=== PATIENT | male | born 1960 | race Caucasian/White ===

== ENCOUNTER 2018-05-19 07:15 | Inpatient (IN) | payer SELFPAY ==
[2018-05-19 07:57] LABS: HEMATOCRIT 43.5 % (41.0-60); MEAN CORPUSCULAR HEMOGLOBIN 30.4 pg (26.0-30.0); MEAN CORPUSCULAR HGB CONC 34.6 pg (28.0-36.0); MEAN PLATELET VOLUME 7.9 fl; PLATELET COUNT 171 Th/cmm (150-400); RED BLOOD COUNT 4.94 Mil/cmm (4.30-5.70); RED CELL DISTRIBUTION WIDTH 13.3 % (11.5-20.0)
[2018-05-19 08:03] LABS: WHITE BLOOD COUNT 3.5 Th/cmm (4.8-10.8)
[2018-05-19] MEDS ORDERED: cefTRIAXone 1 GM in Sodium Chloride 0.9% 50 ML IV ONE (08:08)
[2018-05-19 08:09] LABS: ALB/GLOB RATIO 1.3 (1.0-1.8); ALBUMIN 3.2 gm/dL (4.2-5.5); ALKALINE PHOSPHATASE 38 U/L (34-104); ANION GAP 14.4 (7.0-16.0); BILIRUBIN,TOTAL 1.4 mg/dL (0.3-1.0); BUN - UREA NITROGEN 27 mg/dL (7-25); CALCIUM SERUM 8.6 mg/dL (8.6-10.3); CARBON DIOXIDE 20.9 mEq/L (21.0-31.0); CHLORIDE 99 mEq/L (98-107); CREATININE - SERUM 1.4 mg/dL (0.7-1.3); GFR AFRICAN-AMERICAN > 60.0 ml/min (>90); GFR NON AFRICAN-AMERICAN 55.7 ml/min; GLUCOSE 121 mg/dL (70-105); MAGNESIUM 1.6 mg/dL (1.9-2.7); PHOSPHOROUS 2.5 mg/dL (2.5-5.0); POTASSIUM SERUM 4.3 mEq/L (3.5-5.1); SGOT 15 U/L (13-39); SGPT/ALT 14 U/L (7-52); SODIUM SERUM 130 mEq/L (136-145); TOTAL PROTEIN,SERUM 5.7 gm/dL (6.0-8.3)
--- NOTE | 2018-05-19 08:11 | ED Physician Chart ---
ED Chief Complaint/HPI - Patient Information Date Seen:: 05/19/18 Time Seen:: 07:25 Allergies:: Allergies Allergy/AdvReac Type Severity Reaction Status Date / Time No Known Allergies Allergy Verified 05/19/18 07:23 Vitals:: Vital Signs - 8 hr 05/19/18 07:27 Temp 98.2 F HR 113 RR 24 BP 118/71 O2 Sat % 93 ED Physical Exam - Physical Examination General/Constitutional: Awake, GCS 15, Non-toxic appearing Other Gen/Cons comments:: in moderate distress, clutching his right chest. Head: Atraumatic Eyes: Lids, conjuctiva normal, PERRL, EOMI Skin: Nl inspection, No rash, No skin lesions, No ecchymosis, Well hydrated, No lymphadenopathy ENMT: External ears, nose nl Other ENMT comments:: dry mucous membranes. Poor dentition. Neck: Nontender, Full ROM w/o pain, No JVD, No nuchal rigidity, No bruit, No mass, No stridor Other Respiratory comments:: Decreased breath sounds right upper lobe minimal respiratory distress. Cardio Vascular: No murmur, gallop, rubs, NL S1 S2 Other Cardio Vascular comments:: tachycardia. GI: No tenderness/rebounding/guarding, No organomegaly, No hernia, Normal BS's, Nondistended, No mass/bruits, No McBurney tenderness : No CVA tenderness Extremities: No tenderness or effusion, Full ROM, normal strength in all extremities, No edema, Normal digits & nails Neuro/Psych: Alert/oriented, Normal sensory exam, Normal motor strength, Judgement/insight normal, Mood normal, No focal deficits Misc: Normal back, No paraspinal tenderness ED Labs/Radiology/EKG Results - Lab Results Results: Laboratory Tests 05/19/18 07:30 WBC 3.5 L RBC 4.94 Hgb 15.0 Hct 43.5 MCV 88.0 MCH 30.4 H MCHC Differential 34.6 RDW 13.3 Plt Count 171 MPV 7.9 Add Manual Diff YES ED Assessment - Assessment General Assessment: 12 lead EKG: sinus tachycardia, Nonspecific ST T wave changes. Flipped t wave in V1. EKG from 7:22:50 a.mMarely Delarosa M.D. Spoke to the housefellow, James, who says that we have one last bed available in the ICU and that the patient can be given that bed. 8:48 a.m. Sergey Martinez called at 8:50 a.m. ED Septic Shock - . Is Septic Shock (SBP<90, OR Lactate>4 mmol\L) present?: No - <6hrs of presentation: Vital Signs: Vital Signs - 8 hr 05/19/18 07:27 Temp 98.2 F HR 113 RR 24 BP 118/71 O2 Sat % 93 ED Reassessment (Disposition) - Reassessment Reassessment Condition:: Improved - Diagnosis Diagnosis:: Sepsis Hypotension Hypoxia (92% or lower) Right upper lobe pneumonia Renal insufficiency Dehydration Elevated bilirubin Low magnesium - Patient Disposition Discharge/Transfer:: Acute Care w/in this hosp Accepting Physician:: Dr. Martinez Time Called:: 09:02 a.m. Time Responded:: 09:15 Admitted to:: ICU
[2018-05-19 08:30] LABS: BAND NEUTROPHILE 20 % (0-10); BASOPHIL 0 % (0-3); EOSINOPHIL 0 % (0-5); LYMPHOCYTE 17 % (20-50); MONOCYTE 3 % (2-10); NEUTROPHILS 60 % (40-80)
[2018-05-19] MEDS ORDERED: Lactated Ringer 1,000 ML IV SCH ×2 (08:35→09:00)
[2018-05-19] MEDS ORDERED: Azithromycin 500 MG in Sodium Chloride 0.9% 250 ML IV ONE (08:35)
[2018-05-19] MEDS ORDERED: Maalox 30 mL Cup PO ONE (08:55)
[2018-05-19] MEDS ORDERED: Lactated Ringer 1,000 ML IV ONE ×2 (08:57→11:04)
[2018-05-19] MEDS ORDERED: D5-0.9NS w/KCL 20mEq 1,000 ML IV ONE (09:17)
[2018-05-19 09:21] LABS: INR 1.21 (0.5-1.4); PROTHROMBIN TIME (TEST) 12.7 SECONDS (9.5-11.5)
[2018-05-19] MEDS ORDERED: Azithromycin 500 MG in Sodium Chloride 0.9% 250 ML IV SCH (09:30)
--- NOTE | 2018-05-19 09:33 | Diagnostic Imaging Report ---
Portable chest x-ray HISTORY: Pain The overall heart size appears normal. There is extensive abnormal parenchymal density with suggestion of possible pleural involvement noted in the right upper hemithorax. Findings may be associated with pneumonia. Underlying pathology including neoplasm cannot be excluded. Clinical correlation is needed. If necessary, a follow-up CT scan would be helpful. IMPRESSION: 1. Extensive abnormal density within the right upper hemithorax but appears to be both parenchymal and pleural. Changes may be related to pneumonia. However, a neoplastic etiology cannot be excluded. Clinical correlation and if necessary a follow-up CT scan would provide for further assessment.
[2018-05-19] MEDS: Albuterol/Ipratropium Neb 3 ML AERS HHN SCH ×4 (11:18→22:24)
[2018-05-19] MEDS: Enoxaparin 40 mg/0.4 mL 0.4mL Syr SUBQ SCH (14:08)
[2018-05-19] MEDS: Levofloxacin 750mg/150mL 750 MG/150 ML BAG IV SCH (14:09)
--- NOTE | 2018-05-19 14:26 | History & Physical ---
ADMIT DATE: 05/19/2018 CHIEF COMPLAINT: Cough, shortness of breath, right-sided chest pain for 2 days' duration. HISTORY OF PRESENT ILLNESS: The patient is a 57-year-old male with long history of chronic smoking, presented to the Emergency Room with cough, shortness of breath, right-sided chest pain for 2 days' duration, evaluated by the ER physician. Initial workup significant for right upper lobe pneumonia with bandemia, lactic acidosis, and hypotension. The patient received 2 liter fluid in the Emergency Room and admitted to ICU. The patient started on IV antibiotic, IV fluid. Blood culture ordered. Pulmonology and Infectious Disease consultation obtained. The patient denies any nausea, any vomiting. No dysuria or hematuria. The patient denies any hospitalization other than for hernia repair and appendectomy. He does not see any physician. He does not have a primary physician and he does not take any medication. PAST MEDICAL HISTORY: Negative. PAST SURGICAL HISTORY: Inguinal hernia repair, appendectomy. ALLERGIES: None. MEDICATIONS: None. SOCIAL HISTORY: Chronic smoker. No alcohol or drugs. 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 FAMILY HISTORY: Noncontributory. REVIEW OF SYSTEMS: RENAL SYSTEM: No history of chronic renal disorder. CARDIOVASCULAR SYSTEM: No coronary artery disease. ENDOCRINE SYSTEM: No diabetes or thyroid problem. GASTROINTESTINAL SYSTEM: No upper or lower gastrointestinal bleed. NEUROLOGICAL SYSTEM: No seizure disorder. MUSCULOSKELETAL SYSTEM: No muscular dystrophy. HEMATOLOGIC SYSTEM: No bleeding tendencies. RESPIRATORY SYSTEM: Chronic smoker. GENITOURINARY: No dysuria or hematuria. PHYSICAL EXAMINATION: GENERAL: He is awake, alert, oriented, not in pain or distress. VITAL SIGNS: Temperature 99.6, heart rate 98, blood pressure 95/55. HEENT: Normocephalic. Pupils reactive to light and accommodation. Sclerae clear. NECK: Supple. Negative for lymphadenopathy, JVD or bruit. CHEST: Diminished on the right side. HEART: S1, S2 normal. ABDOMEN: Soft, bowel sounds positive. EXTREMITIES: No edema. NEUROLOGIC: Awake, alert, oriented. No focal motor or sensory deficit. Cranial nerves 2-12 intact. LABORATORY DATA: White blood 3.5, hemoglobin 15, hematocrit 43.5, platelet 171. PT 12.7, INR 1.2. Sodium 130, potassium 4.3, BUN 27, creatinine 0.4. Lactic acid 2.44, magnesium ___.6, troponin less than 0.01. D-dimer is 1640. ASSESSMENT: 1. Right upper lobe pneumonia. 2. Dehydration. 3. Acute kidney injury. 4. Chronic smoker. 5. Lactic acidosis. PLAN: The patient admitted to the ICU under Dr. Martinez's service. Start him on D5 NS with 20 mEq KCl at 150 mL per hour, Rocephin 1 g IV daily, Zithromax 500 IV daily, DuoNeb nebulizer every 4 hours, Lovenox [address] of the chest ordered. Venous Doppler for lower extremity is ordered. The patient is a full code. CBC, CMP for tomorrow. JOB# [id number]
[2018-05-19] MEDS ORDERED: Mag Sulfate 2gm/50mL Premix 2 GM/50 ML BAG IV ONE (17:39)
[2018-05-19 18:39] LABS: URINE MICROSCOPIC INDICATED? YES; URINE SOURCE CLEAN C
[2018-05-19 18:41] LABS: URINE BILIRUBIN SMALL (NEGATIVE); URINE BLOOD NEGATIVE (NEGATIVE); URINE CLARITY CLEAR (CLEAR); URINE COLOR YELLOW; URINE GLUCOSE (UA) NEGATIVE (NEGATIVE); URINE KETONE NEGATIVE (NEGATIVE); URINE LEUKOCYTE ESTERASE NEGATIVE (NEGATIVE); URINE NITRATE NEGATIVE (NEGATIVE); URINE PROTEIN TRACE mg/dL (NEGATIVE)
[2018-05-19 18:45] LABS: URINE EPITHELIAL CELLS FEW /lpf (FEW); URINE WBC 0-2 /hpf (0-5)
[2018-05-19 18:46] LABS: URINE BACTERIA 1+ /hpf (NONE SEEN); URINE FINE GRANULAR CAST 0-2 /lpf (NONE SEEN)
[2018-05-19 18:50] LABS: AMPHETAMINE URINE POSITIVE (NEGATIVE); BARBITURATES URINE NEGATIVE (NEGATIVE); BENZODIAZEPINES QUAL URINE NEGATIVE (NEGATIVE); CANNABINOID THC NEGATIVE (NEGATIVE); COCAINE METABOLITE QUAL URINE NEGATIVE (NEGATIVE); METHADONE URINE NEGATIVE (NEGATIVE); METHAMPHETAMINES QUAL URINE POSITIVE (NEGATIVE); OPIATES (MORPHINE) QUAL. URINE NEGATIVE (NEGATIVE); PHENCYCLIDINE (PCP) URINE NEGATIVE (NEGATIVE); TRICYCLICS (TCA) QUAL. URINE NEGATIVE (NEGATIVE)
[2018-05-19] MEDS: methylPREDNISolone SS 40 mg Vial IVP SCH (21:36)
[2018-05-20] MEDS: Albuterol/Ipratropium Neb 3 ML AERS HHN SCH ×6 (02:58→22:35)
[2018-05-20 05:03] LABS: HEMOGLOBIN 14.3 gm/dL (12-16); MEAN CELL VOLUME 89.8 fl (80-99); MEAN CORPUSCULAR HEMOGLOBIN 29.9 pg (26.0-30.0); MEAN CORPUSCULAR HGB CONC 33.4 pg (28.0-36.0); MEAN PLATELET VOLUME 8.3 fl; PLATELET COUNT 157 Th/cmm (150-400); RED BLOOD COUNT 4.78 Mil/cmm (4.30-5.70); RED CELL DISTRIBUTION WIDTH 13.3 % (11.5-20.0); WHITE BLOOD COUNT 7.6 Th/cmm (4.8-10.8)
[2018-05-20] MEDS: methylPREDNISolone SS 40 mg Vial IVP SCH ×3 (05:06→21:06)
[2018-05-20 05:23] LABS: ALB/GLOB RATIO 1.2 (1.0-1.8); ALBUMIN 2.9 gm/dL (4.2-5.5); ALKALINE PHOSPHATASE 37 U/L (34-104); ANION GAP 12.3 (7.0-16.0); BILIRUBIN,TOTAL 0.6 mg/dL (0.3-1.0); BUN - UREA NITROGEN 36 mg/dL (7-25); CALCIUM SERUM 8.7 mg/dL (8.6-10.3); CHLORIDE 102 mEq/L (98-107); CREATININE - SERUM 1.5 mg/dL (0.7-1.3); GFR AFRICAN-AMERICAN > 60.0 ml/min (>90); GFR NON AFRICAN-AMERICAN 51.5 ml/min; GLUCOSE 192 mg/dL (70-105); MAGNESIUM 2.5 mg/dL (1.9-2.7); POTASSIUM SERUM 4.3 mEq/L (3.5-5.1); SGOT 9 U/L (13-39); SGPT/ALT 10 U/L (7-52); SODIUM SERUM 134 mEq/L (136-145); TOTAL PROTEIN,SERUM 5.4 gm/dL (6.0-8.3)
[2018-05-20 05:56] LABS: BAND NEUTROPHILE 10 % (0-10); LYMPHOCYTE 11 % (20-50); MONOCYTE 6 % (2-10); NEUTROPHILS 73 % (40-80)
--- NOTE | 2018-05-20 08:15 | Diagnostic Imaging Report ---
Exam: CT examination of chest. HISTORY: Pneumonia Total DLP equals 319 CTDI equals 7.3 Findings: Multiple contiguous thin section of the chest were obtained from thoracic outlet to the upper abdomen without the administration of contrast material. No prior studies available comparison. The study demonstrates extensive consolidation pneumonia right upper lung with atelectasis and collapse. There is evidence for air bronchogram. The visualized left lung parenchyma demonstrates mild peribronchial infiltrate in left base. Bilateral pleural effusions appreciated greater the right side. Mediastinal structures midline. Adenopathy is difficult to appreciated due to lack of contrast material Bony thorax demonstrate no evidence for lytic or blastic changes. IMPRESSION: Extensive opacification of the right upper lung with consolidation pneumonia area Mild left basilar infiltrate. Small bilateral pleural effusions. Follow-up dictation recommended.
--- NOTE | 2018-05-20 08:15 | Diagnostic Imaging Report ---
Exam: Doppler ultrasound examination deep venous circulation bilaterally. Diagnosis: Deep venous thrombosis. Real-time ultrasonography of lower extremities was performed utilizing color Doppler technique. The study demonstrates normal compressibility and augmentation of deep venous system bilaterally. IMPRESSION: Normal examination, no evidence of deep venous thrombosis bilaterally.
--- NOTE | 2018-05-20 08:16 | Diagnostic Imaging Report ---
Exam: Chest x-ray portable HISTORY: Placement of PICC line catheter. Findings: Portable summation of chest at 1720 hours reviewed and compared to prior study same date earlier. The study demonstrates interval placement of right-sided PICC line with tip in superior vena cava. IMPRESSION: Right-sided PICC line with the tip in superior vena cava.
[2018-05-20] MEDS: Enoxaparin 40 mg/0.4 mL 0.4mL Syr SUBQ SCH (09:05)
[2018-05-20] MEDS ORDERED: Azithromycin 500 mg in 0.9% NS 250 mL IV SCH (10:00)
[2018-05-20] MEDS: Levofloxacin 750mg/150mL 750 MG/150 ML BAG IV SCH (12:57)
[2018-05-20] MEDS ORDERED: Vancomycin HCl 1.75 GM in Sodium Chloride 0.9% 500 ML IV ONE (13:00)
--- NOTE | 2018-05-20 19:01 | Consultation ---
DATE OF CONSULTATION: 05/19/2018 HISTORY OF PRESENT ILLNESS: This is a 57-year-old male, smoker, started having right-sided pleuritic chest pain with cough and fever. The patient was found to have sepsis and septic shock, started on Levophed, admitted to ICU. Infectious consultation was called, the patient was seen right away. PAST SURGICAL HISTORY: Inguinal hernia repair, appendectomy. ALLERGIES: No allergies. FAMILY HISTORY: No family history. REVIEW OF SYSTEMS: A 14-point review of system negative except above. PHYSICAL EXAMINATION: GENERAL: He is alert, awake, sick-looking male, on Levophed 7 mcg with the following vital signs. VITAL SIGNS: Temperature 97.6, pulse 88, respiration 18, blood pressure 100/60. HEENT: Mild pallor, no icterus or plaque. NECK: Supple. LUNGS: Breath sounds bilaterally . Bronchial breathing on the right chest. ABDOMEN: Soft, bowel sounds present. NODES: No cervical lymph nodes. LABORATORY DATA: White count 3000, hemoglobin is 15 grams, platelets 171. Sputum culture is contaminated. Blood cultures sent. CT of chest shows right-sided consolidation involving the right upper lobe. DIAGNOSES: Pneumonia, sepsis, septic shock, rule out TB, isolation, AFB sputum. PLAN: Empirically started on Zosyn, vancomycin and Levaquin, supportive care. Pulmonary evaluation. Rest of the care as ordered in CPOE. Also, the patient is on steroid. Thank you Dr. Martinez for this consultation. JOB# [id number]
--- NOTE | 2018-05-20 22:09 | Internal Medicine Prog Note ---
Internal Medicine Subjective - Subjective Service Date: 05/20/18 Patient seen and examined:: with staff Patient is:: awake, verbal, in bed, talking Per staff patient has:: no adverse event Internal Medicine Objective - Results Result Diagrams: 05/20/18 04:30 05/20/18 04:30 Recent Labs: Laboratory Last Values WBC 7.6 Th/cmm (4.8-10.8) 05/20/18 04:30 RBC 4.78 Mil/cmm (4.30-5.70) 05/20/18 04:30 Hgb 14.3 gm/dL (12-16) 05/20/18 04:30 Hct 43.0 % (41.0-60) 05/20/18 04:30 MCV 89.8 fl (80-99) 05/20/18 04:30 MCH 29.9 pg (26.0-30.0) 05/20/18 04:30 MCHC Differential 33.4 pg (28.0-36.0) 05/20/18 04:30 RDW 13.3 % (11.5-20.0) 05/20/18 04:30 Plt Count 157 Th/cmm (150-400) 05/20/18 04:30 MPV 8.3 fl 05/20/18 04:30 Add Manual Diff YES 05/20/18 04:30 Band Neutrophils % 10 % (0-10) 05/20/18 04:30 Neutrophils (Manual) 73 % (40-80) 05/20/18 04:30 Lymphocytes 11 % (20-50) L 05/20/18 04:30 Monocytes 6 % (2-10) 05/20/18 04:30 Eosinophils 0 % (0-5) 05/19/18 07:30 Basophils 0 % (0-3) 05/19/18 07:30 PT 12.7 SECONDS (9.5-11.5) H 05/19/18 07:30 INR 1.21 (0.5-1.4) 05/19/18 07:30 PTT (Actin FS) 30.5 SECONDS (26.0-38.0) 05/19/18 07:30 D-Dimer 1640 ng/mL (100-400) H 05/19/18 07:30 Sodium 134 mEq/L (136-145) L 05/20/18 04:30 Potassium 4.3 mEq/L (3.5-5.1) 05/20/18 04:30 Chloride 102 mEq/L (98-107) 05/20/18 04:30 Carbon Dioxide 24.0 mEq/L (21.0-31.0) 05/20/18 04:30 Anion Gap 12.3 (7.0-16.0) 05/20/18 04:30 BUN 36 mg/dL (7-25) H 05/20/18 04:30 Creatinine 1.5 mg/dL (0.7-1.3) H 05/20/18 04:30 Est GFR ( Amer) > 60.0 ml/min (>90) 05/20/18 04:30 Est GFR (Non-Af Amer) 51.5 ml/min 05/20/18 04:30 BUN/Creatinine Ratio 24.0 05/20/18 04:30 Glucose 192 mg/dL (70-105) H 05/20/18 04:30 Whole Bld Lactic Acid 2.44 mmol/L (0.60-1.99) H* 05/19/18 11:00 Calcium 8.7 mg/dL (8.6-10.3) 05/20/18 04:30 Phosphorus 2.5 mg/dL (2.5-5.0) 05/19/18 07:30 Magnesium 2.5 mg/dL (1.9-2.7) 05/20/18 04:30 Total Bilirubin 0.6 mg/dL (0.3-1.0) 05/20/18 04:30 AST 9 U/L (13-39) L 05/20/18 04:30 ALT 10 U/L (7-52) 05/20/18 04:30 Alkaline Phosphatase 37 U/L (34-104) 05/20/18 04:30 Troponin I < 0.01 ng/mL (0.01-0.05) L 05/19/18 07:30 Total Protein 5.4 gm/dL (6.0-8.3) L 05/20/18 04:30 Albumin 2.9 gm/dL (4.2-5.5) L 05/20/18 04:30 Globulin 2.5 gm/dL 05/20/18 04:30 Albumin/Globulin Ratio 1.2 (1.0-1.8) 05/20/18 04:30 Urine Source CLEAN C 05/19/18 15:35 Urine Color YELLOW 05/19/18 15:35 Urine Clarity CLEAR (CLEAR) 05/19/18 15:35 Urine pH 5.0 (4.6 - 8.0) 05/19/18 15:35 Ur Specific [place] >= 1.030 (1.005-1.030) 05/19/18 15:35 Urine Protein TRACE mg/dL (NEGATIVE) 05/19/18 15:35 Urine Glucose (UA) NEGATIVE mg/dL (NEGATIVE) 05/19/18 15:35 Urine Ketones NEGATIVE mg/dL (NEGATIVE) 05/19/18 15:35 Urine Blood NEGATIVE (NEGATIVE) 05/19/18 15:35 Urine Nitrate NEGATIVE (NEGATIVE) 05/19/18 15:35 Urine Bilirubin SMALL (NEGATIVE) H 05/19/18 15:35 Urine Urobilinogen 2.0 E.U./dL (0.2 - 1.0) 05/19/18 15:35 Ur Leukocyte Esterase NEGATIVE (NEGATIVE) 05/19/18 15:35 Urine RBC 2-5 /hpf (0-5) H 05/19/18 15:35 Urine WBC 0-2 /hpf (0-5) 05/19/18 15:35 Ur Epithelial Cells FEW /lpf (FEW) 05/19/18 15:35 Urine Bacteria 1+ /hpf (NONE SEEN) H 05/19/18 15:35 Fine Granular Casts 0-2 /lpf (NONE SEEN) H 05/19/18 15:35 Urine Mucus FEW /lpf (FEW) 05/19/18 15:35 Urine Opiates Screen NEGATIVE (NEGATIVE) 05/19/18 15:35 Urine Methadone Screen NEGATIVE (NEGATIVE) 05/19/18 15:35 Ur Barbiturates Screen NEGATIVE (NEGATIVE) 05/19/18 15:35 Ur Tricyclics Screen NEGATIVE (NEGATIVE) 05/19/18 15:35 Ur Phencyclidine Scrn NEGATIVE (NEGATIVE) 05/19/18 15:35 Amphetamines Screen POSITIVE (NEGATIVE) H 05/19/18 15:35 U Methamphetamines Scrn POSITIVE (NEGATIVE) H 05/19/18 15:35 U Benzodiazepines Scrn NEGATIVE (NEGATIVE) 07/29/18 15:35 U Cocaine Metab Screen NEGATIVE (NEGATIVE) 05/19/18 15:35 U Cannabinoids Screen NEGATIVE (NEGATIVE) 05/19/18 15:35 - Physical Exam Vitals and I&O: Vital Signs Temp 97.9 F 05/20/18 16:00 Pulse 81 05/20/18 18:45 Resp 22 05/20/18 18:45 BP 108/62 05/20/18 18:00 Pulse Ox 96 05/20/18 20:00 Intake & Output 05/20/18 05/20/18 05/21/18 06:59 18:59 06:59 Intake Total 929.4 1728.6 Output Total 700 1200 Balance 229.4 528.6 Weight (lbs) 90.718 kg 90.718 kg Intake: Intake, IV Amount 429.4 928.6 Levofloxacin 750mg/150mL 150 750 mg In 150 ml @ 100 mls/hr IV Q24HR [facility] Rx#: [id number] Norepinephrine 4 mg In 279.4 228.6 Dextrose 5% 250 ml @ Per Protocol IV TITR PRN Rx#: [id number] Piperacillin Sodium/ 150 50 Tazobact 3.375 gm In Sodium Chloride 0.9% 50 ml @ 100 mls/hr IV Q6HR [facility] Rx#:[id number] Vancomycin HCl 1.75 gm In 500 Sodium Chloride 0.9% 500 ml @ 250 mls/hr IV ONCE ONE Rx#:[id number] Oral 500 800 Output: Urine 700 1200 Stool 0 Other: # Bowel Movements 0 Weight Source Bedscale Bedscale Active Medications: Current Medications Albuterol/Ipratropium (Duoneb Neb) 3 ml HHN Q4HRT [facility] Stop: 07/18/18 10:59 Last Admin: 05/20/18 18:44 Dose: 3 ml Enoxaparin Sodium (Lovenox) 40 mg SUBQ DAILY [facility] Stop: 07/18/18 13:14 Last Admin: 05/20/18 09:05 Dose: 40 mg Norepinephrine Bitartrate 4 mg (/ Dextrose) 254 mls @ 0 mls/hr IV TITR PRN; Protocol PRN Reason: BP MAINTENANCE (PER PROTOCOL) Stop: 07/18/18 13:08 Last Titration: 05/20/18 11:30 Dose: Infused Levofloxacin (Levaquin Pb) 750 mg in 150 mls @ 100 mls/hr IV Q24HR [facility] Stop: 07/18/18 13:29 Last Infusion: 05/20/18 14:27 Dose: Infused Piperacillin Sod/Tazobactam (Sod 3.375 gm/ Sodium Chloride) 50 mls @ 100 mls/ hr IV Q6HR [facility] Stop: 07/18/18 17:59 Last Admin: 05/20/18 17:25 Dose: 100 mls/hr Ketorolac Tromethamine (Toradol) 50 mg IVP Q4HR PRN PRN Reason: Pain Stop: 07/18/18 13:12 Last Admin: 05/20/18 21:06 Dose: 50 mg Methylprednisolone Sodium Succinate (Solu-Medrol) 40 mg IVP Q8HR [facility] Stop: 07/18/18 20:59 Last Admin: 05/20/18 21:06 Dose: 40 mg Miscellaneous (Vancomycin Iv Per Pharmacy) 1 ea MC PRN [facility] Stop: 07/18/18 18:14 General: alert HEENT: NC/AT, PERRLA, EOMI, anicteric sclerae, throat clear Neck: Supple, No JVD, No thyromegaly, +2 carotid pulse wo bruit, No LAD Lungs: congested, ronchi Cardiovascular: Normal S1, Normal S2 Abdomen: non-tender, non-distended Extremities: clear Neurological: no change Internal Medicine Assmt/Plan - Assessment Assessment: 1.RT SIDE PNEUMONIA. 2.SEPSIS - Plan Plan: CONTINUE ON CURRENT MEDICATION AND DIET. Nutritional Asmnt/Malnutr-PDOC - Dietary Evaluation Malnutrition Findings (Please click <Entered> for more info): Nutritional Asmnt/Malnutrition Start: 05/20/18 15: 26 Text: Status: Complete Freq: Protocol: Document 05/20/18 15:26 LCHENG (Rec: 05/20/18 15:50 LCHENG [email or web address]) Nutritional Asmnt/Malnutrition Patient General Information Diagnosis Sepsis, pneumonia Pertinent Medical Hx/Surgical Hx Inguinal hernia repair, appendectomy Subjective Information Pt seen in airbone isolation room d/t possible TB. RN reported pt ate very well. Per EMR, PO intake 100% of breakfast today. Pt was on levophed and weaned off in the afternoon. Current Diet Order/ Nutrition Support Cardiac Pertinent Medications levaquin, piperacillin, levophed Pertinent Labs 05/19: Na 130, BUN 27, Cr 1.4, Glucose 121 Lactic acid 2.46, 2.44 05/20: Na 134, BUN 36, Cr 1.5, Glucose 192 Nutritional Hx/Data Height 1.88 m Height (Calculated Centimeters) 188.0 Current Weight (lbs) 90.718 kg Weight (Calculated Kilograms) 90.7 Weight (Calculated Grams) 15657.5 [place] Body Weight 190 Body Mass Index (BMI) 25.7 GI Symptoms GI Symptoms None Last BM none Difficult in: None Skin Integrity/Comment: intact Current %PO Good (75-100%) Estimated Nutritional Goals BEE in Kcals: Using Current wt Calories/Kcals/Kg 25-30 Kcals Calculated 3691-0550 Protein: Using Current wt Protein g/k-1.2 monitor renal labs Protein Calculated 91-109 Fluid: ml 2275-2730ml (1ml/kcal) Nutritional Problem 2. Problem Problem increased nutrition needs ( calorie and protein) Etiology increased metabolic demand Signs/Symptoms: dx of sepsis and PNA 1. Problem Problem altered nutrition related labs Etiology electrolytes imbalance, possible renal dysfunction and endocrine dysfunction Signs/Symptoms: Na 130-134, BUN 27-36, Cr 1.4- 1.5, glucose 121-192 Malnutrition Alert Is there a minimum of two criteria No selected? Query Text:Check all the applicable criteria. A minimum of two criteria are recommended for diagnosis of either severe or non-severe malnutrition. Malnutrition Related to Morbid Obesity Malnutrition related to morbid obesity No Intervention/Recommendation Comments 1. Continue with current diet as ordered. Consider adding CCHO diet if glucose continue high. 2. Monitor PO intake, wt, labs and skin integrity 3. F/U as high risk in 2-3 days, 05/22-05/23 Expected Outcomes/Goals Expected Outcomes/Goals 1. PO intake to meet at least 75% of nutritional needs. 2. Wt stability, skin to remain intact, labs to approach WNL.
--- NOTE | 2018-05-20 23:33 | Consultation ---
DATE OF CONSULTATION: 05/20/2018 PATIENT OF: Dr. Martinez. Thank you very much, Dr. Martinez for this consultation. HISTORY OF PRESENT ILLNESS: This is a 57-year-old male who started having complaints of right-sided chest pain under his armpit a couple of days and started having shortness of breath and cough and congestion and is admitted through the Emergency Room, was found to have pneumonia, was hypotensive, placed on IV fluids and Levophed. Appears to be doing okay, still have some cough, mostly dry. Denies history for any medical problems in the past and does not take any medications. SOCIAL HISTORY: Significant for smoking. He said a half a pack a day for almost 30 years. REVIEW OF SYSTEMS: GENERAL: Some weakness and fatigue. CARDIOVASCULAR: No chest pain. RESPIRATORY: Shortness of breath, cough, congestion. GASTROINTESTINAL: No nausea or vomiting. PHYSICAL EXAMINATION: GENERAL: Awake, alert, not in acute distress. VITAL SIGNS: Temperature is 97.8, pulse 68, respirations 20, blood pressure 115/61, saturation 97%. HEENT: Atraumatic, normocephalic. Pupils equal and reactive to light and accommodation. Ears, nose and throat are normal. NECK: Supple. No JVD. CHEST: There is rhonchi, right side, clear on the left side. HEART: Regular rate and rhythm. ABDOMEN: Soft. EXTREMITIES: No edema. LABORATORY DATA: WBC 7.6, hemoglobin 14.3, hematocrit 43.0, platelets is 157. Sodium 143, potassium 4.3, BUN is 36, creatinine 1.5. Chest x-ray showed extensive consolidation of the right upper lobe area. IMPRESSION: A 57-year-old male, most likely community-acquired pneumonia, underlying airway problems, probably COPD, many years of smoking. PLAN: 1. Antibiotics. 2. Nebulized treatment. 3. Pulmonary toilet, supportive care and followup chest x-ray. Thank you very much for this consultation. We will follow the patient with you. JOB# [id number]
[2018-05-21] MEDS: Albuterol/Ipratropium Neb 3 ML AERS HHN SCH ×6 (03:14→23:50)
[2018-05-21 05:17] LABS: ANION GAP 11.9 (7.0-16.0); BUN - UREA NITROGEN 29 mg/dL (7-25); CALCIUM SERUM 8.5 mg/dL (8.6-10.3); CARBON DIOXIDE 25.2 mEq/L (21.0-31.0); CHLORIDE 102 mEq/L (98-107); CREATININE - SERUM 1.3 mg/dL (0.7-1.3); GFR AFRICAN-AMERICAN > 60.0 ml/min (>90); GFR NON AFRICAN-AMERICAN > 60.0 ml/min; GLUCOSE 267 mg/dL (70-105); POTASSIUM SERUM 4.1 mEq/L (3.5-5.1); SODIUM SERUM 135 mEq/L (136-145)
[2018-05-21] MEDS: methylPREDNISolone SS 40 mg Vial IVP SCH ×3 (05:21→20:35)
[2018-05-21] MEDS: Vancomycin HCl 1.5 GM in Sodium Chloride 0.9% 500 ML IV SCH ×2 (08:56→20:35)
[2018-05-21] MEDS: Enoxaparin 40 mg/0.4 mL 0.4mL Syr SUBQ SCH ×2 (08:56→08:59)
--- NOTE | 2018-05-21 11:50 | Internal Medicine Prog Note ---
Internal Medicine Subjective - Subjective Patient is:: awake, verbal, in bed, talking Per staff patient has:: no adverse event Internal Medicine Objective - Results Result Diagrams: 05/20/18 04:30 05/21/18 04:05 Recent Labs: Laboratory Last Values WBC 7.6 Th/cmm (4.8-10.8) 05/20/18 04:30 RBC 4.78 Mil/cmm (4.30-5.70) 05/20/18 04:30 Hgb 14.3 gm/dL (12-16) 05/20/18 04:30 Hct 43.0 % (41.0-60) 05/20/18 04:30 MCV 89.8 fl (80-99) 05/20/18 04:30 MCH 29.9 pg (26.0-30.0) 05/20/18 04:30 MCHC Differential 33.4 pg (28.0-36.0) 05/20/18 04:30 RDW 13.3 % (11.5-20.0) 05/20/18 04:30 Plt Count 157 Th/cmm (150-400) 05/20/18 04:30 MPV 8.3 fl 05/20/18 04:30 Add Manual Diff YES 05/20/18 04:30 Band Neutrophils % 10 % (0-10) 05/20/18 04:30 Neutrophils (Manual) 73 % (40-80) 05/20/18 04:30 Lymphocytes 11 % (20-50) L 05/20/18 04:30 Monocytes 6 % (2-10) 05/20/18 04:30 Eosinophils 0 % (0-5) 05/19/18 07:30 Basophils 0 % (0-3) 05/19/18 07:30 PT 12.7 SECONDS (9.5-11.5) H 05/19/18 07:30 INR 1.21 (0.5-1.4) 05/19/18 07:30 PTT (Actin FS) 30.5 SECONDS (26.0-38.0) 05/19/18 07:30 D-Dimer 1640 ng/mL (100-400) H 05/19/18 07:30 Sodium 135 mEq/L (136-145) L 05/21/18 04:05 Potassium 4.1 mEq/L (3.5-5.1) 05/21/18 04:05 Chloride 102 mEq/L (98-107) 05/21/18 04:05 Carbon Dioxide 25.2 mEq/L (21.0-31.0) 05/21/18 04:05 Anion Gap 11.9 (7.0-16.0) 05/21/18 04:05 BUN 29 mg/dL (7-25) H 05/21/18 04:05 Creatinine 1.3 mg/dL (0.7-1.3) 05/21/18 04:05 Est GFR ( Amer) > 60.0 ml/min (>90) 05/21/18 04:05 Est GFR (Non-Af Amer) > 60.0 ml/min 05/21/18 04:05 BUN/Creatinine Ratio 22.3 05/21/18 04:05 Glucose 267 mg/dL (70-105) H 05/21/18 04:05 Whole Bld Lactic Acid 2.44 mmol/L (0.60-1.99) H* 05/19/18 11:00 Calcium 8.5 mg/dL (8.6-10.3) L 05/21/18 04:05 Phosphorus 2.5 mg/dL (2.5-5.0) 05/19/18 07:30 Magnesium 2.5 mg/dL (1.9-2.7) 05/20/18 04:30 Total Bilirubin 0.6 mg/dL (0.3-1.0) 05/20/18 04:30 AST 9 U/L (13-39) L 05/20/18 04:30 ALT 10 U/L (7-52) 05/20/18 04:30 Alkaline Phosphatase 37 U/L (34-104) 05/20/18 04:30 Troponin I < 0.01 ng/mL (0.01-0.05) L 05/19/18 07:30 Total Protein 5.4 gm/dL (6.0-8.3) L 05/20/18 04:30 Albumin 2.9 gm/dL (4.2-5.5) L 05/20/18 04:30 Globulin 2.5 gm/dL 05/20/18 04:30 Albumin/Globulin Ratio 1.2 (1.0-1.8) 05/20/18 04:30 Urine Source CLEAN C 05/19/18 15:35 Urine Color YELLOW 05/19/18 15:35 Urine Clarity CLEAR (CLEAR) 05/19/18 15:35 Urine pH 5.0 (4.6 - 8.0) 05/19/18 15:35 Ur Specific [place] >= 1.030 (1.005-1.030) 05/19/18 15:35 Urine Protein TRACE mg/dL (NEGATIVE) 05/19/18 15:35 Urine Glucose (UA) NEGATIVE mg/dL (NEGATIVE) 05/19/18 15:35 Urine Ketones NEGATIVE mg/dL (NEGATIVE) 05/19/18 15:35 Urine Blood NEGATIVE (NEGATIVE) 05/19/18 15:35 Urine Nitrate NEGATIVE (NEGATIVE) 05/19/18 15:35 Urine Bilirubin SMALL (NEGATIVE) H 05/19/18 15:35 Urine Urobilinogen 2.0 E.U./dL (0.2 - 1.0) 05/19/18 15:35 Ur Leukocyte Esterase NEGATIVE (NEGATIVE) 05/19/18 15:35 Urine RBC 2-5 /hpf (0-5) H 05/19/18 15:35 Urine WBC 0-2 /hpf (0-5) 05/19/18 15:35 Ur Epithelial Cells FEW /lpf (FEW) 05/19/18 15:35 Urine Bacteria 1+ /hpf (NONE SEEN) H 05/19/18 15:35 Fine Granular Casts 0-2 /lpf (NONE SEEN) H 05/19/18 15:35 Urine Mucus FEW /lpf (FEW) 05/19/18 15:35 Urine Opiates Screen NEGATIVE (NEGATIVE) 05/19/18 15:35 Urine Methadone Screen NEGATIVE (NEGATIVE) 05/19/18 15:35 Ur Barbiturates Screen NEGATIVE (NEGATIVE) 05/19/18 15:35 Ur Tricyclics Screen NEGATIVE (NEGATIVE) 05/19/18 15:35 Ur Phencyclidine Scrn NEGATIVE (NEGATIVE) 05/19/18 15:35 Amphetamines Screen POSITIVE (NEGATIVE) H 05/19/18 15:35 U Methamphetamines Scrn POSITIVE (NEGATIVE) H 05/19/18 15:35 U Benzodiazepines Scrn NEGATIVE (NEGATIVE) 05/19/18 15:35 U Cocaine Metab Screen NEGATIVE (NEGATIVE) 05/19/18 15:35 U Cannabinoids Screen NEGATIVE (NEGATIVE) 05/19/18 15:35 - Physical Exam Vitals and I&O: Vital Signs Temp 99.2 F 05/21/18 08:00 Pulse 82 05/21/18 11:31 Resp 19 05/21/18 11:31 BP 129/79 05/21/18 10:00 Pulse Ox 96 05/21/18 11:31 Intake & Output 05/20/18 05/21/18 05/21/18 18:59 06:59 18:59 Intake Total 1778.6 700 Output Total 1200 450 Balance 578.6 250 Weight (lbs) 90.718 kg 90.718 kg Intake: Intake, IV Amount 978.6 100 Levofloxacin 750mg/150mL 150 750 mg In 150 ml @ 100 mls/hr IV Q24HR [facility] Rx#: [id number] Norepinephrine 4 mg In 228.6 Dextrose 5% 250 ml @ Per Protocol IV TITR PRN Rx#: [id number] Piperacillin Sodium/ 100 100 Tazobact 3.375 gm In Sodium Chloride 0.9% 50 ml @ 100 mls/hr IV Q6HR [facility] Rx#:[id number] Vancomycin HCl 1.75 gm In 500 Sodium Chloride 0.9% 500 ml @ 250 mls/hr IV ONCE ONE Rx#:[id number] Oral 800 600 Output: Urine 1200 450 Stool 0 Other: Weight Source Bedscale Bedscale Active Medications: Current Medications Albuterol/Ipratropium (Duoneb Neb) 3 ml HHN Q4HRT [facility] Stop: 07/18/18 10:59 Last Admin: 05/21/18 11:31 Dose: 3 ml Enoxaparin Sodium (Lovenox) 40 mg SUBQ DAILY [facility] Stop: 07/18/18 13:14 Last Admin: 05/21/18 08:59 Dose: Not Given Norepinephrine Bitartrate 4 mg (/ Dextrose) 254 mls @ 0 mls/hr IV TITR PRN; Protocol PRN Reason: BP MAINTENANCE (PER PROTOCOL) Stop: 07/18/18 13:08 Last Titration: 05/20/18 11:30 Dose: Infused Levofloxacin (Levaquin Pb) 750 mg in 150 mls @ 100 mls/hr IV Q24HR [facility] Stop: 07/18/18 13:29 Last Infusion: 05/20/18 14:27 Dose: Infused Piperacillin Sod/Tazobactam (Sod 3.375 gm/ Sodium Chloride) 50 mls @ 100 mls/ hr IV Q6HR [facility] Stop: 07/18/18 17:59 Last Infusion: 05/21/18 05:50 Dose: Infused Vancomycin HCl 1.5 gm/ Sodium (Chloride) 500 mls @ 250 mls/hr IV Q12H [facility] Stop: 07/20/18 08:59 Last Admin: 05/21/18 08:56 Dose: 250 mls/hr Ketorolac Tromethamine (Toradol) 50 mg IVP Q4HR PRN PRN Reason: Pain Stop: 07/18/18 13:12 Last Admin: 05/20/18 21:06 Dose: 50 mg Methylprednisolone Sodium Succinate (Solu-Medrol) 40 mg IVP Q8HR [facility] Stop: 07/18/18 20:59 Last Admin: 05/21/18 05:21 Dose: 40 mg Miscellaneous (Vancomycin Iv Per Pharmacy) 1 ea MC PRN [facility] Stop: 07/18/18 18:14 Ondansetron HCl (Zofran) 4 mg IV Q4H PRN PRN Reason: Nausea / Vomiting Stop: 07/20/18 02:03 Last Admin: 05/21/18 02:09 Dose: 4 mg General: alert HEENT: NC/AT, PERRLA, EOMI, anicteric sclerae, throat clear Neck: Supple, No JVD, No thyromegaly, +2 carotid pulse wo bruit, No LAD Lungs: congested, ronchi Cardiovascular: Normal S1, Normal S2 Abdomen: non-tender, non-distended Extremities: clear Neurological: no change Internal Medicine Assmt/Plan - Assessment Assessment: 1.RT SIDE PNEUMONIA. 2.SEPSIS - Plan Plan: CONTINUE ON CURRENT MEDICATION AND DIET. Nutritional Asmnt/Malnutr-PDOC - Dietary Evaluation Malnutrition Findings (Please click <Entered> for more info): Nutritional Asmnt/Malnutrition Start: 05/20/18 15: 26 Text: Status: Complete Freq: Protocol: Document 05/20/18 15:26 LCHENG (Rec: 05/20/18 15:50 LCHARJITG [email or web address]) Nutritional Asmnt/Malnutrition Patient General Information Diagnosis Sepsis, pneumonia Pertinent Medical Hx/Surgical Hx Inguinal hernia repair, appendectomy Subjective Information [facility] d/t possible TB. RN reported pt ate very well. Per EMR, PO intake 100% of breakfast today. Pt was on levophed and weaned off in the afternoon. Current Diet Order/ Nutrition Support Cardiac Pertinent Medications levaquin, piperacillin, levophed Pertinent Labs 05/19: Na 130, BUN 27, Cr 1.4, Glucose 121 Lactic acid 2.46, 2.44 05/20: Na 134, BUN 36, Cr 1.5, Glucose 192 Nutritional Hx/Data Height 1.88 m Height (Calculated Centimeters) 188.0 Current Weight (lbs) 90.718 kg Weight (Calculated Kilograms) 90.7 Weight (Calculated Grams) 52065.5 [place] Body Weight 190 Body Mass Index (BMI) 25.7 GI Symptoms GI Symptoms None Last BM none Difficult in: None Skin Integrity/Comment: intact Current %PO Good (75-100%) Estimated Nutritional Goals BEE in Kcals: Using Current wt Calories/Kcals/Kg 25-30 Kcals Calculated 1131-4699 Protein: Using Current wt Protein g/k-1.2 monitor renal labs Protein Calculated 91-109 Fluid: ml 2275-2730ml (1ml/kcal) Nutritional Problem 2. Problem Problem increased nutrition needs ( calorie and protein) Etiology increased metabolic demand Signs/Symptoms: dx of sepsis and PNA 1. Problem Problem altered nutrition related labs Etiology electrolytes imbalance, possible renal dysfunction and endocrine dysfunction Signs/Symptoms: Na 130-134, BUN 27-36, Cr 1.4- 1.5, glucose 121-192 Malnutrition Alert Is there a minimum of two criteria No selected? Query Text:Check all the applicable criteria. A minimum of two criteria are recommended for diagnosis of either severe or non-severe malnutrition. Malnutrition Related to Morbid Obesity Malnutrition related to morbid obesity No Intervention/Recommendation Comments 1. Continue with current diet as ordered. Consider adding CCHO diet if glucose continue high. 2. Monitor PO intake, wt, labs and skin integrity 3. F/U as high risk in 2-3 days, 05/22-05/23 Expected Outcomes/Goals Expected Outcomes/Goals 1. PO intake to meet at least 75% of nutritional needs. 2. Wt stability, skin to remain intact, labs to approach WNL.
--- NOTE | 2018-05-21 12:42 | Diagnostic Imaging Report ---
Portable chest x-ray HISTORY: Pneumonia Compared to prior exam of 05/19/2018, no change in extensive consolidation and pleural reaction within the right upper hemithorax. Findings correspond to changes noted on the prior CT scan of May 21, 2018. IMPRESSION: 1. No significant change from 05/19/2018 as noted above
[2018-05-21] MEDS: Levofloxacin 750mg/150mL 750 MG/150 ML BAG IV SCH (14:22)
[2018-05-21 18:21] LABS: A1C % 5.8 % (4.0-6.0)
[2018-05-22] MEDS: Albuterol/Ipratropium Neb 3 ML AERS HHN SCH ×6 (03:50→23:28)
[2018-05-22] MEDS: methylPREDNISolone SS 40 mg Vial IVP SCH ×3 (05:05→21:43)
[2018-05-22] MEDS: Enoxaparin 40 mg/0.4 mL 0.4mL Syr SUBQ SCH (09:00)
[2018-05-22] MEDS: Vancomycin HCl 1.5 GM in Sodium Chloride 0.9% 500 ML IV SCH ×2 (10:06→21:43)
[2018-05-22] MEDS: Levofloxacin 750mg/150mL 750 MG/150 ML BAG IV SCH (12:31)
--- NOTE | 2018-05-22 23:20 | Internal Medicine Prog Note ---
Internal Medicine Subjective - Subjective Service Date: 05/22/18 Patient seen and examined:: with staff (HE FEELS BETTER,LESS SOB.) Patient is:: awake, verbal, in bed, talking Per staff patient has:: no adverse event Internal Medicine Objective - Results Result Diagrams: 05/20/18 04:30 05/22/18 07:30 Recent Labs: Laboratory Last Values WBC 7.6 Th/cmm (4.8-10.8) 05/20/18 04:30 RBC 4.78 Mil/cmm (4.30-5.70) 05/20/18 04:30 Hgb 14.3 gm/dL (12-16) 05/20/18 04:30 Hct 43.0 % (41.0-60) 05/20/18 04:30 MCV 89.8 fl (80-99) 05/20/18 04:30 MCH 29.9 pg (26.0-30.0) 05/20/18 04:30 MCHC Differential 33.4 pg (28.0-36.0) 05/20/18 04:30 RDW 13.3 % (11.5-20.0) 05/20/18 04:30 Plt Count 157 Th/cmm (150-400) 05/20/18 04:30 MPV 8.3 fl 05/20/18 04:30 Add Manual Diff YES 05/20/18 04:30 Band Neutrophils % 10 % (0-10) 05/20/18 04:30 Neutrophils (Manual) 73 % (40-80) 05/20/18 04:30 Lymphocytes 11 % (20-50) L 05/20/18 04:30 Monocytes 6 % (2-10) 05/20/18 04:30 Eosinophils 0 % (0-5) 05/19/18 07:30 Basophils 0 % (0-3) 05/19/18 07:30 PT 12.7 SECONDS (9.5-11.5) H 05/19/18 07:30 INR 1.21 (0.5-1.4) 05/19/18 07:30 PTT (Actin FS) 30.5 SECONDS (26.0-38.0) 05/19/18 07:30 D-Dimer 1640 ng/mL (100-400) H 05/19/18 07:30 Sodium 135 mEq/L (136-145) L 05/21/18 04:05 Potassium 4.1 mEq/L (3.5-5.1) 05/21/18 04:05 Chloride 102 mEq/L (98-107) 05/21/18 04:05 Carbon Dioxide 25.2 mEq/L (21.0-31.0) 05/21/18 04:05 Anion Gap 11.9 (7.0-16.0) 05/21/18 04:05 BUN 24 mg/dL (7-25) 05/22/18 07:30 Creatinine 1.0 mg/dL (0.7-1.3) 05/22/18 07:30 Est GFR ( Amer) > 60.0 ml/min (>90) 05/21/18 04:05 Est GFR (Non-Af Amer) > 60.0 ml/min 05/21/18 04:05 BUN/Creatinine Ratio 22.3 05/21/18 04:05 Glucose 267 mg/dL (70-105) H 05/21/18 04:05 Hemoglobin A1c % 5.8 % (4.0-6.0) 05/20/18 04:30 Whole Bld Lactic Acid 2.44 mmol/L (0.60-1.99) H* 05/19/18 11:00 Calcium 8.5 mg/dL (8.6-10.3) L 05/21/18 04:05 Phosphorus 2.5 mg/dL (2.5-5.0) 05/19/18 07:30 Magnesium 2.5 mg/dL (1.9-2.7) 05/20/18 04:30 Total Bilirubin 0.6 mg/dL (0.3-1.0) 05/20/18 04:30 AST 9 U/L (13-39) L 05/20/18 04:30 ALT 10 U/L (7-52) 05/20/18 04:30 Alkaline Phosphatase 37 U/L (34-104) 05/20/18 04:30 Troponin I < 0.01 ng/mL (0.01-0.05) L 05/19/18 07:30 Total Protein 5.4 gm/dL (6.0-8.3) L 05/20/18 04:30 Albumin 2.9 gm/dL (4.2-5.5) L 05/20/18 04:30 Globulin 2.5 gm/dL 05/20/18 04:30 Albumin/Globulin Ratio 1.2 (1.0-1.8) 05/20/18 04:30 Urine Source CLEAN C 05/19/18 15:35 Urine Color YELLOW 05/19/18 15:35 Urine Clarity CLEAR (CLEAR) 05/19/18 15:35 Urine pH 5.0 (4.6 - 8.0) 05/19/18 15:35 Ur Specific [place] >= 1.030 (1.005-1.030) 05/19/18 15:35 Urine Protein TRACE mg/dL (NEGATIVE) 05/19/18 15:35 Urine Glucose (UA) NEGATIVE mg/dL (NEGATIVE) 05/19/18 15:35 Urine Ketones NEGATIVE mg/dL (NEGATIVE) 05/19/18 15:35 Urine Blood NEGATIVE (NEGATIVE) 05/19/18 15:35 Urine Nitrate NEGATIVE (NEGATIVE) 05/19/18 15:35 Urine Bilirubin SMALL (NEGATIVE) H 05/19/18 15:35 Urine Urobilinogen 2.0 E.U./dL (0.2 - 1.0) 05/19/18 15:35 Ur Leukocyte Esterase NEGATIVE (NEGATIVE) 05/19/18 15:35 Urine RBC 2-5 /hpf (0-5) H 05/19/18 15:35 Urine WBC 0-2 /hpf (0-5) 05/19/18 15:35 Ur Epithelial Cells FEW /lpf (FEW) 05/19/18 15:35 Urine Bacteria 1+ /hpf (NONE SEEN) H 05/19/18 15:35 Fine Granular Casts 0-2 /lpf (NONE SEEN) H 05/19/18 15:35 Urine Mucus FEW /lpf (FEW) 05/19/18 15:35 Vancomycin Trough 12.3 ug/mL (5-10) H 05/22/18 07:30 Urine Opiates Screen NEGATIVE (NEGATIVE) 05/19/18 15:35 Urine Methadone Screen NEGATIVE (NEGATIVE) 05/19/18 15:35 Ur Barbiturates Screen NEGATIVE (NEGATIVE) 05/19/18 15:35 Ur Tricyclics Screen NEGATIVE (NEGATIVE) 05/19/18 15:35 Ur Phencyclidine Scrn NEGATIVE (NEGATIVE) 05/19/18 15:35 Amphetamines Screen POSITIVE (NEGATIVE) H 05/19/18 15:35 U Methamphetamines Scrn POSITIVE (NEGATIVE) H 05/19/18 15:35 U Benzodiazepines Scrn NEGATIVE (NEGATIVE) 05/19/18 15:35 U Cocaine Metab Screen NEGATIVE (NEGATIVE) 05/19/18 15:35 U Cannabinoids Screen NEGATIVE (NEGATIVE) 05/19/18 15:35 TB (QFT) Gold In Tube Negative (Negative) 05/19/18 19:10 TB Test (QFT) Mitogen 6.66 IU/mL 05/19/18 19:10 TB Test (QFT) Antigen 0.02 IU/mL 05/19/18 19:10 TB Test Antigen - Nil <0.00 IU/mL 05/19/18 19:10 TB Test TB - Nil 0.03 IU/mL 05/19/18 19:10 TB Test (QFT) Interp 05/19/18 19:10 - Physical Exam Vitals and I&O: Vital Signs Temp 97.6 F 05/22/18 20:00 Pulse 86 05/22/18 20:00 Resp 18 05/22/18 20:00 BP 120/77 05/22/18 20:00 Pulse Ox 93 05/22/18 20:00 Intake & Output 05/22/18 05/22/18 05/23/18 06:59 18:59 06:59 Intake Total 600 2350 50 Output Total 400 520 Balance 200 1830 50 Weight (lbs) 90.718 kg 92.76 kg Intake: Intake, IV Amount 600 550 50 Piperacillin Sodium/ 100 50 50 Tazobact 3.375 gm In Sodium Chloride 0.9% 50 ml @ 100 mls/hr IV Q6HR [facility] Rx#:[id number] Vancomycin HCl 1.5 gm In 500 500 Sodium Chloride 0.9% 500 ml @ 250 mls/hr IV Q12H [facility] Rx#:[id number] Oral 1800 Output: Urine 400 520 Other: # Voids 1 # Bowel Movements 1 Weight Source Bedscale Bedscale Active Medications: Current Medications Albuterol/Ipratropium (Duoneb Neb) 3 ml HHN Q4HRT [facility] Stop: 07/18/18 10:59 Last Admin: 05/22/18 18:51 Dose: 3 ml Enoxaparin Sodium (Lovenox) 40 mg SUBQ DAILY [facility] Stop: 07/18/18 13:14 Last Admin: 05/22/18 09:00 Dose: Not Given Norepinephrine Bitartrate 4 mg (/ Dextrose) 254 mls @ 0 mls/hr IV TITR PRN; Protocol PRN Reason: BP MAINTENANCE (PER PROTOCOL) Stop: 07/18/18 13:08 Last Titration: 05/20/18 11:30 Dose: Infused Levofloxacin (Levaquin Pb) 750 mg in 150 mls @ 100 mls/hr IV Q24HR [facility] Stop: 07/18/18 13:29 Last Admin: 05/22/18 12:31 Dose: 100 mls/hr Piperacillin Sod/Tazobactam (Sod 3.375 gm/ Sodium Chloride) 50 mls @ 100 mls/ hr IV Q6HR [facility] Stop: 07/18/18 17:59 Last Infusion: 05/22/18 21:16 Dose: Infused Vancomycin HCl 1.5 gm/ Sodium (Chloride) 500 mls @ 250 mls/hr IV Q12H [facility] Stop: 07/20/18 08:59 Last Admin: 05/22/18 21:43 Dose: 250 mls/hr Ketorolac Tromethamine (Toradol) 50 mg IVP Q4HR PRN PRN Reason: Pain Stop: 07/18/18 13:12 Last Admin: 05/20/18 21:06 Dose: 50 mg Methylprednisolone Sodium Succinate (Solu-Medrol) 40 mg IVP Q8HR [facility] Stop: 07/18/18 20:59 Last Admin: 05/22/18 21:43 Dose: 40 mg Miscellaneous (Vancomycin Iv Per Pharmacy) 1 ea MC PRN [facility] Stop: 07/18/18 18:14 Ondansetron HCl (Zofran) 4 mg IV Q4H PRN PRN Reason: Nausea / Vomiting Stop: 07/20/18 02:03 Last Admin: 05/21/18 02:09 Dose: 4 mg General: alert HEENT: NC/AT, PERRLA, EOMI, anicteric sclerae, throat clear Neck: Supple, No JVD, No thyromegaly, +2 carotid pulse wo bruit, No LAD Lungs: congested, ronchi Cardiovascular: Normal S1, Normal S2 Abdomen: non-tender, non-distended Extremities: clear Neurological: no change Internal Medicine Assmt/Plan - Assessment Assessment: 1.RT SIDE PNEUMONIA. 2.SEPSIS - Plan Plan: CONTINUE ON CURRENT MEDICATION AND DIET. Nutritional Asmnt/Malnutr-PDOC - Dietary Evaluation Malnutrition Findings (Please click <Entered> for more info): Nutritional Asmnt/Malnutrition Start: 05/20/18 15: 26 Text: Status: Complete Freq: Protocol: Document 05/20/18 15:26 ELEONORA (Rec: 05/20/18 15:50 LANA PISANO-FN) Nutritional Asmnt/Malnutrition Patient General Information Diagnosis Sepsis, pneumonia Pertinent Medical Hx/Surgical Hx Inguinal hernia repair, appendectomy [facility]ive [facility]. RN reported pt ate very well. Per EMR, PO intake 100% of breakfast today. Pt was on levophed and weaned off in the afternoon. Current Diet Order/ Nutrition Support Cardiac Pertinent Medications levaquin, piperacillin, levophed Pertinent Labs 05/19: Na 130, BUN 27, Cr 1.4, Glucose 121 Lactic acid 2.46, 2.44 05/20: Na 134, BUN 36, Cr 1.5, Glucose 192 Nutritional Hx/Data Height 1.88 m Height (Calculated Centimeters) 188.0 Current Weight (lbs) 90.718 kg Weight (Calculated Kilograms) 90.7 Weight (Calculated Grams) 09470.5 [place] Body Weight 190 Body Mass Index (BMI) 25.7 GI Symptoms GI Symptoms None Last BM none Difficult in: None Skin Integrity/Comment: intact Current %PO Good (75-100%) Estimated Nutritional Goals BEE in Kcals: Using Current wt Calories/Kcals/Kg 25-30 Kcals Calculated 1107-2098 Protein: Using Current wt Protein g/k-1.2 monitor renal labs Protein Calculated 91-109 Fluid: ml 2275-2730ml (1ml/kcal) Nutritional Problem 2. Problem Problem increased nutrition needs ( calorie and protein) Etiology increased metabolic demand Signs/Symptoms: dx of sepsis and PNA 1. Problem Problem altered nutrition related labs Etiology electrolytes imbalance, possible renal dysfunction and endocrine dysfunction Signs/Symptoms: Na 130-134, BUN 27-36, Cr 1.4- 1.5, glucose 121-192 Malnutrition Alert Is there a minimum of two criteria No selected? Query Text:Check all the applicable criteria. A minimum of two criteria are recommended for diagnosis of either severe or non-severe malnutrition. Malnutrition Related to Morbid Obesity Malnutrition related to morbid obesity No Intervention/Recommendation Comments 1. Continue with current diet as ordered. Consider adding CCHO diet if glucose continue high. 2. Monitor PO intake, wt, labs and skin integrity 3. F/U as high risk in 2-3 days, 05/22-05/23 Expected Outcomes/Goals Expected Outcomes/Goals 1. PO intake to meet at least 75% of nutritional needs. 2. Wt stability, skin to remain intact, labs to approach WNL.
--- NOTE | 2018-05-23 | Progress Notes ---
DATE: 05/22/2018 PROBLEM LIST: 1. Chronic obstructive pulmonary disease. 2. Possibly infiltrate, possibly tuberculosis. SYMPTOMS: Nil, offers no specific new symptomatology. Breathing is okay. Coughing is much better than what it has been otherwise unremarkable. PHYSICAL EXAMINATION: VITAL SIGNS: The patient's recorded vital signs, temperature is 97.3, respirations 18, saturation is 97% on room air. NECK: Veins not visualized. Good bilateral carotid upstroke. CHEST: Shows occasional rhonchi with diminished air entry. The patient's chest x-ray yesterday shows no extensive changes in the right upper hemithorax. ASSESSMENT: The patient is clinically stable, unchanged improving. Awaiting for final AFB stain and continue other respiratory care underlying for chronic obstructive pulmonary disease, etc. and go from there. JOB# [id number]
[2018-05-23] MEDS: Albuterol/Ipratropium Neb 3 ML AERS HHN SCH ×6 (03:27→23:03)
[2018-05-23] MEDS: methylPREDNISolone SS 40 mg Vial IVP SCH ×3 (05:45→20:58)
[2018-05-23] MEDS: Vancomycin HCl 1.5 GM in Sodium Chloride 0.9% 500 ML IV SCH ×2 (09:39→20:57)
[2018-05-23] MEDS: Enoxaparin 40 mg/0.4 mL 0.4mL Syr SUBQ SCH (09:43)
[2018-05-23 14:21] LABS: ANTI-NUCLEAR AB SCREEN Negative
[2018-05-23] MEDS: Levofloxacin 750mg/150mL 750 MG/150 ML BAG IV SCH (14:43)
--- NOTE | 2018-05-23 21:39 | Internal Medicine Prog Note ---
Internal Medicine Subjective - Subjective Service Date: 05/23/18 Patient seen and examined:: with staff (HE FEELS BETTER) Patient is:: awake, verbal, in bed, talking Per staff patient has:: no adverse event Internal Medicine Objective - Results Result Diagrams: 05/20/18 04:30 05/22/18 07:30 Recent Labs: Laboratory Last Values WBC 7.6 Th/cmm (4.8-10.8) 05/20/18 04:30 RBC 4.78 Mil/cmm (4.30-5.70) 05/20/18 04:30 Hgb 14.3 gm/dL (12-16) 05/20/18 04:30 Hct 43.0 % (41.0-60) 05/20/18 04:30 MCV 89.8 fl (80-99) 05/20/18 04:30 MCH 29.9 pg (26.0-30.0) 05/20/18 04:30 MCHC Differential 33.4 pg (28.0-36.0) 05/20/18 04:30 RDW 13.3 % (11.5-20.0) 05/20/18 04:30 Plt Count 157 Th/cmm (150-400) 05/20/18 04:30 MPV 8.3 fl 05/20/18 04:30 Add Manual Diff YES 05/20/18 04:30 Band Neutrophils % 10 % (0-10) 05/20/18 04:30 Neutrophils (Manual) 73 % (40-80) 05/20/18 04:30 Lymphocytes 11 % (20-50) L 05/20/18 04:30 Monocytes 6 % (2-10) 05/20/18 04:30 Eosinophils 0 % (0-5) 05/19/18 07:30 Basophils 0 % (0-3) 05/19/18 07:30 PT 12.7 SECONDS (9.5-11.5) H 05/19/18 07:30 INR 1.21 (0.5-1.4) 05/19/18 07:30 PTT (Actin FS) 30.5 SECONDS (26.0-38.0) 05/19/18 07:30 D-Dimer 1640 ng/mL (100-400) H 05/19/18 07:30 Sodium 135 mEq/L (136-145) L 05/21/18 04:05 Potassium 4.1 mEq/L (3.5-5.1) 05/21/18 04:05 Chloride 102 mEq/L (98-107) 05/21/18 04:05 Carbon Dioxide 25.2 mEq/L (21.0-31.0) 05/21/18 04:05 Anion Gap 11.9 (7.0-16.0) 05/21/18 04:05 BUN 24 mg/dL (7-25) 05/22/18 07:30 Creatinine 1.0 mg/dL (0.7-1.3) 05/22/18 07:30 Est GFR ( Amer) > 60.0 ml/min (>90) 05/21/18 04:05 Est GFR (Non-Af Amer) > 60.0 ml/min 05/21/18 04:05 BUN/Creatinine Ratio 22.3 05/21/18 04:05 Glucose 267 mg/dL (70-105) H 05/21/18 04:05 Hemoglobin A1c % 5.8 % (4.0-6.0) 05/20/18 04:30 Whole Bld Lactic Acid 2.44 mmol/L (0.60-1.99) H* 05/19/18 11:00 Calcium 8.5 mg/dL (8.6-10.3) L 05/21/18 04:05 Phosphorus 2.5 mg/dL (2.5-5.0) 05/19/18 07:30 Magnesium 2.5 mg/dL (1.9-2.7) 05/20/18 04:30 Total Bilirubin 0.6 mg/dL (0.3-1.0) 05/20/18 04:30 AST 9 U/L (13-39) L 05/20/18 04:30 ALT 10 U/L (7-52) 05/20/18 04:30 Alkaline Phosphatase 37 U/L (34-104) 05/20/18 04:30 Troponin I < 0.01 ng/mL (0.01-0.05) L 05/19/18 07:30 Total Protein 5.4 gm/dL (6.0-8.3) L 05/20/18 04:30 Albumin 2.9 gm/dL (4.2-5.5) L 05/20/18 04:30 Globulin 2.5 gm/dL 05/20/18 04:30 Albumin/Globulin Ratio 1.2 (1.0-1.8) 05/20/18 04:30 Angiotensin Convert Enz 23 05/20/18 04:30 Urine Source CLEAN C 05/19/18 15:35 Urine Color YELLOW 05/19/18 15:35 Urine Clarity CLEAR (CLEAR) 05/19/18 15:35 Urine pH 5.0 (4.6 - 8.0) 05/19/18 15:35 Ur Specific [place] >= 1.030 (1.005-1.030) 05/19/18 15:35 Urine Protein TRACE mg/dL (NEGATIVE) 05/19/18 15:35 Urine Glucose (UA) NEGATIVE mg/dL (NEGATIVE) 05/19/18 15:35 Urine Ketones NEGATIVE mg/dL (NEGATIVE) 05/19/18 15:35 Urine Blood NEGATIVE (NEGATIVE) 05/19/18 15:35 Urine Nitrate NEGATIVE (NEGATIVE) 05/19/18 15:35 Urine Bilirubin SMALL (NEGATIVE) H 05/19/18 15:35 Urine Urobilinogen 2.0 E.U./dL (0.2 - 1.0) 05/19/18 15:35 Ur Leukocyte Esterase NEGATIVE (NEGATIVE) 05/19/18 15:35 Urine RBC 2-5 /hpf (0-5) H 05/19/18 15:35 Urine WBC 0-2 /hpf (0-5) 05/19/18 15:35 Ur Epithelial Cells FEW /lpf (FEW) 05/19/18 15:35 Urine Bacteria 1+ /hpf (NONE SEEN) H 05/19/18 15:35 Fine Granular Casts 0-2 /lpf (NONE SEEN) H 05/19/18 15:35 Urine Mucus FEW /lpf (FEW) 05/19/18 15:35 Vancomycin Trough 12.3 ug/mL (5-10) H 05/22/18 07:30 Urine Opiates Screen NEGATIVE (NEGATIVE) 05/19/18 15:35 Urine Methadone Screen NEGATIVE (NEGATIVE) 05/19/18 15:35 Ur Barbiturates Screen NEGATIVE (NEGATIVE) 05/19/18 15:35 Ur Tricyclics Screen NEGATIVE (NEGATIVE) 05/19/18 15:35 Ur Phencyclidine Scrn NEGATIVE (NEGATIVE) 05/19/18 15:35 Amphetamines Screen POSITIVE (NEGATIVE) H 05/19/18 15:35 U Methamphetamines Scrn POSITIVE (NEGATIVE) H 05/19/18 15:35 U Benzodiazepines Scrn NEGATIVE (NEGATIVE) 05/19/18 15:35 U Cocaine Metab Screen NEGATIVE (NEGATIVE) 05/19/18 15:35 U Cannabinoids Screen NEGATIVE (NEGATIVE) 05/19/18 15:35 [place] Screen Negative 05/20/18 04:30 Coccidioides Ab SEE REF. LAB REPORT 05/20/18 04:30 Histoplasma Ab Imm Diff SEE REF. LAB REPORT 05/20/18 04:30 L.pneumophila Antigen Negative (Negative) 05/20/18 04:30 Mycoplasma pneumon IgG 1457 U/mL (0-99) H 05/20/18 04:30 Mycoplasma pneumon IgM <770 U/mL (0-769) 05/20/18 04:30 TB (QFT) Gold In Tube Negative (Negative) 05/19/18 19:10 TB Test (QFT) Mitogen 6.66 IU/mL 05/19/18 19:10 TB Test (QFT) Antigen 0.02 IU/mL 05/19/18 19:10 TB Test Antigen - Nil <0.00 IU/mL 05/19/18 19:10 TB Test TB - Nil 0.03 IU/mL 05/19/18 19:10 TB Test (QFT) Interp 05/19/18 19:10 - Physical Exam Vitals and I&O: Vital Signs Temp 97.3 F 05/23/18 16:45 Pulse 62 05/23/18 19:55 Resp 18 05/23/18 19:55 BP 108/57 05/23/18 16:45 Pulse Ox 98 05/23/18 19:55 Intake & Output 05/23/18 05/23/18 05/24/18 06:59 18:59 06:59 Intake Total 890 750 Output Total 600 Balance 290 750 Weight (lbs) 93.44 kg Intake: Intake, IV Amount 650 750 Levofloxacin 750mg/150mL 150 750 mg In 150 ml @ 100 mls/hr IV Q24HR [facility] Rx#: [id number] Piperacillin Sodium/ 150 100 Tazobact 3.375 gm In Sodium Chloride 0.9% 50 ml @ 100 mls/hr IV Q6HR [facility] Rx#:[id number] Vancomycin HCl 1.5 gm In 500 500 Sodium Chloride 0.9% 500 ml @ 250 mls/hr IV Q12H [facility] Rx#:[id number] Oral 240 Output: Urine 600 Other: # Bowel Movements 1 Stool Characteristics Formed Weight Source Bedscale Active Medications: Current Medications Albuterol/Ipratropium (Duoneb Neb) 3 ml HHN Q4HRT [facility] Stop: 07/18/18 10:59 Last Admin: 05/23/18 19:55 Dose: 3 ml Enoxaparin Sodium (Lovenox) 40 mg SUBQ DAILY [facility] Stop: 07/18/18 13:14 Last Admin: 05/23/18 09:43 Dose: Not Given Norepinephrine Bitartrate 4 mg (/ Dextrose) 254 mls @ 0 mls/hr IV TITR PRN; Protocol PRN Reason: BP MAINTENANCE (PER PROTOCOL) Stop: 07/18/18 13:08 Last Titration: 05/20/18 11:30 Dose: Infused Levofloxacin (Levaquin Pb) 750 mg in 150 mls @ 100 mls/hr IV Q24HR [facility] Stop: 07/18/18 13:29 Last Infusion: 05/23/18 16:20 Dose: Infused Piperacillin Sod/Tazobactam (Sod 3.375 gm/ Sodium Chloride) 50 mls @ 100 mls/ hr IV Q6HR [facility] Stop: 07/18/18 17:59 Last Infusion: 05/23/18 18:28 Dose: Infused Vancomycin HCl 1.5 gm/ Sodium (Chloride) 500 mls @ 250 mls/hr IV Q12H [facility] Stop: 07/20/18 08:59 Last Admin: 05/23/18 20:57 Dose: 250 mls/hr Ketorolac Tromethamine (Toradol) 50 mg IVP Q4HR PRN PRN Reason: Pain Stop: 07/18/18 13:12 Last Admin: 05/23/18 13:20 Dose: 50 mg Methylprednisolone Sodium Succinate (Solu-Medrol) 40 mg IVP Q8HR [facility] Stop: 07/18/18 20:59 Last Admin: 05/23/18 20:58 Dose: 40 mg Miscellaneous (Vancomycin Iv Per Pharmacy) 1 ea MC PRN [facility] Stop: 07/18/18 18:14 Ondansetron HCl (Zofran) 4 mg IV Q4H PRN PRN Reason: Nausea / Vomiting Stop: 07/20/18 02:03 Last Admin: 05/21/18 02:09 Dose: 4 mg General: alert HEENT: NC/AT, PERRLA, EOMI, anicteric sclerae, throat clear Neck: Supple, No JVD, No thyromegaly, +2 carotid pulse wo bruit, No LAD Lungs: congested, ronchi Cardiovascular: Normal S1, Normal S2 Abdomen: non-tender, non-distended Extremities: clear Neurological: no change Internal Medicine Assmt/Plan - Assessment Assessment: 1.RT SIDE PNEUMONIA. 2.SEPSIS - Plan Plan: CONTINUE ON CURRENT MEDICATION AND DIET. Nutritional Asmnt/Malnutr-PDOC - Dietary Evaluation Malnutrition Findings (Please click <Entered> for more info): Nutritional Asmnt/Malnutrition Start: 05/20/18 15: 26 Text: Status: Complete Freq: Protocol: Document 05/20/18 15:26 LCHARJITG (Rec: 05/20/18 15:50 HARJIT [email or web address]) Nutritional Asmnt/Malnutrition Patient General Information Diagnosis Sepsis, pneumonia Pertinent Medical Hx/Surgical Hx Inguinal hernia repair, appendectomy Subjective Information [facility] d/t possible TB. RN reported pt ate very well. Per EMR, PO intake 100% of breakfast today. Pt was on levophed and weaned off in the afternoon. Current Diet Order/ Nutrition Support Cardiac Pertinent Medications levaquin, piperacillin, levophed Pertinent Labs 05/19: Na 130, BUN 27, Cr 1.4, Glucose 121 Lactic acid 2.46, 2.44 05/20: Na 134, BUN 36, Cr 1.5, Glucose 192 Nutritional Hx/Data Height 1.88 m Height (Calculated Centimeters) 188.0 Current Weight (lbs) 90.718 kg Weight (Calculated Kilograms) 90.7 Weight (Calculated Grams) 25144.5 [place] Body Weight 190 Body Mass Index (BMI) 25.7 GI Symptoms GI Symptoms None Last BM none Difficult in: None Skin Integrity/Comment: intact Current %PO Good (75-100%) Estimated Nutritional Goals BEE in Kcals: Using Current wt Calories/Kcals/Kg 25-30 Kcals Calculated 6539-1048 Protein: Using Current wt Protein g/k-1.2 monitor renal labs Protein Calculated 91-109 Fluid: ml 2275-2730ml (1ml/kcal) Nutritional Problem 2. Problem Problem increased nutrition needs ( calorie and protein) Etiology increased metabolic demand Signs/Symptoms: dx of sepsis and PNA 1. Problem Problem altered nutrition related labs Etiology electrolytes imbalance, possible renal dysfunction and endocrine dysfunction Signs/Symptoms: Na 130-134, BUN 27-36, Cr 1.4- 1.5, glucose 121-192 Malnutrition Alert Is there a minimum of two criteria No selected? Query Text:Check all the applicable criteria. A minimum of two criteria are recommended for diagnosis of either severe or non-severe malnutrition. Malnutrition Related to Morbid Obesity Malnutrition related to morbid obesity No Intervention/Recommendation Comments 1. Continue with current diet as ordered. Consider adding CCHO diet if glucose continue high. 2. Monitor PO intake, wt, labs and skin integrity 3. F/U as high risk in 2-3 days, 05/22-05/23 Expected Outcomes/Goals Expected Outcomes/Goals 1. PO intake to meet at least 75% of nutritional needs. 2. Wt stability, skin to remain intact, labs to approach WNL.
--- NOTE | 2018-05-23 22:38 | Progress Notes ---
DATE: 05/23/2018 PULMONARY PROGRESS NOTE PROBLEMS: 1. Right upper lobe abnormal chest x-ray. 2. Possibly tuberculosis, doubt it. 3. Underlying chronic obstructive pulmonary disease. SYMPTOMS: Nil. Says he coughed too much yesterday, has some muscle spasm on the right side, but otherwise no specific new symptoms. He claims to be given all of these samples as needed for checking out acid fast. PHYSICAL EXAMINATION: GENERAL: The patient is not in any distress. VITAL SIGNS: Temperature is 98.3, blood pressure 150/60, saturation 94-97 on room air. ENT: Shows no new changes. CHEST: Shows slightly diminished air entry at the bases, otherwise unremarkable. HEART: Regular. ABDOMEN: Soft, nontender. LABORATORY DATA: Acid fast stain is still finally pending. PLANS AND SUGGESTIONS: We will continue current treatment, monitoring. Await for final three results for acid fast stain and go from there. JOB# [id number]
[2018-05-24] MEDS: Albuterol/Ipratropium Neb 3 ML AERS HHN SCH ×6 (03:29→22:38)
[2018-05-24] MEDS: methylPREDNISolone SS 40 mg Vial IVP SCH ×3 (05:45→21:24)
[2018-05-24] MEDS: Vancomycin HCl 1.5 GM in Sodium Chloride 0.9% 500 ML IV SCH ×2 (09:09→21:26)
[2018-05-24] MEDS: Enoxaparin 40 mg/0.4 mL 0.4mL Syr SUBQ SCH (09:10)
[2018-05-24] MEDS: Levofloxacin 750mg/150mL 750 MG/150 ML BAG IV SCH (14:59)
--- NOTE | 2018-05-24 19:13 | Internal Medicine Prog Note ---
Internal Medicine Subjective - Subjective Service Date: 05/24/18 Patient seen and examined:: without staff (HE FEELS WELL) Patient is:: awake, verbal, in bed, talking Per staff patient has:: no adverse event Internal Medicine Objective - Results Result Diagrams: 05/20/18 04:30 05/22/18 07:30 Recent Labs: Laboratory Last Values WBC 7.6 Th/cmm (4.8-10.8) 05/20/18 04:30 RBC 4.78 Mil/cmm (4.30-5.70) 05/20/18 04:30 Hgb 14.3 gm/dL (12-16) 05/20/18 04:30 Hct 43.0 % (41.0-60) 05/20/18 04:30 MCV 89.8 fl (80-99) 05/20/18 04:30 MCH 29.9 pg (26.0-30.0) 05/20/18 04:30 MCHC Differential 33.4 pg (28.0-36.0) 05/20/18 04:30 RDW 13.3 % (11.5-20.0) 05/20/18 04:30 Plt Count 157 Th/cmm (150-400) 05/20/18 04:30 MPV 8.3 fl 05/20/18 04:30 Add Manual Diff YES 05/20/18 04:30 Band Neutrophils % 10 % (0-10) 05/20/18 04:30 Neutrophils (Manual) 73 % (40-80) 05/20/18 04:30 Lymphocytes 11 % (20-50) L 05/20/18 04:30 Monocytes 6 % (2-10) 05/20/18 04:30 Eosinophils 0 % (0-5) 05/19/18 07:30 Basophils 0 % (0-3) 05/19/18 07:30 PT 12.7 SECONDS (9.5-11.5) H 05/19/18 07:30 INR 1.21 (0.5-1.4) 05/19/18 07:30 PTT (Actin FS) 30.5 SECONDS (26.0-38.0) 05/19/18 07:30 D-Dimer 1640 ng/mL (100-400) H 05/19/18 07:30 Sodium 135 mEq/L (136-145) L 05/21/18 04:05 Potassium 4.1 mEq/L (3.5-5.1) 05/21/18 04:05 Chloride 102 mEq/L (98-107) 05/21/18 04:05 Carbon Dioxide 25.2 mEq/L (21.0-31.0) 05/21/18 04:05 Anion Gap 11.9 (7.0-16.0) 05/21/18 04:05 BUN 24 mg/dL (7-25) 05/22/18 07:30 Creatinine 1.0 mg/dL (0.7-1.3) 05/22/18 07:30 Est GFR ( Amer) > 60.0 ml/min (>90) 05/21/18 04:05 Est GFR (Non-Af Amer) > 60.0 ml/min 05/21/18 04:05 BUN/Creatinine Ratio 22.3 05/21/18 04:05 Glucose 267 mg/dL (70-105) H 05/21/18 04:05 Hemoglobin A1c % 5.8 % (4.0-6.0) 05/20/18 04:30 Whole Bld Lactic Acid 2.44 mmol/L (0.60-1.99) H* 05/19/18 11:00 Calcium 8.5 mg/dL (8.6-10.3) L 05/21/18 04:05 Phosphorus 2.5 mg/dL (2.5-5.0) 05/19/18 07:30 Magnesium 2.5 mg/dL (1.9-2.7) 05/20/18 04:30 Total Bilirubin 0.6 mg/dL (0.3-1.0) 05/20/18 04:30 AST 9 U/L (13-39) L 05/20/18 04:30 ALT 10 U/L (7-52) 05/20/18 04:30 Alkaline Phosphatase 37 U/L (34-104) 05/20/18 04:30 Troponin I < 0.01 ng/mL (0.01-0.05) L 05/19/18 07:30 Total Protein 5.4 gm/dL (6.0-8.3) L 05/20/18 04:30 Albumin 2.9 gm/dL (4.2-5.5) L 05/20/18 04:30 Globulin 2.5 gm/dL 05/20/18 04:30 Albumin/Globulin Ratio 1.2 (1.0-1.8) 05/20/18 04:30 Angiotensin Convert Enz 23 05/20/18 04:30 Urine Source CLEAN C 05/19/18 15:35 Urine Color YELLOW 05/19/18 15:35 Urine Clarity CLEAR (CLEAR) 05/19/18 15:35 Urine pH 5.0 (4.6 - 8.0) 05/19/18 15:35 Ur Specific [place] >= 1.030 (1.005-1.030) 05/19/18 15:35 Urine Protein TRACE mg/dL (NEGATIVE) 05/19/18 15:35 Urine Glucose (UA) NEGATIVE mg/dL (NEGATIVE) 05/19/18 15:35 Urine Ketones NEGATIVE mg/dL (NEGATIVE) 05/19/18 15:35 Urine Blood NEGATIVE (NEGATIVE) 05/19/18 15:35 Urine Nitrate NEGATIVE (NEGATIVE) 05/19/18 15:35 Urine Bilirubin SMALL (NEGATIVE) H 05/19/18 15:35 Urine Urobilinogen 2.0 E.U./dL (0.2 - 1.0) 05/19/18 15:35 Ur Leukocyte Esterase NEGATIVE (NEGATIVE) 05/19/18 15:35 Urine RBC 2-5 /hpf (0-5) H 05/19/18 15:35 Urine WBC 0-2 /hpf (0-5) 05/19/18 15:35 Ur Epithelial Cells FEW /lpf (FEW) 05/19/18 15:35 Urine Bacteria 1+ /hpf (NONE SEEN) H 05/19/18 15:35 Fine Granular Casts 0-2 /lpf (NONE SEEN) H 05/19/18 15:35 Urine Mucus FEW /lpf (FEW) 05/19/18 15:35 Vancomycin Trough 12.3 ug/mL (5-10) H 05/22/18 07:30 Urine Opiates Screen NEGATIVE (NEGATIVE) 05/19/18 15:35 Urine Methadone Screen NEGATIVE (NEGATIVE) 05/19/18 15:35 Ur Barbiturates Screen NEGATIVE (NEGATIVE) 05/19/18 15:35 Ur Tricyclics Screen NEGATIVE (NEGATIVE) 05/19/18 15:35 Ur Phencyclidine Scrn NEGATIVE (NEGATIVE) 05/19/18 15:35 Amphetamines Screen POSITIVE (NEGATIVE) H 05/19/18 15:35 U Methamphetamines Scrn POSITIVE (NEGATIVE) H 05/19/18 15:35 U Benzodiazepines Scrn NEGATIVE (NEGATIVE) 05/19/18 15:35 U Cocaine Metab Screen NEGATIVE (NEGATIVE) 05/19/18 15:35 U Cannabinoids Screen NEGATIVE (NEGATIVE) 05/19/18 15:35 [place] Screen Negative 05/20/18 04:30 Coccidioides Ab SEE REF. LAB REPORT 05/20/18 04:30 Histoplasma Ab Imm Diff SEE REF. LAB REPORT 05/20/18 04:30 L.pneumophila Antigen Negative (Negative) 05/20/18 04:30 Mycoplasma pneumon IgG 1457 U/mL (0-99) H 05/20/18 04:30 Mycoplasma pneumon IgM <770 U/mL (0-769) 05/20/18 04:30 TB (QFT) Gold In Tube Negative (Negative) 05/19/18 19:10 TB Test (QFT) Mitogen 6.66 IU/mL 05/19/18 19:10 TB Test (QFT) Antigen 0.02 IU/mL 05/19/18 19:10 TB Test Antigen - Nil <0.00 IU/mL 05/19/18 19:10 TB Test TB - Nil 0.03 IU/mL 05/19/18 19:10 TB Test (QFT) Interp 05/19/18 19:10 - Physical Exam Vitals and I&O: Vital Signs Temp 97.4 F 05/24/18 12:00 Pulse 83 05/24/18 19:05 Resp 18 05/24/18 19:05 BP 118/61 05/24/18 12:00 Pulse Ox 97 05/24/18 19:05 Intake & Output 05/24/18 05/24/18 05/25/18 06:59 18:59 06:59 Intake Total 600 50 Output Total 1200 Balance 600 -1150 Weight (lbs) 92.986 kg Intake: Intake, IV Amount 600 50 Piperacillin Sodium/ 100 50 Tazobact 3.375 gm In Sodium Chloride 0.9% 50 ml @ 100 mls/hr IV Q6HR [facility] Rx#:[id number] Vancomycin HCl 1.5 gm In 500 Sodium Chloride 0.9% 500 ml @ 250 mls/hr IV Q12H [facility] Rx#:[id number] Output: Urine 1200 Other: # Voids 3 Weight Source Patient stated Active Medications: Current Medications Albuterol/Ipratropium (Duoneb Neb) 3 ml HHN Q4HRT [facility] Stop: 07/18/18 10:59 Last Admin: 05/24/18 19:01 Dose: 3 ml Enoxaparin Sodium (Lovenox) 40 mg SUBQ DAILY [facility] Stop: 07/18/18 13:14 Last Admin: 05/24/18 09:10 Dose: 40 mg Norepinephrine Bitartrate 4 mg (/ Dextrose) 254 mls @ 0 mls/hr IV TITR PRN; Protocol PRN Reason: BP MAINTENANCE (PER PROTOCOL) Stop: 07/18/18 13:08 Last Titration: 05/20/18 11:30 Dose: Infused Levofloxacin (Levaquin Pb) 750 mg in 150 mls @ 100 mls/hr IV Q24HR [facility] Stop: 07/18/18 13:29 Last Admin: 05/24/18 14:59 Dose: 100 mls/hr Piperacillin Sod/Tazobactam (Sod 3.375 gm/ Sodium Chloride) 50 mls @ 100 mls/ hr IV Q6HR [facility] Stop: 07/18/18 17:59 Last Admin: 05/24/18 18:16 Dose: 100 mls/hr Vancomycin HCl 1.5 gm/ Sodium (Chloride) 500 mls @ 250 mls/hr IV Q12H [facility] Stop: 07/20/18 08:59 Last Admin: 05/24/18 09:09 Dose: 250 mls/hr Methylprednisolone Sodium Succinate (Solu-Medrol) 40 mg IVP Q8HR [facility] Stop: 07/18/18 20:59 Last Admin: 05/24/18 13:14 Dose: 40 mg Miscellaneous (Vancomycin Iv Per Pharmacy) 1 ea MC PRN [facility] Stop: 07/18/18 18:14 Ondansetron HCl (Zofran) 4 mg IV Q4H PRN PRN Reason: Nausea / Vomiting Stop: 07/20/18 02:03 Last Admin: 05/21/18 02:09 Dose: 4 mg General: alert HEENT: NC/AT, PERRLA, EOMI, anicteric sclerae, throat clear Neck: Supple, No JVD, No thyromegaly, +2 carotid pulse wo bruit, No LAD Lungs: congested, ronchi Cardiovascular: Normal S1, Normal S2 Abdomen: non-tender, non-distended Extremities: clear Neurological: no change Internal Medicine Assmt/Plan - Assessment Assessment: 1.RT SIDE PNEUMONIA. 2.SEPSIS - Plan Plan: CONTINUE ON CURRENT MEDICATION AND DIET. Nutritional Asmnt/Malnutr-PDOC - Dietary Evaluation Malnutrition Findings (Please click <Entered> for more info): Nutritional Asmnt/Malnutrition Start: 05/20/18 15: 26 Text: Status: Complete Freq: Protocol: Document 05/20/18 15:26 LCHENG (Rec: 05/20/18 15:50 LCHENG [email or web address]) Nutritional Asmnt/Malnutrition Patient General Information Diagnosis Sepsis, pneumonia Pertinent Medical Hx/Surgical Hx Inguinal hernia repair, appendectomy Subjective Information Pt seen in [facility] isolation room d/t possible TB. RN reported pt ate very well. Per EMR, PO intake 100% of breakfast today. Pt was on levophed and weaned off in the afternoon. Current Diet Order/ Nutrition Support Cardiac Pertinent Medications levaquin, piperacillin, levophed Pertinent Labs 05/19: Na 130, BUN 27, Cr 1.4, Glucose 121 Lactic acid 2.46, 2.44 05/20: Na 134, BUN 36, Cr 1.5, Glucose 192 Nutritional Hx/Data Height 1.88 m Height (Calculated Centimeters) 188.0 Current Weight (lbs) 90.718 kg Weight (Calculated Kilograms) 90.7 Weight (Calculated Grams) 08746.5 [place] Body Weight 190 Body Mass Index (BMI) 25.7 GI Symptoms GI Symptoms None Last BM none Difficult in: None Skin Integrity/Comment: intact Current %PO Good (75-100%) Estimated Nutritional Goals BEE in Kcals: Using Current wt Calories/Kcals/Kg 25-30 Kcals Calculated 5873-3713 Protein: Using Current wt Protein g/k-1.2 monitor renal labs Protein Calculated 91-109 Fluid: ml 2275-2730ml (1ml/kcal) Nutritional Problem 2. Problem Problem increased nutrition needs ( calorie and protein) Etiology increased metabolic demand Signs/Symptoms: dx of sepsis and PNA 1. Problem Problem altered nutrition related labs Etiology electrolytes imbalance, possible renal dysfunction and endocrine dysfunction Signs/Symptoms: Na 130-134, BUN 27-36, Cr 1.4- 1.5, glucose 121-192 Malnutrition Alert Is there a minimum of two criteria No selected? Query Text:Check all the applicable criteria. A minimum of two criteria are recommended for diagnosis of either severe or non-severe malnutrition. Malnutrition Related to Morbid Obesity Malnutrition related to morbid obesity No Intervention/Recommendation Comments 1. Continue with current diet as ordered. Consider adding CCHO diet if glucose continue high. 2. Monitor PO intake, wt, labs and skin integrity 3. F/U as high risk in 2-3 days, 05/22-05/23 Expected Outcomes/Goals Expected Outcomes/Goals 1. PO intake to meet at least 75% of nutritional needs. 2. Wt stability, skin to remain intact, labs to approach WNL.
--- NOTE | 2018-05-25 00:36 | Progress Notes ---
DATE: 05/24/2018 PULMONARY PROGRESS NOTE PROBLEM LIST: 1. Abnormal chest x-ray. 2. Chronic obstructive pulmonary disease. 3. Waiting to rule out acid-fast. Acid-fast results are pending. SYMPTOMS: The patient is periodically coughing. No shortness of breath. No other related symptomatology. OBJECTIVE: VITAL SIGNS: T-Max 98.2, blood pressure 116/64, saturation 95% on room air. ENT: Shows no new changes. CHEST: Shows clear with diminished air entry, mostly on the right side. HEART: Regular. MICROBIOLOGY: The patient's sputum culture aspirate shows Streptococcus pneumoniae. Other acid-fast is pending. ASSESSMENT: The patient is clinically stable, possibly streptococcal tracheobronchitis, question pneumonitis. PLANS AND SUGGESTIONS: We will continue current management, IV antibiotic per ID. We will wait for acid-fast testing, etc. JOB# [id number]
[2018-05-25] MEDS: Albuterol/Ipratropium Neb 3 ML AERS HHN SCH ×4 (03:05→14:50)
[2018-05-25] MEDS: methylPREDNISolone SS 40 mg Vial IVP SCH ×2 (05:51→14:36)
[2018-05-25] MEDS: Vancomycin HCl 1.5 GM in Sodium Chloride 0.9% 500 ML IV SCH (09:58)
[2018-05-25] MEDS: Enoxaparin 40 mg/0.4 mL 0.4mL Syr SUBQ SCH (09:58)
[2018-05-25 11:12] LABS: HEMATOCRIT 42.9 % (41.0-60); HEMOGLOBIN 14.5 gm/dL (12-16); MEAN CELL VOLUME 89.1 fl (80-99); MEAN CORPUSCULAR HEMOGLOBIN 30.1 pg (26.0-30.0); MEAN CORPUSCULAR HGB CONC 33.8 pg (28.0-36.0); MEAN PLATELET VOLUME 8.2 fl; PLATELET COUNT 226 Th/cmm (150-400); RED BLOOD COUNT 4.81 Mil/cmm (4.30-5.70); RED CELL DISTRIBUTION WIDTH 13.5 % (11.5-20.0); WHITE BLOOD COUNT 13.5 Th/cmm (4.8-10.8)
[2018-05-25 11:25] LABS: ALBUMIN 2.7 gm/dL (4.2-5.5); ALKALINE PHOSPHATASE 39 U/L (34-104); ANION GAP 11.6 (7.0-16.0); BILIRUBIN,TOTAL 0.4 mg/dL (0.3-1.0); BUN - UREA NITROGEN 15 mg/dL (7-25); CALCIUM SERUM 8.5 mg/dL (8.6-10.3); CARBON DIOXIDE 25.6 mEq/L (21.0-31.0); CHLORIDE 104 mEq/L (98-107); CREATININE - SERUM 0.9 mg/dL (0.7-1.3); GFR AFRICAN-AMERICAN > 60.0 ml/min (>90); GFR NON AFRICAN-AMERICAN > 60.0 ml/min; GLUCOSE 141 mg/dL (70-105); POTASSIUM SERUM 4.2 mEq/L (3.5-5.1); SGOT 13 U/L (13-39); SGPT/ALT 20 U/L (7-52); SODIUM SERUM 137 mEq/L (136-145); TOTAL PROTEIN,SERUM 5.4 gm/dL (6.0-8.3)
[2018-05-25 12:05] LABS: ATYPICAL LYMPH 14 %; BAND NEUTROPHILE 6 % (0-10); BASOPHIL 1 % (0-3); LYMPHOCYTE 20 % (20-50); MONOCYTE 5 % (2-10); NEUTROPHILS 54 % (40-80); PLATELET ESTIMATE ADEQUATE (NORMAL)
--- NOTE | 2018-05-25 13:12 | General Progress Note ---
Subjective - Review of Systems Service Date: 05/25/18 Subjective: resting comfortably in bed eager to go home Objective - Results Result Diagrams: 05/25/18 08:14 05/25/18 08:14 Recent Labs: Laboratory Last Values WBC 13.5 Th/cmm (4.8-10.8) H 05/25/18 08:14 RBC 4.81 Mil/cmm (4.30-5.70) 05/25/18 08:14 Hgb 14.5 gm/dL (12-16) 05/25/18 08:14 Hct 42.9 % (41.0-60) 05/25/18 08:14 MCV 89.1 fl (80-99) 05/25/18 08:14 MCH 30.1 pg (26.0-30.0) H 05/25/18 08:14 MCHC Differential 33.8 pg (28.0-36.0) 05/25/18 08:14 RDW 13.5 % (11.5-20.0) 05/25/18 08:14 Plt Count 226 Th/cmm (150-400) 05/25/18 08:14 MPV 8.2 fl 05/25/18 08:14 Add Manual Diff YES 05/25/18 08:14 Band Neutrophils % 6 % (0-10) 05/25/18 08:14 Neutrophils (Manual) 54 % (40-80) 05/25/18 08:14 Lymphocytes 20 % (20-50) 05/25/18 08:14 Monocytes 5 % (2-10) 05/25/18 08:14 Eosinophils 0 % (0-5) 05/19/18 07:30 Basophils 1 % (0-3) 05/25/18 08:14 Atypical Lymphocytes 14 % 05/25/18 08:14 Platelet Estimate ADEQUATE (NORMAL) 05/25/18 08:14 PT 12.7 SECONDS (9.5-11.5) H 05/19/18 07:30 INR 1.21 (0.5-1.4) 05/19/18 07:30 PTT (Actin FS) 30.5 SECONDS (26.0-38.0) 05/19/18 07:30 D-Dimer 1640 ng/mL (100-400) H 05/19/18 07:30 Sodium 137 mEq/L (136-145) 05/25/18 08:14 Potassium 4.2 mEq/L (3.5-5.1) 05/25/18 08:14 Chloride 104 mEq/L (98-107) 05/25/18 08:14 Carbon Dioxide 25.6 mEq/L (21.0-31.0) 05/25/18 08:14 Anion Gap 11.6 (7.0-16.0) 05/25/18 08:14 BUN 15 mg/dL (7-25) 05/25/18 08:14 Creatinine 0.9 mg/dL (0.7-1.3) 05/25/18 08:14 Est GFR ( Amer) > 60.0 ml/min (>90) 05/25/18 08:14 Est GFR (Non-Af Amer) > 60.0 ml/min 05/25/18 08:14 BUN/Creatinine Ratio 16.7 05/25/18 08:14 Glucose 141 mg/dL (70-105) H 05/25/18 08:14 Hemoglobin A1c % 5.8 % (4.0-6.0) 05/20/18 04:30 Whole Bld Lactic Acid 1.37 mmol/L (0.60-1.99) 05/25/18 11:05 Calcium 8.5 mg/dL (8.6-10.3) L 05/25/18 08:14 Phosphorus 2.5 mg/dL (2.5-5.0) 05/19/18 07:30 Magnesium 2.5 mg/dL (1.9-2.7) 05/20/18 04:30 Total Bilirubin 0.4 mg/dL (0.3-1.0) 05/25/18 08:14 AST 13 U/L (13-39) 05/25/18 08:14 ALT 20 U/L (7-52) 05/25/18 08:14 Alkaline Phosphatase 39 U/L (34-104) 05/25/18 08:14 Troponin I < 0.01 ng/mL (0.01-0.05) L 05/19/18 07:30 Total Protein 5.4 gm/dL (6.0-8.3) L 05/25/18 08:14 Albumin 2.7 gm/dL (4.2-5.5) L 05/25/18 08:14 Globulin 2.7 gm/dL 05/25/18 08:14 Albumin/Globulin Ratio 1.0 (1.0-1.8) 05/25/18 08:14 Angiotensin Convert Enz 23 05/20/18 04:30 Urine Source CLEAN C 05/19/18 15:35 Urine Color YELLOW 05/19/18 15:35 Urine Clarity CLEAR (CLEAR) 05/19/18 15:35 Urine pH 5.0 (4.6 - 8.0) 05/19/18 15:35 Ur Specific [place] >= 1.030 (1.005-1.030) 05/19/18 15:35 Urine Protein TRACE mg/dL (NEGATIVE) 05/19/18 15:35 Urine Glucose (UA) NEGATIVE mg/dL (NEGATIVE) 05/19/18 15:35 Urine Ketones NEGATIVE mg/dL (NEGATIVE) 05/19/18 15:35 Urine Blood NEGATIVE (NEGATIVE) 05/19/18 15:35 Urine Nitrate NEGATIVE (NEGATIVE) 05/19/18 15:35 Urine Bilirubin SMALL (NEGATIVE) H 05/19/18 15:35 Urine Urobilinogen 2.0 E.U./dL (0.2 - 1.0) 05/19/18 15:35 Ur Leukocyte Esterase NEGATIVE (NEGATIVE) 05/19/18 15:35 Urine RBC 2-5 /hpf (0-5) H 05/19/18 15:35 Urine WBC 0-2 /hpf (0-5) 05/19/18 15:35 Ur Epithelial Cells FEW /lpf (FEW) 05/19/18 15:35 Urine Bacteria 1+ /hpf (NONE SEEN) H 05/19/18 15:35 Fine Granular Casts 0-2 /lpf (NONE SEEN) H 05/19/18 15:35 Urine Mucus FEW /lpf (FEW) 05/19/18 15:35 Vancomycin Trough 10.4 ug/mL (5-10) H 05/25/18 08:15 Urine Opiates Screen NEGATIVE (NEGATIVE) 05/19/18 15:35 Urine Methadone Screen NEGATIVE (NEGATIVE) 05/19/18 15:35 Ur Barbiturates Screen NEGATIVE (NEGATIVE) 05/19/18 15:35 Ur Tricyclics Screen NEGATIVE (NEGATIVE) 05/19/18 15:35 Ur Phencyclidine Scrn NEGATIVE (NEGATIVE) 05/19/18 15:35 Amphetamines Screen POSITIVE (NEGATIVE) H 05/19/18 15:35 U Methamphetamines Scrn POSITIVE (NEGATIVE) H 05/19/18 15:35 U Benzodiazepines Scrn NEGATIVE (NEGATIVE) 05/19/18 15:35 U Cocaine Metab Screen NEGATIVE (NEGATIVE) 05/19/18 15:35 U Cannabinoids Screen NEGATIVE (NEGATIVE) 05/19/18 15:35 [place] Screen Negative 05/20/18 04:30 Coccidioides Ab SEE REF. LAB REPORT 05/20/18 04:30 Histoplasma Ab Imm Diff SEE REF. LAB REPORT 05/20/18 04:30 L.pneumophila Antigen Negative (Negative) 05/20/18 04:30 Mycoplasma pneumon IgG 1457 U/mL (0-99) H 05/20/18 04:30 Mycoplasma pneumon IgM <770 U/mL (0-769) 05/20/18 04:30 TB (QFT) Gold In Tube Negative (Negative) 05/19/18 19:10 TB Test (QFT) Mitogen 6.66 IU/mL 05/19/18 19:10 TB Test (QFT) Antigen 0.02 IU/mL 05/19/18 19:10 TB Test Antigen - Nil <0.00 IU/mL 05/19/18 19:10 TB Test TB - Nil 0.03 IU/mL 05/19/18 19:10 TB Test (QFT) Interp 05/19/18 19:10 - Physical Exam Vitals and I&O: Vital Signs Temp 98.2 F 05/25/18 11:58 Pulse 76 05/25/18 11:58 Resp 20 05/25/18 11:58 BP 114/59 05/25/18 11:58 Pulse Ox 95 05/25/18 11:58 Intake & Output 05/24/18 05/25/18 05/25/18 18:59 06:59 18:59 Intake Total 600 500 Output Total 1200 Balance -600 500 Weight (lbs) 92.986 kg 92.986 kg Intake: Intake, IV Amount 600 500 Piperacillin Sodium/ 100 Tazobact 3.375 gm In Sodium Chloride 0.9% 50 ml @ 100 mls/hr IV Q6HR [facility] Rx#:[id number] Vancomycin HCl 1.5 gm In 500 500 Sodium Chloride 0.9% 500 ml @ 250 mls/hr IV Q12H [facility] Rx#:[id number] Output: Urine 1200 Other: # Voids 3 3 Weight Source Patient stated Patient stated Active Medications: Current Medications Albuterol/Ipratropium (Duoneb Neb) 3 ml HHN Q4HRT [facility] Stop: 07/18/18 10:59 Last Admin: 05/25/18 11:33 Dose: 3 ml Enoxaparin Sodium (Lovenox) 40 mg SUBQ DAILY [facility] Stop: 07/18/18 13:14 Last Admin: 05/25/18 09:58 Dose: 40 mg Levofloxacin (Levaquin Pb) 750 mg in 150 mls @ 100 mls/hr IV Q24HR [facility] Stop: 07/18/18 13:29 Last Admin: 05/24/18 14:59 Dose: 100 mls/hr Vancomycin HCl 1.5 gm/ Sodium (Chloride) 500 mls @ 250 mls/hr IV Q8H [facility] Stop: 07/24/18 16:59 Methylprednisolone Sodium Succinate (Solu-Medrol) 40 mg IVP Q8HR [facility] Stop: 07/18/18 20:59 Last Admin: 05/25/18 05:51 Dose: 40 mg Miscellaneous (Vancomycin Iv Per Pharmacy) 1 ea MC PRN [facility] Stop: 07/18/18 18:14 Ondansetron HCl (Zofran) 4 mg IV Q4H PRN PRN Reason: Nausea / Vomiting Stop: 07/20/18 02:03 Last Admin: 05/21/18 02:09 Dose: 4 mg General: Alert, Oriented x3, No acute distress HEENT: Atraumatic, PERRLA, EOMI Neck: Supple, JVD, Thyromegaly Cardiovascular: Regular rate, Normal S1, Normal S2 Lungs: Clear to auscultation Abdomen: Bowel sounds, Soft Assessment/Plan - Problem List Patient Problems: All Active Problems RIGHT SIDED CHEST PAIN WITH COUGH (Acute) - Assessment Assessment: bacterial pneumonia - Plan Plan: AFB reported nl d/w Dr Maximilian mcdonough and clinda x7 days steroid taper HFA f/u with PCP in one week Nutritional Asmnt/Malnutr-PDOC - Dietary Evaluation Malnutrition Findings (Please click <Entered> for more info): Nutritional Asmnt/Malnutrition Start: 05/20/18 15: 26 Text: Status: Complete Freq: Protocol: Document 05/20/18 15:26 LCHENG (Rec: 05/20/18 15:50 LCHENG [email or web address]) Nutritional Asmnt/Malnutrition Patient General Information Diagnosis Sepsis, pneumonia Pertinent Medical Hx/Surgical Hx Inguinal hernia repair, appendectomy Subjective Information Pt seen in [facility] isolation room d/t possible TB. RN reported pt ate very well. Per EMR, PO intake 100% of breakfast today. Pt was on levophed and weaned off in the afternoon. Current Diet Order/ Nutrition Support Cardiac Pertinent Medications levaquin, piperacillin, levophed Pertinent Labs 05/19: Na 130, BUN 27, Cr 1.4, Glucose 121 Lactic acid 2.46, 2.44 05/20: Na 134, BUN 36, Cr 1.5, Glucose 192 Nutritional Hx/Data Height 1.88 m Height (Calculated Centimeters) 188.0 Current Weight (lbs) 90.718 kg Weight (Calculated Kilograms) 90.7 Weight (Calculated Grams) 22179.5 [place] Body Weight 190 Body Mass Index (BMI) 25.7 GI Symptoms GI Symptoms None Last BM none Difficult in: None Skin Integrity/Comment: intact Current %PO Good (75-100%) Estimated Nutritional Goals BEE in Kcals: Using Current wt Calories/Kcals/Kg 25-30 Kcals Calculated 3718-8907 Protein: Using Current wt Protein g/k-1.2 monitor renal labs Protein Calculated 91-109 Fluid: ml 2275-2730ml (1ml/kcal) Nutritional Problem 2. Problem Problem increased nutrition needs ( calorie and protein) Etiology increased metabolic demand Signs/Symptoms: dx of sepsis and PNA 1. Problem Problem altered nutrition related labs Etiology electrolytes imbalance, possible renal dysfunction and endocrine dysfunction Signs/Symptoms: Na 130-134, BUN 27-36, Cr 1.4- 1.5, glucose 121-192 Malnutrition Alert Is there a minimum of two criteria No selected? Query Text:Check all the applicable criteria. A minimum of two criteria are recommended for diagnosis of either severe or non-severe malnutrition. Malnutrition Related to Morbid Obesity Malnutrition related to morbid obesity No Intervention/Recommendation Comments 1. Continue with current diet as ordered. Consider adding CCHO diet if glucose continue high. 2. Monitor PO intake, wt, labs and skin integrity 3. F/U as high risk in 2-3 days, 05/22-05/23 Expected Outcomes/Goals Expected Outcomes/Goals 1. PO intake to meet at least 75% of nutritional needs. 2. Wt stability, skin to remain intact, labs to approach WNL.
[2018-05-25] MEDS: Levofloxacin 750mg/150mL 750 MG/150 ML BAG IV SCH (14:36)
--- NOTE | 2018-05-25 16:35 | Progress Notes ---
DATE: 05/25/2018 PULMONARY PROGRESS NOTE PROBLEM LIST: 1. Abnormal chest x-ray. 2. Chronic obstructive pulmonary disease. 3. Streptococcal tracheobronchitis. SYMPTOMS: Nil. He has taken off the isolation. Denies of any coughing, wheezing or any significant shortness of breath. OBJECTIVE: VITAL SIGNS: The patient's recorded vital signs, temperature is 98.2, blood pressure is 114/59, saturation at mid 90s on room air. NECK: Veins not visualized. CHEST: Shows diminished air entry on the right upper lobe region, otherwise unremarkable. PERTINENT LABORATORY DATA: White count is 13.5, hemoglobin 14.5, electrolytes are okay and the patient clinically stable, improving. AFB negative x3. PLANS AND SUGGESTIONS: We will continue current management, it should be okay pulmonary [place] with oral antibiotic and go from there. JOB# [id number]
[2018-05-25] MEDS ORDERED: Vancomycin HCl 1.5 GM in Sodium Chloride 0.9% 500 ML IV SCH (17:00)
== END 2018-05-25 17:34 | disposition home or self-care (01) | DRG 871 ==
LOC: ER 07:15 → ICU 09:43 → TELE 05-21 20:25 → MSI 05-25 15:12
PROVIDERS: ADMIT Family Medicine; ATTEND Family Medicine
DX: A41.9 Sepsis, unspecified organism (principal); R65.21 Severe sepsis with septic shock; J15.9 Unspecified bacterial pneumonia; N17.9 Acute kidney failure, unspecified; E86.0 Dehydration; R09.02 Hypoxemia; N28.9 Disorder of kidney and ureter, unspecified; F17.210 Nicotine dependence, cigarettes, uncomplicated
CPT/HCPCS: 36415-UA; 71045-TC; 71250-TC; 80048-TC; 80053-TC; 80202-TC; 80307; 81001-TC; 82164-90; 82565-TC; 83036-90; 83605; 83735-TC; 84100-TC; 84484-TC; 84520-TC; 85007-TC; 85025-TC; 85379-TC; 85610-TC; 86038-90; 86480-90; 86635-90; 86698-90; 86738-90; 87070-90; 87116-90; 87205-90; 87206-90; 87449-90; 87899-90; 93005; 93970-TC-50; 94640; 94760; 96375; J0456; J0696; J1650; J1885; J1956; J2405; J2543; J2920; J3370; J3475; J7040; X6452; Z7610

== ENCOUNTER 2018-05-30 09:48 | Inpatient (IN) | payer MEDICAID ==
[2018-05-30] MEDS ORDERED: Albuterol/Ipratropium Neb 3 ML AERS HHN ONE (10:01)
[2018-05-30] MEDS ORDERED: Albuterol Nebulizer 2.5mg/3mL HHN ONE (10:03)
[2018-05-30] MEDS ORDERED: Ipratropium Neb 0.5 mg/2.5 mL UD HHN ONE (10:03)
--- NOTE | 2018-05-30 10:08 | ED Physician Chart ---
ED Chief Complaint/HPI - Patient Information Date Seen:: 05/30/18 Time Seen:: 09:50 Chief Complaint:: chest pain History of Present Illness:: Patient has had pleuritic right lateral chest wall pain for last 2 weeks. Pain was worse this morning. Patient was admitted here for 1 week for pneumonia and discharged 5-6 days ago. Allergies:: Allergies Allergy/AdvReac Type Severity Reaction Status Date / Time No Known Allergies Allergy Verified 05/19/18 07:23 Historian:: Patient Review:: Nurse's Note Reviewed ED Review of Systems - Review of Systems General/Constitutional: No fever, No chills, No weight loss, No weakness, No diaphoresis, No edema, No loss of appetite Skin: No skin lesions, No rash, No bruising Head: No headache, No light-headedness Eyes: No loss of vision, No pain, No diplopia ENT: No earache, No nasal drainage, No sore throat, No tinnitus Neck: No neck pain, No swelling, No thyromegaly, No stiffness, No mass noted Cardio Vascular: No chest pain, No palpitations, No PND, No orthopnea, No edema Pulmonary: Other (chest wall pain) GI: No nausea, No vomiting, No diarrhea, No pain, No melena, No hematochezia, No constipation, No hematemesis G/U: No dysuria, No frequency, No hematuria Musculoskeletal: No bone or joint pain, No back pain, No muscle pain Endocrine: No polyuria, No polydipsia Psychiatric: No prior psych history, No depression, No anxiety, No suicidal ideation Hematopoietic: No bruising, No lymphadenopathy Allergic/Immuno: No urticaria, No angioedema Neurological: No syncope, No focal symptoms, No weakness, No paresthesia, No headache, No seizure, No dizziness, No confusion, No vertigo ED Past Medical History - Past Medical History Past Medical History: No significant medical hx Family History: Diabetes [place] Social History: Smoker, No Alcohol, Other (smokes about 15 cigarettes a day) Surgical History: Appendectomy Psychiatricy History: None Medication: Reviewed Family Medical History - Family Member Sister History Unknown: Yes Father Ethnicity: Non- Living Status: Hx Family Coronary Artery Disease: Yes Hx Family Diabetes: Yes ED Physical Exam - Physical Examination General/Constitutional: Awake, Well-developed, well-nourished, Alert, No distress, GCS 15, Non-toxic appearing, Ambulatory Head: Atraumatic Eyes: Lids, conjuctiva normal, PERRL, EOMI Skin: Nl inspection, No rash, No skin lesions, No ecchymosis, Well hydrated, No lymphadenopathy ENMT: External ears, nose nl, Nasal exam nl Other ENMT comments:: 4/4 poor dental hygiene Neck: Nontender, Full ROM w/o pain, No JVD, No nuchal rigidity, No bruit, No mass, No stridor Respiratory: Nl effort/Exclusion, Clear to Auscultation, No Wheeze/Rhonchi/Rales Cardio Vascular: RRR, No murmur, gallop, rubs, NL S1 S2 GI: No tenderness/rebounding/guarding, No organomegaly, No hernia, Normal BS's, Nondistended, No mass/bruits, No McBurney tenderness : No CVA tenderness Extremities: No tenderness or effusion, Full ROM, normal strength in all extremities, No edema, Normal digits & nails Neuro/Psych: Alert/oriented, DTR's symmetric, Normal sensory exam, Normal motor strength, Judgement/insight normal, Mood normal, Normal gait, No focal deficits Misc: Normal back, No paraspinal tenderness ED Labs/Radiology/EKG Results - Lab Results Results: Laboratory Results - last 24 hr 05/30/18 05/30/18 05/30/18 10:00 10:00 10:13 WBC 10.4 RBC 4.83 Hgb 14.4 Hct 42.9 MCV 88.8 MCH 29.7 MCHC Differential 33.4 RDW 14.1 Plt Count 280 MPV 7.2 Neutrophils % 83.6 H Lymphocytes % 10.3 L Monocytes % 4.7 Eosinophils % 1.2 Basophils % 0.2 D-Dimer 1240 H Sodium 134 L Potassium 4.1 Chloride 104 Carbon Dioxide 23.0 Anion Gap 11.1 BUN 12 Creatinine 0.8 Est GFR ( Amer) > 60.0 Est GFR (Non-Af Amer) > 60.0 BUN/Creatinine Ratio 15.0 Glucose 145 H Calcium 8.4 L Troponin I < 0.01 L - EKG Interpretations Rate & Rhythm: normal sinus rhythm with a rate of 80 Roxana: normal ED Septic Shock - . Is Septic Shock (SBP<90, OR Lactate>4 mmol\L) present?: No ED Reassessment (Disposition) - Reassessment Reassessment:: Talk to Dr. Martinez and he wished the patient admitted to the doctor loans consultant. I then spoke to Dr. Santiago who will be the admitting physician Reassessment Condition:: Unchanged - Diagnosis Diagnosis:: Pulmonary emboli right lung; right apical pneumonia - Patient Disposition Admitted to:: Telemetry Spoke to:: Boubacar Santiago Admitting Medical Physician:: Boubacar Santiago Condition at Disposition:: Stable, Unchanged
[2018-05-30 10:23] LABS: % BASOPHILS 0.2 % (0.0-2.0); % EOSINOPHILS 1.2 % (0.0-5.0); % LYMPHOCYTES 10.3 % (20.0-50.0); % MONOCYTES 4.7 % (2.0-10.0); % NEUTROPHILS 83.6 % (40.0-80.0); EOSINOPHILE ABSOLUTE 0.1 Th/cmm (0.1-0.4); HEMATOCRIT 42.9 % (41.0-60); HEMOGLOBIN 14.4 gm/dL (12-16); LYMPHOCYTE ABSOLUTE 1.1 Th/cmm (1.5-3.0); MEAN CELL VOLUME 88.8 fl (80-99); MEAN CORPUSCULAR HEMOGLOBIN 29.7 pg (26.0-30.0); MEAN CORPUSCULAR HGB CONC 33.4 pg (28.0-36.0); MEAN PLATELET VOLUME 7.2 fl; MONOCYTE ABSOLUTE 0.5 Th/cmm (0.3-1.0); NEUTROPHILE ABSOLUTE 8.7 Th/cmm (1.8-8.0); PLATELET COUNT 280 Th/cmm (150-400); RED BLOOD COUNT 4.83 Mil/cmm (4.30-5.70); RED CELL DISTRIBUTION WIDTH 14.1 % (11.5-20.0); WHITE BLOOD COUNT 10.4 Th/cmm (4.8-10.8)
--- NOTE | 2018-05-30 10:37 | Diagnostic Imaging Report ---
CHEST X-RAY: AP view INDICATION: pain COMPARISON: Chest x-ray 05/21/[address] of the chest on 05/19/2018 FINDINGS: The prior right PICC line has been removed. Persistent right lung infiltrates are seen with consolidative changes of right upper lobe and right effusion. Heart size is normal. Spinal scoliosis is noted. IMPRESSION: Persistent right lung infiltrates with right upper lobe consolidative changes in right effusion. Underlying neoplastic process and postobstructive pneumonia cannot be excluded. Clinical correlation and continued follow-up is recommended.
[2018-05-30 10:47] LABS: ANION GAP 11.1 (7.0-16.0); BUN - UREA NITROGEN 12 mg/dL (7-25); CALCIUM SERUM 8.4 mg/dL (8.6-10.3); CHLORIDE 104 mEq/L (98-107); CREATININE - SERUM 0.8 mg/dL (0.7-1.3); GFR AFRICAN-AMERICAN > 60.0 ml/min (>90); GFR NON AFRICAN-AMERICAN > 60.0 ml/min; GLUCOSE 145 mg/dL (70-105); POTASSIUM SERUM 4.1 mEq/L (3.5-5.1); SODIUM SERUM 134 mEq/L (136-145)
[2018-05-30 10:51] LABS: DDIMER QUANT 1240 ng/mL (100-400)
--- NOTE | 2018-05-30 12:08 | Diagnostic Imaging Report ---
CT Chest PE study Indication: Shortness of breath, rule out PE Comparison: Chest x-ray the same day and CT chest on 05/19/2018 Technique: Axial images were obtained from the base of the neck to the upper abdomen, following administration of IV contrast, PE protocol. Multiplanar reconstructions were made. total DLP: 314 , [id number] FINDINGS: Assessment of pulmonary arterial vasculature is limited due to suboptimal phase of contrast opacification. There is diffuse pulmonary emboli involving the right-sided branches primarily involving the right middle and right lower lobe. No definite evidence of mediastinal lymphadenopathy. Heart size is normal. Mild atherosclerosis is noted including coronary artery calcification. There are extensive right lung infiltrates with consolidative changes involving the right upper lobe. Additional atelectatic and hypoventilatory lung changes are noted. Additional few patchy infiltrates of the left lung also noted. There is a moderate-sized right pleural effusion. The upper abdomen demonstrates no acute abnormalities. Degenerative changes of the spine are noted. IMPRESSION: Findings consistent with pulmonary emboli involving the segmental and subsegmental branches of the right side primarily involving the right lower and right middle lobes. Extensive right lung infiltrates and right upper lobe consolidative changes. Moderate size right effusion is also noted Additional few patchy left lung infiltrates. Atherosclerosis including coronary artery calcifications. Critical results were discussed with the referring team on 05/30/2018 at 12:00 PM.
[2018-05-30] MEDS ORDERED: Enoxaparin 80 mg/0.8 mL 0.8mL Syr SUBQ STA (12:18)
[2018-05-30] MEDS ORDERED: Enoxaparin 80 mg/0.8 mL 0.8mL Syr SUBQ ONE (12:29)
[2018-05-30 12:32] LABS: INR 0.96 (0.5-1.4)
--- NOTE | 2018-05-30 14:43 | Diagnostic Imaging Report ---
Bilateral lower extremity DVT study HISTORY: Pulmonary embolus COMPARISON: CT angiogram performed the same day and previous DVT study on 05/19/2018 Technique: Longitudinal and transverse sonographic images of the bilateral lower extremity veins were obtained with doppler analysis. FINDINGS: There is normal compressibility, augmentation and phasicity of the bilateral common femoral, superficial femoral, popliteal, and posterior tibial veins. No thrombus is visualized. Slow flow was visualized. IMPRESSION: Slow flow visualized in the bilateral lower extremity venous system. No evidence of DVT formation.
[2018-05-30] MEDS ORDERED: Enoxaparin Subq per Pharmacy MC SCH (15:44)
[2018-05-30] MEDS: Enoxaparin 80 mg/0.8 mL 0.8mL Syr SUBQ SCH (18:08)
[2018-05-30] MEDS: Morphine Sulfate 2 mg/mL 1mL Syr IV PRN (20:02)
[2018-05-30] MEDS: cefTRIAXone 1 GM in Sodium Chloride 0.9% 50 ML IV SCH (21:56)
[2018-05-30] MEDS: Acetaminophen 500 MG TAB PO PRN (21:56)
--- NOTE | 2018-05-30 23:17 | History & Physical ---
ADMIT DATE: 05/30/2018 CHIEF COMPLAINT: Right-sided chest pain. HISTORY OF PRESENT ILLNESS: This is a 57-year-old male who was discharged from [facility] about a week ago, diagnosed with pneumonia, was sent home on oral antibiotic. The patient stated that he started to have experiencing pleuritic type of chest pain since yesterday, so he decided to come back to the Emergency Room. The patient denies any fever. No chills, no nausea, and no vomiting. No trouble breathing or any wheezing. He denies any smoking or any drug use. The patient had an initial blood test and had elevated D-dimer. CT angio showed right pulmonary embolism. The patient was started on anticoagulation. CT was positive for pneumonia, so was given antibiotic and admitted to the hospital for treatment. PAST MEDICAL HISTORY: Recent pneumonia. Otherwise negative. PAST SURGICAL HISTORY: Negative. FAMILY HISTORY: Noncontributory. SOCIAL HISTORY: Lives at home. Denies any alcohol, tobacco, or street drug use. 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 CURRENT MEDICATIONS: Tylenol, Zithromax, Rocephin, Lovenox, vancomycin, Motrin, and Zofran. REVIEW OF SYSTEMS: Positive for chest pain. Otherwise, all 12-point system review was negative. PHYSICAL EXAMINATION: VITAL SIGNS: Temperature is 101.7, pulse 89, respirations 18, blood pressure 132/68, and oxygen saturation 93% on room air. HEART: S1 and S2 normal. LUNGS: Bilateral few rales noted. ABDOMEN: Soft and nontender. No guarding and no rigidity. NEUROLOGIC: Alert, awake, follows commands, moves all extremities. No focal deficits.. EXTREMITIES: Negative for edema, no calf tenderness noted. LABORATORY DATA AND DIAGNOSTIC STUDIES: Available laboratory data and imaging study has been reviewed. ASSESSMENT: 1. Right-sided pulmonary embolism. 2. Right-sided pneumonia. 3. Mild hyponatremia. PLAN: The patient is admitted to tele unit, started on IV antibiotic with vancomycin, Rocephin, and Zithromax. Multi special team has been consulted including Infectious Disease specialist, Hematology, and motion pictures cartoonist. Lovenox started per pharmacy dosing. Bilateral lower extremity and upper extremity Doppler ordered. Further workup per hematology and Pulmonology. Blood cultures obtained. The patient is on morphine for severe pain, Motrin as needed, Zofran for nausea and vomiting, oxygen and bronchodilator treatment as needed. Discussed with the patient regarding the condition and plan of care with nursing staff. We will follow up on the special recommendations. JOB# [id number]
--- NOTE | 2018-05-31 00:30 | Consultation ---
DATE OF CONSULTATION: 05/30/2018 PATIENT OF: Dr. Santiago. Thank you very much, Dr. Santiago for this consultation. HISTORY OF PRESENT ILLNESS: This is a 57-year-old male who was recently treated for pneumonia, discharged on antibiotics. The patient was doing better. He stated that he started having significant chest pain on the right side posteriorly and presented to the Emergency Room. His chest pain is sharp. Denies any increased shortness of breath or congestion. The patient did have a CT of the chest, which was consistent with small pulmonary embolism in the subsegmental area. The patient was given Lovenox already. PAST MEDICAL HISTORY: As above. SOCIAL HISTORY: History of smoking for almost 40 years and he quit just 2 days before last admission a couple of weeks ago. PHYSICAL EXAMINATION: GENERAL: The patient is awake, alert, and in no distress. VITAL SIGNS: Temperature is 98.3, pulse 82, respiration is 18, blood pressure is 99/56, and saturation 97% on room air. HEENT: Atraumatic and normocephalic. Pupils react to light and accommodation. Ears, nose, and throat are normal. NECK: Supple. No JVD. CHEST: There are good breath sounds bilaterally. No wheezing or crackles. HEART: Regular rate and rhythm. ABDOMEN: Soft. EXTREMITIES: No edema. LABORATORY DATA AND DIAGNOSTIC STUDIES: WBC is 10.4, hemoglobin 14.4, hematocrit 42.9, and platelets 280. Sodium is 134, potassium 4.4, BUN 12, and creatinine 0.8. Troponin is less than 0.01. Chest x-ray is still showing extensive infiltrate in right upper lobe area. IMPRESSION: This is a 57-year-old male with: 1. Pulmonary embolism. 2. Pneumonia. 3. Underlying chronic obstructive pulmonary disease. 4. persistent infiltrate RUL area. PLAN: 1. IV antibiotics. 2. Anticoagulation. 3. Followup chest x-ray. The patient needs to have an improvement on his infiltrate prior to discharge. Otherwise, may need further workup such as CT-guided biopsy or other testing. Thank you very much for this consultation. We will follow the patient with you. JOB# [id number] [facility]
[2018-05-31] MEDS: Morphine Sulfate 2 mg/mL 1mL Syr IV PRN ×6 (02:23→23:31)
[2018-05-31] MEDS: Enoxaparin 80 mg/0.8 mL 0.8mL Syr SUBQ SCH ×2 (04:50→15:08)
--- NOTE | 2018-05-31 08:39 | Diagnostic Imaging Report ---
CHEST X-RAY: AP view INDICATION: Shortness of breath COMPARISON: 05/30/2018 FINDINGS: Right effusion is seen with diffuse right lung infiltrates. There may be a trace left effusion. Heart size is normal. IMPRESSION: Right pleural effusion and extensive right lung infiltrates and right upper lobe consolidative changes..
[2018-05-31] MEDS: Azithromycin 500 MG in Sodium Chloride 0.9% 250 ML IV SCH (10:45)
--- NOTE | 2018-05-31 12:10 | Diagnostic Imaging Report ---
Bilateral upper extremity venous Doppler History: Pulmonary embolus, rule out DVT Comparison: CT angiogram chest 05/30/2016 Technique/procedure: Exam of the right side demonstrates thrombus within the right axillary and right brachial veins. No other thrombus was identified. Exam of the left side demonstrates no evidence of DVT formation. IMPRESSION: Positive DVT study with thrombus visualized in the right axillary and right brachial vein. Results were relayed to the referring team following the exam.
[2018-05-31] MEDS: cefTRIAXone 1 GM in Sodium Chloride 0.9% 50 ML IV SCH (15:02)
--- NOTE | 2018-05-31 20:12 | Consultation ---
DATE OF CONSULTATION: 05/31/2018 HEMATOLOGY ONCOLOGY CONSULTATION REFERRED BY: Dr. Santiago. REASON FOR CONSULTATION: Pulmonary embolism. HISTORY OF PRESENT ILLNESS: The patient is a 57-year-old male, who was admitted with right-sided chest pain and underwent CT angiogram showing bilateral multiple segmental and subsegmental pulmonary emboli. The patient was recently hospitalized a week ago and was discharged on antibiotics. He was at home for 4 days and mostly bedridden during that time and experienced progressive pain in the right side. Therefore, readmitted to the hospital for it. PAST MEDICAL HISTORY: Pneumonia, otherwise unremarkable. PAST SURGICAL HISTORY: None. FAMILY HISTORY: None. SOCIAL HISTORY: Denies smoking or drinking. Self-employed. MEDICATIONS: Reviewed. Currently on Lovenox, Zithromax, ceftriaxone, vancomycin, and IV hydration. PHYSICAL EXAMINATION: VITAL SIGNS: Temperature 101.7, blood pressure is stable. HEENT: Atraumatic, saturation on room air 93%. NECK: No lymphadenopathy. CHEST: Scattered rhonchi. ABDOMEN: Soft. No organomegaly. EXTREMITIES: Unremarkable. NERVOUS SYSTEM: Nonfocal. LABORATORY DATA: Chemistry: Creatinine 0.8, calcium 8.4. CBC unremarkable. Coagulation panel normal. D-dimer elevated . CT scan of the abdomen, chest and pelvis with contrast reported pulmonary emboli involving segmental and subsegmental extensive right lung infiltrate, right upper lobe consolidation, moderate right-sided effusion. ASSESSMENT: Bilateral multiple segmental and subsegmental pulmonary emboli most likely secondary to bed rest for the past one week in this patient with persistent lung infiltrates and pleural effusion. The patient is on adequate antibiotics and will need to continue the treatment until resolution of the pneumonia and improvement in performance status and becoming ambulatory without desaturation with repeat imaging study to confirm the resolution of the consolidation and effusion to confirm adequate clinical response. If there is any residual and persistent infiltrate, then biopsy will be considered. Meanwhile, continue the current Lovenox therapy and we will start Coumadin since the patient is having adequate oral intake or switch to new oral anticoagulation, Eliquis or Xarelto if the insurance allows. Thank you, Dr. Santiago, for the opportunity to participate in the care of this interesting case. [facility]# [id number]
--- NOTE | 2018-05-31 23:43 | Consultation ---
Consult Note - Consult Note Service Date: 05/31/18 Referring Physician: Boubacar Santiago Consult Note: PHYSICIAN Consultation Note: Date of Admission: 05/30/18 Purpose of Consultation: Pneumonia Chief Complaint: Patient MATT LINARES was admitted to [facility] with PULMONARY EMBOLISM, PNA. History of Present Illness: 51 mL male with no significant past medical history recently discharged from the hospital for pneumonia. He was sent home on oral antibiotic. He started feeling some periodic chest pain. She came back to the ER for further evaluation and management. As patient had elevated d-dimer CT and he was performed and showed bilateral pulmonary embolism. This also asked Drive showed right lower lobe infiltrate. Antibiotic-sherwood, Rocephin and Zithromax was started. ID consult was called for antibiotic management. Past Medical History: Patient is to pneumonia. Diagnoses HYPO-OSMOLALITY AND HYPONATREMIA (05/30/18) OTHER PULMONARY EMBOLISM WITHOUT ACUTE COR PULMONALE (05/30/18) PNEUMONIA, UNSPECIFIED ORGANISM (05/30/18) CHRONIC OBSTRUCTIVE PULMONARY DISEASE, UNSPECIFIED (05/30/18) WEAKNESS (05/30/18) Allergies Allergy/AdvReac Type Severity Reaction Status Date / Time No Known Allergies Allergy Verified 05/19/18 07:23 Vital Signs Temp 98.6 F 05/31/18 20:00 Pulse 83 05/31/18 20:00 Resp 18 05/31/18 20:00 BP 105/66 05/31/18 20:00 Pulse Ox 92 05/31/18 20:00 Intake & Output 05/31/18 05/31/18 06/01/18 06:59 18:59 06:59 Intake Total 300 400 Output Total 300 300 Balance 0 100 Weight (lbs) 87.135 kg 88.042 kg Intake: Intake, IV Amount 300 Vancomycin HCl 1.25 gm In 250 Sodium Chloride 0.9% 250 ml @ 165 mls/hr IV Q12H [facility] Rx#:[id number] cefTRIAXone 1 gm In 50 Sodium Chloride 0.9% 50 ml @ 100 mls/hr IV Q24HR [facility] Rx#:[id number] Oral 400 Output: Urine 300 300 Other: # Voids 3 # Bowel Movements 1 Stool Characteristics Soft Soft Weight Source Bedscale Bedscale Home Medication Medication Instructions Recorded Type Clindamycin HCl 300 mg PO TID 7 Days capsule 05/25/18 Rx Lactobacillus Rhamnosus GG 1 each PO BID #30 capsule 05/25/18 Rx [Culturelle] Levofloxacin [Levaquin] 500 mg PO DAILY 7 Days tab 05/25/18 Rx Current Medications Generic Name Dose Route Start Last Admin Trade Name Freq PRN Reason Stop Dose Admin Acetaminophen 500 mg 05/30/18 17:22 05/30/18 21:56 Tylenol Extra Strength PO 07/29/18 17:21 500 mg Q6HR PRN Administration FEVER Enoxaparin Sodium 80 mg 05/30/18 16:00 05/31/18 15:08 Lovenox SUBQ 07/29/18 15:59 80 mg Q12H [facility] Administration Azithromycin 500 mg/ Sodium 250 mls @ 250 mls/hr 05/31/18 09:00 05/31/18 10: 45 Chloride IV 07/30/18 08:59 250 mls/hr DAILY [facility] Administration Ceftriaxone Sodium 1 gm/ 50 mls @ 100 mls/hr 05/30/18 15:44 05/31/18 15:02 Sodium Chloride IV 07/29/18 15:43 100 mls/hr Q24HR [facility] Administration Vancomycin HCl 1.25 gm/ Sodium 250 mls @ 165 mls/hr 05/31/18 16:00 05/31/18 16:27 Chloride IV 07/30/18 15:59 165 mls/hr Q12H [facility] Administration Ibuprofen 800 mg 05/30/18 17:17 05/31/18 19:37 Motrin PO 07/29/18 17:16 800 mg TID PRN Administration MILD TO MOD. PAIN Miscellaneous 1 ea 05/30/18 15:49 Vancomycin Iv Per Pharmacy 07/29/18 15:48 PRN PRN PROTOCOL Morphine Sulfate 2 mg 05/30/18 17:15 05/31/18 23:31 Morphine IV 07/29/18 17:14 2 mg Q4HR PRN Administration Severe Pain Ondansetron HCl 4 mg 05/30/18 17:25 Zofran IV 07/29/18 17:29 Q6H PRN NAUSEA Rivaroxaban 15 mg 06/01/18 09:00 Xarelto PO 06/22/18 08:59 BID [facility] Review of Systems: A 12 point ROS was reviewed with the pertinent positive and negatives noted in the HPI. Social History Smoking Status Former smoker Drug Use No Alcohol Use No Family Medical History Family Medical History Start: 05/30/18 15: 32 Freq: ONCE Status: Active Protocol: Document 05/30/18 17:29 STACEY (Rec: 05/30/18 17:29 STACEY [id number]) Family Medical History Father History Unknown Yes Physical Exam: General: Comfortable. Not in acute distress. HEENT: Head: NC NT. Oral cavity: Moist, pink tongue. Eyes: Pallor is present, no icterus. Neck: Supple, no JVD. No use of X his neck muscles. Cardio: S1 and S2 within normal limits. Respiratory: CTAP. Abdominal: Soft, nontender nondistended bowel sounds present Genital/Urinary: Deferred. Extremities: No cyanosis no clubbing no edema. Neurological: Alert, awake, oriented 3. Assessment: 1. Right-sided pneumonia. 2. Pulmonary embolism. Plan: Continue same antibiotics including Rocephin and Zithromax. Thank you, Dr. Santiago for involving me in taking care of this patient Signed, Prabhu Yao M.D. [id number]
[2018-06-01] MEDS: Enoxaparin 80 mg/0.8 mL 0.8mL Syr SUBQ SCH ×2 (03:42→15:20)
[2018-06-01] MEDS: Morphine Sulfate 2 mg/mL 1mL Syr IV PRN ×5 (03:43→21:34)
[2018-06-01] MEDS: Acetaminophen 500 MG TAB PO PRN ×2 (08:05→20:26)
[2018-06-01] MEDS: Azithromycin 500 MG in Sodium Chloride 0.9% 250 ML IV SCH (09:26)
[2018-06-01] MEDS: cefTRIAXone 1 GM in Sodium Chloride 0.9% 50 ML IV SCH (14:44)
--- NOTE | 2018-06-01 15:07 | General Progress Note ---
Subjective - Review of Systems Service Date: 06/01/18 Subjective: still short of breath with chest pain Objective - Results Result Diagrams: 05/30/18 10:00 05/30/18 10:00 Recent Labs: Laboratory Last Values WBC 10.4 Th/cmm (4.8-10.8) 05/30/18 10:00 RBC 4.83 Mil/cmm (4.30-5.70) 05/30/18 10:00 Hgb 14.4 gm/dL (12-16) 05/30/18 10:00 Hct 42.9 % (41.0-60) 05/30/18 10:00 MCV 88.8 fl (80-99) 05/30/18 10:00 MCH 29.7 pg (26.0-30.0) 05/30/18 10:00 MCHC Differential 33.4 pg (28.0-36.0) 05/30/18 10:00 RDW 14.1 % (11.5-20.0) 05/30/18 10:00 Plt Count 280 Th/cmm (150-400) 05/30/18 10:00 MPV 7.2 fl 05/30/18 10:00 Neutrophils % 83.6 % (40.0-80.0) H 05/30/18 10:00 Lymphocytes % 10.3 % (20.0-50.0) L 05/30/18 10:00 Monocytes % 4.7 % (2.0-10.0) 05/30/18 10:00 Eosinophils % 1.2 % (0.0-5.0) 05/30/18 10:00 Basophils % 0.2 % (0.0-2.0) 05/30/18 10:00 PT 10.0 SECONDS (9.5-11.5) 05/30/18 10:00 INR 0.96 (0.5-1.4) 05/30/18 10:00 PTT (Actin FS) 25.4 SECONDS (26.0-38.0) L 05/30/18 10:00 D-Dimer 1240 ng/mL (100-400) H 05/30/18 10:00 Sodium 134 mEq/L (136-145) L 05/30/18 10:00 Potassium 4.1 mEq/L (3.5-5.1) 05/30/18 10:00 Chloride 104 mEq/L (98-107) 05/30/18 10:00 Carbon Dioxide 23.0 mEq/L (21.0-31.0) 05/30/18 10:00 Anion Gap 11.1 (7.0-16.0) 05/30/18 10:00 BUN 12 mg/dL (7-25) 05/30/18 10:00 Creatinine 0.8 mg/dL (0.7-1.3) 05/30/18 10:00 Est GFR ( Amer) > 60.0 ml/min (>90) 05/30/18 10:00 Est GFR (Non-Af Amer) > 60.0 ml/min 05/30/18 10:00 BUN/Creatinine Ratio 15.0 05/30/18 10:00 Glucose 145 mg/dL (70-105) H 05/30/18 10:00 POC Glucose 100 MG/DL (70 - 105) 05/30/18 16:22 Calcium 8.4 mg/dL (8.6-10.3) L 05/30/18 10:00 Troponin I < 0.01 ng/mL (0.01-0.05) L 05/30/18 10:13 - Physical Exam Vitals and I&O: Vital Signs Temp 98.7 F 06/01/18 12:47 Pulse 72 06/01/18 12:47 Resp 18 06/01/18 14:14 BP 106/66 06/01/18 12:47 Pulse Ox 97 06/01/18 08:22 Intake & Output 05/31/18 06/01/18 06/01/18 18:59 06:59 18:59 Intake Total 950 250 250 Output Total 300 Balance 650 250 250 Weight (lbs) 88.042 kg Intake: Intake, IV Amount 550 250 250 Azithromycin 500 mg In 250 250 Sodium Chloride 0.9% 250 ml @ 250 mls/hr IV DAILY [facility] Rx#:[id number] Vancomycin HCl 1.25 gm In 250 250 Sodium Chloride 0.9% 250 ml @ 165 mls/hr IV Q12H [facility] Rx#:[id number] cefTRIAXone 1 gm In 50 Sodium Chloride 0.9% 50 ml @ 100 mls/hr IV Q24HR [facility] Rx#:[id number] Oral 400 Output: Urine 300 Other: # Voids 3 # Bowel Movements 1 Stool Characteristics Soft Weight Source Bedscale Active Medications: Current Medications Acetaminophen (Tylenol Extra Strength) 500 mg PO Q6HR PRN PRN Reason: FEVER Stop: 07/29/18 17:21 Last Admin: 06/01/18 08:05 Dose: 500 mg Albuterol/Ipratropium (Duoneb Neb) 3 ml HHN Q6HRT [facility] Stop: 07/31/18 18:59 Enoxaparin Sodium (Lovenox) 80 mg SUBQ Q12H [facility] Stop: 07/29/18 15:59 Last Admin: 06/01/18 03:42 Dose: 80 mg Azithromycin 500 mg/ Sodium (Chloride) 250 mls @ 250 mls/hr IV DAILY [facility] Stop: 07/30/18 08:59 Last Infusion: 06/01/18 10:30 Dose: Infused Ceftriaxone Sodium 1 gm/ (Sodium Chloride) 50 mls @ 100 mls/hr IV Q24HR [facility] Stop: 07/29/18 15:43 Last Admin: 06/01/18 14:44 Dose: 100 mls/hr Vancomycin HCl 1.25 gm/ Sodium (Chloride) 250 mls @ 165 mls/hr IV Q12H [facility] Stop: 07/30/18 15:59 Last Infusion: 06/01/18 05:13 Dose: Infused Ibuprofen (Motrin) 800 mg PO TID PRN PRN Reason: MILD TO MOD. PAIN Stop: 07/29/18 17:16 Last Admin: 06/01/18 07:03 Dose: 800 mg Miscellaneous (Vancomycin Iv Per Pharmacy) 1 ea [facility] PRN PRN PRN Reason: PROTOCOL Stop: 07/29/18 15:48 Morphine Sulfate (Morphine) 2 mg IV Q4HR PRN PRN Reason: Severe Pain Stop: 07/29/18 17:14 Last Admin: 06/01/18 11:59 Dose: 2 mg Ondansetron HCl (Zofran) 4 mg IV Q6H PRN PRN Reason: NAUSEA Stop: 07/29/18 17:29 Rivaroxaban (Xarelto) 15 mg PO BID [facility] Stop: 06/22/18 08:59 General: Alert HEENT: Atraumatic Neck: Supple Lungs: Other (decrease air entry right side) Abdomen: Soft Assessment/Plan - Assessment Assessment: * right lung consolidation and effusion * multiple bilateral pulmonary emboli * right upper ext thrombosis Continue eliquis and antibiotics and follow imaging for resolution; may need bronchoscopy/biopsy if no resolution
[2018-06-01 15:15] LABS: % BASOPHILS 0.9 % (0.0-2.0); % LYMPHOCYTES 18.7 % (20.0-50.0); % MONOCYTES 12.7 % (2.0-10.0); % NEUTROPHILS 65.7 % (40.0-80.0); EOSINOPHILE ABSOLUTE 0.1 Th/cmm (0.1-0.4); HEMATOCRIT 35.4 % (41.0-60); HEMOGLOBIN 11.8 gm/dL (12-16); MEAN CELL VOLUME 89.6 fl (80-99); MEAN CORPUSCULAR HGB CONC 33.5 pg (28.0-36.0); MEAN PLATELET VOLUME 6.9 fl; MONOCYTE ABSOLUTE 0.7 Th/cmm (0.3-1.0); NEUTROPHILE ABSOLUTE 3.7 Th/cmm (1.8-8.0); PLATELET COUNT 310 Th/cmm (150-400); RED BLOOD COUNT 3.95 Mil/cmm (4.30-5.70); RED CELL DISTRIBUTION WIDTH 14.2 % (11.5-20.0); WHITE BLOOD COUNT 5.5 Th/cmm (4.8-10.8)
[2018-06-01] MEDS: Albuterol/Ipratropium Neb 3 ML AERS HHN SCH (19:22)
[2018-06-01] MEDS: Vancomycin HCl 1.5 GM in Sodium Chloride 0.9% 500 ML IV SCH (20:00)
--- NOTE | 2018-06-01 20:30 | General Progress Note ---
Subjective - Review of Systems Service Date: 05/31/18 Subjective: Late entry: Patient seen and examined doing fine c/o right sided chest pain denied shortness of breath Objective - Results Result Diagrams: 06/01/18 15:05 05/30/18 10:00 Recent Labs: Laboratory Last Values WBC 5.5 Th/cmm (4.8-10.8) 06/01/18 15:05 RBC 3.95 Mil/cmm (4.30-5.70) L 06/01/18 15:05 Hgb 11.8 gm/dL (12-16) L 06/01/18 15:05 Hct 35.4 % (41.0-60) L 06/01/18 15:05 MCV 89.6 fl (80-99) 06/01/18 15:05 MCH 30.0 pg (26.0-30.0) 06/01/18 15:05 MCHC Differential 33.5 pg (28.0-36.0) 06/01/18 15:05 RDW 14.2 % (11.5-20.0) 06/01/18 15:05 Plt Count 310 Th/cmm (150-400) 06/01/18 15:05 MPV 6.9 fl 06/01/18 15:05 Neutrophils % 65.7 % (40.0-80.0) 06/01/18 15:05 Lymphocytes % 18.7 % (20.0-50.0) L 06/01/18 15:05 Monocytes % 12.7 % (2.0-10.0) H 06/01/18 15:05 Eosinophils % 2.0 % (0.0-5.0) 06/01/18 15:05 Basophils % 0.9 % (0.0-2.0) 06/01/18 15:05 PT 10.0 SECONDS (9.5-11.5) 05/30/18 10:00 INR 0.96 (0.5-1.4) 05/30/18 10:00 PTT (Actin FS) 25.4 SECONDS (26.0-38.0) L 05/30/18 10:00 D-Dimer 1240 ng/mL (100-400) H 05/30/18 10:00 Sodium 134 mEq/L (136-145) L 05/30/18 10:00 Potassium 4.1 mEq/L (3.5-5.1) 05/30/18 10:00 Chloride 104 mEq/L (98-107) 05/30/18 10:00 Carbon Dioxide 23.0 mEq/L (21.0-31.0) 05/30/18 10:00 Anion Gap 11.1 (7.0-16.0) 05/30/18 10:00 BUN 12 mg/dL (7-25) 05/30/18 10:00 Creatinine 0.8 mg/dL (0.7-1.3) 05/30/18 10:00 Est GFR ( Amer) > 60.0 ml/min (>90) 05/30/18 10:00 Est GFR (Non-Af Amer) > 60.0 ml/min 05/30/18 10:00 BUN/Creatinine Ratio 15.0 05/30/18 10:00 Glucose 145 mg/dL (70-105) H 05/30/18 10:00 POC Glucose 100 MG/DL (70 - 105) 05/30/18 16:22 Calcium 8.4 mg/dL (8.6-10.3) L 05/30/18 10:00 Troponin I < 0.01 ng/mL (0.01-0.05) L 05/30/18 10:13 Vancomycin Trough 9.8 ug/mL (5-10) 06/01/18 15:05 - Physical Exam Vitals and I&O: Vital Signs Temp 97.6 F 06/01/18 17:02 Pulse 80 06/01/18 19:26 Resp 18 06/01/18 19:26 BP 113/70 06/01/18 17:02 Pulse Ox 96 06/01/18 19:26 Intake & Output 06/01/18 06/01/18 06/02/18 06:59 18:59 06:59 Intake Total 250 300 Balance 250 300 Intake: Intake, IV Amount 250 300 Azithromycin 500 mg In 250 Sodium Chloride 0.9% 250 ml @ 250 mls/hr IV DAILY [facility] Rx#:[id number] Vancomycin HCl 1.25 gm In 250 Sodium Chloride 0.9% 250 ml @ 165 mls/hr IV Q12H [facility] Rx#:[id number] cefTRIAXone 1 gm In 50 Sodium Chloride 0.9% 50 ml @ 100 mls/hr IV Q24HR [facility] Rx#:[id number] Active Medications: Current Medications Acetaminophen (Tylenol Extra Strength) 500 mg PO Q6HR PRN PRN Reason: FEVER Stop: 07/29/18 17:21 Last Admin: 06/01/18 20:26 Dose: 500 mg Albuterol/Ipratropium (Duoneb Neb) 3 ml HHN Q6HRT [facility] Stop: 07/31/18 18:59 Last Admin: 06/01/18 19:22 Dose: 3 ml Enoxaparin Sodium (Lovenox) 80 mg SUBQ Q12H [facility] Stop: 07/29/18 15:59 Last Admin: 06/01/18 15:20 Dose: 80 mg Azithromycin 500 mg/ Sodium (Chloride) 250 mls @ 250 mls/hr IV DAILY [facility] Stop: 07/30/18 08:59 Last Infusion: 06/01/18 10:30 Dose: Infused Ceftriaxone Sodium 1 gm/ (Sodium Chloride) 50 mls @ 100 mls/hr IV Q24HR [facility] Stop: 07/29/18 15:43 Last Infusion: 06/01/18 15:22 Dose: Infused Vancomycin HCl 1.5 gm/ Sodium (Chloride) 500 mls @ 250 mls/hr IV Q12HR@0800, 2000 [facility] Stop: 07/31/18 19:59 Last Admin: 06/01/18 20:00 Dose: 250 mls/hr Ibuprofen (Motrin) 800 mg PO TID PRN PRN Reason: MILD TO MOD. PAIN Stop: 07/29/18 17:16 Last Admin: 06/01/18 07:03 Dose: 800 mg Miscellaneous (Vancomycin Iv Per Pharmacy) 1 ea [facility] PRN PRN PRN Reason: PROTOCOL Stop: 07/29/18 15:48 Morphine Sulfate (Morphine) 2 mg IV Q4HR PRN PRN Reason: Severe Pain Stop: 07/29/18 17:14 Last Admin: 06/01/18 17:08 Dose: 2 mg Ondansetron HCl (Zofran) 4 mg IV Q6H PRN PRN Reason: NAUSEA Stop: 07/29/18 17:29 Rivaroxaban (Xarelto) 15 mg PO BID [facility] Stop: 06/22/18 08:59 General: Alert Lungs: Clear to auscultation Abdomen: Soft Assessment/Plan - Assessment Assessment: Bilateral PE pneumonia - Plan Plan: Continue anticoagulation Continue antibiotics Morphine prn Case discussed with Hematology
--- NOTE | 2018-06-01 20:32 | General Progress Note ---
Subjective - Review of Systems Service Date: 06/01/18 Subjective: Patient seen and examined doing fine denied any complaints Objective - Results Result Diagrams: 06/01/18 15:05 05/30/18 10:00 Recent Labs: Laboratory Last Values WBC 5.5 Th/cmm (4.8-10.8) 06/01/18 15:05 RBC 3.95 Mil/cmm (4.30-5.70) L 06/01/18 15:05 Hgb 11.8 gm/dL (12-16) L 06/01/18 15:05 Hct 35.4 % (41.0-60) L 06/01/18 15:05 MCV 89.6 fl (80-99) 06/01/18 15:05 MCH 30.0 pg (26.0-30.0) 06/01/18 15:05 MCHC Differential 33.5 pg (28.0-36.0) 06/01/18 15:05 RDW 14.2 % (11.5-20.0) 06/01/18 15:05 Plt Count 310 Th/cmm (150-400) 06/01/18 15:05 MPV 6.9 fl 06/01/18 15:05 Neutrophils % 65.7 % (40.0-80.0) 06/01/18 15:05 Lymphocytes % 18.7 % (20.0-50.0) L 06/01/18 15:05 Monocytes % 12.7 % (2.0-10.0) H 06/01/18 15:05 Eosinophils % 2.0 % (0.0-5.0) 06/01/18 15:05 Basophils % 0.9 % (0.0-2.0) 06/01/18 15:05 PT 10.0 SECONDS (9.5-11.5) 05/30/18 10:00 INR 0.96 (0.5-1.4) 05/30/18 10:00 PTT (Actin FS) 25.4 SECONDS (26.0-38.0) L 05/30/18 10:00 D-Dimer 1240 ng/mL (100-400) H 05/30/18 10:00 Sodium 134 mEq/L (136-145) L 05/30/18 10:00 Potassium 4.1 mEq/L (3.5-5.1) 05/30/18 10:00 Chloride 104 mEq/L (98-107) 05/30/18 10:00 Carbon Dioxide 23.0 mEq/L (21.0-31.0) 05/30/18 10:00 Anion Gap 11.1 (7.0-16.0) 05/30/18 10:00 BUN 12 mg/dL (7-25) 05/30/18 10:00 Creatinine 0.8 mg/dL (0.7-1.3) 05/30/18 10:00 Est GFR ( Amer) > 60.0 ml/min (>90) 05/30/18 10:00 Est GFR (Non-Af Amer) > 60.0 ml/min 05/30/18 10:00 BUN/Creatinine Ratio 15.0 05/30/18 10:00 Glucose 145 mg/dL (70-105) H 05/30/18 10:00 POC Glucose 100 MG/DL (70 - 105) 05/30/18 16:22 Calcium 8.4 mg/dL (8.6-10.3) L 05/30/18 10:00 Troponin I < 0.01 ng/mL (0.01-0.05) L 05/30/18 10:13 Vancomycin Trough 9.8 ug/mL (5-10) 06/01/18 15:05 - Physical Exam Vitals and I&O: Vital Signs Temp 97.6 F 06/01/18 17:02 Pulse 80 06/01/18 19:26 Resp 18 06/01/18 19:26 BP 113/70 06/01/18 17:02 Pulse Ox 96 06/01/18 19:26 Intake & Output 06/01/18 06/01/18 06/02/18 06:59 18:59 06:59 Intake Total 250 300 Balance 250 300 Intake: Intake, IV Amount 250 300 Azithromycin 500 mg In 250 Sodium Chloride 0.9% 250 ml @ 250 mls/hr IV DAILY [facility] Rx#:[id number] Vancomycin HCl 1.25 gm In 250 Sodium Chloride 0.9% 250 ml @ 165 mls/hr IV Q12H [facility] Rx#:[id number] cefTRIAXone 1 gm In 50 Sodium Chloride 0.9% 50 ml @ 100 mls/hr IV Q24HR [facility] Rx#:[id number] Active Medications: Current Medications Acetaminophen (Tylenol Extra Strength) 500 mg PO Q6HR PRN PRN Reason: FEVER Stop: 07/29/18 17:21 Last Admin: 06/01/18 20:26 Dose: 500 mg Albuterol/Ipratropium (Duoneb Neb) 3 ml HHN Q6HRT [facility] Stop: 07/31/18 18:59 Last Admin: 06/01/18 19:22 Dose: 3 ml Enoxaparin Sodium (Lovenox) 80 mg SUBQ Q12H [facility] Stop: 07/29/18 15:59 Last Admin: 06/01/18 15:20 Dose: 80 mg Azithromycin 500 mg/ Sodium (Chloride) 250 mls @ 250 mls/hr IV DAILY [facility] Stop: 07/30/18 08:59 Last Infusion: 06/01/18 10:30 Dose: Infused Ceftriaxone Sodium 1 gm/ (Sodium Chloride) 50 mls @ 100 mls/hr IV Q24HR [facility] Stop: 07/29/18 15:43 Last Infusion: 06/01/18 15:22 Dose: Infused Vancomycin HCl 1.5 gm/ Sodium (Chloride) 500 mls @ 250 mls/hr IV Q12HR@0800, 2000 [facility] Stop: 07/31/18 19:59 Last Admin: 06/01/18 20:00 Dose: 250 mls/hr Ibuprofen (Motrin) 800 mg PO TID PRN PRN Reason: MILD TO MOD. PAIN Stop: 07/29/18 17:16 Last Admin: 06/01/18 07:03 Dose: 800 mg Miscellaneous (Vancomycin Iv Per Pharmacy) 1 ea [facility] PRN PRN PRN Reason: PROTOCOL Stop: 07/29/18 15:48 Morphine Sulfate (Morphine) 2 mg IV Q4HR PRN PRN Reason: Severe Pain Stop: 07/29/18 17:14 Last Admin: 06/01/18 17:08 Dose: 2 mg Ondansetron HCl (Zofran) 4 mg IV Q6H PRN PRN Reason: NAUSEA Stop: 07/29/18 17:29 Rivaroxaban (Xarelto) 15 mg PO BID [facility] Stop: 06/22/18 08:59 General: Alert Cardiovascular: Regular rate Lungs: Clear to auscultation Assessment/Plan - Assessment Assessment: Bilateral PE pneumonia Right UE DVT - Plan Plan: Continue anticoagulation Continue antibiotics Morphine prn Plan of care discussed with the patient
[2018-06-02] MEDS: Albuterol/Ipratropium Neb 3 ML AERS HHN SCH ×4 (00:42→19:13)
[2018-06-02] MEDS: Morphine Sulfate 2 mg/mL 1mL Syr IV PRN ×4 (02:43→19:48)
[2018-06-02] MEDS: Enoxaparin 80 mg/0.8 mL 0.8mL Syr SUBQ SCH ×2 (04:25→15:14)
[2018-06-02] MEDS: Vancomycin HCl 1.5 GM in Sodium Chloride 0.9% 500 ML IV SCH ×2 (08:35→19:48)
--- NOTE | 2018-06-02 09:40 | Diagnostic Imaging Report ---
Exam: Chest x-ray. HISTORY: Shortness of breath. Findings: Frontal examination of the chest was reviewed compared to prior study of the eighth 1018 demonstrates unchanged appearance of right-sided pneumonia and effusion. The left lung parenchyma is well aerated. Bony structures intact. IMPRESSION: unchanged right-sided pneumonia and effusion with a right apical capping. Follow-up examination is recommended.
[2018-06-02] MEDS: Azithromycin 500 MG in Sodium Chloride 0.9% 250 ML IV SCH (11:39)
[2018-06-02] MEDS: cefTRIAXone 1 GM in Sodium Chloride 0.9% 50 ML IV SCH (15:14)
--- NOTE | 2018-06-02 19:56 | General Progress Note ---
Subjective - Review of Systems Service Date: 06/02/18 Subjective: Patient seen and examined doing fine denied any complaints Objective - Results Result Diagrams: 06/01/18 15:05 05/30/18 10:00 Recent Labs: Laboratory Last Values WBC 5.5 Th/cmm (4.8-10.8) 06/01/18 15:05 RBC 3.95 Mil/cmm (4.30-5.70) L 06/01/18 15:05 Hgb 11.8 gm/dL (12-16) L 06/01/18 15:05 Hct 35.4 % (41.0-60) L 06/01/18 15:05 MCV 89.6 fl (80-99) 06/01/18 15:05 MCH 30.0 pg (26.0-30.0) 06/01/18 15:05 MCHC Differential 33.5 pg (28.0-36.0) 06/01/18 15:05 RDW 14.2 % (11.5-20.0) 06/01/18 15:05 Plt Count 310 Th/cmm (150-400) 06/01/18 15:05 MPV 6.9 fl 06/01/18 15:05 Neutrophils % 65.7 % (40.0-80.0) 06/01/18 15:05 Lymphocytes % 18.7 % (20.0-50.0) L 06/01/18 15:05 Monocytes % 12.7 % (2.0-10.0) H 06/01/18 15:05 Eosinophils % 2.0 % (0.0-5.0) 06/01/18 15:05 Basophils % 0.9 % (0.0-2.0) 06/01/18 15:05 PT 10.0 SECONDS (9.5-11.5) 05/30/18 10:00 INR 0.96 (0.5-1.4) 05/30/18 10:00 PTT (Actin FS) 25.4 SECONDS (26.0-38.0) L 05/30/18 10:00 D-Dimer 1240 ng/mL (100-400) H 05/30/18 10:00 Sodium 134 mEq/L (136-145) L 05/30/18 10:00 Potassium 4.1 mEq/L (3.5-5.1) 05/30/18 10:00 Chloride 104 mEq/L (98-107) 05/30/18 10:00 Carbon Dioxide 23.0 mEq/L (21.0-31.0) 05/30/18 10:00 Anion Gap 11.1 (7.0-16.0) 05/30/18 10:00 BUN 12 mg/dL (7-25) 05/30/18 10:00 Creatinine 0.8 mg/dL (0.7-1.3) 05/30/18 10:00 Est GFR ( Amer) > 60.0 ml/min (>90) 05/30/18 10:00 Est GFR (Non-Af Amer) > 60.0 ml/min 05/30/18 10:00 BUN/Creatinine Ratio 15.0 05/30/18 10:00 Glucose 145 mg/dL (70-105) H 05/30/18 10:00 POC Glucose 100 MG/DL (70 - 105) 05/30/18 16:22 Calcium 8.4 mg/dL (8.6-10.3) L 05/30/18 10:00 Troponin I < 0.01 ng/mL (0.01-0.05) L 05/30/18 10:13 Vancomycin Trough 9.8 ug/mL (5-10) 06/01/18 15:05 - Physical Exam Vitals and I&O: Vital Signs Temp 100.2 F 06/02/18 16:00 Pulse 88 06/02/18 19:13 Resp 18 06/02/18 19:13 BP 107/49 06/02/18 16:00 Pulse Ox 94 06/02/18 19:13 Intake & Output 06/02/18 06/02/18 06/03/18 06:59 18:59 06:59 Intake Total 740 1450 Balance 740 1450 Weight (lbs) 86.228 kg 86.228 kg Intake: Intake, IV Amount 500 800 Azithromycin 500 mg In 250 Sodium Chloride 0.9% 250 ml @ 250 mls/hr IV DAILY [facility] Rx#:[id number] Vancomycin HCl 1.5 gm In 500 500 Sodium Chloride 0.9% 500 ml @ 250 mls/hr IV Q12HR@ 0800,1999 [facility] Rx#: [id number] cefTRIAXone 1 gm In 50 Sodium Chloride 0.9% 50 ml @ 100 mls/hr IV Q24HR [facility] Rx#:[id number] Oral 240 650 Other: # Voids 3 Weight Source Bedscale Bedscale Active Medications: Current Medications Acetaminophen (Tylenol Extra Strength) 500 mg PO Q6HR PRN PRN Reason: FEVER Stop: 07/29/18 17:21 Last Admin: 06/01/18 20:26 Dose: 500 mg Albuterol/Ipratropium (Duoneb Neb) 3 ml HHN Q6HRT [facility] Stop: 07/31/18 18:59 Last Admin: 06/02/18 19:13 Dose: 3 ml Azithromycin 500 mg/ Sodium (Chloride) 250 mls @ 250 mls/hr IV DAILY [facility] Stop: 07/30/18 08:59 Last Infusion: 06/02/18 12:40 Dose: Infused Ceftriaxone Sodium 1 gm/ (Sodium Chloride) 50 mls @ 100 mls/hr IV Q24HR [facility] Stop: 07/29/18 15:43 Last Infusion: 06/02/18 15:45 Dose: Infused Vancomycin HCl 1.5 gm/ Sodium (Chloride) 500 mls @ 250 mls/hr IV Q12HR@0800, 2000 [facility] Stop: 07/31/18 19:59 Last Admin: 06/02/18 19:48 Dose: 250 mls/hr Ibuprofen (Motrin) 800 mg PO TID PRN PRN Reason: MILD TO MOD. PAIN Stop: 07/29/18 17:16 Last Admin: 06/01/18 07:03 Dose: 800 mg Miscellaneous (Vancomycin Iv Per Pharmacy) 1 ea MC PRN PRN PRN Reason: PROTOCOL Stop: 07/29/18 15:48 Morphine Sulfate (Morphine) 2 mg IV Q4HR PRN PRN Reason: Severe Pain Stop: 07/29/18 17:14 Last Admin: 06/02/18 19:48 Dose: 2 mg Ondansetron HCl (Zofran) 4 mg IV Q6H PRN PRN Reason: NAUSEA Stop: 07/29/18 17:29 Rivaroxaban (Xarelto) 15 mg PO BID [facility] Stop: 08/02/18 08:59 General: Alert Cardiovascular: Regular rate Lungs: Clear to auscultation Abdomen: Soft Extremities: no Edema Assessment/Plan - Assessment Assessment: Bilateral PE pneumonia Right UE DVT - Plan Plan: Continue anticoagulation Continue antibiotics Morphine prn Plan of care discussed with the patient
[2018-06-03] MEDS: Morphine Sulfate 2 mg/mL 1mL Syr IV PRN ×5 (04:11→22:41)
[2018-06-03 06:36] LABS: HEMATOCRIT 35.2 % (41.0-60); MEAN CELL VOLUME 89.4 fl (80-99); MEAN CORPUSCULAR HEMOGLOBIN 30.4 pg (26.0-30.0); MEAN PLATELET VOLUME 7.7 fl; PLATELET COUNT 318 Th/cmm (150-400); RED BLOOD COUNT 3.93 Mil/cmm (4.30-5.70); RED CELL DISTRIBUTION WIDTH 13.3 % (11.5-20.0); WHITE BLOOD COUNT 6.1 Th/cmm (4.8-10.8)
[2018-06-03] MEDS: Albuterol/Ipratropium Neb 3 ML AERS HHN SCH ×4 (06:58→19:30)
[2018-06-03 07:18] LABS: ATYPICAL LYMPH 5 %; BAND NEUTROPHILE 1 % (0-10); EOSINOPHIL 1 % (0-5); LYMPHOCYTE 15 % (20-50); MONOCYTE 5 % (2-10); NEUTROPHILS 73 % (40-80); PLATELET ESTIMATE ADEQUATE (NORMAL)
[2018-06-03] MEDS: Vancomycin HCl 1.5 GM in Sodium Chloride 0.9% 500 ML IV SCH ×2 (08:06→20:06)
[2018-06-03] MEDS: Azithromycin 500 MG in Sodium Chloride 0.9% 250 ML IV SCH (11:03)
--- NOTE | 2018-06-03 12:43 | Infectious Disease Prog Note ---
Infectious Disease Subjective - Review of Systems Service Date: 06/03/18 Subjective: There is no new change, low grade fevers. no chills. no SOB. Infectious Disease Objective - Results Result Diagrams: 06/03/18 04:15 05/30/18 10:00 Recent Labs: Laboratory Last Values WBC 6.1 Th/cmm (4.8-10.8) 06/03/18 04:15 RBC 3.93 Mil/cmm (4.30-5.70) L 06/03/18 04:15 Hgb 12.0 gm/dL (12-16) 06/03/18 04:15 Hct 35.2 % (41.0-60) L 06/03/18 04:15 MCV 89.4 fl (80-99) 06/03/18 04:15 MCH 30.4 pg (26.0-30.0) H 06/03/18 04:15 MCHC Differential 34.0 pg (28.0-36.0) 06/03/18 04:15 RDW 13.3 % (11.5-20.0) 06/03/18 04:15 Plt Count 318 Th/cmm (150-400) 06/03/18 04:15 MPV 7.7 fl 06/03/18 04:15 Add Manual Diff YES 06/03/18 04:15 Neutrophils % 65.7 % (40.0-80.0) 06/01/18 15:05 Band Neutrophils % 1 % (0-10) 06/03/18 04:15 Lymphocytes % 18.7 % (20.0-50.0) L 06/01/18 15:05 Monocytes % 12.7 % (2.0-10.0) H 06/01/18 15:05 Eosinophils % 2.0 % (0.0-5.0) 06/01/18 15:05 Basophils % 0.9 % (0.0-2.0) 06/01/18 15:05 Neutrophils (Manual) 73 % (40-80) 06/03/18 04:15 Lymphocytes 15 % (20-50) L 06/03/18 04:15 Monocytes 5 % (2-10) 06/03/18 04:15 Eosinophils 1 % (0-5) 06/03/18 04:15 Atypical Lymphocytes 5 % 06/03/18 04:15 Platelet Estimate ADEQUATE (NORMAL) 06/03/18 04:15 PT 10.0 SECONDS (9.5-11.5) 05/30/18 10:00 INR 0.96 (0.5-1.4) 05/30/18 10:00 PTT (Actin FS) 25.4 SECONDS (26.0-38.0) L 05/30/18 10:00 D-Dimer 1240 ng/mL (100-400) H 05/30/18 10:00 Sodium 134 mEq/L (136-145) L 05/30/18 10:00 Potassium 4.1 mEq/L (3.5-5.1) 05/30/18 10:00 Chloride 104 mEq/L (98-107) 05/30/18 10:00 Carbon Dioxide 23.0 mEq/L (21.0-31.0) 05/30/18 10:00 Anion Gap 11.1 (7.0-16.0) 05/30/18 10:00 BUN 12 mg/dL (7-25) 05/30/18 10:00 Creatinine 0.8 mg/dL (0.7-1.3) 05/30/18 10:00 Est GFR ( Amer) > 60.0 ml/min (>90) 05/30/18 10:00 Est GFR (Non-Af Amer) > 60.0 ml/min 05/30/18 10:00 BUN/Creatinine Ratio 15.0 05/30/18 10:00 Glucose 145 mg/dL (70-105) H 05/30/18 10:00 POC Glucose 100 MG/DL (70 - 105) 05/30/18 16:22 Calcium 8.4 mg/dL (8.6-10.3) L 05/30/18 10:00 Troponin I < 0.01 ng/mL (0.01-0.05) L 05/30/18 10:13 Vancomycin Trough 9.8 ug/mL (5-10) 06/01/18 15:05 - Physical Exam Vitals and I&O: Vital Signs Temp 97.2 F 06/03/18 08:12 Pulse 94 06/03/18 12:05 Resp 16 06/03/18 12:05 BP 131/76 06/03/18 08:12 Pulse Ox 90 06/03/18 12:05 Intake & Output 06/02/18 06/03/18 06/03/18 18:59 06:59 18:59 Intake Total 1450 900 500 Output Total 800 Balance 1450 100 500 Weight (lbs) 86.228 kg 87.09 kg Intake: Intake, IV Amount 800 500 500 Azithromycin 500 mg In 250 Sodium Chloride 0.9% 250 ml @ 250 mls/hr IV DAILY [facility] Rx#:[id number] Vancomycin HCl 1.5 gm In 500 500 500 Sodium Chloride 0.9% 500 ml @ 250 mls/hr IV Q12HR@ 799,1999 [facility] Rx#: [id number] cefTRIAXone 1 gm In 50 Sodium Chloride 0.9% 50 ml @ 100 mls/hr IV Q24HR [facility] Rx#:[id number] Oral 650 400 Output: Urine 800 Other: # Voids 3 # Bowel Movements 0 Weight Source Bedscale Bedscale Active Medications: Current Medications Acetaminophen (Tylenol Extra Strength) 500 mg PO Q6HR PRN PRN Reason: FEVER Stop: 07/29/18 17:21 Last Admin: 06/01/18 20:26 Dose: 500 mg Albuterol/Ipratropium (Duoneb Neb) 3 ml HHN Q6HRT [facility] Stop: 07/31/18 18:59 Last Admin: 06/03/18 12:03 Dose: 3 ml Azithromycin 500 mg/ Sodium (Chloride) 250 mls @ 250 mls/hr IV DAILY [facility] Stop: 07/30/18 08:59 Last Admin: 06/03/18 11:03 Dose: 250 mls/hr Ceftriaxone Sodium 1 gm/ (Sodium Chloride) 50 mls @ 100 mls/hr IV Q24HR [facility] Stop: 07/29/18 15:43 Last Infusion: 06/02/18 15:45 Dose: Infused Vancomycin HCl 1.5 gm/ Sodium (Chloride) 500 mls @ 250 mls/hr IV Q12HR@1999 [facility] Stop: 07/31/18 19:59 Last Infusion: 06/03/18 10:05 Dose: Infused Ibuprofen (Motrin) 800 mg PO TID PRN PRN Reason: MILD TO MOD. PAIN Stop: 07/29/18 17:16 Last Admin: 06/01/18 07:03 Dose: 800 mg Miscellaneous (Vancomycin Iv Per Pharmacy) 1 ea MC PRN PRN PRN Reason: PROTOCOL Stop: 07/29/18 15:48 Morphine Sulfate (Morphine) 2 mg IV Q4HR PRN PRN Reason: Severe Pain Stop: 07/29/18 17:14 Last Admin: 06/03/18 08:07 Dose: 2 mg Ondansetron HCl (Zofran) 4 mg IV Q6H PRN PRN Reason: NAUSEA Stop: 07/29/18 17:29 Rivaroxaban (Xarelto) 15 mg PO BID [facility] Stop: 08/02/18 08:59 Last Admin: 06/03/18 08:07 Dose: 15 mg General: no acute distress, well developed, well nourished HEENT: atraumatic, normocephalic, PERRLA Neck: supple, no thyromegaly Cardiovascular: S1S2, regular Lungs: clear to auscultation bilaterally, clear to percussion Abdomen: soft, no tender, no distended Extremities: no cyanosis, no clubbing, no edema Infectious Disease Assmt/Plan - Assessment Assessment: 1. Pneumonmia. 2. PE. 3. DVT. - Plan Plan: Continue vanco IV , rocephin and zithromax.
[2018-06-03] MEDS: cefTRIAXone 1 GM in Sodium Chloride 0.9% 50 ML IV SCH (16:00)
--- NOTE | 2018-06-03 20:42 | General Progress Note ---
Subjective - Review of Systems Service Date: 06/03/18 Subjective: Patient seen and examined doing fine he reported that his chest pain is stable with current pain regimen denied shortness of breath Objective - Results Result Diagrams: 06/03/18 04:15 05/30/18 10:00 Recent Labs: Laboratory Last Values WBC 6.1 Th/cmm (4.8-10.8) 06/03/18 04:15 RBC 3.93 Mil/cmm (4.30-5.70) L 06/03/18 04:15 Hgb 12.0 gm/dL (12-16) 06/03/18 04:15 Hct 35.2 % (41.0-60) L 06/03/18 04:15 MCV 89.4 fl (80-99) 06/03/18 04:15 MCH 30.4 pg (26.0-30.0) H 06/03/18 04:15 MCHC Differential 34.0 pg (28.0-36.0) 06/03/18 04:15 RDW 13.3 % (11.5-20.0) 06/03/18 04:15 Plt Count 318 Th/cmm (150-400) 06/03/18 04:15 MPV 7.7 fl 06/03/18 04:15 Add Manual Diff YES 06/03/18 04:15 Neutrophils % 65.7 % (40.0-80.0) 06/01/18 15:05 Band Neutrophils % 1 % (0-10) 06/03/18 04:15 Lymphocytes % 18.7 % (20.0-50.0) L 06/01/18 15:05 Monocytes % 12.7 % (2.0-10.0) H 06/01/18 15:05 Eosinophils % 2.0 % (0.0-5.0) 06/01/18 15:05 Basophils % 0.9 % (0.0-2.0) 06/01/18 15:05 Neutrophils (Manual) 73 % (40-80) 06/03/18 04:15 Lymphocytes 15 % (20-50) L 06/03/18 04:15 Monocytes 5 % (2-10) 06/03/18 04:15 Eosinophils 1 % (0-5) 06/03/18 04:15 Atypical Lymphocytes 5 % 06/03/18 04:15 Platelet Estimate ADEQUATE (NORMAL) 06/03/18 04:15 PT 10.0 SECONDS (9.5-11.5) 05/30/18 10:00 INR 0.96 (0.5-1.4) 05/30/18 10:00 PTT (Actin FS) 25.4 SECONDS (26.0-38.0) L 05/30/18 10:00 D-Dimer 1240 ng/mL (100-400) H 05/30/18 10:00 Sodium 134 mEq/L (136-145) L 05/30/18 10:00 Potassium 4.1 mEq/L (3.5-5.1) 05/30/18 10:00 Chloride 104 mEq/L (98-107) 05/30/18 10:00 Carbon Dioxide 23.0 mEq/L (21.0-31.0) 05/30/18 10:00 Anion Gap 11.1 (7.0-16.0) 05/30/18 10:00 BUN 12 mg/dL (7-25) 05/30/18 10:00 Creatinine 0.8 mg/dL (0.7-1.3) 05/30/18 10:00 Est GFR ( Amer) > 60.0 ml/min (>90) 05/30/18 10:00 Est GFR (Non-Af Amer) > 60.0 ml/min 05/30/18 10:00 BUN/Creatinine Ratio 15.0 05/30/18 10:00 Glucose 145 mg/dL (70-105) H 05/30/18 10:00 POC Glucose 100 MG/DL (70 - 105) 05/30/18 16:22 Calcium 8.4 mg/dL (8.6-10.3) L 05/30/18 10:00 Troponin I < 0.01 ng/mL (0.01-0.05) L 05/30/18 10:13 Vancomycin Trough 9.8 ug/mL (5-10) 06/01/18 15:05 - Physical Exam Vitals and I&O: Vital Signs Temp 97.6 F 06/03/18 16:15 Pulse 92 06/03/18 16:15 Resp 17 06/03/18 16:15 BP 134/74 06/03/18 16:15 Pulse Ox 98 06/03/18 16:15 Intake & Output 06/03/18 06/03/18 06/04/18 06:59 18:59 06:59 Intake Total 900 1400 Output Total 800 650 Balance 100 750 Weight (lbs) 87.09 kg 87.09 kg Intake: Intake, IV Amount 500 800 Azithromycin 500 mg In 250 Sodium Chloride 0.9% 250 ml @ 250 mls/hr IV DAILY [facility] Rx#:[id number] Vancomycin HCl 1.5 gm In 500 500 Sodium Chloride 0.9% 500 ml @ 250 mls/hr IV Q12HR@ 799,1999 [facility] Rx#: [id number] cefTRIAXone 1 gm In 50 Sodium Chloride 0.9% 50 ml @ 100 mls/hr IV Q24HR [facility] Rx#:[id number] Oral 400 600 Output: Urine 800 650 Other: # Bowel Movements 0 Weight Source Bedscale Bedscale Active Medications: Current Medications Acetaminophen (Tylenol Extra Strength) 500 mg PO Q6HR PRN PRN Reason: FEVER Stop: 07/29/18 17:21 Last Admin: 06/01/18 20:26 Dose: 500 mg Albuterol/Ipratropium (Duoneb Neb) 3 ml HHN Q6HRT [facility] Stop: 07/31/18 18:59 Last Admin: 06/03/18 19:30 Dose: Not Given Azithromycin 500 mg/ Sodium (Chloride) 250 mls @ 250 mls/hr IV DAILY [facility] Stop: 07/30/18 08:59 Last Infusion: 06/03/18 12:05 Dose: Infused Ceftriaxone Sodium 1 gm/ (Sodium Chloride) 50 mls @ 100 mls/hr IV Q24HR [facility] Stop: 07/29/18 15:43 Last Infusion: 06/03/18 16:30 Dose: Infused Vancomycin HCl 1.5 gm/ Sodium (Chloride) 500 mls @ 250 mls/hr IV Q12HR@1999 [facility] Stop: 07/31/18 19:59 Last Admin: 06/03/18 20:06 Dose: 250 mls/hr Ibuprofen (Motrin) 800 mg PO TID PRN PRN Reason: MILD TO MOD. PAIN Stop: 07/29/18 17:16 Last Admin: 06/01/18 07:03 Dose: 800 mg Miscellaneous (Vancomycin Iv Per Pharmacy) 1 ea MC PRN PRN PRN Reason: PROTOCOL Stop: 07/29/18 15:48 Morphine Sulfate (Morphine) 2 mg IV Q4HR PRN PRN Reason: Severe Pain Stop: 07/29/18 17:14 Last Admin: 06/03/18 17:40 Dose: 2 mg Ondansetron HCl (Zofran) 4 mg IV Q6H PRN PRN Reason: NAUSEA Stop: 07/29/18 17:29 Rivaroxaban (Xarelto) 15 mg PO BID [facility] Stop: 08/02/18 08:59 Last Admin: 06/03/18 17:40 Dose: 15 mg General: Alert Cardiovascular: Regular rate Lungs: Clear to auscultation Extremities: no Edema Assessment/Plan - Assessment Assessment: Bilateral PE pneumonia Right UE DVT - Plan Plan: Pulmonary scheduled patient for thoracentesis patient is aware about the plan of care Continue anticoagulation Continue antibiotics Morphine prn Plan of care discussed with the patient Nutritional Asmnt/Malnutr-PDOC - Dietary Evaluation Malnutrition Findings (Please click <Entered> for more info): Nutritional Asmnt/Malnutrition Start: 06/03/18 11: 57 Text: Status: Complete Freq: Protocol: Document 06/03/18 12:44 LCHARJITG (Rec: 06/03/18 12:48 [email or web address] [email or web address]) Nutritional Asmnt/Malnutrition Patient General Information Nutritional Screening Moderate Risk Pertinent Medical Hx/Surgical Hx no sig medical hx, appendectomy, smokes about 15 cigarettes a day Subjective Information Pt seen lying in bed at time of visit, stating appetite so so. Pt consumed few breakfast today, has no food preference to give. Per EMR, PO intake 25 -50%. Per nurse, pt has DVT to right arm. Current Diet Order/ Nutrition Support regular Pertinent Medications vancomycin Pertinent Labs 05/30 Na 134, glucose 145, Ca 8. 4 Nutritional Hx/Data Height 1.83 m Height (Calculated Centimeters) 182.9 Current Weight (lbs) 87.09 kg Weight (Calculated Kilograms) 87.1 Weight (Calculated Grams) 50512.7 [place] Body Weight 178 Body Mass Index (BMI) 26.0 Weight Status Overweight GI Symptoms GI Symptoms None Last BM not indicated Difficult in: None Skin Integrity/Comment: intact Current %PO Poor (25-49%) Estimated Nutritional Goals BEE in Kcals: Using Current wt Calories/Kcals/Kg 25-30 based IBW 81kg Kcals Calculated 0100-7214 Protein: Using Current wt Protein g/k Protein Calculated 81 Fluid: ml 2024-243ml (1ml/kcal) Nutritional Problem 1. Problem Problem inadequate food intake Etiology decreased appetite Signs/Symptoms: PO intake 25-30% Malnutrition Alert Is there a minimum of two criteria No selected? Query Text:Check all the applicable criteria. A minimum of two criteria are recommended for diagnosis of either severe or non-severe malnutrition. Malnutrition Related to Morbid Obesity Malnutrition related to morbid obesity No Intervention/Recommendation Comments 1. Continue with current diet as ordered. Encouraged oral intake. 2. Monitor PO intake, wt, labs and skin integrity 3. F/U as moderate risk in 3-5 days, 06/06-06/08, PO check Expected Outcomes/Goals Expected Outcomes/Goals 1. PO intake to meet at least 75% of nutritional needs. 2. Wt stability, skin to remain intact, labs to approach WNL.
[2018-06-04] MEDS: Albuterol/Ipratropium Neb 3 ML AERS HHN SCH ×4 (00:11→19:43)
[2018-06-04] MEDS: Morphine Sulfate 2 mg/mL 1mL Syr IV PRN ×4 (06:00→20:21)
[2018-06-04] MEDS: Vancomycin HCl 1.5 GM in Sodium Chloride 0.9% 500 ML IV SCH ×2 (08:31→20:20)
[2018-06-04] MEDS ORDERED: Probiotic Screen MC PRN (09:45)
[2018-06-04] MEDS: Azithromycin 500 MG in Sodium Chloride 0.9% 250 ML IV SCH (11:17)
--- NOTE | 2018-06-04 15:02 | General Progress Note ---
Subjective - Review of Systems Service Date: 06/04/18 Subjective: less short of breath with chest pain Objective - Results Result Diagrams: 06/03/18 04:15 05/30/18 10:00 Recent Labs: Laboratory Last Values WBC 6.1 Th/cmm (4.8-10.8) 06/03/18 04:15 RBC 3.93 Mil/cmm (4.30-5.70) L 06/03/18 04:15 Hgb 12.0 gm/dL (12-16) 06/03/18 04:15 Hct 35.2 % (41.0-60) L 06/03/18 04:15 MCV 89.4 fl (80-99) 06/03/18 04:15 MCH 30.4 pg (26.0-30.0) H 06/03/18 04:15 MCHC Differential 34.0 pg (28.0-36.0) 06/03/18 04:15 RDW 13.3 % (11.5-20.0) 06/03/18 04:15 Plt Count 318 Th/cmm (150-400) 06/03/18 04:15 MPV 7.7 fl 06/03/18 04:15 Add Manual Diff YES 06/03/18 04:15 Neutrophils % 65.7 % (40.0-80.0) 06/01/18 15:05 Band Neutrophils % 1 % (0-10) 06/03/18 04:15 Lymphocytes % 18.7 % (20.0-50.0) L 06/01/18 15:05 Monocytes % 12.7 % (2.0-10.0) H 06/01/18 15:05 Eosinophils % 2.0 % (0.0-5.0) 06/01/18 15:05 Basophils % 0.9 % (0.0-2.0) 06/01/18 15:05 Neutrophils (Manual) 73 % (40-80) 06/03/18 04:15 Lymphocytes 15 % (20-50) L 06/03/18 04:15 Monocytes 5 % (2-10) 06/03/18 04:15 Eosinophils 1 % (0-5) 06/03/18 04:15 Atypical Lymphocytes 5 % 06/03/18 04:15 Platelet Estimate ADEQUATE (NORMAL) 06/03/18 04:15 PT 10.0 SECONDS (9.5-11.5) 05/30/18 10:00 INR 0.96 (0.5-1.4) 05/30/18 10:00 PTT (Actin FS) 25.4 SECONDS (26.0-38.0) L 05/30/18 10:00 D-Dimer 1240 ng/mL (100-400) H 05/30/18 10:00 Sodium 134 mEq/L (136-145) L 05/30/18 10:00 Potassium 4.1 mEq/L (3.5-5.1) 05/30/18 10:00 Chloride 104 mEq/L (98-107) 05/30/18 10:00 Carbon Dioxide 23.0 mEq/L (21.0-31.0) 05/30/18 10:00 Anion Gap 11.1 (7.0-16.0) 05/30/18 10:00 BUN 12 mg/dL (7-25) 05/30/18 10:00 Creatinine 0.8 mg/dL (0.7-1.3) 05/30/18 10:00 Est GFR ( Amer) > 60.0 ml/min (>90) 05/30/18 10:00 Est GFR (Non-Af Amer) > 60.0 ml/min 05/30/18 10:00 BUN/Creatinine Ratio 15.0 05/30/18 10:00 Glucose 145 mg/dL (70-105) H 05/30/18 10:00 POC Glucose 100 MG/DL (70 - 105) 05/30/18 16:22 Calcium 8.4 mg/dL (8.6-10.3) L 05/30/18 10:00 Troponin I < 0.01 ng/mL (0.01-0.05) L 05/30/18 10:13 Vancomycin Trough 9.8 ug/mL (5-10) 06/01/18 15:05 - Physical Exam Vitals and I&O: Vital Signs Temp 97.5 F 06/04/18 11:37 Pulse 90 06/04/18 13:10 Resp 18 06/04/18 13:10 BP 102/60 06/04/18 11:37 Pulse Ox 95 06/04/18 13:10 Intake & Output 06/03/18 06/04/1818 18:59 06:59 18:59 Intake Total 1400 980 750 Output Total 650 550 Balance 750 430 750 Weight (lbs) 87.09 kg 87.09 kg Intake: Intake, IV Amount 800 500 750 Azithromycin 500 mg In 250 250 Sodium Chloride 0.9% 250 ml @ 250 mls/hr IV DAILY [facility] Rx#:[id number] Vancomycin HCl 1.5 gm In 500 500 500 Sodium Chloride 0.9% 500 ml @ 250 mls/hr IV Q12HR@ 799,1999 [facility] Rx#: [id number] cefTRIAXone 1 gm In 50 Sodium Chloride 0.9% 50 ml @ 100 mls/hr IV Q24HR [facility] Rx#:[id number] Oral 600 480 Output: Urine 650 550 Other: Weight Source Bedscale Bedscale Active Medications: Current Medications Acetaminophen (Tylenol Extra Strength) 500 mg PO Q6HR PRN PRN Reason: FEVER Stop: 07/29/18 17:21 Last Admin: 06/01/18 20:26 Dose: 500 mg Albuterol/Ipratropium (Duoneb Neb) 3 ml HHN Q6HRT [facility] Stop: 07/31/18 18:59 Last Admin: 06/04/18 13:10 Dose: 3 ml Azithromycin 500 mg/ Sodium (Chloride) 250 mls @ 250 mls/hr IV DAILY [facility] Stop: 07/30/18 08:59 Last Infusion: 06/04/18 12:15 Dose: Infused Ceftriaxone Sodium 1 gm/ (Sodium Chloride) 50 mls @ 100 mls/hr IV Q24HR [facility] Stop: 07/29/18 15:43 Last Infusion: 06/03/18 16:30 Dose: Infused Vancomycin HCl 1.5 gm/ Sodium (Chloride) 500 mls @ 250 mls/hr IV Q12HR@1999 [facility] Stop: 07/31/18 19:59 Last Infusion: 06/04/18 10:30 Dose: Infused Ibuprofen (Motrin) 800 mg PO TID PRN PRN Reason: MILD TO MOD. PAIN Stop: 07/29/18 17:16 Last Admin: 06/01/18 07:03 Dose: 800 mg Lactobacillus Rhamnosus (Culturelle 15b) 1 each PO DAILY [facility] Stop: 08/04/18 08:59 Miscellaneous (Vancomycin Iv Per Pharmacy) 1 ea MC PRN PRN PRN Reason: PROTOCOL Stop: 07/29/18 15:48 Miscellaneous (Probiotic Screen) 1 ea MC PRN PRN PRN Reason: PROTOCOL Stop: 08/03/18 09:44 Morphine Sulfate (Morphine) 2 mg IV Q4HR PRN PRN Reason: Severe Pain Stop: 07/29/18 17:14 Last Admin: 06/04/18 11:17 Dose: 2 mg Ondansetron HCl (Zofran) 4 mg IV Q6H PRN PRN Reason: NAUSEA Stop: 07/29/18 17:29 Rivaroxaban (Xarelto) 15 mg PO BID [facility] Stop: 08/02/18 08:59 Last Admin: 06/04/18 08:31 Dose: 15 mg General: Alert HEENT: Atraumatic Neck: Supple Cardiovascular: Regular rate Lungs: Clear to auscultation Abdomen: Soft Extremities: no Edema Assessment/Plan - Assessment Assessment: * right lung consolidation and effusion * multiple bilateral pulmonary emboli * right upper ext thrombosis Continue eliquis and antibiotics and follow imaging for resolution; Continue iv antibiotics may need bronchoscopy/biopsy if no resolution Nutritional Asmnt/Malnutr-PDOC - Dietary Evaluation Malnutrition Findings (Please click <Entered> for more info): Nutritional Asmnt/Malnutrition Start: 06/03/18 11: 57 Text: Status: Complete Freq: Protocol: Document 06/03/18 12:44 ELEONORA (Rec: 06/03/18 12:48 ELEONORA [email or web address]) Nutritional Asmnt/Malnutrition Patient General Information Nutritional Screening Moderate Risk Pertinent Medical Hx/Surgical Hx no sig medical hx, appendectomy, smokes about 15 cigarettes a day Subjective Information Pt seen lying in bed at time of visit, stating appetite so so. Pt consumed few breakfast today, has no food preference to give. Per EMR, PO intake 25 -50%. Per nurse, pt has DVT to right arm. Current Diet Order/ Nutrition Support regular Pertinent Medications vancomycin Pertinent Labs 05/30 Na 134, glucose 145, Ca 8. 4 Nutritional Hx/Data Height 1.83 m Height (Calculated Centimeters) 182.9 Current Weight (lbs) 87.09 kg Weight (Calculated Kilograms) 87.1 Weight (Calculated Grams) 22742.7 [place] Body Weight 178 Body Mass Index (BMI) 26.0 Weight Status Overweight GI Symptoms GI Symptoms None Last BM not indicated Difficult in: None Skin Integrity/Comment: intact Current %PO Poor (25-49%) Estimated Nutritional Goals BEE in Kcals: Using Current wt Calories/Kcals/Kg 25-30 based IBW 81kg Kcals Calculated 6288-2949 Protein: Using Current wt Protein g/k Protein Calculated 81 Fluid: ml 2024-243ml (1ml/kcal) Nutritional Problem 1. Problem Problem inadequate food intake Etiology decreased appetite Signs/Symptoms: PO intake 25-30% Malnutrition Alert Is there a minimum of two criteria No selected? Query Text:Check all the applicable criteria. A minimum of two criteria are recommended for diagnosis of either severe or non-severe malnutrition. Malnutrition Related to Morbid Obesity Malnutrition related to morbid obesity No Intervention/Recommendation Comments 1. Continue with current diet as ordered. Encouraged oral intake. 2. Monitor PO intake, wt, labs and skin integrity 3. F/U as moderate risk in 3-5 days, 06/06-06/08, PO check Expected Outcomes/Goals Expected Outcomes/Goals 1. PO intake to meet at least 75% of nutritional needs. 2. Wt stability, skin to remain intact, labs to approach WNL.
[2018-06-04] MEDS: cefTRIAXone 1 GM in Sodium Chloride 0.9% 50 ML IV SCH (15:29)
--- NOTE | 2018-06-04 17:23 | General Progress Note ---
Subjective - Review of Systems Service Date: 06/04/18 Subjective: Patient doing fine no new concern reported Objective - Results Result Diagrams: 06/03/18 04:15 05/30/18 10:00 Recent Labs: Laboratory Last Values WBC 6.1 Th/cmm (4.8-10.8) 06/03/18 04:15 RBC 3.93 Mil/cmm (4.30-5.70) L 06/03/18 04:15 Hgb 12.0 gm/dL (12-16) 06/03/18 04:15 Hct 35.2 % (41.0-60) L 06/03/18 04:15 MCV 89.4 fl (80-99) 06/03/18 04:15 MCH 30.4 pg (26.0-30.0) H 06/03/18 04:15 MCHC Differential 34.0 pg (28.0-36.0) 06/03/18 04:15 RDW 13.3 % (11.5-20.0) 06/03/18 04:15 Plt Count 318 Th/cmm (150-400) 06/03/18 04:15 MPV 7.7 fl 06/03/18 04:15 Add Manual Diff YES 06/03/18 04:15 Neutrophils % 65.7 % (40.0-80.0) 06/01/18 15:05 Band Neutrophils % 1 % (0-10) 06/03/18 04:15 Lymphocytes % 18.7 % (20.0-50.0) L 06/01/18 15:05 Monocytes % 12.7 % (2.0-10.0) H 06/01/18 15:05 Eosinophils % 2.0 % (0.0-5.0) 06/01/18 15:05 Basophils % 0.9 % (0.0-2.0) 06/01/18 15:05 Neutrophils (Manual) 73 % (40-80) 06/03/18 04:15 Lymphocytes 15 % (20-50) L 06/03/18 04:15 Monocytes 5 % (2-10) 06/03/18 04:15 Eosinophils 1 % (0-5) 06/03/18 04:15 Atypical Lymphocytes 5 % 06/03/18 04:15 Platelet Estimate ADEQUATE (NORMAL) 06/03/18 04:15 PT 10.0 SECONDS (9.5-11.5) 05/30/18 10:00 INR 0.96 (0.5-1.4) 05/30/18 10:00 PTT (Actin FS) 25.4 SECONDS (26.0-38.0) L 05/30/18 10:00 D-Dimer 1240 ng/mL (100-400) H 05/30/18 10:00 Sodium 134 mEq/L (136-145) L 05/30/18 10:00 Potassium 4.1 mEq/L (3.5-5.1) 05/30/18 10:00 Chloride 104 mEq/L (98-107) 05/30/18 10:00 Carbon Dioxide 23.0 mEq/L (21.0-31.0) 05/30/18 10:00 Anion Gap 11.1 (7.0-16.0) 05/30/18 10:00 BUN 12 mg/dL (7-25) 05/30/18 10:00 Creatinine 0.8 mg/dL (0.7-1.3) 05/30/18 10:00 Est GFR ( Amer) > 60.0 ml/min (>90) 05/30/18 10:00 Est GFR (Non-Af Amer) > 60.0 ml/min 05/30/18 10:00 BUN/Creatinine Ratio 15.0 05/30/18 10:00 Glucose 145 mg/dL (70-105) H 05/30/18 10:00 POC Glucose 100 MG/DL (70 - 105) 05/30/18 16:22 Calcium 8.4 mg/dL (8.6-10.3) L 05/30/18 10:00 Troponin I < 0.01 ng/mL (0.01-0.05) L 05/30/18 10:13 Vancomycin Trough 9.8 ug/mL (5-10) 06/01/18 15:05 - Physical Exam Vitals and I&O: Vital Signs Temp 97.8 F 06/04/18 15:45 Pulse 90 06/04/18 15:45 Resp 20 06/04/18 16:33 BP 113/80 06/04/18 15:45 Pulse Ox 98 06/04/18 15:45 Intake & Output 06/03/18 06/04/1818 18:59 06:59 18:59 Intake Total 1400 980 800 Output Total 650 550 Balance 750 430 800 Weight (lbs) 87.09 kg 87.09 kg Intake: Intake, IV Amount 800 500 800 Azithromycin 500 mg In 250 250 Sodium Chloride 0.9% 250 ml @ 250 mls/hr IV DAILY [facility] Rx#:[id number] Vancomycin HCl 1.5 gm In 500 500 500 Sodium Chloride 0.9% 500 ml @ 250 mls/hr IV Q12HR@ [facility] Rx#: [id number] cefTRIAXone 1 gm In 50 50 Sodium Chloride 0.9% 50 ml @ 100 mls/hr IV Q24HR [facility] Rx#:[id number] Oral 600 480 Output: Urine 650 550 Other: Weight Source Bedscale Bedscale Active Medications: Current Medications Acetaminophen (Tylenol Extra Strength) 500 mg PO Q6HR PRN PRN Reason: FEVER Stop: 07/29/18 17:21 Last Admin: 06/01/18 20:26 Dose: 500 mg Albuterol/Ipratropium (Duoneb Neb) 3 ml HHN Q6HRT [facility] Stop: 07/31/18 18:59 Last Admin: 06/04/18 13:10 Dose: 3 ml Azithromycin 500 mg/ Sodium (Chloride) 250 mls @ 250 mls/hr IV DAILY [facility] Stop: 07/30/18 08:59 Last Infusion: 06/04/18 12:15 Dose: Infused Ceftriaxone Sodium 1 gm/ (Sodium Chloride) 50 mls @ 100 mls/hr IV Q24HR [facility] Stop: 07/29/18 15:43 Last Infusion: 06/04/18 16:00 Dose: Infused Vancomycin HCl 1.5 gm/ Sodium (Chloride) 500 mls @ 250 mls/hr IV Q12HR@1999 [facility] Stop: 07/31/18 19:59 Last Infusion: 06/04/18 10:30 Dose: Infused Ibuprofen (Motrin) 800 mg PO TID PRN PRN Reason: MILD TO MOD. PAIN Stop: 07/29/18 17:16 Last Admin: 06/01/18 07:03 Dose: 800 mg Lactobacillus Rhamnosus (Culturelle 15b) 1 each PO DAILY [facility] Stop: 08/04/18 08:59 Miscellaneous (Vancomycin Iv Per Pharmacy) 1 ea MC PRN PRN PRN Reason: PROTOCOL Stop: 07/29/18 15:48 Miscellaneous (Probiotic Screen) 1 ea MC PRN PRN PRN Reason: PROTOCOL Stop: 08/03/18 09:44 Morphine Sulfate (Morphine) 2 mg IV Q4HR PRN PRN Reason: Severe Pain Stop: 07/29/18 17:14 Last Admin: 06/04/18 15:30 Dose: 2 mg Ondansetron HCl (Zofran) 4 mg IV Q6H PRN PRN Reason: NAUSEA Stop: 07/29/18 17:29 Rivaroxaban (Xarelto) 15 mg PO BID [facility] Stop: 08/02/18 08:59 Last Admin: 06/04/18 16:35 Dose: Not Given General: Alert Cardiovascular: Regular rate Lungs: Clear to auscultation Abdomen: Soft Extremities: no Edema Assessment/Plan - Assessment Assessment: Bilateral PE pneumonia Right UE DVT - Plan Plan: Pulmonary scheduled patient for thoracentesis patient is aware about the plan of care Hold anticoagulation for the procedure tomorrow Hematology on board Continue antibiotics Morphine prn Plan of care discussed with the patient Nutritional Asmnt/Malnutr-PDOC - Dietary Evaluation Malnutrition Findings (Please click <Entered> for more info): Nutritional Asmnt/Malnutrition Start: 06/03/18 11: 57 Text: Status: Complete Freq: Protocol: Document 06/03/18 12:44 KIMBERLYG (Rec: 06/03/18 12:48 [email or web address] [email or web address]) Nutritional Asmnt/Malnutrition Patient General Information Nutritional Screening Moderate Risk Pertinent Medical Hx/Surgical Hx no sig medical hx, appendectomy, smokes about 15 cigarettes a day Subjective Information Pt seen lying in bed at time of visit, stating appetite so so. Pt consumed few breakfast today, has no food preference to give. Per EMR, PO intake 25 -50%. Per nurse, pt has DVT to right arm. Current Diet Order/ Nutrition Support regular Pertinent Medications vancomycin Pertinent Labs 05/30 Na 134, glucose 145, Ca 8. 4 Nutritional Hx/Data Height 1.83 m Height (Calculated Centimeters) 182.9 Current Weight (lbs) 87.09 kg Weight (Calculated Kilograms) 87.1 Weight (Calculated Grams) 22665.7 [place] Body Weight 178 Body Mass Index (BMI) 26.0 Weight Status Overweight GI Symptoms GI Symptoms None Last BM not indicated Difficult in: None Skin Integrity/Comment: intact Current %PO Poor (25-49%) Estimated Nutritional Goals BEE in Kcals: Using Current wt Calories/Kcals/Kg 25-30 based IBW 81kg Kcals Calculated 8946-2295 Protein: Using Current wt Protein g/k Protein Calculated 81 Fluid: ml 2024-243ml (1ml/kcal) Nutritional Problem 1. Problem Problem inadequate food intake Etiology decreased appetite Signs/Symptoms: PO intake 25-30% Malnutrition Alert Is there a minimum of two criteria No selected? Query Text:Check all the applicable criteria. A minimum of two criteria are recommended for diagnosis of either severe or non-severe malnutrition. Malnutrition Related to Morbid Obesity Malnutrition related to morbid obesity No Intervention/Recommendation Comments 1. Continue with current diet as ordered. Encouraged oral intake. 2. Monitor PO intake, wt, labs and skin integrity 3. F/U as moderate risk in 3-5 days, 06/06-06/08, PO check Expected Outcomes/Goals Expected Outcomes/Goals 1. PO intake to meet at least 75% of nutritional needs. 2. Wt stability, skin to remain intact, labs to approach WNL.
[2018-06-05] MEDS: Albuterol/Ipratropium Neb 3 ML AERS HHN SCH ×4 (00:13→18:40)
[2018-06-05] MEDS: Morphine Sulfate 2 mg/mL 1mL Syr IV PRN ×5 (00:59→23:54)
[2018-06-05] MEDS: Acetaminophen 500 MG TAB PO PRN (06:04)
[2018-06-05 08:35] LABS: INR 1.04 (0.5-1.4); PROTHROMBIN TIME (TEST) 10.8 SECONDS (9.5-11.5)
[2018-06-05 08:51] LABS: ANION GAP 11.5 (7.0-16.0); BUN - UREA NITROGEN 8 mg/dL (7-25); CALCIUM SERUM 8.2 mg/dL (8.6-10.3); CARBON DIOXIDE 25.2 mEq/L (21.0-31.0); CHLORIDE 103 mEq/L (98-107); CREATININE - SERUM 0.7 mg/dL (0.7-1.3); GFR AFRICAN-AMERICAN > 60.0 ml/min (>90); GFR NON AFRICAN-AMERICAN > 60.0 ml/min; GLUCOSE 130 mg/dL (70-105); POTASSIUM SERUM 3.7 mEq/L (3.5-5.1); SODIUM SERUM 136 mEq/L (136-145)
[2018-06-05] MEDS: Azithromycin 500 MG in Sodium Chloride 0.9% 250 ML IV SCH (09:01)
[2018-06-05] MEDS: Lactobacillus Rhamnosus GG 15 Billion CFU CAP.SPRINK PO SCH (09:01)
[2018-06-05] MEDS: Vancomycin HCl 1.5 GM in Sodium Chloride 0.9% 500 ML IV SCH ×3 (09:52→17:28)
--- NOTE | 2018-06-05 11:09 | General Progress Note ---
Subjective - Review of Systems Service Date: 06/05/18 Subjective: light headed, still chest pain undergoing thoracentsis, bloody effusion Objective - Results Result Diagrams: 06/03/18 04:15 06/05/18 08:00 Recent Labs: Laboratory Last Values WBC 6.1 Th/cmm (4.8-10.8) 06/03/18 04:15 RBC 3.93 Mil/cmm (4.30-5.70) L 06/03/18 04:15 Hgb 12.0 gm/dL (12-16) 06/03/18 04:15 Hct 35.2 % (41.0-60) L 06/03/18 04:15 MCV 89.4 fl (80-99) 06/03/18 04:15 MCH 30.4 pg (26.0-30.0) H 06/03/18 04:15 MCHC Differential 34.0 pg (28.0-36.0) 06/03/18 04:15 RDW 13.3 % (11.5-20.0) 06/03/18 04:15 Plt Count 318 Th/cmm (150-400) 06/03/18 04:15 MPV 7.7 fl 06/03/18 04:15 Add Manual Diff YES 06/03/18 04:15 Neutrophils % 65.7 % (40.0-80.0) 06/01/18 15:05 Band Neutrophils % 1 % (0-10) 06/03/18 04:15 Lymphocytes % 18.7 % (20.0-50.0) L 06/01/18 15:05 Monocytes % 12.7 % (2.0-10.0) H 06/01/18 15:05 Eosinophils % 2.0 % (0.0-5.0) 06/01/18 15:05 Basophils % 0.9 % (0.0-2.0) 06/01/18 15:05 Neutrophils (Manual) 73 % (40-80) 06/03/18 04:15 Lymphocytes 15 % (20-50) L 06/03/18 04:15 Monocytes 5 % (2-10) 06/03/18 04:15 Eosinophils 1 % (0-5) 06/03/18 04:15 Atypical Lymphocytes 5 % 06/03/18 04:15 Platelet Estimate ADEQUATE (NORMAL) 06/03/18 04:15 PT 10.8 SECONDS (9.5-11.5) 06/05/18 08:00 INR 1.04 (0.5-1.4) 06/05/18 08:00 PTT (Actin FS) 28.2 SECONDS (26.0-38.0) 06/05/18 08:00 D-Dimer 1240 ng/mL (100-400) H 05/30/18 10:00 Sodium 136 mEq/L (136-145) 06/05/18 08:00 Potassium 3.7 mEq/L (3.5-5.1) 06/05/18 08:00 Chloride 103 mEq/L (98-107) 06/05/18 08:00 Carbon Dioxide 25.2 mEq/L (21.0-31.0) 06/05/18 08:00 Anion Gap 11.5 (7.0-16.0) 06/05/18 08:00 BUN 8 mg/dL (7-25) 06/05/18 08:00 Creatinine 0.7 mg/dL (0.7-1.3) 06/05/18 08:00 Est GFR ( Amer) > 60.0 ml/min (>90) 06/05/18 08:00 Est GFR (Non-Af Amer) > 60.0 ml/min 06/05/18 08:00 BUN/Creatinine Ratio 11.4 06/05/18 08:00 Glucose 130 mg/dL (70-105) H 06/05/18 08:00 POC Glucose 100 MG/DL (70 - 105) 05/30/18 16:22 Calcium 8.2 mg/dL (8.6-10.3) L 06/05/18 08:00 Troponin I < 0.01 ng/mL (0.01-0.05) L 05/30/18 10:13 Vancomycin Trough 8.8 ug/mL (5-10) 06/05/18 08:00 - Physical Exam Vitals and I&O: Vital Signs Temp 98.2 F 06/05/18 08:00 Pulse 90 06/05/18 08:00 Resp 18 06/05/18 08:00 BP 113/62 06/05/18 08:00 Pulse Ox 96 06/05/18 08:00 Intake & Output 06/04/18 06/05/18 06/05/18 18:59 06:59 18:59 Intake Total 1450 740 Output Total 750 500 Balance 700 240 Weight (lbs) 87.09 kg 87.09 kg Intake: Intake, IV Amount 800 500 Azithromycin 500 mg In 250 Sodium Chloride 0.9% 250 ml @ 250 mls/hr IV DAILY [facility] Rx#:[id number] Vancomycin HCl 1.5 gm In 500 500 Sodium Chloride 0.9% 500 ml @ 250 mls/hr IV Q12HR@ 0800,1999 [facility] Rx#: [id number] cefTRIAXone 1 gm In 50 Sodium Chloride 0.9% 50 ml @ 100 mls/hr IV Q24HR [facility] Rx#:[id number] Oral 650 240 Output: Urine 750 500 Other: Weight Source Bedscale Bedscale Active Medications: Current Medications Acetaminophen (Tylenol Extra Strength) 500 mg PO Q6HR PRN PRN Reason: FEVER Stop: 07/29/18 17:21 Last Admin: 06/05/18 06:04 Dose: 500 mg Albuterol/Ipratropium (Duoneb Neb) 3 ml HHN Q6HRT [facility] Stop: 07/31/18 18:59 Last Admin: 06/05/18 06:58 Dose: 3 ml Azithromycin 500 mg/ Sodium (Chloride) 250 mls @ 250 mls/hr IV DAILY [facility] Stop: 07/30/18 08:59 Last Admin: 06/05/18 09:01 Dose: 250 mls/hr Ceftriaxone Sodium 1 gm/ (Sodium Chloride) 50 mls @ 100 mls/hr IV Q24HR [facility] Stop: 07/29/18 15:43 Last Infusion: 06/04/18 16:00 Dose: Infused Vancomycin HCl 1.5 gm/ Sodium (Chloride) 500 mls @ 250 mls/hr IV Q12HR@799, 1999 [facility] Stop: 07/31/18 19:59 Last Admin: 06/05/18 09:52 Dose: Not Given Vancomycin HCl 1.5 gm/ Sodium (Chloride) 500 mls @ 250 mls/hr IV Q8H [facility] Stop: 08/04/18 09:59 Ibuprofen (Motrin) 800 mg PO TID PRN PRN Reason: MILD TO MOD. PAIN Stop: 07/29/18 17:16 Last Admin: 06/01/18 07:03 Dose: 800 mg Lactobacillus Rhamnosus (Culturelle 15b) 1 each PO DAILY [facility] Stop: 08/04/18 08:59 Last Admin: 06/05/18 09:01 Dose: 1 each Miscellaneous (Vancomycin Iv Per Pharmacy) 1 ea MC PRN PRN PRN Reason: PROTOCOL Stop: 07/29/18 15:48 Miscellaneous (Probiotic Screen) 1 ea MC PRN PRN PRN Reason: PROTOCOL Stop: 08/03/18 09:44 Morphine Sulfate (Morphine) 2 mg IV Q4HR PRN PRN Reason: Severe Pain Stop: 07/29/18 17:14 Last Admin: 06/05/18 06:04 Dose: 2 mg Ondansetron HCl (Zofran) 4 mg IV Q6H PRN PRN Reason: NAUSEA Stop: 07/29/18 17:29 Rivaroxaban (Xarelto) 15 mg PO BID [facility] Stop: 08/02/18 08:59 Last Admin: 06/05/18 09:02 Dose: Not Given General: Alert HEENT: Atraumatic Neck: Supple Cardiovascular: Regular rate Lungs: Clear to auscultation Abdomen: Soft Extremities: no Edema Assessment/Plan - Assessment Assessment: * right lung consolidation and effusion * multiple bilateral pulmonary emboli * right upper ext thrombosis Continue eliquis and antibiotics and follow imaging for resolution; Continue iv antibiotics. 06/05: undergoing thoracentesis; last Eliquis was 24hrs ago, I'll give Kcentra to reverse Eliquis. may need bronchoscopy/biopsy if no resolution Nutritional Asmnt/Malnutr-PDOC - Dietary Evaluation Malnutrition Findings (Please click <Entered> for more info): Nutritional Asmnt/Malnutrition Start: 06/03/18 11: 57 Text: Status: Complete Freq: Protocol: Document 06/03/18 12:44 LCHENG (Rec: 06/03/18 12:48 [email or web address] [email or web address]) Nutritional Asmnt/Malnutrition Patient General Information Nutritional Screening Moderate Risk Pertinent Medical Hx/Surgical Hx no sig medical hx, appendectomy, smokes about 15 cigarettes a day Subjective Information Pt seen lying in bed at time of visit, stating appetite so so. Pt consumed few breakfast today, has no food preference to give. Per EMR, PO intake 25 -50%. Per nurse, pt has DVT to right arm. Current Diet Order/ Nutrition Support regular Pertinent Medications vancomycin Pertinent Labs 05/30 Na 134, glucose 145, Ca 8. 4 Nutritional Hx/Data Height 1.83 m Height (Calculated Centimeters) 182.9 Current Weight (lbs) 87.09 kg Weight (Calculated Kilograms) 87.1 Weight (Calculated Grams) 25305.7 [place] Body Weight 178 Body Mass Index (BMI) 26.0 Weight Status Overweight GI Symptoms GI Symptoms None Last BM not indicated Difficult in: None Skin Integrity/Comment: intact Current %PO Poor (25-49%) Estimated Nutritional Goals BEE in Kcals: Using Current wt Calories/Kcals/Kg 25-30 based IBW 81kg Kcals Calculated 0839-0979 Protein: Using Current wt Protein g/k Protein Calculated 81 Fluid: ml 2024-243ml (1ml/kcal) Nutritional Problem 1. Problem Problem inadequate food intake Etiology decreased appetite Signs/Symptoms: PO intake 25-30% Malnutrition Alert Is there a minimum of two criteria No selected? Query Text:Check all the applicable criteria. A minimum of two criteria are recommended for diagnosis of either severe or non-severe malnutrition. Malnutrition Related to Morbid Obesity Malnutrition related to morbid obesity No Intervention/Recommendation Comments 1. Continue with current diet as ordered. Encouraged oral intake. 2. Monitor PO intake, wt, labs and skin integrity 3. F/U as moderate risk in 3-5 days, 06/06-06/08, PO check Expected Outcomes/Goals Expected Outcomes/Goals 1. PO intake to meet at least 75% of nutritional needs. 2. Wt stability, skin to remain intact, labs to approach WNL.
[2018-06-05 11:51] LABS: HEMATOCRIT 33.9 % (41.0-60); HEMOGLOBIN 11.6 gm/dL (12-16); MEAN CELL VOLUME 89.3 fl (80-99); MEAN CORPUSCULAR HEMOGLOBIN 30.6 pg (26.0-30.0); MEAN CORPUSCULAR HGB CONC 34.3 pg (28.0-36.0); MEAN PLATELET VOLUME 7.9 fl; PLATELET COUNT 300 Th/cmm (150-400); WHITE BLOOD COUNT 5.7 Th/cmm (4.8-10.8)
--- NOTE | 2018-06-05 12:11 | Diagnostic Imaging Report ---
Ultrasound-guided right thoracentesis HISTORY: Right pleural effusion COMPARISON: Chest x-ray 06/02/2018 Technique/procedure: Informed consent was obtained and sterile techniques were utilized. Using ultrasound guidance 1.5 liters of sanguinous fluid was drained from the right pleural space and sent to the laboratory for analysis. The patient tolerated the procedure without any immediate complications. IMPRESSION: Successful right ultrasound-guided thoracentesis as above.
--- NOTE | 2018-06-05 12:14 | Diagnostic Imaging Report ---
CHEST X-RAY: AP view INDICATION: Right-sided thoracentesis, rule out pneumothorax COMPARISON: Chest x-ray 06/02/2018 FINDINGS: There has been decrease in size of right pleural effusion. Pleural fluid is seen along the right apex. Right lung infiltrates are noted. Small left effusion is noted with left basal infiltrates. No evidence of pneumothorax. IMPRESSION: Interval decrease in size of right pleural effusion. No evidence of pneumothorax There may be a loculated right apical pleural fluid. Please also refer to recent CT PE study examination demonstrating consolidation of the right upper lobe. Additional right lung infiltrates and left basal infiltrates and small left effusion.
[2018-06-05 12:15] LABS: BAND NEUTROPHILE 0 % (0-10); BASOPHIL 0 % (0-3); EOSINOPHIL 1 % (0-5); LYMPHOCYTE 18 % (20-50); MONOCYTE 8 % (2-10); NEUTROPHILS 73 % (40-80)
--- NOTE | 2018-06-05 13:59 | Infectious Disease Prog Note ---
Infectious Disease Subjective - Review of Systems Service Date: 06/05/18 Subjective: There is no new change, low grade fevers. no chills. no SOB. Infectious Disease Objective - Results Result Diagrams: 06/05/18 08:00 06/05/18 08:00 Recent Labs: Laboratory Last Values WBC 5.7 Th/cmm (4.8-10.8) 06/05/18 08:00 RBC 3.80 Mil/cmm (4.30-5.70) L 06/05/18 08:00 Hgb 11.6 gm/dL (12-16) L 06/05/18 08:00 Hct 33.9 % (41.0-60) L 06/05/18 08:00 MCV 89.3 fl (80-99) 06/05/18 08:00 MCH 30.6 pg (26.0-30.0) H 06/05/18 08:00 MCHC Differential 34.3 pg (28.0-36.0) 06/05/18 08:00 RDW 13.0 % (11.5-20.0) 06/05/18 08:00 Plt Count 300 Th/cmm (150-400) 06/05/18 08:00 MPV 7.9 fl 06/05/18 08:00 Add Manual Diff YES 06/05/18 08:00 Neutrophils % 65.7 % (40.0-80.0) 06/01/18 15:05 Band Neutrophils % 0 % (0-10) 06/05/18 08:00 Lymphocytes % 18.7 % (20.0-50.0) L 06/01/18 15:05 Monocytes % 12.7 % (2.0-10.0) H 06/01/18 15:05 Eosinophils % 2.0 % (0.0-5.0) 06/01/18 15:05 Basophils % 0.9 % (0.0-2.0) 06/01/18 15:05 Neutrophils (Manual) 73 % (40-80) 06/05/18 08:00 Lymphocytes 18 % (20-50) L 06/05/18 08:00 Monocytes 8 % (2-10) 06/05/18 08:00 Eosinophils 1 % (0-5) 06/05/18 08:00 Basophils 0 % (0-3) 06/05/18 08:00 Atypical Lymphocytes 5 % 06/03/18 04:15 Platelet Estimate ADEQUATE (NORMAL) 06/03/18 04:15 PT 10.8 SECONDS (9.5-11.5) 06/05/18 08:00 INR 1.04 (0.5-1.4) 06/05/18 08:00 PTT (Actin FS) 28.2 SECONDS (26.0-38.0) 06/05/18 08:00 D-Dimer 1240 ng/mL (100-400) H 05/30/18 10:00 Sodium 136 mEq/L (136-145) 06/05/18 08:00 Potassium 3.7 mEq/L (3.5-5.1) 06/05/18 08:00 Chloride 103 mEq/L (98-107) 06/05/18 08:00 Carbon Dioxide 25.2 mEq/L (21.0-31.0) 06/05/18 08:00 Anion Gap 11.5 (7.0-16.0) 06/05/18 08:00 BUN 8 mg/dL (7-25) 06/05/18 08:00 Creatinine 0.7 mg/dL (0.7-1.3) 06/05/18 08:00 Est GFR ( Amer) > 60.0 ml/min (>90) 06/05/18 08:00 Est GFR (Non-Af Amer) > 60.0 ml/min 06/05/18 08:00 BUN/Creatinine Ratio 11.4 06/05/18 08:00 Glucose 130 mg/dL (70-105) H 06/05/18 08:00 POC Glucose 100 MG/DL (70 - 105) 05/30/18 16:22 Calcium 8.2 mg/dL (8.6-10.3) L 06/05/18 08:00 Troponin I < 0.01 ng/mL (0.01-0.05) L 05/30/18 10:13 Fluid Glucose 106.0 mg/dL 06/05/18 10:45 Fluid Total Protein 3.3 g/dL 06/05/18 10:45 Vancomycin Trough 8.8 ug/mL (5-10) 06/05/18 08:00 - Physical Exam Vitals and I&O: Vital Signs Temp 98.2 F 06/05/18 11:51 Pulse 73 06/05/18 11:51 Resp 18 06/05/18 11:51 BP 101/59 06/05/18 11:51 Pulse Ox 95 06/05/18 11:51 Intake & Output 06/04/18 06/05/18 06/05/18 18:59 06:59 18:59 Intake Total 1450 740 Output Total 750 500 Balance 700 240 Weight (lbs) 87.09 kg 87.09 kg Intake: Intake, IV Amount 800 500 Azithromycin 500 mg In 250 Sodium Chloride 0.9% 250 ml @ 250 mls/hr IV DAILY [facility] Rx#:[id number] Vancomycin HCl 1.5 gm In 500 500 Sodium Chloride 0.9% 500 ml @ 250 mls/hr IV Q12HR@ 0800,2000 [facility] Rx#: [id number] cefTRIAXone 1 gm In 50 Sodium Chloride 0.9% 50 ml @ 100 mls/hr IV Q24HR [facility] Rx#:[id number] Oral 650 240 Output: Urine 750 500 Other: Weight Source Bedscale Bedscale Active Medications: Current Medications Acetaminophen (Tylenol Extra Strength) 500 mg PO Q6HR PRN PRN Reason: FEVER Stop: 07/29/18 17:21 Last Admin: 06/05/18 06:04 Dose: 500 mg Albuterol/Ipratropium (Duoneb Neb) 3 ml HHN Q6HRT [facility] Stop: 07/31/18 18:59 Last Admin: 06/05/18 06:58 Dose: 3 ml Azithromycin 500 mg/ Sodium (Chloride) 250 mls @ 250 mls/hr IV DAILY [facility] Stop: 07/30/18 08:59 Last Admin: 06/05/18 09:01 Dose: 250 mls/hr Ceftriaxone Sodium 1 gm/ (Sodium Chloride) 50 mls @ 100 mls/hr IV Q24HR [facility] Stop: 07/29/18 15:43 Last Infusion: 06/04/18 16:00 Dose: Infused Vancomycin HCl 1.5 gm/ Sodium (Chloride) 500 mls @ 250 mls/hr IV Q8H [facility] Stop: 08/04/18 09:59 Last Admin: 06/05/18 11:07 Dose: 250 mls/hr Ibuprofen (Motrin) 800 mg PO TID PRN PRN Reason: MILD TO MOD. PAIN Stop: 07/29/18 17:16 Last Admin: 06/01/18 07:03 Dose: 800 mg Lactobacillus Rhamnosus (Culturelle 15b) 1 each PO DAILY [facility] Stop: 08/04/18 08:59 Last Admin: 06/05/18 09:01 Dose: 1 each Miscellaneous (Vancomycin Iv Per Pharmacy) 1 ea MC PRN PRN PRN Reason: PROTOCOL Stop: 07/29/18 15:48 Miscellaneous (Probiotic Screen) 1 ea MC PRN PRN PRN Reason: PROTOCOL Stop: 08/03/18 09:44 Miscellaneous (Non-Formulary Item) 5,000 ea IV ONCE [facility] Stop: 08/04/18 11:29 Morphine Sulfate (Morphine) 2 mg IV Q4HR PRN PRN Reason: Severe Pain Stop: 07/29/18 17:14 Last Admin: 06/05/18 13:43 Dose: 2 mg Ondansetron HCl (Zofran) 4 mg IV Q6H PRN PRN Reason: NAUSEA Stop: 07/29/18 17:29 General: no acute distress, well developed, well nourished HEENT: atraumatic, normocephalic, PERRLA, EOMI Neck: supple, no thyromegaly Cardiovascular: S1S2, regular Lungs: clear to auscultation bilaterally, clear to percussion Abdomen: soft, no tender, no distended Extremities: no cyanosis, no clubbing, no edema Neurological: awake, alert, oriented Skin: intact Infectious Disease Assmt/Plan - Assessment Assessment: 1. Pneumonmia. 2. PE. 3. DVT. - Plan Plan: Continue vanco IV , rocephin and dc zithromax. Nutritional Asmnt/Malnutr-PDOC - Dietary Evaluation Malnutrition Findings (Please click <Entered> for more info): Nutritional Asmnt/Malnutrition Start: 06/03/18 11: 57 Text: Status: Complete Freq: Protocol: Document 06/03/18 12:44 ELEONORA (Rec: 06/03/18 12:48 ELEONORA [email or web address]) Nutritional Asmnt/Malnutrition Patient General Information Nutritional Screening Moderate Risk Pertinent Medical Hx/Surgical Hx no sig medical hx, appendectomy, smokes about 15 cigarettes a day Subjective Information Pt seen lying in bed at time of visit, stating appetite so so. Pt consumed few breakfast today, has no food preference to give. Per EMR, PO intake 25 -50%. Per nurse, pt has DVT to right arm. Current Diet Order/ Nutrition Support regular Pertinent Medications vancomycin Pertinent Labs 05/30 Na 134, glucose 145, Ca 8. 4 Nutritional Hx/Data Height 1.83 m Height (Calculated Centimeters) 182.9 Current Weight (lbs) 87.09 kg Weight (Calculated Kilograms) 87.1 Weight (Calculated Grams) 27983.7 [place] Body Weight 178 Body Mass Index (BMI) 26.0 Weight Status Overweight GI Symptoms GI Symptoms None Last BM not indicated Difficult in: None Skin Integrity/Comment: intact Current %PO Poor (25-49%) Estimated Nutritional Goals BEE in Kcals: Using Current wt Calories/Kcals/Kg 25-30 based IBW 81kg Kcals Calculated 5123-2468 Protein: Using Current wt Protein g/k Protein Calculated 81 Fluid: ml 2024-2430ml (1ml/kcal) Nutritional Problem 1. Problem Problem inadequate food intake Etiology decreased appetite Signs/Symptoms: PO intake 25-30% Malnutrition Alert Is there a minimum of two criteria No selected? Query Text:Check all the applicable criteria. A minimum of two criteria are recommended for diagnosis of either severe or non-severe malnutrition. Malnutrition Related to Morbid Obesity Malnutrition related to morbid obesity No Intervention/Recommendation Comments 1. Continue with current diet as ordered. Encouraged oral intake. 2. Monitor PO intake, wt, labs and skin integrity 3. F/U as moderate risk in 3-5 days, 06/06-06/08, PO check Expected Outcomes/Goals Expected Outcomes/Goals 1. PO intake to meet at least 75% of nutritional needs. 2. Wt stability, skin to remain intact, labs to approach WNL.
[2018-06-05] MEDS: cefTRIAXone 1 GM in Sodium Chloride 0.9% 50 ML IV SCH (15:55)
[2018-06-05] MEDS: Betamethasone/Clotrimazole Cream 15 gm Tube TP SCH (17:29)
[2018-06-05 18:15] VITALS: BP 110/66
--- NOTE | 2018-06-05 20:47 | General Progress Note ---
Subjective - Review of Systems Service Date: 06/05/18 Subjective: Patient is s/p Thoracentesis Bloody fluids reported Patient was transfered to ICU for close monitoring per Hematology recommendations Objective - Results Result Diagrams: 06/05/18 08:00 06/05/18 08:00 Recent Labs: Laboratory Last Values WBC 5.7 Th/cmm (4.8-10.8) 06/05/18 08:00 RBC 3.80 Mil/cmm (4.30-5.70) L 06/05/18 08:00 Hgb 11.6 gm/dL (12-16) L 06/05/18 08:00 Hct 33.9 % (41.0-60) L 06/05/18 08:00 MCV 89.3 fl (80-99) 06/05/18 08:00 MCH 30.6 pg (26.0-30.0) H 06/05/18 08:00 MCHC Differential 34.3 pg (28.0-36.0) 06/05/18 08:00 RDW 13.0 % (11.5-20.0) 06/05/18 08:00 Plt Count 300 Th/cmm (150-400) 06/05/18 08:00 MPV 7.9 fl 06/05/18 08:00 Add Manual Diff YES 06/05/18 08:00 Neutrophils % 65.7 % (40.0-80.0) 06/01/18 15:05 Band Neutrophils % 0 % (0-10) 06/05/18 08:00 Lymphocytes % 18.7 % (20.0-50.0) L 06/01/18 15:05 Monocytes % 12.7 % (2.0-10.0) H 06/01/18 15:05 Eosinophils % 2.0 % (0.0-5.0) 06/01/18 15:05 Basophils % 0.9 % (0.0-2.0) 06/01/18 15:05 Neutrophils (Manual) 73 % (40-80) 06/05/18 08:00 Lymphocytes 18 % (20-50) L 06/05/18 08:00 Monocytes 8 % (2-10) 06/05/18 08:00 Eosinophils 1 % (0-5) 06/05/18 08:00 Basophils 0 % (0-3) 06/05/18 08:00 Atypical Lymphocytes 5 % 06/03/18 04:15 Platelet Estimate ADEQUATE (NORMAL) 06/03/18 04:15 PT 10.8 SECONDS (9.5-11.5) 06/05/18 08:00 INR 1.04 (0.5-1.4) 06/05/18 08:00 PTT (Actin FS) 28.2 SECONDS (26.0-38.0) 06/05/18 08:00 D-Dimer 1240 ng/mL (100-400) H 05/30/18 10:00 Sodium 136 mEq/L (136-145) 06/05/18 08:00 Potassium 3.7 mEq/L (3.5-5.1) 06/05/18 08:00 Chloride 103 mEq/L (98-107) 06/05/18 08:00 Carbon Dioxide 25.2 mEq/L (21.0-31.0) 06/05/18 08:00 Anion Gap 11.5 (7.0-16.0) 06/05/18 08:00 BUN 8 mg/dL (7-25) 06/05/18 08:00 Creatinine 0.7 mg/dL (0.7-1.3) 06/05/18 08:00 Est GFR ( Amer) > 60.0 ml/min (>90) 06/05/18 08:00 Est GFR (Non-Af Amer) > 60.0 ml/min 06/05/18 08:00 BUN/Creatinine Ratio 11.4 06/05/18 08:00 Glucose 130 mg/dL (70-105) H 06/05/18 08:00 POC Glucose 100 MG/DL (70 - 105) 05/30/18 16:22 Calcium 8.2 mg/dL (8.6-10.3) L 06/05/18 08:00 Troponin I < 0.01 ng/mL (0.01-0.05) L 05/30/18 10:13 Fluid Glucose 106.0 mg/dL 06/05/18 10:45 Fluid Total Protein 3.3 g/dL 06/05/18 10:45 Vancomycin Trough 8.8 ug/mL (5-10) 06/05/18 08:00 - Physical Exam Vitals and I&O: Vital Signs Temp 98.3 F 06/05/18 17:00 Pulse 84 06/05/18 18:41 Resp 20 06/05/18 18:41 BP 110/66 06/05/18 18:14 Pulse Ox 96 06/05/18 18:41 Intake & Output 06/05/18 06/05/18 06/06/18 06:59 18:59 06:59 Intake Total 740 1050 Output Total 500 800 Balance 240 250 Weight (lbs) 87.09 kg 78.471 kg Intake: Intake, IV Amount 500 550 Vancomycin HCl 1.5 gm In 500 Sodium Chloride 0.9% 500 ml @ 250 mls/hr IV Q12HR@ 0800,2000 [facility] Rx#: [id number] Vancomycin HCl 1.5 gm In 500 Sodium Chloride 0.9% 500 ml @ 250 mls/hr IV Q8H [facility] Rx#:[id number] cefTRIAXone 1 gm In 50 Sodium Chloride 0.9% 50 ml @ 100 mls/hr IV Q24HR [facility] Rx#:[id number] Oral 240 500 Output: Urine 500 800 Other: # Voids 2 Weight Source Bedscale Bedscale Active Medications: Current Medications Acetaminophen (Tylenol Extra Strength) 500 mg PO Q6HR PRN PRN Reason: FEVER Stop: 07/29/18 17:21 Last Admin: 06/05/18 06:04 Dose: 500 mg Albuterol/Ipratropium (Duoneb Neb) 3 ml HHN Q6HRT [facility] Stop: 07/31/18 18:59 Last Admin: 06/05/18 18:40 Dose: 3 ml Betamethasone/Clotrimazole (Lotrisone Cream) 1 appl TP BID [facility] Stop: 06/12/18 16:59 Last Admin: 06/05/18 17:29 Dose: 1 appl Ceftriaxone Sodium 1 gm/ (Sodium Chloride) 50 mls @ 100 mls/hr IV Q24HR [facility] Stop: 07/29/18 15:43 Last Infusion: 06/05/18 16:25 Dose: Infused Vancomycin HCl 1.5 gm/ Sodium (Chloride) 500 mls @ 250 mls/hr IV Q8H [facility] Stop: 08/04/18 09:59 Last Admin: 06/05/18 17:28 Dose: 250 mls/hr Ibuprofen (Motrin) 800 mg PO TID PRN PRN Reason: MILD TO MOD. PAIN Stop: 07/29/18 17:16 Last Admin: 06/01/18 07:03 Dose: 800 mg Lactobacillus Rhamnosus (Culturelle 15b) 1 each PO DAILY [facility] Stop: 08/04/18 08:59 Last Admin: 06/05/18 09:01 Dose: 1 each Miscellaneous (Vancomycin Iv Per Pharmacy) 1 ea MC PRN PRN PRN Reason: PROTOCOL Stop: 07/29/18 15:48 Miscellaneous (Probiotic Screen) 1 ea MC PRN PRN PRN Reason: PROTOCOL Stop: 08/03/18 09:44 Miscellaneous (Non-Formulary Item) 5,000 ea IV ONCE [facility] Stop: 08/04/18 11:29 Morphine Sulfate (Morphine) 2 mg IV Q4HR PRN PRN Reason: Severe Pain Stop: 07/29/18 17:14 Last Admin: 06/05/18 19:38 Dose: 2 mg Ondansetron HCl (Zofran) 4 mg IV Q6H PRN PRN Reason: NAUSEA Stop: 07/29/18 17:29 General: Alert Cardiovascular: Regular rate Lungs: Clear to auscultation Abdomen: Soft Extremities: no Edema Skin: Rash Assessment/Plan - Assessment Assessment: Bilateral PE pneumonia Right UE DVT Dermatitis on the back - Plan Plan: Prothrombin concentrate Lotrisone ordered Continue antibiotics Morphine prn Plan of care discussed with the patient Nutritional Asmnt/Malnutr-PDOC - Dietary Evaluation Malnutrition Findings (Please click <Entered> for more info): Nutritional Asmnt/Malnutrition Start: 06/03/18 11: 57 Text: Status: Complete Freq: Protocol: Document 06/03/18 12:44 ELEONORA (Rec: 06/03/18 12:48 ELEONORA [email or web address]) Nutritional Asmnt/Malnutrition Patient General Information Nutritional Screening Moderate Risk Pertinent Medical Hx/Surgical Hx no sig medical hx, appendectomy, smokes about 15 cigarettes a day Subjective Information Pt seen lying in bed at time of visit, stating appetite so so. Pt consumed few breakfast today, has no food preference to give. Per EMR, PO intake 25 -50%. Per nurse, pt has DVT to right arm. Current Diet Order/ Nutrition Support regular Pertinent Medications vancomycin Pertinent Labs 05/30 Na 134, glucose 145, Ca 8. 4 Nutritional Hx/Data Height 1.83 m Height (Calculated Centimeters) 182.9 Current Weight (lbs) 87.09 kg Weight (Calculated Kilograms) 87.1 Weight (Calculated Grams) 14582.7 [place] Body Weight 178 Body Mass Index (BMI) 26.0 Weight Status Overweight GI Symptoms GI Symptoms None Last BM not indicated Difficult in: None Skin Integrity/Comment: intact Current %PO Poor (25-49%) Estimated Nutritional Goals BEE in Kcals: Using Current wt Calories/Kcals/Kg 25-30 based IBW 81kg Kcals Calculated 5703-9600 Protein: Using Current wt Protein g/k Protein Calculated 81 Fluid: ml 2024-243ml (1ml/kcal) Nutritional Problem 1. Problem Problem inadequate food intake Etiology decreased appetite Signs/Symptoms: PO intake 25-30% Malnutrition Alert Is there a minimum of two criteria No selected? Query Text:Check all the applicable criteria. A minimum of two criteria are recommended for diagnosis of either severe or non-severe malnutrition. Malnutrition Related to Morbid Obesity Malnutrition related to morbid obesity No Intervention/Recommendation Comments 1. Continue with current diet as ordered. Encouraged oral intake. 2. Monitor PO intake, wt, labs and skin integrity 3. F/U as moderate risk in 3-5 days, 06/06-06/08, PO check Expected Outcomes/Goals Expected Outcomes/Goals 1. PO intake to meet at least 75% of nutritional needs. 2. Wt stability, skin to remain intact, labs to approach WNL.
[2018-06-06] MEDS: Acetaminophen 500 MG TAB PO PRN ×3 (00:07→16:41)
[2018-06-06] MEDS: Albuterol/Ipratropium Neb 3 ML AERS HHN SCH ×4 (01:04→19:12)
[2018-06-06] MEDS: Vancomycin HCl 1.5 GM in Sodium Chloride 0.9% 500 ML IV SCH ×2 (01:33→09:50)
[2018-06-06 04:29] LABS: HEMATOCRIT 31.4 % (41.0-60); HEMOGLOBIN 10.8 gm/dL (12-16); MEAN CELL VOLUME 88.6 fl (80-99); MEAN CORPUSCULAR HEMOGLOBIN 30.5 pg (26.0-30.0); MEAN CORPUSCULAR HGB CONC 34.5 pg (28.0-36.0); MEAN PLATELET VOLUME 6.9 fl; PLATELET COUNT 275 Th/cmm (150-400); RED BLOOD COUNT 3.54 Mil/cmm (4.30-5.70)
[2018-06-06] MEDS: Morphine Sulfate 2 mg/mL 1mL Syr IV PRN ×3 (04:29→20:10)
[2018-06-06 04:54] LABS: ATYPICAL LYMPH 5 %; BAND NEUTROPHILE 1 % (0-10); EOSINOPHIL 4 % (0-5); LYMPHOCYTE 20 % (20-50); MONOCYTE 3 % (2-10); NEUTROPHILS 72 % (40-80); PLATELET ESTIMATE ADEQUATE (NORMAL)
[2018-06-06 04:55] LABS: ANION GAP 10.1 (7.0-16.0); BUN - UREA NITROGEN 6 mg/dL (7-25); CALCIUM SERUM 7.9 mg/dL (8.6-10.3); CARBON DIOXIDE 24.5 mEq/L (21.0-31.0); CHLORIDE 104 mEq/L (98-107); CREATININE - SERUM 0.7 mg/dL (0.7-1.3); GFR AFRICAN-AMERICAN > 60.0 ml/min (>90); GFR NON AFRICAN-AMERICAN > 60.0 ml/min; GLUCOSE 146 mg/dL (70-105); POTASSIUM SERUM 3.6 mEq/L (3.5-5.1); SODIUM SERUM 135 mEq/L (136-145)
[2018-06-06] MEDS: Betamethasone/Clotrimazole Cream 15 gm Tube TP SCH ×2 (08:24→16:56)
[2018-06-06] MEDS: Lactobacillus Rhamnosus GG 15 Billion CFU CAP.SPRINK PO SCH (08:24)
--- NOTE | 2018-06-06 08:26 | Diagnostic Imaging Report ---
Exam: Portable chest x-ray. HISTORY: Shortness of breath. Findings: Portable examination of the chest at 0802 hours reviewed and compared to prior study of the great poorly demonstrates unchanged appearance of the right upper lobe consolidation pneumonia with most likely superimposed the loculated effusion there is evidence for a mild basilar infiltrate and superimposed basilar effusions. Mild congestion cannot be excluded. Bony thorax intact. Mediastinal structures midline. IMPRESSION: Essentially unchanged appearance of the chest compared to prior study day earlier.
--- NOTE | 2018-06-06 13:20 | Pathology Report ---
[id number] Collection date: 06/05/2018 Surgeon: Dr. Yajaira Pearce Specimen Description: Right pleural fluid for cytology Gross Description: Received in a large glass container is approximately 1500 ml of reddish brown watery fluid. A quality audit representative portion of the specimen is submitted for cytology processing. Microscopic Description: Examination of two cytospins and one cell block shows mostly blood admixed with scattered inflammatory cells consisting of lymphocytes and neutrophils. Only rare mesothelial cells are appreciated. Diagnosis: No cytologic evidence for malignancy, right pleural fluid cytology. [facility]# [id number] [facility]
--- NOTE | 2018-06-06 13:45 | Infectious Disease Prog Note ---
Infectious Disease Subjective - Review of Systems Service Date: 06/06/18 Subjective: hemorrhagic pleural effusion. no fever. Infectious Disease Objective - Results Result Diagrams: 06/06/18 04:20 06/06/18 04:20 Recent Labs: Laboratory Last Values WBC 5.0 Th/cmm (4.8-10.8) 06/06/18 04:20 RBC 3.54 Mil/cmm (4.30-5.70) L 06/06/18 04:20 Hgb 10.8 gm/dL (12-16) L 06/06/18 04:20 Hct 31.4 % (41.0-60) L 06/06/18 04:20 MCV 88.6 fl (80-99) 06/06/18 04:20 MCH 30.5 pg (26.0-30.0) H 06/06/18 04:20 MCHC Differential 34.5 pg (28.0-36.0) 06/06/18 04:20 RDW 13.0 % (11.5-20.0) 06/06/18 04:20 Plt Count 275 Th/cmm (150-400) 06/06/18 04:20 MPV 6.9 fl 06/06/18 04:20 Add Manual Diff YES 06/06/18 04:20 Neutrophils % 65.7 % (40.0-80.0) 06/01/18 15:05 Band Neutrophils % 1 % (0-10) 06/06/18 04:20 Lymphocytes % 18.7 % (20.0-50.0) L 06/01/18 15:05 Monocytes % 12.7 % (2.0-10.0) H 06/01/18 15:05 Eosinophils % 2.0 % (0.0-5.0) 06/01/18 15:05 Basophils % 0.9 % (0.0-2.0) 06/01/18 15:05 Neutrophils (Manual) 72 % (40-80) 06/06/18 04:20 Lymphocytes 20 % (20-50) 06/06/18 04:20 Monocytes 3 % (2-10) 06/06/18 04:20 Eosinophils 4 % (0-5) 06/06/18 04:20 Basophils 0 % (0-3) 06/05/18 08:00 Atypical Lymphocytes 5 % 06/06/18 04:20 Platelet Estimate ADEQUATE (NORMAL) 06/06/18 04:20 PT 10.8 SECONDS (9.5-11.5) 06/05/18 08:00 INR 1.04 (0.5-1.4) 06/05/18 08:00 PTT (Actin FS) 28.2 SECONDS (26.0-38.0) 06/05/18 08:00 D-Dimer 1240 ng/mL (100-400) H 05/30/18 10:00 Sodium 135 mEq/L (136-145) L 06/06/18 04:20 Potassium 3.6 mEq/L (3.5-5.1) 06/06/18 04:20 Chloride 104 mEq/L (98-107) 06/06/18 04:20 Carbon Dioxide 24.5 mEq/L (21.0-31.0) 06/06/18 04:20 Anion Gap 10.1 (7.0-16.0) 06/06/18 04:20 BUN 6 mg/dL (7-25) L 06/06/18 04:20 Creatinine 0.7 mg/dL (0.7-1.3) 06/06/18 04:20 Est GFR ( Amer) > 60.0 ml/min (>90) 06/06/18 04:20 Est GFR (Non-Af Amer) > 60.0 ml/min 06/06/18 04:20 BUN/Creatinine Ratio 8.6 06/06/18 04:20 Glucose 146 mg/dL (70-105) H 06/06/18 04:20 POC Glucose 100 MG/DL (70 - 105) 05/30/18 16:22 Calcium 7.9 mg/dL (8.6-10.3) L 06/06/18 04:20 Troponin I < 0.01 ng/mL (0.01-0.05) L 05/30/18 10:13 Fluid Glucose 106.0 mg/dL 06/05/18 10:45 Fluid Total Protein 3.3 g/dL 06/05/18 10:45 Fluid LDH 579 U/L 06/05/18 10:45 Vancomycin Trough 16.1 ug/mL (5-10) H 06/06/18 09:00 - Physical Exam Vitals and I&O: Vital Signs Temp 98.7 F 06/06/18 13:00 Pulse 77 06/06/18 13:00 Resp 21 06/06/18 13:00 BP 109/58 06/06/18 13:00 Pulse Ox 96 06/06/18 13:00 Intake & Output 06/05/18 06/06/18 06/06/18 18:59 06:59 18:59 Intake Total 1050 1750 500 Output Total 800 700 Balance 250 1050 500 Weight (lbs) 78.471 kg 78.471 kg Intake: Intake, IV Amount 550 1000 500 Vancomycin HCl 1.5 gm In 500 1000 500 Sodium Chloride 0.9% 500 ml @ 250 mls/hr IV Q8H [facility] Rx#:[id number] cefTRIAXone 1 gm In 50 Sodium Chloride 0.9% 50 ml @ 100 mls/hr IV Q24HR [facility] Rx#:[id number] Oral 500 Other 750 Output: Urine 800 700 Other: # Voids 2 3 # Bowel Movements 0 Weight Source Bedscale Bedscale Active Medications: Current Medications Acetaminophen (Tylenol Extra Strength) 500 mg PO Q6HR PRN PRN Reason: FEVER Stop: 07/29/18 17:21 Last Admin: 06/06/18 08:27 Dose: 500 mg Albuterol/Ipratropium (Duoneb Neb) 3 ml HHN Q6HRT [facility] Stop: 07/31/18 18:59 Last Admin: 06/06/18 07:07 Dose: 3 ml Betamethasone/Clotrimazole (Lotrisone Cream) 1 appl TP BID [facility] Stop: 06/12/18 16:59 Last Admin: 06/06/18 08:24 Dose: 1 appl Ceftriaxone Sodium 1 gm/ (Sodium Chloride) 50 mls @ 100 mls/hr IV Q24HR [facility] Stop: 07/29/18 15:43 Last Infusion: 06/05/18 16:25 Dose: Infused Vancomycin HCl 1.5 gm/ Sodium (Chloride) 500 mls @ 250 mls/hr IV Q8H [facility] Stop: 08/04/18 09:59 Last Infusion: 06/06/18 11:50 Dose: Infused Ibuprofen (Motrin) 800 mg PO TID PRN PRN Reason: MILD TO MOD. PAIN Stop: 07/29/18 17:16 Last Admin: 06/01/18 07:03 Dose: 800 mg Lactobacillus Rhamnosus (Culturelle 15b) 1 each PO DAILY [facility] Stop: 08/04/18 08:59 Last Admin: 06/06/18 08:24 Dose: 1 each Miscellaneous (Vancomycin Iv Per Pharmacy) 1 ea MC PRN PRN PRN Reason: PROTOCOL Stop: 07/29/18 15:48 Miscellaneous (Probiotic Screen) 1 ea MC PRN PRN PRN Reason: PROTOCOL Stop: 08/03/18 09:44 Miscellaneous (Non-Formulary Item) 5,000 ea IV ONCE [facility] Stop: 08/04/18 11:29 Morphine Sulfate (Morphine) 2 mg IV Q4HR PRN PRN Reason: Severe Pain Stop: 07/29/18 17:14 Last Admin: 06/06/18 08:25 Dose: 2 mg Ondansetron HCl (Zofran) 4 mg IV Q6H PRN PRN Reason: NAUSEA Stop: 07/29/18 17:29 General: no acute distress, well developed HEENT: atraumatic, normocephalic, PERRLA Neck: supple, no thyromegaly, no lymphadenopathy Cardiovascular: S1S2, regular Lungs: clear to auscultation bilaterally, clear to percussion Abdomen: soft, no tender, no distended Extremities: no cyanosis, no clubbing, no edema Neurological: awake, alert, oriented Skin: intact - Procedures Procedures: Procedures Procedure Code Date DRAINAGE OF RIGHT PLEURAL CAVITY, PERC APPROACH, DIAGN [id number] 05/30/18 Infectious Disease Assmt/Plan - Assessment Assessment: 1. Pneumonmia. 2. PE. 3. DVT. - Plan Plan: Continue rocephin and dc vanco IV. Nutritional Asmnt/Malnutr-PDOC - Dietary Evaluation Malnutrition Findings (Please click <Entered> for more info): Nutritional Asmnt/Malnutrition Start: 06/03/18 11: 57 Text: Status: Complete Freq: Protocol: Document 06/03/18 12:44 ELEONORA (Rec: 06/03/18 12:48 ELEONORA [email or web address]) Nutritional Asmnt/Malnutrition Patient General Information Nutritional Screening Moderate Risk Pertinent Medical Hx/Surgical Hx no sig medical hx, appendectomy, smokes about 15 cigarettes a day Subjective Information Pt seen lying in bed at time of visit, stating appetite so so. Pt consumed few breakfast today, has no food preference to give. Per EMR, PO intake 25 -50%. Per nurse, pt has DVT to right arm. Current Diet Order/ Nutrition Support regular Pertinent Medications vancomycin Pertinent Labs 05/30 Na 134, glucose 145, Ca 8. 4 Nutritional Hx/Data Height 1.83 m Height (Calculated Centimeters) 182.9 Current Weight (lbs) 87.09 kg Weight (Calculated Kilograms) 87.1 Weight (Calculated Grams) 94567.7 [place] Body Weight 178 Body Mass Index (BMI) 26.0 Weight Status Overweight GI Symptoms GI Symptoms None Last BM not indicated Difficult in: None Skin Integrity/Comment: intact Current %PO Poor (25-49%) Estimated Nutritional Goals BEE in Kcals: Using Current wt Calories/Kcals/Kg 25-30 based IBW 81kg Kcals Calculated 1898-5191 Protein: Using Current wt Protein g/k Protein Calculated 81 Fluid: ml 2024-2430ml (1ml/kcal) Nutritional Problem 1. Problem Problem inadequate food intake Etiology decreased appetite Signs/Symptoms: PO intake 25-30% Malnutrition Alert Is there a minimum of two criteria No selected? Query Text:Check all the applicable criteria. A minimum of two criteria are recommended for diagnosis of either severe or non-severe malnutrition. Malnutrition Related to Morbid Obesity Malnutrition related to morbid obesity No Intervention/Recommendation Comments 1. Continue with current diet as ordered. Encouraged oral intake. 2. Monitor PO intake, wt, labs and skin integrity 3. F/U as moderate risk in 3-5 days, 06/06-06/08, PO check Expected Outcomes/Goals Expected Outcomes/Goals 1. PO intake to meet at least 75% of nutritional needs. 2. Wt stability, skin to remain intact, labs to approach WNL.
--- NOTE | 2018-06-06 14:45 | Infectious Disease Prog Note ---
Infectious Disease Subjective - Review of Systems Service Date: 06/06/18 Subjective: hemorrhagic pleural effusion. no fever. patient was admitted to this facility on 05/19/2018 for pneumonia and pleural effusion, and thoracentesis was performed on 05/21/2018. AFB smear was negative , but smear came positive , ( ? rapid grower). Infectious Disease Objective - Results Result Diagrams: 06/06/18 04:20 06/06/18 04:20 Recent Labs: Laboratory Last Values WBC 5.0 Th/cmm (4.8-10.8) 06/06/18 04:20 RBC 3.54 Mil/cmm (4.30-5.70) L 06/06/18 04:20 Hgb 10.8 gm/dL (12-16) L 06/06/18 04:20 Hct 31.4 % (41.0-60) L 06/06/18 04:20 MCV 88.6 fl (80-99) 06/06/18 04:20 MCH 30.5 pg (26.0-30.0) H 06/06/18 04:20 MCHC Differential 34.5 pg (28.0-36.0) 06/06/18 04:20 RDW 13.0 % (11.5-20.0) 06/06/18 04:20 Plt Count 275 Th/cmm (150-400) 06/06/18 04:20 MPV 6.9 fl 06/06/18 04:20 Add Manual Diff YES 06/06/18 04:20 Neutrophils % 65.7 % (40.0-80.0) 06/01/18 15:05 Band Neutrophils % 1 % (0-10) 06/06/18 04:20 Lymphocytes % 18.7 % (20.0-50.0) L 06/01/18 15:05 Monocytes % 12.7 % (2.0-10.0) H 06/01/18 15:05 Eosinophils % 2.0 % (0.0-5.0) 06/01/18 15:05 Basophils % 0.9 % (0.0-2.0) 06/01/18 15:05 Neutrophils (Manual) 72 % (40-80) 06/06/18 04:20 Lymphocytes 20 % (20-50) 06/06/18 04:20 Monocytes 3 % (2-10) 06/06/18 04:20 Eosinophils 4 % (0-5) 06/06/18 04:20 Basophils 0 % (0-3) 06/05/18 08:00 Atypical Lymphocytes 5 % 06/06/18 04:20 Platelet Estimate ADEQUATE (NORMAL) 06/06/18 04:20 PT 10.8 SECONDS (9.5-11.5) 06/05/18 08:00 INR 1.04 (0.5-1.4) 06/05/18 08:00 PTT (Actin FS) 28.2 SECONDS (26.0-38.0) 06/05/18 08:00 D-Dimer 1240 ng/mL (100-400) H 05/30/18 10:00 Sodium 135 mEq/L (136-145) L 06/06/18 04:20 Potassium 3.6 mEq/L (3.5-5.1) 06/06/18 04:20 Chloride 104 mEq/L (98-107) 06/06/18 04:20 Carbon Dioxide 24.5 mEq/L (21.0-31.0) 06/06/18 04:20 Anion Gap 10.1 (7.0-16.0) 06/06/18 04:20 BUN 6 mg/dL (7-25) L 06/06/18 04:20 Creatinine 0.7 mg/dL (0.7-1.3) 06/06/18 04:20 Est GFR ( Amer) > 60.0 ml/min (>90) 06/06/18 04:20 Est GFR (Non-Af Amer) > 60.0 ml/min 06/06/18 04:20 BUN/Creatinine Ratio 8.6 06/06/18 04:20 Glucose 146 mg/dL (70-105) H 06/06/18 04:20 POC Glucose 100 MG/DL (70 - 105) 05/30/18 16:22 Calcium 7.9 mg/dL (8.6-10.3) L 06/06/18 04:20 Troponin I < 0.01 ng/mL (0.01-0.05) L 05/30/18 10:13 Fluid Glucose 106.0 mg/dL 06/05/18 10:45 Fluid Total Protein 3.3 g/dL 06/05/18 10:45 Fluid LDH 579 U/L 06/05/18 10:45 Vancomycin Trough 16.1 ug/mL (5-10) H 06/06/18 09:00 - Physical Exam Vitals and I&O: Vital Signs Temp 98.7 F 06/06/18 14:00 Pulse 84 06/06/18 14:00 Resp 24 06/06/18 14:00 BP 112/58 06/06/18 14:00 Pulse Ox 96 06/06/18 14:00 Intake & Output 06/05/18 06/06/18 06/06/18 18:59 06:59 18:59 Intake Total 1050 1750 500 Output Total 800 700 Balance 250 1050 500 Weight (lbs) 78.471 kg 78.471 kg Intake: Intake, IV Amount 550 1000 500 Vancomycin HCl 1.5 gm In 500 1000 500 Sodium Chloride 0.9% 500 ml @ 250 mls/hr IV Q8H [facility] Rx#:[id number] cefTRIAXone 1 gm In 50 Sodium Chloride 0.9% 50 ml @ 100 mls/hr IV Q24HR [facility] Rx#:[id number] Oral 500 Other 750 Output: Urine 800 700 Other: # Voids 2 3 # Bowel Movements 0 Weight Source Bedscale Bedscale Active Medications: Current Medications Acetaminophen (Tylenol Extra Strength) 500 mg PO Q6HR PRN PRN Reason: FEVER Stop: 07/29/18 17:21 Last Admin: 06/06/18 08:27 Dose: 500 mg Albuterol/Ipratropium (Duoneb Neb) 3 ml HHN Q6HRT [facility] Stop: 07/31/18 18:59 Last Admin: 06/06/18 13:51 Dose: 3 ml Betamethasone/Clotrimazole (Lotrisone Cream) 1 appl TP BID [facility] Stop: 06/12/18 16:59 Last Admin: 06/06/18 08:24 Dose: 1 appl Ceftriaxone Sodium 1 gm/ (Sodium Chloride) 50 mls @ 100 mls/hr IV Q24HR [facility] Stop: 07/29/18 15:43 Last Infusion: 06/05/18 16:25 Dose: Infused Ibuprofen (Motrin) 800 mg PO TID PRN PRN Reason: MILD TO MOD. PAIN Stop: 07/29/18 17:16 Last Admin: 06/01/18 07:03 Dose: 800 mg Lactobacillus Rhamnosus (Culturelle 15b) 1 each PO DAILY [facility] Stop: 08/04/18 08:59 Last Admin: 06/06/18 08:24 Dose: 1 each Miscellaneous (Probiotic Screen) 1 ea MC PRN PRN PRN Reason: PROTOCOL Stop: 08/03/18 09:44 Miscellaneous (Non-Formulary Item) 5,000 ea IV ONCE [facility] Stop: 08/04/18 11:29 Morphine Sulfate (Morphine) 2 mg IV Q4HR PRN PRN Reason: Severe Pain Stop: 07/29/18 17:14 Last Admin: 06/06/18 08:25 Dose: 2 mg Ondansetron HCl (Zofran) 4 mg IV Q6H PRN PRN Reason: NAUSEA Stop: 07/29/18 17:29 General: no acute distress, well developed, well nourished HEENT: atraumatic, normocephalic, PERRLA, EOMI Neck: supple, no thyromegaly, no lymphadenopathy Cardiovascular: S1S2, regular Lungs: clear to auscultation bilaterally, clear to percussion Abdomen: soft, no tender, no distended Extremities: no cyanosis, no clubbing, no edema Neurological: awake, alert, oriented Skin: intact - Procedures Procedures: Procedures Procedure Code Date DRAINAGE OF RIGHT PLEURAL CAVITY, PERC APPROACH, DIAGN [id number] 05/30/18 Infectious Disease Assmt/Plan - Assessment Assessment: 1. Pneumonmia. 2. PE. 3. DVT. 4. 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 - Plan Plan: Continue rocephin. Start TB meds and zithromax. wait for final id of the AFB/Mycobacteria. Check MTB PCR. TB GOld quantiferon, HIV screen. airborne isolation. Nutritional Asmnt/Malnutr-PDOC - Dietary Evaluation Malnutrition Findings (Please click <Entered> for more info): Nutritional Asmnt/Malnutrition Start: 06/03/18 11: 57 Text: Status: Complete Freq: Protocol: Document 06/03/18 12:44 ELEONORA (Rec: 06/03/18 12:48 ELEONORA [email or web address]) Nutritional Asmnt/Malnutrition Patient General Information Nutritional Screening Moderate Risk Pertinent Medical Hx/Surgical Hx no sig medical hx, appendectomy, smokes about 15 cigarettes a day Subjective Information Pt seen lying in bed at time of visit, stating appetite so so. Pt consumed few breakfast today, has no food preference to give. Per EMR, PO intake 25 -50%. Per nurse, pt has DVT to right arm. Current Diet Order/ Nutrition Support regular Pertinent Medications vancomycin Pertinent Labs 05/30 Na 134, glucose 145, Ca 8. 4 Nutritional Hx/Data Height 1.83 m Height (Calculated Centimeters) 182.9 Current Weight (lbs) 87.09 kg Weight (Calculated Kilograms) 87.1 Weight (Calculated Grams) 22239.7 [place] Body Weight 178 Body Mass Index (BMI) 26.0 Weight Status Overweight GI Symptoms GI Symptoms None Last BM not indicated Difficult in: None Skin Integrity/Comment: intact Current %PO Poor (25-49%) Estimated Nutritional Goals BEE in Kcals: Using Current wt Calories/Kcals/Kg 25-30 based IBW 81kg Kcals Calculated 3237-5425 Protein: Using Current wt Protein g/k Protein Calculated 81 Fluid: ml 2024-243ml (1ml/kcal) Nutritional Problem 1. Problem Problem inadequate food intake Etiology decreased appetite Signs/Symptoms: PO intake 25-30% Malnutrition Alert Is there a minimum of two criteria No selected? Query Text:Check all the applicable criteria. A minimum of two criteria are recommended for diagnosis of either severe or non-severe malnutrition. Malnutrition Related to Morbid Obesity Malnutrition related to morbid obesity No Intervention/Recommendation Comments 1. Continue with current diet as ordered. Encouraged oral intake. 2. Monitor PO intake, wt, labs and skin integrity 3. F/U as moderate risk in 3-5 days, 06/06-06/08, PO check Expected Outcomes/Goals Expected Outcomes/Goals 1. PO intake to meet at least 75% of nutritional needs. 2. Wt stability, skin to remain intact, labs to approach WNL.
--- NOTE | 2018-06-06 14:50 | Infectious Disease Prog Note ---
Infectious Disease Subjective - Review of Systems Service Date: 06/06/18 Subjective: hemorrhagic pleural effusion. no fever. patient was admitted to this facility on 05/19/2018 for right upper lobe pneumonia, and [place] culture from 05/21/2018 had AFB smear negative, but culture came positive , ( ? rapid grower). Infectious Disease Objective - Results Result Diagrams: 06/06/18 04:20 06/06/18 04:20 Recent Labs: Laboratory Last Values WBC 5.0 Th/cmm (4.8-10.8) 06/06/18 04:20 RBC 3.54 Mil/cmm (4.30-5.70) L 06/06/18 04:20 Hgb 10.8 gm/dL (12-16) L 06/06/18 04:20 Hct 31.4 % (41.0-60) L 06/06/18 04:20 MCV 88.6 fl (80-99) 06/06/18 04:20 MCH 30.5 pg (26.0-30.0) H 06/06/18 04:20 MCHC Differential 34.5 pg (28.0-36.0) 06/06/18 04:20 RDW 13.0 % (11.5-20.0) 06/06/18 04:20 Plt Count 275 Th/cmm (150-400) 06/06/18 04:20 MPV 6.9 fl 06/06/18 04:20 Add Manual Diff YES 06/06/18 04:20 Neutrophils % 65.7 % (40.0-80.0) 06/01/18 15:05 Band Neutrophils % 1 % (0-10) 06/06/18 04:20 Lymphocytes % 18.7 % (20.0-50.0) L 06/01/18 15:05 Monocytes % 12.7 % (2.0-10.0) H 06/01/18 15:05 Eosinophils % 2.0 % (0.0-5.0) 06/01/18 15:05 Basophils % 0.9 % (0.0-2.0) 06/01/18 15:05 Neutrophils (Manual) 72 % (40-80) 06/06/18 04:20 Lymphocytes 20 % (20-50) 06/06/18 04:20 Monocytes 3 % (2-10) 06/06/18 04:20 Eosinophils 4 % (0-5) 06/06/18 04:20 Basophils 0 % (0-3) 06/05/18 08:00 Atypical Lymphocytes 5 % 06/06/18 04:20 Platelet Estimate ADEQUATE (NORMAL) 06/06/18 04:20 PT 10.8 SECONDS (9.5-11.5) 06/05/18 08:00 INR 1.04 (0.5-1.4) 06/05/18 08:00 PTT (Actin FS) 28.2 SECONDS (26.0-38.0) 06/05/18 08:00 D-Dimer 1240 ng/mL (100-400) H 05/30/18 10:00 Sodium 135 mEq/L (136-145) L 06/06/18 04:20 Potassium 3.6 mEq/L (3.5-5.1) 06/06/18 04:20 Chloride 104 mEq/L (98-107) 06/06/18 04:20 Carbon Dioxide 24.5 mEq/L (21.0-31.0) 06/06/18 04:20 Anion Gap 10.1 (7.0-16.0) 06/06/18 04:20 BUN 6 mg/dL (7-25) L 06/06/18 04:20 Creatinine 0.7 mg/dL (0.7-1.3) 06/06/18 04:20 Est GFR ( Amer) > 60.0 ml/min (>90) 06/06/18 04:20 Est GFR (Non-Af Amer) > 60.0 ml/min 06/06/18 04:20 BUN/Creatinine Ratio 8.6 06/06/18 04:20 Glucose 146 mg/dL (70-105) H 06/06/18 04:20 POC Glucose 100 MG/DL (70 - 105) 05/30/18 16:22 Calcium 7.9 mg/dL (8.6-10.3) L 06/06/18 04:20 Troponin I < 0.01 ng/mL (0.01-0.05) L 05/30/18 10:13 Fluid Glucose 106.0 mg/dL 06/05/18 10:45 Fluid Total Protein 3.3 g/dL 06/05/18 10:45 Fluid LDH 579 U/L 06/05/18 10:45 Vancomycin Trough 16.1 ug/mL (5-10) H 06/06/18 09:00 - Physical Exam Vitals and I&O: Vital Signs Temp 98.7 F 06/06/18 14:00 Pulse 84 06/06/18 14:00 Resp 24 06/06/18 14:00 BP 112/58 06/06/18 14:00 Pulse Ox 96 06/06/18 14:00 Intake & Output 06/05/18 06/06/18 06/06/18 18:59 06:59 18:59 Intake Total 1050 1750 500 Output Total 800 700 Balance 250 1050 500 Weight (lbs) 78.471 kg 78.471 kg Intake: Intake, IV Amount 550 1000 500 Vancomycin HCl 1.5 gm In 500 1000 500 Sodium Chloride 0.9% 500 ml @ 250 mls/hr IV Q8H [facility] Rx#:[id number] cefTRIAXone 1 gm In 50 Sodium Chloride 0.9% 50 ml @ 100 mls/hr IV Q24HR [facility] Rx#:[id number] Oral 500 Other 750 Output: Urine 800 700 Other: # Voids 2 3 # Bowel Movements 0 Weight Source Bedscale Bedscale Active Medications: Current Medications Acetaminophen (Tylenol Extra Strength) 500 mg PO Q6HR PRN PRN Reason: FEVER Stop: 07/29/18 17:21 Last Admin: 06/06/18 08:27 Dose: 500 mg Albuterol/Ipratropium (Duoneb Neb) 3 ml HHN Q6HRT [facility] Stop: 07/31/18 18:59 Last Admin: 06/06/18 13:51 Dose: 3 ml Betamethasone/Clotrimazole (Lotrisone Cream) 1 appl TP BID [facility] Stop: 06/12/18 16:59 Last Admin: 06/06/18 08:24 Dose: 1 appl Ceftriaxone Sodium 1 gm/ (Sodium Chloride) 50 mls @ 100 mls/hr IV Q24HR [facility] Stop: 07/29/18 15:43 Last Infusion: 06/05/18 16:25 Dose: Infused Ibuprofen (Motrin) 800 mg PO TID PRN PRN Reason: MILD TO MOD. PAIN Stop: 07/29/18 17:16 Last Admin: 06/01/18 07:03 Dose: 800 mg Lactobacillus Rhamnosus (Culturelle 15b) 1 each PO DAILY [facility] Stop: 08/04/18 08:59 Last Admin: 06/06/18 08:24 Dose: 1 each Miscellaneous (Probiotic Screen) 1 ea MC PRN PRN PRN Reason: PROTOCOL Stop: 08/03/18 09:44 Miscellaneous (Non-Formulary Item) 5,000 ea IV ONCE [facility] Stop: 08/04/18 11:29 Morphine Sulfate (Morphine) 2 mg IV Q4HR PRN PRN Reason: Severe Pain Stop: 07/29/18 17:14 Last Admin: 06/06/18 08:25 Dose: 2 mg Ondansetron HCl (Zofran) 4 mg IV Q6H PRN PRN Reason: NAUSEA Stop: 07/29/18 17:29 General: no acute distress, well developed, well nourished HEENT: atraumatic, normocephalic, PERRLA Neck: supple, no thyromegaly, no lymphadenopathy Cardiovascular: S1S2, regular Lungs: clear to auscultation bilaterally, clear to percussion Abdomen: soft, no tender, no distended Extremities: no cyanosis, no clubbing Neurological: awake, alert, oriented Skin: intact - Procedures Procedures: Procedures Procedure Code Date DRAINAGE OF RIGHT PLEURAL CAVITY, PERC APPROACH, DIAGN [id number] 05/30/18 Infectious Disease Assmt/Plan - Assessment Assessment: 1. Pneumonmia. 2. PE. 3. DVT. 4. 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 - Plan Plan: Continue rocephin. Start TB meds and zithromax. wait for final id of the AFB/Mycobacteria. Check MTB PCR. TB GOld quantiferon, HIV screen. Check sputum for AFB x 3 Start RIPE treatment airborne isolation. Nutritional Asmnt/Malnutr-PDOC - Dietary Evaluation Malnutrition Findings (Please click <Entered> for more info): Nutritional Asmnt/Malnutrition Start: 06/03/18 11: 57 Text: Status: Complete Freq: Protocol: Document 06/03/18 12:44 KIMBERLYG (Rec: 06/03/18 12:48 LCLANA [email or web address]) Nutritional Asmnt/Malnutrition Patient General Information Nutritional Screening Moderate Risk Pertinent Medical Hx/Surgical Hx no sig medical hx, appendectomy, smokes about 15 cigarettes a day Subjective Information Pt seen lying in bed at time of visit, stating appetite so so. Pt consumed few breakfast today, has no food preference to give. Per EMR, PO intake 25 -50%. Per nurse, pt has DVT to right arm. Current Diet Order/ Nutrition Support regular Pertinent Medications vancomycin Pertinent Labs 05/30 Na 134, glucose 145, Ca 8. 4 Nutritional Hx/Data Height 1.83 m Height (Calculated Centimeters) 182.9 Current Weight (lbs) 87.09 kg Weight (Calculated Kilograms) 87.1 Weight (Calculated Grams) 30154.7 [place] Body Weight 178 Body Mass Index (BMI) 26.0 Weight Status Overweight GI Symptoms GI Symptoms None Last BM not indicated Difficult in: None Skin Integrity/Comment: intact Current %PO Poor (25-49%) Estimated Nutritional Goals BEE in Kcals: Using Current wt Calories/Kcals/Kg 25-30 based IBW 81kg Kcals Calculated 3316-4772 Protein: Using Current wt Protein g/k Protein Calculated 81 Fluid: ml 2024-243ml (1ml/kcal) Nutritional Problem 1. Problem Problem inadequate food intake Etiology decreased appetite Signs/Symptoms: PO intake 25-30% Malnutrition Alert Is there a minimum of two criteria No selected? Query Text:Check all the applicable criteria. A minimum of two criteria are recommended for diagnosis of either severe or non-severe malnutrition. Malnutrition Related to Morbid Obesity Malnutrition related to morbid obesity No Intervention/Recommendation Comments 1. Continue with current diet as ordered. Encouraged oral intake. 2. Monitor PO intake, wt, labs and skin integrity 3. F/U as moderate risk in 3-5 days, 06/06-06/08, PO check Expected Outcomes/Goals Expected Outcomes/Goals 1. PO intake to meet at least 75% of nutritional needs. 2. Wt stability, skin to remain intact, labs to approach WNL.
[2018-06-06] MEDS ORDERED: Azithromycin 250 MG in Sodium Chloride 0.9% 250 ML IV SCH (15:00)
[2018-06-06] MEDS: cefTRIAXone 1 GM in Sodium Chloride 0.9% 50 ML IV SCH (16:42)
[2018-06-06] MEDS: Azithromycin 500 MG in Sodium Chloride 0.9% 250 ML IV SCH (16:52)
--- NOTE | 2018-06-06 20:30 | General Progress Note ---
Subjective - Review of Systems Service Date: 06/06/18 Subjective: Patient seen and examined patient's sister (Danielle) was at the bedside. Patient is afebrile denied trouble breathing or chest pain. Objective - Results Result Diagrams: 06/06/18 04:20 06/06/18 04:20 Recent Labs: Laboratory Last Values WBC 5.0 Th/cmm (4.8-10.8) 06/06/18 04:20 RBC 3.54 Mil/cmm (4.30-5.70) L 06/06/18 04:20 Hgb 10.8 gm/dL (12-16) L 06/06/18 04:20 Hct 31.4 % (41.0-60) L 06/06/18 04:20 MCV 88.6 fl (80-99) 06/06/18 04:20 MCH 30.5 pg (26.0-30.0) H 06/06/18 04:20 MCHC Differential 34.5 pg (28.0-36.0) 06/06/18 04:20 RDW 13.0 % (11.5-20.0) 06/06/18 04:20 Plt Count 275 Th/cmm (150-400) 06/06/18 04:20 MPV 6.9 fl 06/06/18 04:20 Add Manual Diff YES 06/06/18 04:20 Neutrophils % 65.7 % (40.0-80.0) 06/01/18 15:05 Band Neutrophils % 1 % (0-10) 06/06/18 04:20 Lymphocytes % 18.7 % (20.0-50.0) L 06/01/18 15:05 Monocytes % 12.7 % (2.0-10.0) H 06/01/18 15:05 Eosinophils % 2.0 % (0.0-5.0) 06/01/18 15:05 Basophils % 0.9 % (0.0-2.0) 06/01/18 15:05 Neutrophils (Manual) 72 % (40-80) 06/06/18 04:20 Lymphocytes 20 % (20-50) 06/06/18 04:20 Monocytes 3 % (2-10) 06/06/18 04:20 Eosinophils 4 % (0-5) 06/06/18 04:20 Basophils 0 % (0-3) 06/05/18 08:00 Atypical Lymphocytes 5 % 06/06/18 04:20 Platelet Estimate ADEQUATE (NORMAL) 06/06/18 04:20 PT 10.8 SECONDS (9.5-11.5) 06/05/18 08:00 INR 1.04 (0.5-1.4) 06/05/18 08:00 PTT (Actin FS) 28.2 SECONDS (26.0-38.0) 06/05/18 08:00 D-Dimer 1240 ng/mL (100-400) H 05/30/18 10:00 Sodium 135 mEq/L (136-145) L 06/06/18 04:20 Potassium 3.6 mEq/L (3.5-5.1) 06/06/18 04:20 Chloride 104 mEq/L (98-107) 06/06/18 04:20 Carbon Dioxide 24.5 mEq/L (21.0-31.0) 06/06/18 04:20 Anion Gap 10.1 (7.0-16.0) 06/06/18 04:20 BUN 6 mg/dL (7-25) L 06/06/18 04:20 Creatinine 0.7 mg/dL (0.7-1.3) 06/06/18 04:20 Est GFR ( Amer) > 60.0 ml/min (>90) 06/06/18 04:20 Est GFR (Non-Af Amer) > 60.0 ml/min 06/06/18 04:20 BUN/Creatinine Ratio 8.6 06/06/18 04:20 Glucose 146 mg/dL (70-105) H 06/06/18 04:20 POC Glucose 100 MG/DL (70 - 105) 05/30/18 16:22 Calcium 7.9 mg/dL (8.6-10.3) L 06/06/18 04:20 Troponin I < 0.01 ng/mL (0.01-0.05) L 05/30/18 10:13 Fluid Glucose 106.0 mg/dL 06/05/18 10:45 Fluid Total Protein 3.3 g/dL 06/05/18 10:45 Fluid LDH 579 U/L 06/05/18 10:45 Vancomycin Trough 16.1 ug/mL (5-10) H 06/06/18 09:00 - Physical Exam Vitals and I&O: Vital Signs Temp 98.7 F 06/06/18 18:00 Pulse 89 06/06/18 19:12 Resp 18 06/06/18 19:12 BP 119/62 06/06/18 18:00 Pulse Ox 95 06/06/18 19:12 Intake & Output 06/06/18 06/06/18 06/07/18 06:59 18:59 06:59 Intake Total 1750 2650 Output Total 700 1400 Balance 1050 1250 Weight (lbs) 78.471 kg 78.273 kg Intake: Intake, IV Amount 1000 800 Azithromycin 500 mg In 250 Sodium Chloride 0.9% 250 ml @ 250 mls/hr IV Q24HR [facility] Rx#:[id number] Vancomycin HCl 1.5 gm In 1000 500 Sodium Chloride 0.9% 500 ml @ 250 mls/hr IV Q8H [facility] Rx#:[id number] cefTRIAXone 1 gm In 50 Sodium Chloride 0.9% 50 ml @ 100 mls/hr IV Q24HR [facility] Rx#:[id number] Oral 1850 Other 750 Output: Urine 700 1400 Other: # Voids 3 7 # Bowel Movements 0 0 Weight Source Bedscale Bedscale Active Medications: Current Medications Acetaminophen (Tylenol Extra Strength) 500 mg PO Q6HR PRN PRN Reason: FEVER Stop: 07/29/18 17:21 Last Admin: 06/06/18 16:41 Dose: 500 mg Albuterol/Ipratropium (Duoneb Neb) 3 ml HHN Q6HRT [facility] Stop: 07/31/18 18:59 Last Admin: 06/06/18 19:12 Dose: 3 ml Betamethasone/Clotrimazole (Lotrisone Cream) 1 appl TP BID [facility] Stop: 06/12/18 16:59 Last Admin: 06/06/18 16:56 Dose: 1 appl Ethambutol HCl (Myambutol) 1,200 mg PO DAILY [facility] Stop: 08/05/18 15:14 Last Admin: 06/06/18 16:05 Dose: 1,200 mg Ceftriaxone Sodium 1 gm/ (Sodium Chloride) 50 mls @ 100 mls/hr IV Q24HR [facility] Stop: 07/29/18 15:43 Last Infusion: 06/06/18 17:15 Dose: Infused Azithromycin 500 mg/ Sodium (Chloride) 250 mls @ 250 mls/hr IV Q24HR [facility] Stop: 08/05/18 15:59 Last Infusion: 06/06/18 17:55 Dose: Infused Ibuprofen (Motrin) 800 mg PO TID PRN PRN Reason: MILD TO MOD. PAIN Stop: 07/29/18 17:16 Last Admin: 06/01/18 07:03 Dose: 800 mg Isoniazid (Inh) 300 mg PO DAILY [facility] Stop: 08/05/18 14:59 Last Admin: 06/06/18 15:50 Dose: 300 mg Lactobacillus Rhamnosus (Culturelle 15b) 1 each PO DAILY [facility] Stop: 08/04/18 08:59 Last Admin: 06/06/18 08:24 Dose: 1 each Miscellaneous (Probiotic Screen) 1 ea MC PRN PRN PRN Reason: PROTOCOL Stop: 08/03/18 09:44 Miscellaneous (Non-Formulary Item) 5,000 ea IV ONCE [facility] Stop: 08/04/18 11:29 Morphine Sulfate (Morphine) 2 mg IV Q4HR PRN PRN Reason: Severe Pain Stop: 07/29/18 17:14 Last Admin: 06/06/18 20:10 Dose: 2 mg Ondansetron HCl (Zofran) 4 mg IV Q6H PRN PRN Reason: NAUSEA Stop: 07/29/18 17:29 Pyrazinamide (Pza) 1,500 mg PO DAILY [facility] Stop: 08/05/18 15:14 Last Admin: 06/06/18 16:00 Dose: 1,500 mg Pyridoxine HCl (Vitamin B6) 50 mg PO DAILY [facility] Stop: 08/06/18 08:59 Rifampin (Rifadin) 600 mg PO DAILY [facility] Stop: 08/06/18 08:59 General: Alert Cardiovascular: Regular rate Lungs: Other (rales) Extremities: no Edema - Procedures Procedures: Procedures Procedure Code Date DRAINAGE OF RIGHT PLEURAL CAVITY, PERC APPROACH, DIAGN [id number] 05/30/18 Assessment/Plan - Assessment Assessment: Bilateral PE pneumonia Hemorrhagic pleural effusion s/p thoracentesis Right UE DVT Dermatitis on the back - Plan Plan: ID specialist on the case Dr Jorge Yao discovered that patient had sputum collected on the last visit came back positive for AFB so patient was put on air borne isolation and TB workup was initiated. I discussed this findings also with the Pulmonary (Dr Moseley_ and Pathologist ( Dr Pimentel ) over the phone. TB work up inititated per ID recomendations. ID started patient on Anti TB medications. pending final result. I discussed this findings in details with patient and his sister at the bedside. They both verbalized understanding. I also explained patient that we need to wait for three sputum AFB result to confirm whether he has active TB or not. Also waiting for the Pleural fluid AFB with PCR and TB Gold interferon. Meantime we will continue antibiotics . Anticogaulation per Hematology recomendation. Pending final Pleural fluids culture and cytology. Plan of care discussed with the nursing staff. Nutritional Asmnt/Malnutr-PDOC - Dietary Evaluation Malnutrition Findings (Please click <Entered> for more info): Nutritional Asmnt/Malnutrition Start: 06/03/18 11: 57 Text: Status: Complete Freq: Protocol: Document 06/03/18 12:44 LCHARJITG (Rec: 06/03/18 12:48 LCHARJITG [email or web address]) Nutritional Asmnt/Malnutrition Patient General Information Nutritional Screening Moderate Risk Pertinent Medical Hx/Surgical Hx no sig medical hx, appendectomy, smokes about 15 cigarettes a day Subjective Information Pt seen lying in bed at time of visit, stating appetite so so. Pt consumed few breakfast today, has no food preference to give. Per EMR, PO intake 25 -50%. Per nurse, pt has DVT to right arm. Current Diet Order/ Nutrition Support regular Pertinent Medications vancomycin Pertinent Labs 05/30 Na 134, glucose 145, Ca 8. 4 Nutritional Hx/Data Height 1.83 m Height (Calculated Centimeters) 182.9 Current Weight (lbs) 87.09 kg Weight (Calculated Kilograms) 87.1 Weight (Calculated Grams) 27324.7 [place] Body Weight 178 Body Mass Index (BMI) 26.0 Weight Status Overweight GI Symptoms GI Symptoms None Last BM not indicated Difficult in: None Skin Integrity/Comment: intact Current %PO Poor (25-49%) Estimated Nutritional Goals BEE in Kcals: Using Current wt Calories/Kcals/Kg 25-30 based IBW 81kg Kcals Calculated 9873-3195 Protein: Using Current wt Protein g/k Protein Calculated 81 Fluid: ml 2024-2430ml (1ml/kcal) Nutritional Problem 1. Problem Problem inadequate food intake Etiology decreased appetite Signs/Symptoms: PO intake 25-30% Malnutrition Alert Is there a minimum of two criteria No selected? Query Text:Check all the applicable criteria. A minimum of two criteria are recommended for diagnosis of either severe or non-severe malnutrition. Malnutrition Related to Morbid Obesity Malnutrition related to morbid obesity No Intervention/Recommendation Comments 1. Continue with current diet as ordered. Encouraged oral intake. 2. Monitor PO intake, wt, labs and skin integrity 3. F/U as moderate risk in 3-5 days, 06/06-06/08, PO check Expected Outcomes/Goals Expected Outcomes/Goals 1. PO intake to meet at least 75% of nutritional needs. 2. Wt stability, skin to remain intact, labs to approach WNL.
[2018-06-07] MEDS: Acetaminophen 500 MG TAB PO PRN ×2 (00:01→23:33)
[2018-06-07] MEDS: Morphine Sulfate 2 mg/mL 1mL Syr IV PRN ×5 (00:34→23:12)
[2018-06-07] MEDS: Albuterol/Ipratropium Neb 3 ML AERS HHN SCH ×4 (00:35→19:12)
[2018-06-07 04:25] LABS: % BASOPHILS 0.9 % (0.0-2.0); % EOSINOPHILS 4.2 % (0.0-5.0); % LYMPHOCYTES 18.2 % (20.0-50.0); % MONOCYTES 5.9 % (2.0-10.0); % NEUTROPHILS 70.8 % (40.0-80.0); EOSINOPHILE ABSOLUTE 0.2 Th/cmm (0.1-0.4); HEMATOCRIT 33.1 % (41.0-60); HEMOGLOBIN 11.3 gm/dL (12-16); LYMPHOCYTE ABSOLUTE 0.9 Th/cmm (1.5-3.0); MEAN CELL VOLUME 89.1 fl (80-99); MEAN CORPUSCULAR HEMOGLOBIN 30.5 pg (26.0-30.0); MEAN CORPUSCULAR HGB CONC 34.2 pg (28.0-36.0); MEAN PLATELET VOLUME 6.9 fl; MONOCYTE ABSOLUTE 0.3 Th/cmm (0.3-1.0); NEUTROPHILE ABSOLUTE 3.3 Th/cmm (1.8-8.0); PLATELET COUNT 297 Th/cmm (150-400); RED BLOOD COUNT 3.72 Mil/cmm (4.30-5.70); RED CELL DISTRIBUTION WIDTH 12.9 % (11.5-20.0); WHITE BLOOD COUNT 4.7 Th/cmm (4.8-10.8)
[2018-06-07] MEDS: Betamethasone/Clotrimazole Cream 15 gm Tube TP SCH ×2 (08:28→16:51)
[2018-06-07] MEDS: Lactobacillus Rhamnosus GG 15 Billion CFU CAP.SPRINK PO SCH (08:29)
[2018-06-07] MEDS ORDERED: Rifampin 300 mg Cap PO SCH (09:00)
--- NOTE | 2018-06-07 10:14 | Diagnostic Imaging Report ---
Portable chest x-ray HISTORY: Shortness of breath Compared to prior exam of 06/06/2018, no change in abnormal density within the right upper hemithorax related to both pleural and parenchymal components visualized on an earlier CT scan of 06/09/2018. Mild pleural reaction noted about the left costophrenic angle unchanged. IMPRESSION: 1. No significant change in the cardiopulmonary status.
[2018-06-07] MEDS: cefTRIAXone 1 GM in Sodium Chloride 0.9% 50 ML IV SCH (15:27)
[2018-06-07] MEDS: Azithromycin 500 MG in Sodium Chloride 0.9% 250 ML IV SCH (16:04)
--- NOTE | 2018-06-07 17:21 | General Progress Note ---
Subjective - Review of Systems Service Date: 06/06/18 Subjective: still chest pain s/p thoracentsis, bloody effusion Objective - Results Result Diagrams: 06/07/18 04:15 06/06/18 04:20 Recent Labs: Laboratory Last Values WBC 4.7 Th/cmm (4.8-10.8) L 06/07/18 04:15 RBC 3.72 Mil/cmm (4.30-5.70) L 06/07/18 04:15 Hgb 11.3 gm/dL (12-16) L 06/07/18 04:15 Hct 33.1 % (41.0-60) L 06/07/18 04:15 MCV 89.1 fl (80-99) 06/07/18 04:15 MCH 30.5 pg (26.0-30.0) H 06/07/18 04:15 MCHC Differential 34.2 pg (28.0-36.0) 06/07/18 04:15 RDW 12.9 % (11.5-20.0) 06/07/18 04:15 Plt Count 297 Th/cmm (150-400) 06/07/18 04:15 MPV 6.9 fl 06/07/18 04:15 Add Manual Diff YES 06/06/18 04:20 Neutrophils % 70.8 % (40.0-80.0) 06/07/18 04:15 Band Neutrophils % 1 % (0-10) 06/06/18 04:20 Lymphocytes % 18.2 % (20.0-50.0) L 06/07/18 04:15 Monocytes % 5.9 % (2.0-10.0) 06/07/18 04:15 Eosinophils % 4.2 % (0.0-5.0) 06/07/18 04:15 Basophils % 0.9 % (0.0-2.0) 06/07/18 04:15 Neutrophils (Manual) 72 % (40-80) 06/06/18 04:20 Lymphocytes 20 % (20-50) 06/06/18 04:20 Monocytes 3 % (2-10) 06/06/18 04:20 Eosinophils 4 % (0-5) 06/06/18 04:20 Basophils 0 % (0-3) 06/05/18 08:00 Atypical Lymphocytes 5 % 06/06/18 04:20 Platelet Estimate ADEQUATE (NORMAL) 06/06/18 04:20 PT 10.8 SECONDS (9.5-11.5) 06/05/18 08:00 INR 1.04 (0.5-1.4) 06/05/18 08:00 PTT (Actin FS) 28.2 SECONDS (26.0-38.0) 06/05/18 08:00 D-Dimer 1240 ng/mL (100-400) H 05/30/18 10:00 Sodium 135 mEq/L (136-145) L 06/06/18 04:20 Potassium 3.6 mEq/L (3.5-5.1) 06/06/18 04:20 Chloride 104 mEq/L (98-107) 06/06/18 04:20 Carbon Dioxide 24.5 mEq/L (21.0-31.0) 06/06/18 04:20 Anion Gap 10.1 (7.0-16.0) 06/06/18 04:20 BUN 6 mg/dL (7-25) L 06/06/18 04:20 Creatinine 0.7 mg/dL (0.7-1.3) 06/06/18 04:20 Est GFR ( Amer) > 60.0 ml/min (>90) 06/06/18 04:20 Est GFR (Non-Af Amer) > 60.0 ml/min 06/06/18 04:20 BUN/Creatinine Ratio 8.6 06/06/18 04:20 Glucose 146 mg/dL (70-105) H 06/06/18 04:20 POC Glucose 100 MG/DL (70 - 105) 05/30/18 16:22 Calcium 7.9 mg/dL (8.6-10.3) L 06/06/18 04:20 Troponin I < 0.01 ng/mL (0.01-0.05) L 05/30/18 10:13 Fluid Glucose 106.0 mg/dL 06/05/18 10:45 Fluid Total Protein 3.3 g/dL 06/05/18 10:45 Fluid LDH 579 U/L 06/05/18 10:45 Vancomycin Trough 16.1 ug/mL (5-10) H 06/06/18 09:00 HIV 1&2 Antibody Screen NEGATIVE (NEG) 06/07/18 04:15 - Physical Exam Vitals and I&O: Vital Signs Temp 98.5 F 06/07/18 14:00 Pulse 72 06/07/18 16:00 Resp 23 06/07/18 16:00 BP 107/56 06/07/18 16:00 Pulse Ox 96 06/07/18 16:00 Intake & Output 06/06/18 06/07/18 06/07/18 18:59 06:59 18:59 Intake Total 2650 200 300 Output Total 1400 1100 Balance 1250 -900 300 Weight (lbs) 78.273 kg 78.273 kg Intake: Intake, IV Amount 800 300 Azithromycin 500 mg In 250 250 Sodium Chloride 0.9% 250 ml @ 250 mls/hr IV Q24HR [facility] Rx#:[id number] Vancomycin HCl 1.5 gm In 500 Sodium Chloride 0.9% 500 ml @ 250 mls/hr IV Q8H [facility] Rx#:[id number] cefTRIAXone 1 gm In 50 50 Sodium Chloride 0.9% 50 ml @ 100 mls/hr IV Q24HR [facility] Rx#:[id number] Oral 1850 200 Output: Urine 1400 1100 Other: # Voids 7 # Bowel Movements 0 1 Stool Characteristics Soft Brown Weight Source Bedscale Bedscale Active Medications: Current Medications Acetaminophen (Tylenol Extra Strength) 500 mg PO Q6HR PRN PRN Reason: FEVER Stop: 07/29/18 17:21 Last Admin: 06/07/18 00:01 Dose: 500 mg Albuterol/Ipratropium (Duoneb Neb) 3 ml HHN Q6HRT [facility] Stop: 07/31/18 18:59 Last Admin: 06/07/18 13:23 Dose: 3 ml Betamethasone/Clotrimazole (Lotrisone Cream) 1 appl TP BID [facility] Stop: 06/12/18 16:59 Last Admin: 06/07/18 16:51 Dose: 1 appl Enoxaparin Sodium (Lovenox) 80 mg SUBQ Q12HR [facility] Stop: 08/06/18 15:59 Ethambutol HCl (Myambutol) 1,200 mg PO DAILY [facility] Stop: 08/05/18 15:14 Last Admin: 06/07/18 08:29 Dose: 1,200 mg Ceftriaxone Sodium 1 gm/ (Sodium Chloride) 50 mls @ 100 mls/hr IV Q24HR [facility] Stop: 07/29/18 15:43 Last Infusion: 06/07/18 16:04 Dose: Infused Azithromycin 500 mg/ Sodium (Chloride) 250 mls @ 250 mls/hr IV Q24HR [facility] Stop: 08/05/18 15:59 Last Infusion: 06/07/18 17:07 Dose: Infused Ibuprofen (Motrin) 800 mg PO TID PRN PRN Reason: MILD TO MOD. PAIN Stop: 07/29/18 17:16 Last Admin: 06/07/18 08:46 Dose: 800 mg Isoniazid (Inh) 300 mg PO DAILY [facility] Stop: 08/05/18 14:59 Last Admin: 06/07/18 08:36 Dose: 300 mg Lactobacillus Rhamnosus (Culturelle 15b) 1 each PO DAILY [facility] Stop: 08/04/18 08:59 Last Admin: 06/07/18 08:29 Dose: 1 each Miscellaneous (Probiotic Screen) 1 ea MC PRN PRN PRN Reason: PROTOCOL Stop: 08/03/18 09:44 Morphine Sulfate (Morphine) 2 mg IV Q4HR PRN PRN Reason: Severe Pain Stop: 07/29/18 17:14 Last Admin: 06/07/18 13:21 Dose: 2 mg Ondansetron HCl (Zofran) 4 mg IV Q6H PRN PRN Reason: NAUSEA Stop: 07/29/18 17:29 Pyrazinamide (Pza) 1,500 mg PO DAILY [facility] Stop: 08/05/18 15:14 Last Admin: 06/07/18 08:29 Dose: 1,500 mg Pyridoxine HCl (Vitamin B6) 50 mg PO DAILY [facility] Stop: 08/06/18 08:59 Last Admin: 06/07/18 08:28 Dose: 50 mg Rifampin (Rifadin) 600 mg PO DAILY [facility] Stop: 08/06/18 08:59 Last Admin: 06/07/18 08:29 Dose: 600 mg General: Alert HEENT: Atraumatic Neck: Supple Cardiovascular: Regular rate Lungs: Other (rales) Abdomen: Soft Extremities: no Edema Skin: Rash - Procedures Procedures: Procedures Procedure Code Date DRAINAGE OF RIGHT PLEURAL CAVITY, PERC APPROACH, DIAGN [id number] 05/30/18 Assessment/Plan - Assessment Assessment: * right lung consolidation and effusion * multiple bilateral pulmonary emboli * right upper ext thrombosis Continue eliquis and antibiotics and follow imaging for resolution; Continue iv antibiotics. 06/05: undergoing thoracentesis; last Eliquis was 24hrs ago, I'll give Kcentra to reverse Eliquis. may need bronchoscopy/biopsy if no resolution 06/06: hgb stable, cxr stable; dw Dr. Moseley, keep off anticoagulation one more day Nutritional Asmnt/Malnutr-PDOC - Dietary Evaluation Malnutrition Findings (Please click <Entered> for more info): Nutritional Asmnt/Malnutrition Start: 06/03/18 11: 57 Text: Status: Complete Freq: Protocol: Document 06/03/18 12:44 [email or web address] (Rec: 06/03/18 12:48 [email or web address] [email or web address]) Nutritional Asmnt/Malnutrition Patient General Information Nutritional Screening Moderate Risk Pertinent Medical Hx/Surgical Hx no sig medical hx, appendectomy, smokes about 15 cigarettes a day Subjective Information Pt seen lying in bed at time of visit, stating appetite so so. Pt consumed few breakfast today, has no food preference to give. Per EMR, PO intake 25 -50%. Per nurse, pt has DVT to right arm. Current Diet Order/ Nutrition Support regular Pertinent Medications vancomycin Pertinent Labs 05/30 Na 134, glucose 145, Ca 8. 4 Nutritional Hx/Data Height 1.83 m Height (Calculated Centimeters) 182.9 Current Weight (lbs) 87.09 kg Weight (Calculated Kilograms) 87.1 Weight (Calculated Grams) 20978.7 [place] Body Weight 178 Body Mass Index (BMI) 26.0 Weight Status Overweight GI Symptoms GI Symptoms None Last BM not indicated Difficult in: None Skin Integrity/Comment: intact Current %PO Poor (25-49%) Estimated Nutritional Goals BEE in Kcals: Using Current wt Calories/Kcals/Kg 25-30 based IBW 81kg Kcals Calculated 2943-5342 Protein: Using Current wt Protein g/k Protein Calculated 81 Fluid: ml 2024-243ml (1ml/kcal) Nutritional Problem 1. Problem Problem inadequate food intake Etiology decreased appetite Signs/Symptoms: PO intake 25-30% Malnutrition Alert Is there a minimum of two criteria No selected? Query Text:Check all the applicable criteria. A minimum of two criteria are recommended for diagnosis of either severe or non-severe malnutrition. Malnutrition Related to Morbid Obesity Malnutrition related to morbid obesity No Intervention/Recommendation Comments 1. Continue with current diet as ordered. Encouraged oral intake. 2. Monitor PO intake, wt, labs and skin integrity 3. F/U as moderate risk in 3-5 days, 06/06-06/08, PO check Expected Outcomes/Goals Expected Outcomes/Goals 1. PO intake to meet at least 75% of nutritional needs. 2. Wt stability, skin to remain intact, labs to approach WNL.
--- NOTE | 2018-06-07 17:22 | General Progress Note ---
Subjective - Review of Systems Service Date: 06/07/18 Subjective: still chest pain s/p thoracentsis, bloody effusion Objective - Results Result Diagrams: 06/07/18 04:15 06/06/18 04:20 Recent Labs: Laboratory Last Values WBC 4.7 Th/cmm (4.8-10.8) L 06/07/18 04:15 RBC 3.72 Mil/cmm (4.30-5.70) L 06/07/18 04:15 Hgb 11.3 gm/dL (12-16) L 06/07/18 04:15 Hct 33.1 % (41.0-60) L 06/07/18 04:15 MCV 89.1 fl (80-99) 06/07/18 04:15 MCH 30.5 pg (26.0-30.0) H 06/07/18 04:15 MCHC Differential 34.2 pg (28.0-36.0) 06/07/18 04:15 RDW 12.9 % (11.5-20.0) 06/07/18 04:15 Plt Count 297 Th/cmm (150-400) 06/07/18 04:15 MPV 6.9 fl 06/07/18 04:15 Add Manual Diff YES 06/06/18 04:20 Neutrophils % 70.8 % (40.0-80.0) 06/07/18 04:15 Band Neutrophils % 1 % (0-10) 06/06/18 04:20 Lymphocytes % 18.2 % (20.0-50.0) L 06/07/18 04:15 Monocytes % 5.9 % (2.0-10.0) 06/07/18 04:15 Eosinophils % 4.2 % (0.0-5.0) 06/07/18 04:15 Basophils % 0.9 % (0.0-2.0) 06/07/18 04:15 Neutrophils (Manual) 72 % (40-80) 06/06/18 04:20 Lymphocytes 20 % (20-50) 06/06/18 04:20 Monocytes 3 % (2-10) 06/06/18 04:20 Eosinophils 4 % (0-5) 06/06/18 04:20 Basophils 0 % (0-3) 06/05/18 08:00 Atypical Lymphocytes 5 % 06/06/18 04:20 Platelet Estimate ADEQUATE (NORMAL) 06/06/18 04:20 PT 10.8 SECONDS (9.5-11.5) 06/05/18 08:00 INR 1.04 (0.5-1.4) 06/05/18 08:00 PTT (Actin FS) 28.2 SECONDS (26.0-38.0) 06/05/18 08:00 D-Dimer 1240 ng/mL (100-400) H 05/30/18 10:00 Sodium 135 mEq/L (136-145) L 06/06/18 04:20 Potassium 3.6 mEq/L (3.5-5.1) 06/06/18 04:20 Chloride 104 mEq/L (98-107) 06/06/18 04:20 Carbon Dioxide 24.5 mEq/L (21.0-31.0) 06/06/18 04:20 Anion Gap 10.1 (7.0-16.0) 06/06/18 04:20 BUN 6 mg/dL (7-25) L 06/06/18 04:20 Creatinine 0.7 mg/dL (0.7-1.3) 06/06/18 04:20 Est GFR ( Amer) > 60.0 ml/min (>90) 06/06/18 04:20 Est GFR (Non-Af Amer) > 60.0 ml/min 06/06/18 04:20 BUN/Creatinine Ratio 8.6 06/06/18 04:20 Glucose 146 mg/dL (70-105) H 06/06/18 04:20 POC Glucose 100 MG/DL (70 - 105) 05/30/18 16:22 Calcium 7.9 mg/dL (8.6-10.3) L 06/06/18 04:20 Troponin I < 0.01 ng/mL (0.01-0.05) L 05/30/18 10:13 Fluid Glucose 106.0 mg/dL 06/05/18 10:45 Fluid Total Protein 3.3 g/dL 06/05/18 10:45 Fluid LDH 579 U/L 06/05/18 10:45 Vancomycin Trough 16.1 ug/mL (5-10) H 06/06/18 09:00 HIV 1&2 Antibody Screen NEGATIVE (NEG) 06/07/18 04:15 - Physical Exam Vitals and I&O: Vital Signs Temp 98.5 F 06/07/18 14:00 Pulse 72 06/07/18 16:00 Resp 23 06/07/18 16:00 BP 107/56 06/07/18 16:00 Pulse Ox 96 06/07/18 16:00 Intake & Output 06/06/18 06/07/18 06/07/18 18:59 06:59 18:59 Intake Total 2650 200 300 Output Total 1400 1100 Balance 1250 -900 300 Weight (lbs) 78.273 kg 78.273 kg Intake: Intake, IV Amount 800 300 Azithromycin 500 mg In 250 250 Sodium Chloride 0.9% 250 ml @ 250 mls/hr IV Q24HR [facility] Rx#:[id number] Vancomycin HCl 1.5 gm In 500 Sodium Chloride 0.9% 500 ml @ 250 mls/hr IV Q8H [facility] Rx#:[id number] cefTRIAXone 1 gm In 50 50 Sodium Chloride 0.9% 50 ml @ 100 mls/hr IV Q24HR [facility] Rx#:[id number] Oral 1850 200 Output: Urine 1400 1100 Other: # Voids 7 # Bowel Movements 0 1 Stool Characteristics Soft Brown Weight Source Bedscale Bedscale Active Medications: Current Medications Acetaminophen (Tylenol Extra Strength) 500 mg PO Q6HR PRN PRN Reason: FEVER Stop: 07/29/18 17:21 Last Admin: 06/07/18 00:01 Dose: 500 mg Albuterol/Ipratropium (Duoneb Neb) 3 ml HHN Q6HRT [facility] Stop: 07/31/18 18:59 Last Admin: 06/07/18 13:23 Dose: 3 ml Betamethasone/Clotrimazole (Lotrisone Cream) 1 appl TP BID [facility] Stop: 06/12/18 16:59 Last Admin: 06/07/18 16:51 Dose: 1 appl Enoxaparin Sodium (Lovenox) 80 mg SUBQ Q12HR [facility] Stop: 08/06/18 15:59 Ethambutol HCl (Myambutol) 1,200 mg PO DAILY [facility] Stop: 08/05/18 15:14 Last Admin: 06/07/18 08:29 Dose: 1,200 mg Ceftriaxone Sodium 1 gm/ (Sodium Chloride) 50 mls @ 100 mls/hr IV Q24HR [facility] Stop: 07/29/18 15:43 Last Infusion: 06/07/18 16:04 Dose: Infused Azithromycin 500 mg/ Sodium (Chloride) 250 mls @ 250 mls/hr IV Q24HR [facility] Stop: 08/05/18 15:59 Last Infusion: 06/07/18 17:07 Dose: Infused Ibuprofen (Motrin) 800 mg PO TID PRN PRN Reason: MILD TO MOD. PAIN Stop: 07/29/18 17:16 Last Admin: 06/07/18 08:46 Dose: 800 mg Isoniazid (Inh) 300 mg PO DAILY [facility] Stop: 08/05/18 14:59 Last Admin: 06/07/18 08:36 Dose: 300 mg Lactobacillus Rhamnosus (Culturelle 15b) 1 each PO DAILY [facility] Stop: 08/04/18 08:59 Last Admin: 06/07/18 08:29 Dose: 1 each Miscellaneous (Probiotic Screen) 1 ea MC PRN PRN PRN Reason: PROTOCOL Stop: 08/03/18 09:44 Morphine Sulfate (Morphine) 2 mg IV Q4HR PRN PRN Reason: Severe Pain Stop: 07/29/18 17:14 Last Admin: 06/07/18 13:21 Dose: 2 mg Ondansetron HCl (Zofran) 4 mg IV Q6H PRN PRN Reason: NAUSEA Stop: 07/29/18 17:29 Pyrazinamide (Pza) 1,500 mg PO DAILY [facility] Stop: 08/05/18 15:14 Last Admin: 06/07/18 08:29 Dose: 1,500 mg Pyridoxine HCl (Vitamin B6) 50 mg PO DAILY [facility] Stop: 08/06/18 08:59 Last Admin: 06/07/18 08:28 Dose: 50 mg Rifampin (Rifadin) 600 mg PO DAILY [facility] Stop: 08/06/18 08:59 Last Admin: 06/07/18 08:29 Dose: 600 mg General: Alert HEENT: Atraumatic Neck: Supple Cardiovascular: Regular rate Lungs: Other (rales) Abdomen: Soft Extremities: no Edema Skin: Rash - Procedures Procedures: Procedures Procedure Code Date DRAINAGE OF RIGHT PLEURAL CAVITY, PERC APPROACH, DIAGN [id number] 05/30/18 Assessment/Plan - Assessment Assessment: * right lung consolidation and effusion * multiple bilateral pulmonary emboli * right upper ext thrombosis Continue eliquis and antibiotics and follow imaging for resolution; Continue iv antibiotics. 06/05: undergoing thoracentesis; last Eliquis was 24hrs ago, I'll give Kcentra to reverse Eliquis. may need bronchoscopy/biopsy if no resolution 06/06: hgb stable, cxr stable; cyndi Moseley, keep off anticoagulation one more day 06/07: hgb better. on isolation for AFB positive culure sputum. Restart Lovenox. cyndi Moseley Nutritional Asmnt/Malnutr-PDOC - Dietary Evaluation Malnutrition Findings (Please click <Entered> for more info): Nutritional Asmnt/Malnutrition Start: 06/03/18 11: 57 Text: Status: Complete Freq: Protocol: Document 06/03/18 12:44 [email or web address] (Rec: 06/03/18 12:48 HEN [email or web address]) Nutritional Asmnt/Malnutrition Patient General Information Nutritional Screening Moderate Risk Pertinent Medical Hx/Surgical Hx no sig medical hx, appendectomy, smokes about 15 cigarettes a day Subjective Information Pt seen lying in bed at time of visit, stating appetite so so. Pt consumed few breakfast today, has no food preference to give. Per EMR, PO intake 25 -50%. Per nurse, pt has DVT to right arm. Current Diet Order/ Nutrition Support regular Pertinent Medications vancomycin Pertinent Labs 05/30 Na 134, glucose 145, Ca 8. 4 Nutritional Hx/Data Height 1.83 m Height (Calculated Centimeters) 182.9 Current Weight (lbs) 87.09 kg Weight (Calculated Kilograms) 87.1 Weight (Calculated Grams) 15343.7 [place] Body Weight 178 Body Mass Index (BMI) 26.0 Weight Status Overweight GI Symptoms GI Symptoms None Last BM not indicated Difficult in: None Skin Integrity/Comment: intact Current %PO Poor (25-49%) Estimated Nutritional Goals BEE in Kcals: Using Current wt Calories/Kcals/Kg 25-30 based IBW 81kg Kcals Calculated 5791-0294 Protein: Using Current wt Protein g/k Protein Calculated 81 Fluid: ml 2024-243ml (1ml/kcal) Nutritional Problem 1. Problem Problem inadequate food intake Etiology decreased appetite Signs/Symptoms: PO intake 25-30% Malnutrition Alert Is there a minimum of two criteria No selected? Query Text:Check all the applicable criteria. A minimum of two criteria are recommended for diagnosis of either severe or non-severe malnutrition. Malnutrition Related to Morbid Obesity Malnutrition related to morbid obesity No Intervention/Recommendation Comments 1. Continue with current diet as ordered. Encouraged oral intake. 2. Monitor PO intake, wt, labs and skin integrity 3. F/U as moderate risk in 3-5 days, 06/06-06/08, PO check Expected Outcomes/Goals Expected Outcomes/Goals 1. PO intake to meet at least 75% of nutritional needs. 2. Wt stability, skin to remain intact, labs to approach WNL.
[2018-06-07] MEDS: Enoxaparin 80 mg/0.8 mL 0.8mL Syr SUBQ SCH (17:26)
--- NOTE | 2018-06-07 20:47 | General Progress Note ---
Subjective - Review of Systems Service Date: 06/07/18 Subjective: Patient seen and examined with airborne isolation patient stated he is doing better Objective - Results Result Diagrams: 06/07/18 04:15 06/06/18 04:20 Recent Labs: Laboratory Last Values WBC 4.7 Th/cmm (4.8-10.8) L 06/07/18 04:15 RBC 3.72 Mil/cmm (4.30-5.70) L 06/07/18 04:15 Hgb 11.3 gm/dL (12-16) L 06/07/18 04:15 Hct 33.1 % (41.0-60) L 06/07/18 04:15 MCV 89.1 fl (80-99) 06/07/18 04:15 MCH 30.5 pg (26.0-30.0) H 06/07/18 04:15 MCHC Differential 34.2 pg (28.0-36.0) 06/07/18 04:15 RDW 12.9 % (11.5-20.0) 06/07/18 04:15 Plt Count 297 Th/cmm (150-400) 06/07/18 04:15 MPV 6.9 fl 06/07/18 04:15 Add Manual Diff YES 06/06/18 04:20 Neutrophils % 70.8 % (40.0-80.0) 06/07/18 04:15 Band Neutrophils % 1 % (0-10) 06/06/18 04:20 Lymphocytes % 18.2 % (20.0-50.0) L 06/07/18 04:15 Monocytes % 5.9 % (2.0-10.0) 06/07/18 04:15 Eosinophils % 4.2 % (0.0-5.0) 06/07/18 04:15 Basophils % 0.9 % (0.0-2.0) 06/07/18 04:15 Neutrophils (Manual) 72 % (40-80) 06/06/18 04:20 Lymphocytes 20 % (20-50) 06/06/18 04:20 Monocytes 3 % (2-10) 06/06/18 04:20 Eosinophils 4 % (0-5) 06/06/18 04:20 Basophils 0 % (0-3) 06/05/18 08:00 Atypical Lymphocytes 5 % 06/06/18 04:20 Platelet Estimate ADEQUATE (NORMAL) 06/06/18 04:20 PT 10.8 SECONDS (9.5-11.5) 06/05/18 08:00 INR 1.04 (0.5-1.4) 06/05/18 08:00 PTT (Actin FS) 28.2 SECONDS (26.0-38.0) 06/05/18 08:00 D-Dimer 1240 ng/mL (100-400) H 05/30/18 10:00 Sodium 135 mEq/L (136-145) L 06/06/18 04:20 Potassium 3.6 mEq/L (3.5-5.1) 06/06/18 04:20 Chloride 104 mEq/L (98-107) 06/06/18 04:20 Carbon Dioxide 24.5 mEq/L (21.0-31.0) 06/06/18 04:20 Anion Gap 10.1 (7.0-16.0) 06/06/18 04:20 BUN 6 mg/dL (7-25) L 06/06/18 04:20 Creatinine 0.7 mg/dL (0.7-1.3) 06/06/18 04:20 Est GFR ( Amer) > 60.0 ml/min (>90) 06/06/18 04:20 Est GFR (Non-Af Amer) > 60.0 ml/min 06/06/18 04:20 BUN/Creatinine Ratio 8.6 06/06/18 04:20 Glucose 146 mg/dL (70-105) H 06/06/18 04:20 POC Glucose 100 MG/DL (70 - 105) 05/30/18 16:22 Calcium 7.9 mg/dL (8.6-10.3) L 06/06/18 04:20 Troponin I < 0.01 ng/mL (0.01-0.05) L 05/30/18 10:13 Fluid Glucose 106.0 mg/dL 06/05/18 10:45 Fluid Total Protein 3.3 g/dL 06/05/18 10:45 Fluid LDH 579 U/L 06/05/18 10:45 Vancomycin Trough 16.1 ug/mL (5-10) H 06/06/18 09:00 HIV 1&2 Antibody Screen NEGATIVE (NEG) 06/07/18 04:15 - Physical Exam Vitals and I&O: Vital Signs Temp 97.3 F 06/07/18 20:00 Pulse 93 06/07/18 20:00 Resp 26 06/07/18 20:00 BP 105/54 06/07/18 20:00 Pulse Ox 93 06/07/18 20:00 Intake & Output 06/07/18 06/07/18 06/08/18 06:59 18:59 06:59 Intake Total 200 300 500 Output Total 1100 800 Balance -900 300 -300 Weight (lbs) 78.273 kg 78.426 kg Intake: Intake, IV Amount 300 Azithromycin 500 mg In 250 Sodium Chloride 0.9% 250 ml @ 250 mls/hr IV Q24HR [facility] Rx#:[id number] cefTRIAXone 1 gm In 50 Sodium Chloride 0.9% 50 ml @ 100 mls/hr IV Q24HR [facility] Rx#:[id number] Oral 200 500 Output: Urine 1100 800 Other: # Voids 4 # Bowel Movements 1 Stool Characteristics Soft Brown Weight Source Bedscale Bedscale Active Medications: Current Medications Acetaminophen (Tylenol Extra Strength) 500 mg PO Q6HR PRN PRN Reason: FEVER Stop: 07/29/18 17:21 Last Admin: 06/07/18 00:01 Dose: 500 mg Albuterol/Ipratropium (Duoneb Neb) 3 ml HHN Q6HRT [facility] Stop: 07/31/18 18:59 Last Admin: 06/07/18 19:12 Dose: 3 ml Betamethasone/Clotrimazole (Lotrisone Cream) 1 appl TP BID [facility] Stop: 06/12/18 16:59 Last Admin: 06/07/18 16:51 Dose: 1 appl Diphenhydramine HCl (Benadryl) 25 mg PO Q6HR PRN PRN Reason: Itching Stop: 08/06/18 17:21 Enoxaparin Sodium (Lovenox) 80 mg SUBQ Q12HR [facility] Stop: 08/06/18 15:59 Last Admin: 18 17:26 Dose: 80 mg Ethambutol HCl (Myambutol) 1,200 mg PO DAILY [facility] Stop: 08/05/18 15:14 Last Admin: 06/07/18 08:29 Dose: 1,200 mg Ceftriaxone Sodium 1 gm/ (Sodium Chloride) 50 mls @ 100 mls/hr IV Q24HR [facility] Stop: 07/29/18 15:43 Last Infusion: 06/07/18 16:04 Dose: Infused Azithromycin 500 mg/ Sodium (Chloride) 250 mls @ 250 mls/hr IV Q24HR [facility] Stop: 08/05/18 15:59 Last Infusion: 06/07/18 17:07 Dose: Infused Ibuprofen (Motrin) 800 mg PO TID PRN PRN Reason: MILD TO MOD. PAIN Stop: 07/29/18 17:16 Last Admin: 06/07/18 08:46 Dose: 800 mg Isoniazid (Inh) 300 mg PO DAILY [facility] Stop: 08/05/18 14:59 Last Admin: 06/07/18 08:36 Dose: 300 mg Lactobacillus Rhamnosus (Culturelle 15b) 1 each PO DAILY [facility] Stop: 08/04/18 08:59 Last Admin: 06/07/18 08:29 Dose: 1 each Miscellaneous (Probiotic Screen) 1 ea MC PRN PRN PRN Reason: PROTOCOL Stop: 08/03/18 09:44 Morphine Sulfate (Morphine) 2 mg IV Q4HR PRN PRN Reason: Severe Pain Stop: 07/29/18 17:14 Last Admin: 06/07/18 17:31 Dose: 2 mg Ondansetron HCl (Zofran) 4 mg IV Q6H PRN PRN Reason: NAUSEA Stop: 07/29/18 17:29 Pyrazinamide (Pza) 1,500 mg PO DAILY [facility] Stop: 08/05/18 15:14 Last Admin: 06/07/18 08:29 Dose: 1,500 mg Pyridoxine HCl (Vitamin B6) 50 mg PO DAILY [facility] Stop: 08/06/18 08:59 Last Admin: 06/07/18 08:28 Dose: 50 mg Rifampin (Rifadin) 600 mg PO DAILY [facility] Stop: 08/06/18 08:59 Last Admin: 06/07/18 08:29 Dose: 600 mg General: Alert Cardiovascular: Regular rate Lungs: Other (rales) Abdomen: Soft Extremities: no Edema Skin: Rash (on the chest wall area) - Procedures Procedures: Procedures Procedure Code Date DRAINAGE OF RIGHT PLEURAL CAVITY, PERC APPROACH, DIAGN [id number] 05/30/18 Assessment/Plan - Assessment Assessment: Bilateral PE pneumonia Hemorrhagic pleural effusion s/p thoracentesis Right UE DVT Dermatitis Positive AFB - Plan Plan: Air borne isolation Follow sputum AFB Continue iv antibiotics Further Pulmonary work up per DR SONG. may need bronch if no resolution will discuss with Dr Song TB treatment per MAURO vega Patient was updated on plan of care Nutritional Asmnt/Malnutr-PDOC - Dietary Evaluation Malnutrition Findings (Please click <Entered> for more info): Nutritional Asmnt/Malnutrition Start: 06/03/18 11: 57 Text: Status: Complete Freq: Protocol: Document 06/03/18 12:44 LCHENG (Rec: 06/03/18 12:48 LCHENG [email or web address]) Nutritional Asmnt/Malnutrition Patient General Information Nutritional Screening Moderate Risk Pertinent Medical Hx/Surgical Hx no sig medical hx, appendectomy, smokes about 15 cigarettes a day Subjective Information Pt seen lying in bed at time of visit, stating appetite so so. Pt consumed few breakfast today, has no food preference to give. Per EMR, PO intake 25 -50%. Per nurse, pt has DVT to right arm. Current Diet Order/ Nutrition Support regular Pertinent Medications vancomycin Pertinent Labs 05/30 Na 134, glucose 145, Ca 8. 4 Nutritional Hx/Data Height 1.83 m Height (Calculated Centimeters) 182.9 Current Weight (lbs) 87.09 kg Weight (Calculated Kilograms) 87.1 Weight (Calculated Grams) 95487.7 [place] Body Weight 178 Body Mass Index (BMI) 26.0 Weight Status Overweight GI Symptoms GI Symptoms None Last BM not indicated Difficult in: None Skin Integrity/Comment: intact Current %PO Poor (25-49%) Estimated Nutritional Goals BEE in Kcals: Using Current wt Calories/Kcals/Kg 25-30 based IBW 81kg Kcals Calculated 8625-5931 Protein: Using Current wt Protein g/k Protein Calculated 81 Fluid: ml 2024-2430ml (1ml/kcal) Nutritional Problem 1. Problem Problem inadequate food intake Etiology decreased appetite Signs/Symptoms: PO intake 25-30% Malnutrition Alert Is there a minimum of two criteria No selected? Query Text:Check all the applicable criteria. A minimum of two criteria are recommended for diagnosis of either severe or non-severe malnutrition. Malnutrition Related to Morbid Obesity Malnutrition related to morbid obesity No Intervention/Recommendation Comments 1. Continue with current diet as ordered. Encouraged oral intake. 2. Monitor PO intake, wt, labs and skin integrity 3. F/U as moderate risk in 3-5 days, 06/06-06/08, PO check Expected Outcomes/Goals Expected Outcomes/Goals 1. PO intake to meet at least 75% of nutritional needs. 2. Wt stability, skin to remain intact, labs to approach WNL.
--- NOTE | 2018-06-07 21:36 | Infectious Disease Prog Note ---
Infectious Disease Subjective - Review of Systems Service Date: 06/07/18 Events since last encounter: Developed rash. on chest and back. Subjective: hemorrhagic pleural effusion. no fever. patient was admitted to this facility on 05/19/2018 for right upper lobe pneumonia, and Sputum culture from 05/21/2018 had AFB smear negative, but culture came positive , ( ? rapid grower). Infectious Disease Objective - Results Result Diagrams: 06/07/18 04:15 06/06/18 04:20 Recent Labs: Laboratory Last Values WBC 4.7 Th/cmm (4.8-10.8) L 06/07/18 04:15 RBC 3.72 Mil/cmm (4.30-5.70) L 06/07/18 04:15 Hgb 11.3 gm/dL (12-16) L 06/07/18 04:15 Hct 33.1 % (41.0-60) L 06/07/18 04:15 MCV 89.1 fl (80-99) 06/07/18 04:15 MCH 30.5 pg (26.0-30.0) H 06/07/18 04:15 MCHC Differential 34.2 pg (28.0-36.0) 06/07/18 04:15 RDW 12.9 % (11.5-20.0) 06/07/18 04:15 Plt Count 297 Th/cmm (150-400) 06/07/18 04:15 MPV 6.9 fl 06/07/18 04:15 Add Manual Diff YES 06/06/18 04:20 Neutrophils % 70.8 % (40.0-80.0) 06/07/18 04:15 Band Neutrophils % 1 % (0-10) 06/06/18 04:20 Lymphocytes % 18.2 % (20.0-50.0) L 06/07/18 04:15 Monocytes % 5.9 % (2.0-10.0) 06/07/18 04:15 Eosinophils % 4.2 % (0.0-5.0) 06/07/18 04:15 Basophils % 0.9 % (0.0-2.0) 06/07/18 04:15 Neutrophils (Manual) 72 % (40-80) 06/06/18 04:20 Lymphocytes 20 % (20-50) 06/06/18 04:20 Monocytes 3 % (2-10) 06/06/18 04:20 Eosinophils 4 % (0-5) 06/06/18 04:20 Basophils 0 % (0-3) 06/05/18 08:00 Atypical Lymphocytes 5 % 06/06/18 04:20 Platelet Estimate ADEQUATE (NORMAL) 06/06/18 04:20 PT 10.8 SECONDS (9.5-11.5) 06/05/18 08:00 INR 1.04 (0.5-1.4) 06/05/18 08:00 PTT (Actin FS) 28.2 SECONDS (26.0-38.0) 06/05/18 08:00 D-Dimer 1240 ng/mL (100-400) H 05/30/18 10:00 Sodium 135 mEq/L (136-145) L 06/06/18 04:20 Potassium 3.6 mEq/L (3.5-5.1) 06/06/18 04:20 Chloride 104 mEq/L (98-107) 06/06/18 04:20 Carbon Dioxide 24.5 mEq/L (21.0-31.0) 06/06/18 04:20 Anion Gap 10.1 (7.0-16.0) 06/06/18 04:20 BUN 6 mg/dL (7-25) L 06/06/18 04:20 Creatinine 0.7 mg/dL (0.7-1.3) 06/06/18 04:20 Est GFR ( Amer) > 60.0 ml/min (>90) 06/06/18 04:20 Est GFR (Non-Af Amer) > 60.0 ml/min 06/06/18 04:20 BUN/Creatinine Ratio 8.6 06/06/18 04:20 Glucose 146 mg/dL (70-105) H 06/06/18 04:20 POC Glucose 100 MG/DL (70 - 105) 05/30/18 16:22 Calcium 7.9 mg/dL (8.6-10.3) L 06/06/18 04:20 Troponin I < 0.01 ng/mL (0.01-0.05) L 05/30/18 10:13 Fluid Glucose 106.0 mg/dL 06/05/18 10:45 Fluid Total Protein 3.3 g/dL 06/05/18 10:45 Fluid LDH 579 U/L 06/05/18 10:45 Vancomycin Trough 16.1 ug/mL (5-10) H 06/06/18 09:00 HIV 1&2 Antibody Screen NEGATIVE (NEG) 06/07/18 04:15 - Physical Exam Vitals and I&O: Vital Signs Temp 97.3 F 06/07/18 20:00 Pulse 93 06/07/18 20:00 Resp 26 06/07/18 20:00 BP 105/54 06/07/18 20:00 Pulse Ox 93 06/07/18 20:00 Intake & Output 06/07/18 06/07/18 06/08/18 06:59 18:59 06:59 Intake Total 200 300 500 Output Total 1100 800 Balance -900 300 -300 Weight (lbs) 78.273 kg 78.426 kg Intake: Intake, IV Amount 300 Azithromycin 500 mg In 250 Sodium Chloride 0.9% 250 ml @ 250 mls/hr IV Q24HR [facility] Rx#:[id number] cefTRIAXone 1 gm In 50 Sodium Chloride 0.9% 50 ml @ 100 mls/hr IV Q24HR [facility] Rx#:[id number] Oral 200 500 Output: Urine 1100 800 Other: # Voids 4 # Bowel Movements 1 Stool Characteristics Soft Brown Weight Source Bedscale Bedscale Active Medications: Current Medications Acetaminophen (Tylenol Extra Strength) 500 mg PO Q6HR PRN PRN Reason: FEVER Stop: 07/29/18 17:21 Last Admin: 06/07/18 00:01 Dose: 500 mg Albuterol/Ipratropium (Duoneb Neb) 3 ml HHN Q6HRT [facility] Stop: 07/31/18 18:59 Last Admin: 06/07/18 19:12 Dose: 3 ml Betamethasone/Clotrimazole (Lotrisone Cream) 1 appl TP BID [facility] Stop: 06/12/18 16:59 Last Admin: 06/07/18 16:51 Dose: 1 appl Diphenhydramine HCl (Benadryl) 25 mg PO Q6HR PRN PRN Reason: Itching Stop: 08/06/18 17:21 Enoxaparin Sodium (Lovenox) 80 mg SUBQ Q12HR [facility] Stop: 08/06/18 15:59 Last Admin: 06/07/18 17:26 Dose: 80 mg Ethambutol HCl (Myambutol) 1,200 mg PO DAILY [facility] Stop: 08/05/18 15:14 Last Admin: 06/07/18 08:29 Dose: 1,200 mg Ceftriaxone Sodium 1 gm/ (Sodium Chloride) 50 mls @ 100 mls/hr IV Q24HR [facility] Stop: 07/29/18 15:43 Last Infusion: 06/07/18 16:04 Dose: Infused Azithromycin 500 mg/ Sodium (Chloride) 250 mls @ 250 mls/hr IV Q24HR [facility] Stop: 08/05/18 15:59 Last Infusion: 06/07/18 17:07 Dose: Infused Ibuprofen (Motrin) 800 mg PO TID PRN PRN Reason: MILD TO MOD. PAIN Stop: 07/29/18 17:16 Last Admin: 06/07/18 08:46 Dose: 800 mg Isoniazid (Inh) 300 mg PO DAILY [facility] Stop: 08/05/18 14:59 Last Admin: 06/07/18 08:36 Dose: 300 mg Lactobacillus Rhamnosus (Culturelle 15b) 1 each PO DAILY [facility] Stop: 08/04/18 08:59 Last Admin: 06/07/18 08:29 Dose: 1 each Miscellaneous (Probiotic Screen) 1 ea MC PRN PRN PRN Reason: PROTOCOL Stop: 08/03/18 09:44 Morphine Sulfate (Morphine) 2 mg IV Q4HR PRN PRN Reason: Severe Pain Stop: 07/29/18 17:14 Last Admin: 06/07/18 17:31 Dose: 2 mg Ondansetron HCl (Zofran) 4 mg IV Q6H PRN PRN Reason: NAUSEA Stop: 07/29/18 17:29 Pyrazinamide (Pza) 1,500 mg PO DAILY [facility] Stop: 08/05/18 15:14 Last Admin: 06/07/18 08:29 Dose: 1,500 mg Pyridoxine HCl (Vitamin B6) 50 mg PO DAILY [facility] Stop: 08/06/18 08:59 Last Admin: 06/07/18 08:28 Dose: 50 mg Rifampin (Rifadin) 600 mg PO DAILY [facility] Stop: 08/06/18 08:59 Last Admin: 06/07/18 08:29 Dose: 600 mg General: no acute distress, cachectic HEENT: atraumatic, normocephalic, PERRLA Neck: supple, no thyromegaly Cardiovascular: S1S2, regular Lungs: clear to auscultation bilaterally, clear to percussion Abdomen: soft, no tender, no distended, no mass Extremities: no cyanosis, no clubbing, no edema Neurological: awake, alert Skin: intact, rash (new. (onset unknown, patient stated yesterday - no documentation available.).) - Procedures Procedures: Procedures Procedure Code Date DRAINAGE OF RIGHT PLEURAL CAVITY, PERC APPROACH, DIAGN [id number] 05/30/18 Infectious Disease Assmt/Plan - Assessment Assessment: 1. Pneumonmia. 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 PE. 3. DVT. 4. Hemorrhagic pleural effusion. 5. Rash. - Plan Plan: Continue rocephin. Continue TB meds and dc zithromax. wait for final id of the AFB/Mycobacteria. Check MTB PCR. Check sputum for AFB x 3 continue RIPE treatment airborne isolation. benadryl Nutritional Asmnt/Malnutr-PDOC - Dietary Evaluation Malnutrition Findings (Please click <Entered> for more info): Nutritional Asmnt/Malnutrition Start: 06/03/18 11: 57 Text: Status: Complete Freq: Protocol: Document 06/03/18 12:44 ELEONORA (Rec: 06/03/18 12:48 ELEONORA NORRIS-FN) Nutritional Asmnt/Malnutrition Patient General Information Nutritional Screening Moderate Risk Pertinent Medical Hx/Surgical Hx no sig medical hx, appendectomy, smokes about 15 cigarettes a day Subjective Information Pt seen lying in bed at time of visit, stating appetite so so. Pt consumed few breakfast today, has no food preference to give. Per EMR, PO intake 25 -50%. Per nurse, pt has DVT to right arm. Current Diet Order/ Nutrition Support regular Pertinent Medications vancomycin Pertinent Labs 05/30 Na 134, glucose 145, Ca 8. 4 Nutritional Hx/Data Height 1.83 m Height (Calculated Centimeters) 182.9 Current Weight (lbs) 87.09 kg Weight (Calculated Kilograms) 87.1 Weight (Calculated Grams) 10901.7 [place] Body Weight 178 Body Mass Index (BMI) 26.0 Weight Status Overweight GI Symptoms GI Symptoms None Last BM not indicated Difficult in: None Skin Integrity/Comment: intact Current %PO Poor (25-49%) Estimated Nutritional Goals BEE in Kcals: Using Current wt Calories/Kcals/Kg 25-30 based IBW 81kg Kcals Calculated 8263-9806 Protein: Using Current wt Protein g/k Protein Calculated 81 Fluid: ml 2024-243ml (1ml/kcal) Nutritional Problem 1. Problem Problem inadequate food intake Etiology decreased appetite Signs/Symptoms: PO intake 25-30% Malnutrition Alert Is there a minimum of two criteria No selected? Query Text:Check all the applicable criteria. A minimum of two criteria are recommended for diagnosis of either severe or non-severe malnutrition. Malnutrition Related to Morbid Obesity Malnutrition related to morbid obesity No Intervention/Recommendation Comments 1. Continue with current diet as ordered. Encouraged oral intake. 2. Monitor PO intake, wt, labs and skin integrity 3. F/U as moderate risk in 3-5 days, 06/06-06/08, PO check Expected Outcomes/Goals Expected Outcomes/Goals 1. PO intake to meet at least 75% of nutritional needs. 2. Wt stability, skin to remain intact, labs to approach WNL.
[2018-06-08 01:04] LABS: URINE SOURCE CLEAN C
[2018-06-08] MEDS: Albuterol/Ipratropium Neb 3 ML AERS HHN SCH ×4 (01:05→20:13)
[2018-06-08 01:12] LABS: URINE BILIRUBIN NEGATIVE (NEGATIVE); URINE BLOOD NEGATIVE (NEGATIVE); URINE GLUCOSE (UA) NEGATIVE (NEGATIVE); URINE KETONE NEGATIVE (NEGATIVE); URINE LEUKOCYTE ESTERASE NEGATIVE (NEGATIVE); URINE NITRATE NEGATIVE (NEGATIVE); URINE PROTEIN NEGATIVE (NEGATIVE); URINE UROBILINOGEN 0.2 E.U./dL (0.2 - 1.0)
[2018-06-08 01:13] LABS: URINE CLARITY CLEAR (CLEAR); URINE COLOR YELLOW; URINE MICROSCOPIC INDICATED? YES
[2018-06-08 01:16] LABS: URINE BACTERIA OCCASIONAL /hpf (NONE SEEN); URINE EPITHELIAL CELLS OCCASIONAL /lpf (FEW); URINE WBC 0-2 /hpf (0-5)
[2018-06-08 05:40] LABS: ALB/GLOB RATIO 0.9 (1.0-1.8); ALBUMIN 2.4 gm/dL (4.2-5.5); ALKALINE PHOSPHATASE 62 U/L (34-104); ANION GAP 10.9 (7.0-16.0); BILIRUBIN,TOTAL 0.3 mg/dL (0.3-1.0); BUN - UREA NITROGEN 9 mg/dL (7-25); CALCIUM SERUM 8.1 mg/dL (8.6-10.3); CARBON DIOXIDE 25.8 mEq/L (21.0-31.0); CHLORIDE 104 mEq/L (98-107); CREATININE - SERUM 0.8 mg/dL (0.7-1.3); GFR AFRICAN-AMERICAN > 60.0 ml/min (>90); GFR NON AFRICAN-AMERICAN > 60.0 ml/min; GLUCOSE 105 mg/dL (70-105); POTASSIUM SERUM 3.7 mEq/L (3.5-5.1); SGOT 24 U/L (13-39); SGPT/ALT 57 U/L (7-52); SODIUM SERUM 137 mEq/L (136-145); TOTAL PROTEIN,SERUM 5.2 gm/dL (6.0-8.3)
[2018-06-08 05:48] LABS: % BASOPHILS 0.4 % (0.0-2.0); % LYMPHOCYTES 21.7 % (20.0-50.0); % MONOCYTES 7.1 % (2.0-10.0); % NEUTROPHILS 64.8 % (40.0-80.0); EOSINOPHILE ABSOLUTE 0.3 Th/cmm (0.1-0.4); HEMATOCRIT 33.5 % (41.0-60); HEMOGLOBIN 11.3 gm/dL (12-16); LYMPHOCYTE ABSOLUTE 1.1 Th/cmm (1.5-3.0); MEAN CELL VOLUME 89.3 fl (80-99); MEAN CORPUSCULAR HGB CONC 33.6 pg (28.0-36.0); MEAN PLATELET VOLUME 7.3 fl; MONOCYTE ABSOLUTE 0.4 Th/cmm (0.3-1.0); NEUTROPHILE ABSOLUTE 3.2 Th/cmm (1.8-8.0); PLATELET COUNT 335 Th/cmm (150-400); RED BLOOD COUNT 3.76 Mil/cmm (4.30-5.70); RED CELL DISTRIBUTION WIDTH 13.3 % (11.5-20.0)
[2018-06-08] MEDS: Enoxaparin 80 mg/0.8 mL 0.8mL Syr SUBQ SCH ×2 (08:21→20:46)
[2018-06-08] MEDS: Morphine Sulfate 2 mg/mL 1mL Syr IV PRN ×3 (08:21→21:22)
[2018-06-08] MEDS: Lactobacillus Rhamnosus GG 15 Billion CFU CAP.SPRINK PO SCH (08:21)
[2018-06-08] MEDS: Betamethasone/Clotrimazole Cream 15 gm Tube TP SCH ×2 (08:27→16:55)
--- NOTE | 2018-06-08 08:58 | Diagnostic Imaging Report ---
Portable chest x-ray HISTORY: Fever Compared to prior exam of June 07, 2018, no change in opacification within the right upper hemithorax. Heart remains enlarged. IMPRESSION: 1. No change in the pulmonary status.
[2018-06-08] MEDS: cefTRIAXone 1 GM in Sodium Chloride 0.9% 50 ML IV SCH (15:29)
[2018-06-08] MEDS: Acetaminophen 500 MG TAB PO PRN (22:12)
[2018-06-09] MEDS: Albuterol/Ipratropium Neb 3 ML AERS HHN SCH ×4 (01:24→19:36)
[2018-06-09 04:28] LABS: % BASOPHILS 1.1 % (0.0-2.0); % EOSINOPHILS 5.8 % (0.0-5.0); % LYMPHOCYTES 21.5 % (20.0-50.0); % MONOCYTES 6.8 % (2.0-10.0); % NEUTROPHILS 64.8 % (40.0-80.0); BASOPHILE ABSOLUTE 0.1 Th/cumm (0-0.2); EOSINOPHILE ABSOLUTE 0.3 Th/cmm (0.1-0.4); HEMATOCRIT 33.2 % (41.0-60); HEMOGLOBIN 11.4 gm/dL (12-16); LYMPHOCYTE ABSOLUTE 1.2 Th/cmm (1.5-3.0); MEAN CELL VOLUME 87.8 fl (80-99); MEAN CORPUSCULAR HEMOGLOBIN 30.1 pg (26.0-30.0); MEAN CORPUSCULAR HGB CONC 34.3 pg (28.0-36.0); MONOCYTE ABSOLUTE 0.4 Th/cmm (0.3-1.0); NEUTROPHILE ABSOLUTE 3.7 Th/cmm (1.8-8.0); PLATELET COUNT 381 Th/cmm (150-400); RED BLOOD COUNT 3.78 Mil/cmm (4.30-5.70); RED CELL DISTRIBUTION WIDTH 12.9 % (11.5-20.0); WHITE BLOOD COUNT 5.7 Th/cmm (4.8-10.8)
[2018-06-09] MEDS: Lactobacillus Rhamnosus GG 15 Billion CFU CAP.SPRINK PO SCH (08:10)
[2018-06-09] MEDS: Enoxaparin 80 mg/0.8 mL 0.8mL Syr SUBQ SCH (08:10)
[2018-06-09] MEDS: Morphine Sulfate 2 mg/mL 1mL Syr IV PRN ×2 (08:26→18:57)
[2018-06-09] MEDS: Betamethasone/Clotrimazole Cream 15 gm Tube TP SCH ×2 (08:32→17:32)
[2018-06-09] MEDS: Acetaminophen 500 MG TAB PO PRN ×2 (09:50→21:05)
--- NOTE | 2018-06-09 13:16 | General Progress Note ---
Subjective - Review of Systems Service Date: 06/08/18 Subjective: Patient seen and examined with airborne isolation no new concern reported Objective - Results Result Diagrams: 06/09/18 04:00 06/08/18 04:45 Recent Labs: Laboratory Last Values WBC 5.7 Th/cmm (4.8-10.8) 06/09/18 04:00 RBC 3.78 Mil/cmm (4.30-5.70) L 06/09/18 04:00 Hgb 11.4 gm/dL (12-16) L 06/09/18 04:00 Hct 33.2 % (41.0-60) L 06/09/18 04:00 MCV 87.8 fl (80-99) 06/09/18 04:00 MCH 30.1 pg (26.0-30.0) H 06/09/18 04:00 MCHC Differential 34.3 pg (28.0-36.0) 06/09/18 04:00 RDW 12.9 % (11.5-20.0) 06/09/18 04:00 Plt Count 381 Th/cmm (150-400) 06/09/18 04:00 MPV 7.0 fl 06/09/18 04:00 Add Manual Diff YES 06/06/18 04:20 Neutrophils % 64.8 % (40.0-80.0) 06/09/18 04:00 Band Neutrophils % 1 % (0-10) 06/06/18 04:20 Lymphocytes % 21.5 % (20.0-50.0) 06/09/18 04:00 Monocytes % 6.8 % (2.0-10.0) 06/09/18 04:00 Eosinophils % 5.8 % (0.0-5.0) H 06/09/18 04:00 Basophils % 1.1 % (0.0-2.0) 06/09/18 04:00 Neutrophils (Manual) 72 % (40-80) 06/06/18 04:20 Lymphocytes 20 % (20-50) 06/06/18 04:20 Monocytes 3 % (2-10) 06/06/18 04:20 Eosinophils 4 % (0-5) 06/06/18 04:20 Basophils 0 % (0-3) 06/05/18 08:00 Atypical Lymphocytes 5 % 06/06/18 04:20 Platelet Estimate ADEQUATE (NORMAL) 06/06/18 04:20 PT 10.8 SECONDS (9.5-11.5) 06/05/18 08:00 INR 1.04 (0.5-1.4) 06/05/18 08:00 PTT (Actin FS) 28.2 SECONDS (26.0-38.0) 06/05/18 08:00 D-Dimer 1240 ng/mL (100-400) H 05/30/18 10:00 Sodium 137 mEq/L (136-145) 06/08/18 04:45 Potassium 3.7 mEq/L (3.5-5.1) 06/08/18 04:45 Chloride 104 mEq/L (98-107) 06/08/18 04:45 Carbon Dioxide 25.8 mEq/L (21.0-31.0) 06/08/18 04:45 Anion Gap 10.9 (7.0-16.0) 06/08/18 04:45 BUN 9 mg/dL (7-25) 06/08/18 04:45 Creatinine 0.8 mg/dL (0.7-1.3) 06/08/18 04:45 Est GFR ( Amer) > 60.0 ml/min (>90) 06/08/18 04:45 Est GFR (Non-Af Amer) > 60.0 ml/min 06/08/18 04:45 BUN/Creatinine Ratio 11.3 06/08/18 04:45 Glucose 105 mg/dL (70-105) 06/08/18 04:45 POC Glucose 100 MG/DL (70 - 105) 05/30/18 16:22 Whole Bld Lactic Acid 0.88 mmol/L (0.60-1.99) 06/07/18 00:10 Calcium 8.1 mg/dL (8.6-10.3) L 06/08/18 04:45 Total Bilirubin 0.3 mg/dL (0.3-1.0) 06/08/18 04:45 AST 24 U/L (13-39) 06/08/18 04:45 ALT 57 U/L (7-52) H 06/08/18 04:45 Alkaline Phosphatase 62 U/L (34-104) 06/08/18 04:45 Troponin I < 0.01 ng/mL (0.01-0.05) L 05/30/18 10:13 Total Protein 5.2 gm/dL (6.0-8.3) L 06/08/18 04:45 Albumin 2.4 gm/dL (4.2-5.5) L 06/08/18 04:45 Globulin 2.8 gm/dL 06/08/18 04:45 Albumin/Globulin Ratio 0.9 (1.0-1.8) L 06/08/18 04:45 Urine Source CLEAN C 06/07/18 00:45 Urine Color YELLOW 06/07/18 00:45 Urine Clarity CLEAR (CLEAR) 06/07/18 00:45 Urine pH 7.0 (4.6 - 8.0) 06/07/18 00:45 Ur Specific [place] 1.015 (1.005-1.030) 06/07/18 00:45 Urine Protein NEGATIVE mg/dL (NEGATIVE) 06/07/18 00:45 Urine Glucose (UA) NEGATIVE mg/dL (NEGATIVE) 06/07/18 00:45 Urine Ketones NEGATIVE mg/dL (NEGATIVE) 06/07/18 00:45 Urine Blood NEGATIVE (NEGATIVE) 06/07/18 00:45 Urine Nitrate NEGATIVE (NEGATIVE) 06/07/18 00:45 Urine Bilirubin NEGATIVE (NEGATIVE) 06/07/18 00:45 Urine Urobilinogen 0.2 E.U./dL (0.2 - 1.0) 06/07/18 00:45 Ur Leukocyte Esterase NEGATIVE (NEGATIVE) 06/07/18 00:45 Urine WBC 0-2 /hpf (0-5) 06/07/18 00:45 Ur Epithelial Cells OCCASIONAL /lpf (FEW) 06/07/18 00:45 Urine Bacteria OCCASIONAL /hpf (NONE SEEN) 06/07/18 00:45 Urine Mucus FEW /lpf (FEW) 06/07/18 00:45 Fluid Glucose 106.0 mg/dL 06/05/18 10:45 Fluid Total Protein 3.3 g/dL 06/05/18 10:45 Fluid LDH 579 U/L 06/05/18 10:45 Vancomycin Trough 16.1 ug/mL (5-10) H 06/06/18 09:00 HIV 1&2 Antibody Screen NEGATIVE (NEG) 06/07/18 04:15 - Physical Exam Vitals and I&O: Vital Signs Temp 98.4 F 06/09/18 08:00 Pulse 78 06/09/18 13:06 Resp 18 06/09/18 13:06 BP 124/57 06/09/18 10:00 Pulse Ox 99 06/09/18 13:06 Intake & Output 06/08/18 06/09/18 06/09/18 18:59 06:59 18:59 Intake Total 1150 800 Output Total 800 600 Balance 350 200 Weight (lbs) 84.822 kg 85.275 kg Intake: Intake, IV Amount 50 cefTRIAXone 1 gm In 50 Sodium Chloride 0.9% 50 ml @ 100 mls/hr IV Q24HR [facility] Rx#:[id number] Oral 1100 800 Output: Urine 800 600 Other: # Voids 3 Weight Source Bedscale Bedscale Active Medications: Current Medications Acetaminophen (Tylenol Extra Strength) 500 mg PO Q6HR PRN PRN Reason: FEVER Stop: 07/29/18 17:21 Last Admin: 06/09/18 09:50 Dose: 500 mg Albuterol/Ipratropium (Duoneb Neb) 3 ml HHN Q6HRT [facility] Stop: 07/31/18 18:59 Last Admin: 06/09/18 12:51 Dose: 3 ml Betamethasone/Clotrimazole (Lotrisone Cream) 1 appl TP BID [facility] Stop: 06/12/18 16:59 Last Admin: 06/09/18 08:32 Dose: 1 appl Diphenhydramine HCl (Benadryl) 25 mg PO Q6HR PRN PRN Reason: Itching Stop: 08/06/18 17:21 Last Admin: 06/07/18 22:25 Dose: 25 mg Ceftriaxone Sodium 1 gm/ (Sodium Chloride) 50 mls @ 100 mls/hr IV Q24HR [facility] Stop: 07/29/18 15:43 Last Infusion: 06/08/18 15:59 Dose: Infused Ibuprofen (Motrin) 800 mg PO TID PRN PRN Reason: MILD TO MOD. PAIN Stop: 07/29/18 17:16 Last Admin: 06/08/18 12:24 Dose: 800 mg Lactobacillus Rhamnosus (Culturelle 15b) 1 each PO DAILY [facility] Stop: 08/04/18 08:59 Last Admin: 06/09/18 08:10 Dose: 1 each Miscellaneous (Probiotic Screen) 1 ea MC PRN PRN PRN Reason: PROTOCOL Stop: 08/03/18 09:44 Morphine Sulfate (Morphine) 2 mg IV Q4HR PRN PRN Reason: Severe Pain Stop: 07/29/18 17:14 Last Admin: 06/09/18 08:26 Dose: 2 mg Ondansetron HCl (Zofran) 4 mg IV Q6H PRN PRN Reason: NAUSEA Stop: 07/29/18 17:29 Pyridoxine HCl (Vitamin B6) 50 mg PO DAILY [facility] Stop: 08/06/18 08:59 Last Admin: 06/09/18 08:10 Dose: 50 mg Rivaroxaban (Xarelto) 20 mg PO DAILY [facility] Stop: 08/09/18 08:59 Cardiovascular: Regular rate Lungs: Other (rales) Abdomen: Soft Extremities: no Edema Skin: Rash (on the chest wall area) - Procedures Procedures: Procedures Procedure Code Date DRAINAGE OF RIGHT PLEURAL CAVITY, PERC APPROACH, DIAGN [id number] 05/30/18 Assessment/Plan - Assessment Assessment: Bilateral PE pneumonia Hemorrhagic pleural effusion s/p thoracentesis Right UE DVT Dermatitis Positive AFB - Plan Plan: Air borne isolation Follow sputum AFB Continue iv antibiotics TB treatment per ID Benadryl prn Patient was updated on plan of care Nutritional Asmnt/Malnutr-PDOC - Dietary Evaluation Malnutrition Findings (Please click <Entered> for more info): Nutritional Asmnt/Malnutrition Start: 06/03/18 11: 57 Text: Status: Complete Freq: Protocol: Document 06/03/18 12:44 ELEONORA (Rec: 06/03/18 12:48 ELEONORA [email or web address]) Nutritional Asmnt/Malnutrition Patient General Information Nutritional Screening Moderate Risk Pertinent Medical Hx/Surgical Hx no sig medical hx, appendectomy, smokes about 15 cigarettes a day Subjective Information Pt seen lying in bed at time of visit, stating appetite so so. Pt consumed few breakfast today, has no food preference to give. Per EMR, PO intake 25 -50%. Per nurse, pt has DVT to right arm. Current Diet Order/ Nutrition Support regular Pertinent Medications vancomycin Pertinent Labs 05/30 Na 134, glucose 145, Ca 8. 4 Nutritional Hx/Data Height 1.83 m Height (Calculated Centimeters) 182.9 Current Weight (lbs) 87.09 kg Weight (Calculated Kilograms) 87.1 Weight (Calculated Grams) 84074.7 [place] Body Weight 178 Body Mass Index (BMI) 26.0 Weight Status Overweight GI Symptoms GI Symptoms None Last BM not indicated Difficult in: None Skin Integrity/Comment: intact Current %PO Poor (25-49%) Estimated Nutritional Goals BEE in Kcals: Using Current wt Calories/Kcals/Kg 25-30 based IBW 81kg Kcals Calculated 8501-2596 Protein: Using Current wt Protein g/k Protein Calculated 81 Fluid: ml 2024-243ml (1ml/kcal) Nutritional Problem 1. Problem Problem inadequate food intake Etiology decreased appetite Signs/Symptoms: PO intake 25-30% Malnutrition Alert Is there a minimum of two criteria No selected? Query Text:Check all the applicable criteria. A minimum of two criteria are recommended for diagnosis of either severe or non-severe malnutrition. Malnutrition Related to Morbid Obesity Malnutrition related to morbid obesity No Intervention/Recommendation Comments 1. Continue with current diet as ordered. Encouraged oral intake. 2. Monitor PO intake, wt, labs and skin integrity 3. F/U as moderate risk in 3-5 days, 06/06-06/08, PO check Expected Outcomes/Goals Expected Outcomes/Goals 1. PO intake to meet at least 75% of nutritional needs. 2. Wt stability, skin to remain intact, labs to approach WNL.
--- NOTE | 2018-06-09 13:17 | General Progress Note ---
Subjective - Review of Systems Service Date: 06/09/18 Subjective: Patient seen and examined doing fine denied chest pain or trouble breathing Objective - Results Result Diagrams: 06/09/18 04:00 06/08/18 04:45 Recent Labs: Laboratory Last Values WBC 5.7 Th/cmm (4.8-10.8) 06/09/18 04:00 RBC 3.78 Mil/cmm (4.30-5.70) L 06/09/18 04:00 Hgb 11.4 gm/dL (12-16) L 06/09/18 04:00 Hct 33.2 % (41.0-60) L 06/09/18 04:00 MCV 87.8 fl (80-99) 06/09/18 04:00 MCH 30.1 pg (26.0-30.0) H 06/09/18 04:00 MCHC Differential 34.3 pg (28.0-36.0) 06/09/18 04:00 RDW 12.9 % (11.5-20.0) 06/09/18 04:00 Plt Count 381 Th/cmm (150-400) 06/09/18 04:00 MPV 7.0 fl 06/09/18 04:00 Add Manual Diff YES 06/06/18 04:20 Neutrophils % 64.8 % (40.0-80.0) 06/09/18 04:00 Band Neutrophils % 1 % (0-10) 06/06/18 04:20 Lymphocytes % 21.5 % (20.0-50.0) 06/09/18 04:00 Monocytes % 6.8 % (2.0-10.0) 06/09/18 04:00 Eosinophils % 5.8 % (0.0-5.0) H 06/09/18 04:00 Basophils % 1.1 % (0.0-2.0) 06/09/18 04:00 Neutrophils (Manual) 72 % (40-80) 06/06/18 04:20 Lymphocytes 20 % (20-50) 06/06/18 04:20 Monocytes 3 % (2-10) 06/06/18 04:20 Eosinophils 4 % (0-5) 06/06/18 04:20 Basophils 0 % (0-3) 06/05/18 08:00 Atypical Lymphocytes 5 % 06/06/18 04:20 Platelet Estimate ADEQUATE (NORMAL) 06/06/18 04:20 PT 10.8 SECONDS (9.5-11.5) 06/05/18 08:00 INR 1.04 (0.5-1.4) 06/05/18 08:00 PTT (Actin FS) 28.2 SECONDS (26.0-38.0) 06/05/18 08:00 D-Dimer 1240 ng/mL (100-400) H 05/30/18 10:00 Sodium 137 mEq/L (136-145) 06/08/18 04:45 Potassium 3.7 mEq/L (3.5-5.1) 06/08/18 04:45 Chloride 104 mEq/L (98-107) 06/08/18 04:45 Carbon Dioxide 25.8 mEq/L (21.0-31.0) 06/08/18 04:45 Anion Gap 10.9 (7.0-16.0) 06/08/18 04:45 BUN 9 mg/dL (7-25) 06/08/18 04:45 Creatinine 0.8 mg/dL (0.7-1.3) 06/08/18 04:45 Est GFR ( Amer) > 60.0 ml/min (>90) 06/08/18 04:45 Est GFR (Non-Af Amer) > 60.0 ml/min 06/08/18 04:45 BUN/Creatinine Ratio 11.3 06/08/18 04:45 Glucose 105 mg/dL (70-105) 06/08/18 04:45 POC Glucose 100 MG/DL (70 - 105) 05/30/18 16:22 Whole Bld Lactic Acid 0.88 mmol/L (0.60-1.99) 06/07/18 00:10 Calcium 8.1 mg/dL (8.6-10.3) L 06/08/18 04:45 Total Bilirubin 0.3 mg/dL (0.3-1.0) 06/08/18 04:45 AST 24 U/L (13-39) 06/08/18 04:45 ALT 57 U/L (7-52) H 06/08/18 04:45 Alkaline Phosphatase 62 U/L (34-104) 06/08/18 04:45 Troponin I < 0.01 ng/mL (0.01-0.05) L 05/30/18 10:13 Total Protein 5.2 gm/dL (6.0-8.3) L 06/08/18 04:45 Albumin 2.4 gm/dL (4.2-5.5) L 06/08/18 04:45 Globulin 2.8 gm/dL 06/08/18 04:45 Albumin/Globulin Ratio 0.9 (1.0-1.8) L 06/08/18 04:45 Urine Source CLEAN C 06/07/18 00:45 Urine Color YELLOW 06/07/18 00:45 Urine Clarity CLEAR (CLEAR) 06/07/18 00:45 Urine pH 7.0 (4.6 - 8.0) 06/07/18 00:45 Ur Specific [place] 1.015 (1.005-1.030) 06/07/18 00:45 Urine Protein NEGATIVE mg/dL (NEGATIVE) 06/07/18 00:45 Urine Glucose (UA) NEGATIVE mg/dL (NEGATIVE) 06/07/18 00:45 Urine Ketones NEGATIVE mg/dL (NEGATIVE) 06/07/18 00:45 Urine Blood NEGATIVE (NEGATIVE) 06/07/18 00:45 Urine Nitrate NEGATIVE (NEGATIVE) 06/07/18 00:45 Urine Bilirubin NEGATIVE (NEGATIVE) 06/07/18 00:45 Urine Urobilinogen 0.2 E.U./dL (0.2 - 1.0) 06/07/18 00:45 Ur Leukocyte Esterase NEGATIVE (NEGATIVE) 06/07/18 00:45 Urine WBC 0-2 /hpf (0-5) 06/07/18 00:45 Ur Epithelial Cells OCCASIONAL /lpf (FEW) 06/07/18 00:45 Urine Bacteria OCCASIONAL /hpf (NONE SEEN) 06/07/18 00:45 Urine Mucus FEW /lpf (FEW) 06/07/18 00:45 Fluid Glucose 106.0 mg/dL 06/05/18 10:45 Fluid Total Protein 3.3 g/dL 06/05/18 10:45 Fluid LDH 579 U/L 06/05/18 10:45 Vancomycin Trough 16.1 ug/mL (5-10) H 06/06/18 09:00 HIV 1&2 Antibody Screen NEGATIVE (NEG) 06/07/18 04:15 - Physical Exam Vitals and I&O: Vital Signs Temp 98.4 F 06/09/18 08:00 Pulse 78 06/09/18 13:06 Resp 18 06/09/18 13:06 BP 124/57 06/09/18 10:00 Pulse Ox 99 06/09/18 13:06 Intake & Output 06/08/18 06/09/18 06/09/18 18:59 06:59 18:59 Intake Total 1150 800 Output Total 800 600 Balance 350 200 Weight (lbs) 84.822 kg 85.275 kg Intake: Intake, IV Amount 50 cefTRIAXone 1 gm In 50 Sodium Chloride 0.9% 50 ml @ 100 mls/hr IV Q24HR [facility] Rx#:[id number] Oral 1100 800 Output: Urine 800 600 Other: # Voids 3 Weight Source Bedscale Bedscale Active Medications: Current Medications Acetaminophen (Tylenol Extra Strength) 500 mg PO Q6HR PRN PRN Reason: FEVER Stop: 07/29/18 17:21 Last Admin: 06/09/18 09:50 Dose: 500 mg Albuterol/Ipratropium (Duoneb Neb) 3 ml HHN Q6HRT [facility] Stop: 07/31/18 18:59 Last Admin: 06/09/18 12:51 Dose: 3 ml Betamethasone/Clotrimazole (Lotrisone Cream) 1 appl TP BID [facility] Stop: 06/12/18 16:59 Last Admin: 06/09/18 08:32 Dose: 1 appl Diphenhydramine HCl (Benadryl) 25 mg PO Q6HR PRN PRN Reason: Itching Stop: 08/06/18 17:21 Last Admin: 06/07/18 22:25 Dose: 25 mg Ceftriaxone Sodium 1 gm/ (Sodium Chloride) 50 mls @ 100 mls/hr IV Q24HR [facility] Stop: 07/29/18 15:43 Last Infusion: 06/08/18 15:59 Dose: Infused Ibuprofen (Motrin) 800 mg PO TID PRN PRN Reason: MILD TO MOD. PAIN Stop: 07/29/18 17:16 Last Admin: 06/08/18 12:24 Dose: 800 mg Lactobacillus Rhamnosus (Culturelle 15b) 1 each PO DAILY [facility] Stop: 08/04/18 08:59 Last Admin: 06/09/18 08:10 Dose: 1 each Miscellaneous (Probiotic Screen) 1 ea MC PRN PRN PRN Reason: PROTOCOL Stop: 08/03/18 09:44 Morphine Sulfate (Morphine) 2 mg IV Q4HR PRN PRN Reason: Severe Pain Stop: 07/29/18 17:14 Last Admin: 06/09/18 08:26 Dose: 2 mg Ondansetron HCl (Zofran) 4 mg IV Q6H PRN PRN Reason: NAUSEA Stop: 07/29/18 17:29 Pyridoxine HCl (Vitamin B6) 50 mg PO DAILY [facility] Stop: 08/06/18 08:59 Last Admin: 06/09/18 08:10 Dose: 50 mg Rivaroxaban (Xarelto) 20 mg PO DAILY [facility] Stop: 08/09/18 08:59 General: Alert Cardiovascular: Regular rate Lungs: Other (rales better) Skin: Rash (on the chest wall area) - Procedures Procedures: Procedures Procedure Code Date DRAINAGE OF RIGHT PLEURAL CAVITY, PERC APPROACH, DIAGN [id number] 05/30/18 Assessment/Plan - Assessment Assessment: Bilateral PE pneumonia Hemorrhagic pleural effusion s/p thoracentesis Right UE DVT Dermatitis Positive AFB - Plan Plan: Air borne isolation DC Lovonex Start Xarelto Follow sputum AFB Continue iv antibiotics TB treatment per ID Benadryl prn Patient was updated on plan of care Nutritional Asmnt/Malnutr-PDOC - Dietary Evaluation Malnutrition Findings (Please click <Entered> for more info): Nutritional Asmnt/Malnutrition Start: 06/03/18 11: 57 Text: Status: Complete Freq: Protocol: Document 06/03/18 12:44 ELEONORA (Rec: 06/03/18 12:48 ELEONORA [email or web address]) Nutritional Asmnt/Malnutrition Patient General Information Nutritional Screening Moderate Risk Pertinent Medical Hx/Surgical Hx no sig medical hx, appendectomy, smokes about 15 cigarettes a day Subjective Information Pt seen lying in bed at time of visit, stating appetite so so. Pt consumed few breakfast today, has no food preference to give. Per EMR, PO intake 25 -50%. Per nurse, pt has DVT to right arm. Current Diet Order/ Nutrition Support regular Pertinent Medications vancomycin Pertinent Labs 05/30 Na 134, glucose 145, Ca 8. 4 Nutritional Hx/Data Height 1.83 m Height (Calculated Centimeters) 182.9 Current Weight (lbs) 87.09 kg Weight (Calculated Kilograms) 87.1 Weight (Calculated Grams) 06087.7 [place] Body Weight 178 Body Mass Index (BMI) 26.0 Weight Status Overweight GI Symptoms GI Symptoms None Last BM not indicated Difficult in: None Skin Integrity/Comment: intact Current %PO Poor (25-49%) Estimated Nutritional Goals BEE in Kcals: Using Current wt Calories/Kcals/Kg 25-30 based IBW 81kg Kcals Calculated 1274-2938 Protein: Using Current wt Protein g/k Protein Calculated 81 Fluid: ml 2024-243ml (1ml/kcal) Nutritional Problem 1. Problem Problem inadequate food intake Etiology decreased appetite Signs/Symptoms: PO intake 25-30% Malnutrition Alert Is there a minimum of two criteria No selected? Query Text:Check all the applicable criteria. A minimum of two criteria are recommended for diagnosis of either severe or non-severe malnutrition. Malnutrition Related to Morbid Obesity Malnutrition related to morbid obesity No Intervention/Recommendation Comments 1. Continue with current diet as ordered. Encouraged oral intake. 2. Monitor PO intake, wt, labs and skin integrity 3. F/U as moderate risk in 3-5 days, 06/06-06/08, PO check Expected Outcomes/Goals Expected Outcomes/Goals 1. PO intake to meet at least 75% of nutritional needs. 2. Wt stability, skin to remain intact, labs to approach WNL.
[2018-06-09] MEDS: cefTRIAXone 1 GM in Sodium Chloride 0.9% 50 ML IV SCH (15:49)
--- NOTE | 2018-06-09 17:55 | Infectious Disease Prog Note ---
Infectious Disease Subjective - Review of Systems Service Date: 06/09/18 Subjective: had developed fevers. Infectious Disease Objective - Results Result Diagrams: 06/09/18 04:00 06/08/18 04:45 Recent Labs: Laboratory Last Values WBC 5.7 Th/cmm (4.8-10.8) 06/09/18 04:00 RBC 3.78 Mil/cmm (4.30-5.70) L 06/09/18 04:00 Hgb 11.4 gm/dL (12-16) L 06/09/18 04:00 Hct 33.2 % (41.0-60) L 06/09/18 04:00 MCV 87.8 fl (80-99) 06/09/18 04:00 MCH 30.1 pg (26.0-30.0) H 06/09/18 04:00 MCHC Differential 34.3 pg (28.0-36.0) 06/09/18 04:00 RDW 12.9 % (11.5-20.0) 06/09/18 04:00 Plt Count 381 Th/cmm (150-400) 06/09/18 04:00 MPV 7.0 fl 06/09/18 04:00 Add Manual Diff YES 06/06/18 04:20 Neutrophils % 64.8 % (40.0-80.0) 06/09/18 04:00 Band Neutrophils % 1 % (0-10) 06/06/18 04:20 Lymphocytes % 21.5 % (20.0-50.0) 06/09/18 04:00 Monocytes % 6.8 % (2.0-10.0) 06/09/18 04:00 Eosinophils % 5.8 % (0.0-5.0) H 06/09/18 04:00 Basophils % 1.1 % (0.0-2.0) 06/09/18 04:00 Neutrophils (Manual) 72 % (40-80) 06/06/18 04:20 Lymphocytes 20 % (20-50) 06/06/18 04:20 Monocytes 3 % (2-10) 06/06/18 04:20 Eosinophils 4 % (0-5) 06/06/18 04:20 Basophils 0 % (0-3) 06/05/18 08:00 Atypical Lymphocytes 5 % 06/06/18 04:20 Platelet Estimate ADEQUATE (NORMAL) 06/06/18 04:20 PT 10.8 SECONDS (9.5-11.5) 06/05/18 08:00 INR 1.04 (0.5-1.4) 06/05/18 08:00 PTT (Actin FS) 28.2 SECONDS (26.0-38.0) 06/05/18 08:00 D-Dimer 1240 ng/mL (100-400) H 05/30/18 10:00 Sodium 137 mEq/L (136-145) 06/08/18 04:45 Potassium 3.7 mEq/L (3.5-5.1) 06/08/18 04:45 Chloride 104 mEq/L (98-107) 06/08/18 04:45 Carbon Dioxide 25.8 mEq/L (21.0-31.0) 06/08/18 04:45 Anion Gap 10.9 (7.0-16.0) 06/08/18 04:45 BUN 9 mg/dL (7-25) 06/08/18 04:45 Creatinine 0.8 mg/dL (0.7-1.3) 06/08/18 04:45 Est GFR ( Amer) > 60.0 ml/min (>90) 06/08/18 04:45 Est GFR (Non-Af Amer) > 60.0 ml/min 06/08/18 04:45 BUN/Creatinine Ratio 11.3 06/08/18 04:45 Glucose 105 mg/dL (70-105) 06/08/18 04:45 POC Glucose 100 MG/DL (70 - 105) 05/30/18 16:22 Whole Bld Lactic Acid 0.88 mmol/L (0.60-1.99) 06/07/18 00:10 Calcium 8.1 mg/dL (8.6-10.3) L 06/08/18 04:45 Total Bilirubin 0.3 mg/dL (0.3-1.0) 06/08/18 04:45 AST 24 U/L (13-39) 06/08/18 04:45 ALT 57 U/L (7-52) H 06/08/18 04:45 Alkaline Phosphatase 62 U/L (34-104) 06/08/18 04:45 Troponin I < 0.01 ng/mL (0.01-0.05) L 05/30/18 10:13 Total Protein 5.2 gm/dL (6.0-8.3) L 06/08/18 04:45 Albumin 2.4 gm/dL (4.2-5.5) L 06/08/18 04:45 Globulin 2.8 gm/dL 06/08/18 04:45 Albumin/Globulin Ratio 0.9 (1.0-1.8) L 06/08/18 04:45 Urine Source CLEAN C 06/07/18 00:45 Urine Color YELLOW 06/07/18 00:45 Urine Clarity CLEAR (CLEAR) 06/07/18 00:45 Urine pH 7.0 (4.6 - 8.0) 06/07/18 00:45 Ur Specific [place] 1.015 (1.005-1.030) 06/07/18 00:45 Urine Protein NEGATIVE mg/dL (NEGATIVE) 06/07/18 00:45 Urine Glucose (UA) NEGATIVE mg/dL (NEGATIVE) 06/07/18 00:45 Urine Ketones NEGATIVE mg/dL (NEGATIVE) 06/07/18 00:45 Urine Blood NEGATIVE (NEGATIVE) 06/07/18 00:45 Urine Nitrate NEGATIVE (NEGATIVE) 06/07/18 00:45 Urine Bilirubin NEGATIVE (NEGATIVE) 06/07/18 00:45 Urine Urobilinogen 0.2 E.U./dL (0.2 - 1.0) 06/07/18 00:45 Ur Leukocyte Esterase NEGATIVE (NEGATIVE) 06/07/18 00:45 Urine WBC 0-2 /hpf (0-5) 06/07/18 00:45 Ur Epithelial Cells OCCASIONAL /lpf (FEW) 06/07/18 00:45 Urine Bacteria OCCASIONAL /hpf (NONE SEEN) 06/07/18 00:45 Urine Mucus FEW /lpf (FEW) 06/07/18 00:45 Fluid Glucose 106.0 mg/dL 06/05/18 10:45 Fluid Total Protein 3.3 g/dL 06/05/18 10:45 Fluid LDH 579 U/L 06/05/18 10:45 Vancomycin Trough 16.1 ug/mL (5-10) H 06/06/18 09:00 HIV 1&2 Antibody Screen NEGATIVE (NEG) 06/07/18 04:15 - Physical Exam Vitals and I&O: Vital Signs Temp 97.9 F 06/09/18 16:00 Pulse 74 06/09/18 16:00 Resp 24 06/09/18 16:00 BP 134/73 06/09/18 16:00 Pulse Ox 95 06/09/18 16:00 Intake & Output 06/08/18 06/09/18 06/09/18 18:59 06:59 18:59 Intake Total 1150 800 50 Output Total 800 600 Balance 350 200 50 Weight (lbs) 84.822 kg 85.275 kg Intake: Intake, IV Amount 50 50 cefTRIAXone 1 gm In 50 50 Sodium Chloride 0.9% 50 ml @ 100 mls/hr IV Q24HR ANANDA Rx#:[id number] Oral 1100 800 Output: Urine 800 600 Other: # Voids 3 Weight Source Bedscale Bedscale Active Medications: Current Medications Acetaminophen (Tylenol Extra Strength) 500 mg PO Q6HR PRN PRN Reason: FEVER Stop: 07/29/18 17:21 Last Admin: 06/09/18 09:50 Dose: 500 mg Albuterol/Ipratropium (Duoneb Neb) 3 ml HHN Q6HRT [facility] Stop: 07/31/18 18:59 Last Admin: 06/09/18 12:51 Dose: 3 ml Betamethasone/Clotrimazole (Lotrisone Cream) 1 appl TP BID [facility] Stop: 06/12/18 16:59 Last Admin: 06/09/18 17:32 Dose: 1 appl Diphenhydramine HCl (Benadryl) 25 mg PO Q6HR PRN PRN Reason: Itching Stop: 08/06/18 17:21 Last Admin: 06/07/18 22:25 Dose: 25 mg Ceftriaxone Sodium 1 gm/ (Sodium Chloride) 50 mls @ 100 mls/hr IV Q24HR [facility] Stop: 07/29/18 15:43 Last Infusion: 06/09/18 16:20 Dose: Infused Ibuprofen (Motrin) 800 mg PO TID PRN PRN Reason: MILD TO MOD. PAIN Stop: 07/29/18 17:16 Last Admin: 06/08/18 12:24 Dose: 800 mg Lactobacillus Rhamnosus (Culturelle 15b) 1 each PO DAILY [facility] Stop: 08/04/18 08:59 Last Admin: 06/09/18 08:10 Dose: 1 each Miscellaneous (Probiotic Screen) 1 ea MC PRN PRN PRN Reason: PROTOCOL Stop: 08/03/18 09:44 Morphine Sulfate (Morphine) 2 mg IV Q4HR PRN PRN Reason: Severe Pain Stop: 07/29/18 17:14 Last Admin: 06/09/18 08:26 Dose: 2 mg Ondansetron HCl (Zofran) 4 mg IV Q6H PRN PRN Reason: NAUSEA Stop: 07/29/18 17:29 Pyridoxine HCl (Vitamin B6) 50 mg PO DAILY [facility] Stop: 08/06/18 08:59 Last Admin: 06/09/18 08:10 Dose: 50 mg Rivaroxaban (Xarelto) 20 mg PO DAILY [facility] Stop: 08/09/18 08:59 General: no acute distress, well developed, well nourished HEENT: atraumatic, normocephalic, PERRLA, EOMI Neck: supple, no thyromegaly Cardiovascular: S1S2, regular Lungs: clear to auscultation bilaterally, clear to percussion Abdomen: soft, no tender, no distended Extremities: no cyanosis, no clubbing, no edema Neurological: awake, alert, oriented Skin: intact - Procedures Procedures: Procedures Procedure Code Date DRAINAGE OF RIGHT PLEURAL CAVITY, PERC APPROACH, DIAGN [id number] 05/30/18 Infectious Disease Assmt/Plan - Assessment Assessment: 1. Pneumonmia. 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 PE. 3. DVT. 4. Hemorrhagic pleural effusion. 5. Rash. Resolved. - Plan Plan: Continue rocephin. Hold TB meds. wait for final ID of the AFB/Mycobacteria. Check MTB PCR. Check sputum for AFB x 3 airborne isolation. benadryl Nutritional Asmnt/Malnutr-PDOC - Dietary Evaluation Malnutrition Findings (Please click <Entered> for more info): Nutritional Asmnt/Malnutrition Start: 06/03/18 11: 57 Text: Status: Complete Freq: Protocol: Document 06/03/18 12:44 ELEONORA (Rec: 06/03/18 12:48 LCLANA [email or web address]) Nutritional Asmnt/Malnutrition Patient General Information Nutritional Screening Moderate Risk Pertinent Medical Hx/Surgical Hx no sig medical hx, appendectomy, smokes about 15 cigarettes a day Subjective Information Pt seen lying in bed at time of visit, stating appetite so so. Pt consumed few breakfast today, has no food preference to give. Per EMR, PO intake 25 -50%. Per nurse, pt has DVT to right arm. Current Diet Order/ Nutrition Support regular Pertinent Medications vancomycin Pertinent Labs 05/30 Na 134, glucose 145, Ca 8. 4 Nutritional Hx/Data Height 1.83 m Height (Calculated Centimeters) 182.9 Current Weight (lbs) 87.09 kg Weight (Calculated Kilograms) 87.1 Weight (Calculated Grams) 64587.7 [place] Body Weight 178 Body Mass Index (BMI) 26.0 Weight Status Overweight GI Symptoms GI Symptoms None Last BM not indicated Difficult in: None Skin Integrity/Comment: intact Current %PO Poor (25-49%) Estimated Nutritional Goals BEE in Kcals: Using Current wt Calories/Kcals/Kg 25-30 based IBW 81kg Kcals Calculated 5166-5341 Protein: Using Current wt Protein g/k Protein Calculated 81 Fluid: ml 2024-2430ml (1ml/kcal) Nutritional Problem 1. Problem Problem inadequate food intake Etiology decreased appetite Signs/Symptoms: PO intake 25-30% Malnutrition Alert Is there a minimum of two criteria No selected? Query Text:Check all the applicable criteria. A minimum of two criteria are recommended for diagnosis of either severe or non-severe malnutrition. Malnutrition Related to Morbid Obesity Malnutrition related to morbid obesity No Intervention/Recommendation Comments 1. Continue with current diet as ordered. Encouraged oral intake. 2. Monitor PO intake, wt, labs and skin integrity 3. F/U as moderate risk in 3-5 days, 06/06-06/08, PO check Expected Outcomes/Goals Expected Outcomes/Goals 1. PO intake to meet at least 75% of nutritional needs. 2. Wt stability, skin to remain intact, labs to approach WNL.
[2018-06-10] MEDS: Albuterol/Ipratropium Neb 3 ML AERS HHN SCH ×4 (02:14→19:37)
[2018-06-10] MEDS: Morphine Sulfate 2 mg/mL 1mL Syr IV PRN ×2 (04:13→23:21)
[2018-06-10 04:25] LABS: % BASOPHILS 1.2 % (0.0-2.0); % EOSINOPHILS 5.9 % (0.0-5.0); % LYMPHOCYTES 24.4 % (20.0-50.0); % MONOCYTES 7.6 % (2.0-10.0); % NEUTROPHILS 60.9 % (40.0-80.0); BASOPHILE ABSOLUTE 0.1 Th/cumm (0-0.2); EOSINOPHILE ABSOLUTE 0.3 Th/cmm (0.1-0.4); HEMATOCRIT 34.2 % (41.0-60); HEMOGLOBIN 11.6 gm/dL (12-16); LYMPHOCYTE ABSOLUTE 1.2 Th/cmm (1.5-3.0); MEAN CELL VOLUME 88.4 fl (80-99); MEAN CORPUSCULAR HEMOGLOBIN 29.9 pg (26.0-30.0); MEAN CORPUSCULAR HGB CONC 33.8 pg (28.0-36.0); MEAN PLATELET VOLUME 6.9 fl; MONOCYTE ABSOLUTE 0.4 Th/cmm (0.3-1.0); NEUTROPHILE ABSOLUTE 2.9 Th/cmm (1.8-8.0); PLATELET COUNT 405 Th/cmm (150-400); RED BLOOD COUNT 3.87 Mil/cmm (4.30-5.70); RED CELL DISTRIBUTION WIDTH 12.8 % (11.5-20.0); WHITE BLOOD COUNT 4.9 Th/cmm (4.8-10.8)
[2018-06-10] MEDS: Lactobacillus Rhamnosus GG 15 Billion CFU CAP.SPRINK PO SCH (09:01)
--- NOTE | 2018-06-10 10:33 | General Progress Note ---
Subjective - Review of Systems Service Date: 06/10/18 Subjective: no chest pain Objective - Results Result Diagrams: 06/10/18 04:05 06/08/18 04:45 Recent Labs: Laboratory Last Values WBC 4.9 Th/cmm (4.8-10.8) 06/10/18 04:05 RBC 3.87 Mil/cmm (4.30-5.70) L 06/10/18 04:05 Hgb 11.6 gm/dL (12-16) L 06/10/18 04:05 Hct 34.2 % (41.0-60) L 06/10/18 04:05 MCV 88.4 fl (80-99) 06/10/18 04:05 MCH 29.9 pg (26.0-30.0) 06/10/18 04:05 MCHC Differential 33.8 pg (28.0-36.0) 06/10/18 04:05 RDW 12.8 % (11.5-20.0) 06/10/18 04:05 Plt Count 405 Th/cmm (150-400) H 06/10/18 04:05 MPV 6.9 fl 06/10/18 04:05 Add Manual Diff YES 06/06/18 04:20 Neutrophils % 60.9 % (40.0-80.0) 06/10/18 04:05 Band Neutrophils % 1 % (0-10) 06/06/18 04:20 Lymphocytes % 24.4 % (20.0-50.0) 06/10/18 04:05 Monocytes % 7.6 % (2.0-10.0) 06/10/18 04:05 Eosinophils % 5.9 % (0.0-5.0) H 06/10/18 04:05 Basophils % 1.2 % (0.0-2.0) 06/10/18 04:05 Neutrophils (Manual) 72 % (40-80) 06/06/18 04:20 Lymphocytes 20 % (20-50) 06/06/18 04:20 Monocytes 3 % (2-10) 06/06/18 04:20 Eosinophils 4 % (0-5) 06/06/18 04:20 Basophils 0 % (0-3) 06/05/18 08:00 Atypical Lymphocytes 5 % 06/06/18 04:20 Platelet Estimate ADEQUATE (NORMAL) 06/06/18 04:20 PT 10.8 SECONDS (9.5-11.5) 06/05/18 08:00 INR 1.04 (0.5-1.4) 06/05/18 08:00 PTT (Actin FS) 28.2 SECONDS (26.0-38.0) 06/05/18 08:00 D-Dimer 1240 ng/mL (100-400) H 05/30/18 10:00 Sodium 137 mEq/L (136-145) 06/08/18 04:45 Potassium 3.7 mEq/L (3.5-5.1) 06/08/18 04:45 Chloride 104 mEq/L (98-107) 06/08/18 04:45 Carbon Dioxide 25.8 mEq/L (21.0-31.0) 06/08/18 04:45 Anion Gap 10.9 (7.0-16.0) 06/08/18 04:45 BUN 9 mg/dL (7-25) 06/08/18 04:45 Creatinine 0.8 mg/dL (0.7-1.3) 06/08/18 04:45 Est GFR ( Amer) > 60.0 ml/min (>90) 06/08/18 04:45 Est GFR (Non-Af Amer) > 60.0 ml/min 06/08/18 04:45 BUN/Creatinine Ratio 11.3 06/08/18 04:45 Glucose 105 mg/dL (70-105) 06/08/18 04:45 POC Glucose 100 MG/DL (70 - 105) 05/30/18 16:22 Whole Bld Lactic Acid 0.88 mmol/L (0.60-1.99) 06/07/18 00:10 Calcium 8.1 mg/dL (8.6-10.3) L 06/08/18 04:45 Total Bilirubin 0.3 mg/dL (0.3-1.0) 06/08/18 04:45 AST 24 U/L (13-39) 06/08/18 04:45 ALT 57 U/L (7-52) H 06/08/18 04:45 Alkaline Phosphatase 62 U/L (34-104) 06/08/18 04:45 Troponin I < 0.01 ng/mL (0.01-0.05) L 05/30/18 10:13 Total Protein 5.2 gm/dL (6.0-8.3) L 06/08/18 04:45 Albumin 2.4 gm/dL (4.2-5.5) L 06/08/18 04:45 Globulin 2.8 gm/dL 06/08/18 04:45 Albumin/Globulin Ratio 0.9 (1.0-1.8) L 06/08/18 04:45 Urine Source CLEAN C 06/07/18 00:45 Urine Color YELLOW 06/07/18 00:45 Urine Clarity CLEAR (CLEAR) 06/07/18 00:45 Urine pH 7.0 (4.6 - 8.0) 06/07/18 00:45 Ur Specific [place] 1.015 (1.005-1.030) 06/07/18 00:45 Urine Protein NEGATIVE mg/dL (NEGATIVE) 06/07/18 00:45 Urine Glucose (UA) NEGATIVE mg/dL (NEGATIVE) 06/07/18 00:45 Urine Ketones NEGATIVE mg/dL (NEGATIVE) 06/07/18 00:45 Urine Blood NEGATIVE (NEGATIVE) 06/07/18 00:45 Urine Nitrate NEGATIVE (NEGATIVE) 06/07/18 00:45 Urine Bilirubin NEGATIVE (NEGATIVE) 06/07/18 00:45 Urine Urobilinogen 0.2 E.U./dL (0.2 - 1.0) 06/07/18 00:45 Ur Leukocyte Esterase NEGATIVE (NEGATIVE) 06/07/18 00:45 Urine WBC 0-2 /hpf (0-5) 06/07/18 00:45 Ur Epithelial Cells OCCASIONAL /lpf (FEW) 06/07/18 00:45 Urine Bacteria OCCASIONAL /hpf (NONE SEEN) 06/07/18 00:45 Urine Mucus FEW /lpf (FEW) 06/07/18 00:45 Fluid Glucose 106.0 mg/dL 06/05/18 10:45 Fluid Total Protein 3.3 g/dL 06/05/18 10:45 Fluid LDH 579 U/L 06/05/18 10:45 Vancomycin Trough 16.1 ug/mL (5-10) H 06/06/18 09:00 HIV 1&2 Antibody Screen NEGATIVE (NEG) 06/07/18 04:15 - Physical Exam Vitals and I&O: Vital Signs Temp 99.5 F 06/10/18 08:00 Pulse 93 06/10/18 09:00 Resp 21 06/10/18 09:00 BP 131/67 06/10/18 09:00 Pulse Ox 93 06/10/18 09:00 Intake & Output 06/09/18 06/10/18 06/10/18 18:59 06:59 18:59 Intake Total 600 600 Output Total 1100 500 Balance -500 100 Weight (lbs) 83.915 kg 83.915 kg Intake: Intake, IV Amount 50 cefTRIAXone 1 gm In 50 Sodium Chloride 0.9% 50 ml @ 100 mls/hr IV Q24HR [facility] Rx#:[id number] Oral 550 600 Output: Urine 1100 500 Other: # Bowel Movements 0 Weight Source Bedscale Bedscale Active Medications: Current Medications Acetaminophen (Tylenol Extra Strength) 500 mg PO Q6HR PRN PRN Reason: FEVER Stop: 07/29/18 17:21 Last Admin: 06/09/18 21:05 Dose: 500 mg Albuterol/Ipratropium (Duoneb Neb) 3 ml HHN Q6HRT [facility] Stop: 07/31/18 18:59 Last Admin: 06/10/18 06:28 Dose: 3 ml Betamethasone/Clotrimazole (Lotrisone Cream) 1 appl TP BID [facility] Stop: 06/12/18 16:59 Last Admin: 06/09/18 17:32 Dose: 1 appl Diphenhydramine HCl (Benadryl) 25 mg PO Q6HR PRN PRN Reason: Itching Stop: 08/06/18 17:21 Last Admin: 06/09/18 21:05 Dose: 25 mg Ceftriaxone Sodium 1 gm/ (Sodium Chloride) 50 mls @ 100 mls/hr IV Q24HR [facility] Stop: 07/29/18 15:43 Last Infusion: 06/09/18 16:20 Dose: Infused Ibuprofen (Motrin) 800 mg PO TID PRN PRN Reason: MILD TO MOD. PAIN Stop: 07/29/18 17:16 Last Admin: 06/08/18 12:24 Dose: 800 mg Lactobacillus Rhamnosus (Culturelle 15b) 1 each PO DAILY [facility] Stop: 08/04/18 08:59 Last Admin: 06/10/18 09:01 Dose: 1 each Miscellaneous (Probiotic Screen) 1 ea MC PRN PRN PRN Reason: PROTOCOL Stop: 08/03/18 09:44 Morphine Sulfate (Morphine) 2 mg IV Q4HR PRN PRN Reason: Severe Pain Stop: 07/29/18 17:14 Last Admin: 06/10/18 04:13 Dose: 2 mg Ondansetron HCl (Zofran) 4 mg IV Q6H PRN PRN Reason: NAUSEA Stop: 07/29/18 17:29 Pyridoxine HCl (Vitamin B6) 50 mg PO DAILY [facility] Stop: 08/06/18 08:59 Last Admin: 06/10/18 09:01 Dose: 50 mg Rivaroxaban (Xarelto) 20 mg PO DAILY [facility] Stop: 08/09/18 08:59 Last Admin: 06/10/18 09:01 Dose: 20 mg General: Alert HEENT: Atraumatic Neck: Supple Cardiovascular: Regular rate Lungs: Other (rales better) Abdomen: Soft Extremities: no Edema Skin: Rash (on the chest wall area) - Procedures Procedures: Procedures Procedure Code Date DRAINAGE OF RIGHT PLEURAL CAVITY, PERC APPROACH, DIAGN [id number] 05/30/18 Assessment/Plan - Assessment Assessment: * right lung consolidation and effusion * multiple bilateral pulmonary emboli * right upper ext thrombosis Continue eliquis and antibiotics and follow imaging for resolution; Continue iv antibiotics. 06/05: undergoing thoracentesis; last Eliquis was 24hrs ago, I'll give Kcentra to reverse Eliquis. may need bronchoscopy/biopsy if no resolution 06/06: hgb stable, cxr stable; cyndi Moseley, keep off anticoagulation one more day 06/07: hgb better. on isolation for AFB positive culure sputum. Restart Lovenox. cyndi Moseley 06/10: hgb stable. Continues to be on AFB isolation. Now on xarelto. CXR stable Nutritional Asmnt/Malnutr-PDOC - Dietary Evaluation Malnutrition Findings (Please click <Entered> for more info): Nutritional Asmnt/Malnutrition Start: 06/03/18 11: 57 Text: Status: Complete Freq: Protocol: Document 06/03/18 12:44 LCHENG (Rec: 06/03/18 12:48 LCHENG [email or web address]) Nutritional Asmnt/Malnutrition Patient General Information Nutritional Screening Moderate Risk Pertinent Medical Hx/Surgical Hx no sig medical hx, appendectomy, smokes about 15 cigarettes a day Subjective Information Pt seen lying in bed at time of visit, stating appetite so so. Pt consumed few breakfast today, has no food preference to give. Per EMR, PO intake 25 -50%. Per nurse, pt has DVT to right arm. Current Diet Order/ Nutrition Support regular Pertinent Medications vancomycin Pertinent Labs 05/30 Na 134, glucose 145, Ca 8. 4 Nutritional Hx/Data Height 1.83 m Height (Calculated Centimeters) 182.9 Current Weight (lbs) 87.09 kg Weight (Calculated Kilograms) 87.1 Weight (Calculated Grams) 31758.7 [place] Body Weight 178 Body Mass Index (BMI) 26.0 Weight Status Overweight GI Symptoms GI Symptoms None Last BM not indicated Difficult in: None Skin Integrity/Comment: intact Current %PO Poor (25-49%) Estimated Nutritional Goals BEE in Kcals: Using Current wt Calories/Kcals/Kg 25-30 based IBW 81kg Kcals Calculated 0540-5966 Protein: Using Current wt Protein g/k Protein Calculated 81 Fluid: ml 2024-2430ml (1ml/kcal) Nutritional Problem 1. Problem Problem inadequate food intake Etiology decreased appetite Signs/Symptoms: PO intake 25-30% Malnutrition Alert Is there a minimum of two criteria No selected? Query Text:Check all the applicable criteria. A minimum of two criteria are recommended for diagnosis of either severe or non-severe malnutrition. Malnutrition Related to Morbid Obesity Malnutrition related to morbid obesity No Intervention/Recommendation Comments 1. Continue with current diet as ordered. Encouraged oral intake. 2. Monitor PO intake, wt, labs and skin integrity 3. F/U as moderate risk in 3-5 days, 06/06-06/08, PO check Expected Outcomes/Goals Expected Outcomes/Goals 1. PO intake to meet at least 75% of nutritional needs. 2. Wt stability, skin to remain intact, labs to approach WNL.
--- NOTE | 2018-06-10 13:19 | Infectious Disease Prog Note ---
Infectious Disease Subjective - Review of Systems Service Date: 06/10/18 Subjective: had developed fevers. Infectious Disease Objective - Results Result Diagrams: 06/10/18 04:05 06/08/18 04:45 Recent Labs: Laboratory Last Values WBC 4.9 Th/cmm (4.8-10.8) 06/10/18 04:05 RBC 3.87 Mil/cmm (4.30-5.70) L 06/10/18 04:05 Hgb 11.6 gm/dL (12-16) L 06/10/18 04:05 Hct 34.2 % (41.0-60) L 06/10/18 04:05 MCV 88.4 fl (80-99) 06/10/18 04:05 MCH 29.9 pg (26.0-30.0) 06/10/18 04:05 MCHC Differential 33.8 pg (28.0-36.0) 06/10/18 04:05 RDW 12.8 % (11.5-20.0) 06/10/18 04:05 Plt Count 405 Th/cmm (150-400) H 06/10/18 04:05 MPV 6.9 fl 06/10/18 04:05 Add Manual Diff YES 06/06/18 04:20 Neutrophils % 60.9 % (40.0-80.0) 06/10/18 04:05 Band Neutrophils % 1 % (0-10) 06/06/18 04:20 Lymphocytes % 24.4 % (20.0-50.0) 06/10/18 04:05 Monocytes % 7.6 % (2.0-10.0) 06/10/18 04:05 Eosinophils % 5.9 % (0.0-5.0) H 06/10/18 04:05 Basophils % 1.2 % (0.0-2.0) 06/10/18 04:05 Neutrophils (Manual) 72 % (40-80) 06/06/18 04:20 Lymphocytes 20 % (20-50) 06/06/18 04:20 Monocytes 3 % (2-10) 06/06/18 04:20 Eosinophils 4 % (0-5) 06/06/18 04:20 Basophils 0 % (0-3) 06/05/18 08:00 Atypical Lymphocytes 5 % 06/06/18 04:20 Platelet Estimate ADEQUATE (NORMAL) 06/06/18 04:20 PT 10.8 SECONDS (9.5-11.5) 06/05/18 08:00 INR 1.04 (0.5-1.4) 06/05/18 08:00 PTT (Actin FS) 28.2 SECONDS (26.0-38.0) 06/05/18 08:00 D-Dimer 1240 ng/mL (100-400) H 05/30/18 10:00 Sodium 137 mEq/L (136-145) 06/08/18 04:45 Potassium 3.7 mEq/L (3.5-5.1) 06/08/18 04:45 Chloride 104 mEq/L (98-107) 06/08/18 04:45 Carbon Dioxide 25.8 mEq/L (21.0-31.0) 06/08/18 04:45 Anion Gap 10.9 (7.0-16.0) 06/08/18 04:45 BUN 9 mg/dL (7-25) 06/08/18 04:45 Creatinine 0.8 mg/dL (0.7-1.3) 06/08/18 04:45 Est GFR ( Amer) > 60.0 ml/min (>90) 06/08/18 04:45 Est GFR (Non-Af Amer) > 60.0 ml/min 06/08/18 04:45 BUN/Creatinine Ratio 11.3 06/08/18 04:45 Glucose 105 mg/dL (70-105) 06/08/18 04:45 POC Glucose 100 MG/DL (70 - 105) 05/30/18 16:22 Whole Bld Lactic Acid 0.88 mmol/L (0.60-1.99) 06/07/18 00:10 Calcium 8.1 mg/dL (8.6-10.3) L 06/08/18 04:45 Total Bilirubin 0.3 mg/dL (0.3-1.0) 06/08/18 04:45 AST 24 U/L (13-39) 06/08/18 04:45 ALT 57 U/L (7-52) H 06/08/18 04:45 Alkaline Phosphatase 62 U/L (34-104) 06/08/18 04:45 Troponin I < 0.01 ng/mL (0.01-0.05) L 05/30/18 10:13 Total Protein 5.2 gm/dL (6.0-8.3) L 06/08/18 04:45 Albumin 2.4 gm/dL (4.2-5.5) L 06/08/18 04:45 Globulin 2.8 gm/dL 06/08/18 04:45 Albumin/Globulin Ratio 0.9 (1.0-1.8) L 06/08/18 04:45 Urine Source CLEAN C 06/07/18 00:45 Urine Color YELLOW 06/07/18 00:45 Urine Clarity CLEAR (CLEAR) 06/07/18 00:45 Urine pH 7.0 (4.6 - 8.0) 06/07/18 00:45 Ur Specific [place] 1.015 (1.005-1.030) 06/07/18 00:45 Urine Protein NEGATIVE mg/dL (NEGATIVE) 06/07/18 00:45 Urine Glucose (UA) NEGATIVE mg/dL (NEGATIVE) 06/07/18 00:45 Urine Ketones NEGATIVE mg/dL (NEGATIVE) 06/07/18 00:45 Urine Blood NEGATIVE (NEGATIVE) 06/07/18 00:45 Urine Nitrate NEGATIVE (NEGATIVE) 06/07/18 00:45 Urine Bilirubin NEGATIVE (NEGATIVE) 06/07/18 00:45 Urine Urobilinogen 0.2 E.U./dL (0.2 - 1.0) 06/07/18 00:45 Ur Leukocyte Esterase NEGATIVE (NEGATIVE) 06/07/18 00:45 Urine WBC 0-2 /hpf (0-5) 06/07/18 00:45 Ur Epithelial Cells OCCASIONAL /lpf (FEW) 06/07/18 00:45 Urine Bacteria OCCASIONAL /hpf (NONE SEEN) 06/07/18 00:45 Urine Mucus FEW /lpf (FEW) 06/07/18 00:45 Fluid Glucose 106.0 mg/dL 06/05/18 10:45 Fluid Total Protein 3.3 g/dL 06/05/18 10:45 Fluid LDH 579 U/L 06/05/18 10:45 Vancomycin Trough 16.1 ug/mL (5-10) H 06/06/18 09:00 HIV 1&2 Antibody Screen NEGATIVE (NEG) 06/07/18 04:15 - Physical Exam Vitals and I&O: Vital Signs Temp 99.5 F 06/10/18 08:00 Pulse 94 06/10/18 12:05 Resp 18 06/10/18 12:05 BP 135/73 06/10/18 12:00 Pulse Ox 95 06/10/18 12:05 Intake & Output 06/09/18 06/10/18 06/10/18 18:59 06:59 18:59 Intake Total 600 600 Output Total 1100 500 Balance -500 100 Weight (lbs) 83.915 kg 83.915 kg Intake: Intake, IV Amount 50 cefTRIAXone 1 gm In 50 Sodium Chloride 0.9% 50 ml @ 100 mls/hr IV Q24HR [facility] Rx#:[id number] Oral 550 600 Output: Urine 1100 500 Other: # Bowel Movements 0 Weight Source Bedscale Bedscale Active Medications: Current Medications Acetaminophen (Tylenol Extra Strength) 500 mg PO Q6HR PRN PRN Reason: FEVER Stop: 07/29/18 17:21 Last Admin: 06/09/18 21:05 Dose: 500 mg Albuterol/Ipratropium (Duoneb Neb) 3 ml HHN Q6HRT ANANDA Stop: 07/31/18 18:59 Last Admin: 06/10/18 12:04 Dose: 3 ml Betamethasone/Clotrimazole (Lotrisone Cream) 1 appl TP BID ANANDA Stop: 06/12/18 16:59 Last Admin: 06/09/18 17:32 Dose: 1 appl Diphenhydramine HCl (Benadryl) 25 mg PO Q6HR PRN PRN Reason: Itching Stop: 08/06/18 17:21 Last Admin: 06/09/18 21:05 Dose: 25 mg Ceftriaxone Sodium 1 gm/ (Sodium Chloride) 50 mls @ 100 mls/hr IV Q24HR ANANDA Stop: 07/29/18 15:43 Last Infusion: 06/09/18 16:20 Dose: Infused Ibuprofen (Motrin) 800 mg PO TID PRN PRN Reason: MILD TO MOD. PAIN Stop: 07/29/18 17:16 Last Admin: 06/08/18 12:24 Dose: 800 mg Lactobacillus Rhamnosus (Culturelle 15b) 1 each PO DAILY ANANDA Stop: 08/04/18 08:59 Last Admin: 06/10/18 09:01 Dose: 1 each Miscellaneous (Probiotic Screen) 1 ea MC PRN PRN PRN Reason: PROTOCOL Stop: 08/03/18 09:44 Morphine Sulfate (Morphine) 2 mg IV Q4HR PRN PRN Reason: Severe Pain Stop: 07/29/18 17:14 Last Admin: 06/10/18 04:13 Dose: 2 mg Ondansetron HCl (Zofran) 4 mg IV Q6H PRN PRN Reason: NAUSEA Stop: 07/29/18 17:29 Rivaroxaban (Xarelto) 20 mg PO DAILY [facility] Stop: 08/09/18 08:59 Last Admin: 06/10/18 09:01 Dose: 20 mg General: no acute distress, well developed, well nourished HEENT: atraumatic, normocephalic, PERRLA, EOMI Neck: supple Cardiovascular: S1S2, regular Lungs: clear to auscultation bilaterally, clear to percussion Abdomen: soft, no tender, no distended Extremities: no cyanosis, no clubbing, no edema Neurological: awake, alert, oriented Skin: intact - Procedures Procedures: Procedures Procedure Code Date DRAINAGE OF RIGHT PLEURAL CAVITY, PERC APPROACH, DIAGN [id number] 05/30/18 Infectious Disease Assmt/Plan - Assessment Assessment: 1. Pneumonmia. 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 PE. 3. DVT. 4. Hemorrhagic pleural effusion. 5. Rash. Resolved. - Plan Plan: Continue rocephin. start INH and RIf with levaquin. wait for final ID of the AFB/Mycobacteria. Check MTB PCR. Check sputum for AFB x 3 airborne isolation. Nutritional Asmnt/Malnutr-PDOC - Dietary Evaluation Malnutrition Findings (Please click <Entered> for more info): Nutritional Asmnt/Malnutrition Start: 06/03/18 11: 57 Text: Status: Complete Freq: Protocol: Document 06/03/18 12:44 ELEONORA (Rec: 06/03/18 12:48 ELEONORA [email or web address]) Nutritional Asmnt/Malnutrition Patient General Information Nutritional Screening Moderate Risk Pertinent Medical Hx/Surgical Hx no sig medical hx, appendectomy, smokes about 15 cigarettes a day Subjective Information Pt seen lying in bed at time of visit, stating appetite so so. Pt consumed few breakfast today, has no food preference to give. Per EMR, PO intake 25 -50%. Per nurse, pt has DVT to right arm. Current Diet Order/ Nutrition Support regular Pertinent Medications vancomycin Pertinent Labs 05/30 Na 134, glucose 145, Ca 8. 4 Nutritional Hx/Data Height 1.83 m Height (Calculated Centimeters) 182.9 Current Weight (lbs) 87.09 kg Weight (Calculated Kilograms) 87.1 Weight (Calculated Grams) [address]222.7 [place] Body Weight 178 Body Mass Index (BMI) 26.0 Weight Status Overweight GI Symptoms GI Symptoms None Last BM not indicated Difficult in: None Skin Integrity/Comment: intact Current %PO Poor (25-49%) Estimated Nutritional Goals BEE in Kcals: Using Current wt Calories/Kcals/Kg 25-30 based IBW 81kg Kcals Calculated 9086-6470 Protein: Using Current wt Protein g/k Protein Calculated 81 Fluid: ml 2024-2430ml (1ml/kcal) Nutritional Problem 1. Problem Problem inadequate food intake Etiology decreased appetite Signs/Symptoms: PO intake 25-30% Malnutrition Alert Is there a minimum of two criteria No selected? Query Text:Check all the applicable criteria. A minimum of two criteria are recommended for diagnosis of either severe or non-severe malnutrition. Malnutrition Related to Morbid Obesity Malnutrition related to morbid obesity No Intervention/Recommendation Comments 1. Continue with current diet as ordered. Encouraged oral intake. 2. Monitor PO intake, wt, labs and skin integrity 3. F/U as moderate risk in 3-5 days, 06/06-06/08, PO check Expected Outcomes/Goals Expected Outcomes/Goals 1. PO intake to meet at least 75% of nutritional needs. 2. Wt stability, skin to remain intact, labs to approach WNL.
--- NOTE | 2018-06-10 14:15 | Infectious Disease Prog Note ---
Infectious Disease Subjective - Review of Systems Service Date: 06/10/18 Subjective: had developed fevers. Infectious Disease Objective - Results Result Diagrams: 06/10/18 04:05 06/08/18 04:45 Recent Labs: Laboratory Last Values WBC 4.9 Th/cmm (4.8-10.8) 06/10/18 04:05 RBC 3.87 Mil/cmm (4.30-5.70) L 06/10/18 04:05 Hgb 11.6 gm/dL (12-16) L 06/10/18 04:05 Hct 34.2 % (41.0-60) L 06/10/18 04:05 MCV 88.4 fl (80-99) 06/10/18 04:05 MCH 29.9 pg (26.0-30.0) 06/10/18 04:05 MCHC Differential 33.8 pg (28.0-36.0) 06/10/18 04:05 RDW 12.8 % (11.5-20.0) 06/10/18 04:05 Plt Count 405 Th/cmm (150-400) H 06/10/18 04:05 MPV 6.9 fl 06/10/18 04:05 Add Manual Diff YES 06/06/18 04:20 Neutrophils % 60.9 % (40.0-80.0) 06/10/18 04:05 Band Neutrophils % 1 % (0-10) 06/06/18 04:20 Lymphocytes % 24.4 % (20.0-50.0) 06/10/18 04:05 Monocytes % 7.6 % (2.0-10.0) 06/10/18 04:05 Eosinophils % 5.9 % (0.0-5.0) H 06/10/18 04:05 Basophils % 1.2 % (0.0-2.0) 06/10/18 04:05 Neutrophils (Manual) 72 % (40-80) 06/06/18 04:20 Lymphocytes 20 % (20-50) 06/06/18 04:20 Monocytes 3 % (2-10) 06/06/18 04:20 Eosinophils 4 % (0-5) 06/06/18 04:20 Basophils 0 % (0-3) 06/05/18 08:00 Atypical Lymphocytes 5 % 06/06/18 04:20 Platelet Estimate ADEQUATE (NORMAL) 06/06/18 04:20 PT 10.8 SECONDS (9.5-11.5) 06/05/18 08:00 INR 1.04 (0.5-1.4) 06/05/18 08:00 PTT (Actin FS) 28.2 SECONDS (26.0-38.0) 06/05/18 08:00 D-Dimer 1240 ng/mL (100-400) H 05/30/18 10:00 Sodium 137 mEq/L (136-145) 06/08/18 04:45 Potassium 3.7 mEq/L (3.5-5.1) 06/08/18 04:45 Chloride 104 mEq/L (98-107) 06/08/18 04:45 Carbon Dioxide 25.8 mEq/L (21.0-31.0) 06/08/18 04:45 Anion Gap 10.9 (7.0-16.0) 06/08/18 04:45 BUN 9 mg/dL (7-25) 06/08/18 04:45 Creatinine 0.8 mg/dL (0.7-1.3) 06/08/18 04:45 Est GFR ( Amer) > 60.0 ml/min (>90) 06/08/18 04:45 Est GFR (Non-Af Amer) > 60.0 ml/min 06/08/18 04:45 BUN/Creatinine Ratio 11.3 06/08/18 04:45 Glucose 105 mg/dL (70-105) 06/08/18 04:45 POC Glucose 100 MG/DL (70 - 105) 05/30/18 16:22 Whole Bld Lactic Acid 0.88 mmol/L (0.60-1.99) 06/07/18 00:10 Calcium 8.1 mg/dL (8.6-10.3) L 06/08/18 04:45 Total Bilirubin 0.3 mg/dL (0.3-1.0) 06/08/18 04:45 AST 24 U/L (13-39) 06/08/18 04:45 ALT 57 U/L (7-52) H 06/08/18 04:45 Alkaline Phosphatase 62 U/L (34-104) 06/08/18 04:45 Troponin I < 0.01 ng/mL (0.01-0.05) L 05/30/18 10:13 Total Protein 5.2 gm/dL (6.0-8.3) L 06/08/18 04:45 Albumin 2.4 gm/dL (4.2-5.5) L 06/08/18 04:45 Globulin 2.8 gm/dL 06/08/18 04:45 Albumin/Globulin Ratio 0.9 (1.0-1.8) L 06/08/18 04:45 Urine Source CLEAN C 06/07/18 00:45 Urine Color YELLOW 06/07/18 00:45 Urine Clarity CLEAR (CLEAR) 06/07/18 00:45 Urine pH 7.0 (4.6 - 8.0) 06/07/18 00:45 Ur Specific [place] 1.015 (1.005-1.030) 06/07/18 00:45 Urine Protein NEGATIVE mg/dL (NEGATIVE) 06/07/18 00:45 Urine Glucose (UA) NEGATIVE mg/dL (NEGATIVE) 06/07/18 00:45 Urine Ketones NEGATIVE mg/dL (NEGATIVE) 06/07/18 00:45 Urine Blood NEGATIVE (NEGATIVE) 06/07/18 00:45 Urine Nitrate NEGATIVE (NEGATIVE) 06/07/18 00:45 Urine Bilirubin NEGATIVE (NEGATIVE) 06/07/18 00:45 Urine Urobilinogen 0.2 E.U./dL (0.2 - 1.0) 06/07/18 00:45 Ur Leukocyte Esterase NEGATIVE (NEGATIVE) 06/07/18 00:45 Urine WBC 0-2 /hpf (0-5) 06/07/18 00:45 Ur Epithelial Cells OCCASIONAL /lpf (FEW) 06/07/18 00:45 Urine Bacteria OCCASIONAL /hpf (NONE SEEN) 06/07/18 00:45 Urine Mucus FEW /lpf (FEW) 06/07/18 00:45 Fluid Glucose 106.0 mg/dL 06/05/18 10:45 Fluid Total Protein 3.3 g/dL 06/05/18 10:45 Fluid LDH 579 U/L 06/05/18 10:45 Vancomycin Trough 16.1 ug/mL (5-10) H 06/06/18 09:00 HIV 1&2 Antibody Screen NEGATIVE (NEG) 06/07/18 04:15 - Physical Exam Vitals and I&O: Vital Signs Temp 99.0 F 06/10/18 12:00 Pulse 112 06/10/18 14:00 Resp 22 06/10/18 14:00 BP 105/51 06/10/18 14:00 Pulse Ox 94 06/10/18 14:00 Intake & Output 06/09/18 06/10/18 06/10/18 18:59 06:59 18:59 Intake Total 600 600 Output Total 1100 500 Balance -500 100 Weight (lbs) 83.915 kg 83.915 kg Intake: Intake, IV Amount 50 cefTRIAXone 1 gm In 50 Sodium Chloride 0.9% 50 ml @ 100 mls/hr IV Q24HR [facility] Rx#:[id number] Oral 550 600 Output: Urine 1100 500 Other: # Bowel Movements 0 Weight Source Bedscale Bedscale Active Medications: Current Medications Acetaminophen (Tylenol Extra Strength) 500 mg PO Q6HR PRN PRN Reason: FEVER Stop: 07/29/18 17:21 Last Admin: 06/09/18 21:05 Dose: 500 mg Albuterol/Ipratropium (Duoneb Neb) 3 ml HHN Q6HRT ANANDA Stop: 07/31/18 18:59 Last Admin: 06/10/18 12:04 Dose: 3 ml Betamethasone/Clotrimazole (Lotrisone Cream) 1 appl TP BID ANANDA Stop: 06/12/18 16:59 Last Admin: 06/09/18 17:32 Dose: 1 appl Diphenhydramine HCl (Benadryl) 25 mg PO Q6HR PRN PRN Reason: Itching Stop: 08/06/18 17:21 Last Admin: 06/09/18 21:05 Dose: 25 mg Ceftriaxone Sodium 1 gm/ (Sodium Chloride) 50 mls @ 100 mls/hr IV Q24HR ANANDA Stop: 07/29/18 15:43 Last Infusion: 06/09/18 16:20 Dose: Infused Ibuprofen (Motrin) 800 mg PO TID PRN PRN Reason: MILD TO MOD. PAIN Stop: 07/29/18 17:16 Last Admin: 06/08/18 12:24 Dose: 800 mg Isoniazid (Inh) 300 mg PO DAILY ANANDA Stop: 08/10/18 08:59 Lactobacillus Rhamnosus (Culturelle 15b) 1 each PO DAILY ANANDA Stop: 08/04/18 08:59 Last Admin: 06/10/18 09:01 Dose: 1 each Levofloxacin (Levaquin) 500 mg PO DAILY [facility] Stop: 08/10/18 08:59 Miscellaneous (Probiotic Screen) 1 ea MC PRN PRN PRN Reason: PROTOCOL Stop: 08/03/18 09:44 Morphine Sulfate (Morphine) 2 mg IV Q4HR PRN PRN Reason: Severe Pain Stop: 07/29/18 17:14 Last Admin: 06/10/18 04:13 Dose: 2 mg Ondansetron HCl (Zofran) 4 mg IV Q6H PRN PRN Reason: NAUSEA Stop: 07/29/18 17:29 Rifampin (Rifadin) 600 mg PO DAILY [facility] Stop: 08/10/18 08:59 Rivaroxaban (Xarelto) 20 mg PO DAILY [facility] Stop: 08/09/18 08:59 Last Admin: 06/10/18 09:01 Dose: 20 mg General: no acute distress HEENT: atraumatic, normocephalic, PERRLA, EOMI Neck: supple, no thyromegaly, no lymphadenopathy Cardiovascular: S1S2, regular Lungs: clear to auscultation bilaterally, clear to percussion Abdomen: soft, no tender, no distended, no mass, no rebound, no hepatomegaly, no splenomegaly Extremities: no cyanosis, no clubbing, no edema Neurological: awake, alert, oriented, CN 2-12 intact Skin: intact - Procedures Procedures: Procedures Procedure Code Date DRAINAGE OF RIGHT PLEURAL CAVITY, PERC APPROACH, DIAGN [id number] 05/30/18 Infectious Disease Assmt/Plan - Assessment Assessment: 1. Pneumonmia. 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 PE. 3. DVT. 4. Hemorrhagic pleural effusion. 5. Rash. Resolved. - Plan Plan: Continue rocephin. start INH and RIf with levaquin. and monitor. wait for final ID of the AFB/Mycobacteria. Check MTB PCR. Check sputum for AFB x 3 airborne isolation. Benadryl PRN. Nutritional Asmnt/Malnutr-PDOC - Dietary Evaluation Malnutrition Findings (Please click <Entered> for more info): Nutritional Asmnt/Malnutrition Start: 06/03/18 11: 57 Text: Status: Complete Freq: Protocol: Document 06/03/18 12:44 LCHENG (Rec: 06/03/18 12:48 [email or web address] [email or web address]) Nutritional Asmnt/Malnutrition Patient General Information Nutritional Screening Moderate Risk Pertinent Medical Hx/Surgical Hx no sig medical hx, appendectomy, smokes about 15 cigarettes a day Subjective Information Pt seen lying in bed at time of visit, stating appetite so so. Pt consumed few breakfast today, has no food preference to give. Per EMR, PO intake 25 -50%. Per nurse, pt has DVT to right arm. Current Diet Order/ Nutrition Support regular Pertinent Medications vancomycin Pertinent Labs 05/30 Na 134, glucose 145, Ca 8. 4 Nutritional Hx/Data Height 1.83 m Height (Calculated Centimeters) 182.9 Current Weight (lbs) 87.09 kg Weight (Calculated Kilograms) 87.1 Weight (Calculated Grams) 77392.7 [place] Body Weight 178 Body Mass Index (BMI) 26.0 Weight Status Overweight GI Symptoms GI Symptoms None Last BM not indicated Difficult in: None Skin Integrity/Comment: intact Current %PO Poor (25-49%) Estimated Nutritional Goals BEE in Kcals: Using Current wt Calories/Kcals/Kg 25-30 based IBW 81kg Kcals Calculated 8629-5898 Protein: Using Current wt Protein g/k Protein Calculated 81 Fluid: ml 2024-2430ml (1ml/kcal) Nutritional Problem 1. Problem Problem inadequate food intake Etiology decreased appetite Signs/Symptoms: PO intake 25-30% Malnutrition Alert Is there a minimum of two criteria No selected? Query Text:Check all the applicable criteria. A minimum of two criteria are recommended for diagnosis of either severe or non-severe malnutrition. Malnutrition Related to Morbid Obesity Malnutrition related to morbid obesity No Intervention/Recommendation Comments 1. Continue with current diet as ordered. Encouraged oral intake. 2. Monitor PO intake, wt, labs and skin integrity 3. F/U as moderate risk in 3-5 days, 06/06-06/08, PO check Expected Outcomes/Goals Expected Outcomes/Goals 1. PO intake to meet at least 75% of nutritional needs. 2. Wt stability, skin to remain intact, labs to approach WNL.
[2018-06-10] MEDS: Betamethasone/Clotrimazole Cream 15 gm Tube TP SCH ×2 (14:42→17:19)
[2018-06-10] MEDS: cefTRIAXone 1 GM in Sodium Chloride 0.9% 50 ML IV SCH (15:01)
[2018-06-10] MEDS ORDERED: Enoxaparin Subq per Pharmacy MC SCH (17:00)
--- NOTE | 2018-06-10 21:13 | General Progress Note ---
Subjective - Review of Systems Service Date: 06/10/18 Subjective: Patient seen and examined c/o difficulty sleeping requested sleeping pills Objective - Results Result Diagrams: 06/10/18 04:05 06/08/18 04:45 Recent Labs: Laboratory Last Values WBC 4.9 Th/cmm (4.8-10.8) 06/10/18 04:05 RBC 3.87 Mil/cmm (4.30-5.70) L 06/10/18 04:05 Hgb 11.6 gm/dL (12-16) L 06/10/18 04:05 Hct 34.2 % (41.0-60) L 06/10/18 04:05 MCV 88.4 fl (80-99) 06/10/18 04:05 MCH 29.9 pg (26.0-30.0) 06/10/18 04:05 MCHC Differential 33.8 pg (28.0-36.0) 06/10/18 04:05 RDW 12.8 % (11.5-20.0) 06/10/18 04:05 Plt Count 405 Th/cmm (150-400) H 06/10/18 04:05 MPV 6.9 fl 06/10/18 04:05 Add Manual Diff YES 06/06/18 04:20 Neutrophils % 60.9 % (40.0-80.0) 06/10/18 04:05 Band Neutrophils % 1 % (0-10) 06/06/18 04:20 Lymphocytes % 24.4 % (20.0-50.0) 06/10/18 04:05 Monocytes % 7.6 % (2.0-10.0) 06/10/18 04:05 Eosinophils % 5.9 % (0.0-5.0) H 06/10/18 04:05 Basophils % 1.2 % (0.0-2.0) 06/10/18 04:05 Neutrophils (Manual) 72 % (40-80) 06/06/18 04:20 Lymphocytes 20 % (20-50) 06/06/18 04:20 Monocytes 3 % (2-10) 06/06/18 04:20 Eosinophils 4 % (0-5) 06/06/18 04:20 Basophils 0 % (0-3) 06/05/18 08:00 Atypical Lymphocytes 5 % 06/06/18 04:20 Platelet Estimate ADEQUATE (NORMAL) 06/06/18 04:20 PT 10.8 SECONDS (9.5-11.5) 06/05/18 08:00 INR 1.04 (0.5-1.4) 06/05/18 08:00 PTT (Actin FS) 28.2 SECONDS (26.0-38.0) 06/05/18 08:00 D-Dimer 1240 ng/mL (100-400) H 05/30/18 10:00 Sodium 137 mEq/L (136-145) 06/08/18 04:45 Potassium 3.7 mEq/L (3.5-5.1) 06/08/18 04:45 Chloride 104 mEq/L (98-107) 06/08/18 04:45 Carbon Dioxide 25.8 mEq/L (21.0-31.0) 06/08/18 04:45 Anion Gap 10.9 (7.0-16.0) 06/08/18 04:45 BUN 9 mg/dL (7-25) 06/08/18 04:45 Creatinine 0.8 mg/dL (0.7-1.3) 06/08/18 04:45 Est GFR ( Amer) > 60.0 ml/min (>90) 06/08/18 04:45 Est GFR (Non-Af Amer) > 60.0 ml/min 06/08/18 04:45 BUN/Creatinine Ratio 11.3 06/08/18 04:45 Glucose 105 mg/dL (70-105) 06/08/18 04:45 POC Glucose 100 MG/DL (70 - 105) 05/30/18 16:22 Whole Bld Lactic Acid 0.88 mmol/L (0.60-1.99) 06/07/18 00:10 Calcium 8.1 mg/dL (8.6-10.3) L 06/08/18 04:45 Total Bilirubin 0.3 mg/dL (0.3-1.0) 06/08/18 04:45 AST 24 U/L (13-39) 06/08/18 04:45 ALT 57 U/L (7-52) H 06/08/18 04:45 Alkaline Phosphatase 62 U/L (34-104) 06/08/18 04:45 Troponin I < 0.01 ng/mL (0.01-0.05) L 05/30/18 10:13 Total Protein 5.2 gm/dL (6.0-8.3) L 06/08/18 04:45 Albumin 2.4 gm/dL (4.2-5.5) L 06/08/18 04:45 Globulin 2.8 gm/dL 06/08/18 04:45 Albumin/Globulin Ratio 0.9 (1.0-1.8) L 06/08/18 04:45 Urine Source CLEAN C 06/07/18 00:45 Urine Color YELLOW 06/07/18 00:45 Urine Clarity CLEAR (CLEAR) 06/07/18 00:45 Urine pH 7.0 (4.6 - 8.0) 06/07/18 00:45 Ur Specific [place] 1.015 (1.005-1.030) 06/07/18 00:45 Urine Protein NEGATIVE mg/dL (NEGATIVE) 06/07/18 00:45 Urine Glucose (UA) NEGATIVE mg/dL (NEGATIVE) 06/07/18 00:45 Urine Ketones NEGATIVE mg/dL (NEGATIVE) 06/07/18 00:45 Urine Blood NEGATIVE (NEGATIVE) 06/07/18 00:45 Urine Nitrate NEGATIVE (NEGATIVE) 06/07/18 00:45 Urine Bilirubin NEGATIVE (NEGATIVE) 06/07/18 00:45 Urine Urobilinogen 0.2 E.U./dL (0.2 - 1.0) 06/07/18 00:45 Ur Leukocyte Esterase NEGATIVE (NEGATIVE) 06/07/18 00:45 Urine WBC 0-2 /hpf (0-5) 06/07/18 00:45 Ur Epithelial Cells OCCASIONAL /lpf (FEW) 06/07/18 00:45 Urine Bacteria OCCASIONAL /hpf (NONE SEEN) 06/07/18 00:45 Urine Mucus FEW /lpf (FEW) 06/07/18 00:45 Fluid Glucose 106.0 mg/dL 06/05/18 10:45 Fluid Total Protein 3.3 g/dL 06/05/18 10:45 Fluid LDH 579 U/L 06/05/18 10:45 Vancomycin Trough 16.1 ug/mL (5-10) H 06/06/18 09:00 HIV 1&2 Antibody Screen NEGATIVE (NEG) 06/07/18 04:15 - Physical Exam Vitals and I&O: Vital Signs Temp 99.0 F 06/10/18 16:00 Pulse 96 06/10/18 19:37 Resp 18 06/10/18 19:37 BP 126/82 06/10/18 18:00 Pulse Ox 96 06/10/18 19:37 Intake & Output 06/10/18 06/10/18 06/11/18 06:59 18:59 06:59 Intake Total 600 1030 Output Total 500 850 Balance 100 180 Weight (lbs) 83.915 kg 83.915 kg Intake: Intake, IV Amount 50 cefTRIAXone 1 gm In 50 Sodium Chloride 0.9% 50 ml @ 100 mls/hr IV Q24HR [facility] Rx#:[id number] Oral 600 980 Output: Urine 500 850 Other: # Bowel Movements 0 0 Weight Source Bedscale Bedscale Active Medications: Current Medications Acetaminophen (Tylenol Extra Strength) 500 mg PO Q6HR PRN PRN Reason: FEVER Stop: 07/29/18 17:21 Last Admin: 06/09/18 21:05 Dose: 500 mg Albuterol/Ipratropium (Duoneb Neb) 3 ml HHN Q6HRT [facility] Stop: 07/31/18 18:59 Last Admin: 06/10/18 19:37 Dose: 3 ml Betamethasone/Clotrimazole (Lotrisone Cream) 1 appl TP BID [facility] Stop: 06/12/18 16:59 Last Admin: 06/10/18 17:19 Dose: 1 appl Diphenhydramine HCl (Benadryl) 25 mg PO Q6HR PRN PRN Reason: Itching Stop: 08/06/18 17:21 Last Admin: 06/09/18 21:05 Dose: 25 mg Enoxaparin Sodium (Lovenox) 80 mg SUBQ Q12H [facility] Stop: 08/10/18 08:59 Ceftriaxone Sodium 1 gm/ (Sodium Chloride) 50 mls @ 100 mls/hr IV Q24HR [facility] Stop: 07/29/18 15:43 Last Infusion: 06/10/18 15:35 Dose: Infused Ibuprofen (Motrin) 800 mg PO TID PRN PRN Reason: MILD TO MOD. PAIN Stop: 07/29/18 17:16 Last Admin: 06/08/18 12:24 Dose: 800 mg Isoniazid (Inh) 300 mg PO DAILY [facility] Stop: 08/10/18 08:59 Lactobacillus Rhamnosus (Culturelle 15b) 1 each PO DAILY [facility] Stop: 08/04/18 08:59 Last Admin: 06/10/18 09:01 Dose: 1 each Levofloxacin (Levaquin) 500 mg PO DAILY@1300 [facility] Stop: 08/10/18 12:59 Lorazepam (Ativan) 1 mg PO Q6HR PRN; Protocol PRN Reason: Sleeplessness Stop: 08/09/18 16:49 Last Admin: 06/10/18 20:24 Dose: 1 mg Miscellaneous (Probiotic Screen) 1 ea PRN PRN PRN Reason: PROTOCOL Stop: 08/03/18 09:44 Miscellaneous (Lovenox Subq Per Pharmacy) 1 [facility] PRN ANANDA; Protocol Stop: 08/09/18 16:59 Morphine Sulfate (Morphine) 2 mg IV Q4HR PRN PRN Reason: Severe Pain Stop: 07/29/18 17:14 Last Admin: 06/10/18 04:13 Dose: 2 mg Ondansetron HCl (Zofran) 4 mg IV Q6H PRN PRN Reason: NAUSEA Stop: 07/29/18 17:29 Rifampin (Rifadin) 600 mg PO DAILY@1700 [facility] Stop: 08/10/18 16:59 General: Alert Cardiovascular: Regular rate Lungs: Other (rales better) Extremities: no Edema Skin: Rash (on the chest wall area) - Procedures Procedures: Procedures Procedure Code Date DRAINAGE OF RIGHT PLEURAL CAVITY, PERC APPROACH, DIAGN [id number] 05/30/18 Assessment/Plan - Assessment Assessment: Bilateral PE pneumonia Hemorrhagic pleural effusion s/p thoracentesis Right UE DVT Dermatitis Positive AFB - Plan Plan: I discussed case with DR SONG and DR Jorge SHERWOOD who both recomended patient should be on TB meds until TB ruled out. MT PCR ordered by pulmonary pending result I exaplained patient and his sister over the phone re: ongoing treatment and plan of care They both understood well Air borne isolation Lovenox restarted per pulmonary recommendation Xarelto dcd Ativan prn Follow sputum AFB Continue iv antibiotics TB treatment per ID Benadryl prn Patient was updated on plan of care Nutritional Asmnt/Malnutr-PDOC - Dietary Evaluation Malnutrition Findings (Please click <Entered> for more info): Nutritional Asmnt/Malnutrition Start: 06/03/18 11: 57 Text: Status: Complete Freq: Protocol: Document 06/03/18 12:44 LUIS FERNANDOLANA (Rec: 06/03/18 12:48 ELEONORA NORRIS-[email or web address]) Nutritional Asmnt/Malnutrition Patient General Information Nutritional Screening Moderate Risk Pertinent Medical Hx/Surgical Hx no sig medical hx, appendectomy, smokes about 15 cigarettes a day Subjective Information Pt seen lying in bed at time of visit, stating appetite so so. Pt consumed few breakfast today, has no food preference to give. Per EMR, PO intake 25 -50%. Per nurse, pt has DVT to right arm. Current Diet Order/ Nutrition Support regular Pertinent Medications vancomycin Pertinent Labs 05/30 Na 134, glucose 145, Ca 8. 4 Nutritional Hx/Data Height 1.83 m Height (Calculated Centimeters) 182.9 Current Weight (lbs) 87.09 kg Weight (Calculated Kilograms) 87.1 Weight (Calculated Grams) 43334.7 [place] Body Weight 178 Body Mass Index (BMI) 26.0 Weight Status Overweight GI Symptoms GI Symptoms None Last BM not indicated Difficult in: None Skin Integrity/Comment: intact Current %PO Poor (25-49%) Estimated Nutritional Goals BEE in Kcals: Using Current wt Calories/Kcals/Kg 25-30 based IBW 81kg Kcals Calculated 7495-1883 Protein: Using Current wt Protein g/k Protein Calculated 81 Fluid: ml 2024-2430ml (1ml/kcal) Nutritional Problem 1. Problem Problem inadequate food intake Etiology decreased appetite Signs/Symptoms: PO intake 25-30% Malnutrition Alert Is there a minimum of two criteria No selected? Query Text:Check all the applicable criteria. A minimum of two criteria are recommended for diagnosis of either severe or non-severe malnutrition. Malnutrition Related to Morbid Obesity Malnutrition related to morbid obesity No Intervention/Recommendation Comments 1. Continue with current diet as ordered. Encouraged oral intake. 2. Monitor PO intake, wt, labs and skin integrity 3. F/U as moderate risk in 3-5 days, 06/06-06/08, PO check Expected Outcomes/Goals Expected Outcomes/Goals 1. PO intake to meet at least 75% of nutritional needs. 2. Wt stability, skin to remain intact, labs to approach WNL.
[2018-06-11] MEDS: Albuterol/Ipratropium Neb 3 ML AERS HHN SCH ×4 (00:50→19:35)
[2018-06-11] MEDS: Morphine Sulfate 2 mg/mL 1mL Syr IV PRN ×3 (03:35→20:09)
[2018-06-11] MEDS: Lactobacillus Rhamnosus GG 15 Billion CFU CAP.SPRINK PO SCH (08:48)
[2018-06-11] MEDS: Enoxaparin 80 mg/0.8 mL 0.8mL Syr SUBQ SCH ×2 (08:48→21:43)
--- NOTE | 2018-06-11 08:53 | Diagnostic Imaging Report ---
CHEST X-RAY: AP view INDICATION: Shortness of breath COMPARISON: 06/08/2018 FINDINGS: Right effusion is again noted with right lung infiltrates. Small left effusion is also noted with left basal atelectasis versus infiltrate. Heart size is normal. IMPRESSION: Unchanged right effusion and right apical pleural capping and right lung infiltrates. Trace left effusion with left basal atelectasis versus infiltrate.
[2018-06-11] MEDS: Betamethasone/Clotrimazole Cream 15 gm Tube TP SCH ×2 (09:31→16:52)
[2018-06-11 10:23] LABS: HEP A AB IGM Negative (Negative); HEP B CORE IGM Negative (Negative); HEP B SURFACE AG QL Negative (Negative); HEP C ANTIBODY <0.1 s/co ratio (0.0-0.9)
--- NOTE | 2018-06-11 14:08 | Infectious Disease Prog Note ---
Infectious Disease Subjective - Review of Systems Service Date: 06/11/18 Subjective: no fevers. Infectious Disease Objective - Results Result Diagrams: 06/10/18 04:05 06/08/18 04:45 Recent Labs: Laboratory Last Values WBC 4.9 Th/cmm (4.8-10.8) 06/10/18 04:05 RBC 3.87 Mil/cmm (4.30-5.70) L 06/10/18 04:05 Hgb 11.6 gm/dL (12-16) L 06/10/18 04:05 Hct 34.2 % (41.0-60) L 06/10/18 04:05 MCV 88.4 fl (80-99) 06/10/18 04:05 MCH 29.9 pg (26.0-30.0) 06/10/18 04:05 MCHC Differential 33.8 pg (28.0-36.0) 06/10/18 04:05 RDW 12.8 % (11.5-20.0) 06/10/18 04:05 Plt Count 405 Th/cmm (150-400) H 06/10/18 04:05 MPV 6.9 fl 06/10/18 04:05 Add Manual Diff YES 06/06/18 04:20 Neutrophils % 60.9 % (40.0-80.0) 06/10/18 04:05 Band Neutrophils % 1 % (0-10) 06/06/18 04:20 Lymphocytes % 24.4 % (20.0-50.0) 06/10/18 04:05 Monocytes % 7.6 % (2.0-10.0) 06/10/18 04:05 Eosinophils % 5.9 % (0.0-5.0) H 06/10/18 04:05 Basophils % 1.2 % (0.0-2.0) 06/10/18 04:05 Neutrophils (Manual) 72 % (40-80) 06/06/18 04:20 Lymphocytes 20 % (20-50) 06/06/18 04:20 Monocytes 3 % (2-10) 06/06/18 04:20 Eosinophils 4 % (0-5) 06/06/18 04:20 Basophils 0 % (0-3) 06/05/18 08:00 Atypical Lymphocytes 5 % 06/06/18 04:20 Platelet Estimate ADEQUATE (NORMAL) 06/06/18 04:20 PT 10.8 SECONDS (9.5-11.5) 06/05/18 08:00 INR 1.04 (0.5-1.4) 06/05/18 08:00 PTT (Actin FS) 28.2 SECONDS (26.0-38.0) 06/05/18 08:00 D-Dimer 1240 ng/mL (100-400) H 05/30/18 10:00 Sodium 137 mEq/L (136-145) 06/08/18 04:45 Potassium 3.7 mEq/L (3.5-5.1) 06/08/18 04:45 Chloride 104 mEq/L (98-107) 06/08/18 04:45 Carbon Dioxide 25.8 mEq/L (21.0-31.0) 06/08/18 04:45 Anion Gap 10.9 (7.0-16.0) 06/08/18 04:45 BUN 9 mg/dL (7-25) 06/08/18 04:45 Creatinine 0.8 mg/dL (0.7-1.3) 06/08/18 04:45 Est GFR ( Amer) > 60.0 ml/min (>90) 06/08/18 04:45 Est GFR (Non-Af Amer) > 60.0 ml/min 06/08/18 04:45 BUN/Creatinine Ratio 11.3 06/08/18 04:45 Glucose 105 mg/dL (70-105) 06/08/18 04:45 POC Glucose 100 MG/DL (70 - 105) 05/30/18 16:22 Whole Bld Lactic Acid 0.88 mmol/L (0.60-1.99) 06/07/18 00:10 Calcium 8.1 mg/dL (8.6-10.3) L 06/08/18 04:45 Total Bilirubin 0.3 mg/dL (0.3-1.0) 06/08/18 04:45 AST 24 U/L (13-39) 06/08/18 04:45 ALT 57 U/L (7-52) H 06/08/18 04:45 Alkaline Phosphatase 62 U/L (34-104) 06/08/18 04:45 Troponin I < 0.01 ng/mL (0.01-0.05) L 05/30/18 10:13 Total Protein 5.2 gm/dL (6.0-8.3) L 06/08/18 04:45 Albumin 2.4 gm/dL (4.2-5.5) L 06/08/18 04:45 Globulin 2.8 gm/dL 06/08/18 04:45 Albumin/Globulin Ratio 0.9 (1.0-1.8) L 06/08/18 04:45 Urine Source CLEAN C 06/07/18 00:45 Urine Color YELLOW 06/07/18 00:45 Urine Clarity CLEAR (CLEAR) 06/07/18 00:45 Urine pH 7.0 (4.6 - 8.0) 06/07/18 00:45 Ur Specific [place] 1.015 (1.005-1.030) 06/07/18 00:45 Urine Protein NEGATIVE mg/dL (NEGATIVE) 06/07/18 00:45 Urine Glucose (UA) NEGATIVE mg/dL (NEGATIVE) 06/07/18 00:45 Urine Ketones NEGATIVE mg/dL (NEGATIVE) 06/07/18 00:45 Urine Blood NEGATIVE (NEGATIVE) 06/07/18 00:45 Urine Nitrate NEGATIVE (NEGATIVE) 06/07/18 00:45 Urine Bilirubin NEGATIVE (NEGATIVE) 06/07/18 00:45 Urine Urobilinogen 0.2 E.U./dL (0.2 - 1.0) 06/07/18 00:45 Ur Leukocyte Esterase NEGATIVE (NEGATIVE) 06/07/18 00:45 Urine WBC 0-2 /hpf (0-5) 06/07/18 00:45 Ur Epithelial Cells OCCASIONAL /lpf (FEW) 06/07/18 00:45 Urine Bacteria OCCASIONAL /hpf (NONE SEEN) 06/07/18 00:45 Urine Mucus FEW /lpf (FEW) 06/07/18 00:45 Fluid Glucose 106.0 mg/dL 06/05/18 10:45 Fluid Total Protein 3.3 g/dL 06/05/18 10:45 Fluid LDH 579 U/L 06/05/18 10:45 Vancomycin Trough 16.1 ug/mL (5-10) H 06/06/18 09:00 Hepatitis A IgM Ab Negative (Negative) 06/10/18 04:05 Hep Bs Antigen Negative (Negative) 06/10/18 04:05 Hep B Core IgM Ab Negative (Negative) 06/10/18 04:05 Hepatitis C Antibody <0.1 s/co ratio (0.0-0.9) 06/10/18 04:05 HIV 1&2 Antibody Screen NEGATIVE (NEG) 06/07/18 04:15 - Physical Exam Vitals and I&O: Vital Signs Temp 99.2 F 06/11/18 08:00 Pulse 83 06/11/18 10:00 Resp 20 06/11/18 10:00 BP 120/73 06/11/18 10:00 Pulse Ox 95 06/11/18 10:00 Intake & Output 06/10/18 06/11/18 06/11/18 18:59 06:59 18:59 Intake Total 1030 375 Output Total 850 600 Balance 180 -225 Weight (lbs) 83.915 kg 83.915 kg Intake: Intake, IV Amount 50 cefTRIAXone 1 gm In 50 Sodium Chloride 0.9% 50 ml @ 100 mls/hr IV Q24HR [facility] Rx#:[id number] Oral 980 375 Output: Urine 850 600 Other: # Bowel Movements 0 0 Weight Source Bedscale Bedscale Active Medications: Current Medications Acetaminophen (Tylenol Extra Strength) 500 mg PO Q6HR PRN PRN Reason: FEVER Stop: 07/29/18 17:21 Last Admin: 06/09/18 21:05 Dose: 500 mg Albuterol/Ipratropium (Duoneb Neb) 3 ml HHN Q6HRT [facility] Stop: 07/31/18 18:59 Last Admin: 06/11/18 07:27 Dose: 3 ml Betamethasone/Clotrimazole (Lotrisone Cream) 1 appl TP BID [facility] Stop: 06/12/18 16:59 Last Admin: 06/11/18 09:31 Dose: 1 appl Diphenhydramine HCl (Benadryl) 25 mg PO Q6HR PRN PRN Reason: Itching Stop: 08/06/18 17:21 Last Admin: 06/09/18 21:05 Dose: 25 mg Enoxaparin Sodium (Lovenox) 80 mg SUBQ Q12H [facility] Stop: 08/10/18 08:59 Last Admin: 06/11/18 08:48 Dose: 80 mg Ceftriaxone Sodium 1 gm/ (Sodium Chloride) 50 mls @ 100 mls/hr IV Q24HR [facility] Stop: 07/29/18 15:43 Last Infusion: 06/10/18 15:35 Dose: Infused Ibuprofen (Motrin) 800 mg PO TID PRN PRN Reason: MILD TO MOD. PAIN Stop: 07/29/18 17:16 Last Admin: 06/08/18 12:24 Dose: 800 mg Isoniazid (Inh) 300 mg PO DAILY [facility] Stop: 08/10/18 08:59 Last Admin: 06/11/18 08:49 Dose: 300 mg Lactobacillus Rhamnosus (Culturelle 15b) 1 each PO DAILY [facility] Stop: 08/04/18 08:59 Last Admin: 06/11/18 08:48 Dose: 1 each Levofloxacin (Levaquin) 500 mg PO DAILY@1300 [facility] Stop: 08/10/18 12:59 Last Admin: 06/11/18 12:24 Dose: 500 mg Lorazepam (Ativan) 1 mg PO Q6HR PRN; Protocol PRN Reason: Sleeplessness Stop: 08/09/18 16:49 Last Admin: 06/10/18 20:24 Dose: 1 mg Miscellaneous (Probiotic Screen) 1 ea PRN PRN PRN Reason: PROTOCOL Stop: 08/03/18 09:44 Miscellaneous (Lovenox Subq Per Pharmacy) 1 ea PRN [facility]; Protocol Stop: 08/09/18 16:59 Morphine Sulfate (Morphine) 2 mg IV Q4HR PRN PRN Reason: Severe Pain Stop: 07/29/18 17:14 Last Admin: 06/11/18 09:22 Dose: 2 mg Ondansetron HCl (Zofran) 4 mg IV Q6H PRN PRN Reason: NAUSEA Stop: 07/29/18 17:29 Rifampin (Rifadin) 600 mg PO DAILY@1700 [facility] Stop: 08/10/18 16:59 General: no acute distress, well developed, well nourished HEENT: atraumatic, normocephalic, PERRLA Neck: supple, no thyromegaly Cardiovascular: S1S2, regular Lungs: clear to auscultation bilaterally, clear to percussion Abdomen: soft, no tender Extremities: no cyanosis, no clubbing, no edema Neurological: awake, alert, oriented Skin: intact, no rash, no subcutaneous nodules - Procedures Procedures: Procedures Procedure Code Date DRAINAGE OF RIGHT PLEURAL CAVITY, PERC APPROACH, DIAGN [id number] 05/30/18 Infectious Disease Assmt/Plan - Assessment Assessment: 1. Pneumonmia. RUL, AFB smear positive >2 weeks. 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 2. PE. 3. DVT. 4. Hemorrhagic pleural effusion. 5. Rash. Resolved. - Plan Plan: Continue rocephin. start INH and RIf with levaquin. and monitor. wait for final ID of the AFB/Mycobacteria. Check MTB PCR. Check sputum for AFB x 3 airborne isolation. Benadryl PRN. Nutritional Asmnt/Malnutr-PDOC - Dietary Evaluation Malnutrition Findings (Please click <Entered> for more info): Nutritional Asmnt/Malnutrition Start: 06/03/18 11: 57 Text: Status: Complete Freq: Protocol: Document 06/03/18 12:44 LCHARJITG (Rec: 06/03/18 12:48 LCHARJITG NORRIS-[email or web address]) Nutritional Asmnt/Malnutrition Patient General Information Nutritional Screening Moderate Risk Pertinent Medical Hx/Surgical Hx no sig medical hx, appendectomy, smokes about 15 cigarettes a day Subjective Information Pt seen lying in bed at time of visit, stating appetite so so. Pt consumed few breakfast today, has no food preference to give. Per EMR, PO intake 25 -50%. Per nurse, pt has DVT to right arm. Current Diet Order/ Nutrition Support regular Pertinent Medications vancomycin Pertinent Labs 05/30 Na 134, glucose 145, Ca 8. 4 Nutritional Hx/Data Height 1.83 m Height (Calculated Centimeters) 182.9 Current Weight (lbs) 87.09 kg Weight (Calculated Kilograms) 87.1 Weight (Calculated Grams) 33854.7 [place] Body Weight 178 Body Mass Index (BMI) 26.0 Weight Status Overweight GI Symptoms GI Symptoms None Last BM not indicated Difficult in: None Skin Integrity/Comment: intact Current %PO Poor (25-49%) Estimated Nutritional Goals BEE in Kcals: Using Current wt Calories/Kcals/Kg 25-30 based IBW 81kg Kcals Calculated 3785-8686 Protein: Using Current wt Protein g/k Protein Calculated 81 Fluid: ml 2024-243ml (1ml/kcal) Nutritional Problem 1. Problem Problem inadequate food intake Etiology decreased appetite Signs/Symptoms: PO intake 25-30% Malnutrition Alert Is there a minimum of two criteria No selected? Query Text:Check all the applicable criteria. A minimum of two criteria are recommended for diagnosis of either severe or non-severe malnutrition. Malnutrition Related to Morbid Obesity Malnutrition related to morbid obesity No Intervention/Recommendation Comments 1. Continue with current diet as ordered. Encouraged oral intake. 2. Monitor PO intake, wt, labs and skin integrity 3. F/U as moderate risk in 3-5 days, 06/06-06/08, PO check Expected Outcomes/Goals Expected Outcomes/Goals 1. PO intake to meet at least 75% of nutritional needs. 2. Wt stability, skin to remain intact, labs to approach WNL.
[2018-06-11] MEDS: cefTRIAXone 1 GM in Sodium Chloride 0.9% 50 ML IV SCH (15:29)
[2018-06-11] MEDS: Rifampin 300 mg Cap PO SCH (16:50)
--- NOTE | 2018-06-11 20:43 | General Progress Note ---
Subjective - Review of Systems Service Date: 06/11/18 Subjective: Patient seen and examined still c/o difficulty sleeping inspite of ativan requested something different Objective - Results Result Diagrams: 06/10/18 04:05 06/08/18 04:45 Recent Labs: Laboratory Last Values WBC 4.9 Th/cmm (4.8-10.8) 06/10/18 04:05 RBC 3.87 Mil/cmm (4.30-5.70) L 06/10/18 04:05 Hgb 11.6 gm/dL (12-16) L 06/10/18 04:05 Hct 34.2 % (41.0-60) L 06/10/18 04:05 MCV 88.4 fl (80-99) 06/10/18 04:05 MCH 29.9 pg (26.0-30.0) 06/10/18 04:05 MCHC Differential 33.8 pg (28.0-36.0) 06/10/18 04:05 RDW 12.8 % (11.5-20.0) 06/10/18 04:05 Plt Count 405 Th/cmm (150-400) H 06/10/18 04:05 MPV 6.9 fl 06/10/18 04:05 Add Manual Diff YES 06/06/18 04:20 Neutrophils % 60.9 % (40.0-80.0) 06/10/18 04:05 Band Neutrophils % 1 % (0-10) 06/06/18 04:20 Lymphocytes % 24.4 % (20.0-50.0) 06/10/18 04:05 Monocytes % 7.6 % (2.0-10.0) 06/10/18 04:05 Eosinophils % 5.9 % (0.0-5.0) H 06/10/18 04:05 Basophils % 1.2 % (0.0-2.0) 06/10/18 04:05 Neutrophils (Manual) 72 % (40-80) 06/06/18 04:20 Lymphocytes 20 % (20-50) 06/06/18 04:20 Monocytes 3 % (2-10) 06/06/18 04:20 Eosinophils 4 % (0-5) 06/06/18 04:20 Basophils 0 % (0-3) 06/05/18 08:00 Atypical Lymphocytes 5 % 06/06/18 04:20 Platelet Estimate ADEQUATE (NORMAL) 06/06/18 04:20 PT 10.8 SECONDS (9.5-11.5) 06/05/18 08:00 INR 1.04 (0.5-1.4) 06/05/18 08:00 PTT (Actin FS) 28.2 SECONDS (26.0-38.0) 06/05/18 08:00 D-Dimer 1240 ng/mL (100-400) H 05/30/18 10:00 Sodium 137 mEq/L (136-145) 06/08/18 04:45 Potassium 3.7 mEq/L (3.5-5.1) 06/08/18 04:45 Chloride 104 mEq/L (98-107) 06/08/18 04:45 Carbon Dioxide 25.8 mEq/L (21.0-31.0) 06/08/18 04:45 Anion Gap 10.9 (7.0-16.0) 06/08/18 04:45 BUN 9 mg/dL (7-25) 06/08/18 04:45 Creatinine 0.8 mg/dL (0.7-1.3) 06/08/18 04:45 Est GFR ( Amer) > 60.0 ml/min (>90) 06/08/18 04:45 Est GFR (Non-Af Amer) > 60.0 ml/min 06/08/18 04:45 BUN/Creatinine Ratio 11.3 06/08/18 04:45 Glucose 105 mg/dL (70-105) 06/08/18 04:45 POC Glucose 100 MG/DL (70 - 105) 05/30/18 16:22 Whole Bld Lactic Acid 0.88 mmol/L (0.60-1.99) 06/07/18 00:10 Calcium 8.1 mg/dL (8.6-10.3) L 06/08/18 04:45 Total Bilirubin 0.3 mg/dL (0.3-1.0) 06/08/18 04:45 AST 24 U/L (13-39) 06/08/18 04:45 ALT 57 U/L (7-52) H 06/08/18 04:45 Alkaline Phosphatase 62 U/L (34-104) 06/08/18 04:45 Troponin I < 0.01 ng/mL (0.01-0.05) L 05/30/18 10:13 Total Protein 5.2 gm/dL (6.0-8.3) L 06/08/18 04:45 Albumin 2.4 gm/dL (4.2-5.5) L 06/08/18 04:45 Globulin 2.8 gm/dL 06/08/18 04:45 Albumin/Globulin Ratio 0.9 (1.0-1.8) L 06/08/18 04:45 Urine Source CLEAN C 06/07/18 00:45 Urine Color YELLOW 06/07/18 00:45 Urine Clarity CLEAR (CLEAR) 06/07/18 00:45 Urine pH 7.0 (4.6 - 8.0) 06/07/18 00:45 Ur Specific [place] 1.015 (1.005-1.030) 06/07/18 00:45 Urine Protein NEGATIVE mg/dL (NEGATIVE) 06/07/18 00:45 Urine Glucose (UA) NEGATIVE mg/dL (NEGATIVE) 06/07/18 00:45 Urine Ketones NEGATIVE mg/dL (NEGATIVE) 06/07/18 00:45 Urine Blood NEGATIVE (NEGATIVE) 06/07/18 00:45 Urine Nitrate NEGATIVE (NEGATIVE) 06/07/18 00:45 Urine Bilirubin NEGATIVE (NEGATIVE) 06/07/18 00:45 Urine Urobilinogen 0.2 E.U./dL (0.2 - 1.0) 06/07/18 00:45 Ur Leukocyte Esterase NEGATIVE (NEGATIVE) 06/07/18 00:45 Urine WBC 0-2 /hpf (0-5) 06/07/18 00:45 Ur Epithelial Cells OCCASIONAL /lpf (FEW) 06/07/18 00:45 Urine Bacteria OCCASIONAL /hpf (NONE SEEN) 06/07/18 00:45 Urine Mucus FEW /lpf (FEW) 06/07/18 00:45 Fluid Glucose 106.0 mg/dL 06/05/18 10:45 Fluid Total Protein 3.3 g/dL 06/05/18 10:45 Fluid LDH 579 U/L 06/05/18 10:45 Vancomycin Trough 16.1 ug/mL (5-10) H 06/06/18 09:00 Hepatitis A IgM Ab Negative (Negative) 06/10/18 04:05 Hep Bs Antigen Negative (Negative) 06/10/18 04:05 Hep B Core IgM Ab Negative (Negative) 06/10/18 04:05 Hepatitis C Antibody <0.1 s/co ratio (0.0-0.9) 06/10/18 04:05 HIV 1&2 Antibody Screen NEGATIVE (NEG) 06/07/18 04:15 - Physical Exam Vitals and I&O: Vital Signs Temp 99.7 F 06/11/18 16:00 Pulse 88 06/11/18 19:35 Resp 14 06/11/18 19:35 BP 140/79 06/11/18 18:00 Pulse Ox 95 06/11/18 19:35 Intake & Output 06/11/18 06/11/18 06/12/18 06:59 18:59 06:59 Intake Total 375 1300 Output Total 600 Balance -225 1300 Weight (lbs) 83.915 kg 82.508 kg Intake: Intake, IV Amount 50 cefTRIAXone 1 gm In 50 Sodium Chloride 0.9% 50 ml @ 100 mls/hr IV Q24HR [facility] Rx#:[id number] Oral 375 1250 Output: Urine 600 Other: # Voids 4 # Bowel Movements 0 0 Weight Source Bedscale Bedscale Active Medications: Current Medications Acetaminophen (Tylenol Extra Strength) 500 mg PO Q6HR PRN PRN Reason: FEVER Stop: 07/29/18 17:21 Last Admin: 06/09/18 21:05 Dose: 500 mg Albuterol/Ipratropium (Duoneb Neb) 3 ml HHN Q6HRT ANANDA Stop: 07/31/18 18:59 Last Admin: 06/11/18 19:35 Dose: 3 ml Betamethasone/Clotrimazole (Lotrisone Cream) 1 appl TP BID ANANDA Stop: 06/12/18 16:59 Last Admin: 06/11/18 16:52 Dose: 1 appl Diphenhydramine HCl (Benadryl) 25 mg PO Q6HR PRN PRN Reason: Itching Stop: 08/06/18 17:21 Last Admin: 06/09/18 21:05 Dose: 25 mg Enoxaparin Sodium (Lovenox) 80 mg SUBQ Q12H ANANDA Stop: 08/10/18 08:59 Last Admin: 06/11/18 08:48 Dose: 80 mg Ceftriaxone Sodium 1 gm/ (Sodium Chloride) 50 mls @ 100 mls/hr IV Q24HR ANANDA Stop: 07/29/18 15:43 Last Infusion: 06/11/18 16:00 Dose: Infused Ibuprofen (Motrin) 800 mg PO TID PRN PRN Reason: MILD TO MOD. PAIN Stop: 07/29/18 17:16 Last Admin: 06/08/18 12:24 Dose: 800 mg Isoniazid (Inh) 300 mg PO DAILY ANANDA Stop: 08/10/18 08:59 Last Admin: 06/11/18 08:49 Dose: 300 mg Lactobacillus Rhamnosus (Culturelle 15b) 1 each PO DAILY ANANDA Stop: 08/04/18 08:59 Last Admin: 06/11/18 08:48 Dose: 1 each Levofloxacin (Levaquin) 500 mg PO DAILY@1300 ANANDA Stop: 08/10/18 12:59 Last Admin: 06/11/18 12:24 Dose: 500 mg Lorazepam (Ativan) 1 mg PO Q6HR PRN; Protocol PRN Reason: Sleeplessness Stop: 08/09/18 16:49 Last Admin: 06/10/18 20:24 Dose: 1 mg Miscellaneous (Probiotic Screen) 1 ea PRN PRN PRN Reason: PROTOCOL Stop: 08/03/18 09:44 Miscellaneous (Lovenox Subq Per Pharmacy) 1 ea PRN ANANDA; Protocol Stop: 08/09/18 16:59 Morphine Sulfate (Morphine) 2 mg IV Q4HR PRN PRN Reason: Severe Pain Stop: 07/29/18 17:14 Last Admin: 06/11/18 20:09 Dose: 2 mg Ondansetron HCl (Zofran) 4 mg IV Q6H PRN PRN Reason: NAUSEA Stop: 07/29/18 17:29 Rifampin (Rifadin) 600 mg PO DAILY@1700 ANANDA Stop: 08/10/18 16:59 Last Admin: 06/11/18 16:50 Dose: 600 mg Zolpidem Tartrate (Ambien) 10 mg PO HS PRN PRN Reason: Insomnia Stop: 08/10/18 14:43 General: Alert Cardiovascular: Regular rate Lungs: Other (rales better) Abdomen: Soft Extremities: no Edema Skin: Rash (on the chest wall area) - Procedures Procedures: Procedures Procedure Code Date DRAINAGE OF RIGHT PLEURAL CAVITY, PERC APPROACH, DIAGN [id number] 05/30/18 Assessment/Plan - Assessment Assessment: Bilateral PE pneumonia Hemorrhagic pleural effusion s/p thoracentesis Right UE DVT Dermatitis Positive AFB Insomnia - Plan Plan: Ambein prescribed Follow up on MTB PCR Case discussed with ID Ativan prn Follow sputum AFB Continue iv antibiotics TB treatment per ID Benadryl prn Patient was updated on plan of care Nutritional Asmnt/Malnutr-PDOC - Dietary Evaluation Malnutrition Findings (Please click <Entered> for more info): Nutritional Asmnt/Malnutrition Start: 06/03/18 11: 57 Text: Status: Complete Freq: Protocol: Document 06/03/18 12:44 ELEONORA (Rec: 06/03/18 12:48 ELEONORA NORRIS-FN) Nutritional Asmnt/Malnutrition Patient General Information Nutritional Screening Moderate Risk Pertinent Medical Hx/Surgical Hx no sig medical hx, appendectomy, smokes about 15 cigarettes a day Subjective Information Pt seen lying in bed at time of visit, stating appetite so so. Pt consumed few breakfast today, has no food preference to give. Per EMR, PO intake 25 -50%. Per nurse, pt has DVT to right arm. Current Diet Order/ Nutrition Support regular Pertinent Medications vancomycin Pertinent Labs 05/30 Na 134, glucose 145, Ca 8. 4 Nutritional Hx/Data Height 1.83 m Height (Calculated Centimeters) 182.9 Current Weight (lbs) 87.09 kg Weight (Calculated Kilograms) 87.1 Weight (Calculated Grams) 67933.7 [place] Body Weight 178 Body Mass Index (BMI) 26.0 Weight Status Overweight GI Symptoms GI Symptoms None Last BM not indicated Difficult in: None Skin Integrity/Comment: intact Current %PO Poor (25-49%) Estimated Nutritional Goals BEE in Kcals: Using Current wt Calories/Kcals/Kg 25-30 based IBW 81kg Kcals Calculated 7388-3669 Protein: Using Current wt Protein g/k Protein Calculated 81 Fluid: ml 2024-243ml (1ml/kcal) Nutritional Problem 1. Problem Problem inadequate food intake Etiology decreased appetite Signs/Symptoms: PO intake 25-30% Malnutrition Alert Is there a minimum of two criteria No selected? Query Text:Check all the applicable criteria. A minimum of two criteria are recommended for diagnosis of either severe or non-severe malnutrition. Malnutrition Related to Morbid Obesity Malnutrition related to morbid obesity No Intervention/Recommendation Comments 1. Continue with current diet as ordered. Encouraged oral intake. 2. Monitor PO intake, wt, labs and skin integrity 3. F/U as moderate risk in 3-5 days, 06/06-06/08, PO check Expected Outcomes/Goals Expected Outcomes/Goals 1. PO intake to meet at least 75% of nutritional needs. 2. Wt stability, skin to remain intact, labs to approach WNL.
[2018-06-12] MEDS: Albuterol/Ipratropium Neb 3 ML AERS HHN SCH ×4 (01:21→19:24)
[2018-06-12 04:55] LABS: % BASOPHILS 0.8 % (0.0-2.0); % EOSINOPHILS 7.6 % (0.0-5.0); % LYMPHOCYTES 23.2 % (20.0-50.0); % MONOCYTES 8.7 % (2.0-10.0); % NEUTROPHILS 59.7 % (40.0-80.0); EOSINOPHILE ABSOLUTE 0.4 Th/cmm (0.1-0.4); HEMATOCRIT 35.7 % (41.0-60); HEMOGLOBIN 11.7 gm/dL (12-16); LYMPHOCYTE ABSOLUTE 1.3 Th/cmm (1.5-3.0); MEAN CELL VOLUME 89.2 fl (80-99); MEAN CORPUSCULAR HEMOGLOBIN 29.3 pg (26.0-30.0); MEAN CORPUSCULAR HGB CONC 32.9 pg (28.0-36.0); MEAN PLATELET VOLUME 6.7 fl; MONOCYTE ABSOLUTE 0.5 Th/cmm (0.3-1.0); NEUTROPHILE ABSOLUTE 3.3 Th/cmm (1.8-8.0); PLATELET COUNT 484 Th/cmm (150-400); RED CELL DISTRIBUTION WIDTH 13.2 % (11.5-20.0); WHITE BLOOD COUNT 5.5 Th/cmm (4.8-10.8)
[2018-06-12 05:10] LABS: ALB/GLOB RATIO 0.8 (1.0-1.8); ALBUMIN 2.7 gm/dL (4.2-5.5); ALKALINE PHOSPHATASE 79 U/L (34-104); BILIRUBIN,TOTAL 0.3 mg/dL (0.3-1.0); BUN - UREA NITROGEN 8 mg/dL (7-25); CALCIUM SERUM 8.4 mg/dL (8.6-10.3); CARBON DIOXIDE 26.3 mEq/L (21.0-31.0); CREATININE - SERUM 0.8 mg/dL (0.7-1.3); GFR AFRICAN-AMERICAN > 60.0 ml/min (>90); GFR NON AFRICAN-AMERICAN > 60.0 ml/min; GLUCOSE 100 mg/dL (70-105); SGOT 56 U/L (13-39); SGPT/ALT 74 U/L (7-52)
[2018-06-12 06:27] LABS: ANION GAP 13.8 (7.0-16.0); CHLORIDE 100 mEq/L (98-107); POTASSIUM SERUM 4.1 mEq/L (3.5-5.1); SODIUM SERUM 136 mEq/L (136-145)
[2018-06-12] MEDS: Lactobacillus Rhamnosus GG 15 Billion CFU CAP.SPRINK PO SCH (08:45)
[2018-06-12] MEDS: Enoxaparin 80 mg/0.8 mL 0.8mL Syr SUBQ SCH (08:45)
[2018-06-12] MEDS: Betamethasone/Clotrimazole Cream 15 gm Tube TP SCH (08:46)
--- NOTE | 2018-06-12 09:35 | General Progress Note ---
Subjective - Review of Systems Service Date: 06/11/18 Subjective: no chest pain Objective - Results Result Diagrams: 06/12/18 04:40 06/12/18 04:40 Recent Labs: Laboratory Last Values WBC 5.5 Th/cmm (4.8-10.8) 06/12/18 04:40 RBC 4.00 Mil/cmm (4.30-5.70) L 06/12/18 04:40 Hgb 11.7 gm/dL (12-16) L 06/12/18 04:40 Hct 35.7 % (41.0-60) L 06/12/18 04:40 MCV 89.2 fl (80-99) 06/12/18 04:40 MCH 29.3 pg (26.0-30.0) 06/12/18 04:40 MCHC Differential 32.9 pg (28.0-36.0) 06/12/18 04:40 RDW 13.2 % (11.5-20.0) 06/12/18 04:40 Plt Count 484 Th/cmm (150-400) H 06/12/18 04:40 MPV 6.7 fl 06/12/18 04:40 Add Manual Diff YES 06/06/18 04:20 Neutrophils % 59.7 % (40.0-80.0) 06/12/18 04:40 Band Neutrophils % 1 % (0-10) 06/06/18 04:20 Lymphocytes % 23.2 % (20.0-50.0) 06/12/18 04:40 Monocytes % 8.7 % (2.0-10.0) 06/12/18 04:40 Eosinophils % 7.6 % (0.0-5.0) H 06/12/18 04:40 Basophils % 0.8 % (0.0-2.0) 06/12/18 04:40 Neutrophils (Manual) 72 % (40-80) 06/06/18 04:20 Lymphocytes 20 % (20-50) 06/06/18 04:20 Monocytes 3 % (2-10) 06/06/18 04:20 Eosinophils 4 % (0-5) 06/06/18 04:20 Basophils 0 % (0-3) 06/05/18 08:00 Atypical Lymphocytes 5 % 06/06/18 04:20 Platelet Estimate ADEQUATE (NORMAL) 06/06/18 04:20 PT 10.8 SECONDS (9.5-11.5) 06/05/18 08:00 INR 1.04 (0.5-1.4) 06/05/18 08:00 PTT (Actin FS) 28.2 SECONDS (26.0-38.0) 06/05/18 08:00 D-Dimer 1240 ng/mL (100-400) H 05/30/18 10:00 Sodium 136 mEq/L (136-145) 06/12/18 04:40 Potassium 4.1 mEq/L (3.5-5.1) 06/12/18 04:40 Chloride 100 mEq/L (98-107) 06/12/18 04:40 Carbon Dioxide 26.3 mEq/L (21.0-31.0) 06/12/18 04:40 Anion Gap 13.8 (7.0-16.0) 06/12/18 04:40 BUN 8 mg/dL (7-25) 06/12/18 04:40 Creatinine 0.8 mg/dL (0.7-1.3) 06/12/18 04:40 Est GFR ( Amer) > 60.0 ml/min (>90) 06/12/18 04:40 Est GFR (Non-Af Amer) > 60.0 ml/min 06/12/18 04:40 BUN/Creatinine Ratio 10.0 06/12/18 04:40 Glucose 100 mg/dL (70-105) 06/12/18 04:40 POC Glucose 100 MG/DL (70 - 105) 05/30/18 16:22 Whole Bld Lactic Acid 0.88 mmol/L (0.60-1.99) 06/07/18 00:10 Calcium 8.4 mg/dL (8.6-10.3) L 06/12/18 04:40 Total Bilirubin 0.3 mg/dL (0.3-1.0) 06/12/18 04:40 AST 56 U/L (13-39) H 06/12/18 04:40 ALT 74 U/L (7-52) H 06/12/18 04:40 Alkaline Phosphatase 79 U/L (34-104) 06/12/18 04:40 Troponin I < 0.01 ng/mL (0.01-0.05) L 05/30/18 10:13 Total Protein 6.0 gm/dL (6.0-8.3) 06/12/18 04:40 Albumin 2.7 gm/dL (4.2-5.5) L 06/12/18 04:40 Globulin 3.3 gm/dL 06/12/18 04:40 Albumin/Globulin Ratio 0.8 (1.0-1.8) L 06/12/18 04:40 Urine Source CLEAN C 06/07/18 00:45 Urine Color YELLOW 06/07/18 00:45 Urine Clarity CLEAR (CLEAR) 06/07/18 00:45 Urine pH 7.0 (4.6 - 8.0) 06/07/18 00:45 Ur Specific [place] 1.015 (1.005-1.030) 06/07/18 00:45 Urine Protein NEGATIVE mg/dL (NEGATIVE) 06/07/18 00:45 Urine Glucose (UA) NEGATIVE mg/dL (NEGATIVE) 06/07/18 00:45 Urine Ketones NEGATIVE mg/dL (NEGATIVE) 06/07/18 00:45 Urine Blood NEGATIVE (NEGATIVE) 06/07/18 00:45 Urine Nitrate NEGATIVE (NEGATIVE) 06/07/18 00:45 Urine Bilirubin NEGATIVE (NEGATIVE) 06/07/18 00:45 Urine Urobilinogen 0.2 E.U./dL (0.2 - 1.0) 06/07/18 00:45 Ur Leukocyte Esterase NEGATIVE (NEGATIVE) 06/07/18 00:45 Urine WBC 0-2 /hpf (0-5) 06/07/18 00:45 Ur Epithelial Cells OCCASIONAL /lpf (FEW) 06/07/18 00:45 Urine Bacteria OCCASIONAL /hpf (NONE SEEN) 06/07/18 00:45 Urine Mucus FEW /lpf (FEW) 06/07/18 00:45 Fluid Glucose 106.0 mg/dL 06/05/18 10:45 Fluid Total Protein 3.3 g/dL 06/05/18 10:45 Fluid LDH 579 U/L 06/05/18 10:45 Vancomycin Trough 16.1 ug/mL (5-10) H 06/06/18 09:00 Hepatitis A IgM Ab Negative (Negative) 06/10/18 04:05 Hep Bs Antigen Negative (Negative) 06/10/18 04:05 Hep B Core IgM Ab Negative (Negative) 06/10/18 04:05 Hepatitis C Antibody <0.1 s/co ratio (0.0-0.9) 06/10/18 04:05 HIV 1&2 Antibody Screen NEGATIVE (NEG) 06/07/18 04:15 - Physical Exam Vitals and I&O: Vital Signs Temp 99.0 F 06/12/18 06:00 Pulse 89 06/12/18 07:22 Resp 20 06/12/18 07:22 BP 129/70 06/12/18 06:00 Pulse Ox 96 06/12/18 07:22 Intake & Output 06/11/18 06/12/18 06/12/18 18:59 06:59 18:59 Intake Total 1300 310 Output Total 1050 Balance 1300 -740 Weight (lbs) 82.508 kg 82.191 kg Intake: Intake, IV Amount 50 cefTRIAXone 1 gm In 50 Sodium Chloride 0.9% 50 ml @ 100 mls/hr IV Q24HR COUNT INCLUDES THE [facility] Rx#:[id number] Oral 1250 Other 310 Output: Urine 1050 Other: # Voids 4 # Bowel Movements 0 0 Weight Source Bedscale Bedscale Active Medications: Current Medications Acetaminophen (Tylenol Extra Strength) 500 mg PO Q6HR PRN PRN Reason: FEVER Stop: 07/29/18 17:21 Last Admin: 06/09/18 21:05 Dose: 500 mg Albuterol/Ipratropium (Duoneb Neb) 3 ml HHN Q6HRT COUNT INCLUDES THE [facility] Stop: 07/31/18 18:59 Last Admin: 06/12/18 07:22 Dose: 3 ml Betamethasone/Clotrimazole (Lotrisone Cream) 1 appl TP BID COUNT INCLUDES THE [facility] Stop: 06/12/18 16:59 Last Admin: 06/12/18 08:46 Dose: 1 appl Diphenhydramine HCl (Benadryl) 25 mg PO Q6HR PRN PRN Reason: Itching Stop: 08/06/18 17:21 Last Admin: 06/09/18 21:05 Dose: 25 mg Enoxaparin Sodium (Lovenox) 80 mg SUBQ Q12H COUNT INCLUDES THE [facility] Stop: 08/10/18 08:59 Last Admin: 06/12/18 08:45 Dose: 80 mg Ceftriaxone Sodium 1 gm/ (Sodium Chloride) 50 mls @ 100 mls/hr IV Q24HR ANANDA Stop: 07/29/18 15:43 Last Infusion: 06/11/18 16:00 Dose: Infused Ibuprofen (Motrin) 800 mg PO TID PRN PRN Reason: MILD TO MOD. PAIN Stop: 07/29/18 17:16 Last Admin: 06/08/18 12:24 Dose: 800 mg Isoniazid (Inh) 300 mg PO DAILY ANANDA Stop: 08/10/18 08:59 Last Admin: 06/12/18 08:45 Dose: 300 mg Lactobacillus Rhamnosus (Culturelle 15b) 1 each PO DAILY ANANDA Stop: 08/04/18 08:59 Last Admin: 06/11/18 08:48 Dose: 1 each Levofloxacin (Levaquin) 500 mg PO DAILY@1300 ANANDA Stop: 08/10/18 12:59 Last Admin: 06/11/18 12:24 Dose: 500 mg Lorazepam (Ativan) 1 mg PO Q6HR PRN; Protocol PRN Reason: Sleeplessness Stop: 08/09/18 16:49 Last Admin: 06/11/18 21:51 Dose: 1 mg Miscellaneous (Probiotic Screen) 1 ea PRN PRN PRN Reason: PROTOCOL Stop: 08/03/18 09:44 Miscellaneous (Lovenox Subq Per Pharmacy) 1 ea PRN ANANDA; Protocol Stop: 08/09/18 16:59 Morphine Sulfate (Morphine) 2 mg IV Q4HR PRN PRN Reason: Severe Pain Stop: 07/29/18 17:14 Last Admin: 06/11/18 20:09 Dose: 2 mg Ondansetron HCl (Zofran) 4 mg IV Q6H PRN PRN Reason: NAUSEA Stop: 07/29/18 17:29 Rifampin (Rifadin) 600 mg PO DAILY@1700 COUNT INCLUDES THE [facility] Stop: 08/10/18 16:59 Last Admin: 06/11/18 16:50 Dose: 600 mg Zolpidem Tartrate (Ambien) 10 mg PO HS PRN PRN Reason: Insomnia Stop: 08/10/18 14:43 General: Alert HEENT: Atraumatic Neck: Supple Cardiovascular: Regular rate Lungs: Other (rales better) Abdomen: Soft Extremities: no Edema Skin: Rash (on the chest wall area) - Procedures Procedures: Procedures Procedure Code Date DRAINAGE OF RIGHT PLEURAL CAVITY, PERC APPROACH, DIAGN [id number] 05/30/18 Assessment/Plan - Assessment Assessment: * right lung consolidation and effusion * multiple bilateral pulmonary emboli * right upper ext thrombosis Continue eliquis and antibiotics and follow imaging for resolution; Continue iv antibiotics. bronchoscopy/biopsy if no resolution hgb stable. Continues to be on AFB isolation. Now on xarelto. CXR stable Nutritional Asmnt/Malnutr-PDOC - Dietary Evaluation Malnutrition Findings (Please click <Entered> for more info): Nutritional Asmnt/Malnutrition Start: 06/03/18 11: 57 Text: Status: Complete Freq: Protocol: Document 06/03/18 12:44 [email or web address] (Rec: 06/03/18 12:48 LCLANA NORRIS-FN) Nutritional Asmnt/Malnutrition Patient General Information Nutritional Screening Moderate Risk Pertinent Medical Hx/Surgical Hx no sig medical hx, appendectomy, smokes about 15 cigarettes a day Subjective Information Pt seen lying in bed at time of visit, stating appetite so so. Pt consumed few breakfast today, has no food preference to give. Per EMR, PO intake 25 -50%. Per nurse, pt has DVT to right arm. Current Diet Order/ Nutrition Support regular Pertinent Medications vancomycin Pertinent Labs 05/30 Na 134, glucose 145, Ca 8. 4 Nutritional Hx/Data Height 1.83 m Height (Calculated Centimeters) 182.9 Current Weight (lbs) 87.09 kg Weight (Calculated Kilograms) 87.1 Weight (Calculated Grams) 58943.7 [place] Body Weight 178 Body Mass Index (BMI) 26.0 Weight Status Overweight GI Symptoms GI Symptoms None Last BM not indicated Difficult in: None Skin Integrity/Comment: intact Current %PO Poor (25-49%) Estimated Nutritional Goals BEE in Kcals: Using Current wt Calories/Kcals/Kg 25-30 based IBW 81kg Kcals Calculated 3876-9857 Protein: Using Current wt Protein g/k Protein Calculated 81 Fluid: ml 2024-243ml (1ml/kcal) Nutritional Problem 1. Problem Problem inadequate food intake Etiology decreased appetite Signs/Symptoms: PO intake 25-30% Malnutrition Alert Is there a minimum of two criteria No selected? Query Text:Check all the applicable criteria. A minimum of two criteria are recommended for diagnosis of either severe or non-severe malnutrition. Malnutrition Related to Morbid Obesity Malnutrition related to morbid obesity No Intervention/Recommendation Comments 1. Continue with current diet as ordered. Encouraged oral intake. 2. Monitor PO intake, wt, labs and skin integrity 3. F/U as moderate risk in 3-5 days, 06/06-06/08, PO check Expected Outcomes/Goals Expected Outcomes/Goals 1. PO intake to meet at least 75% of nutritional needs. 2. Wt stability, skin to remain intact, labs to approach WNL.
--- NOTE | 2018-06-12 09:42 | General Progress Note ---
Subjective - Review of Systems Service Date: 06/12/18 Subjective: no chest pain Objective - Results Result Diagrams: 06/12/18 04:40 06/12/18 04:40 Recent Labs: Laboratory Last Values WBC 5.5 Th/cmm (4.8-10.8) 06/12/18 04:40 RBC 4.00 Mil/cmm (4.30-5.70) L 06/12/18 04:40 Hgb 11.7 gm/dL (12-16) L 06/12/18 04:40 Hct 35.7 % (41.0-60) L 06/12/18 04:40 MCV 89.2 fl (80-99) 06/12/18 04:40 MCH 29.3 pg (26.0-30.0) 06/12/18 04:40 MCHC Differential 32.9 pg (28.0-36.0) 06/12/18 04:40 RDW 13.2 % (11.5-20.0) 06/12/18 04:40 Plt Count 484 Th/cmm (150-400) H 06/12/18 04:40 MPV 6.7 fl 06/12/18 04:40 Add Manual Diff YES 06/06/18 04:20 Neutrophils % 59.7 % (40.0-80.0) 06/12/18 04:40 Band Neutrophils % 1 % (0-10) 06/06/18 04:20 Lymphocytes % 23.2 % (20.0-50.0) 06/12/18 04:40 Monocytes % 8.7 % (2.0-10.0) 06/12/18 04:40 Eosinophils % 7.6 % (0.0-5.0) H 06/12/18 04:40 Basophils % 0.8 % (0.0-2.0) 06/12/18 04:40 Neutrophils (Manual) 72 % (40-80) 06/06/18 04:20 Lymphocytes 20 % (20-50) 06/06/18 04:20 Monocytes 3 % (2-10) 06/06/18 04:20 Eosinophils 4 % (0-5) 06/06/18 04:20 Basophils 0 % (0-3) 06/05/18 08:00 Atypical Lymphocytes 5 % 06/06/18 04:20 Platelet Estimate ADEQUATE (NORMAL) 06/06/18 04:20 PT 10.8 SECONDS (9.5-11.5) 06/05/18 08:00 INR 1.04 (0.5-1.4) 06/05/18 08:00 PTT (Actin FS) 28.2 SECONDS (26.0-38.0) 06/05/18 08:00 D-Dimer 1240 ng/mL (100-400) H 05/30/18 10:00 Sodium 136 mEq/L (136-145) 06/12/18 04:40 Potassium 4.1 mEq/L (3.5-5.1) 06/12/18 04:40 Chloride 100 mEq/L (98-107) 06/12/18 04:40 Carbon Dioxide 26.3 mEq/L (21.0-31.0) 06/12/18 04:40 Anion Gap 13.8 (7.0-16.0) 06/12/18 04:40 BUN 8 mg/dL (7-25) 06/12/18 04:40 Creatinine 0.8 mg/dL (0.7-1.3) 06/12/18 04:40 Est GFR ( Amer) > 60.0 ml/min (>90) 06/12/18 04:40 Est GFR (Non-Af Amer) > 60.0 ml/min 06/12/18 04:40 BUN/Creatinine Ratio 10.0 06/12/18 04:40 Glucose 100 mg/dL (70-105) 06/12/18 04:40 POC Glucose 100 MG/DL (70 - 105) 05/30/18 16:22 Whole Bld Lactic Acid 0.88 mmol/L (0.60-1.99) 06/07/18 00:10 Calcium 8.4 mg/dL (8.6-10.3) L 06/12/18 04:40 Total Bilirubin 0.3 mg/dL (0.3-1.0) 06/12/18 04:40 AST 56 U/L (13-39) H 06/12/18 04:40 ALT 74 U/L (7-52) H 06/12/18 04:40 Alkaline Phosphatase 79 U/L (34-104) 06/12/18 04:40 Troponin I < 0.01 ng/mL (0.01-0.05) L 05/30/18 10:13 Total Protein 6.0 gm/dL (6.0-8.3) 06/12/18 04:40 Albumin 2.7 gm/dL (4.2-5.5) L 06/12/18 04:40 Globulin 3.3 gm/dL 06/12/18 04:40 Albumin/Globulin Ratio 0.8 (1.0-1.8) L 06/12/18 04:40 Urine Source CLEAN C 06/07/18 00:45 Urine Color YELLOW 06/07/18 00:45 Urine Clarity CLEAR (CLEAR) 06/07/18 00:45 Urine pH 7.0 (4.6 - 8.0) 06/07/18 00:45 Ur Specific [place] 1.015 (1.005-1.030) 06/07/18 00:45 Urine Protein NEGATIVE mg/dL (NEGATIVE) 06/07/18 00:45 Urine Glucose (UA) NEGATIVE mg/dL (NEGATIVE) 06/07/18 00:45 Urine Ketones NEGATIVE mg/dL (NEGATIVE) 06/07/18 00:45 Urine Blood NEGATIVE (NEGATIVE) 06/07/18 00:45 Urine Nitrate NEGATIVE (NEGATIVE) 06/07/18 00:45 Urine Bilirubin NEGATIVE (NEGATIVE) 06/07/18 00:45 Urine Urobilinogen 0.2 E.U./dL (0.2 - 1.0) 06/07/18 00:45 Ur Leukocyte Esterase NEGATIVE (NEGATIVE) 06/07/18 00:45 Urine WBC 0-2 /hpf (0-5) 06/07/18 00:45 Ur Epithelial Cells OCCASIONAL /lpf (FEW) 06/07/18 00:45 Urine Bacteria OCCASIONAL /hpf (NONE SEEN) 06/07/18 00:45 Urine Mucus FEW /lpf (FEW) 06/07/18 00:45 Fluid Glucose 106.0 mg/dL 06/05/18 10:45 Fluid Total Protein 3.3 g/dL 06/05/18 10:45 Fluid LDH 579 U/L 06/05/18 10:45 Vancomycin Trough 16.1 ug/mL (5-10) H 06/06/18 09:00 Hepatitis A IgM Ab Negative (Negative) 06/10/18 04:05 Hep Bs Antigen Negative (Negative) 06/10/18 04:05 Hep B Core IgM Ab Negative (Negative) 06/10/18 04:05 Hepatitis C Antibody <0.1 s/co ratio (0.0-0.9) 06/10/18 04:05 HIV 1&2 Antibody Screen NEGATIVE (NEG) 06/07/18 04:15 - Physical Exam Vitals and I&O: Vital Signs Temp 99.0 F 06/12/18 06:00 Pulse 89 06/12/18 07:22 Resp 20 06/12/18 07:22 BP 129/70 06/12/18 06:00 Pulse Ox 96 06/12/18 07:22 Intake & Output 06/11/18 06/12/18 06/12/18 18:59 06:59 18:59 Intake Total 1300 310 Output Total 1050 Balance 1300 -740 Weight (lbs) 82.508 kg 82.191 kg Intake: Intake, IV Amount 50 cefTRIAXone 1 gm In 50 Sodium Chloride 0.9% 50 ml @ 100 mls/hr IV Q24HR [facility] Rx#:[id number] Oral 1250 Other 310 Output: Urine 1050 Other: # Voids 4 # Bowel Movements 0 0 Weight Source Bedscale Bedscale Active Medications: Current Medications Acetaminophen (Tylenol Extra Strength) 500 mg PO Q6HR PRN PRN Reason: FEVER Stop: 07/29/18 17:21 Last Admin: 06/09/18 21:05 Dose: 500 mg Albuterol/Ipratropium (Duoneb Neb) 3 ml HHN Q6HRT [facility] Stop: 07/31/18 18:59 Last Admin: 06/12/18 07:22 Dose: 3 ml Betamethasone/Clotrimazole (Lotrisone Cream) 1 appl TP BID [facility] Stop: 06/12/18 16:59 Last Admin: 06/12/18 08:46 Dose: 1 appl Diphenhydramine HCl (Benadryl) 25 mg PO Q6HR PRN PRN Reason: Itching Stop: 08/06/18 17:21 Last Admin: 06/09/18 21:05 Dose: 25 mg Enoxaparin Sodium (Lovenox) 80 mg SUBQ Q12H [facility] Stop: 08/10/18 08:59 Last Admin: 06/12/18 08:45 Dose: 80 mg Ceftriaxone Sodium 1 gm/ (Sodium Chloride) 50 mls @ 100 mls/hr IV Q24HR [facility] Stop: 07/29/18 15:43 Last Infusion: 06/11/18 16:00 Dose: Infused Ibuprofen (Motrin) 800 mg PO TID PRN PRN Reason: MILD TO MOD. PAIN Stop: 07/29/18 17:16 Last Admin: 06/08/18 12:24 Dose: 800 mg Isoniazid (Inh) 300 mg PO DAILY [facility] Stop: 08/10/18 08:59 Last Admin: 06/12/18 08:45 Dose: 300 mg Lactobacillus Rhamnosus (Culturelle 15b) 1 each PO DAILY [facility] Stop: 08/04/18 08:59 Last Admin: 06/11/18 08:48 Dose: 1 each Levofloxacin (Levaquin) 500 mg PO DAILY@1300 [facility] Stop: 08/10/18 12:59 Last Admin: 06/11/18 12:24 Dose: 500 mg Lorazepam (Ativan) 1 mg PO Q6HR PRN; Protocol PRN Reason: Sleeplessness Stop: 08/09/18 16:49 Last Admin: 06/11/18 21:51 Dose: 1 mg Miscellaneous (Probiotic Screen) 1 ea PRN PRN PRN Reason: PROTOCOL Stop: 08/03/18 09:44 Miscellaneous (Lovenox Subq Per Pharmacy) 1 ea PRN [facility]; Protocol Stop: 08/09/18 16:59 Morphine Sulfate (Morphine) 2 mg IV Q4HR PRN PRN Reason: Severe Pain Stop: 07/29/18 17:14 Last Admin: 06/11/18 20:09 Dose: 2 mg Ondansetron HCl (Zofran) 4 mg IV Q6H PRN PRN Reason: NAUSEA Stop: 07/29/18 17:29 Rifampin (Rifadin) 600 mg PO DAILY@1700 [facility] Stop: 08/10/18 16:59 Last Admin: 06/11/18 16:50 Dose: 600 mg Zolpidem Tartrate (Ambien) 10 mg PO HS PRN PRN Reason: Insomnia Stop: 08/10/18 14:43 General: Alert HEENT: Atraumatic Neck: Supple Cardiovascular: Regular rate Lungs: Other (rales better) Abdomen: Soft Extremities: no Edema Skin: Rash (on the chest wall area) - Procedures Procedures: Procedures Procedure Code Date DRAINAGE OF RIGHT PLEURAL CAVITY, PERC APPROACH, DIAGN [id number] 05/30/18 Assessment/Plan - Assessment Assessment: * right lung consolidation and effusion * multiple bilateral pulmonary emboli * right upper ext thrombosis Continue eliquis and antibiotics and follow imaging for resolution; Continue iv antibiotics. bronchoscopy/biopsy if no resolution hgb stable. Continues to be on AFB isolation. back on lovenox. CXR stable Nutritional Asmnt/Malnutr-PDOC - Dietary Evaluation Malnutrition Findings (Please click <Entered> for more info): Nutritional Asmnt/Malnutrition Start: 06/03/18 11: 57 Text: Status: Complete Freq: Protocol: Document 06/03/18 12:44 LCHARJITG (Rec: 06/03/18 12:48 LCLANA NORRIS-FN) Nutritional Asmnt/Malnutrition Patient General Information Nutritional Screening Moderate Risk Pertinent Medical Hx/Surgical Hx no sig medical hx, appendectomy, smokes about 15 cigarettes a day Subjective Information Pt seen lying in bed at time of visit, stating appetite so so. Pt consumed few breakfast today, has no food preference to give. Per EMR, PO intake 25 -50%. Per nurse, pt has DVT to right arm. Current Diet Order/ Nutrition Support regular Pertinent Medications vancomycin Pertinent Labs 05/30 Na 134, glucose 145, Ca 8. 4 Nutritional Hx/Data Height 1.83 m Height (Calculated Centimeters) 182.9 Current Weight (lbs) 87.09 kg Weight (Calculated Kilograms) 87.1 Weight (Calculated Grams) 85342.7 [place] Body Weight 178 Body Mass Index (BMI) 26.0 Weight Status Overweight GI Symptoms GI Symptoms None Last BM not indicated Difficult in: None Skin Integrity/Comment: intact Current %PO Poor (25-49%) Estimated Nutritional Goals BEE in Kcals: Using Current wt Calories/Kcals/Kg 25-30 based IBW 81kg Kcals Calculated 2828-4715 Protein: Using Current wt Protein g/k Protein Calculated 81 Fluid: ml 2024-243ml (1ml/kcal) Nutritional Problem 1. Problem Problem inadequate food intake Etiology decreased appetite Signs/Symptoms: PO intake 25-30% Malnutrition Alert Is there a minimum of two criteria No selected? Query Text:Check all the applicable criteria. A minimum of two criteria are recommended for diagnosis of either severe or non-severe malnutrition. Malnutrition Related to Morbid Obesity Malnutrition related to morbid obesity No Intervention/Recommendation Comments 1. Continue with current diet as ordered. Encouraged oral intake. 2. Monitor PO intake, wt, labs and skin integrity 3. F/U as moderate risk in 3-5 days, 06/06-06/08, PO check Expected Outcomes/Goals Expected Outcomes/Goals 1. PO intake to meet at least 75% of nutritional needs. 2. Wt stability, skin to remain intact, labs to approach WNL.
[2018-06-12] MEDS: cefTRIAXone 1 GM in Sodium Chloride 0.9% 50 ML IV SCH (15:18)
[2018-06-12] MEDS: Rifampin 300 mg Cap PO SCH (17:08)
[2018-06-12] MEDS ORDERED: Enoxaparin 80 mg/0.8 mL 0.8mL Syr SUBQ SCH (18:01)
[2018-06-12] MEDS ORDERED: Enoxaparin 80 mg/0.8 mL 0.8mL Syr SUBQ ONE (21:00)
--- NOTE | 2018-06-12 21:19 | General Progress Note ---
Subjective - Review of Systems Service Date: 06/12/18 Subjective: Patient seen and examined no new complaints reported Objective - Results Result Diagrams: 06/12/18 04:40 06/12/18 04:40 Recent Labs: Laboratory Last Values WBC 5.5 Th/cmm (4.8-10.8) 06/12/18 04:40 RBC 4.00 Mil/cmm (4.30-5.70) L 06/12/18 04:40 Hgb 11.7 gm/dL (12-16) L 06/12/18 04:40 Hct 35.7 % (41.0-60) L 06/12/18 04:40 MCV 89.2 fl (80-99) 06/12/18 04:40 MCH 29.3 pg (26.0-30.0) 06/12/18 04:40 MCHC Differential 32.9 pg (28.0-36.0) 06/12/18 04:40 RDW 13.2 % (11.5-20.0) 06/12/18 04:40 Plt Count 484 Th/cmm (150-400) H 06/12/18 04:40 MPV 6.7 fl 06/12/18 04:40 Add Manual Diff YES 06/06/18 04:20 Neutrophils % 59.7 % (40.0-80.0) 06/12/18 04:40 Band Neutrophils % 1 % (0-10) 06/06/18 04:20 Lymphocytes % 23.2 % (20.0-50.0) 06/12/18 04:40 Monocytes % 8.7 % (2.0-10.0) 06/12/18 04:40 Eosinophils % 7.6 % (0.0-5.0) H 06/12/18 04:40 Basophils % 0.8 % (0.0-2.0) 06/12/18 04:40 Neutrophils (Manual) 72 % (40-80) 06/06/18 04:20 Lymphocytes 20 % (20-50) 06/06/18 04:20 Monocytes 3 % (2-10) 06/06/18 04:20 Eosinophils 4 % (0-5) 06/06/18 04:20 Basophils 0 % (0-3) 06/05/18 08:00 Atypical Lymphocytes 5 % 06/06/18 04:20 Platelet Estimate ADEQUATE (NORMAL) 06/06/18 04:20 PT 10.8 SECONDS (9.5-11.5) 06/05/18 08:00 INR 1.04 (0.5-1.4) 06/05/18 08:00 PTT (Actin FS) 28.2 SECONDS (26.0-38.0) 06/05/18 08:00 D-Dimer 1240 ng/mL (100-400) H 05/30/18 10:00 Sodium 136 mEq/L (136-145) 06/12/18 04:40 Potassium 4.1 mEq/L (3.5-5.1) 06/12/18 04:40 Chloride 100 mEq/L (98-107) 06/12/18 04:40 Carbon Dioxide 26.3 mEq/L (21.0-31.0) 06/12/18 04:40 Anion Gap 13.8 (7.0-16.0) 06/12/18 04:40 BUN 8 mg/dL (7-25) 06/12/18 04:40 Creatinine 0.8 mg/dL (0.7-1.3) 06/12/18 04:40 Est GFR ( Amer) > 60.0 ml/min (>90) 06/12/18 04:40 Est GFR (Non-Af Amer) > 60.0 ml/min 06/12/18 04:40 BUN/Creatinine Ratio 10.0 06/12/18 04:40 Glucose 100 mg/dL (70-105) 06/12/18 04:40 POC Glucose 100 MG/DL (70 - 105) 05/30/18 16:22 Whole Bld Lactic Acid 0.88 mmol/L (0.60-1.99) 06/07/18 00:10 Calcium 8.4 mg/dL (8.6-10.3) L 06/12/18 04:40 Total Bilirubin 0.3 mg/dL (0.3-1.0) 06/12/18 04:40 AST 56 U/L (13-39) H 06/12/18 04:40 ALT 74 U/L (7-52) H 06/12/18 04:40 Alkaline Phosphatase 79 U/L (34-104) 06/12/18 04:40 Troponin I < 0.01 ng/mL (0.01-0.05) L 05/30/18 10:13 Total Protein 6.0 gm/dL (6.0-8.3) 06/12/18 04:40 Albumin 2.7 gm/dL (4.2-5.5) L 06/12/18 04:40 Globulin 3.3 gm/dL 06/12/18 04:40 Albumin/Globulin Ratio 0.8 (1.0-1.8) L 06/12/18 04:40 Urine Source CLEAN C 06/07/18 00:45 Urine Color YELLOW 06/07/18 00:45 Urine Clarity CLEAR (CLEAR) 06/07/18 00:45 Urine pH 7.0 (4.6 - 8.0) 06/07/18 00:45 Ur Specific [place] 1.015 (1.005-1.030) 06/07/18 00:45 Urine Protein NEGATIVE mg/dL (NEGATIVE) 06/07/18 00:45 Urine Glucose (UA) NEGATIVE mg/dL (NEGATIVE) 06/07/18 00:45 Urine Ketones NEGATIVE mg/dL (NEGATIVE) 06/07/18 00:45 Urine Blood NEGATIVE (NEGATIVE) 06/07/18 00:45 Urine Nitrate NEGATIVE (NEGATIVE) 06/07/18 00:45 Urine Bilirubin NEGATIVE (NEGATIVE) 06/07/18 00:45 Urine Urobilinogen 0.2 E.U./dL (0.2 - 1.0) 06/07/18 00:45 Ur Leukocyte Esterase NEGATIVE (NEGATIVE) 06/07/18 00:45 Urine WBC 0-2 /hpf (0-5) 06/07/18 00:45 Ur Epithelial Cells OCCASIONAL /lpf (FEW) 18 00:45 Urine Bacteria OCCASIONAL /hpf (NONE SEEN) 06/07/18 00:45 Urine Mucus FEW /lpf (FEW) 06/07/18 00:45 Fluid Glucose 106.0 mg/dL 06/05/18 10:45 Fluid Total Protein 3.3 g/dL 06/05/18 10:45 Fluid LDH 579 U/L 06/05/18 10:45 Vancomycin Trough 16.1 ug/mL (5-10) H 06/06/18 09:00 Hepatitis A IgM Ab Negative (Negative) 06/10/18 04:05 Hep Bs Antigen Negative (Negative) 06/10/18 04:05 Hep B Core IgM Ab Negative (Negative) 06/10/18 04:05 Hepatitis C Antibody <0.1 s/co ratio (0.0-0.9) 06/10/18 04:05 HIV 1&2 Antibody Screen NEGATIVE (NEG) 06/07/18 04:15 - Physical Exam Vitals and I&O: Vital Signs Temp 98 F 06/12/18 20:00 Pulse 93 06/12/18 20:00 Resp 25 06/12/18 20:00 BP 122/65 06/12/18 20:00 Pulse Ox 93 06/12/18 20:00 Intake & Output 06/12/18 06/12/18 06/13/18 06:59 18:59 06:59 Intake Total 272 74 0878 Output Total 1050 950 Balance -740 50 350 Weight (lbs) 82.191 kg 82.191 kg Intake: Intake, IV Amount 50 cefTRIAXone 1 gm In 50 Sodium Chloride 0.9% 50 ml @ 100 mls/hr IV Q24HR [facility] Rx#:[id number] Oral 1300 Other 310 Output: Urine 1050 950 Other: # Bowel Movements 0 0 Weight Source Bedscale Bedscale Active Medications: Current Medications Acetaminophen (Tylenol Extra Strength) 500 mg PO Q6HR PRN PRN Reason: FEVER Stop: 07/29/18 17:21 Last Admin: 06/09/18 21:05 Dose: 500 mg Albuterol/Ipratropium (Duoneb Neb) 3 ml HHN Q6HRT [facility] Stop: 07/31/18 18:59 Last Admin: 06/12/18 19:24 Dose: 3 ml Diphenhydramine HCl (Benadryl) 25 mg PO Q6HR PRN PRN Reason: Itching Stop: 08/06/18 17:21 Last Admin: 06/09/18 21:05 Dose: 25 mg Ceftriaxone Sodium 1 gm/ (Sodium Chloride) 50 mls @ 100 mls/hr IV Q24HR [facility] Stop: 07/29/18 15:43 Last Infusion: 06/12/18 16:00 Dose: Infused Ibuprofen (Motrin) 800 mg PO TID PRN PRN Reason: MILD TO MOD. PAIN Stop: 07/29/18 17:16 Last Admin: 06/08/18 12:24 Dose: 800 mg Isoniazid (Inh) 300 mg PO DAILY [facility] Stop: 08/10/18 08:59 Last Admin: 06/12/18 08:45 Dose: 300 mg Lactobacillus Rhamnosus (Culturelle 15b) 1 each PO DAILY [facility] Stop: 08/04/18 08:59 Last Admin: 06/12/18 08:45 Dose: 1 each Levofloxacin (Levaquin) 500 mg PO DAILY@1300 [facility] Stop: 08/10/18 12:59 Last Admin: 06/12/18 13:05 Dose: 500 mg Lorazepam (Ativan) 1 mg PO Q6HR PRN; Protocol PRN Reason: Sleeplessness Stop: 08/09/18 16:49 Last Admin: 06/11/18 21:51 Dose: 1 mg Miscellaneous (Probiotic Screen) 1 ea [facility] PRN PRN PRN Reason: PROTOCOL Stop: 08/03/18 09:44 Miscellaneous (Lovenox Subq Per Pharmacy) 1 ea PRN [facility]; Protocol Stop: 08/09/18 16:59 Morphine Sulfate (Morphine) 2 mg IV Q4HR PRN PRN Reason: Severe Pain Stop: 07/29/18 17:14 Last Admin: 06/11/18 20:09 Dose: 2 mg Ondansetron HCl (Zofran) 4 mg IV Q6H PRN PRN Reason: NAUSEA Stop: 07/29/18 17:29 Rifampin (Rifadin) 600 mg PO DAILY@1700 [facility] Stop: 08/10/18 16:59 Last Admin: 06/12/18 17:08 Dose: 600 mg Zolpidem Tartrate (Ambien) 10 mg PO HS PRN PRN Reason: Insomnia Stop: 08/10/18 14:43 General: Alert Cardiovascular: Regular rate Lungs: Other (rales better) Extremities: no Edema Skin: Rash (on the chest wall area) - Procedures Procedures: Procedures Procedure Code Date DRAINAGE OF RIGHT PLEURAL CAVITY, PERC APPROACH, DIAGN [id number] 05/30/18 Assessment/Plan - Assessment Assessment: Bilateral PE pneumonia Hemorrhagic pleural effusion s/p thoracentesis Right UE DVT Dermatitis Positive AFB Insomnia - Plan Plan: MTB PCR test result came back negative I discussed the result with ID and retail beauty specialist who still recomended to continue TB medications until the final sputum result comes back . Continue iv antibiotics TB treatment per ID Bronchoscopy plan per orthopedic cast specialist Patient was updated on plan of care Nutritional Asmnt/Malnutr-PDOC - Dietary Evaluation Malnutrition Findings (Please click <Entered> for more info): Nutritional Asmnt/Malnutrition Start: 06/03/18 11: 57 Text: Status: Complete Freq: Protocol: Document 06/03/18 12:44 LCHARJITG (Rec: 06/03/18 12:48 LCHARJITG [email or web address]) Nutritional Asmnt/Malnutrition Patient General Information Nutritional Screening Moderate Risk Pertinent Medical Hx/Surgical Hx no sig medical hx, appendectomy, smokes about 15 cigarettes a day Subjective Information Pt seen lying in bed at time of visit, stating appetite so so. Pt consumed few breakfast today, has no food preference to give. Per EMR, PO intake 25 -50%. Per nurse, pt has DVT to right arm. Current Diet Order/ Nutrition Support regular Pertinent Medications vancomycin Pertinent Labs 05/30 Na 134, glucose 145, Ca 8. 4 Nutritional Hx/Data Height 1.83 m Height (Calculated Centimeters) 182.9 Current Weight (lbs) 87.09 kg Weight (Calculated Kilograms) 87.1 Weight (Calculated Grams) 04097.7 [place] Body Weight 178 Body Mass Index (BMI) 26.0 Weight Status Overweight GI Symptoms GI Symptoms None Last BM not indicated Difficult in: None Skin Integrity/Comment: intact Current %PO Poor (25-49%) Estimated Nutritional Goals BEE in Kcals: Using Current wt Calories/Kcals/Kg 25-30 based IBW 81kg Kcals Calculated 4478-9444 Protein: Using Current wt Protein g/k Protein Calculated 81 Fluid: ml 2024-2430ml (1ml/kcal) Nutritional Problem 1. Problem Problem inadequate food intake Etiology decreased appetite Signs/Symptoms: PO intake 25-30% Malnutrition Alert Is there a minimum of two criteria No selected? Query Text:Check all the applicable criteria. A minimum of two criteria are recommended for diagnosis of either severe or non-severe malnutrition. Malnutrition Related to Morbid Obesity Malnutrition related to morbid obesity No Intervention/Recommendation Comments 1. Continue with current diet as ordered. Encouraged oral intake. 2. Monitor PO intake, wt, labs and skin integrity 3. F/U as moderate risk in 3-5 days, 06/06-06/08, PO check Expected Outcomes/Goals Expected Outcomes/Goals 1. PO intake to meet at least 75% of nutritional needs. 2. Wt stability, skin to remain intact, labs to approach WNL.
[2018-06-13] MEDS: Albuterol/Ipratropium Neb 3 ML AERS HHN SCH ×4 (01:02→19:04)
[2018-06-13] MEDS: Lactobacillus Rhamnosus GG 15 Billion CFU CAP.SPRINK PO SCH (08:41)
--- NOTE | 2018-06-13 09:36 | General Progress Note ---
Subjective - Review of Systems Service Date: 06/13/18 Subjective: no chest pain Objective - Results Result Diagrams: 06/12/18 04:40 06/12/18 04:40 Recent Labs: Laboratory Last Values WBC 5.5 Th/cmm (4.8-10.8) 06/12/18 04:40 RBC 4.00 Mil/cmm (4.30-5.70) L 06/12/18 04:40 Hgb 11.7 gm/dL (12-16) L 06/12/18 04:40 Hct 35.7 % (41.0-60) L 06/12/18 04:40 MCV 89.2 fl (80-99) 06/12/18 04:40 MCH 29.3 pg (26.0-30.0) 06/12/18 04:40 MCHC Differential 32.9 pg (28.0-36.0) 06/12/18 04:40 RDW 13.2 % (11.5-20.0) 06/12/18 04:40 Plt Count 484 Th/cmm (150-400) H 06/12/18 04:40 MPV 6.7 fl 06/12/18 04:40 Add Manual Diff YES 06/06/18 04:20 Neutrophils % 59.7 % (40.0-80.0) 06/12/18 04:40 Band Neutrophils % 1 % (0-10) 06/06/18 04:20 Lymphocytes % 23.2 % (20.0-50.0) 06/12/18 04:40 Monocytes % 8.7 % (2.0-10.0) 06/12/18 04:40 Eosinophils % 7.6 % (0.0-5.0) H 06/12/18 04:40 Basophils % 0.8 % (0.0-2.0) 06/12/18 04:40 Neutrophils (Manual) 72 % (40-80) 06/06/18 04:20 Lymphocytes 20 % (20-50) 06/06/18 04:20 Monocytes 3 % (2-10) 06/06/18 04:20 Eosinophils 4 % (0-5) 06/06/18 04:20 Basophils 0 % (0-3) 06/05/18 08:00 Atypical Lymphocytes 5 % 06/06/18 04:20 Platelet Estimate ADEQUATE (NORMAL) 06/06/18 04:20 PT 10.8 SECONDS (9.5-11.5) 06/05/18 08:00 INR 1.04 (0.5-1.4) 06/05/18 08:00 PTT (Actin FS) 28.2 SECONDS (26.0-38.0) 06/05/18 08:00 D-Dimer 1240 ng/mL (100-400) H 05/30/18 10:00 Sodium 136 mEq/L (136-145) 06/12/18 04:40 Potassium 4.1 mEq/L (3.5-5.1) 06/12/18 04:40 Chloride 100 mEq/L (98-107) 06/12/18 04:40 Carbon Dioxide 26.3 mEq/L (21.0-31.0) 06/12/18 04:40 Anion Gap 13.8 (7.0-16.0) 06/12/18 04:40 BUN 8 mg/dL (7-25) 06/12/18 04:40 Creatinine 0.8 mg/dL (0.7-1.3) 06/12/18 04:40 Est GFR ( Amer) > 60.0 ml/min (>90) 06/12/18 04:40 Est GFR (Non-Af Amer) > 60.0 ml/min 06/12/18 04:40 BUN/Creatinine Ratio 10.0 06/12/18 04:40 Glucose 100 mg/dL (70-105) 06/12/18 04:40 POC Glucose 100 MG/DL (70 - 105) 05/30/18 16:22 Whole Bld Lactic Acid 0.88 mmol/L (0.60-1.99) 06/07/18 00:10 Calcium 8.4 mg/dL (8.6-10.3) L 06/12/18 04:40 Total Bilirubin 0.3 mg/dL (0.3-1.0) 06/12/18 04:40 AST 56 U/L (13-39) H 06/12/18 04:40 ALT 74 U/L (7-52) H 06/12/18 04:40 Alkaline Phosphatase 79 U/L (34-104) 06/12/18 04:40 Troponin I < 0.01 ng/mL (0.01-0.05) L 05/30/18 10:13 Total Protein 6.0 gm/dL (6.0-8.3) 06/12/18 04:40 Albumin 2.7 gm/dL (4.2-5.5) L 06/12/18 04:40 Globulin 3.3 gm/dL 06/12/18 04:40 Albumin/Globulin Ratio 0.8 (1.0-1.8) L 06/12/18 04:40 Urine Source CLEAN C 06/07/18 00:45 Urine Color YELLOW 06/07/18 00:45 Urine Clarity CLEAR (CLEAR) 06/07/18 00:45 Urine pH 7.0 (4.6 - 8.0) 06/07/18 00:45 Ur Specific [place] 1.015 (1.005-1.030) 06/07/18 00:45 Urine Protein NEGATIVE mg/dL (NEGATIVE) 06/07/18 00:45 Urine Glucose (UA) NEGATIVE mg/dL (NEGATIVE) 06/07/18 00:45 Urine Ketones NEGATIVE mg/dL (NEGATIVE) 06/07/18 00:45 Urine Blood NEGATIVE (NEGATIVE) 06/07/18 00:45 Urine Nitrate NEGATIVE (NEGATIVE) 06/07/18 00:45 Urine Bilirubin NEGATIVE (NEGATIVE) 06/07/18 00:45 Urine Urobilinogen 0.2 E.U./dL (0.2 - 1.0) 06/07/18 00:45 Ur Leukocyte Esterase NEGATIVE (NEGATIVE) 06/07/18 00:45 Urine WBC 0-2 /hpf (0-5) 06/07/18 00:45 Ur Epithelial Cells OCCASIONAL /lpf (FEW) 06/07/18 00:45 Urine Bacteria OCCASIONAL /hpf (NONE SEEN) 06/07/18 00:45 Urine Mucus FEW /lpf (FEW) 06/07/18 00:45 Fluid Glucose 106.0 mg/dL 06/05/18 10:45 Fluid Total Protein 3.3 g/dL 06/05/18 10:45 Fluid LDH 579 U/L 06/05/18 10:45 Vancomycin Trough 16.1 ug/mL (5-10) H 06/06/18 09:00 Hepatitis A IgM Ab Negative (Negative) 06/10/18 04:05 Hep Bs Antigen Negative (Negative) 06/10/18 04:05 Hep B Core IgM Ab Negative (Negative) 06/10/18 04:05 Hepatitis C Antibody <0.1 s/co ratio (0.0-0.9) 06/10/18 04:05 HIV 1&2 Antibody Screen NEGATIVE (NEG) 06/07/18 04:15 - Physical Exam Vitals and I&O: Vital Signs Temp 98.2 F 06/13/18 00:00 Pulse 89 06/13/18 06:42 Resp 18 06/13/18 09:07 BP 113/61 06/13/18 04:00 Pulse Ox 94 06/13/18 06:42 Intake & Output 06/12/18 06/13/18 06/13/18 18:59 06:59 18:59 Intake Total 50 1620 Output Total 1880 Balance 50 -260 Weight (lbs) 82.191 kg Intake: Intake, IV Amount 50 cefTRIAXone 1 gm In 50 Sodium Chloride 0.9% 50 ml @ 100 mls/hr IV Q24HR [facility] Rx#:[id number] Oral 1620 Output: Urine 1880 Other: # Voids 4 # Bowel Movements 0 Weight Source Bedscale Active Medications: Current Medications Acetaminophen (Tylenol Extra Strength) 500 mg PO Q6HR PRN PRN Reason: FEVER Stop: 07/29/18 17:21 Last Admin: 06/09/18 21:05 Dose: 500 mg Albuterol/Ipratropium (Duoneb Neb) 3 ml HHN Q6HRT ANANDA Stop: 07/31/18 18:59 Last Admin: 06/13/18 06:42 Dose: 3 ml Diphenhydramine HCl (Benadryl) 25 mg PO Q6HR PRN PRN Reason: Itching Stop: 08/06/18 17:21 Last Admin: 06/09/18 21:05 Dose: 25 mg Ceftriaxone Sodium 1 gm/ (Sodium Chloride) 50 mls @ 100 mls/hr IV Q24HR ANANDA Stop: 07/29/18 15:43 Last Infusion: 06/12/18 16:00 Dose: Infused Ibuprofen (Motrin) 800 mg PO TID PRN PRN Reason: MILD TO MOD. PAIN Stop: 07/29/18 17:16 Last Admin: 06/08/18 12:24 Dose: 800 mg Isoniazid (Inh) 300 mg PO DAILY ANANDA Stop: 08/10/18 08:59 Last Admin: 06/13/18 08:41 Dose: 300 mg Lactobacillus Rhamnosus (Culturelle 15b) 1 each PO DAILY ANANDA Stop: 08/04/18 08:59 Last Admin: 06/13/18 08:41 Dose: 1 each Levofloxacin (Levaquin) 500 mg PO DAILY@1300 ANANDA Stop: 08/10/18 12:59 Last Admin: 06/12/18 13:05 Dose: 500 mg Lorazepam (Ativan) 1 mg PO Q6HR PRN; Protocol PRN Reason: Sleeplessness Stop: 08/09/18 16:49 Last Admin: 06/12/18 21:23 Dose: 1 mg Miscellaneous (Probiotic Screen) 1 ea PRN PRN PRN Reason: PROTOCOL Stop: 08/03/18 09:44 Miscellaneous (Lovenox Subq Per Pharmacy) 1 ea PRN ANANDA; Protocol Stop: 08/09/18 16:59 Morphine Sulfate (Morphine) 2 mg IV Q4HR PRN PRN Reason: Severe Pain Stop: 07/29/18 17:14 Last Admin: 06/11/18 20:09 Dose: 2 mg Ondansetron HCl (Zofran) 4 mg IV Q6H PRN PRN Reason: NAUSEA Stop: 07/29/18 17:29 Rifampin (Rifadin) 600 mg PO DAILY@1700 [facility] Stop: 08/10/18 16:59 Last Admin: 06/12/18 17:08 Dose: 600 mg Zolpidem Tartrate (Ambien) 10 mg PO HS PRN PRN Reason: Insomnia Stop: 08/10/18 14:43 General: Alert HEENT: Atraumatic Neck: Supple Cardiovascular: Regular rate Lungs: Other (rales better) Abdomen: Soft Extremities: no Edema Skin: Rash (on the chest wall area) - Procedures Procedures: Procedures Procedure Code Date DRAINAGE OF RIGHT PLEURAL CAVITY, PERC APPROACH, DIAGN [id number] 05/30/18 Assessment/Plan - Assessment Assessment: * right lung consolidation and effusion * multiple bilateral pulmonary emboli * right upper ext thrombosis Continue eliquis and antibiotics and follow imaging for resolution; Continue iv antibiotics. bronchoscopy/biopsy if no resolution hgb stable. Continues to be on AFB isolation. back on lovenox. CXR stable hold lovenox for bronchoscopy in am Nutritional Asmnt/Malnutr-PDOC - Dietary Evaluation Malnutrition Findings (Please click <Entered> for more info): Nutritional Asmnt/Malnutrition Start: 06/03/18 11: 57 Text: Status: Complete Freq: Protocol: Document 06/03/18 12:44 [email or web address] (Rec: 06/03/18 12:48 ELEONORA [email or web address]) Nutritional Asmnt/Malnutrition Patient General Information Nutritional Screening Moderate Risk Pertinent Medical Hx/Surgical Hx no sig medical hx, appendectomy, smokes about 15 cigarettes a day Subjective Information Pt seen lying in bed at time of visit, stating appetite so so. Pt consumed few breakfast today, has no food preference to give. Per EMR, PO intake 25 -50%. Per nurse, pt has DVT to right arm. Current Diet Order/ Nutrition Support regular Pertinent Medications vancomycin Pertinent Labs 05/30 Na 134, glucose 145, Ca 8. 4 Nutritional Hx/Data Height 1.83 m Height (Calculated Centimeters) 182.9 Current Weight (lbs) 87.09 kg Weight (Calculated Kilograms) 87.1 Weight (Calculated Grams) 22743.7 [place] Body Weight 178 Body Mass Index (BMI) 26.0 Weight Status Overweight GI Symptoms GI Symptoms None Last BM not indicated Difficult in: None Skin Integrity/Comment: intact Current %PO Poor (25-49%) Estimated Nutritional Goals BEE in Kcals: Using Current wt Calories/Kcals/Kg 25-30 based IBW 81kg Kcals Calculated 6060-8496 Protein: Using Current wt Protein g/k Protein Calculated 81 Fluid: ml 2024-2430ml (1ml/kcal) Nutritional Problem 1. Problem Problem inadequate food intake Etiology decreased appetite Signs/Symptoms: PO intake 25-30% Malnutrition Alert Is there a minimum of two criteria No selected? Query Text:Check all the applicable criteria. A minimum of two criteria are recommended for diagnosis of either severe or non-severe malnutrition. Malnutrition Related to Morbid Obesity Malnutrition related to morbid obesity No Intervention/Recommendation Comments 1. Continue with current diet as ordered. Encouraged oral intake. 2. Monitor PO intake, wt, labs and skin integrity 3. F/U as moderate risk in 3-5 days, 06/06-06/08, PO check Expected Outcomes/Goals Expected Outcomes/Goals 1. PO intake to meet at least 75% of nutritional needs. 2. Wt stability, skin to remain intact, labs to approach WNL.
--- NOTE | 2018-06-13 12:46 | Infectious Disease Prog Note ---
Infectious Disease Subjective - Review of Systems Service Date: 06/13/18 Subjective: no fevers. Infectious Disease Objective - Results Result Diagrams: 06/12/18 04:40 06/12/18 04:40 Recent Labs: Laboratory Last Values WBC 5.5 Th/cmm (4.8-10.8) 06/12/18 04:40 RBC 4.00 Mil/cmm (4.30-5.70) L 06/12/18 04:40 Hgb 11.7 gm/dL (12-16) L 06/12/18 04:40 Hct 35.7 % (41.0-60) L 06/12/18 04:40 MCV 89.2 fl (80-99) 06/12/18 04:40 MCH 29.3 pg (26.0-30.0) 06/12/18 04:40 MCHC Differential 32.9 pg (28.0-36.0) 06/12/18 04:40 RDW 13.2 % (11.5-20.0) 06/12/18 04:40 Plt Count 484 Th/cmm (150-400) H 06/12/18 04:40 MPV 6.7 fl 06/12/18 04:40 Add Manual Diff YES 06/06/18 04:20 Neutrophils % 59.7 % (40.0-80.0) 06/12/18 04:40 Band Neutrophils % 1 % (0-10) 06/06/18 04:20 Lymphocytes % 23.2 % (20.0-50.0) 06/12/18 04:40 Monocytes % 8.7 % (2.0-10.0) 06/12/18 04:40 Eosinophils % 7.6 % (0.0-5.0) H 06/12/18 04:40 Basophils % 0.8 % (0.0-2.0) 06/12/18 04:40 Neutrophils (Manual) 72 % (40-80) 06/06/18 04:20 Lymphocytes 20 % (20-50) 06/06/18 04:20 Monocytes 3 % (2-10) 06/06/18 04:20 Eosinophils 4 % (0-5) 06/06/18 04:20 Basophils 0 % (0-3) 06/05/18 08:00 Atypical Lymphocytes 5 % 06/06/18 04:20 Platelet Estimate ADEQUATE (NORMAL) 06/06/18 04:20 PT 10.8 SECONDS (9.5-11.5) 06/05/18 08:00 INR 1.04 (0.5-1.4) 06/05/18 08:00 PTT (Actin FS) 28.2 SECONDS (26.0-38.0) 06/05/18 08:00 D-Dimer 1240 ng/mL (100-400) H 05/30/18 10:00 Sodium 136 mEq/L (136-145) 06/12/18 04:40 Potassium 4.1 mEq/L (3.5-5.1) 06/12/18 04:40 Chloride 100 mEq/L (98-107) 06/12/18 04:40 Carbon Dioxide 26.3 mEq/L (21.0-31.0) 06/12/18 04:40 Anion Gap 13.8 (7.0-16.0) 06/12/18 04:40 BUN 8 mg/dL (7-25) 06/12/18 04:40 Creatinine 0.8 mg/dL (0.7-1.3) 06/12/18 04:40 Est GFR ( Amer) > 60.0 ml/min (>90) 06/12/18 04:40 Est GFR (Non-Af Amer) > 60.0 ml/min 06/12/18 04:40 BUN/Creatinine Ratio 10.0 06/12/18 04:40 Glucose 100 mg/dL (70-105) 06/12/18 04:40 POC Glucose 100 MG/DL (70 - 105) 05/30/18 16:22 Whole Bld Lactic Acid 0.88 mmol/L (0.60-1.99) 06/07/18 00:10 Calcium 8.4 mg/dL (8.6-10.3) L 06/12/18 04:40 Total Bilirubin 0.3 mg/dL (0.3-1.0) 06/12/18 04:40 AST 56 U/L (13-39) H 06/12/18 04:40 ALT 74 U/L (7-52) H 06/12/18 04:40 Alkaline Phosphatase 79 U/L (34-104) 06/12/18 04:40 Troponin I < 0.01 ng/mL (0.01-0.05) L 05/30/18 10:13 Total Protein 6.0 gm/dL (6.0-8.3) 06/12/18 04:40 Albumin 2.7 gm/dL (4.2-5.5) L 06/12/18 04:40 Globulin 3.3 gm/dL 06/12/18 04:40 Albumin/Globulin Ratio 0.8 (1.0-1.8) L 06/12/18 04:40 Urine Source CLEAN C 06/07/18 00:45 Urine Color YELLOW 06/07/18 00:45 Urine Clarity CLEAR (CLEAR) 06/07/18 00:45 Urine pH 7.0 (4.6 - 8.0) 06/07/18 00:45 Ur Specific [place] 1.015 (1.005-1.030) 06/07/18 00:45 Urine Protein NEGATIVE mg/dL (NEGATIVE) 06/07/18 00:45 Urine Glucose (UA) NEGATIVE mg/dL (NEGATIVE) 06/07/18 00:45 Urine Ketones NEGATIVE mg/dL (NEGATIVE) 06/07/18 00:45 Urine Blood NEGATIVE (NEGATIVE) 06/07/18 00:45 Urine Nitrate NEGATIVE (NEGATIVE) 06/07/18 00:45 Urine Bilirubin NEGATIVE (NEGATIVE) 06/07/18 00:45 Urine Urobilinogen 0.2 E.U./dL (0.2 - 1.0) 06/07/18 00:45 Ur Leukocyte Esterase NEGATIVE (NEGATIVE) 06/07/18 00:45 Urine WBC 0-2 /hpf (0-5) 06/07/18 00:45 Ur Epithelial Cells OCCASIONAL /lpf (FEW) 18 00:45 Urine Bacteria OCCASIONAL /hpf (NONE SEEN) 06/07/18 00:45 Urine Mucus FEW /lpf (FEW) 06/07/18 00:45 Fluid Glucose 106.0 mg/dL 06/05/18 10:45 Fluid Total Protein 3.3 g/dL 06/05/18 10:45 Fluid LDH 579 U/L 06/05/18 10:45 Vancomycin Trough 16.1 ug/mL (5-10) H 06/06/18 09:00 Hepatitis A IgM Ab Negative (Negative) 06/10/18 04:05 Hep Bs Antigen Negative (Negative) 06/10/18 04:05 Hep B Core IgM Ab Negative (Negative) 06/10/18 04:05 Hepatitis C Antibody <0.1 s/co ratio (0.0-0.9) 06/10/18 04:05 HIV 1&2 Antibody Screen NEGATIVE (NEG) 06/07/18 04:15 - Physical Exam Vitals and I&O: Vital Signs Temp 98 F 06/13/18 08:00 Pulse 90 06/13/18 08:00 Resp 18 06/13/18 09:07 BP 111/60 06/13/18 08:00 Pulse Ox 94 06/13/18 08:00 Intake & Output 06/12/18 06/13/18 06/13/18 18:59 06:59 18:59 Intake Total 50 1620 Output Total 1880 Balance 50 -260 Weight (lbs) 82.191 kg Intake: Intake, IV Amount 50 cefTRIAXone 1 gm In 50 Sodium Chloride 0.9% 50 ml @ 100 mls/hr IV Q24HR [facility] Rx#:[id number] Oral 1620 Output: Urine 1880 Other: # Voids 4 # Bowel Movements 0 Weight Source Bedscale Active Medications: Current Medications Acetaminophen (Tylenol Extra Strength) 500 mg PO Q6HR PRN PRN Reason: FEVER Stop: 07/29/18 17:21 Last Admin: 06/09/18 21:05 Dose: 500 mg Albuterol/Ipratropium (Duoneb Neb) 3 ml HHN Q6HRT ANANDA Stop: 07/31/18 18:59 Last Admin: 06/13/18 06:42 Dose: 3 ml Diphenhydramine HCl (Benadryl) 25 mg PO Q6HR PRN PRN Reason: Itching Stop: 08/06/18 17:21 Last Admin: 06/09/18 21:05 Dose: 25 mg Ceftriaxone Sodium 1 gm/ (Sodium Chloride) 50 mls @ 100 mls/hr IV Q24HR ANANDA Stop: 07/29/18 15:43 Last Infusion: 06/12/18 16:00 Dose: Infused Ibuprofen (Motrin) 800 mg PO TID PRN PRN Reason: MILD TO MOD. PAIN Stop: 07/29/18 17:16 Last Admin: 06/08/18 12:24 Dose: 800 mg Isoniazid (Inh) 300 mg PO DAILY ANANDA Stop: 08/10/18 08:59 Last Admin: 06/13/18 08:41 Dose: 300 mg Lactobacillus Rhamnosus (Culturelle 15b) 1 each PO DAILY [facility] Stop: 08/04/18 08:59 Last Admin: 06/13/18 08:41 Dose: 1 each Levofloxacin (Levaquin) 500 mg PO DAILY@1300 [facility] Stop: 08/10/18 12:59 Last Admin: 06/12/18 13:05 Dose: 500 mg Lorazepam (Ativan) 1 mg PO Q6HR PRN; Protocol PRN Reason: Sleeplessness Stop: 08/09/18 16:49 Last Admin: 06/12/18 21:23 Dose: 1 mg Miscellaneous (Probiotic Screen) 1 ea PRN PRN PRN Reason: PROTOCOL Stop: 08/03/18 09:44 Miscellaneous (Lovenox Subq Per Pharmacy) 1 ea PRN ANANDA; Protocol Stop: 08/09/18 16:59 Morphine Sulfate (Morphine) 2 mg IV Q4HR PRN PRN Reason: Severe Pain Stop: 07/29/18 17:14 Last Admin: 06/11/18 20:09 Dose: 2 mg Ondansetron HCl (Zofran) 4 mg IV Q6H PRN PRN Reason: NAUSEA Stop: 07/29/18 17:29 Rifampin (Rifadin) 600 mg PO DAILY@1700 [facility] Stop: 08/10/18 16:59 Last Admin: 06/12/18 17:08 Dose: 600 mg Zolpidem Tartrate (Ambien) 10 mg PO HS PRN PRN Reason: Insomnia Stop: 08/10/18 14:43 General: no acute distress, well developed, well nourished HEENT: atraumatic, normocephalic, PERRLA Neck: supple, no thyromegaly Cardiovascular: S1S2, regular Lungs: clear to auscultation bilaterally, clear to percussion Abdomen: soft, no tender Extremities: no cyanosis, no clubbing, no edema Neurological: awake, alert, oriented Skin: intact - Procedures Procedures: Procedures Procedure Code Date DRAINAGE OF RIGHT PLEURAL CAVITY, PERC APPROACH, DIAGN [id number] 05/30/18 Infectious Disease Assmt/Plan - Assessment Assessment: 1. Pneumonmia. 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 2. PE. 3. DVT. 4. Hemorrhagic pleural effusion. 5. Rash. Resolved. - Plan Plan: Continue rocephin and levaquin. start INH and RIf with. and monitor. wait for final ID of the AFB/Mycobacteria ( 05/21/2018). I was informed by lab that the report will be out in this sunday or Sunday. airborne isolation. Nutritional Asmnt/Malnutr-PDOC - Dietary Evaluation Malnutrition Findings (Please click <Entered> for more info): Nutritional Asmnt/Malnutrition Start: 06/03/18 11: 57 Text: Status: Complete Freq: Protocol: Document 06/03/18 12:44 ELEONORA (Rec: 06/03/18 12:48 ELEONORA [email or web address]) Nutritional Asmnt/Malnutrition Patient General Information Nutritional Screening Moderate Risk Pertinent Medical Hx/Surgical Hx no sig medical hx, appendectomy, smokes about 15 cigarettes a day Subjective Information Pt seen lying in bed at time of visit, stating appetite so so. Pt consumed few breakfast today, has no food preference to give. Per EMR, PO intake 25 -50%. Per nurse, pt has DVT to right arm. Current Diet Order/ Nutrition Support regular Pertinent Medications vancomycin Pertinent Labs 05/30 Na 134, glucose 145, Ca 8. 4 Nutritional Hx/Data Height 1.83 m Height (Calculated Centimeters) 182.9 Current Weight (lbs) 87.09 kg Weight (Calculated Kilograms) 87.1 Weight (Calculated Grams) 79531.7 [place] Body Weight 178 Body Mass Index (BMI) 26.0 Weight Status Overweight GI Symptoms GI Symptoms None Last BM not indicated Difficult in: None Skin Integrity/Comment: intact Current %PO Poor (25-49%) Estimated Nutritional Goals BEE in Kcals: Using Current wt Calories/Kcals/Kg 25-30 based IBW 81kg Kcals Calculated 8343-2877 Protein: Using Current wt Protein g/k Protein Calculated 81 Fluid: ml 2024-243ml (1ml/kcal) Nutritional Problem 1. Problem Problem inadequate food intake Etiology decreased appetite Signs/Symptoms: PO intake 25-30% Malnutrition Alert Is there a minimum of two criteria No selected? Query Text:Check all the applicable criteria. A minimum of two criteria are recommended for diagnosis of either severe or non-severe malnutrition. Malnutrition Related to Morbid Obesity Malnutrition related to morbid obesity No Intervention/Recommendation Comments 1. Continue with current diet as ordered. Encouraged oral intake. 2. Monitor PO intake, wt, labs and skin integrity 3. F/U as moderate risk in 3-5 days, 06/06-06/08, PO check Expected Outcomes/Goals Expected Outcomes/Goals 1. PO intake to meet at least 75% of nutritional needs. 2. Wt stability, skin to remain intact, labs to approach WNL.
[2018-06-13] MEDS: cefTRIAXone 1 GM in Sodium Chloride 0.9% 50 ML IV SCH (15:25)
[2018-06-13] MEDS: Rifampin 300 mg Cap PO SCH (17:19)
--- NOTE | 2018-06-13 20:37 | General Progress Note ---
Subjective - Review of Systems Service Date: 06/13/18 Subjective: Patient seen and examined scheduled for bronchoscopy tomorrow Objective - Results Result Diagrams: 06/12/18 04:40 06/12/18 04:40 Recent Labs: Laboratory Last Values WBC 5.5 Th/cmm (4.8-10.8) 06/12/18 04:40 RBC 4.00 Mil/cmm (4.30-5.70) L 06/12/18 04:40 Hgb 11.7 gm/dL (12-16) L 06/12/18 04:40 Hct 35.7 % (41.0-60) L 06/12/18 04:40 MCV 89.2 fl (80-99) 06/12/18 04:40 MCH 29.3 pg (26.0-30.0) 06/12/18 04:40 MCHC Differential 32.9 pg (28.0-36.0) 06/12/18 04:40 RDW 13.2 % (11.5-20.0) 06/12/18 04:40 Plt Count 484 Th/cmm (150-400) H 06/12/18 04:40 MPV 6.7 fl 06/12/18 04:40 Add Manual Diff YES 06/06/18 04:20 Neutrophils % 59.7 % (40.0-80.0) 06/12/18 04:40 Band Neutrophils % 1 % (0-10) 06/06/18 04:20 Lymphocytes % 23.2 % (20.0-50.0) 06/12/18 04:40 Monocytes % 8.7 % (2.0-10.0) 06/12/18 04:40 Eosinophils % 7.6 % (0.0-5.0) H 06/12/18 04:40 Basophils % 0.8 % (0.0-2.0) 06/12/18 04:40 Neutrophils (Manual) 72 % (40-80) 06/06/18 04:20 Lymphocytes 20 % (20-50) 06/06/18 04:20 Monocytes 3 % (2-10) 06/06/18 04:20 Eosinophils 4 % (0-5) 06/06/18 04:20 Basophils 0 % (0-3) 06/05/18 08:00 Atypical Lymphocytes 5 % 06/06/18 04:20 Platelet Estimate ADEQUATE (NORMAL) 06/06/18 04:20 PT 10.8 SECONDS (9.5-11.5) 06/05/18 08:00 INR 1.04 (0.5-1.4) 06/05/18 08:00 PTT (Actin FS) 28.2 SECONDS (26.0-38.0) 06/05/18 08:00 D-Dimer 1240 ng/mL (100-400) H 05/30/18 10:00 Sodium 136 mEq/L (136-145) 06/12/18 04:40 Potassium 4.1 mEq/L (3.5-5.1) 06/12/18 04:40 Chloride 100 mEq/L (98-107) 06/12/18 04:40 Carbon Dioxide 26.3 mEq/L (21.0-31.0) 06/12/18 04:40 Anion Gap 13.8 (7.0-16.0) 06/12/18 04:40 BUN 8 mg/dL (7-25) 06/12/18 04:40 Creatinine 0.8 mg/dL (0.7-1.3) 06/12/18 04:40 Est GFR ( Amer) > 60.0 ml/min (>90) 06/12/18 04:40 Est GFR (Non-Af Amer) > 60.0 ml/min 06/12/18 04:40 BUN/Creatinine Ratio 10.0 06/12/18 04:40 Glucose 100 mg/dL (70-105) 06/12/18 04:40 POC Glucose 100 MG/DL (70 - 105) 05/30/18 16:22 Whole Bld Lactic Acid 0.88 mmol/L (0.60-1.99) 06/07/18 00:10 Calcium 8.4 mg/dL (8.6-10.3) L 06/12/18 04:40 Total Bilirubin 0.3 mg/dL (0.3-1.0) 06/12/18 04:40 AST 56 U/L (13-39) H 06/12/18 04:40 ALT 74 U/L (7-52) H 06/12/18 04:40 Alkaline Phosphatase 79 U/L (34-104) 06/12/18 04:40 Troponin I < 0.01 ng/mL (0.01-0.05) L 05/30/18 10:13 Total Protein 6.0 gm/dL (6.0-8.3) 06/12/18 04:40 Albumin 2.7 gm/dL (4.2-5.5) L 06/12/18 04:40 Globulin 3.3 gm/dL 06/12/18 04:40 Albumin/Globulin Ratio 0.8 (1.0-1.8) L 06/12/18 04:40 Urine Source CLEAN C 06/07/18 00:45 Urine Color YELLOW 06/07/18 00:45 Urine Clarity CLEAR (CLEAR) 06/07/18 00:45 Urine pH 7.0 (4.6 - 8.0) 06/07/18 00:45 Ur Specific [place] 1.015 (1.005-1.030) 06/07/18 00:45 Urine Protein NEGATIVE mg/dL (NEGATIVE) 06/07/18 00:45 Urine Glucose (UA) NEGATIVE mg/dL (NEGATIVE) 06/07/18 00:45 Urine Ketones NEGATIVE mg/dL (NEGATIVE) 06/07/18 00:45 Urine Blood NEGATIVE (NEGATIVE) 06/07/18 00:45 Urine Nitrate NEGATIVE (NEGATIVE) 06/07/18 00:45 Urine Bilirubin NEGATIVE (NEGATIVE) 06/07/18 00:45 Urine Urobilinogen 0.2 E.U./dL (0.2 - 1.0) 06/07/18 00:45 Ur Leukocyte Esterase NEGATIVE (NEGATIVE) 06/07/18 00:45 Urine WBC 0-2 /hpf (0-5) 06/07/18 00:45 Ur Epithelial Cells OCCASIONAL /lpf (FEW) 06/07/18 00:45 Urine Bacteria OCCASIONAL /hpf (NONE SEEN) 06/07/18 00:45 Urine Mucus FEW /lpf (FEW) 06/07/18 00:45 Fluid Glucose 106.0 mg/dL 06/05/18 10:45 Fluid Total Protein 3.3 g/dL 06/05/18 10:45 Fluid LDH 579 U/L 06/05/18 10:45 Vancomycin Trough 16.1 ug/mL (5-10) H 06/06/18 09:00 Coccidioides Ab Negative (Neg:<1:2) 06/10/18 04:05 Hepatitis A IgM Ab Negative (Negative) 06/10/18 04:05 Hep Bs Antigen Negative (Negative) 06/10/18 04:05 Hep B Core IgM Ab Negative (Negative) 06/10/18 04:05 Hepatitis C Antibody <0.1 s/co ratio (0.0-0.9) 06/10/18 04:05 HIV 1&2 Antibody Screen NEGATIVE (NEG) 06/07/18 04:15 - Physical Exam Vitals and I&O: Vital Signs Temp 98.1 F 06/13/18 16:00 Pulse 95 06/13/18 19:05 Resp 20 06/13/18 19:05 BP 104/59 06/13/18 16:00 Pulse Ox 96 06/13/18 19:05 Intake & Output 06/13/18 06/13/18 06/14/18 06:59 18:59 06:59 Intake Total 1620 50 Output Total 1880 Balance -260 50 Weight (lbs) 82.191 kg Intake: Intake, IV Amount 50 cefTRIAXone 1 gm In 50 Sodium Chloride 0.9% 50 ml @ 100 mls/hr IV Q24HR [facility] Rx#:[id number] Oral 1620 Output: Urine 1880 Other: # Voids 4 # Bowel Movements 0 Weight Source Bedscale Active Medications: Current Medications Acetaminophen (Tylenol Extra Strength) 500 mg PO Q6HR PRN PRN Reason: FEVER Stop: 07/29/18 17:21 Last Admin: 06/09/18 21:05 Dose: 500 mg Albuterol/Ipratropium (Duoneb Neb) 3 ml HHN Q6HRT ANANDA Stop: 07/31/18 18:59 Last Admin: 06/13/18 19:04 Dose: 3 ml Diphenhydramine HCl (Benadryl) 25 mg PO Q6HR PRN PRN Reason: Itching Stop: 08/06/18 17:21 Last Admin: 06/09/18 21:05 Dose: 25 mg Ceftriaxone Sodium 1 gm/ (Sodium Chloride) 50 mls @ 100 mls/hr IV Q24HR ANANDA Stop: 07/29/18 15:43 Last Infusion: 06/13/18 15:55 Dose: Infused Ibuprofen (Motrin) 800 mg PO TID PRN PRN Reason: MILD TO MOD. PAIN Stop: 07/29/18 17:16 Last Admin: 06/08/18 12:24 Dose: 800 mg Isoniazid (Inh) 300 mg PO DAILY [facility] Stop: 08/10/18 08:59 Last Admin: 06/13/18 08:41 Dose: 300 mg Lactobacillus Rhamnosus (Culturelle 15b) 1 each PO DAILY [facility] Stop: 08/04/18 08:59 Last Admin: 06/13/18 08:41 Dose: 1 each Levofloxacin (Levaquin) 500 mg PO DAILY@1300 [facility] Stop: 08/10/18 12:59 Last Admin: 06/13/18 15:26 Dose: 500 mg Lorazepam (Ativan) 1 mg PO Q6HR PRN; Protocol PRN Reason: Sleeplessness Stop: 08/09/18 16:49 Last Admin: 06/12/18 21:23 Dose: 1 mg Miscellaneous (Probiotic Screen) 1 ea PRN PRN PRN Reason: PROTOCOL Stop: 08/03/18 09:44 Miscellaneous (Lovenox Subq Per Pharmacy) 1 ea PRN [facility]; Protocol Stop: 08/09/18 16:59 Morphine Sulfate (Morphine) 2 mg IV Q4HR PRN PRN Reason: Severe Pain Stop: 07/29/18 17:14 Last Admin: 06/11/18 20:09 Dose: 2 mg Ondansetron HCl (Zofran) 4 mg IV Q6H PRN PRN Reason: NAUSEA Stop: 07/29/18 17:29 Pyridoxine HCl (Vitamin B6) 50 mg PO DAILY [facility] Stop: 08/13/18 08:59 Rifampin (Rifadin) 600 mg PO DAILY@1700 [facility] Stop: 08/10/18 16:59 Last Admin: 06/13/18 17:19 Dose: 600 mg Zolpidem Tartrate (Ambien) 10 mg PO HS PRN PRN Reason: Insomnia Stop: 08/10/18 14:43 Cardiovascular: Regular rate Lungs: Other (rales better) Extremities: no Edema Skin: Rash (on the chest wall area) - Procedures Procedures: Procedures Procedure Code Date DRAINAGE OF RIGHT PLEURAL CAVITY, PERC APPROACH, DIAGN [id number] 05/30/18 Assessment/Plan - Assessment Assessment: Bilateral PE pneumonia Hemorrhagic pleural effusion s/p thoracentesis Right UE DVT Dermatitis Positive AFB Insomnia - Plan Plan: continue TB medications until the final sputum result comes back per ID and Pulmonary recomendations Maintain airborne isolation. Continue iv antibiotics TB treatment per ID Bronchoscopy tomorrow Follow up labs in am Nutritional Asmnt/Malnutr-PDOC - Dietary Evaluation Malnutrition Findings (Please click <Entered> for more info): Nutritional Asmnt/Malnutrition Start: 06/03/18 11: 57 Text: Status: Complete Freq: Protocol: Document 06/03/18 12:44 ELEONORA (Rec: 06/03/18 12:48 ELEONORA [email or web address]) Nutritional Asmnt/Malnutrition Patient General Information Nutritional Screening Moderate Risk Pertinent Medical Hx/Surgical Hx no sig medical hx, appendectomy, smokes about 15 cigarettes a day Subjective Information Pt seen lying in bed at time of visit, stating appetite so so. Pt consumed few breakfast today, has no food preference to give. Per EMR, PO intake 25 -50%. Per nurse, pt has DVT to right arm. Current Diet Order/ Nutrition Support regular Pertinent Medications vancomycin Pertinent Labs 05/30 Na 134, glucose 145, Ca 8. 4 Nutritional Hx/Data Height 1.83 m Height (Calculated Centimeters) 182.9 Current Weight (lbs) 87.09 kg Weight (Calculated Kilograms) 87.1 Weight (Calculated Grams) 24351.7 [place] Body Weight 178 Body Mass Index (BMI) 26.0 Weight Status Overweight GI Symptoms GI Symptoms None Last BM not indicated Difficult in: None Skin Integrity/Comment: intact Current %PO Poor (25-49%) Estimated Nutritional Goals BEE in Kcals: Using Current wt Calories/Kcals/Kg 25-30 based IBW 81kg Kcals Calculated 4598-8825 Protein: Using Current wt Protein g/k Protein Calculated 81 Fluid: ml 2024-2430ml (1ml/kcal) Nutritional Problem 1. Problem Problem inadequate food intake Etiology decreased appetite Signs/Symptoms: PO intake 25-30% Malnutrition Alert Is there a minimum of two criteria No selected? Query Text:Check all the applicable criteria. A minimum of two criteria are recommended for diagnosis of either severe or non-severe malnutrition. Malnutrition Related to Morbid Obesity Malnutrition related to morbid obesity No Intervention/Recommendation Comments 1. Continue with current diet as ordered. Encouraged oral intake. 2. Monitor PO intake, wt, labs and skin integrity 3. F/U as moderate risk in 3-5 days, 06/06-8/18, PO check Expected Outcomes/Goals Expected Outcomes/Goals 1. PO intake to meet at least 75% of nutritional needs. 2. Wt stability, skin to remain intact, labs to approach WNL.
[2018-06-13] MEDS: Acetaminophen 500 MG TAB PO PRN (21:48)
[2018-06-14] MEDS: Albuterol/Ipratropium Neb 3 ML AERS HHN SCH ×4 (00:21→19:58)
[2018-06-14 04:48] LABS: HEMATOCRIT 35.1 % (41.0-60); HEMOGLOBIN 11.7 gm/dL (12-16); MEAN CELL VOLUME 88.9 fl (80-99); MEAN CORPUSCULAR HEMOGLOBIN 29.7 pg (26.0-30.0); MEAN CORPUSCULAR HGB CONC 33.4 pg (28.0-36.0); MEAN PLATELET VOLUME 6.6 fl; PLATELET COUNT 557 Th/cmm (150-400); RED BLOOD COUNT 3.95 Mil/cmm (4.30-5.70); WHITE BLOOD COUNT 5.1 Th/cmm (4.8-10.8)
[2018-06-14 05:19] LABS: ATYPICAL LYMPH 5 %; BAND NEUTROPHILE 1 % (0-10); EOSINOPHIL 3 % (0-5); LYMPHOCYTE 25 % (20-50); MONOCYTE 5 % (2-10); NEUTROPHILS 66 % (40-80)
[2018-06-14 05:20] LABS: PLATELET ESTIMATE INCREASED PLATELETS (NORMAL)
[2018-06-14 05:25] LABS: ALB/GLOB RATIO 0.9 (1.0-1.8); ALBUMIN 2.9 gm/dL (4.2-5.5); ALKALINE PHOSPHATASE 72 U/L (34-104); ANION GAP 11.1 (7.0-16.0); BILIRUBIN,TOTAL 0.3 mg/dL (0.3-1.0); BUN - UREA NITROGEN 10 mg/dL (7-25); CALCIUM SERUM 8.9 mg/dL (8.6-10.3); CARBON DIOXIDE 26.8 mEq/L (21.0-31.0); CHLORIDE 102 mEq/L (98-107); CREATININE - SERUM 0.8 mg/dL (0.7-1.3); GFR AFRICAN-AMERICAN > 60.0 ml/min (>90); GFR NON AFRICAN-AMERICAN > 60.0 ml/min; GLUCOSE 111 mg/dL (70-105); POTASSIUM SERUM 3.9 mEq/L (3.5-5.1); SGOT 24 U/L (13-39); SGPT/ALT 41 U/L (7-52); SODIUM SERUM 136 mEq/L (136-145); TOTAL PROTEIN,SERUM 6.1 gm/dL (6.0-8.3)
--- NOTE | 2018-06-14 08:42 | Diagnostic Imaging Report ---
Portable chest x-ray HISTORY: Shortness of breath, pneumonia Compared with prior exam of 06/11/2018, no change in extensive abnormal pleural and parenchymal density within the right upper hemithorax. IMPRESSION: 1. No change in the pulmonary status
[2018-06-14] MEDS: Lactobacillus Rhamnosus GG 15 Billion CFU CAP.SPRINK PO SCH (08:51)
--- NOTE | 2018-06-14 14:18 | General Progress Note ---
Subjective - Review of Systems Service Date: 06/14/18 Subjective: no chest pain Objective - Results Result Diagrams: 06/14/18 04:40 06/14/18 04:40 Recent Labs: Laboratory Last Values WBC 5.1 Th/cmm (4.8-10.8) 06/14/18 04:40 RBC 3.95 Mil/cmm (4.30-5.70) L 06/14/18 04:40 Hgb 11.7 gm/dL (12-16) L 06/14/18 04:40 Hct 35.1 % (41.0-60) L 06/14/18 04:40 MCV 88.9 fl (80-99) 06/14/18 04:40 MCH 29.7 pg (26.0-30.0) 06/14/18 04:40 MCHC Differential 33.4 pg (28.0-36.0) 06/14/18 04:40 RDW 13.0 % (11.5-20.0) 06/14/18 04:40 Plt Count 557 Th/cmm (150-400) H 06/14/18 04:40 MPV 6.6 fl 06/14/18 04:40 Add Manual Diff YES 06/14/18 04:40 Neutrophils % 59.7 % (40.0-80.0) 06/12/18 04:40 Band Neutrophils % 1 % (0-10) 06/14/18 04:40 Lymphocytes % 23.2 % (20.0-50.0) 06/12/18 04:40 Monocytes % 8.7 % (2.0-10.0) 06/12/18 04:40 Eosinophils % 7.6 % (0.0-5.0) H 06/12/18 04:40 Basophils % 0.8 % (0.0-2.0) 06/12/18 04:40 Neutrophils (Manual) 66 % (40-80) 06/14/18 04:40 Lymphocytes 25 % (20-50) 06/14/18 04:40 Monocytes 5 % (2-10) 06/14/18 04:40 Eosinophils 3 % (0-5) 06/14/18 04:40 Basophils 0 % (0-3) 06/05/18 08:00 Atypical Lymphocytes 5 % 06/14/18 04:40 Platelet Estimate INCREASED PLATELETS (NORMAL) 06/14/18 04:40 PT 10.8 SECONDS (9.5-11.5) 06/05/18 08:00 INR 1.04 (0.5-1.4) 06/05/18 08:00 PTT (Actin FS) 28.2 SECONDS (26.0-38.0) 06/05/18 08:00 D-Dimer 1240 ng/mL (100-400) H 05/30/18 10:00 Sodium 136 mEq/L (136-145) 06/14/18 04:40 Potassium 3.9 mEq/L (3.5-5.1) 06/14/18 04:40 Chloride 102 mEq/L (98-107) 06/14/18 04:40 Carbon Dioxide 26.8 mEq/L (21.0-31.0) 06/14/18 04:40 Anion Gap 11.1 (7.0-16.0) 06/14/18 04:40 BUN 10 mg/dL (7-25) 06/14/18 04:40 Creatinine 0.8 mg/dL (0.7-1.3) 06/14/18 04:40 Est GFR ( Amer) > 60.0 ml/min (>90) 06/14/18 04:40 Est GFR (Non-Af Amer) > 60.0 ml/min 06/14/18 04:40 BUN/Creatinine Ratio 12.5 06/14/18 04:40 Glucose 111 mg/dL (70-105) H 06/14/18 04:40 POC Glucose 100 MG/DL (70 - 105) 05/30/18 16:22 Whole Bld Lactic Acid 0.88 mmol/L (0.60-1.99) 06/07/18 00:10 Calcium 8.9 mg/dL (8.6-10.3) 06/14/18 04:40 Total Bilirubin 0.3 mg/dL (0.3-1.0) 06/14/18 04:40 AST 24 U/L (13-39) 06/14/18 04:40 ALT 41 U/L (7-52) 06/14/18 04:40 Alkaline Phosphatase 72 U/L (34-104) 06/14/18 04:40 Troponin I < 0.01 ng/mL (0.01-0.05) L 05/30/18 10:13 Total Protein 6.1 gm/dL (6.0-8.3) 06/14/18 04:40 Albumin 2.9 gm/dL (4.2-5.5) L 06/14/18 04:40 Globulin 3.2 gm/dL 06/14/18 04:40 Albumin/Globulin Ratio 0.9 (1.0-1.8) L 06/14/18 04:40 Urine Source CLEAN C 06/07/18 00:45 Urine Color YELLOW 06/07/18 00:45 Urine Clarity CLEAR (CLEAR) 06/07/18 00:45 Urine pH 7.0 (4.6 - 8.0) 06/07/18 00:45 Ur Specific [place] 1.015 (1.005-1.030) 06/07/18 00:45 Urine Protein NEGATIVE mg/dL (NEGATIVE) 06/07/18 00:45 Urine Glucose (UA) NEGATIVE mg/dL (NEGATIVE) 06/07/18 00:45 Urine Ketones NEGATIVE mg/dL (NEGATIVE) 06/07/18 00:45 Urine Blood NEGATIVE (NEGATIVE) 06/07/18 00:45 Urine Nitrate NEGATIVE (NEGATIVE) 06/07/18 00:45 Urine Bilirubin NEGATIVE (NEGATIVE) 06/07/18 00:45 Urine Urobilinogen 0.2 E.U./dL (0.2 - 1.0) 06/07/18 00:45 Ur Leukocyte Esterase NEGATIVE (NEGATIVE) 06/07/18 00:45 Urine WBC 0-2 /hpf (0-5) 06/07/18 00:45 Ur Epithelial Cells OCCASIONAL /lpf (FEW) 06/07/18 00:45 Urine Bacteria OCCASIONAL /hpf (NONE SEEN) 06/07/18 00:45 Urine Mucus FEW /lpf (FEW) 06/07/18 00:45 Fluid Glucose 106.0 mg/dL 06/05/18 10:45 Fluid Total Protein 3.3 g/dL 06/05/18 10:45 Fluid LDH 579 U/L 06/05/18 10:45 Vancomycin Trough 16.1 ug/mL (5-10) H 06/06/18 09:00 Coccidioides Ab Negative (Neg:<1:2) 06/10/18 04:05 Hepatitis A IgM Ab Negative (Negative) 06/10/18 04:05 Hep Bs Antigen Negative (Negative) 06/10/18 04:05 Hep B Core IgM Ab Negative (Negative) 06/10/18 04:05 Hepatitis C Antibody <0.1 s/co ratio (0.0-0.9) 06/10/18 04:05 HIV 1&2 Antibody Screen NEGATIVE (NEG) 06/07/18 04:15 TB (QFT) Gold In Tube SEE ATTACHED RESULT 06/06/18 20:20 TB Test (QFT) Mitogen SEE ATTACHED RESULT 06/06/18 20:20 TB Test (QFT) Antigen SEE ATTACHED RESULT 06/06/18 20:20 TB Test TB - Nil SEE ATTACHED RESULT 06/06/18 20:20 TB Test (QFT) Interp SEE ATTACHED RESULT 06/06/18 20:20 - Physical Exam Vitals and I&O: Vital Signs Temp 98 F 06/14/18 08:00 Pulse 78 06/14/18 14:10 Resp 22 06/14/18 14:10 BP 117/65 06/14/18 08:00 Pulse Ox 99 06/14/18 14:10 Intake & Output 06/13/18 06/14/18 06/14/18 18:59 06:59 18:59 Intake Total 50 300 Balance 50 300 Weight (lbs) 82.1 kg Intake: Intake, IV Amount 50 cefTRIAXone 1 gm In 50 Sodium Chloride 0.9% 50 ml @ 100 mls/hr IV Q24HR [facility] Rx#:[id number] Oral 300 Other: # Voids 2 # Bowel Movements 0 Weight Source Bedscale Active Medications: Current Medications Acetaminophen (Tylenol Extra Strength) 500 mg PO Q6HR PRN PRN Reason: FEVER Stop: 07/29/18 17:21 Last Admin: 06/13/18 21:48 Dose: 500 mg Albuterol/Ipratropium (Duoneb Neb) 3 ml HHN Q6HRT ANANDA Stop: 07/31/18 18:59 Last Admin: 06/14/18 14:10 Dose: 3 ml Diphenhydramine HCl (Benadryl) 25 mg PO Q6HR PRN PRN Reason: Itching Stop: 08/06/18 17:21 Last Admin: 06/09/18 21:05 Dose: 25 mg Ibuprofen (Motrin) 800 mg PO TID PRN PRN Reason: MILD TO MOD. PAIN Stop: 07/29/18 17:16 Last Admin: 06/08/18 12:24 Dose: 800 mg Isoniazid (Inh) 300 mg PO DAILY [facility] Stop: 08/10/18 08:59 Last Admin: 06/14/18 08:51 Dose: Not Given Lactobacillus Rhamnosus (Culturelle 15b) 1 each PO DAILY [facility] Stop: 08/04/18 08:59 Last Admin: 06/14/18 08:51 Dose: Not Given Levofloxacin (Levaquin) 500 mg PO DAILY@1300 [facility] Stop: 08/10/18 12:59 Last Admin: 06/13/18 15:26 Dose: 500 mg Lorazepam (Ativan) 1 mg PO Q6HR PRN; Protocol PRN Reason: Sleeplessness Stop: 08/09/18 16:49 Last Admin: 06/13/18 21:49 Dose: 1 mg Miscellaneous (Probiotic Screen) 1 ea PRN PRN PRN Reason: PROTOCOL Stop: 08/03/18 09:44 Miscellaneous (Lovenox Subq Per Pharmacy) 1 ea PRN [facility]; Protocol Stop: 08/09/18 16:59 Ondansetron HCl (Zofran) 4 mg IV Q6H PRN PRN Reason: NAUSEA Stop: 07/29/18 17:29 Pyridoxine HCl (Vitamin B6) 50 mg PO DAILY [facility] Stop: 08/13/18 08:59 Last Admin: 06/14/18 08:52 Dose: Not Given Rifampin (Rifadin) 600 mg PO DAILY@1700 [facility] Stop: 08/10/18 16:59 Last Admin: 06/13/18 17:19 Dose: 600 mg Zolpidem Tartrate (Ambien) 10 mg PO HS PRN PRN Reason: Insomnia Stop: 08/10/18 14:43 General: Alert HEENT: Atraumatic Neck: Supple Cardiovascular: Regular rate Lungs: Other (rales better) Abdomen: Soft Extremities: no Edema Skin: Rash (on the chest wall area) - Procedures Procedures: Procedures Procedure Code Date DRAINAGE OF RIGHT PLEURAL CAVITY, PERC APPROACH, DIAGN [id number] 05/30/18 Assessment/Plan - Assessment Assessment: * right lung consolidation and effusion * multiple bilateral pulmonary emboli * right upper ext thrombosis Continue eliquis and antibiotics and follow imaging for resolution; Continue iv antibiotics. bronchoscopy/biopsy if no resolution hgb stable. Continues to be on AFB isolation. off lovenox for procedure. CXR stable for bronchoscopy today Nutritional Asmnt/Malnutr-PDOC - Dietary Evaluation Malnutrition Findings (Please click <Entered> for more info): Nutritional Asmnt/Malnutrition Start: 06/03/18 11: 57 Text: Status: Complete Freq: Protocol: Document 06/03/18 12:44 [email or web address] (Rec: 06/03/18 12:48 LCHEN [email or web address]) Nutritional Asmnt/Malnutrition Patient General Information Nutritional Screening Moderate Risk Pertinent Medical Hx/Surgical Hx no sig medical hx, appendectomy, smokes about 15 cigarettes a day Subjective Information Pt seen lying in bed at time of visit, stating appetite so so. Pt consumed few breakfast today, has no food preference to give. Per EMR, PO intake 25 -50%. Per nurse, pt has DVT to right arm. Current Diet Order/ Nutrition Support regular Pertinent Medications vancomycin Pertinent Labs 05/30 Na 134, glucose 145, Ca 8. 4 Nutritional Hx/Data Height 1.83 m Height (Calculated Centimeters) 182.9 Current Weight (lbs) 87.09 kg Weight (Calculated Kilograms) 87.1 Weight (Calculated Grams) 30718.7 [place] Body Weight 178 Body Mass Index (BMI) 26.0 Weight Status Overweight GI Symptoms GI Symptoms None Last BM not indicated Difficult in: None Skin Integrity/Comment: intact Current %PO Poor (25-49%) Estimated Nutritional Goals BEE in Kcals: Using Current wt Calories/Kcals/Kg 25-30 based IBW 81kg Kcals Calculated 1845-2144 Protein: Using Current wt Protein g/k Protein Calculated 81 Fluid: ml 2024-2430ml (1ml/kcal) Nutritional Problem 1. Problem Problem inadequate food intake Etiology decreased appetite Signs/Symptoms: PO intake 25-30% Malnutrition Alert Is there a minimum of two criteria No selected? Query Text:Check all the applicable criteria. A minimum of two criteria are recommended for diagnosis of either severe or non-severe malnutrition. Malnutrition Related to Morbid Obesity Malnutrition related to morbid obesity No Intervention/Recommendation Comments 1. Continue with current diet as ordered. Encouraged oral intake. 2. Monitor PO intake, wt, labs and skin integrity 3. F/U as moderate risk in 3-5 days, 06/06-06/08, PO check Expected Outcomes/Goals Expected Outcomes/Goals 1. PO intake to meet at least 75% of nutritional needs. 2. Wt stability, skin to remain intact, labs to approach WNL.
[2018-06-14] MEDS ORDERED: Lidocaine 2% Gel 5 mL TP ONE (14:30)
[2018-06-14] MEDS ORDERED: Midazolam 1mg/ml 2 ml vial IV ONE (14:30)
[2018-06-14] MEDS: Rifampin 300 mg Cap PO SCH (16:51)
--- NOTE | 2018-06-14 21:49 | General Progress Note ---
Subjective - Review of Systems Service Date: 06/14/18 Subjective: Patient seen and examined doing better s/p brochoscopy today Objective - Results Result Diagrams: 06/14/18 04:40 06/14/18 04:40 Recent Labs: Laboratory Last Values WBC 5.1 Th/cmm (4.8-10.8) 06/14/18 04:40 RBC 3.95 Mil/cmm (4.30-5.70) L 06/14/18 04:40 Hgb 11.7 gm/dL (12-16) L 06/14/18 04:40 Hct 35.1 % (41.0-60) L 06/14/18 04:40 MCV 88.9 fl (80-99) 06/14/18 04:40 MCH 29.7 pg (26.0-30.0) 06/14/18 04:40 MCHC Differential 33.4 pg (28.0-36.0) 06/14/18 04:40 RDW 13.0 % (11.5-20.0) 06/14/18 04:40 Plt Count 557 Th/cmm (150-400) H 06/14/18 04:40 MPV 6.6 fl 06/14/18 04:40 Add Manual Diff YES 06/14/18 04:40 Neutrophils % 59.7 % (40.0-80.0) 06/12/18 04:40 Band Neutrophils % 1 % (0-10) 06/14/18 04:40 Lymphocytes % 23.2 % (20.0-50.0) 06/12/18 04:40 Monocytes % 8.7 % (2.0-10.0) 06/12/18 04:40 Eosinophils % 7.6 % (0.0-5.0) H 06/12/18 04:40 Basophils % 0.8 % (0.0-2.0) 06/12/18 04:40 Neutrophils (Manual) 66 % (40-80) 06/14/18 04:40 Lymphocytes 25 % (20-50) 06/14/18 04:40 Monocytes 5 % (2-10) 06/14/18 04:40 Eosinophils 3 % (0-5) 06/14/18 04:40 Basophils 0 % (0-3) 06/05/18 08:00 Atypical Lymphocytes 5 % 06/14/18 04:40 Platelet Estimate INCREASED PLATELETS (NORMAL) 06/14/18 04:40 PT 10.8 SECONDS (9.5-11.5) 06/05/18 08:00 INR 1.04 (0.5-1.4) 06/05/18 08:00 PTT (Actin FS) 28.2 SECONDS (26.0-38.0) 06/05/18 08:00 D-Dimer 1240 ng/mL (100-400) H 05/30/18 10:00 Sodium 136 mEq/L (136-145) 06/14/18 04:40 Potassium 3.9 mEq/L (3.5-5.1) 06/14/18 04:40 Chloride 102 mEq/L (98-107) 06/14/18 04:40 Carbon Dioxide 26.8 mEq/L (21.0-31.0) 06/14/18 04:40 Anion Gap 11.1 (7.0-16.0) 06/14/18 04:40 BUN 10 mg/dL (7-25) 06/14/18 04:40 Creatinine 0.8 mg/dL (0.7-1.3) 06/14/18 04:40 Est GFR ( Amer) > 60.0 ml/min (>90) 06/14/18 04:40 Est GFR (Non-Af Amer) > 60.0 ml/min 06/14/18 04:40 BUN/Creatinine Ratio 12.5 06/14/18 04:40 Glucose 111 mg/dL (70-105) H 06/14/18 04:40 POC Glucose 100 MG/DL (70 - 105) 05/30/18 16:22 Whole Bld Lactic Acid 0.88 mmol/L (0.60-1.99) 06/07/18 00:10 Calcium 8.9 mg/dL (8.6-10.3) 06/14/18 04:40 Total Bilirubin 0.3 mg/dL (0.3-1.0) 06/14/18 04:40 AST 24 U/L (13-39) 06/14/18 04:40 ALT 41 U/L (7-52) 06/14/18 04:40 Alkaline Phosphatase 72 U/L (34-104) 06/14/18 04:40 Troponin I < 0.01 ng/mL (0.01-0.05) L 05/30/18 10:13 Total Protein 6.1 gm/dL (6.0-8.3) 06/14/18 04:40 Albumin 2.9 gm/dL (4.2-5.5) L 06/14/18 04:40 Globulin 3.2 gm/dL 06/14/18 04:40 Albumin/Globulin Ratio 0.9 (1.0-1.8) L 06/14/18 04:40 Urine Source CLEAN C 06/07/18 00:45 Urine Color YELLOW 06/07/18 00:45 Urine Clarity CLEAR (CLEAR) 06/07/18 00:45 Urine pH 7.0 (4.6 - 8.0) 06/07/18 00:45 Ur Specific [place] 1.015 (1.005-1.030) 06/07/18 00:45 Urine Protein NEGATIVE mg/dL (NEGATIVE) 06/07/18 00:45 Urine Glucose (UA) NEGATIVE mg/dL (NEGATIVE) 06/07/18 00:45 Urine Ketones NEGATIVE mg/dL (NEGATIVE) 06/07/18 00:45 Urine Blood NEGATIVE (NEGATIVE) 06/07/18 00:45 Urine Nitrate NEGATIVE (NEGATIVE) 06/07/18 00:45 Urine Bilirubin NEGATIVE (NEGATIVE) 06/07/18 00:45 Urine Urobilinogen 0.2 E.U./dL (0.2 - 1.0) 06/07/18 00:45 Ur Leukocyte Esterase NEGATIVE (NEGATIVE) 06/07/18 00:45 Urine WBC 0-2 /hpf (0-5) 06/07/18 00:45 Ur Epithelial Cells OCCASIONAL /lpf (FEW) 06/07/18 00:45 Urine Bacteria OCCASIONAL /hpf (NONE SEEN) 06/07/18 00:45 Urine Mucus FEW /lpf (FEW) 06/07/18 00:45 Fluid Glucose 106.0 mg/dL 06/05/18 10:45 Fluid Total Protein 3.3 g/dL 06/05/18 10:45 Fluid LDH 579 U/L 06/05/18 10:45 Vancomycin Trough 16.1 ug/mL (5-10) H 06/06/18 09:00 Coccidioides Ab Negative (Neg:<1:2) 06/10/18 04:05 Hepatitis A IgM Ab Negative (Negative) 06/10/18 04:05 Hep Bs Antigen Negative (Negative) 06/10/18 04:05 Hep B Core IgM Ab Negative (Negative) 06/10/18 04:05 Hepatitis C Antibody <0.1 s/co ratio (0.0-0.9) 06/10/18 04:05 HIV 1&2 Antibody Screen NEGATIVE (NEG) 06/07/18 04:15 TB (QFT) Gold In Tube SEE ATTACHED RESULT 06/06/18 20:20 TB Test (QFT) Mitogen SEE ATTACHED RESULT 06/06/18 20:20 TB Test (QFT) Antigen SEE ATTACHED RESULT 06/06/18 20:20 TB Test TB - Nil SEE ATTACHED RESULT 06/06/18 20:20 TB Test (QFT) Interp SEE ATTACHED RESULT 06/06/18 20:20 - Physical Exam Vitals and I&O: Vital Signs Temp 97.5 F 06/14/18 16:00 Pulse 89 06/14/18 16:00 Resp 13 06/14/18 16:00 BP 100/55 06/14/18 16:00 Pulse Ox 97 06/14/18 16:00 Intake & Output 06/14/18 06/14/18 06/15/18 06:59 18:59 06:59 Intake Total 300 300 Output Total 600 Balance 300 -300 Weight (lbs) 82.1 kg 82.1 kg Intake: Oral 300 300 Output: Urine 600 Other: # Voids 2 # Bowel Movements 0 Weight Source Bedscale Bedscale Active Medications: Current Medications Acetaminophen (Tylenol Extra Strength) 500 mg PO Q6HR PRN PRN Reason: FEVER Stop: 07/29/18 17:21 Last Admin: 06/13/18 21:48 Dose: 500 mg Albuterol/Ipratropium (Duoneb Neb) 3 ml HHN Q6HRT ANANDA Stop: 07/31/18 18:59 Last Admin: 06/14/18 14:10 Dose: 3 ml Diphenhydramine HCl (Benadryl) 25 mg PO Q6HR PRN PRN Reason: Itching Stop: 08/06/18 17:21 Last Admin: 06/09/18 21:05 Dose: 25 mg Ibuprofen (Motrin) 800 mg PO TID PRN PRN Reason: MILD TO MOD. PAIN Stop: 07/29/18 17:16 Last Admin: 06/08/18 12:24 Dose: 800 mg Isoniazid (Inh) 300 mg PO DAILY [facility] Stop: 08/10/18 08:59 Last Admin: 06/14/18 08:51 Dose: Not Given Lactobacillus Rhamnosus (Culturelle 15b) 1 each PO DAILY [facility] Stop: 08/04/18 08:59 Last Admin: 06/14/18 08:51 Dose: Not Given Levofloxacin (Levaquin) 500 mg PO DAILY@1300 [facility] Stop: 08/10/18 12:59 Last Admin: 06/14/18 16:50 Dose: 500 mg Lorazepam (Ativan) 1 mg PO Q6HR PRN; Protocol PRN Reason: Sleeplessness Stop: 08/09/18 16:49 Last Admin: 06/14/18 21:20 Dose: 1 mg Miscellaneous (Probiotic Screen) 1 ea PRN PRN PRN Reason: PROTOCOL Stop: 08/03/18 09:44 Miscellaneous (Lovenox Subq Per Pharmacy) 1 [facility] PRN ANANDA; Protocol Stop: 08/09/18 16:59 Ondansetron HCl (Zofran) 4 mg IV Q6H PRN PRN Reason: NAUSEA Stop: 07/29/18 17:29 Pyridoxine HCl (Vitamin B6) 50 mg PO DAILY [facility] Stop: 08/13/18 08:59 Last Admin: 06/14/18 08:52 Dose: Not Given Rifampin (Rifadin) 600 mg PO DAILY@1700 [facility] Stop: 08/10/18 16:59 Last Admin: 06/14/18 16:51 Dose: 600 mg Zolpidem Tartrate (Ambien) 10 mg PO HS PRN PRN Reason: Insomnia Stop: 08/10/18 14:43 General: Alert Cardiovascular: Regular rate Lungs: Other (rales better) Extremities: no Edema Skin: Rash (on the chest wall area) - Procedures Procedures: Procedures Procedure Code Date DRAINAGE OF RIGHT PLEURAL CAVITY, PERC APPROACH, DIAGN [id number] 05/30/18 Assessment/Plan - Assessment Assessment: Bilateral PE pneumonia Hemorrhagic pleural effusion s/p thoracentesis Right UE DVT Dermatitis M avium infection Insomnia - Plan Plan: Sputum culture s/o M avium infection Pulmonary dc isolation DC TB meds Continue iv antibiotics Anticoagulation per Hematology Discussed with the patient regarding sputum culture findings and plan of care He understood well Nutritional Asmnt/Malnutr-PDOC - Dietary Evaluation Malnutrition Findings (Please click <Entered> for more info): Nutritional Asmnt/Malnutrition Start: 06/03/18 11: 57 Text: Status: Complete Freq: Protocol: Document 06/03/18 12:44 [email or web address] (Rec: 06/03/18 12:48 LCLANA [email or web address]) Nutritional Asmnt/Malnutrition Patient General Information Nutritional Screening Moderate Risk Pertinent Medical Hx/Surgical Hx no sig medical hx, appendectomy, smokes about 15 cigarettes a day Subjective Information Pt seen lying in bed at time of visit, stating appetite so so. Pt consumed few breakfast today, has no food preference to give. Per EMR, PO intake 25 -50%. Per nurse, pt has DVT to right arm. Current Diet Order/ Nutrition Support regular Pertinent Medications vancomycin Pertinent Labs 05/30 Na 134, glucose 145, Ca 8. 4 Nutritional Hx/Data Height 1.83 m Height (Calculated Centimeters) 182.9 Current Weight (lbs) 87.09 kg Weight (Calculated Kilograms) 87.1 Weight (Calculated Grams) 90541.7 [place] Body Weight 178 Body Mass Index (BMI) 26.0 Weight Status Overweight GI Symptoms GI Symptoms None Last BM not indicated Difficult in: None Skin Integrity/Comment: intact Current %PO Poor (25-49%) Estimated Nutritional Goals BEE in Kcals: Using Current wt Calories/Kcals/Kg 25-30 based IBW 81kg Kcals Calculated 3394-6672 Protein: Using Current wt Protein g/k Protein Calculated 81 Fluid: ml 2024-243ml (1ml/kcal) Nutritional Problem 1. Problem Problem inadequate food intake Etiology decreased appetite Signs/Symptoms: PO intake 25-30% Malnutrition Alert Is there a minimum of two criteria No selected? Query Text:Check all the applicable criteria. A minimum of two criteria are recommended for diagnosis of either severe or non-severe malnutrition. Malnutrition Related to Morbid Obesity Malnutrition related to morbid obesity No Intervention/Recommendation Comments 1. Continue with current diet as ordered. Encouraged oral intake. 2. Monitor PO intake, wt, labs and skin integrity 3. F/U as moderate risk in 3-5 days, 06/06-06/08, PO check Expected Outcomes/Goals Expected Outcomes/Goals 1. PO intake to meet at least 75% of nutritional needs. 2. Wt stability, skin to remain intact, labs to approach WNL.
--- NOTE | 2018-06-14 23:14 | Operative Report ---
DATE OF SURGERY: 06/14/2018 PROCEDURE NAME: Flexible bronchoscopy. PREOPERATIVE DIAGNOSIS: Nonresolving right upper lobe infiltrate. POSTOPERATIVE DIAGNOSIS: No evidence of endobronchial lesions or any airway abnormalities. ANESTHESIA TYPE: IV sedation with local anesthesia. DESCRIPTION OF PROCEDURE: The procedure was done in the ICU on TB isolation room. The total sedation was accomplished with 3 mg of Versed given in increments. The local anesthesia was accomplished with Hurricaine [place] to the throat area and lidocaine jelly to left nostril area. Insertion of the small channel bronchoscope was done in the left nostril area. Inspection of the upper airways shows no abnormalities. Vocal cord moving normally were passed with bronchoscope, some cough reflex present, and lidocaine was given while going to the trachea. Inspection of the trachea shows no abnormalities. Inspection of the karla shows no abnormalities. Inspection of the left side shows no endobronchial lesions. Airways are normal. Inspection of the right side shows no endobronchial lesions. Specifically in the right upper lobe area all segments are open and no evidence of lesion or secretions. Bronchial lavage was done in the right upper lobe area and sent for cultures and cytology. The patient tolerated procedure well, maintained stable vitals throughout the procedure. Discussed about the procedure prior to procedure and after procedure with him and Danielle, his sister who was present during the procedure at bedside. JOB# [id number]
[2018-06-15] MEDS: Albuterol/Ipratropium Neb 3 ML AERS HHN SCH ×4 (01:59→19:39)
[2018-06-15] MEDS: Lactobacillus Rhamnosus GG 15 Billion CFU CAP.SPRINK PO SCH (09:15)
--- NOTE | 2018-06-15 17:56 | Infectious Disease Prog Note ---
Infectious Disease Subjective - Review of Systems Service Date: 06/15/18 Subjective: no fevers. Infectious Disease Objective - Results Result Diagrams: 06/18/18 08:06 06/14/18 04:40 Recent Labs: Laboratory Last Values WBC 5.1 Th/cmm (4.8-10.8) 06/14/18 04:40 RBC 3.95 Mil/cmm (4.30-5.70) L 06/14/18 04:40 Hgb 11.7 gm/dL (12-16) L 06/14/18 04:40 Hct 35.1 % (41.0-60) L 06/14/18 04:40 MCV 88.9 fl (80-99) 06/14/18 04:40 MCH 29.7 pg (26.0-30.0) 06/14/18 04:40 MCHC Differential 33.4 pg (28.0-36.0) 06/14/18 04:40 RDW 13.0 % (11.5-20.0) 06/14/18 04:40 Plt Count 557 Th/cmm (150-400) H 06/14/18 04:40 MPV 6.6 fl 06/14/18 04:40 Add Manual Diff YES 06/14/18 04:40 Neutrophils % 59.7 % (40.0-80.0) 06/12/18 04:40 Band Neutrophils % 1 % (0-10) 06/14/18 04:40 Lymphocytes % 23.2 % (20.0-50.0) 06/12/18 04:40 Monocytes % 8.7 % (2.0-10.0) 06/12/18 04:40 Eosinophils % 7.6 % (0.0-5.0) H 06/12/18 04:40 Basophils % 0.8 % (0.0-2.0) 06/12/18 04:40 Neutrophils (Manual) 66 % (40-80) 06/14/18 04:40 Lymphocytes 25 % (20-50) 06/14/18 04:40 Monocytes 5 % (2-10) 06/14/18 04:40 Eosinophils 3 % (0-5) 06/14/18 04:40 Basophils 0 % (0-3) 06/05/18 08:00 Atypical Lymphocytes 5 % 06/14/18 04:40 Platelet Estimate INCREASED PLATELETS (NORMAL) 06/14/18 04:40 PT 10.8 SECONDS (9.5-11.5) 06/05/18 08:00 INR 1.04 (0.5-1.4) 06/05/18 08:00 PTT (Actin FS) 28.2 SECONDS (26.0-38.0) 06/05/18 08:00 D-Dimer 1240 ng/mL (100-400) H 05/30/18 10:00 Sodium 136 mEq/L (136-145) 06/14/18 04:40 Potassium 3.9 mEq/L (3.5-5.1) 06/14/18 04:40 Chloride 102 mEq/L (98-107) 06/14/18 04:40 Carbon Dioxide 26.8 mEq/L (21.0-31.0) 06/14/18 04:40 Anion Gap 11.1 (7.0-16.0) 06/14/18 04:40 BUN 10 mg/dL (7-25) 06/14/18 04:40 Creatinine 0.8 mg/dL (0.7-1.3) 06/14/18 04:40 Est GFR ( Amer) > 60.0 ml/min (>90) 06/14/18 04:40 Est GFR (Non-Af Amer) > 60.0 ml/min 06/14/18 04:40 BUN/Creatinine Ratio 12.5 06/14/18 04:40 Glucose 111 mg/dL (70-105) H 06/14/18 04:40 POC Glucose 100 MG/DL (70 - 105) 05/30/18 16:22 Whole Bld Lactic Acid 0.88 mmol/L (0.60-1.99) 06/07/18 00:10 Calcium 8.9 mg/dL (8.6-10.3) 06/14/18 04:40 Total Bilirubin 0.3 mg/dL (0.3-1.0) 06/14/18 04:40 AST 24 U/L (13-39) 06/14/18 04:40 ALT 41 U/L (7-52) 06/14/18 04:40 Alkaline Phosphatase 72 U/L (34-104) 06/14/18 04:40 Troponin I < 0.01 ng/mL (0.01-0.05) L 05/30/18 10:13 Total Protein 6.1 gm/dL (6.0-8.3) 06/14/18 04:40 Albumin 2.9 gm/dL (4.2-5.5) L 06/14/18 04:40 Globulin 3.2 gm/dL 06/14/18 04:40 Albumin/Globulin Ratio 0.9 (1.0-1.8) L 06/14/18 04:40 Urine Source CLEAN C 06/07/18 00:45 Urine Color YELLOW 06/07/18 00:45 Urine Clarity CLEAR (CLEAR) 06/07/18 00:45 Urine pH 7.0 (4.6 - 8.0) 06/07/18 00:45 Ur Specific [place] 1.015 (1.005-1.030) 06/07/18 00:45 Urine Protein NEGATIVE mg/dL (NEGATIVE) 06/07/18 00:45 Urine Glucose (UA) NEGATIVE mg/dL (NEGATIVE) 06/07/18 00:45 Urine Ketones NEGATIVE mg/dL (NEGATIVE) 06/07/18 00:45 Urine Blood NEGATIVE (NEGATIVE) 06/07/18 00:45 Urine Nitrate NEGATIVE (NEGATIVE) 06/07/18 00:45 Urine Bilirubin NEGATIVE (NEGATIVE) 06/07/18 00:45 Urine Urobilinogen 0.2 E.U./dL (0.2 - 1.0) 06/07/18 00:45 Ur Leukocyte Esterase NEGATIVE (NEGATIVE) 06/07/18 00:45 Urine WBC 0-2 /hpf (0-5) 06/07/18 00:45 Ur Epithelial Cells OCCASIONAL /lpf (FEW) 06/07/18 00:45 Urine Bacteria OCCASIONAL /hpf (NONE SEEN) 06/07/18 00:45 Urine Mucus FEW /lpf (FEW) 06/07/18 00:45 Fluid Glucose 106.0 mg/dL 06/05/18 10:45 Fluid Total Protein 3.3 g/dL 06/05/18 10:45 Fluid LDH 579 U/L 06/05/18 10:45 Vancomycin Trough 16.1 ug/mL (5-10) H 06/06/18 09:00 Coccidioides Ab Negative (Neg:<1:2) 06/10/18 04:05 Hepatitis A IgM Ab Negative (Negative) 06/10/18 04:05 Hep Bs Antigen Negative (Negative) 06/10/18 04:05 Hep B Core IgM Ab Negative (Negative) 06/10/18 04:05 Hepatitis C Antibody <0.1 s/co ratio (0.0-0.9) 06/10/18 04:05 HIV 1&2 Antibody Screen NEGATIVE (NEG) 06/07/18 04:15 TB (QFT) Gold In Tube SEE ATTACHED RESULT 06/06/18 20:20 TB Test (QFT) Mitogen SEE ATTACHED RESULT 06/06/18 20:20 TB Test (QFT) Antigen SEE ATTACHED RESULT 06/06/18 20:20 TB Test TB - Nil SEE ATTACHED RESULT 06/06/18 20:20 TB Test (QFT) Interp SEE ATTACHED RESULT 06/06/18 20:20 - Physical Exam Vitals and I&O: Vital Signs Temp 98.3 F 06/15/18 16:00 Pulse 97 06/15/18 16:00 Resp 20 06/15/18 16:00 BP 104/59 06/15/18 16:00 Pulse Ox 96 06/15/18 16:00 Intake & Output 06/14/18 06/15/18 06/15/18 18:59 06:59 18:59 Intake Total 300 800 Output Total 600 801 Balance -300 -1 Weight (lbs) 82.1 kg 78.925 kg Intake: Oral 300 800 Output: Urine 600 800 Urine/Stool Mix 1 Other: # Bowel Movements 1 Weight Source Bedscale Bedscale Active Medications: Current Medications Acetaminophen (Tylenol Extra Strength) 500 mg PO Q6HR PRN PRN Reason: FEVER Stop: 07/29/18 17:21 Last Admin: 06/13/18 21:48 Dose: 500 mg Albuterol/Ipratropium (Duoneb Neb) 3 ml HHN Q6HRT ANANDA Stop: 07/31/18 18:59 Last Admin: 06/15/18 13:00 Dose: 3 ml Diphenhydramine HCl (Benadryl) 25 mg PO Q6HR PRN PRN Reason: Itching Stop: 08/06/18 17:21 Last Admin: 06/09/18 21:05 Dose: 25 mg Ibuprofen (Motrin) 800 mg PO TID PRN PRN Reason: MILD TO MOD. PAIN Stop: 07/29/18 17:16 Last Admin: 06/08/18 12:24 Dose: 800 mg Lactobacillus Rhamnosus (Culturelle 15b) 1 each PO DAILY ANANDA Stop: 08/04/18 08:59 Last Admin: 06/15/18 09:15 Dose: 1 each Levofloxacin (Levaquin) 500 mg PO DAILY@1300 ANANDA Stop: 08/10/18 12:59 Last Admin: 06/15/18 13:42 Dose: 500 mg Lorazepam (Ativan) 1 mg PO Q6HR PRN; Protocol PRN Reason: Sleeplessness Stop: 08/09/18 16:49 Last Admin: 06/14/18 21:20 Dose: 1 mg Miscellaneous (Probiotic Screen) 1 ea PRN PRN PRN Reason: PROTOCOL Stop: 08/03/18 09:44 Miscellaneous (Lovenox Subq Per Pharmacy) 1 ea PRN ANANDA; Protocol Stop: 08/09/18 16:59 Ondansetron HCl (Zofran) 4 mg IV Q6H PRN PRN Reason: NAUSEA Stop: 07/29/18 17:29 Zolpidem Tartrate (Ambien) 10 mg PO HS PRN PRN Reason: Insomnia Stop: 08/10/18 14:43 General: no acute distress, well developed, well nourished HEENT: atraumatic, normocephalic, PERRLA, moist mucous membrane Neck: supple, thyromegaly, lymphadenopathy Cardiovascular: S1S2, regular Lungs: clear to auscultation bilaterally, clear to percussion Abdomen: soft, no tender, no distended, no mass Extremities: no cyanosis, no clubbing, no edema Neurological: awake, alert, oriented Skin: intact - Procedures Procedures: Procedures Procedure Code Date DRAINAGE OF RIGHT PLEURAL CAVITY, PERC APPROACH, DIAGN [id number] 05/30/18 Infectious Disease Assmt/Plan - Assessment Assessment: 1. Pneumonmia. RUL, one AFB smear positive on culture, smears are negative >2 weeks. it was finalized as M. avium. 2. PE. 3. DVT. 4. Hemorrhagic pleural effusion. 5. Rash. Resolved. - Plan Plan: Continue levaquin. DC INH and RIf with. and monitor. I was informed by lab that the report will be out in this Sunday or Sunday. DC airborne isolation. Patient does not meet criteria of MAC pneumonia at this time. TB is ruled out. May f/u cxr in one month or so, if there is no resolution. or pending culture grow same bacteria and meets criteria, then treat accordingly. DW patient in detail. Nutritional Asmnt/Malnutr-PDOC - Dietary Evaluation Malnutrition Findings (Please click <Entered> for more info): Nutritional Asmnt/Malnutrition Start: 06/03/18 11: 57 Text: Status: Complete Freq: Protocol: Document 06/03/18 12:44 LCHENG (Rec: 06/03/18 12:48 LCHENG [email or web address]) Nutritional Asmnt/Malnutrition Patient General Information Nutritional Screening Moderate Risk Pertinent Medical Hx/Surgical Hx no sig medical hx, appendectomy, smokes about 15 cigarettes a day Subjective Information Pt seen lying in bed at time of visit, stating appetite so so. Pt consumed few breakfast today, has no food preference to give. Per EMR, PO intake 25 -50%. Per nurse, pt has DVT to right arm. Current Diet Order/ Nutrition Support regular Pertinent Medications vancomycin Pertinent Labs 05/30 Na 134, glucose 145, Ca 8. 4 Nutritional Hx/Data Height 1.83 m Height (Calculated Centimeters) 182.9 Current Weight (lbs) 87.09 kg Weight (Calculated Kilograms) 87.1 Weight (Calculated Grams) 26932.7 [place] Body Weight 178 Body Mass Index (BMI) 26.0 Weight Status Overweight GI Symptoms GI Symptoms None Last BM not indicated Difficult in: None Skin Integrity/Comment: intact Current %PO Poor (25-49%) Estimated Nutritional Goals BEE in Kcals: Using Current wt Calories/Kcals/Kg 25-30 based IBW 81kg Kcals Calculated 7278-9450 Protein: Using Current wt Protein g/k Protein Calculated 81 Fluid: ml 2024-243ml (1ml/kcal) Nutritional Problem 1. Problem Problem inadequate food intake Etiology decreased appetite Signs/Symptoms: PO intake 25-30% Malnutrition Alert Is there a minimum of two criteria No selected? Query Text:Check all the applicable criteria. A minimum of two criteria are recommended for diagnosis of either severe or non-severe malnutrition. Malnutrition Related to Morbid Obesity Malnutrition related to morbid obesity No Intervention/Recommendation Comments 1. Continue with current diet as ordered. Encouraged oral intake. 2. Monitor PO intake, wt, labs and skin integrity 3. F/U as moderate risk in 3-5 days, 06/06-06/08, PO check Expected Outcomes/Goals Expected Outcomes/Goals 1. PO intake to meet at least 75% of nutritional needs. 2. Wt stability, skin to remain intact, labs to approach WNL.
--- NOTE | 2018-06-15 19:52 | General Progress Note ---
Subjective - Review of Systems Service Date: 06/15/18 Subjective: Patient seen and examined doing better no new concern reported Objective - Results Result Diagrams: 06/14/18 04:40 06/14/18 04:40 Recent Labs: Laboratory Last Values WBC 5.1 Th/cmm (4.8-10.8) 06/14/18 04:40 RBC 3.95 Mil/cmm (4.30-5.70) L 06/14/18 04:40 Hgb 11.7 gm/dL (12-16) L 06/14/18 04:40 Hct 35.1 % (41.0-60) L 06/14/18 04:40 MCV 88.9 fl (80-99) 06/14/18 04:40 MCH 29.7 pg (26.0-30.0) 06/14/18 04:40 MCHC Differential 33.4 pg (28.0-36.0) 06/14/18 04:40 RDW 13.0 % (11.5-20.0) 06/14/18 04:40 Plt Count 557 Th/cmm (150-400) H 06/14/18 04:40 MPV 6.6 fl 06/14/18 04:40 Add Manual Diff YES 06/14/18 04:40 Neutrophils % 59.7 % (40.0-80.0) 06/12/18 04:40 Band Neutrophils % 1 % (0-10) 06/14/18 04:40 Lymphocytes % 23.2 % (20.0-50.0) 06/12/18 04:40 Monocytes % 8.7 % (2.0-10.0) 06/12/18 04:40 Eosinophils % 7.6 % (0.0-5.0) H 06/12/18 04:40 Basophils % 0.8 % (0.0-2.0) 06/12/18 04:40 Neutrophils (Manual) 66 % (40-80) 06/14/18 04:40 Lymphocytes 25 % (20-50) 06/14/18 04:40 Monocytes 5 % (2-10) 06/14/18 04:40 Eosinophils 3 % (0-5) 06/14/18 04:40 Basophils 0 % (0-3) 06/05/18 08:00 Atypical Lymphocytes 5 % 06/14/18 04:40 Platelet Estimate INCREASED PLATELETS (NORMAL) 06/14/18 04:40 PT 10.8 SECONDS (9.5-11.5) 06/05/18 08:00 INR 1.04 (0.5-1.4) 06/05/18 08:00 PTT (Actin FS) 28.2 SECONDS (26.0-38.0) 06/05/18 08:00 D-Dimer 1240 ng/mL (100-400) H 05/30/18 10:00 Sodium 136 mEq/L (136-145) 06/14/18 04:40 Potassium 3.9 mEq/L (3.5-5.1) 06/14/18 04:40 Chloride 102 mEq/L (98-107) 06/14/18 04:40 Carbon Dioxide 26.8 mEq/L (21.0-31.0) 06/14/18 04:40 Anion Gap 11.1 (7.0-16.0) 06/14/18 04:40 BUN 10 mg/dL (7-25) 06/14/18 04:40 Creatinine 0.8 mg/dL (0.7-1.3) 06/14/18 04:40 Est GFR ( Amer) > 60.0 ml/min (>90) 06/14/18 04:40 Est GFR (Non-Af Amer) > 60.0 ml/min 06/14/18 04:40 BUN/Creatinine Ratio 12.5 06/14/18 04:40 Glucose 111 mg/dL (70-105) H 06/14/18 04:40 POC Glucose 100 MG/DL (70 - 105) 05/30/18 16:22 Whole Bld Lactic Acid 0.88 mmol/L (0.60-1.99) 06/07/18 00:10 Calcium 8.9 mg/dL (8.6-10.3) 06/14/18 04:40 Total Bilirubin 0.3 mg/dL (0.3-1.0) 06/14/18 04:40 AST 24 U/L (13-39) 06/14/18 04:40 ALT 41 U/L (7-52) 06/14/18 04:40 Alkaline Phosphatase 72 U/L (34-104) 06/14/18 04:40 Troponin I < 0.01 ng/mL (0.01-0.05) L 05/30/18 10:13 Total Protein 6.1 gm/dL (6.0-8.3) 06/14/18 04:40 Albumin 2.9 gm/dL (4.2-5.5) L 06/14/18 04:40 Globulin 3.2 gm/dL 06/14/18 04:40 Albumin/Globulin Ratio 0.9 (1.0-1.8) L 06/14/18 04:40 Urine Source CLEAN C 06/07/18 00:45 Urine Color YELLOW 06/07/18 00:45 Urine Clarity CLEAR (CLEAR) 06/07/18 00:45 Urine pH 7.0 (4.6 - 8.0) 06/07/18 00:45 Ur Specific [place] 1.015 (1.005-1.030) 06/07/18 00:45 Urine Protein NEGATIVE mg/dL (NEGATIVE) 06/07/18 00:45 Urine Glucose (UA) NEGATIVE mg/dL (NEGATIVE) 06/07/18 00:45 Urine Ketones NEGATIVE mg/dL (NEGATIVE) 06/07/18 00:45 Urine Blood NEGATIVE (NEGATIVE) 06/07/18 00:45 Urine Nitrate NEGATIVE (NEGATIVE) 06/07/18 00:45 Urine Bilirubin NEGATIVE (NEGATIVE) 06/07/18 00:45 Urine Urobilinogen 0.2 E.U./dL (0.2 - 1.0) 06/07/18 00:45 Ur Leukocyte Esterase NEGATIVE (NEGATIVE) 06/07/18 00:45 Urine WBC 0-2 /hpf (0-5) 06/07/18 00:45 Ur Epithelial Cells OCCASIONAL /lpf (FEW) 06/07/18 00:45 Urine Bacteria OCCASIONAL /hpf (NONE SEEN) 06/07/18 00:45 Urine Mucus FEW /lpf (FEW) 06/07/18 00:45 Fluid Glucose 106.0 mg/dL 06/05/18 10:45 Fluid Total Protein 3.3 g/dL 06/05/18 10:45 Fluid LDH 579 U/L 06/05/18 10:45 Vancomycin Trough 16.1 ug/mL (5-10) H 06/06/18 09:00 Coccidioides Ab Negative (Neg:<1:2) 06/10/18 04:05 Hepatitis A IgM Ab Negative (Negative) 06/10/18 04:05 Hep Bs Antigen Negative (Negative) 06/10/18 04:05 Hep B Core IgM Ab Negative (Negative) 06/10/18 04:05 Hepatitis C Antibody <0.1 s/co ratio (0.0-0.9) 06/10/18 04:05 HIV 1&2 Antibody Screen NEGATIVE (NEG) 06/07/18 04:15 TB (QFT) Gold In Tube SEE ATTACHED RESULT 06/06/18 20:20 TB Test (QFT) Mitogen SEE ATTACHED RESULT 06/06/18 20:20 TB Test (QFT) Antigen SEE ATTACHED RESULT 06/06/18 20:20 TB Test TB - Nil SEE ATTACHED RESULT 06/06/18 20:20 TB Test (QFT) Interp SEE ATTACHED RESULT 06/06/18 20:20 - Physical Exam Vitals and I&O: Vital Signs Temp 98.3 F 06/15/18 16:00 Pulse 97 06/15/18 16:00 Resp 20 06/15/18 16:00 BP 104/59 06/15/18 16:00 Pulse Ox 96 06/15/18 16:00 Intake & Output 06/15/18 06/15/18 06/16/18 06:59 18:59 06:59 Intake Total 800 1000 Output Total 801 Balance -1 1000 Weight (lbs) 78.925 kg 78.925 kg Intake: Oral 800 1000 Output: Urine 800 Urine/Stool Mix 1 Other: # Voids 4 # Bowel Movements 1 Weight Source Bedscale Bedscale Active Medications: Current Medications Acetaminophen (Tylenol Extra Strength) 500 mg PO Q6HR PRN PRN Reason: FEVER Stop: 07/29/18 17:21 Last Admin: 06/13/18 21:48 Dose: 500 mg Albuterol/Ipratropium (Duoneb Neb) 3 ml HHN Q6HRT ANANDA Stop: 07/31/18 18:59 Last Admin: 06/15/18 19:39 Dose: 3 ml Diphenhydramine HCl (Benadryl) 25 mg PO Q6HR PRN PRN Reason: Itching Stop: 08/06/18 17:21 Last Admin: 06/09/18 21:05 Dose: 25 mg Enoxaparin Sodium (Lovenox) 80 mg SUBQ Q12HR ANANDA Stop: 08/14/18 20:59 Ibuprofen (Motrin) 800 mg PO TID PRN PRN Reason: MILD TO MOD. PAIN Stop: 07/29/18 17:16 Last Admin: 06/08/18 12:24 Dose: 800 mg Lactobacillus Rhamnosus (Culturelle 15b) 1 each PO DAILY ANANDA Stop: 08/04/18 08:59 Last Admin: 06/15/18 09:15 Dose: 1 each Levofloxacin (Levaquin) 500 mg PO DAILY@1300 ANANDA Stop: 08/10/18 12:59 Last Admin: 06/15/18 13:42 Dose: 500 mg Lorazepam (Ativan) 1 mg PO Q6HR PRN; Protocol PRN Reason: Sleeplessness Stop: 08/09/18 16:49 Last Admin: 06/14/18 21:20 Dose: 1 mg Miscellaneous (Probiotic Screen) 1 ea PRN PRN PRN Reason: PROTOCOL Stop: 08/03/18 09:44 Miscellaneous (Lovenox Subq Per Pharmacy) 1 ea MC PRN ANANDA; Protocol Stop: 08/09/18 16:59 Ondansetron HCl (Zofran) 4 mg IV Q6H PRN PRN Reason: NAUSEA Stop: 07/29/18 17:29 Zolpidem Tartrate (Ambien) 10 mg PO HS PRN PRN Reason: Insomnia Stop: 08/10/18 14:43 General: Alert Neck: Supple Cardiovascular: Regular rate Lungs: Other (few rales bilaterally) Extremities: no Edema Skin: Rash (on the chest wall area) - Procedures Procedures: Procedures Procedure Code Date DRAINAGE OF RIGHT PLEURAL CAVITY, PERC APPROACH, DIAGN [id number] 05/30/18 Assessment/Plan - Assessment Assessment: Bilateral PE pneumonia s/p Hemorrhagic pleural effusion s/p thoracentesis Right UE DVT on anticoagulation Dermatitis better M avium infection per sputum culture (sample 05/21/18) Insomnia - Plan Plan: Sputum culture s/o M avium infection .Case discussed with ID and Pulmonary in details. Both agreed to DC ISOLATION. Pulmonary recomended to follow up on bronchoscopy tissue result. If no improvement in Chest xray in 2-3 days patient may need CT guided biopsy. patient and family well aware about the negative MTB result and Bronchoscopy findings and plan of care. Antibiotics per ID recomendations Anticoagulation restarted Nutritional Asmnt/Malnutr-PDOC - Dietary Evaluation Malnutrition Findings (Please click <Entered> for more info): Nutritional Asmnt/Malnutrition Start: 06/03/18 11: 57 Text: Status: Complete Freq: Protocol: Document 06/03/18 12:44 LCHARJITG (Rec: 06/03/18 12:48 LCHARJITG [email or web address]) Nutritional Asmnt/Malnutrition Patient General Information Nutritional Screening Moderate Risk Pertinent Medical Hx/Surgical Hx no sig medical hx, appendectomy, smokes about 15 cigarettes a day Subjective Information Pt seen lying in bed at time of visit, stating appetite so so. Pt consumed few breakfast today, has no food preference to give. Per EMR, PO intake 25 -50%. Per nurse, pt has DVT to right arm. Current Diet Order/ Nutrition Support regular Pertinent Medications vancomycin Pertinent Labs 05/30 Na 134, glucose 145, Ca 8. 4 Nutritional Hx/Data Height 1.83 m Height (Calculated Centimeters) 182.9 Current Weight (lbs) 87.09 kg Weight (Calculated Kilograms) 87.1 Weight (Calculated Grams) 42388.7 [place] Body Weight 178 Body Mass Index (BMI) 26.0 Weight Status Overweight GI Symptoms GI Symptoms None Last BM not indicated Difficult in: None Skin Integrity/Comment: intact Current %PO Poor (25-49%) Estimated Nutritional Goals BEE in Kcals: Using Current wt Calories/Kcals/Kg 25-30 based IBW 81kg Kcals Calculated 6151-1457 Protein: Using Current wt Protein g/k Protein Calculated 81 Fluid: ml 2024-2430ml (1ml/kcal) Nutritional Problem 1. Problem Problem inadequate food intake Etiology decreased appetite Signs/Symptoms: PO intake 25-30% Malnutrition Alert Is there a minimum of two criteria No selected? Query Text:Check all the applicable criteria. A minimum of two criteria are recommended for diagnosis of either severe or non-severe malnutrition. Malnutrition Related to Morbid Obesity Malnutrition related to morbid obesity No Intervention/Recommendation Comments 1. Continue with current diet as ordered. Encouraged oral intake. 2. Monitor PO intake, wt, labs and skin integrity 3. F/U as moderate risk in 3-5 days, 06/06-06/08, PO check Expected Outcomes/Goals Expected Outcomes/Goals 1. PO intake to meet at least 75% of nutritional needs. 2. Wt stability, skin to remain intact, labs to approach WNL.
[2018-06-15] MEDS: Enoxaparin 80 mg/0.8 mL 0.8mL Syr SUBQ SCH (21:14)
[2018-06-16] MEDS: Albuterol/Ipratropium Neb 3 ML AERS HHN SCH ×4 (00:15→19:11)
[2018-06-16] MEDS: Lactobacillus Rhamnosus GG 15 Billion CFU CAP.SPRINK PO SCH (08:57)
[2018-06-16] MEDS: Enoxaparin 80 mg/0.8 mL 0.8mL Syr SUBQ SCH ×2 (09:18→21:09)
--- NOTE | 2018-06-16 22:15 | General Progress Note ---
Subjective - Review of Systems Service Date: 06/16/18 Subjective: Patient seen and examined no new concern reported Objective - Results Result Diagrams: 06/14/18 04:40 06/14/18 04:40 Recent Labs: Laboratory Last Values WBC 5.1 Th/cmm (4.8-10.8) 06/14/18 04:40 RBC 3.95 Mil/cmm (4.30-5.70) L 06/14/18 04:40 Hgb 11.7 gm/dL (12-16) L 06/14/18 04:40 Hct 35.1 % (41.0-60) L 06/14/18 04:40 MCV 88.9 fl (80-99) 06/14/18 04:40 MCH 29.7 pg (26.0-30.0) 06/14/18 04:40 MCHC Differential 33.4 pg (28.0-36.0) 06/14/18 04:40 RDW 13.0 % (11.5-20.0) 06/14/18 04:40 Plt Count 557 Th/cmm (150-400) H 06/14/18 04:40 MPV 6.6 fl 06/14/18 04:40 Add Manual Diff YES 06/14/18 04:40 Neutrophils % 59.7 % (40.0-80.0) 06/12/18 04:40 Band Neutrophils % 1 % (0-10) 06/14/18 04:40 Lymphocytes % 23.2 % (20.0-50.0) 06/12/18 04:40 Monocytes % 8.7 % (2.0-10.0) 06/12/18 04:40 Eosinophils % 7.6 % (0.0-5.0) H 06/12/18 04:40 Basophils % 0.8 % (0.0-2.0) 06/12/18 04:40 Neutrophils (Manual) 66 % (40-80) 06/14/18 04:40 Lymphocytes 25 % (20-50) 06/14/18 04:40 Monocytes 5 % (2-10) 06/14/18 04:40 Eosinophils 3 % (0-5) 06/14/18 04:40 Basophils 0 % (0-3) 06/05/18 08:00 Atypical Lymphocytes 5 % 06/14/18 04:40 Platelet Estimate INCREASED PLATELETS (NORMAL) 06/14/18 04:40 PT 10.8 SECONDS (9.5-11.5) 06/05/18 08:00 INR 1.04 (0.5-1.4) 06/05/18 08:00 PTT (Actin FS) 28.2 SECONDS (26.0-38.0) 06/05/18 08:00 D-Dimer 1240 ng/mL (100-400) H 05/30/18 10:00 Sodium 136 mEq/L (136-145) 06/14/18 04:40 Potassium 3.9 mEq/L (3.5-5.1) 06/14/18 04:40 Chloride 102 mEq/L (98-107) 06/14/18 04:40 Carbon Dioxide 26.8 mEq/L (21.0-31.0) 06/14/18 04:40 Anion Gap 11.1 (7.0-16.0) 06/14/18 04:40 BUN 10 mg/dL (7-25) 06/14/18 04:40 Creatinine 0.8 mg/dL (0.7-1.3) 06/14/18 04:40 Est GFR ( Amer) > 60.0 ml/min (>90) 06/14/18 04:40 Est GFR (Non-Af Amer) > 60.0 ml/min 06/14/18 04:40 BUN/Creatinine Ratio 12.5 06/14/18 04:40 Glucose 111 mg/dL (70-105) H 06/14/18 04:40 POC Glucose 100 MG/DL (70 - 105) 05/30/18 16:22 Whole Bld Lactic Acid 0.88 mmol/L (0.60-1.99) 06/07/18 00:10 Calcium 8.9 mg/dL (8.6-10.3) 06/14/18 04:40 Total Bilirubin 0.3 mg/dL (0.3-1.0) 06/14/18 04:40 AST 24 U/L (13-39) 06/14/18 04:40 ALT 41 U/L (7-52) 06/14/18 04:40 Alkaline Phosphatase 72 U/L (34-104) 06/14/18 04:40 Troponin I < 0.01 ng/mL (0.01-0.05) L 05/30/18 10:13 Total Protein 6.1 gm/dL (6.0-8.3) 06/14/18 04:40 Albumin 2.9 gm/dL (4.2-5.5) L 06/14/18 04:40 Globulin 3.2 gm/dL 06/14/18 04:40 Albumin/Globulin Ratio 0.9 (1.0-1.8) L 06/14/18 04:40 Urine Source CLEAN C 06/07/18 00:45 Urine Color YELLOW 06/07/18 00:45 Urine Clarity CLEAR (CLEAR) 06/07/18 00:45 Urine pH 7.0 (4.6 - 8.0) 06/07/18 00:45 Ur Specific [place] 1.015 (1.005-1.030) 06/07/18 00:45 Urine Protein NEGATIVE mg/dL (NEGATIVE) 06/07/18 00:45 Urine Glucose (UA) NEGATIVE mg/dL (NEGATIVE) 06/07/18 00:45 Urine Ketones NEGATIVE mg/dL (NEGATIVE) 06/07/18 00:45 Urine Blood NEGATIVE (NEGATIVE) 06/07/18 00:45 Urine Nitrate NEGATIVE (NEGATIVE) 06/07/18 00:45 Urine Bilirubin NEGATIVE (NEGATIVE) 06/07/18 00:45 Urine Urobilinogen 0.2 E.U./dL (0.2 - 1.0) 06/07/18 00:45 Ur Leukocyte Esterase NEGATIVE (NEGATIVE) 06/07/18 00:45 Urine WBC 0-2 /hpf (0-5) 06/07/18 00:45 Ur Epithelial Cells OCCASIONAL /lpf (FEW) 06/07/18 00:45 Urine Bacteria OCCASIONAL /hpf (NONE SEEN) 06/07/18 00:45 Urine Mucus FEW /lpf (FEW) 06/07/18 00:45 Fluid Glucose 106.0 mg/dL 06/05/18 10:45 Fluid Total Protein 3.3 g/dL 06/05/18 10:45 Fluid LDH 579 U/L 06/05/18 10:45 Vancomycin Trough 16.1 ug/mL (5-10) H 06/06/18 09:00 Coccidioides Ab Negative (Neg:<1:2) 06/10/18 04:05 Hepatitis A IgM Ab Negative (Negative) 06/10/18 04:05 Hep Bs Antigen Negative (Negative) 06/10/18 04:05 Hep B Core IgM Ab Negative (Negative) 06/10/18 04:05 Hepatitis C Antibody <0.1 s/co ratio (0.0-0.9) 06/10/18 04:05 HIV 1&2 Antibody Screen NEGATIVE (NEG) 06/07/18 04:15 TB (QFT) Gold In Tube SEE ATTACHED RESULT 06/06/18 20:20 TB Test (QFT) Mitogen SEE ATTACHED RESULT 06/06/18 20:20 TB Test (QFT) Antigen SEE ATTACHED RESULT 06/06/18 20:20 TB Test TB - Nil SEE ATTACHED RESULT 06/06/18 20:20 TB Test (QFT) Interp SEE ATTACHED RESULT 06/06/18 20:20 - Physical Exam Vitals and I&O: Vital Signs Temp 98.3 F 06/16/18 16:31 Pulse 85 06/16/18 19:12 Resp 18 06/16/18 19:12 BP 99/59 06/16/18 16:31 Pulse Ox 94 06/16/18 19:12 Intake & Output 06/16/18 06/16/18 06/17/18 06:59 18:59 06:59 Intake Total 750 Output Total 200 0 Balance -200 750 Weight (lbs) 78.245 kg 78.018 kg Intake: Oral 750 Output: Urine 200 Stool 0 Urine/Stool Mix 0 Other: # Voids 3 # Bowel Movements 1 Weight Source Bedscale Bedscale Active Medications: Current Medications Acetaminophen (Tylenol Extra Strength) 500 mg PO Q6HR PRN PRN Reason: FEVER Stop: 07/29/18 17:21 Last Admin: 06/13/18 21:48 Dose: 500 mg Albuterol/Ipratropium (Duoneb Neb) 3 ml HHN Q6HRT ANANDA Stop: 07/31/18 18:59 Last Admin: 06/16/18 19:11 Dose: 3 ml Diphenhydramine HCl (Benadryl) 25 mg PO Q6HR PRN PRN Reason: Itching Stop: 08/06/18 17:21 Last Admin: 06/09/18 21:05 Dose: 25 mg Enoxaparin Sodium (Lovenox) 80 mg SUBQ Q12HR ANANDA Stop: 08/14/18 20:59 Last Admin: 06/16/18 21:09 Dose: 80 mg Ibuprofen (Motrin) 800 mg PO TID PRN PRN Reason: MILD TO MOD. PAIN Stop: 07/29/18 17:16 Last Admin: 06/08/18 12:24 Dose: 800 mg Lactobacillus Rhamnosus (Culturelle 15b) 1 each PO DAILY ANANDA Stop: 08/04/18 08:59 Last Admin: 06/16/18 08:57 Dose: 1 each Levofloxacin (Levaquin) 500 mg PO DAILY@1300 ANANDA Stop: 08/10/18 12:59 Last Admin: 06/16/18 12:53 Dose: 500 mg Lorazepam (Ativan) 1 mg PO Q6HR PRN; Protocol PRN Reason: Sleeplessness Stop: 08/09/18 16:49 Last Admin: 06/16/18 21:09 Dose: 1 mg Miscellaneous (Probiotic Screen) 1 ea MC PRN PRN PRN Reason: PROTOCOL Stop: 08/03/18 09:44 Miscellaneous (Lovenox Subq Per Pharmacy) 1 ea MC PRN ANANDA; Protocol Stop: 08/09/18 16:59 Ondansetron HCl (Zofran) 4 mg IV Q6H PRN PRN Reason: NAUSEA Stop: 07/29/18 17:29 Zolpidem Tartrate (Ambien) 10 mg PO HS PRN PRN Reason: Insomnia Stop: 08/10/18 14:43 General: Alert Cardiovascular: Regular rate Lungs: Clear to auscultation Extremities: no Edema Skin: Rash (on the chest wall area) - Procedures Procedures: Procedures Procedure Code Date DRAINAGE OF RIGHT PLEURAL CAVITY, PERC APPROACH, DIAGN [id number] 05/30/18 Assessment/Plan - Assessment Assessment: Bilateral PE pneumonia s/p Hemorrhagic pleural effusion s/p thoracentesis Right UE DVT on anticoagulation Dermatitis better M avium infection per sputum culture (sample 05/21/18) Insomnia - Plan Plan: Continue current treatment Follow up on bronchial washing Nutritional Asmnt/Malnutr-PDOC - Dietary Evaluation Malnutrition Findings (Please click <Entered> for more info): Nutritional Asmnt/Malnutrition Start: 06/03/18 11: 57 Text: Status: Complete Freq: Protocol: Document 06/03/18 12:44 LCHARJITG (Rec: 06/03/18 12:48 [email or web address]) Nutritional Asmnt/Malnutrition Patient General Information Nutritional Screening Moderate Risk Pertinent Medical Hx/Surgical Hx no sig medical hx, appendectomy, smokes about 15 cigarettes a day Subjective Information Pt seen lying in bed at time of visit, stating appetite so so. Pt consumed few breakfast today, has no food preference to give. Per EMR, PO intake 25 -50%. Per nurse, pt has DVT to right arm. Current Diet Order/ Nutrition Support regular Pertinent Medications vancomycin Pertinent Labs 05/30 Na 134, glucose 145, Ca 8. 4 Nutritional Hx/Data Height 1.83 m Height (Calculated Centimeters) 182.9 Current Weight (lbs) 87.09 kg Weight (Calculated Kilograms) 87.1 Weight (Calculated Grams) 31807.7 [place] Body Weight 178 Body Mass Index (BMI) 26.0 Weight Status Overweight GI Symptoms GI Symptoms None Last BM not indicated Difficult in: None Skin Integrity/Comment: intact Current %PO Poor (25-49%) Estimated Nutritional Goals BEE in Kcals: Using Current wt Calories/Kcals/Kg 25-30 based IBW 81kg Kcals Calculated 2537-4149 Protein: Using Current wt Protein g/k Protein Calculated 81 Fluid: ml 2024-243ml (1ml/kcal) Nutritional Problem 1. Problem Problem inadequate food intake Etiology decreased appetite Signs/Symptoms: PO intake 25-30% Malnutrition Alert Is there a minimum of two criteria No selected? Query Text:Check all the applicable criteria. A minimum of two criteria are recommended for diagnosis of either severe or non-severe malnutrition. Malnutrition Related to Morbid Obesity Malnutrition related to morbid obesity No Intervention/Recommendation Comments 1. Continue with current diet as ordered. Encouraged oral intake. 2. Monitor PO intake, wt, labs and skin integrity 3. F/U as moderate risk in 3-5 days, 06/06-06/08, PO check Expected Outcomes/Goals Expected Outcomes/Goals 1. PO intake to meet at least 75% of nutritional needs. 2. Wt stability, skin to remain intact, labs to approach WNL.
[2018-06-17] MEDS: Albuterol/Ipratropium Neb 3 ML AERS HHN SCH ×4 (00:53→19:49)
[2018-06-17] MEDS: Enoxaparin 80 mg/0.8 mL 0.8mL Syr SUBQ SCH ×2 (09:07→20:52)
[2018-06-17] MEDS: Lactobacillus Rhamnosus GG 15 Billion CFU CAP.SPRINK PO SCH (09:07)
--- NOTE | 2018-06-17 09:23 | Diagnostic Imaging Report ---
Portable chest x-ray HISTORY: Shortness of breath Compared to prior exam of June 14, 2018, no change in opacification of the right upper hemithorax. The heart size remains normal. IMPRESSION: 1. No change in the pulmonary status
--- NOTE | 2018-06-17 10:30 | General Progress Note ---
Subjective - Review of Systems Service Date: 06/17/18 Subjective: no chest pain no bleeding Objective - Results Result Diagrams: 06/14/18 04:40 06/14/18 04:40 Recent Labs: Laboratory Last Values WBC 5.1 Th/cmm (4.8-10.8) 06/14/18 04:40 RBC 3.95 Mil/cmm (4.30-5.70) L 06/14/18 04:40 Hgb 11.7 gm/dL (12-16) L 06/14/18 04:40 Hct 35.1 % (41.0-60) L 06/14/18 04:40 MCV 88.9 fl (80-99) 06/14/18 04:40 MCH 29.7 pg (26.0-30.0) 06/14/18 04:40 MCHC Differential 33.4 pg (28.0-36.0) 06/14/18 04:40 RDW 13.0 % (11.5-20.0) 06/14/18 04:40 Plt Count 557 Th/cmm (150-400) H 06/14/18 04:40 MPV 6.6 fl 06/14/18 04:40 Add Manual Diff YES 06/14/18 04:40 Neutrophils % 59.7 % (40.0-80.0) 06/12/18 04:40 Band Neutrophils % 1 % (0-10) 06/14/18 04:40 Lymphocytes % 23.2 % (20.0-50.0) 06/12/18 04:40 Monocytes % 8.7 % (2.0-10.0) 06/12/18 04:40 Eosinophils % 7.6 % (0.0-5.0) H 06/12/18 04:40 Basophils % 0.8 % (0.0-2.0) 06/12/18 04:40 Neutrophils (Manual) 66 % (40-80) 06/14/18 04:40 Lymphocytes 25 % (20-50) 06/14/18 04:40 Monocytes 5 % (2-10) 06/14/18 04:40 Eosinophils 3 % (0-5) 06/14/18 04:40 Basophils 0 % (0-3) 06/05/18 08:00 Atypical Lymphocytes 5 % 06/14/18 04:40 Platelet Estimate INCREASED PLATELETS (NORMAL) 06/14/18 04:40 PT 10.8 SECONDS (9.5-11.5) 06/05/18 08:00 INR 1.04 (0.5-1.4) 06/05/18 08:00 PTT (Actin FS) 28.2 SECONDS (26.0-38.0) 06/05/18 08:00 D-Dimer 1240 ng/mL (100-400) H 05/30/18 10:00 Sodium 136 mEq/L (136-145) 06/14/18 04:40 Potassium 3.9 mEq/L (3.5-5.1) 06/14/18 04:40 Chloride 102 mEq/L (98-107) 06/14/18 04:40 Carbon Dioxide 26.8 mEq/L (21.0-31.0) 06/14/18 04:40 Anion Gap 11.1 (7.0-16.0) 06/14/18 04:40 BUN 10 mg/dL (7-25) 06/14/18 04:40 Creatinine 0.8 mg/dL (0.7-1.3) 06/14/18 04:40 Est GFR ( Amer) > 60.0 ml/min (>90) 06/14/18 04:40 Est GFR (Non-Af Amer) > 60.0 ml/min 06/14/18 04:40 BUN/Creatinine Ratio 12.5 06/14/18 04:40 Glucose 111 mg/dL (70-105) H 06/14/18 04:40 POC Glucose 100 MG/DL (70 - 105) 05/30/18 16:22 Whole Bld Lactic Acid 0.88 mmol/L (0.60-1.99) 06/07/18 00:10 Calcium 8.9 mg/dL (8.6-10.3) 06/14/18 04:40 Total Bilirubin 0.3 mg/dL (0.3-1.0) 06/14/18 04:40 AST 24 U/L (13-39) 06/14/18 04:40 ALT 41 U/L (7-52) 06/14/18 04:40 Alkaline Phosphatase 72 U/L (34-104) 06/14/18 04:40 Troponin I < 0.01 ng/mL (0.01-0.05) L 05/30/18 10:13 Total Protein 6.1 gm/dL (6.0-8.3) 06/14/18 04:40 Albumin 2.9 gm/dL (4.2-5.5) L 06/14/18 04:40 Globulin 3.2 gm/dL 06/14/18 04:40 Albumin/Globulin Ratio 0.9 (1.0-1.8) L 06/14/18 04:40 Urine Source CLEAN C 06/07/18 00:45 Urine Color YELLOW 06/07/18 00:45 Urine Clarity CLEAR (CLEAR) 06/07/18 00:45 Urine pH 7.0 (4.6 - 8.0) 06/07/18 00:45 Ur Specific [place] 1.015 (1.005-1.030) 06/07/18 00:45 Urine Protein NEGATIVE mg/dL (NEGATIVE) 06/07/18 00:45 Urine Glucose (UA) NEGATIVE mg/dL (NEGATIVE) 06/07/18 00:45 Urine Ketones NEGATIVE mg/dL (NEGATIVE) 06/07/18 00:45 Urine Blood NEGATIVE (NEGATIVE) 06/07/18 00:45 Urine Nitrate NEGATIVE (NEGATIVE) 06/07/18 00:45 Urine Bilirubin NEGATIVE (NEGATIVE) 06/07/18 00:45 Urine Urobilinogen 0.2 E.U./dL (0.2 - 1.0) 06/07/18 00:45 Ur Leukocyte Esterase NEGATIVE (NEGATIVE) 06/07/18 00:45 Urine WBC 0-2 /hpf (0-5) 06/07/18 00:45 Ur Epithelial Cells OCCASIONAL /lpf (FEW) 06/07/18 00:45 Urine Bacteria OCCASIONAL /hpf (NONE SEEN) 06/07/18 00:45 Urine Mucus FEW /lpf (FEW) 06/07/18 00:45 Fluid Glucose 106.0 mg/dL 06/05/18 10:45 Fluid Total Protein 3.3 g/dL 06/05/18 10:45 Fluid LDH 579 U/L 06/05/18 10:45 Vancomycin Trough 16.1 ug/mL (5-10) H 06/06/18 09:00 Coccidioides Ab Negative (Neg:<1:2) 06/10/18 04:05 Hepatitis A IgM Ab Negative (Negative) 06/10/18 04:05 Hep Bs Antigen Negative (Negative) 06/10/18 04:05 Hep B Core IgM Ab Negative (Negative) 06/10/18 04:05 Hepatitis C Antibody <0.1 s/co ratio (0.0-0.9) 06/10/18 04:05 HIV 1&2 Antibody Screen NEGATIVE (NEG) 06/07/18 04:15 TB (QFT) Gold In Tube SEE ATTACHED RESULT 06/06/18 20:20 TB Test (QFT) Mitogen SEE ATTACHED RESULT 06/06/18 20:20 TB Test (QFT) Antigen SEE ATTACHED RESULT 06/06/18 20:20 TB Test TB - Nil SEE ATTACHED RESULT 06/06/18 20:20 TB Test (QFT) Interp SEE ATTACHED RESULT 06/06/18 20:20 - Physical Exam Vitals and I&O: Vital Signs Temp 97.5 F 06/17/18 08:00 Pulse 103 06/17/18 08:00 Resp 18 06/17/18 08:00 BP 91/56 06/17/18 08:00 Pulse Ox 98 06/17/18 08:00 Intake & Output 06/16/18 06/17/18 06/17/18 18:59 06:59 18:59 Intake Total 750 300 Output Total 0 650 Balance 750 -350 Weight (lbs) 78.018 kg 78.018 kg 78.018 kg Intake: Oral 750 300 Output: Urine 650 Stool 0 Urine/Stool Mix 0 Other: # Voids 3 # Bowel Movements 1 Weight Source Bedscale Bedscale Bedscale Active Medications: Current Medications Acetaminophen (Tylenol Extra Strength) 500 mg PO Q6HR PRN PRN Reason: FEVER Stop: 07/29/18 17:21 Last Admin: 06/13/18 21:48 Dose: 500 mg Albuterol/Ipratropium (Duoneb Neb) 3 ml HHN Q6HRT ANANDA Stop: 07/31/18 18:59 Last Admin: 06/17/18 06:59 Dose: 3 ml Diphenhydramine HCl (Benadryl) 25 mg PO Q6HR PRN PRN Reason: Itching Stop: 08/06/18 17:21 Last Admin: 06/09/18 21:05 Dose: 25 mg Enoxaparin Sodium (Lovenox) 80 mg SUBQ Q12HR ANANDA Stop: 08/14/18 20:59 Last Admin: 06/17/18 09:07 Dose: 80 mg Ibuprofen (Motrin) 800 mg PO TID PRN PRN Reason: MILD TO MOD. PAIN Stop: 07/29/18 17:16 Last Admin: 06/08/18 12:24 Dose: 800 mg Lactobacillus Rhamnosus (Culturelle 15b) 1 each PO DAILY ANANDA Stop: 08/04/18 08:59 Last Admin: 06/17/18 09:07 Dose: 1 each Levofloxacin (Levaquin) 500 mg PO DAILY@1300 ANANDA Stop: 08/10/18 12:59 Last Admin: 06/16/18 12:53 Dose: 500 mg Lorazepam (Ativan) 1 mg PO Q6HR PRN; Protocol PRN Reason: Sleeplessness Stop: 08/09/18 16:49 Last Admin: 06/16/18 21:09 Dose: 1 mg Miscellaneous (Probiotic Screen) 1 ea MC PRN PRN PRN Reason: PROTOCOL Stop: 08/03/18 09:44 Miscellaneous (Lovenox Subq Per Pharmacy) 1 ea MC PRN ANANDA; Protocol Stop: 08/09/18 16:59 Ondansetron HCl (Zofran) 4 mg IV Q6H PRN PRN Reason: NAUSEA Stop: 07/29/18 17:29 Zolpidem Tartrate (Ambien) 10 mg PO HS PRN PRN Reason: Insomnia Stop: 08/10/18 14:43 General: Alert HEENT: Atraumatic Neck: Supple Cardiovascular: Regular rate Lungs: Clear to auscultation Abdomen: Soft Extremities: no Edema Skin: Rash (on the chest wall area) - Procedures Procedures: Procedures Procedure Code Date DRAINAGE OF RIGHT PLEURAL CAVITY, PERC APPROACH, DIAGN [id number] 05/30/18 Assessment/Plan - Assessment Assessment: * right lung consolidation and effusion * multiple bilateral pulmonary emboli * right upper ext thrombosis Continue anticoagulation and antibiotics and follow imaging for resolution; bronchoscopy/biopsy 06/14 no endobronchial lesions hgb stable. . CXR stable/ persistent infilterate right upper lobe Nutritional Asmnt/Malnutr-PDOC - Dietary Evaluation Malnutrition Findings (Please click <Entered> for more info): Nutritional Asmnt/Malnutrition Start: 06/03/18 11: 57 Text: Status: Complete Freq: Protocol: Document 06/03/18 12:44 LCHARJITG (Rec: 06/03/18 12:48 [email or web address] [email or web address]) Nutritional Asmnt/Malnutrition Patient General Information Nutritional Screening Moderate Risk Pertinent Medical Hx/Surgical Hx no sig medical hx, appendectomy, smokes about 15 cigarettes a day Subjective Information Pt seen lying in bed at time of visit, stating appetite so so. Pt consumed few breakfast today, has no food preference to give. Per EMR, PO intake 25 -50%. Per nurse, pt has DVT to right arm. Current Diet Order/ Nutrition Support regular Pertinent Medications vancomycin Pertinent Labs 05/30 Na 134, glucose 145, Ca 8. 4 Nutritional Hx/Data Height 1.83 m Height (Calculated Centimeters) 182.9 Current Weight (lbs) 87.09 kg Weight (Calculated Kilograms) 87.1 Weight (Calculated Grams) 84246.7 [place] Body Weight 178 Body Mass Index (BMI) 26.0 Weight Status Overweight GI Symptoms GI Symptoms None Last BM not indicated Difficult in: None Skin Integrity/Comment: intact Current %PO Poor (25-49%) Estimated Nutritional Goals BEE in Kcals: Using Current wt Calories/Kcals/Kg 25-30 based IBW 81kg Kcals Calculated 3953-9462 Protein: Using Current wt Protein g/k Protein Calculated 81 Fluid: ml 2024-243ml (1ml/kcal) Nutritional Problem 1. Problem Problem inadequate food intake Etiology decreased appetite Signs/Symptoms: PO intake 25-30% Malnutrition Alert Is there a minimum of two criteria No selected? Query Text:Check all the applicable criteria. A minimum of two criteria are recommended for diagnosis of either severe or non-severe malnutrition. Malnutrition Related to Morbid Obesity Malnutrition related to morbid obesity No Intervention/Recommendation Comments 1. Continue with current diet as ordered. Encouraged oral intake. 2. Monitor PO intake, wt, labs and skin integrity 3. F/U as moderate risk in 3-5 days, 06/06-06/08, PO check Expected Outcomes/Goals Expected Outcomes/Goals 1. PO intake to meet at least 75% of nutritional needs. 2. Wt stability, skin to remain intact, labs to approach WNL.
--- NOTE | 2018-06-17 11:37 | Infectious Disease Prog Note ---
Infectious Disease Subjective - Review of Systems Service Date: 06/17/18 Subjective: no fevers. Infectious Disease Objective - Results Result Diagrams: 06/18/18 08:06 06/14/18 04:40 Recent Labs: Laboratory Last Values WBC 5.1 Th/cmm (4.8-10.8) 06/14/18 04:40 RBC 3.95 Mil/cmm (4.30-5.70) L 06/14/18 04:40 Hgb 11.7 gm/dL (12-16) L 06/14/18 04:40 Hct 35.1 % (41.0-60) L 06/14/18 04:40 MCV 88.9 fl (80-99) 06/14/18 04:40 MCH 29.7 pg (26.0-30.0) 06/14/18 04:40 MCHC Differential 33.4 pg (28.0-36.0) 06/14/18 04:40 RDW 13.0 % (11.5-20.0) 06/14/18 04:40 Plt Count 557 Th/cmm (150-400) H 06/14/18 04:40 MPV 6.6 fl 06/14/18 04:40 Add Manual Diff YES 06/14/18 04:40 Neutrophils % 59.7 % (40.0-80.0) 06/12/18 04:40 Band Neutrophils % 1 % (0-10) 06/14/18 04:40 Lymphocytes % 23.2 % (20.0-50.0) 06/12/18 04:40 Monocytes % 8.7 % (2.0-10.0) 06/12/18 04:40 Eosinophils % 7.6 % (0.0-5.0) H 06/12/18 04:40 Basophils % 0.8 % (0.0-2.0) 06/12/18 04:40 Neutrophils (Manual) 66 % (40-80) 06/14/18 04:40 Lymphocytes 25 % (20-50) 06/14/18 04:40 Monocytes 5 % (2-10) 06/14/18 04:40 Eosinophils 3 % (0-5) 06/14/18 04:40 Basophils 0 % (0-3) 06/05/18 08:00 Atypical Lymphocytes 5 % 06/14/18 04:40 Platelet Estimate INCREASED PLATELETS (NORMAL) 06/14/18 04:40 PT 10.8 SECONDS (9.5-11.5) 06/05/18 08:00 INR 1.04 (0.5-1.4) 06/05/18 08:00 PTT (Actin FS) 28.2 SECONDS (26.0-38.0) 06/05/18 08:00 D-Dimer 1240 ng/mL (100-400) H 05/30/18 10:00 Sodium 136 mEq/L (136-145) 06/14/18 04:40 Potassium 3.9 mEq/L (3.5-5.1) 06/14/18 04:40 Chloride 102 mEq/L (98-107) 06/14/18 04:40 Carbon Dioxide 26.8 mEq/L (21.0-31.0) 06/14/18 04:40 Anion Gap 11.1 (7.0-16.0) 06/14/18 04:40 BUN 10 mg/dL (7-25) 06/14/18 04:40 Creatinine 0.8 mg/dL (0.7-1.3) 06/14/18 04:40 Est GFR ( Amer) > 60.0 ml/min (>90) 06/14/18 04:40 Est GFR (Non-Af Amer) > 60.0 ml/min 06/14/18 04:40 BUN/Creatinine Ratio 12.5 06/14/18 04:40 Glucose 111 mg/dL (70-105) H 06/14/18 04:40 POC Glucose 100 MG/DL (70 - 105) 05/30/18 16:22 Whole Bld Lactic Acid 0.88 mmol/L (0.60-1.99) 06/07/18 00:10 Calcium 8.9 mg/dL (8.6-10.3) 06/14/18 04:40 Total Bilirubin 0.3 mg/dL (0.3-1.0) 06/14/18 04:40 AST 24 U/L (13-39) 06/14/18 04:40 ALT 41 U/L (7-52) 06/14/18 04:40 Alkaline Phosphatase 72 U/L (34-104) 06/14/18 04:40 Troponin I < 0.01 ng/mL (0.01-0.05) L 05/30/18 10:13 Total Protein 6.1 gm/dL (6.0-8.3) 06/14/18 04:40 Albumin 2.9 gm/dL (4.2-5.5) L 06/14/18 04:40 Globulin 3.2 gm/dL 06/14/18 04:40 Albumin/Globulin Ratio 0.9 (1.0-1.8) L 06/14/18 04:40 Urine Source CLEAN C 06/07/18 00:45 Urine Color YELLOW 06/07/18 00:45 Urine Clarity CLEAR (CLEAR) 06/07/18 00:45 Urine pH 7.0 (4.6 - 8.0) 06/07/18 00:45 Ur Specific [place] 1.015 (1.005-1.030) 06/07/18 00:45 Urine Protein NEGATIVE mg/dL (NEGATIVE) 06/07/18 00:45 Urine Glucose (UA) NEGATIVE mg/dL (NEGATIVE) 06/07/18 00:45 Urine Ketones NEGATIVE mg/dL (NEGATIVE) 06/07/18 00:45 Urine Blood NEGATIVE (NEGATIVE) 06/07/18 00:45 Urine Nitrate NEGATIVE (NEGATIVE) 06/07/18 00:45 Urine Bilirubin NEGATIVE (NEGATIVE) 06/07/18 00:45 Urine Urobilinogen 0.2 E.U./dL (0.2 - 1.0) 06/07/18 00:45 Ur Leukocyte Esterase NEGATIVE (NEGATIVE) 06/07/18 00:45 Urine WBC 0-2 /hpf (0-5) 06/07/18 00:45 Ur Epithelial Cells OCCASIONAL /lpf (FEW) 06/07/18 00:45 Urine Bacteria OCCASIONAL /hpf (NONE SEEN) 06/07/18 00:45 Urine Mucus FEW /lpf (FEW) 06/07/18 00:45 Fluid Glucose 106.0 mg/dL 06/05/18 10:45 Fluid Total Protein 3.3 g/dL 06/05/18 10:45 Fluid LDH 579 U/L 06/05/18 10:45 Vancomycin Trough 16.1 ug/mL (5-10) H 06/06/18 09:00 Coccidioides Ab Negative (Neg:<1:2) 06/10/18 04:05 Hepatitis A IgM Ab Negative (Negative) 06/10/18 04:05 Hep Bs Antigen Negative (Negative) 06/10/18 04:05 Hep B Core IgM Ab Negative (Negative) 06/10/18 04:05 Hepatitis C Antibody <0.1 s/co ratio (0.0-0.9) 06/10/18 04:05 HIV 1&2 Antibody Screen NEGATIVE (NEG) 06/07/18 04:15 TB (QFT) Gold In Tube SEE ATTACHED RESULT 06/06/18 20:20 TB Test (QFT) Mitogen SEE ATTACHED RESULT 06/06/18 20:20 TB Test (QFT) Antigen SEE ATTACHED RESULT 06/06/18 20:20 TB Test TB - Nil SEE ATTACHED RESULT 06/06/18 20:20 TB Test (QFT) Interp SEE ATTACHED RESULT 06/06/18 20:20 - Physical Exam Vitals and I&O: Vital Signs Temp 97.5 F 06/17/18 08:00 Pulse 103 06/17/18 08:00 Resp 18 06/17/18 08:00 BP 91/56 06/17/18 08:00 Pulse Ox 98 06/17/18 08:00 Intake & Output 06/16/18 06/17/18 06/17/18 18:59 06:59 18:59 Intake Total 750 300 Output Total 0 650 Balance 750 -350 Weight (lbs) 78.018 kg 78.018 kg 78.018 kg Intake: Oral 750 300 Output: Urine 650 Stool 0 Urine/Stool Mix 0 Other: # Voids 3 # Bowel Movements 1 Weight Source Bedscale Bedscale Bedscale Active Medications: Current Medications Acetaminophen (Tylenol Extra Strength) 500 mg PO Q6HR PRN PRN Reason: FEVER Stop: 07/29/18 17:21 Last Admin: 06/13/18 21:48 Dose: 500 mg Albuterol/Ipratropium (Duoneb Neb) 3 ml HHN Q6HRT ANANDA Stop: 07/31/18 18:59 Last Admin: 06/17/18 06:59 Dose: 3 ml Diphenhydramine HCl (Benadryl) 25 mg PO Q6HR PRN PRN Reason: Itching Stop: 08/06/18 17:21 Last Admin: 06/09/18 21:05 Dose: 25 mg Enoxaparin Sodium (Lovenox) 80 mg SUBQ Q12HR ANANDA Stop: 08/14/18 20:59 Last Admin: 06/17/18 09:07 Dose: 80 mg Ibuprofen (Motrin) 800 mg PO TID PRN PRN Reason: MILD TO MOD. PAIN Stop: 07/29/18 17:16 Last Admin: 06/08/18 12:24 Dose: 800 mg Lactobacillus Rhamnosus (Culturelle 15b) 1 each PO DAILY ANANDA Stop: 08/04/18 08:59 Last Admin: 06/17/18 09:07 Dose: 1 each Levofloxacin (Levaquin) 500 mg PO DAILY@1300 ANANDA Stop: 08/10/18 12:59 Last Admin: 06/16/18 12:53 Dose: 500 mg Lorazepam (Ativan) 1 mg PO Q6HR PRN; Protocol PRN Reason: Sleeplessness Stop: 08/09/18 16:49 Last Admin: 06/16/18 21:09 Dose: 1 mg Miscellaneous (Probiotic Screen) 1 ea PRN PRN PRN Reason: PROTOCOL Stop: 08/03/18 09:44 Miscellaneous (Lovenox Subq Per Pharmacy) 1 ea MC PRN ANANDA; Protocol Stop: 08/09/18 16:59 Ondansetron HCl (Zofran) 4 mg IV Q6H PRN PRN Reason: NAUSEA Stop: 07/29/18 17:29 Zolpidem Tartrate (Ambien) 10 mg PO HS PRN PRN Reason: Insomnia Stop: 08/10/18 14:43 General: no acute distress, well developed, well nourished HEENT: atraumatic, normocephalic, PERRLA Neck: supple, no thyromegaly Cardiovascular: S1S2, regular Lungs: clear to auscultation bilaterally, clear to percussion Abdomen: soft, no tender, no distended, no mass Extremities: no cyanosis, no clubbing, no edema Neurological: awake, alert, oriented Skin: intact - Procedures Procedures: Procedures Procedure Code Date DRAINAGE OF RIGHT PLEURAL CAVITY, PERC APPROACH, DIAGN [id number] 05/30/18 Infectious Disease Assmt/Plan - Assessment Assessment: 1. Pneumonmia. 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 it was finalized as M. avium. 2. PE. 3. DVT. 4. Hemorrhagic pleural effusion. 5. Rash. Resolved. - Plan Plan: Continue levaquin. I was informed by lab that the report will be out in this Sunday or Sunday. 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 TB is ruled out. May f/u cxr in one month or so, if there is no resolution. or pending culture grow same bacteria and meets criteria, then treat accordingly. Will DW [facility]. I called the [facility], will wait for their call back. DW patient in detail. Nutritional Asmnt/Malnutr-PDOC - Dietary Evaluation Malnutrition Findings (Please click <Entered> for more info): Nutritional Asmnt/Malnutrition Start: 06/03/18 11: 57 Text: Status: Complete Freq: Protocol: Document 06/03/18 12:44 LCHARJITG (Rec: 06/03/18 12:48 HARJITG [email or web address]) Nutritional Asmnt/Malnutrition Patient General Information Nutritional Screening Moderate Risk Pertinent Medical Hx/Surgical Hx no sig medical hx, appendectomy, smokes about 15 cigarettes a day Subjective Information Pt seen lying in bed at time of visit, stating appetite so so. Pt consumed few breakfast today, has no food preference to give. Per EMR, PO intake 25 -50%. Per nurse, pt has DVT to right arm. Current Diet Order/ Nutrition Support regular Pertinent Medications vancomycin Pertinent Labs 05/30 Na 134, glucose 145, Ca 8. 4 Nutritional Hx/Data Height 1.83 m Height (Calculated Centimeters) 182.9 Current Weight (lbs) 87.09 kg Weight (Calculated Kilograms) 87.1 Weight (Calculated Grams) 42333.7 [place] Body Weight 178 Body Mass Index (BMI) 26.0 Weight Status Overweight GI Symptoms GI Symptoms None Last BM not indicated Difficult in: None Skin Integrity/Comment: intact Current %PO Poor (25-49%) Estimated Nutritional Goals BEE in Kcals: Using Current wt Calories/Kcals/Kg 25-30 based IBW 81kg Kcals Calculated 1758-7791 Protein: Using Current wt Protein g/k Protein Calculated 81 Fluid: ml 2024-243ml (1ml/kcal) Nutritional Problem 1. Problem Problem inadequate food intake Etiology decreased appetite Signs/Symptoms: PO intake 25-30% Malnutrition Alert Is there a minimum of two criteria No selected? Query Text:Check all the applicable criteria. A minimum of two criteria are recommended for diagnosis of either severe or non-severe malnutrition. Malnutrition Related to Morbid Obesity Malnutrition related to morbid obesity No Intervention/Recommendation Comments 1. Continue with current diet as ordered. Encouraged oral intake. 2. Monitor PO intake, wt, labs and skin integrity 3. F/U as moderate risk in 3-5 days, 06/06-06/08, PO check Expected Outcomes/Goals Expected Outcomes/Goals 1. PO intake to meet at least 75% of nutritional needs. 2. Wt stability, skin to remain intact, labs to approach WNL.
--- NOTE | 2018-06-17 12:55 | Pathology Report ---
[id number] Collection date: 06/14/2018 Surgeon: Dr. Toño Moseley Specimen Description: Bronchial washing, right upper lobe. Gross Description: Received in formalin is approximately 12 ml of clear watery fluid. The entire specimen is submitted for cytology processing. Microscopic Description: Examination of two cytospins shows benign bronchial epithelial cells admixed with macrophages. The background contains inflammatory cells consisting of mostly neutrophils. There is no evidence for atypia. Diagnosis: No cytologic evidence for malignancy, bronchial washing cytology from right upper lobe. [facility]# [id number] [facility]
--- NOTE | 2018-06-17 21:12 | General Progress Note ---
Subjective - Review of Systems Service Date: 06/17/18 Subjective: Patient seen and examined with DR Moseley Patient denied any new concern Objective - Results Result Diagrams: 06/14/18 04:40 06/14/18 04:40 Recent Labs: Laboratory Last Values WBC 5.1 Th/cmm (4.8-10.8) 06/14/18 04:40 RBC 3.95 Mil/cmm (4.30-5.70) L 06/14/18 04:40 Hgb 11.7 gm/dL (12-16) L 06/14/18 04:40 Hct 35.1 % (41.0-60) L 06/14/18 04:40 MCV 88.9 fl (80-99) 06/14/18 04:40 MCH 29.7 pg (26.0-30.0) 06/14/18 04:40 MCHC Differential 33.4 pg (28.0-36.0) 06/14/18 04:40 RDW 13.0 % (11.5-20.0) 06/14/18 04:40 Plt Count 557 Th/cmm (150-400) H 06/14/18 04:40 MPV 6.6 fl 06/14/18 04:40 Add Manual Diff YES 06/14/18 04:40 Neutrophils % 59.7 % (40.0-80.0) 06/12/18 04:40 Band Neutrophils % 1 % (0-10) 06/14/18 04:40 Lymphocytes % 23.2 % (20.0-50.0) 06/12/18 04:40 Monocytes % 8.7 % (2.0-10.0) 06/12/18 04:40 Eosinophils % 7.6 % (0.0-5.0) H 06/12/18 04:40 Basophils % 0.8 % (0.0-2.0) 06/12/18 04:40 Neutrophils (Manual) 66 % (40-80) 06/14/18 04:40 Lymphocytes 25 % (20-50) 06/14/18 04:40 Monocytes 5 % (2-10) 06/14/18 04:40 Eosinophils 3 % (0-5) 06/14/18 04:40 Basophils 0 % (0-3) 06/05/18 08:00 Atypical Lymphocytes 5 % 06/14/18 04:40 Platelet Estimate INCREASED PLATELETS (NORMAL) 06/14/18 04:40 PT 10.8 SECONDS (9.5-11.5) 06/05/18 08:00 INR 1.04 (0.5-1.4) 06/05/18 08:00 PTT (Actin FS) 28.2 SECONDS (26.0-38.0) 06/05/18 08:00 D-Dimer 1240 ng/mL (100-400) H 05/30/18 10:00 Sodium 136 mEq/L (136-145) 06/14/18 04:40 Potassium 3.9 mEq/L (3.5-5.1) 06/14/18 04:40 Chloride 102 mEq/L (98-107) 06/14/18 04:40 Carbon Dioxide 26.8 mEq/L (21.0-31.0) 06/14/18 04:40 Anion Gap 11.1 (7.0-16.0) 06/14/18 04:40 BUN 10 mg/dL (7-25) 06/14/18 04:40 Creatinine 0.8 mg/dL (0.7-1.3) 06/14/18 04:40 Est GFR ( Amer) > 60.0 ml/min (>90) 06/14/18 04:40 Est GFR (Non-Af Amer) > 60.0 ml/min 06/14/18 04:40 BUN/Creatinine Ratio 12.5 06/14/18 04:40 Glucose 111 mg/dL (70-105) H 06/14/18 04:40 POC Glucose 100 MG/DL (70 - 105) 05/30/18 16:22 Whole Bld Lactic Acid 0.88 mmol/L (0.60-1.99) 06/07/18 00:10 Calcium 8.9 mg/dL (8.6-10.3) 06/14/18 04:40 Total Bilirubin 0.3 mg/dL (0.3-1.0) 06/14/18 04:40 AST 24 U/L (13-39) 06/14/18 04:40 ALT 41 U/L (7-52) 06/14/18 04:40 Alkaline Phosphatase 72 U/L (34-104) 06/14/18 04:40 Troponin I < 0.01 ng/mL (0.01-0.05) L 05/30/18 10:13 Total Protein 6.1 gm/dL (6.0-8.3) 06/14/18 04:40 Albumin 2.9 gm/dL (4.2-5.5) L 06/14/18 04:40 Globulin 3.2 gm/dL 06/14/18 04:40 Albumin/Globulin Ratio 0.9 (1.0-1.8) L 06/14/18 04:40 Urine Source CLEAN C 06/07/18 00:45 Urine Color YELLOW 06/07/18 00:45 Urine Clarity CLEAR (CLEAR) 06/07/18 00:45 Urine pH 7.0 (4.6 - 8.0) 06/07/18 00:45 Ur Specific [place] 1.015 (1.005-1.030) 06/07/18 00:45 Urine Protein NEGATIVE mg/dL (NEGATIVE) 06/07/18 00:45 Urine Glucose (UA) NEGATIVE mg/dL (NEGATIVE) 06/07/18 00:45 Urine Ketones NEGATIVE mg/dL (NEGATIVE) 06/07/18 00:45 Urine Blood NEGATIVE (NEGATIVE) 06/07/18 00:45 Urine Nitrate NEGATIVE (NEGATIVE) 06/07/18 00:45 Urine Bilirubin NEGATIVE (NEGATIVE) 06/07/18 00:45 Urine Urobilinogen 0.2 E.U./dL (0.2 - 1.0) 06/07/18 00:45 Ur Leukocyte Esterase NEGATIVE (NEGATIVE) 06/07/18 00:45 Urine WBC 0-2 /hpf (0-5) 06/07/18 00:45 Ur Epithelial Cells OCCASIONAL /lpf (FEW) 06/07/18 00:45 Urine Bacteria OCCASIONAL /hpf (NONE SEEN) 06/07/18 00:45 Urine Mucus FEW /lpf (FEW) 06/07/18 00:45 Fluid Glucose 106.0 mg/dL 06/05/18 10:45 Fluid Total Protein 3.3 g/dL 06/05/18 10:45 Fluid LDH 579 U/L 06/05/18 10:45 Vancomycin Trough 16.1 ug/mL (5-10) H 06/06/18 09:00 Coccidioides Ab Negative (Neg:<1:2) 06/10/18 04:05 Hepatitis A IgM Ab Negative (Negative) 06/10/18 04:05 Hep Bs Antigen Negative (Negative) 06/10/18 04:05 Hep B Core IgM Ab Negative (Negative) 06/10/18 04:05 Hepatitis C Antibody <0.1 s/co ratio (0.0-0.9) 06/10/18 04:05 HIV 1&2 Antibody Screen NEGATIVE (NEG) 06/07/18 04:15 TB (QFT) Gold In Tube SEE ATTACHED RESULT 06/06/18 20:20 TB Test (QFT) Mitogen SEE ATTACHED RESULT 06/06/18 20:20 TB Test (QFT) Antigen SEE ATTACHED RESULT 06/06/18 20:20 TB Test TB - Nil SEE ATTACHED RESULT 06/06/18 20:20 TB Test (QFT) Interp SEE ATTACHED RESULT 06/06/18 20:20 - Physical Exam Vitals and I&O: Vital Signs Temp 98.6 F 06/17/18 20:00 Pulse 95 06/17/18 20:00 Resp 17 06/17/18 20:00 BP 101/63 06/17/18 20:00 Pulse Ox 96 06/17/18 20:00 Intake & Output 06/17/18 06/17/18 06/18/18 06:59 18:59 06:59 Intake Total 300 Output Total 650 Balance -350 Weight (lbs) 78.018 kg 78.018 kg Intake: Oral 300 Output: Urine 650 Other: Weight Source Bedscale Bedscale Active Medications: Current Medications Acetaminophen (Tylenol Extra Strength) 500 mg PO Q6HR PRN PRN Reason: FEVER Stop: 07/29/18 17:21 Last Admin: 06/13/18 21:48 Dose: 500 mg Albuterol/Ipratropium (Duoneb Neb) 3 ml HHN Q6HRT ANANDA Stop: 07/31/18 18:59 Last Admin: 06/17/18 19:49 Dose: 3 ml Diphenhydramine HCl (Benadryl) 25 mg PO Q6HR PRN PRN Reason: Itching Stop: 08/06/18 17:21 Last Admin: 06/09/18 21:05 Dose: 25 mg Enoxaparin Sodium (Lovenox) 80 mg SUBQ Q12HR ANANDA Stop: 08/14/18 20:59 Last Admin: 06/17/18 20:52 Dose: 80 mg Ibuprofen (Motrin) 800 mg PO TID PRN PRN Reason: MILD TO MOD. PAIN Stop: 07/29/18 17:16 Last Admin: 06/08/18 12:24 Dose: 800 mg Lactobacillus Rhamnosus (Culturelle 15b) 1 each PO DAILY ANANDA Stop: 08/04/18 08:59 Last Admin: 06/17/18 09:07 Dose: 1 each Levofloxacin (Levaquin) 500 mg PO DAILY@1300 ANANDA Stop: 08/10/18 12:59 Last Admin: 06/17/18 13:12 Dose: 500 mg Lorazepam (Ativan) 1 mg PO Q6HR PRN; Protocol PRN Reason: Sleeplessness Stop: 08/09/18 16:49 Last Admin: 06/16/18 21:09 Dose: 1 mg Miscellaneous (Probiotic Screen) 1 ea PRN PRN PRN Reason: PROTOCOL Stop: 08/03/18 09:44 Miscellaneous (Lovenox Subq Per Pharmacy) 1 ea PRN ANANDA; Protocol Stop: 08/09/18 16:59 Ondansetron HCl (Zofran) 4 mg IV Q6H PRN PRN Reason: NAUSEA Stop: 07/29/18 17:29 Zolpidem Tartrate (Ambien) 10 mg PO HS PRN PRN Reason: Insomnia Stop: 08/10/18 14:43 General: Alert Cardiovascular: Regular rate Lungs: Clear to auscultation Abdomen: Soft Extremities: no Edema - Procedures Procedures: Procedures Procedure Code Date DRAINAGE OF RIGHT PLEURAL CAVITY, PERC APPROACH, DIAGN [id number] 05/30/18 DRAINAGE OF RIGHT UPPER LUNG LOBE, ENDO, DIAGN [id number] 05/30/18 Assessment/Plan - Assessment Assessment: Bilateral PE pneumonia s/p Hemorrhagic pleural effusion s/p thoracentesis Right UE DVT on anticoagulation Dermatitis better M avium infection per sputum culture (sample 05/21/18) Insomnia - Plan Plan: Case discussed with DR Moseley who recomended patient should be transferred to higher level of care for evaluation of open lung biopsy since patient's xray unchanged . We both discussed this plan with the patient He understood and agreed. Will discuss with the case management to help facilitate the transfer process. Continue current treatment. Nutritional Asmnt/Malnutr-PDOC - Dietary Evaluation Malnutrition Findings (Please click <Entered> for more info): Nutritional Asmnt/Malnutrition Start: 06/03/18 11: 57 Text: Status: Complete Freq: Protocol: Document 06/03/18 12:44 ELEONORA (Rec: 06/03/18 12:48 ELEONORA [email or web address]) Nutritional Asmnt/Malnutrition Patient General Information Nutritional Screening Moderate Risk Pertinent Medical Hx/Surgical Hx no sig medical hx, appendectomy, smokes about 15 cigarettes a day Subjective Information Pt seen lying in bed at time of visit, stating appetite so so. Pt consumed few breakfast today, has no food preference to give. Per EMR, PO intake 25 -50%. Per nurse, pt has DVT to right arm. Current Diet Order/ Nutrition Support regular Pertinent Medications vancomycin Pertinent Labs 05/30 Na 134, glucose 145, Ca 8. 4 Nutritional Hx/Data Height 1.83 m Height (Calculated Centimeters) 182.9 Current Weight (lbs) 87.09 kg Weight (Calculated Kilograms) 87.1 Weight (Calculated Grams) 79875.7 [place] Body Weight 178 Body Mass Index (BMI) 26.0 Weight Status Overweight GI Symptoms GI Symptoms None Last BM not indicated Difficult in: None Skin Integrity/Comment: intact Current %PO Poor (25-49%) Estimated Nutritional Goals BEE in Kcals: Using Current wt Calories/Kcals/Kg 25-30 based IBW 81kg Kcals Calculated 1556-1629 Protein: Using Current wt Protein g/k Protein Calculated 81 Fluid: ml 2024-2430ml (1ml/kcal) Nutritional Problem 1. Problem Problem inadequate food intake Etiology decreased appetite Signs/Symptoms: PO intake 25-30% Malnutrition Alert Is there a minimum of two criteria No selected? Query Text:Check all the applicable criteria. A minimum of two criteria are recommended for diagnosis of either severe or non-severe malnutrition. Malnutrition Related to Morbid Obesity Malnutrition related to morbid obesity No Intervention/Recommendation Comments 1. Continue with current diet as ordered. Encouraged oral intake. 2. Monitor PO intake, wt, labs and skin integrity 3. F/U as moderate risk in 3-5 days, 06/06-06/08, PO check Expected Outcomes/Goals Expected Outcomes/Goals 1. PO intake to meet at least 75% of nutritional needs. 2. Wt stability, skin to remain intact, labs to approach WNL.
[2018-06-18] MEDS: Albuterol/Ipratropium Neb 3 ML AERS HHN SCH ×4 (00:09→19:37)
[2018-06-18 08:19] LABS: HEMATOCRIT 36.9 % (41.0-60); MEAN PLATELET VOLUME 6.7 fl
[2018-06-18 08:23] LABS: HEMOGLOBIN 12.4 gm/dL (12-16); MEAN CELL VOLUME 88.2 fl (80-99); MEAN CORPUSCULAR HEMOGLOBIN 29.6 pg (26.0-30.0); MEAN CORPUSCULAR HGB CONC 33.6 pg (28.0-36.0); PLATELET COUNT 510 Th/cmm (150-400); RED BLOOD COUNT 4.19 Mil/cmm (4.30-5.70); WHITE BLOOD COUNT 4.6 Th/cmm (4.8-10.8)
[2018-06-18] MEDS: Enoxaparin 80 mg/0.8 mL 0.8mL Syr SUBQ SCH ×2 (08:29→20:28)
[2018-06-18] MEDS: Lactobacillus Rhamnosus GG 15 Billion CFU CAP.SPRINK PO SCH (08:29)
[2018-06-18 09:39] LABS: BAND NEUTROPHILE 1 % (0-10); BASOPHIL 0 % (0-3); EOSINOPHIL 1 % (0-5); LYMPHOCYTE 30 % (20-50); MONOCYTE 3 % (2-10); NEUTROPHILS 65 % (40-80)
[2018-06-18 09:41] LABS: PLATELET ESTIMATE INCREASED PLATELETS (NORMAL)
--- NOTE | 2018-06-18 13:34 | Infectious Disease Prog Note ---
Infectious Disease Subjective - Review of Systems Service Date: 06/18/18 Subjective: no fevers. Infectious Disease Objective - Results Result Diagrams: 06/18/18 08:06 06/14/18 04:40 Recent Labs: Laboratory Last Values WBC 4.6 Th/cmm (4.8-10.8) L 06/18/18 08:06 RBC 4.19 Mil/cmm (4.30-5.70) L 06/18/18 08:06 Hgb 12.4 gm/dL (12-16) 06/18/18 08:06 Hct 36.9 % (41.0-60) L 06/18/18 08:06 MCV 88.2 fl (80-99) 06/18/18 08:06 MCH 29.6 pg (26.0-30.0) 06/18/18 08:06 MCHC Differential 33.6 pg (28.0-36.0) 06/18/18 08:06 RDW 13.0 % (11.5-20.0) 06/18/18 08:06 Plt Count 510 Th/cmm (150-400) H 06/18/18 08:06 MPV 6.7 fl 06/18/18 08:06 Add Manual Diff YES 06/18/18 08:06 Neutrophils % 59.7 % (40.0-80.0) 06/12/18 04:40 Band Neutrophils % 1 % (0-10) 06/18/18 08:06 Lymphocytes % 23.2 % (20.0-50.0) 06/12/18 04:40 Monocytes % 8.7 % (2.0-10.0) 06/12/18 04:40 Eosinophils % 7.6 % (0.0-5.0) H 06/12/18 04:40 Basophils % 0.8 % (0.0-2.0) 06/12/18 04:40 Neutrophils (Manual) 65 % (40-80) 06/18/18 08:06 Lymphocytes 30 % (20-50) 06/18/18 08:06 Monocytes 3 % (2-10) 06/18/18 08:06 Eosinophils 1 % (0-5) 06/18/18 08:06 Basophils 0 % (0-3) 06/18/18 08:06 Atypical Lymphocytes 5 % 06/14/18 04:40 Platelet Estimate INCREASED PLATELETS (NORMAL) 06/18/18 08:06 PT 10.8 SECONDS (9.5-11.5) 06/05/18 08:00 INR 1.04 (0.5-1.4) 06/05/18 08:00 PTT (Actin FS) 28.2 SECONDS (26.0-38.0) 06/05/18 08:00 D-Dimer 1240 ng/mL (100-400) H 05/30/18 10:00 Sodium 136 mEq/L (136-145) 06/14/18 04:40 Potassium 3.9 mEq/L (3.5-5.1) 06/14/18 04:40 Chloride 102 mEq/L (98-107) 06/14/18 04:40 Carbon Dioxide 26.8 mEq/L (21.0-31.0) 06/14/18 04:40 Anion Gap 11.1 (7.0-16.0) 06/14/18 04:40 BUN 10 mg/dL (7-25) 06/14/18 04:40 Creatinine 0.8 mg/dL (0.7-1.3) 06/14/18 04:40 Est GFR ( Amer) > 60.0 ml/min (>90) 06/14/18 04:40 Est GFR (Non-Af Amer) > 60.0 ml/min 06/14/18 04:40 BUN/Creatinine Ratio 12.5 06/14/18 04:40 Glucose 111 mg/dL (70-105) H 06/14/18 04:40 POC Glucose 100 MG/DL (70 - 105) 05/30/18 16:22 Whole Bld Lactic Acid 0.88 mmol/L (0.60-1.99) 06/07/18 00:10 Calcium 8.9 mg/dL (8.6-10.3) 06/14/18 04:40 Total Bilirubin 0.3 mg/dL (0.3-1.0) 06/14/18 04:40 AST 24 U/L (13-39) 06/14/18 04:40 ALT 41 U/L (7-52) 06/14/18 04:40 Alkaline Phosphatase 72 U/L (34-104) 06/14/18 04:40 Troponin I < 0.01 ng/mL (0.01-0.05) L 05/30/18 10:13 Total Protein 6.1 gm/dL (6.0-8.3) 06/14/18 04:40 Albumin 2.9 gm/dL (4.2-5.5) L 06/14/18 04:40 Globulin 3.2 gm/dL 06/14/18 04:40 Albumin/Globulin Ratio 0.9 (1.0-1.8) L 06/14/18 04:40 Urine Source CLEAN C 06/07/18 00:45 Urine Color YELLOW 06/07/18 00:45 Urine Clarity CLEAR (CLEAR) 06/07/18 00:45 Urine pH 7.0 (4.6 - 8.0) 06/07/18 00:45 Ur Specific [place] 1.015 (1.005-1.030) 06/07/18 00:45 Urine Protein NEGATIVE mg/dL (NEGATIVE) 06/07/18 00:45 Urine Glucose (UA) NEGATIVE mg/dL (NEGATIVE) 06/07/18 00:45 Urine Ketones NEGATIVE mg/dL (NEGATIVE) 06/07/18 00:45 Urine Blood NEGATIVE (NEGATIVE) 06/07/18 00:45 Urine Nitrate NEGATIVE (NEGATIVE) 06/07/18 00:45 Urine Bilirubin NEGATIVE (NEGATIVE) 06/07/18 00:45 Urine Urobilinogen 0.2 E.U./dL (0.2 - 1.0) 06/07/18 00:45 Ur Leukocyte Esterase NEGATIVE (NEGATIVE) 06/07/18 00:45 Urine WBC 0-2 /hpf (0-5) 06/07/18 00:45 Ur Epithelial Cells OCCASIONAL /lpf (FEW) 06/07/18 00:45 Urine Bacteria OCCASIONAL /hpf (NONE SEEN) 06/07/18 00:45 Urine Mucus FEW /lpf (FEW) 06/07/18 00:45 Fluid Glucose 106.0 mg/dL 06/05/18 10:45 Fluid Total Protein 3.3 g/dL 06/05/18 10:45 Fluid LDH 579 U/L 06/05/18 10:45 Vancomycin Trough 16.1 ug/mL (5-10) H 06/06/18 09:00 Coccidioides Ab Negative (Neg:<1:2) 06/10/18 04:05 Hepatitis A IgM Ab Negative (Negative) 06/10/18 04:05 Hep Bs Antigen Negative (Negative) 06/10/18 04:05 Hep B Core IgM Ab Negative (Negative) 06/10/18 04:05 Hepatitis C Antibody <0.1 s/co ratio (0.0-0.9) 06/10/18 04:05 HIV 1&2 Antibody Screen NEGATIVE (NEG) 06/07/18 04:15 TB (QFT) Gold In Tube SEE ATTACHED RESULT 06/06/18 20:20 TB Test (QFT) Mitogen SEE ATTACHED RESULT 06/06/18 20:20 TB Test (QFT) Antigen SEE ATTACHED RESULT 06/06/18 20:20 TB Test TB - Nil SEE ATTACHED RESULT 06/06/18 20:20 TB Test (QFT) Interp SEE ATTACHED RESULT 06/06/18 20:20 - Physical Exam Vitals and I&O: Vital Signs Temp 98.2 F 06/18/18 12:00 Pulse 88 06/18/18 12:00 Resp 18 06/18/18 12:00 BP 94/58 06/18/18 12:00 Pulse Ox 95 06/18/18 12:00 Intake & Output 06/17/18 06/18/18 06/18/18 18:59 06:59 18:59 Intake Total 240 Balance 240 Weight (lbs) 78.018 kg 78.018 kg Intake: Oral 240 Other: Weight Source Bedscale Bedscale Active Medications: Current Medications Acetaminophen (Tylenol Extra Strength) 500 mg PO Q6HR PRN PRN Reason: FEVER Stop: 07/29/18 17:21 Last Admin: 06/13/18 21:48 Dose: 500 mg Albuterol/Ipratropium (Duoneb Neb) 3 ml HHN Q6HRT ANANDA Stop: 07/31/18 18:59 Last Admin: 06/18/18 13:24 Dose: 3 ml Diphenhydramine HCl (Benadryl) 25 mg PO Q6HR PRN PRN Reason: Itching Stop: 08/06/18 17:21 Last Admin: 06/09/18 21:05 Dose: 25 mg Enoxaparin Sodium (Lovenox) 80 mg SUBQ Q12HR ANANDA Stop: 08/14/18 20:59 Last Admin: 06/18/18 08:29 Dose: 80 mg Ibuprofen (Motrin) 800 mg PO TID PRN PRN Reason: MILD TO MOD. PAIN Stop: 07/29/18 17:16 Last Admin: 06/08/18 12:24 Dose: 800 mg Lactobacillus Rhamnosus (Culturelle 15b) 1 each PO DAILY ANANDA Stop: 08/04/18 08:59 Last Admin: 06/18/18 08:29 Dose: 1 each Levofloxacin (Levaquin) 500 mg PO DAILY@1300 ANANDA Stop: 08/10/18 12:59 Last Admin: 06/18/18 12:46 Dose: 500 mg Miscellaneous (Probiotic Screen) 1 ea PRN PRN PRN Reason: PROTOCOL Stop: 08/03/18 09:44 Miscellaneous (Lovenox Subq Per Pharmacy) 1 [facility] PRN ANANDA; Protocol Stop: 08/09/18 16:59 Ondansetron HCl (Zofran) 4 mg IV Q6H PRN PRN Reason: NAUSEA Stop: 07/29/18 17:29 Zolpidem Tartrate (Ambien) 10 mg PO HS PRN PRN Reason: Insomnia Stop: 08/10/18 14:43 General: no acute distress, well developed, well nourished HEENT: atraumatic, normocephalic, PERRLA, EOMI, moist mucous membrane Neck: supple, no thyromegaly Cardiovascular: S1S2, regular, no systolic murmur Lungs: no clear to auscultation bilaterally, no clear to percussion Abdomen: soft, no tender, no distended, no hepatomegaly Extremities: no cyanosis, no clubbing, no edema Neurological: awake, alert, oriented Skin: intact - Procedures Procedures: Procedures Procedure Code Date DRAINAGE OF RIGHT PLEURAL CAVITY, PERC APPROACH, DIAGN [id number] 05/30/18 DRAINAGE OF RIGHT UPPER LUNG LOBE, ENDO, DIAGN [id number] 05/30/18 Infectious Disease Assmt/Plan - Assessment Assessment: 1. Pneumonmia. RUL, one AFB smear positive on culture, smears are negative >2 weeks. it was finalized as M. avium. 2. PE. 3. DVT. 4. Hemorrhagic pleural effusion. 5. Rash. Resolved. - Plan Plan: Continue levaquin. DW the public health nurse Dahlia Sonja at [phone] and she had agreed for removing the airborne isolation and cleared for discharge. DC airborne isolation. Patient does not meet criteria of MAC pneumonia at this time. TB is ruled out. May f/u cxr in one month or so, if there is no resolution. or pending culture grow same bacteria and meets criteria, then treat accordingly. DW patient and his sister Ms Danielle Willson in detail. Nutritional Asmnt/Malnutr-PDOC - Dietary Evaluation Malnutrition Findings (Please click <Entered> for more info): Nutritional Asmnt/Malnutrition Start: 06/03/18 11: 57 Text: Status: Complete Freq: Protocol: Document 06/03/18 12:44 LCHENG (Rec: 06/03/18 12:48 LCHENG [email or web address]) Nutritional Asmnt/Malnutrition Patient General Information Nutritional Screening Moderate Risk Pertinent Medical Hx/Surgical Hx no sig medical hx, appendectomy, smokes about 15 cigarettes a day Subjective Information Pt seen lying in bed at time of visit, stating appetite so so. Pt consumed few breakfast today, has no food preference to give. Per EMR, PO intake 25 -50%. Per nurse, pt has DVT to right arm. Current Diet Order/ Nutrition Support regular Pertinent Medications vancomycin Pertinent Labs 05/30 Na 134, glucose 145, Ca 8. 4 Nutritional Hx/Data Height 1.83 m Height (Calculated Centimeters) 182.9 Current Weight (lbs) 87.09 kg Weight (Calculated Kilograms) 87.1 Weight (Calculated Grams) 66234.7 [place] Body Weight 178 Body Mass Index (BMI) 26.0 Weight Status Overweight GI Symptoms GI Symptoms None Last BM not indicated Difficult in: None Skin Integrity/Comment: intact Current %PO Poor (25-49%) Estimated Nutritional Goals BEE in Kcals: Using Current wt Calories/Kcals/Kg 25-30 based IBW 81kg Kcals Calculated 4067-4238 Protein: Using Current wt Protein g/k Protein Calculated 81 Fluid: ml 2024-243ml (1ml/kcal) Nutritional Problem 1. Problem Problem inadequate food intake Etiology decreased appetite Signs/Symptoms: PO intake 25-30% Malnutrition Alert Is there a minimum of two criteria No selected? Query Text:Check all the applicable criteria. A minimum of two criteria are recommended for diagnosis of either severe or non-severe malnutrition. Malnutrition Related to Morbid Obesity Malnutrition related to morbid obesity No Intervention/Recommendation Comments 1. Continue with current diet as ordered. Encouraged oral intake. 2. Monitor PO intake, wt, labs and skin integrity 3. F/U as moderate risk in 3-5 days, 06/06-06/08, PO check Expected Outcomes/Goals Expected Outcomes/Goals 1. PO intake to meet at least 75% of nutritional needs. 2. Wt stability, skin to remain intact, labs to approach WNL.
--- NOTE | 2018-06-18 21:07 | General Progress Note ---
Subjective - Review of Systems Service Date: 06/18/18 Subjective: Patient seen and examined afebrile Objective - Results Result Diagrams: 06/18/18 08:06 06/14/18 04:40 Recent Labs: Laboratory Last Values WBC 4.6 Th/cmm (4.8-10.8) L 06/18/18 08:06 RBC 4.19 Mil/cmm (4.30-5.70) L 06/18/18 08:06 Hgb 12.4 gm/dL (12-16) 06/18/18 08:06 Hct 36.9 % (41.0-60) L 06/18/18 08:06 MCV 88.2 fl (80-99) 06/18/18 08:06 MCH 29.6 pg (26.0-30.0) 06/18/18 08:06 MCHC Differential 33.6 pg (28.0-36.0) 06/18/18 08:06 RDW 13.0 % (11.5-20.0) 06/18/18 08:06 Plt Count 510 Th/cmm (150-400) H 06/18/18 08:06 MPV 6.7 fl 06/18/18 08:06 Add Manual Diff YES 06/18/18 08:06 Neutrophils % 59.7 % (40.0-80.0) 06/12/18 04:40 Band Neutrophils % 1 % (0-10) 06/18/18 08:06 Lymphocytes % 23.2 % (20.0-50.0) 06/12/18 04:40 Monocytes % 8.7 % (2.0-10.0) 06/12/18 04:40 Eosinophils % 7.6 % (0.0-5.0) H 06/12/18 04:40 Basophils % 0.8 % (0.0-2.0) 06/12/18 04:40 Neutrophils (Manual) 65 % (40-80) 06/18/18 08:06 Lymphocytes 30 % (20-50) 06/18/18 08:06 Monocytes 3 % (2-10) 06/18/18 08:06 Eosinophils 1 % (0-5) 06/18/18 08:06 Basophils 0 % (0-3) 06/18/18 08:06 Atypical Lymphocytes 5 % 06/14/18 04:40 Platelet Estimate INCREASED PLATELETS (NORMAL) 06/18/18 08:06 PT 10.8 SECONDS (9.5-11.5) 06/05/18 08:00 INR 1.04 (0.5-1.4) 06/05/18 08:00 PTT (Actin FS) 28.2 SECONDS (26.0-38.0) 06/05/18 08:00 D-Dimer 1240 ng/mL (100-400) H 05/30/18 10:00 Sodium 136 mEq/L (136-145) 06/14/18 04:40 Potassium 3.9 mEq/L (3.5-5.1) 06/14/18 04:40 Chloride 102 mEq/L (98-107) 06/14/18 04:40 Carbon Dioxide 26.8 mEq/L (21.0-31.0) 06/14/18 04:40 Anion Gap 11.1 (7.0-16.0) 06/14/18 04:40 BUN 10 mg/dL (7-25) 06/14/18 04:40 Creatinine 0.8 mg/dL (0.7-1.3) 06/14/18 04:40 Est GFR ( Amer) > 60.0 ml/min (>90) 06/14/18 04:40 Est GFR (Non-Af Amer) > 60.0 ml/min 06/14/18 04:40 BUN/Creatinine Ratio 12.5 06/14/18 04:40 Glucose 111 mg/dL (70-105) H 06/14/18 04:40 POC Glucose 100 MG/DL (70 - 105) 05/30/18 16:22 Whole Bld Lactic Acid 0.88 mmol/L (0.60-1.99) 06/07/18 00:10 Calcium 8.9 mg/dL (8.6-10.3) 06/14/18 04:40 Total Bilirubin 0.3 mg/dL (0.3-1.0) 06/14/18 04:40 AST 24 U/L (13-39) 06/14/18 04:40 ALT 41 U/L (7-52) 06/14/18 04:40 Alkaline Phosphatase 72 U/L (34-104) 06/14/18 04:40 Troponin I < 0.01 ng/mL (0.01-0.05) L 05/30/18 10:13 Total Protein 6.1 gm/dL (6.0-8.3) 06/14/18 04:40 Albumin 2.9 gm/dL (4.2-5.5) L 06/14/18 04:40 Globulin 3.2 gm/dL 06/14/18 04:40 Albumin/Globulin Ratio 0.9 (1.0-1.8) L 06/14/18 04:40 Urine Source CLEAN C 06/07/18 00:45 Urine Color YELLOW 06/07/18 00:45 Urine Clarity CLEAR (CLEAR) 06/07/18 00:45 Urine pH 7.0 (4.6 - 8.0) 06/07/18 00:45 Ur Specific [place] 1.015 (1.005-1.030) 06/07/18 00:45 Urine Protein NEGATIVE mg/dL (NEGATIVE) 06/07/18 00:45 Urine Glucose (UA) NEGATIVE mg/dL (NEGATIVE) 06/07/18 00:45 Urine Ketones NEGATIVE mg/dL (NEGATIVE) 06/07/18 00:45 Urine Blood NEGATIVE (NEGATIVE) 06/07/18 00:45 Urine Nitrate NEGATIVE (NEGATIVE) 06/07/18 00:45 Urine Bilirubin NEGATIVE (NEGATIVE) 06/07/18 00:45 Urine Urobilinogen 0.2 E.U./dL (0.2 - 1.0) 06/07/18 00:45 Ur Leukocyte Esterase NEGATIVE (NEGATIVE) 06/07/18 00:45 Urine WBC 0-2 /hpf (0-5) 06/07/18 00:45 Ur Epithelial Cells OCCASIONAL /lpf (FEW) 06/07/18 00:45 Urine Bacteria OCCASIONAL /hpf (NONE SEEN) 06/07/18 00:45 Urine Mucus FEW /lpf (FEW) 06/07/18 00:45 Fluid Glucose 106.0 mg/dL 06/05/18 10:45 Fluid Total Protein 3.3 g/dL 06/05/18 10:45 Fluid LDH 579 U/L 06/05/18 10:45 Vancomycin Trough 16.1 ug/mL (5-10) H 06/06/18 09:00 Coccidioides Ab Negative (Neg:<1:2) 06/10/18 04:05 Hepatitis A IgM Ab Negative (Negative) 06/10/18 04:05 Hep Bs Antigen Negative (Negative) 06/10/18 04:05 Hep B Core IgM Ab Negative (Negative) 06/10/18 04:05 Hepatitis C Antibody <0.1 s/co ratio (0.0-0.9) 06/10/18 04:05 HIV 1&2 Antibody Screen NEGATIVE (NEG) 06/07/18 04:15 TB (QFT) Gold In Tube SEE ATTACHED RESULT 06/06/18 20:20 TB Test (QFT) Mitogen SEE ATTACHED RESULT 06/06/18 20:20 TB Test (QFT) Antigen SEE ATTACHED RESULT 06/06/18 20:20 TB Test TB - Nil SEE ATTACHED RESULT 06/06/18 20:20 TB Test (QFT) Interp SEE ATTACHED RESULT 06/06/18 20:20 - Physical Exam Vitals and I&O: Vital Signs Temp 98.4 F 06/18/18 16:00 Pulse 98 06/18/18 19:38 Resp 16 06/18/18 19:38 BP 92/56 06/18/18 16:00 Pulse Ox 97 06/18/18 19:38 Intake & Output 06/18/18 06/18/18 06/19/18 06:59 18:59 06:59 Intake Total 240 650 Balance 240 650 Weight (lbs) 78.018 kg 78.018 kg Intake: Oral 240 650 Other: # Voids 4 Weight Source Bedscale Estimated Active Medications: Current Medications Acetaminophen (Tylenol Extra Strength) 500 mg PO Q6HR PRN PRN Reason: FEVER Stop: 07/29/18 17:21 Last Admin: 06/13/18 21:48 Dose: 500 mg Albuterol/Ipratropium (Duoneb Neb) 3 ml HHN Q6HRT ANANDA Stop: 07/31/18 18:59 Last Admin: 06/18/18 19:37 Dose: 3 ml Diphenhydramine HCl (Benadryl) 25 mg PO Q6HR PRN PRN Reason: Itching Stop: 08/06/18 17:21 Last Admin: 06/09/18 21:05 Dose: 25 mg Enoxaparin Sodium (Lovenox) 80 mg SUBQ Q12HR ANANDA Stop: 08/14/18 20:59 Last Admin: 06/18/18 20:28 Dose: 80 mg Ibuprofen (Motrin) 800 mg PO TID PRN PRN Reason: MILD TO MOD. PAIN Stop: 07/29/18 17:16 Last Admin: 06/08/18 12:24 Dose: 800 mg Lactobacillus Rhamnosus (Culturelle 15b) 1 each PO DAILY ANANDA Stop: 08/04/18 08:59 Last Admin: 06/18/18 08:29 Dose: 1 each Levofloxacin (Levaquin) 500 mg PO DAILY@1300 ANANDA Stop: 08/10/18 12:59 Last Admin: 06/18/18 12:46 Dose: 500 mg Lorazepam (Ativan) 1 mg PO Q6HR PRN; Protocol PRN Reason: Sleeplessness Stop: 08/17/18 17:07 Miscellaneous (Probiotic Screen) 1 ea PRN PRN PRN Reason: PROTOCOL Stop: 08/03/18 09:44 Miscellaneous (Lovenox Subq Per Pharmacy) 1 ea PRN ANANDA; Protocol Stop: 08/09/18 16:59 Ondansetron HCl (Zofran) 4 mg IV Q6H PRN PRN Reason: NAUSEA Stop: 07/29/18 17:29 Zolpidem Tartrate (Ambien) 10 mg PO HS PRN PRN Reason: Insomnia Stop: 08/10/18 14:43 General: Alert Cardiovascular: Regular rate Lungs: Clear to auscultation Extremities: no Edema Skin: Rash (on the chest wall area) - Procedures Procedures: Procedures Procedure Code Date DRAINAGE OF RIGHT PLEURAL CAVITY, PERC APPROACH, DIAGN [id number] 05/30/18 DRAINAGE OF RIGHT UPPER LUNG LOBE, ENDO, DIAGN [id number] 05/30/18 Assessment/Plan - Assessment Assessment: Bilateral PE pneumonia s/p Hemorrhagic pleural effusion s/p thoracentesis Right UE DVT on anticoagulation Dermatitis better M avium infection per sputum culture (sample 05/21/18) Insomnia - Plan Plan: Patient wishes to be discharged home and would like to f/u with [facility] outpatient Will discuss with ID and Pulmonary re: DC plan Nutritional Asmnt/Malnutr-PDOC - Dietary Evaluation Malnutrition Findings (Please click <Entered> for more info): Nutritional Asmnt/Malnutrition Start: 06/03/18 11: 57 Text: Status: Complete Freq: Protocol: Document 06/03/18 12:44 LCHEN (Rec: 06/03/18 12:48 [email or web address]) Nutritional Asmnt/Malnutrition Patient General Information Nutritional Screening Moderate Risk Pertinent Medical Hx/Surgical Hx no sig medical hx, appendectomy, smokes about 15 cigarettes a day Subjective Information Pt seen lying in bed at time of visit, stating appetite so so. Pt consumed few breakfast today, has no food preference to give. Per EMR, PO intake 25 -50%. Per nurse, pt has DVT to right arm. Current Diet Order/ Nutrition Support regular Pertinent Medications vancomycin Pertinent Labs 05/30 Na 134, glucose 145, Ca 8. 4 Nutritional Hx/Data Height 1.83 m Height (Calculated Centimeters) 182.9 Current Weight (lbs) 87.09 kg Weight (Calculated Kilograms) 87.1 Weight (Calculated Grams) 34488.7 [place] Body Weight 178 Body Mass Index (BMI) 26.0 Weight Status Overweight GI Symptoms GI Symptoms None Last BM not indicated Difficult in: None Skin Integrity/Comment: intact Current %PO Poor (25-49%) Estimated Nutritional Goals BEE in Kcals: Using Current wt Calories/Kcals/Kg 25-30 based IBW 81kg Kcals Calculated 8240-7754 Protein: Using Current wt Protein g/k Protein Calculated 81 Fluid: ml 2024-2430ml (1ml/kcal) Nutritional Problem 1. Problem Problem inadequate food intake Etiology decreased appetite Signs/Symptoms: PO intake 25-30% Malnutrition Alert Is there a minimum of two criteria No selected? Query Text:Check all the applicable criteria. A minimum of two criteria are recommended for diagnosis of either severe or non-severe malnutrition. Malnutrition Related to Morbid Obesity Malnutrition related to morbid obesity No Intervention/Recommendation Comments 1. Continue with current diet as ordered. Encouraged oral intake. 2. Monitor PO intake, wt, labs and skin integrity 3. F/U as moderate risk in 3-5 days, 06/06-06/08, PO check Expected Outcomes/Goals Expected Outcomes/Goals 1. PO intake to meet at least 75% of nutritional needs. 2. Wt stability, skin to remain intact, labs to approach WNL.
[2018-06-19] MEDS: Albuterol/Ipratropium Neb 3 ML AERS HHN SCH ×4 (01:18→18:37)
--- NOTE | 2018-06-19 08:02 | Diagnostic Imaging Report ---
Portable chest x-ray HISTORY: Shortness of breath Compared with prior exam of June 17, 2018, no change with persistent opacification of the right upper hemithorax associated with pleural and parenchymal changes. Pleural reaction remains about the right costophrenic angle. IMPRESSION: No change in the pulmonary status.
[2018-06-19] MEDS: Enoxaparin 80 mg/0.8 mL 0.8mL Syr SUBQ SCH ×2 (08:23→20:43)
[2018-06-19] MEDS: Lactobacillus Rhamnosus GG 15 Billion CFU CAP.SPRINK PO SCH (08:23)
--- NOTE | 2018-06-19 11:34 | General Progress Note ---
Subjective - Review of Systems Service Date: 06/19/18 Subjective: no chest pain no bleeding not short of breath Objective - Results Result Diagrams: 06/18/18 08:06 06/14/18 04:40 Recent Labs: Laboratory Last Values WBC 4.6 Th/cmm (4.8-10.8) L 06/18/18 08:06 RBC 4.19 Mil/cmm (4.30-5.70) L 06/18/18 08:06 Hgb 12.4 gm/dL (12-16) 06/18/18 08:06 Hct 36.9 % (41.0-60) L 06/18/18 08:06 MCV 88.2 fl (80-99) 06/18/18 08:06 MCH 29.6 pg (26.0-30.0) 06/18/18 08:06 MCHC Differential 33.6 pg (28.0-36.0) 06/18/18 08:06 RDW 13.0 % (11.5-20.0) 06/18/18 08:06 Plt Count 510 Th/cmm (150-400) H 06/18/18 08:06 MPV 6.7 fl 06/18/18 08:06 Add Manual Diff YES 06/18/18 08:06 Neutrophils % 59.7 % (40.0-80.0) 06/12/18 04:40 Band Neutrophils % 1 % (0-10) 06/18/18 08:06 Lymphocytes % 23.2 % (20.0-50.0) 06/12/18 04:40 Monocytes % 8.7 % (2.0-10.0) 06/12/18 04:40 Eosinophils % 7.6 % (0.0-5.0) H 06/12/18 04:40 Basophils % 0.8 % (0.0-2.0) 06/12/18 04:40 Neutrophils (Manual) 65 % (40-80) 06/18/18 08:06 Lymphocytes 30 % (20-50) 06/18/18 08:06 Monocytes 3 % (2-10) 06/18/18 08:06 Eosinophils 1 % (0-5) 06/18/18 08:06 Basophils 0 % (0-3) 06/18/18 08:06 Atypical Lymphocytes 5 % 06/14/18 04:40 Platelet Estimate INCREASED PLATELETS (NORMAL) 06/18/18 08:06 PT 10.8 SECONDS (9.5-11.5) 06/05/18 08:00 INR 1.04 (0.5-1.4) 06/05/18 08:00 PTT (Actin FS) 28.2 SECONDS (26.0-38.0) 06/05/18 08:00 D-Dimer 1240 ng/mL (100-400) H 05/30/18 10:00 Sodium 136 mEq/L (136-145) 06/14/18 04:40 Potassium 3.9 mEq/L (3.5-5.1) 06/14/18 04:40 Chloride 102 mEq/L (98-107) 06/14/18 04:40 Carbon Dioxide 26.8 mEq/L (21.0-31.0) 06/14/18 04:40 Anion Gap 11.1 (7.0-16.0) 06/14/18 04:40 BUN 10 mg/dL (7-25) 06/14/18 04:40 Creatinine 0.8 mg/dL (0.7-1.3) 06/14/18 04:40 Est GFR ( Amer) > 60.0 ml/min (>90) 06/14/18 04:40 Est GFR (Non-Af Amer) > 60.0 ml/min 06/14/18 04:40 BUN/Creatinine Ratio 12.5 06/14/18 04:40 Glucose 111 mg/dL (70-105) H 06/14/18 04:40 POC Glucose 100 MG/DL (70 - 105) 05/30/18 16:22 Whole Bld Lactic Acid 0.88 mmol/L (0.60-1.99) 06/07/18 00:10 Calcium 8.9 mg/dL (8.6-10.3) 06/14/18 04:40 Total Bilirubin 0.3 mg/dL (0.3-1.0) 06/14/18 04:40 AST 24 U/L (13-39) 06/14/18 04:40 ALT 41 U/L (7-52) 06/14/18 04:40 Alkaline Phosphatase 72 U/L (34-104) 06/14/18 04:40 Troponin I < 0.01 ng/mL (0.01-0.05) L 05/30/18 10:13 Total Protein 6.1 gm/dL (6.0-8.3) 06/14/18 04:40 Albumin 2.9 gm/dL (4.2-5.5) L 06/14/18 04:40 Globulin 3.2 gm/dL 06/14/18 04:40 Albumin/Globulin Ratio 0.9 (1.0-1.8) L 06/14/18 04:40 Urine Source CLEAN C 06/07/18 00:45 Urine Color YELLOW 06/07/18 00:45 Urine Clarity CLEAR (CLEAR) 06/07/18 00:45 Urine pH 7.0 (4.6 - 8.0) 06/07/18 00:45 Ur Specific [place] 1.015 (1.005-1.030) 06/07/18 00:45 Urine Protein NEGATIVE mg/dL (NEGATIVE) 06/07/18 00:45 Urine Glucose (UA) NEGATIVE mg/dL (NEGATIVE) 06/07/18 00:45 Urine Ketones NEGATIVE mg/dL (NEGATIVE) 06/07/18 00:45 Urine Blood NEGATIVE (NEGATIVE) 06/07/18 00:45 Urine Nitrate NEGATIVE (NEGATIVE) 06/07/18 00:45 Urine Bilirubin NEGATIVE (NEGATIVE) 06/07/18 00:45 Urine Urobilinogen 0.2 E.U./dL (0.2 - 1.0) 06/07/18 00:45 Ur Leukocyte Esterase NEGATIVE (NEGATIVE) 06/07/18 00:45 Urine WBC 0-2 /hpf (0-5) 06/07/18 00:45 Ur Epithelial Cells OCCASIONAL /lpf (FEW) 06/07/18 00:45 Urine Bacteria OCCASIONAL /hpf (NONE SEEN) 06/07/18 00:45 Urine Mucus FEW /lpf (FEW) 06/07/18 00:45 Fluid Glucose 106.0 mg/dL 06/05/18 10:45 Fluid Total Protein 3.3 g/dL 06/05/18 10:45 Fluid LDH 579 U/L 06/05/18 10:45 Vancomycin Trough 16.1 ug/mL (5-10) H 06/06/18 09:00 Coccidioides Ab Negative (Neg:<1:2) 06/10/18 04:05 Hepatitis A IgM Ab Negative (Negative) 06/10/18 04:05 Hep Bs Antigen Negative (Negative) 06/10/18 04:05 Hep B Core IgM Ab Negative (Negative) 06/10/18 04:05 Hepatitis C Antibody <0.1 s/co ratio (0.0-0.9) 06/10/18 04:05 HIV 1&2 Antibody Screen NEGATIVE (NEG) 06/07/18 04:15 TB (QFT) Gold In Tube SEE ATTACHED RESULT 06/06/18 20:20 TB Test (QFT) Mitogen SEE ATTACHED RESULT 06/06/18 20:20 TB Test (QFT) Antigen SEE ATTACHED RESULT 06/06/18 20:20 TB Test TB - Nil SEE ATTACHED RESULT 06/06/18 20:20 TB Test (QFT) Interp SEE ATTACHED RESULT 06/06/18 20:20 - Physical Exam Vitals and I&O: Vital Signs Temp 97.1 F 06/19/18 08:00 Pulse 92 06/19/18 08:00 Resp 18 06/19/18 08:00 BP 100/58 06/19/18 08:00 Pulse Ox 94 06/19/18 08:00 Intake & Output 06/18/18 06/19/18 06/19/18 18:59 06:59 18:59 Intake Total 650 Balance 650 Weight (lbs) 78.018 kg Intake: Oral 650 Other: # Voids 4 Weight Source Estimated Active Medications: Current Medications Acetaminophen (Tylenol Extra Strength) 500 mg PO Q6HR PRN PRN Reason: FEVER Stop: 07/29/18 17:21 Last Admin: 06/13/18 21:48 Dose: 500 mg Albuterol/Ipratropium (Duoneb Neb) 3 ml HHN Q6HRT ANANDA Stop: 07/31/18 18:59 Last Admin: 06/19/18 07:10 Dose: 3 ml Diphenhydramine HCl (Benadryl) 25 mg PO Q6HR PRN PRN Reason: Itching Stop: 08/06/18 17:21 Last Admin: 06/09/18 21:05 Dose: 25 mg Enoxaparin Sodium (Lovenox) 80 mg SUBQ Q12HR ANANDA Stop: 08/14/18 20:59 Last Admin: 06/19/18 08:23 Dose: 80 mg Ibuprofen (Motrin) 800 mg PO TID PRN PRN Reason: MILD TO MOD. PAIN Stop: 07/29/18 17:16 Last Admin: 06/08/18 12:24 Dose: 800 mg Lactobacillus Rhamnosus (Culturelle 15b) 1 each PO DAILY ANANDA Stop: 08/04/18 08:59 Last Admin: 06/19/18 08:23 Dose: 1 each Levofloxacin (Levaquin) 500 mg PO DAILY@1300 ANANDA Stop: 08/10/18 12:59 Last Admin: 06/18/18 12:46 Dose: 500 mg Lorazepam (Ativan) 1 mg PO Q6HR PRN; Protocol PRN Reason: Sleeplessness Stop: 08/17/18 17:07 Miscellaneous (Probiotic Screen) 1 ea PRN PRN PRN Reason: PROTOCOL Stop: 08/03/18 09:44 Miscellaneous (Lovenox Subq Per Pharmacy) 1 [facility] PRN ANANDA; Protocol Stop: 08/09/18 16:59 Ondansetron HCl (Zofran) 4 mg IV Q6H PRN PRN Reason: NAUSEA Stop: 07/29/18 17:29 Zolpidem Tartrate (Ambien) 10 mg PO HS PRN PRN Reason: Insomnia Stop: 08/10/18 14:43 General: Alert HEENT: Atraumatic Neck: Supple Cardiovascular: Regular rate Lungs: Clear to auscultation Abdomen: Soft Extremities: no Edema Skin: Rash (on the chest wall area) - Procedures Procedures: Procedures Procedure Code Date DRAINAGE OF RIGHT PLEURAL CAVITY, PERC APPROACH, DIAGN [id number] 05/30/18 DRAINAGE OF RIGHT UPPER LUNG LOBE, ENDO, DIAGN [id number] 05/30/18 Assessment/Plan - Assessment Assessment: * right lung consolidation and effusion * multiple bilateral pulmonary emboli * right upper ext thrombosis Continue anticoagulation and antibiotics and follow imaging for resolution; bronchoscopy/biopsy 06/14 no endobronchial lesions hgb stable. . CXR stable/ persistent infilterate right upper lobe will need open lung biopsy or VATS if infilterate persists change Lovenox to Eliquis 5mg bid on discharge. Nutritional Asmnt/Malnutr-PDOC - Dietary Evaluation Malnutrition Findings (Please click <Entered> for more info): Nutritional Asmnt/Malnutrition Start: 06/03/18 11: 57 Text: Status: Complete Freq: Protocol: Document 06/03/18 12:44 LCHARJITG (Rec: 06/03/18 12:48 LCHARJITG [email or web address]) Nutritional Asmnt/Malnutrition Patient General Information Nutritional Screening Moderate Risk Pertinent Medical Hx/Surgical Hx no sig medical hx, appendectomy, smokes about 15 cigarettes a day Subjective Information Pt seen lying in bed at time of visit, stating appetite so so. Pt consumed few breakfast today, has no food preference to give. Per EMR, PO intake 25 -50%. Per nurse, pt has DVT to right arm. Current Diet Order/ Nutrition Support regular Pertinent Medications vancomycin Pertinent Labs 05/30 Na 134, glucose 145, Ca 8. 4 Nutritional Hx/Data Height 1.83 m Height (Calculated Centimeters) 182.9 Current Weight (lbs) 87.09 kg Weight (Calculated Kilograms) 87.1 Weight (Calculated Grams) 00741.7 [place] Body Weight 178 Body Mass Index (BMI) 26.0 Weight Status Overweight GI Symptoms GI Symptoms None Last BM not indicated Difficult in: None Skin Integrity/Comment: intact Current %PO Poor (25-49%) Estimated Nutritional Goals BEE in Kcals: Using Current wt Calories/Kcals/Kg 25-30 based IBW 81kg Kcals Calculated 4454-2953 Protein: Using Current wt Protein g/k Protein Calculated 81 Fluid: ml 2024-2430ml (1ml/kcal) Nutritional Problem 1. Problem Problem inadequate food intake Etiology decreased appetite Signs/Symptoms: PO intake 25-30% Malnutrition Alert Is there a minimum of two criteria No selected? Query Text:Check all the applicable criteria. A minimum of two criteria are recommended for diagnosis of either severe or non-severe malnutrition. Malnutrition Related to Morbid Obesity Malnutrition related to morbid obesity No Intervention/Recommendation Comments 1. Continue with current diet as ordered. Encouraged oral intake. 2. Monitor PO intake, wt, labs and skin integrity 3. F/U as moderate risk in 3-5 days, 06/06-06/08, PO check Expected Outcomes/Goals Expected Outcomes/Goals 1. PO intake to meet at least 75% of nutritional needs. 2. Wt stability, skin to remain intact, labs to approach WNL.
--- NOTE | 2018-06-19 12:10 | Infectious Disease Prog Note ---
Infectious Disease Subjective - Review of Systems Service Date: 06/19/18 Subjective: no fevers. Infectious Disease Objective - Results Result Diagrams: 06/18/18 08:06 06/14/18 04:40 Recent Labs: Laboratory Last Values WBC 4.6 Th/cmm (4.8-10.8) L 06/18/18 08:06 RBC 4.19 Mil/cmm (4.30-5.70) L 06/18/18 08:06 Hgb 12.4 gm/dL (12-16) 06/18/18 08:06 Hct 36.9 % (41.0-60) L 06/18/18 08:06 MCV 88.2 fl (80-99) 06/18/18 08:06 MCH 29.6 pg (26.0-30.0) 06/18/18 08:06 MCHC Differential 33.6 pg (28.0-36.0) 06/18/18 08:06 RDW 13.0 % (11.5-20.0) 06/18/18 08:06 Plt Count 510 Th/cmm (150-400) H 06/18/18 08:06 MPV 6.7 fl 06/18/18 08:06 Add Manual Diff YES 06/18/18 08:06 Neutrophils % 59.7 % (40.0-80.0) 06/12/18 04:40 Band Neutrophils % 1 % (0-10) 06/18/18 08:06 Lymphocytes % 23.2 % (20.0-50.0) 06/12/18 04:40 Monocytes % 8.7 % (2.0-10.0) 06/12/18 04:40 Eosinophils % 7.6 % (0.0-5.0) H 06/12/18 04:40 Basophils % 0.8 % (0.0-2.0) 06/12/18 04:40 Neutrophils (Manual) 65 % (40-80) 06/18/18 08:06 Lymphocytes 30 % (20-50) 06/18/18 08:06 Monocytes 3 % (2-10) 06/18/18 08:06 Eosinophils 1 % (0-5) 06/18/18 08:06 Basophils 0 % (0-3) 06/18/18 08:06 Atypical Lymphocytes 5 % 06/14/18 04:40 Platelet Estimate INCREASED PLATELETS (NORMAL) 06/18/18 08:06 PT 10.8 SECONDS (9.5-11.5) 06/05/18 08:00 INR 1.04 (0.5-1.4) 06/05/18 08:00 PTT (Actin FS) 28.2 SECONDS (26.0-38.0) 06/05/18 08:00 D-Dimer 1240 ng/mL (100-400) H 05/30/18 10:00 Sodium 136 mEq/L (136-145) 06/14/18 04:40 Potassium 3.9 mEq/L (3.5-5.1) 06/14/18 04:40 Chloride 102 mEq/L (98-107) 06/14/18 04:40 Carbon Dioxide 26.8 mEq/L (21.0-31.0) 06/14/18 04:40 Anion Gap 11.1 (7.0-16.0) 06/14/18 04:40 BUN 10 mg/dL (7-25) 06/14/18 04:40 Creatinine 0.8 mg/dL (0.7-1.3) 06/14/18 04:40 Est GFR ( Amer) > 60.0 ml/min (>90) 06/14/18 04:40 Est GFR (Non-Af Amer) > 60.0 ml/min 06/14/18 04:40 BUN/Creatinine Ratio 12.5 06/14/18 04:40 Glucose 111 mg/dL (70-105) H 06/14/18 04:40 POC Glucose 100 MG/DL (70 - 105) 05/30/18 16:22 Whole Bld Lactic Acid 0.88 mmol/L (0.60-1.99) 06/07/18 00:10 Calcium 8.9 mg/dL (8.6-10.3) 06/14/18 04:40 Total Bilirubin 0.3 mg/dL (0.3-1.0) 06/14/18 04:40 AST 24 U/L (13-39) 06/14/18 04:40 ALT 41 U/L (7-52) 06/14/18 04:40 Alkaline Phosphatase 72 U/L (34-104) 06/14/18 04:40 Troponin I < 0.01 ng/mL (0.01-0.05) L 05/30/18 10:13 Total Protein 6.1 gm/dL (6.0-8.3) 06/14/18 04:40 Albumin 2.9 gm/dL (4.2-5.5) L 06/14/18 04:40 Globulin 3.2 gm/dL 06/14/18 04:40 Albumin/Globulin Ratio 0.9 (1.0-1.8) L 06/14/18 04:40 Urine Source CLEAN C 06/07/18 00:45 Urine Color YELLOW 06/07/18 00:45 Urine Clarity CLEAR (CLEAR) 06/07/18 00:45 Urine pH 7.0 (4.6 - 8.0) 06/07/18 00:45 Ur Specific [place] 1.015 (1.005-1.030) 06/07/18 00:45 Urine Protein NEGATIVE mg/dL (NEGATIVE) 06/07/18 00:45 Urine Glucose (UA) NEGATIVE mg/dL (NEGATIVE) 06/07/18 00:45 Urine Ketones NEGATIVE mg/dL (NEGATIVE) 06/07/18 00:45 Urine Blood NEGATIVE (NEGATIVE) 06/07/18 00:45 Urine Nitrate NEGATIVE (NEGATIVE) 06/07/18 00:45 Urine Bilirubin NEGATIVE (NEGATIVE) 06/07/18 00:45 Urine Urobilinogen 0.2 E.U./dL (0.2 - 1.0) 06/07/18 00:45 Ur Leukocyte Esterase NEGATIVE (NEGATIVE) 06/07/18 00:45 Urine WBC 0-2 /hpf (0-5) 06/07/18 00:45 Ur Epithelial Cells OCCASIONAL /lpf (FEW) 06/07/18 00:45 Urine Bacteria OCCASIONAL /hpf (NONE SEEN) 06/07/18 00:45 Urine Mucus FEW /lpf (FEW) 06/07/18 00:45 Fluid Glucose 106.0 mg/dL 06/05/18 10:45 Fluid Total Protein 3.3 g/dL 06/05/18 10:45 Fluid LDH 579 U/L 06/05/18 10:45 Vancomycin Trough 16.1 ug/mL (5-10) H 06/06/18 09:00 Coccidioides Ab Negative (Neg:<1:2) 06/10/18 04:05 Hepatitis A IgM Ab Negative (Negative) 06/10/18 04:05 Hep Bs Antigen Negative (Negative) 06/10/18 04:05 Hep B Core IgM Ab Negative (Negative) 06/10/18 04:05 Hepatitis C Antibody <0.1 s/co ratio (0.0-0.9) 06/10/18 04:05 HIV 1&2 Antibody Screen NEGATIVE (NEG) 06/07/18 04:15 TB (QFT) Gold In Tube SEE ATTACHED RESULT 06/06/18 20:20 TB Test (QFT) Mitogen SEE ATTACHED RESULT 06/06/18 20:20 TB Test (QFT) Antigen SEE ATTACHED RESULT 06/06/18 20:20 TB Test TB - Nil SEE ATTACHED RESULT 06/06/18 20:20 TB Test (QFT) Interp SEE ATTACHED RESULT 06/06/18 20:20 - Physical Exam Vitals and I&O: Vital Signs Temp 97.1 F 06/19/18 08:00 Pulse 92 06/19/18 08:00 Resp 18 06/19/18 08:00 BP 100/58 06/19/18 08:00 Pulse Ox 94 06/19/18 08:00 Intake & Output 06/18/18 06/19/18 06/19/18 18:59 06:59 18:59 Intake Total 650 Balance 650 Weight (lbs) 78.018 kg Intake: Oral 650 Other: # Voids 4 Weight Source Estimated Active Medications: Current Medications Acetaminophen (Tylenol Extra Strength) 500 mg PO Q6HR PRN PRN Reason: FEVER Stop: 07/29/18 17:21 Last Admin: 06/13/18 21:48 Dose: 500 mg Albuterol/Ipratropium (Duoneb Neb) 3 ml HHN Q6HRT ANANDA Stop: 07/31/18 18:59 Last Admin: 06/19/18 07:10 Dose: 3 ml Diphenhydramine HCl (Benadryl) 25 mg PO Q6HR PRN PRN Reason: Itching Stop: 08/06/18 17:21 Last Admin: 06/09/18 21:05 Dose: 25 mg Enoxaparin Sodium (Lovenox) 80 mg SUBQ Q12HR ANANDA Stop: 08/14/18 20:59 Last Admin: 06/19/18 08:23 Dose: 80 mg Ibuprofen (Motrin) 800 mg PO TID PRN PRN Reason: MILD TO MOD. PAIN Stop: 07/29/18 17:16 Last Admin: 06/08/18 12:24 Dose: 800 mg Lactobacillus Rhamnosus (Culturelle 15b) 1 each PO DAILY ANANDA Stop: 08/04/18 08:59 Last Admin: 06/19/18 08:23 Dose: 1 each Levofloxacin (Levaquin) 500 mg PO DAILY@1300 ANANDA Stop: 08/10/18 12:59 Last Admin: 06/18/18 12:46 Dose: 500 mg Lorazepam (Ativan) 1 mg PO Q6HR PRN; Protocol PRN Reason: Sleeplessness Stop: 08/17/18 17:07 Miscellaneous (Probiotic Screen) 1 Health system PRN PRN PRN Reason: PROTOCOL Stop: 08/03/18 09:44 Miscellaneous (Lovenox Subq Per Pharmacy) 1 Health system PRN ANANDA; Protocol Stop: 08/09/18 16:59 Ondansetron HCl (Zofran) 4 mg IV Q6H PRN PRN Reason: NAUSEA Stop: 07/29/18 17:29 Zolpidem Tartrate (Ambien) 10 mg PO HS PRN PRN Reason: Insomnia Stop: 08/10/18 14:43 General: no acute distress, well developed, well nourished HEENT: atraumatic, normocephalic, PERRLA, EOMI Neck: supple, no thyromegaly Cardiovascular: S1S2, regular Lungs: clear to auscultation bilaterally, clear to percussion Abdomen: soft, no tender, no distended, no mass Extremities: no cyanosis, no clubbing, no edema Neurological: awake, alert, oriented Skin: intact - Procedures Procedures: Procedures Procedure Code Date DRAINAGE OF RIGHT PLEURAL CAVITY, PERC APPROACH, DIAGN [id number] 05/30/18 DRAINAGE OF RIGHT UPPER LUNG LOBE, ENDO, DIAGN [id number] 05/30/18 Infectious Disease Assmt/Plan - Assessment Assessment: 1. Pneumonmia. RUL, one AFB smear positive on culture, smears are negative >2 weeks. it was finalized as M. avium. 2. PE. 3. DVT. 4. Hemorrhagic pleural effusion. 5. Rash. Resolved. - Plan Plan: Continue levaquin. Patient does not meet criteria of MAC pneumonia at this time. TB is ruled out. May f/u cxr in one month or so, if there is no resolution. or pending culture grow same bacteria and meets criteria, then treat accordingly. May also consider Lung biopsy if infiltrates persists. Nutritional Asmnt/Malnutr-PDOC - Dietary Evaluation Malnutrition Findings (Please click <Entered> for more info): Nutritional Asmnt/Malnutrition Start: 06/03/18 11: 57 Text: Status: Complete Freq: Protocol: Document 06/03/18 12:44 [facility] (Rec[facility]03[email or web address] Nutritional Asmnt/Malnutrition Patient General Information Nutritional Screening Moderate Risk Pertinent Medical Hx/Surgical Hx no sig medical hx, appendectomy, smokes about 15 cigarettes a day Subjective Information Pt seen lying in bed at time of visit, stating appetite so so. Pt consumed few breakfast today, has no food preference to give. Per EMR, PO intake 25 -50%. Per nurse, pt has DVT to right arm. Current Diet Order/ Nutrition Support regular Pertinent Medications vancomycin Pertinent Labs 05/30 Na 134, glucose 145, Ca 8. 4 Nutritional Hx/Data Height 1.83 m Height (Calculated Centimeters) 182.9 Current Weight (lbs) 87.09 kg Weight (Calculated Kilograms) 87.1 Weight (Calculated Grams) 63421.7 [place] Body Weight 178 Body Mass Index (BMI) 26.0 Weight Status Overweight GI Symptoms GI Symptoms None Last BM not indicated Difficult in: None Skin Integrity/Comment: intact Current %PO Poor (25-49%) Estimated Nutritional Goals BEE in Kcals: Using Current wt Calories/Kcals/Kg 25-30 based IBW 81kg Kcals Calculated 1908-6113 Protein: Using Current wt Protein g/k Protein Calculated 81 Fluid: ml 202-2430ml (1ml/kcal) Nutritional Problem 1. Problem Problem inadequate food intake Etiology decreased appetite Signs/Symptoms: PO intake 25-30% Malnutrition Alert Is there a minimum of two criteria No selected? Query Text:Check all the applicable criteria. A minimum of two criteria are recommended for diagnosis of either severe or non-severe malnutrition. Malnutrition Related to Morbid Obesity Malnutrition related to morbid obesity No Intervention/Recommendation Comments 1. Continue with current diet as ordered. Encouraged oral intake. 2. Monitor PO intake, wt, labs and skin integrity 3. F/U as moderate risk in 3-5 days, 06/06-06/08, PO check Expected Outcomes/Goals Expected Outcomes/Goals 1. PO intake to meet at least 75% of nutritional needs. 2. Wt stability, skin to remain intact, labs to approach WNL.
--- NOTE | 2018-06-19 14:06 | Diagnostic Imaging Report ---
Head CT without intravenous contrast Indication: Altered level of consciousness Comparison: None Technique: Axial images were obtained from the vertex to the skull base without IV contrast. Coronal reconstructions were made. Total DLP: 792 , CTDI36 FINDINGS: Images of the brain obtained without contrast demonstrate no evidence of an acute hemorrhage. Mild atrophy is noted. The ventricles and basal cisterns are patent. No mass effect or midline shift. No evidence of a skull fracture or focal soft tissue swelling. The visualized paranasal sinuses are clear. IMPRESSION: No acute intracranial abnormality.
[2018-06-19] MEDS ORDERED: Sodium Chloride 0.9% 1,000 ML IV ONE ×2 (16:48→17:30)
--- NOTE | 2018-06-19 22:10 | General Progress Note ---
Subjective - Review of Systems Service Date: 06/19/18 Subjective: Patient seen and examined nursing staff reported that patient had syncopal episode this am while getting out of the shower During my evalution patient was alert awake able to remember most of the event Denied chest pain or trouble breathing or headache or seizure or any other complaints Objective - Results Result Diagrams: 06/18/18 08:06 06/14/18 04:40 Recent Labs: Laboratory Last Values WBC 4.6 Th/cmm (4.8-10.8) L 06/18/18 08:06 RBC 4.19 Mil/cmm (4.30-5.70) L 06/18/18 08:06 Hgb 12.4 gm/dL (12-16) 06/18/18 08:06 Hct 36.9 % (41.0-60) L 06/18/18 08:06 MCV 88.2 fl (80-99) 06/18/18 08:06 MCH 29.6 pg (26.0-30.0) 06/18/18 08:06 MCHC Differential 33.6 pg (28.0-36.0) 06/18/18 08:06 RDW 13.0 % (11.5-20.0) 06/18/18 08:06 Plt Count 510 Th/cmm (150-400) H 06/18/18 08:06 MPV 6.7 fl 06/18/18 08:06 Add Manual Diff YES 06/18/18 08:06 Neutrophils % 59.7 % (40.0-80.0) 06/12/18 04:40 Band Neutrophils % 1 % (0-10) 06/18/18 08:06 Lymphocytes % 23.2 % (20.0-50.0) 06/12/18 04:40 Monocytes % 8.7 % (2.0-10.0) 06/12/18 04:40 Eosinophils % 7.6 % (0.0-5.0) H 06/12/18 04:40 Basophils % 0.8 % (0.0-2.0) 06/12/18 04:40 Neutrophils (Manual) 65 % (40-80) 06/18/18 08:06 Lymphocytes 30 % (20-50) 06/18/18 08:06 Monocytes 3 % (2-10) 06/18/18 08:06 Eosinophils 1 % (0-5) 06/18/18 08:06 Basophils 0 % (0-3) 06/18/18 08:06 Atypical Lymphocytes 5 % 06/14/18 04:40 Platelet Estimate INCREASED PLATELETS (NORMAL) 06/18/18 08:06 PT 10.8 SECONDS (9.5-11.5) 06/05/18 08:00 INR 1.04 (0.5-1.4) 06/05/18 08:00 PTT (Actin FS) 28.2 SECONDS (26.0-38.0) 06/05/18 08:00 D-Dimer 1240 ng/mL (100-400) H 05/30/18 10:00 Sodium 136 mEq/L (136-145) 06/14/18 04:40 Potassium 3.9 mEq/L (3.5-5.1) 06/14/18 04:40 Chloride 102 mEq/L (98-107) 06/14/18 04:40 Carbon Dioxide 26.8 mEq/L (21.0-31.0) 06/14/18 04:40 Anion Gap 11.1 (7.0-16.0) 06/14/18 04:40 BUN 10 mg/dL (7-25) 06/14/18 04:40 Creatinine 0.8 mg/dL (0.7-1.3) 06/14/18 04:40 Est GFR ( Amer) > 60.0 ml/min (>90) 06/14/18 04:40 Est GFR (Non-Af Amer) > 60.0 ml/min 06/14/18 04:40 BUN/Creatinine Ratio 12.5 06/14/18 04:40 Glucose 111 mg/dL (70-105) H 06/14/18 04:40 POC Glucose 134 MG/DL (70 - 105) H 06/19/18 12:38 Whole Bld Lactic Acid 0.88 mmol/L (0.60-1.99) 06/07/18 00:10 Calcium 8.9 mg/dL (8.6-10.3) 06/14/18 04:40 Total Bilirubin 0.3 mg/dL (0.3-1.0) 06/14/18 04:40 AST 24 U/L (13-39) 06/14/18 04:40 ALT 41 U/L (7-52) 06/14/18 04:40 Alkaline Phosphatase 72 U/L (34-104) 06/14/18 04:40 Troponin I < 0.01 ng/mL (0.01-0.05) L 06/19/18 13:29 Total Protein 6.1 gm/dL (6.0-8.3) 06/14/18 04:40 Albumin 2.9 gm/dL (4.2-5.5) L 06/14/18 04:40 Globulin 3.2 gm/dL 06/14/18 04:40 Albumin/Globulin Ratio 0.9 (1.0-1.8) L 06/14/18 04:40 Urine Source CLEAN C 06/07/18 00:45 Urine Color YELLOW 06/07/18 00:45 Urine Clarity CLEAR (CLEAR) 06/07/18 00:45 Urine pH 7.0 (4.6 - 8.0) 06/07/18 00:45 Ur Specific [place] 1.015 (1.005-1.030) 06/07/18 00:45 Urine Protein NEGATIVE mg/dL (NEGATIVE) 06/07/18 00:45 Urine Glucose (UA) NEGATIVE mg/dL (NEGATIVE) 06/07/18 00:45 Urine Ketones NEGATIVE mg/dL (NEGATIVE) 06/07/18 00:45 Urine Blood NEGATIVE (NEGATIVE) 06/07/18 00:45 Urine Nitrate NEGATIVE (NEGATIVE) 06/07/18 00:45 Urine Bilirubin NEGATIVE (NEGATIVE) 06/07/18 00:45 Urine Urobilinogen 0.2 E.U./dL (0.2 - 1.0) 06/07/18 00:45 Ur Leukocyte Esterase NEGATIVE (NEGATIVE) 06/07/18 00:45 Urine WBC 0-2 /hpf (0-5) 06/07/18 00:45 Ur Epithelial Cells OCCASIONAL /lpf (FEW) 06/07/18 00:45 Urine Bacteria OCCASIONAL /hpf (NONE SEEN) 06/07/18 00:45 Urine Mucus FEW /lpf (FEW) 06/07/18 00:45 Fluid Glucose 106.0 mg/dL 06/05/18 10:45 Fluid Total Protein 3.3 g/dL 06/05/18 10:45 Fluid LDH 579 U/L 06/05/18 10:45 Vancomycin Trough 16.1 ug/mL (5-10) H 06/06/18 09:00 Coccidioides Ab Negative (Neg:<1:2) 06/10/18 04:05 Hepatitis A IgM Ab Negative (Negative) 06/10/18 04:05 Hep Bs Antigen Negative (Negative) 06/10/18 04:05 Hep B Core IgM Ab Negative (Negative) 06/10/18 04:05 Hepatitis C Antibody <0.1 s/co ratio (0.0-0.9) 06/10/18 04:05 HIV 1&2 Antibody Screen NEGATIVE (NEG) 06/07/18 04:15 TB (QFT) Gold In Tube SEE ATTACHED RESULT 06/06/18 20:20 TB Test (QFT) Mitogen SEE ATTACHED RESULT 06/06/18 20:20 TB Test (QFT) Antigen SEE ATTACHED RESULT 06/06/18 20:20 TB Test TB - Nil SEE ATTACHED RESULT 06/06/18 20:20 TB Test (QFT) Interp SEE ATTACHED RESULT 06/06/18 20:20 - Physical Exam Vitals and I&O: Vital Signs Temp 99.1 F 06/19/18 19:00 Pulse 87 06/19/18 19:00 Resp 18 06/19/18 19:00 BP 94/57 06/19/18 19:00 Pulse Ox 95 06/19/18 19:00 Intake & Output 06/19/18 06/19/18 06/20/18 06:59 18:59 06:59 Intake Total 808.333 Balance 808.333 Weight (lbs) 78.562 kg Intake: Intake, IV Amount 108.333 Sodium Chloride 0.9% 1, 108.333 000 ml @ 100 mls/hr IV . Q10H ONE Rx#:[id number] Oral 700 Other: # Voids 3 Weight Source Bedscale Active Medications: Current Medications Acetaminophen (Tylenol Extra Strength) 500 mg PO Q6HR PRN PRN Reason: FEVER Stop: 07/29/18 17:21 Last Admin: 06/13/18 21:48 Dose: 500 mg Albuterol/Ipratropium (Duoneb Neb) 3 ml HHN Q6HRT ANANDA Stop: 07/31/18 18:59 Last Admin: 06/19/18 18:37 Dose: 3 ml Diphenhydramine HCl (Benadryl) 25 mg PO Q6HR PRN PRN Reason: Itching Stop: 08/06/18 17:21 Last Admin: 06/09/18 21:05 Dose: 25 mg Enoxaparin Sodium (Lovenox) 80 mg SUBQ Q12HR ANANDA Stop: 08/14/18 20:59 Last Admin: 06/19/18 20:43 Dose: 80 mg Piperacillin Sod/Tazobactam (Sod 4.5 gm/ Sodium Chloride) 100 mls @ 100 mls/hr IV Q8HR ANANDA Stop: 08/18/18 20:59 Last Admin: 06/19/18 20:43 Dose: 100 mls/hr Sodium Chloride (Nacl 0.9%) 1,000 mls @ 100 mls/hr IV .Q10H ONE Stop: 06/20/18 02:47 Last Admin: 06/19/18 16:30 Dose: 100 mls/hr Ibuprofen (Motrin) 800 mg PO TID PRN PRN Reason: MILD TO MOD. PAIN Stop: 07/29/18 17:16 Last Admin: 06/08/18 12:24 Dose: 800 mg Lactobacillus Rhamnosus (Culturelle 15b) 1 each PO DAILY ANANDA Stop: 08/04/18 08:59 Last Admin: 06/19/18 08:23 Dose: 1 each Lorazepam (Ativan) 1 mg PO Q6HR PRN; Protocol PRN Reason: Sleeplessness Stop: 08/17/18 17:07 Miscellaneous (Probiotic Screen) 1 [facility] PRN PRN PRN Reason: PROTOCOL Stop: 08/03/18 09:44 Miscellaneous (Lovenox Subq Per Pharmacy) 1 [facility] PRN ANANDA; Protocol Stop: 08/09/18 16:59 Ondansetron HCl (Zofran) 4 mg IV Q6H PRN PRN Reason: NAUSEA Stop: 07/29/18 17:29 Zolpidem Tartrate (Ambien) 10 mg PO HS PRN PRN Reason: Insomnia Stop: 08/10/18 14:43 General: Alert Cardiovascular: Regular rate Lungs: Clear to auscultation Abdomen: Soft Extremities: no Edema Neurological: Other (non focal ) Skin: Rash (on the chest wall area) - Procedures Procedures: Procedures Procedure Code Date DRAINAGE OF RIGHT PLEURAL CAVITY, PERC APPROACH, DIAGN [id number] 05/30/18 DRAINAGE OF RIGHT UPPER LUNG LOBE, ENDO, DIAGN [id number] 05/30/18 Assessment/Plan - Assessment Assessment: Syncope Bilateral PE pneumonia s/p Hemorrhagic pleural effusion s/p thoracentesis Right UE DVT on anticoagulation Dermatitis better M avium infection per sputum culture (sample 05/21/18) Insomnia - Plan Plan: Most likely vasovagal Cardiac neuro w/u Head CT Troponin ECHO Cardiology neurology consulted Orthostatic vitals Plan of care discussed with the patient and his sister and with nursing staff Nutritional Asmnt/Malnutr-PDOC - Dietary Evaluation Malnutrition Findings (Please click <Entered> for more info): Nutritional Asmnt/Malnutrition Start: 06/03/18 11: 57 Text: Status: Complete Freq: Protocol: Document 06/03/18 12:44 [facility] (Rec: 06/03/18 12:48 [facility]-[email or web address]) Nutritional Asmnt/Malnutrition Patient General Information Nutritional Screening Moderate Risk Pertinent Medical Hx/Surgical Hx no sig medical hx, appendectomy, smokes about 15 cigarettes a day Subjective Information Pt seen lying in bed at time of visit, stating appetite so so. Pt consumed few breakfast today, has no food preference to give. Per EMR, PO intake 25 -50%. Per nurse, pt has DVT to right arm. Current Diet Order/ Nutrition Support regular Pertinent Medications vancomycin Pertinent Labs 05/30 Na 134, glucose 145, Ca 8. 4 Nutritional Hx/Data Height 1.83 m Height (Calculated Centimeters) 182.9 Current Weight (lbs) 87.09 kg Weight (Calculated Kilograms) 87.1 Weight (Calculated Grams) 19243.7 [place] Body Weight 178 Body Mass Index (BMI) 26.0 Weight Status Overweight GI Symptoms GI Symptoms None Last BM not indicated Difficult in: None Skin Integrity/Comment: intact Current %PO Poor (25-49%) Estimated Nutritional Goals BEE in Kcals: Using Current wt Calories/Kcals/Kg 25-30 based IBW 81kg Kcals Calculated 8142-8002 Protein: Using Current wt Protein g/k Protein Calculated 81 Fluid: ml 2024-243ml (1ml/kcal) Nutritional Problem 1. Problem Problem inadequate food intake Etiology decreased appetite Signs/Symptoms: PO intake 25-30% Malnutrition Alert Is there a minimum of two criteria No selected? Query Text:Check all the applicable criteria. A minimum of two criteria are recommended for diagnosis of either severe or non-severe malnutrition. Malnutrition Related to Morbid Obesity Malnutrition related to morbid obesity No Intervention/Recommendation Comments 1. Continue with current diet as ordered. Encouraged oral intake. 2. Monitor PO intake, wt, labs and skin integrity 3. F/U as moderate risk in 3-5 days, 06/06-06/08, PO check Expected Outcomes/Goals Expected Outcomes/Goals 1. PO intake to meet at least 75% of nutritional needs. 2. Wt stability, skin to remain intact, labs to approach WNL.
[2018-06-20] MEDS: Albuterol/Ipratropium Neb 3 ML AERS HHN SCH ×4 (01:36→19:09)
[2018-06-20] MEDS: Acetaminophen 500 MG TAB PO PRN ×2 (03:02→20:10)
[2018-06-20 05:27] LABS: ANION GAP 12.9 (7.0-16.0); BUN - UREA NITROGEN 11 mg/dL (7-25); CALCIUM SERUM 8.8 mg/dL (8.6-10.3); CHLORIDE 100 mEq/L (98-107); CREATININE - SERUM 0.9 mg/dL (0.7-1.3); GFR AFRICAN-AMERICAN > 60.0 ml/min (>90); GFR NON AFRICAN-AMERICAN > 60.0 ml/min; GLUCOSE 123 mg/dL (70-105); POTASSIUM SERUM 3.9 mEq/L (3.5-5.1); SODIUM SERUM 132 mEq/L (136-145)
[2018-06-20] MEDS: Lactobacillus Rhamnosus GG 15 Billion CFU CAP.SPRINK PO SCH (08:50)
[2018-06-20] MEDS: Enoxaparin 80 mg/0.8 mL 0.8mL Syr SUBQ SCH ×2 (08:50→20:10)
[2018-06-20] MEDS ORDERED: Sodium Chloride 0.9% 1,000 ML IV ONE (12:00)
--- NOTE | 2018-06-20 12:16 | Infectious Disease Prog Note ---
Infectious Disease Subjective - Review of Systems Service Date: 06/20/18 Events since last encounter: Patient has developed near syncope. He was transferred to the ICU for monitoring. Subjective: no fevers. Infectious Disease Objective - Results Result Diagrams: 06/18/18 08:06 06/20/18 04:20 Recent Labs: Laboratory Last Values WBC 4.6 Th/cmm (4.8-10.8) L 06/18/18 08:06 RBC 4.19 Mil/cmm (4.30-5.70) L 06/18/18 08:06 Hgb 12.4 gm/dL (12-16) 06/18/18 08:06 Hct 36.9 % (41.0-60) L 06/18/18 08:06 MCV 88.2 fl (80-99) 06/18/18 08:06 MCH 29.6 pg (26.0-30.0) 06/18/18 08:06 MCHC Differential 33.6 pg (28.0-36.0) 06/18/18 08:06 RDW 13.0 % (11.5-20.0) 06/18/18 08:06 Plt Count 510 Th/cmm (150-400) H 06/18/18 08:06 MPV 6.7 fl 06/18/18 08:06 Add Manual Diff YES 06/18/18 08:06 Neutrophils % 59.7 % (40.0-80.0) 06/12/18 04:40 Band Neutrophils % 1 % (0-10) 06/18/18 08:06 Lymphocytes % 23.2 % (20.0-50.0) 06/12/18 04:40 Monocytes % 8.7 % (2.0-10.0) 06/12/18 04:40 Eosinophils % 7.6 % (0.0-5.0) H 06/12/18 04:40 Basophils % 0.8 % (0.0-2.0) 06/12/18 04:40 Neutrophils (Manual) 65 % (40-80) 06/18/18 08:06 Lymphocytes 30 % (20-50) 06/18/18 08:06 Monocytes 3 % (2-10) 06/18/18 08:06 Eosinophils 1 % (0-5) 06/18/18 08:06 Basophils 0 % (0-3) 06/18/18 08:06 Atypical Lymphocytes 5 % 06/14/18 04:40 Platelet Estimate INCREASED PLATELETS (NORMAL) 06/18/18 08:06 PT 10.8 SECONDS (9.5-11.5) 06/05/18 08:00 INR 1.04 (0.5-1.4) 06/05/18 08:00 PTT (Actin FS) 28.2 SECONDS (26.0-38.0) 06/05/18 08:00 D-Dimer 1240 ng/mL (100-400) H 05/30/18 10:00 Sodium 132 mEq/L (136-145) L 06/20/18 04:20 Potassium 3.9 mEq/L (3.5-5.1) 06/20/18 04:20 Chloride 100 mEq/L (98-107) 06/20/18 04:20 Carbon Dioxide 23.0 mEq/L (21.0-31.0) 06/20/18 04:20 Anion Gap 12.9 (7.0-16.0) 06/20/18 04:20 BUN 11 mg/dL (7-25) 06/20/18 04:20 Creatinine 0.9 mg/dL (0.7-1.3) 06/20/18 04:20 Est GFR ( Amer) > 60.0 ml/min (>90) 06/20/18 04:20 Est GFR (Non-Af Amer) > 60.0 ml/min 06/20/18 04:20 BUN/Creatinine Ratio 12.2 06/20/18 04:20 Glucose 123 mg/dL (70-105) H 06/20/18 04:20 POC Glucose 134 MG/DL (70 - 105) H 06/19/18 12:38 Whole Bld Lactic Acid 0.88 mmol/L (0.60-1.99) 06/07/18 00:10 Calcium 8.8 mg/dL (8.6-10.3) 06/20/18 04:20 Total Bilirubin 0.3 mg/dL (0.3-1.0) 06/14/18 04:40 AST 24 U/L (13-39) 06/14/18 04:40 ALT 41 U/L (7-52) 06/14/18 04:40 Alkaline Phosphatase 72 U/L (34-104) 06/14/18 04:40 Troponin I < 0.01 ng/mL (0.01-0.05) L 06/19/18 13:29 Total Protein 6.1 gm/dL (6.0-8.3) 06/14/18 04:40 Albumin 2.9 gm/dL (4.2-5.5) L 06/14/18 04:40 Globulin 3.2 gm/dL 06/14/18 04:40 Albumin/Globulin Ratio 0.9 (1.0-1.8) L 06/14/18 04:40 Urine Source CLEAN C 06/07/18 00:45 Urine Color YELLOW 06/07/18 00:45 Urine Clarity CLEAR (CLEAR) 06/07/18 00:45 Urine pH 7.0 (4.6 - 8.0) 06/07/18 00:45 Ur Specific [place] 1.015 (1.005-1.030) 06/07/18 00:45 Urine Protein NEGATIVE mg/dL (NEGATIVE) 06/07/18 00:45 Urine Glucose (UA) NEGATIVE mg/dL (NEGATIVE) 06/07/18 00:45 Urine Ketones NEGATIVE mg/dL (NEGATIVE) 06/07/18 00:45 Urine Blood NEGATIVE (NEGATIVE) 06/07/18 00:45 Urine Nitrate NEGATIVE (NEGATIVE) 06/07/18 00:45 Urine Bilirubin NEGATIVE (NEGATIVE) 06/07/18 00:45 Urine Urobilinogen 0.2 E.U./dL (0.2 - 1.0) 06/07/18 00:45 Ur Leukocyte Esterase NEGATIVE (NEGATIVE) 06/07/18 00:45 Urine WBC 0-2 /hpf (0-5) 06/07/18 00:45 Ur Epithelial Cells OCCASIONAL /lpf (FEW) 06/07/18 00:45 Urine Bacteria OCCASIONAL /hpf (NONE SEEN) 06/07/18 00:45 Urine Mucus FEW /lpf (FEW) 06/07/18 00:45 Fluid Glucose 106.0 mg/dL 06/05/18 10:45 Fluid Total Protein 3.3 g/dL 06/05/18 10:45 Fluid LDH 579 U/L 06/05/18 10:45 Vancomycin Trough 16.1 ug/mL (5-10) H 06/06/18 09:00 Coccidioides Ab Negative (Neg:<1:2) 06/10/18 04:05 Hepatitis A IgM Ab Negative (Negative) 06/10/18 04:05 Hep Bs Antigen Negative (Negative) 06/10/18 04:05 Hep B Core IgM Ab Negative (Negative) 06/10/18 04:05 Hepatitis C Antibody <0.1 s/co ratio (0.0-0.9) 06/10/18 04:05 HIV 1&2 Antibody Screen NEGATIVE (NEG) 06/07/18 04:15 TB (QFT) Gold In Tube SEE ATTACHED RESULT 06/06/18 20:20 TB Test (QFT) Mitogen SEE ATTACHED RESULT 06/06/18 20:20 TB Test (QFT) Antigen SEE ATTACHED RESULT 06/06/18 20:20 TB Test TB - Nil SEE ATTACHED RESULT 06/06/18 20:20 TB Test (QFT) Interp SEE ATTACHED RESULT 06/06/18 20:20 - Physical Exam Vitals and I&O: Vital Signs Temp 98.6 F 06/20/18 04:00 Pulse 88 06/20/18 06:52 Resp 18 06/20/18 06:52 BP 101/66 06/20/18 06:00 Pulse Ox 95 06/20/18 06:52 Intake & Output 06/19/18 06/20/18 06/20/18 18:59 06:59 18:59 Intake Total 813.731 5849.667 Output Total 1000 Balance 808.333 811.667 Weight (lbs) 78.562 kg 78.698 kg Intake: Intake, IV Amount 046.457 2210.667 Piperacillin Sodium/ 200 Tazobact 4.5 gm In Sodium Chloride 0.9% 100 ml @ 100 mls/hr IV Q8HR [facility] Rx #:[id number] Sodium Chloride 0.9% 1, 108.333 000 ml @ 100 mls/hr IV . Q10H ONE Rx#:[id number] Oral 700 720 Output: Urine 1000 Other: # Voids 3 # Bowel Movements 0 Weight Source Bedscale Bedscale Active Medications: Current Medications Acetaminophen (Tylenol Extra Strength) 500 mg PO Q6HR PRN PRN Reason: FEVER Stop: 07/29/18 17:21 Last Admin: 06/20/18 03:02 Dose: 500 mg Albuterol/Ipratropium (Duoneb Neb) 3 ml HHN Q6HRT [facility] Stop: 07/31/18 18:59 Last Admin: 06/20/18 06:52 Dose: 3 ml Betamethasone/Clotrimazole (Lotrisone Cream) 1 appl TP BID PRN PRN Reason: Itching Stop: 06/23/18 11:29 Diphenhydramine HCl (Benadryl) 25 mg PO Q6HR PRN PRN Reason: Itching Stop: 08/06/18 17:21 Last Admin: 06/09/18 21:05 Dose: 25 mg Enoxaparin Sodium (Lovenox) 80 mg SUBQ Q12HR [facility] Stop: 08/14/18 20:59 Last Admin: 06/20/18 08:50 Dose: 80 mg Piperacillin Sod/Tazobactam (Sod 4.5 gm/ Sodium Chloride) 100 mls @ 100 mls/hr IV Q8HR [facility] Stop: 08/18/18 20:59 Last Infusion: 06/20/18 06:08 Dose: Infused Sodium Chloride (Nacl 0.9%) 1,000 mls @ 100 mls/hr IV .Q10H ONE Stop: 06/20/18 21:59 Ibuprofen (Motrin) 800 mg PO TID PRN PRN Reason: MILD TO MOD. PAIN Stop: 07/29/18 17:16 Last Admin: 06/08/18 12:24 Dose: 800 mg Lactobacillus Rhamnosus (Culturelle 15b) 1 each PO DAILY [facility]NDA Stop: 08/04/18 08:59 Last Admin: 06/20/18 08:50 Dose: 1 each Lorazepam (Ativan) 1 mg PO Q6HR PRN; Protocol PRN Reason: Sleeplessness Stop: 08/17/18 17:07 Miscellaneous (Probiotic Screen) 1 ea PRN PRN PRN Reason: PROTOCOL Stop: 08/03/18 09:44 Miscellaneous (Lovenox Subq Per Pharmacy) 1 ea PRN ANANDA; Protocol Stop: 08/09/18 16:59 Ondansetron HCl (Zofran) 4 mg IV Q6H PRN PRN Reason: NAUSEA Stop: 07/29/18 17:29 Zolpidem Tartrate (Ambien) 10 mg PO HS PRN PRN Reason: Insomnia Stop: 08/10/18 14:43 General: no acute distress, well developed, well nourished HEENT: atraumatic, normocephalic, PERRLA, EOMI Neck: supple, no thyromegaly Cardiovascular: S1S2, regular Lungs: clear to auscultation bilaterally, clear to percussion Abdomen: soft, no tender, no distended, no mass Extremities: no cyanosis, no clubbing, no edema Neurological: awake, alert, oriented Skin: intact - Procedures Procedures: Procedures Procedure Code Date DRAINAGE OF RIGHT PLEURAL CAVITY, PERC APPROACH, DIAGN [id number] 05/30/18 DRAINAGE OF RIGHT UPPER LUNG LOBE, ENDO, DIAGN [id number] 05/30/18 Infectious Disease Assmt/Plan - Assessment Assessment: 1. Pneumonmia. RUL, one AFB smear positive on culture, smears are negative >2 weeks. it was finalized as M. avium. 2. PE. 3. DVT. 4. Hemorrhagic pleural effusion. 5. Rash. Resolved. - Plan Plan: Change levaquin to Zosyn. Patient does not meet criteria of MAC pneumonia at this time. TB is ruled out. May f/u cxr in one month or so, if there is no resolution. or pending culture grow same bacteria and meets criteria, then treat accordingly. May also consider Lung biopsy if infiltrates persists. Nutritional Asmnt/Malnutr-PDOC - Dietary Evaluation Malnutrition Findings (Please click <Entered> for more info): Nutritional Asmnt/Malnutrition Start: 06/03/18 11: 57 Text: Status: Complete Freq: Protocol: Document 06/03/18 12:44 ELEONORA (Rec: 06/03/18 12:48 HARJIT [email or web address]) Nutritional Asmnt/Malnutrition Patient General Information Nutritional Screening Moderate Risk Pertinent Medical Hx/Surgical Hx no sig medical hx, appendectomy, smokes about 15 cigarettes a day Subjective Information Pt seen lying in bed at time of visit, stating appetite so so. Pt consumed few breakfast today, has no food preference to give. Per EMR, PO intake 25 -50%. Per nurse, pt has DVT to right arm. Current Diet Order/ Nutrition Support regular Pertinent Medications vancomycin Pertinent Labs 05/30 Na 134, glucose 145, Ca 8. 4 Nutritional Hx/Data Height 1.83 m Height (Calculated Centimeters) 182.9 Current Weight (lbs) 87.09 kg Weight (Calculated Kilograms) 87.1 Weight (Calculated Grams) 16968.7 [place] Body Weight 178 Body Mass Index (BMI) 26.0 Weight Status Overweight GI Symptoms GI Symptoms None Last BM not indicated Difficult in: None Skin Integrity/Comment: intact Current %PO Poor (25-49%) Estimated Nutritional Goals BEE in Kcals: Using Current wt Calories/Kcals/Kg 25-30 based IBW 81kg Kcals Calculated 3574-1056 Protein: Using Current wt Protein g/k Protein Calculated 81 Fluid: ml 2024-243ml (1ml/kcal) Nutritional Problem 1. Problem Problem inadequate food intake Etiology decreased appetite Signs/Symptoms: PO intake 25-30% Malnutrition Alert Is there a minimum of two criteria No selected? Query Text:Check all the applicable criteria. A minimum of two criteria are recommended for diagnosis of either severe or non-severe malnutrition. Malnutrition Related to Morbid Obesity Malnutrition related to morbid obesity No Intervention/Recommendation Comments 1. Continue with current diet as ordered. Encouraged oral intake. 2. Monitor PO intake, wt, labs and skin integrity 3. F/U as moderate risk in 3-5 days, 06/06-06/08, PO check Expected Outcomes/Goals Expected Outcomes/Goals 1. PO intake to meet at least 75% of nutritional needs. 2. Wt stability, skin to remain intact, labs to approach WNL.
--- NOTE | 2018-06-20 12:35 | Infectious Disease Prog Note ---
Infectious Disease Subjective - Review of Systems Service Date: 06/20/18 Events since last encounter: Patient felt dizzy and had near syncopal episode. found hypotensive. IVF was started. Subjective: no fevers. Hypotensive, IV fluid was started. Infectious Disease Objective - Results Result Diagrams: 06/18/18 08:06 06/20/18 04:20 Recent Labs: Laboratory Last Values WBC 4.6 Th/cmm (4.8-10.8) L 06/18/18 08:06 RBC 4.19 Mil/cmm (4.30-5.70) L 06/18/18 08:06 Hgb 12.4 gm/dL (12-16) 06/18/18 08:06 Hct 36.9 % (41.0-60) L 06/18/18 08:06 MCV 88.2 fl (80-99) 06/18/18 08:06 MCH 29.6 pg (26.0-30.0) 06/18/18 08:06 MCHC Differential 33.6 pg (28.0-36.0) 06/18/18 08:06 RDW 13.0 % (11.5-20.0) 06/18/18 08:06 Plt Count 510 Th/cmm (150-400) H 06/18/18 08:06 MPV 6.7 fl 06/18/18 08:06 Add Manual Diff YES 06/18/18 08:06 Neutrophils % 59.7 % (40.0-80.0) 06/12/18 04:40 Band Neutrophils % 1 % (0-10) 06/18/18 08:06 Lymphocytes % 23.2 % (20.0-50.0) 06/12/18 04:40 Monocytes % 8.7 % (2.0-10.0) 06/12/18 04:40 Eosinophils % 7.6 % (0.0-5.0) H 06/12/18 04:40 Basophils % 0.8 % (0.0-2.0) 06/12/18 04:40 Neutrophils (Manual) 65 % (40-80) 06/18/18 08:06 Lymphocytes 30 % (20-50) 06/18/18 08:06 Monocytes 3 % (2-10) 06/18/18 08:06 Eosinophils 1 % (0-5) 06/18/18 08:06 Basophils 0 % (0-3) 06/18/18 08:06 Atypical Lymphocytes 5 % 06/14/18 04:40 Platelet Estimate INCREASED PLATELETS (NORMAL) 06/18/18 08:06 PT 10.8 SECONDS (9.5-11.5) 06/05/18 08:00 INR 1.04 (0.5-1.4) 06/05/18 08:00 PTT (Actin FS) 28.2 SECONDS (26.0-38.0) 06/05/18 08:00 D-Dimer 1240 ng/mL (100-400) H 05/30/18 10:00 Sodium 132 mEq/L (136-145) L 06/20/18 04:20 Potassium 3.9 mEq/L (3.5-5.1) 06/20/18 04:20 Chloride 100 mEq/L (98-107) 06/20/18 04:20 Carbon Dioxide 23.0 mEq/L (21.0-31.0) 06/20/18 04:20 Anion Gap 12.9 (7.0-16.0) 06/20/18 04:20 BUN 11 mg/dL (7-25) 06/20/18 04:20 Creatinine 0.9 mg/dL (0.7-1.3) 06/20/18 04:20 Est GFR ( Amer) > 60.0 ml/min (>90) 06/20/18 04:20 Est GFR (Non-Af Amer) > 60.0 ml/min 06/20/18 04:20 BUN/Creatinine Ratio 12.2 06/20/18 04:20 Glucose 123 mg/dL (70-105) H 06/20/18 04:20 POC Glucose 134 MG/DL (70 - 105) H 06/19/18 12:38 Whole Bld Lactic Acid 0.88 mmol/L (0.60-1.99) 06/07/18 00:10 Calcium 8.8 mg/dL (8.6-10.3) 06/20/18 04:20 Total Bilirubin 0.3 mg/dL (0.3-1.0) 06/14/18 04:40 AST 24 U/L (13-39) 06/14/18 04:40 ALT 41 U/L (7-52) 06/14/18 04:40 Alkaline Phosphatase 72 U/L (34-104) 06/14/18 04:40 Troponin I < 0.01 ng/mL (0.01-0.05) L 06/19/18 13:29 Total Protein 6.1 gm/dL (6.0-8.3) 06/14/18 04:40 Albumin 2.9 gm/dL (4.2-5.5) L 06/14/18 04:40 Globulin 3.2 gm/dL 06/14/18 04:40 Albumin/Globulin Ratio 0.9 (1.0-1.8) L 06/14/18 04:40 Urine Source CLEAN C 06/07/18 00:45 Urine Color YELLOW 06/07/18 00:45 Urine Clarity CLEAR (CLEAR) 06/07/18 00:45 Urine pH 7.0 (4.6 - 8.0) 06/07/18 00:45 Ur Specific [place] 1.015 (1.005-1.030) 06/07/18 00:45 Urine Protein NEGATIVE mg/dL (NEGATIVE) 06/07/18 00:45 Urine Glucose (UA) NEGATIVE mg/dL (NEGATIVE) 06/07/18 00:45 Urine Ketones NEGATIVE mg/dL (NEGATIVE) 06/07/18 00:45 Urine Blood NEGATIVE (NEGATIVE) 06/07/18 00:45 Urine Nitrate NEGATIVE (NEGATIVE) 06/07/18 00:45 Urine Bilirubin NEGATIVE (NEGATIVE) 06/07/18 00:45 Urine Urobilinogen 0.2 E.U./dL (0.2 - 1.0) 06/07/18 00:45 Ur Leukocyte Esterase NEGATIVE (NEGATIVE) 06/07/18 00:45 Urine WBC 0-2 /hpf (0-5) 06/07/18 00:45 Ur Epithelial Cells OCCASIONAL /lpf (FEW) 06/07/18 00:45 Urine Bacteria OCCASIONAL /hpf (NONE SEEN) 06/07/18 00:45 Urine Mucus FEW /lpf (FEW) 18 00:45 Fluid Glucose 106.0 mg/dL 06/05/18 10:45 Fluid Total Protein 3.3 g/dL 06/05/18 10:45 Fluid LDH 579 U/L 06/05/18 10:45 Vancomycin Trough 16.1 ug/mL (5-10) H 06/06/18 09:00 Coccidioides Ab Negative (Neg:<1:2) 06/10/18 04:05 Hepatitis A IgM Ab Negative (Negative) 06/10/18 04:05 Hep Bs Antigen Negative (Negative) 06/10/18 04:05 Hep B Core IgM Ab Negative (Negative) 06/10/18 04:05 Hepatitis C Antibody <0.1 s/co ratio (0.0-0.9) 06/10/18 04:05 HIV 1&2 Antibody Screen NEGATIVE (NEG) 06/07/18 04:15 TB (QFT) Gold In Tube SEE ATTACHED RESULT 06/06/18 20:20 TB Test (QFT) Mitogen SEE ATTACHED RESULT 06/06/18 20:20 TB Test (QFT) Antigen SEE ATTACHED RESULT 06/06/18 20:20 TB Test TB - Nil SEE ATTACHED RESULT 06/06/18 20:20 TB Test (QFT) Interp SEE ATTACHED RESULT 06/06/18 20:20 - Physical Exam Vitals and I&O: Vital Signs Temp 98.6 F 06/20/18 04:00 Pulse 88 06/20/18 06:52 Resp 18 06/20/18 06:52 BP 101/66 06/20/18 06:00 Pulse Ox 95 06/20/18 06:52 Intake & Output 06/19/18 06/20/18 06/20/18 18:59 06:59 18:59 Intake Total 044.605 6100.667 Output Total 1000 Balance 808.333 811.667 Weight (lbs) 78.562 kg 78.698 kg Intake: Intake, IV Amount 943.504 2805.667 Piperacillin Sodium/ 200 Tazobact 4.5 gm In Sodium Chloride 0.9% 100 ml @ 100 mls/hr IV Q8HR [facility] Rx #:[id number] Sodium Chloride 0.9% 1, 108.333 000 ml @ 100 mls/hr IV . Q10H ONE Rx#:[id number] Oral 700 720 Output: Urine 1000 Other: # Voids 3 # Bowel Movements 0 Weight Source Bedscale Bedscale Active Medications: Current Medications Acetaminophen (Tylenol Extra Strength) 500 mg PO Q6HR PRN PRN Reason: FEVER Stop: 07/29/18 17:21 Last Admin: 06/20/18 03:02 Dose: 500 mg Albuterol/Ipratropium (Duoneb Neb) 3 ml HHN Q6HRT [facility] Stop: 07/31/18 18:59 Last Admin: 06/20/18 06:52 Dose: 3 ml Betamethasone/Clotrimazole (Lotrisone Cream) 1 appl TP BID PRN PRN Reason: Itching Stop: 06/23/18 11:29 Diphenhydramine HCl (Benadryl) 25 mg PO Q6HR PRN PRN Reason: Itching Stop: 08/06/18 17:21 Last Admin: 06/09/18 21:05 Dose: 25 mg Enoxaparin Sodium (Lovenox) 80 mg SUBQ Q12HR [facility] Stop: 08/14/18 20:59 Last Admin: 06/20/18 08:50 Dose: 80 mg Piperacillin Sod/Tazobactam (Sod 4.5 gm/ Sodium Chloride) 100 mls @ 100 mls/hr IV Q8HR [facility] Stop: 08/18/18 20:59 Last Admin: 06/20/18 12:21 Dose: 100 mls/hr Sodium Chloride (Nacl 0.9%) 1,000 mls @ 100 mls/hr IV .Q10H ONE Stop: 06/20/18 21:59 Last Admin: 06/20/18 12:19 Dose: 100 mls/hr Ibuprofen (Motrin) 800 mg PO TID PRN PRN Reason: MILD TO MOD. PAIN Stop: 07/29/18 17:16 Last Admin: 06/08/18 12:24 Dose: 800 mg Lactobacillus Rhamnosus (Culturelle 15b) 1 each PO DAILY [facility]NDA Stop: 08/04/18 08:59 Last Admin: 06/20/18 08:50 Dose: 1 each Lorazepam (Ativan) 1 mg PO Q6HR PRN; Protocol PRN Reason: Sleeplessness Stop: 08/17/18 17:07 Miscellaneous (Probiotic Screen) 1 ea PRN PRN PRN Reason: PROTOCOL Stop: 08/03/18 09:44 Miscellaneous (Lovenox Subq Per Pharmacy) 1 ea PRN ANANDA; Protocol Stop: 08/09/18 16:59 Ondansetron HCl (Zofran) 4 mg IV Q6H PRN PRN Reason: NAUSEA Stop: 07/29/18 17:29 Zolpidem Tartrate (Ambien) 10 mg PO HS PRN PRN Reason: Insomnia Stop: 08/10/18 14:43 General: no acute distress HEENT: atraumatic, normocephalic, PERRLA, EOMI Neck: supple, no thyromegaly Cardiovascular: S1S2, regular Lungs: clear to auscultation bilaterally, clear to percussion Abdomen: soft, no tender, no distended, no mass Extremities: no cyanosis, no clubbing, no edema Neurological: awake, alert, oriented Skin: intact - Procedures Procedures: Procedures Procedure Code Date DRAINAGE OF RIGHT PLEURAL CAVITY, PERC APPROACH, DIAGN [id number] 05/30/18 DRAINAGE OF RIGHT UPPER LUNG LOBE, ENDO, DIAGN [id number] 05/30/18 Infectious Disease Assmt/Plan - Assessment Assessment: 1. Pneumonmia. RUL, one AFB smear positive on culture, smears are negative >2 weeks. it was finalized as M. avium. 2. PE. 3. DVT. 4. Hemorrhagic pleural effusion. 5. Rash. Resolved. 6. Hypotension. - Plan Plan: Change levaquin to Zosyn. Patient does not meet criteria of MAC pneumonia at this time. TB is ruled out. May f/u cxr in one month or so, if there is no resolution. or pending culture grow same bacteria and meets criteria, then treat accordingly. May also consider Lung biopsy if infiltrates persists. Check blood cultures. Nutritional Asmnt/Malnutr-PDOC - Dietary Evaluation Malnutrition Findings (Please click <Entered> for more info): Nutritional Asmnt/Malnutrition Start: 06/03/18 11: 57 Text: Status: Complete Freq: Protocol: Document 06/03/18 12:44 LCHENG (Rec: 06/03/18 12:48 [email or web address] [email or web address]) Nutritional Asmnt/Malnutrition Patient General Information Nutritional Screening Moderate Risk Pertinent Medical Hx/Surgical Hx no sig medical hx, appendectomy, smokes about 15 cigarettes a day Subjective Information Pt seen lying in bed at time of visit, stating appetite so so. Pt consumed few breakfast today, has no food preference to give. Per EMR, PO intake 25 -50%. Per nurse, pt has DVT to right arm. Current Diet Order/ Nutrition Support regular Pertinent Medications vancomycin Pertinent Labs 05/30 Na 134, glucose 145, Ca 8. 4 Nutritional Hx/Data Height 1.83 m Height (Calculated Centimeters) 182.9 Current Weight (lbs) 87.09 kg Weight (Calculated Kilograms) 87.1 Weight (Calculated Grams) 51453.7 [place] Body Weight 178 Body Mass Index (BMI) 26.0 Weight Status Overweight GI Symptoms GI Symptoms None Last BM not indicated Difficult in: None Skin Integrity/Comment: intact Current %PO Poor (25-49%) Estimated Nutritional Goals BEE in Kcals: Using Current wt Calories/Kcals/Kg 25-30 based IBW 81kg Kcals Calculated 7557-4079 Protein: Using Current wt Protein g/k Protein Calculated 81 Fluid: ml 2024-243ml (1ml/kcal) Nutritional Problem 1. Problem Problem inadequate food intake Etiology decreased appetite Signs/Symptoms: PO intake 25-30% Malnutrition Alert Is there a minimum of two criteria No selected? Query Text:Check all the applicable criteria. A minimum of two criteria are recommended for diagnosis of either severe or non-severe malnutrition. Malnutrition Related to Morbid Obesity Malnutrition related to morbid obesity No Intervention/Recommendation Comments 1. Continue with current diet as ordered. Encouraged oral intake. 2. Monitor PO intake, wt, labs and skin integrity 3. F/U as moderate risk in 3-5 days, 06/06-06/08, PO check Expected Outcomes/Goals Expected Outcomes/Goals 1. PO intake to meet at least 75% of nutritional needs. 2. Wt stability, skin to remain intact, labs to approach WNL.
--- NOTE | 2018-06-20 12:40 | Infectious Disease Prog Note ---
Infectious Disease Subjective - Review of Systems Service Date: 06/20/18 Subjective: One episode of fever. Hypotensive, IV fluid was started. Infectious Disease Objective - Results Result Diagrams: 06/18/18 08:06 06/20/18 04:20 Recent Labs: Laboratory Last Values WBC 4.6 Th/cmm (4.8-10.8) L 06/18/18 08:06 RBC 4.19 Mil/cmm (4.30-5.70) L 06/18/18 08:06 Hgb 12.4 gm/dL (12-16) 06/18/18 08:06 Hct 36.9 % (41.0-60) L 06/18/18 08:06 MCV 88.2 fl (80-99) 06/18/18 08:06 MCH 29.6 pg (26.0-30.0) 06/18/18 08:06 MCHC Differential 33.6 pg (28.0-36.0) 06/18/18 08:06 RDW 13.0 % (11.5-20.0) 06/18/18 08:06 Plt Count 510 Th/cmm (150-400) H 06/18/18 08:06 MPV 6.7 fl 06/18/18 08:06 Add Manual Diff YES 06/18/18 08:06 Neutrophils % 59.7 % (40.0-80.0) 06/12/18 04:40 Band Neutrophils % 1 % (0-10) 06/18/18 08:06 Lymphocytes % 23.2 % (20.0-50.0) 06/12/18 04:40 Monocytes % 8.7 % (2.0-10.0) 06/12/18 04:40 Eosinophils % 7.6 % (0.0-5.0) H 06/12/18 04:40 Basophils % 0.8 % (0.0-2.0) 06/12/18 04:40 Neutrophils (Manual) 65 % (40-80) 06/18/18 08:06 Lymphocytes 30 % (20-50) 06/18/18 08:06 Monocytes 3 % (2-10) 06/18/18 08:06 Eosinophils 1 % (0-5) 06/18/18 08:06 Basophils 0 % (0-3) 06/18/18 08:06 Atypical Lymphocytes 5 % 06/14/18 04:40 Platelet Estimate INCREASED PLATELETS (NORMAL) 06/18/18 08:06 PT 10.8 SECONDS (9.5-11.5) 06/05/18 08:00 INR 1.04 (0.5-1.4) 06/05/18 08:00 PTT (Actin FS) 28.2 SECONDS (26.0-38.0) 06/05/18 08:00 D-Dimer 1240 ng/mL (100-400) H 05/30/18 10:00 Sodium 132 mEq/L (136-145) L 06/20/18 04:20 Potassium 3.9 mEq/L (3.5-5.1) 06/20/18 04:20 Chloride 100 mEq/L (98-107) 06/20/18 04:20 Carbon Dioxide 23.0 mEq/L (21.0-31.0) 06/20/18 04:20 Anion Gap 12.9 (7.0-16.0) 06/20/18 04:20 BUN 11 mg/dL (7-25) 06/20/18 04:20 Creatinine 0.9 mg/dL (0.7-1.3) 06/20/18 04:20 Est GFR ( Amer) > 60.0 ml/min (>90) 06/20/18 04:20 Est GFR (Non-Af Amer) > 60.0 ml/min 06/20/18 04:20 BUN/Creatinine Ratio 12.2 06/20/18 04:20 Glucose 123 mg/dL (70-105) H 06/20/18 04:20 POC Glucose 134 MG/DL (70 - 105) H 06/19/18 12:38 Whole Bld Lactic Acid 0.88 mmol/L (0.60-1.99) 06/07/18 00:10 Calcium 8.8 mg/dL (8.6-10.3) 06/20/18 04:20 Total Bilirubin 0.3 mg/dL (0.3-1.0) 06/14/18 04:40 AST 24 U/L (13-39) 06/14/18 04:40 ALT 41 U/L (7-52) 06/14/18 04:40 Alkaline Phosphatase 72 U/L (34-104) 06/14/18 04:40 Troponin I < 0.01 ng/mL (0.01-0.05) L 06/19/18 13:29 Total Protein 6.1 gm/dL (6.0-8.3) 06/14/18 04:40 Albumin 2.9 gm/dL (4.2-5.5) L 06/14/18 04:40 Globulin 3.2 gm/dL 06/14/18 04:40 Albumin/Globulin Ratio 0.9 (1.0-1.8) L 06/14/18 04:40 Urine Source CLEAN C 06/07/18 00:45 Urine Color YELLOW 06/07/18 00:45 Urine Clarity CLEAR (CLEAR) 06/07/18 00:45 Urine pH 7.0 (4.6 - 8.0) 06/07/18 00:45 Ur Specific [place] 1.015 (1.005-1.030) 06/07/18 00:45 Urine Protein NEGATIVE mg/dL (NEGATIVE) 06/07/18 00:45 Urine Glucose (UA) NEGATIVE mg/dL (NEGATIVE) 06/07/18 00:45 Urine Ketones NEGATIVE mg/dL (NEGATIVE) 06/07/18 00:45 Urine Blood NEGATIVE (NEGATIVE) 06/07/18 00:45 Urine Nitrate NEGATIVE (NEGATIVE) 06/07/18 00:45 Urine Bilirubin NEGATIVE (NEGATIVE) 06/07/18 00:45 Urine Urobilinogen 0.2 E.U./dL (0.2 - 1.0) 06/07/18 00:45 Ur Leukocyte Esterase NEGATIVE (NEGATIVE) 06/07/18 00:45 Urine WBC 0-2 /hpf (0-5) 06/07/18 00:45 Ur Epithelial Cells OCCASIONAL /lpf (FEW) 06/07/18 00:45 Urine Bacteria OCCASIONAL /hpf (NONE SEEN) 06/07/18 00:45 Urine Mucus FEW /lpf (FEW) 06/07/18 00:45 Fluid Glucose 106.0 mg/dL 06/05/18 10:45 Fluid Total Protein 3.3 g/dL 06/05/18 10:45 Fluid LDH 579 U/L 06/05/18 10:45 Vancomycin Trough 16.1 ug/mL (5-10) H 06/06/18 09:00 Coccidioides Ab Negative (Neg:<1:2) 06/10/18 04:05 Hepatitis A IgM Ab Negative (Negative) 06/10/18 04:05 Hep Bs Antigen Negative (Negative) 06/10/18 04:05 Hep B Core IgM Ab Negative (Negative) 06/10/18 04:05 Hepatitis C Antibody <0.1 s/co ratio (0.0-0.9) 06/10/18 04:05 HIV 1&2 Antibody Screen NEGATIVE (NEG) 06/07/18 04:15 TB (QFT) Gold In Tube SEE ATTACHED RESULT 06/06/18 20:20 TB Test (QFT) Mitogen SEE ATTACHED RESULT 06/06/18 20:20 TB Test (QFT) Antigen SEE ATTACHED RESULT 06/06/18 20:20 TB Test TB - Nil SEE ATTACHED RESULT 06/06/18 20:20 TB Test (QFT) Interp SEE ATTACHED RESULT 06/06/18 20:20 - Physical Exam Vitals and I&O: Vital Signs Temp 98.6 F 06/20/18 04:00 Pulse 88 06/20/18 06:52 Resp 18 06/20/18 06:52 BP 101/66 06/20/18 06:00 Pulse Ox 95 06/20/18 06:52 Intake & Output 06/19/18 06/20/18 06/20/18 18:59 06:59 18:59 Intake Total 327.154 9742.667 Output Total 1000 Balance 808.333 811.667 Weight (lbs) 78.562 kg 78.698 kg Intake: Intake, IV Amount 844.677 0145.667 Piperacillin Sodium/ 200 Tazobact 4.5 gm In Sodium Chloride 0.9% 100 ml @ 100 mls/hr IV Q8HR [facility] Rx #:[id number] Sodium Chloride 0.9% 1, 108.333 000 ml @ 100 mls/hr IV . Q10H ONE Rx#:[id number] Oral 700 720 Output: Urine 1000 Other: # Voids 3 # Bowel Movements 0 Weight Source Bedscale Bedscale Active Medications: Current Medications Acetaminophen (Tylenol Extra Strength) 500 mg PO Q6HR PRN PRN Reason: FEVER Stop: 07/29/18 17:21 Last Admin: 06/20/18 03:02 Dose: 500 mg Albuterol/Ipratropium (Duoneb Neb) 3 ml HHN Q6HRT ANANDA Stop: 07/31/18 18:59 Last Admin: 06/20/18 06:52 Dose: 3 ml Betamethasone/Clotrimazole (Lotrisone Cream) 1 appl TP BID PRN PRN Reason: Itching Stop: 06/23/18 11:29 Diphenhydramine HCl (Benadryl) 25 mg PO Q6HR PRN PRN Reason: Itching Stop: 08/06/18 17:21 Last Admin: 06/09/18 21:05 Dose: 25 mg Enoxaparin Sodium (Lovenox) 80 mg SUBQ Q12HR ANANDA Stop: 08/14/18 20:59 Last Admin: 06/20/18 08:50 Dose: 80 mg Piperacillin Sod/Tazobactam (Sod 4.5 gm/ Sodium Chloride) 100 mls @ 100 mls/hr IV Q8HR ANANDA Stop: 08/18/18 20:59 Last Admin: 06/20/18 12:21 Dose: 100 mls/hr Sodium Chloride (Nacl 0.9%) 1,000 mls @ 100 mls/hr IV .Q10H ONE Stop: 06/20/18 21:59 Last Admin: 06/20/18 12:19 Dose: 100 mls/hr Ibuprofen (Motrin) 800 mg PO TID PRN PRN Reason: MILD TO MOD. PAIN Stop: 07/29/18 17:16 Last Admin: 06/08/18 12:24 Dose: 800 mg Lactobacillus Rhamnosus (Culturelle 15b) 1 each PO DAILY ANANDA Stop: 08/04/18 08:59 Last Admin: 06/20/18 08:50 Dose: 1 each Lorazepam (Ativan) 1 mg PO Q6HR PRN; Protocol PRN Reason: Sleeplessness Stop: 08/17/18 17:07 Miscellaneous (Probiotic Screen) 1 ea PRN PRN PRN Reason: PROTOCOL Stop: 08/03/18 09:44 Miscellaneous (Lovenox Subq Per Pharmacy) 1 ea MC PRN ANANDA; Protocol Stop: 08/09/18 16:59 Ondansetron HCl (Zofran) 4 mg IV Q6H PRN PRN Reason: NAUSEA Stop: 07/29/18 17:29 Zolpidem Tartrate (Ambien) 10 mg PO HS PRN PRN Reason: Insomnia Stop: 08/10/18 14:43 General: no acute distress HEENT: atraumatic, normocephalic, PERRLA, EOMI Neck: supple Cardiovascular: S1S2, regular Lungs: clear to auscultation bilaterally, clear to percussion Abdomen: soft, no tender, no distended Extremities: no cyanosis, no clubbing, no edema Neurological: awake, alert, oriented Skin: intact - Procedures Procedures: Procedures Procedure Code Date DRAINAGE OF RIGHT PLEURAL CAVITY, PERC APPROACH, DIAGN [id number] 05/30/18 DRAINAGE OF RIGHT UPPER LUNG LOBE, ENDO, DIAGN [id number] 05/30/18 Infectious Disease Assmt/Plan - Assessment Assessment: 1. Pneumonmia. RUL, one AFB smear positive on culture, smears are negative >2 weeks. it was finalized as M. avium. 2. PE. 3. DVT. 4. Hemorrhagic pleural effusion. 5. Rash. Resolved. 6. Hypotension. r/o sepsis - Plan Plan: Change levaquin to Zosyn. Patient does not meet criteria of MAC pneumonia at this time. TB is ruled out. May f/u cxr in one month or so, if there is no resolution. or pending culture grow same bacteria and meets criteria, then treat accordingly. May also consider Lung biopsy if infiltrates persists. Check sepsis w/u. Nutritional Asmnt/Malnutr-PDOC - Dietary Evaluation Malnutrition Findings (Please click <Entered> for more info): Nutritional Asmnt/Malnutrition Start: 06/03/18 11: 57 Text: Status: Complete Freq: Protocol: Document 06/03/18 12:44 HENG (Rec: 06/03/18 12:48 [id number]) Nutritional Asmnt/Malnutrition Patient General Information Nutritional Screening Moderate Risk Pertinent Medical Hx/Surgical Hx no sig medical hx, appendectomy, smokes about 15 cigarettes a day Subjective Information Pt seen lying in bed at time of visit, stating appetite so so. Pt consumed few breakfast today, has no food preference to give. Per EMR, PO intake 25 -50%. Per nurse, pt has DVT to right arm. Current Diet Order/ Nutrition Support regular Pertinent Medications vancomycin Pertinent Labs 05/30 Na 134, glucose 145, Ca 8. 4 Nutritional Hx/Data Height 1.83 m Height (Calculated Centimeters) 182.9 Current Weight (lbs) 87.09 kg Weight (Calculated Kilograms) 87.1 Weight (Calculated Grams) 91735.7 [place] Body Weight 178 Body Mass Index (BMI) 26.0 Weight Status Overweight GI Symptoms GI Symptoms None Last BM not indicated Difficult in: None Skin Integrity/Comment: intact Current %PO Poor (25-49%) Estimated Nutritional Goals BEE in Kcals: Using Current wt Calories/Kcals/Kg 25-30 based IBW 81kg Kcals Calculated 0524-2039 Protein: Using Current wt Protein g/k Protein Calculated 81 Fluid: ml 2024-243ml (1ml/kcal) Nutritional Problem 1. Problem Problem inadequate food intake Etiology decreased appetite Signs/Symptoms: PO intake 25-30% Malnutrition Alert Is there a minimum of two criteria No selected? Query Text:Check all the applicable criteria. A minimum of two criteria are recommended for diagnosis of either severe or non-severe malnutrition. Malnutrition Related to Morbid Obesity Malnutrition related to morbid obesity No Intervention/Recommendation Comments 1. Continue with current diet as ordered. Encouraged oral intake. 2. Monitor PO intake, wt, labs and skin integrity 3. F/U as moderate risk in 3-5 days, 06/06-06/08, PO check Expected Outcomes/Goals Expected Outcomes/Goals 1. PO intake to meet at least 75% of nutritional needs. 2. Wt stability, skin to remain intact, labs to approach WNL.
--- NOTE | 2018-06-20 17:29 | Consultation ---
DATE OF CONSULTATION: 06/19/[address] Pamela Hamlin. HISTORY OF PRESENT ILLNESS: This is a 57-year-old male patient who was recently admitted with pneumonia with TB. Following this, the patient during hospital stay was having a shower, at this time, the patient had syncopal episode and the patient was transferred to ICU and cardiac consult is requested. The patient has hypotension at the present time with postural hypotension. PAST MEDICAL HISTORY: Bilateral pleural effusion, right upper extremity DVT with pulmonary emboli, insomnia, COPD, and hyponatremia. FAMILY HISTORY: Unremarkable. SOCIAL HISTORY: No history of smoking, alcohol abuse. ALLERGIES: No known allergies. PHYSICAL EXAMINATION: VITAL SIGNS: Blood pressure 90 systolic, pulse 100, and respirations 28. HEAD: Normocephalic. No lumps or bumps. EYES: Pupils equal, reactive to light. Fundi show AV nicking, sclerae white, conjunctivae pink. NECK: Carotid 2+. Normal upstroke. JVD flat. Thyroid not palpable. Lymph nodes not palpable. CHEST: Shows increased AP diameter. No kyphosis, scoliosis. LUNGS: Bilateral bronchovesicular breath sounds. HEART: PMI fifth intercostal space with lateral to midclavicular line. S1, S2. No S3, soft S4, soft systolic murmur. ABDOMEN: Soft. Liver and spleen not palpable. No organomegaly. Bowel sounds active. NEUROLOGIC: Unremarkable. EXTREMITIES: Peripheral pulses 2+. No pedal edema. CLINICAL IMPRESSION: Postural hypotension, bilateral pleural effusion, right upper extremity deep venous thrombosis, pulmonary emboli, insomnia, chronic obstructive pulmonary disease, and hyponatremia. PLAN: At the present time, we will give IV fluids. Get echocardiogram. JOB# [id number]
--- NOTE | 2018-06-20 21:13 | General Progress Note ---
Subjective - Review of Systems Service Date: 06/20/18 Subjective: Patient seen and examined patient has episode of fever last night Objective - Results Result Diagrams: 06/18/18 08:06 06/20/18 04:20 Recent Labs: Laboratory Last Values WBC 4.6 Th/cmm (4.8-10.8) L 06/18/18 08:06 RBC 4.19 Mil/cmm (4.30-5.70) L 06/18/18 08:06 Hgb 12.4 gm/dL (12-16) 06/18/18 08:06 Hct 36.9 % (41.0-60) L 06/18/18 08:06 MCV 88.2 fl (80-99) 06/18/18 08:06 MCH 29.6 pg (26.0-30.0) 06/18/18 08:06 MCHC Differential 33.6 pg (28.0-36.0) 06/18/18 08:06 RDW 13.0 % (11.5-20.0) 06/18/18 08:06 Plt Count 510 Th/cmm (150-400) H 06/18/18 08:06 MPV 6.7 fl 06/18/18 08:06 Add Manual Diff YES 06/18/18 08:06 Neutrophils % 59.7 % (40.0-80.0) 06/12/18 04:40 Band Neutrophils % 1 % (0-10) 06/18/18 08:06 Lymphocytes % 23.2 % (20.0-50.0) 06/12/18 04:40 Monocytes % 8.7 % (2.0-10.0) 06/12/18 04:40 Eosinophils % 7.6 % (0.0-5.0) H 06/12/18 04:40 Basophils % 0.8 % (0.0-2.0) 06/12/18 04:40 Neutrophils (Manual) 65 % (40-80) 06/18/18 08:06 Lymphocytes 30 % (20-50) 06/18/18 08:06 Monocytes 3 % (2-10) 06/18/18 08:06 Eosinophils 1 % (0-5) 06/18/18 08:06 Basophils 0 % (0-3) 06/18/18 08:06 Atypical Lymphocytes 5 % 06/14/18 04:40 Platelet Estimate INCREASED PLATELETS (NORMAL) 06/18/18 08:06 PT 10.8 SECONDS (9.5-11.5) 06/05/18 08:00 INR 1.04 (0.5-1.4) 06/05/18 08:00 PTT (Actin FS) 28.2 SECONDS (26.0-38.0) 06/05/18 08:00 D-Dimer 1240 ng/mL (100-400) H 05/30/18 10:00 Sodium 132 mEq/L (136-145) L 06/20/18 04:20 Potassium 3.9 mEq/L (3.5-5.1) 06/20/18 04:20 Chloride 100 mEq/L (98-107) 06/20/18 04:20 Carbon Dioxide 23.0 mEq/L (21.0-31.0) 06/20/18 04:20 Anion Gap 12.9 (7.0-16.0) 06/20/18 04:20 BUN 11 mg/dL (7-25) 06/20/18 04:20 Creatinine 0.9 mg/dL (0.7-1.3) 06/20/18 04:20 Est GFR ( Amer) > 60.0 ml/min (>90) 06/20/18 04:20 Est GFR (Non-Af Amer) > 60.0 ml/min 06/20/18 04:20 BUN/Creatinine Ratio 12.2 06/20/18 04:20 Glucose 123 mg/dL (70-105) H 06/20/18 04:20 POC Glucose 134 MG/DL (70 - 105) H 06/19/18 12:38 Whole Bld Lactic Acid 0.88 mmol/L (0.60-1.99) 06/07/18 00:10 Calcium 8.8 mg/dL (8.6-10.3) 06/20/18 04:20 Total Bilirubin 0.3 mg/dL (0.3-1.0) 06/14/18 04:40 AST 24 U/L (13-39) 06/14/18 04:40 ALT 41 U/L (7-52) 06/14/18 04:40 Alkaline Phosphatase 72 U/L (34-104) 06/14/18 04:40 Troponin I < 0.01 ng/mL (0.01-0.05) L 06/19/18 13:29 Total Protein 6.1 gm/dL (6.0-8.3) 06/14/18 04:40 Albumin 2.9 gm/dL (4.2-5.5) L 06/14/18 04:40 Globulin 3.2 gm/dL 06/14/18 04:40 Albumin/Globulin Ratio 0.9 (1.0-1.8) L 06/14/18 04:40 Urine Source CLEAN C 06/07/18 00:45 Urine Color YELLOW 06/07/18 00:45 Urine Clarity CLEAR (CLEAR) 06/07/18 00:45 Urine pH 7.0 (4.6 - 8.0) 06/07/18 00:45 Ur Specific [place] 1.015 (1.005-1.030) 06/07/18 00:45 Urine Protein NEGATIVE mg/dL (NEGATIVE) 06/07/18 00:45 Urine Glucose (UA) NEGATIVE mg/dL (NEGATIVE) 06/07/18 00:45 Urine Ketones NEGATIVE mg/dL (NEGATIVE) 06/07/18 00:45 Urine Blood NEGATIVE (NEGATIVE) 06/07/18 00:45 Urine Nitrate NEGATIVE (NEGATIVE) 06/07/18 00:45 Urine Bilirubin NEGATIVE (NEGATIVE) 06/07/18 00:45 Urine Urobilinogen 0.2 E.U./dL (0.2 - 1.0) 06/07/18 00:45 Ur Leukocyte Esterase NEGATIVE (NEGATIVE) 06/07/18 00:45 Urine WBC 0-2 /hpf (0-5) 06/07/18 00:45 Ur Epithelial Cells OCCASIONAL /lpf (FEW) 06/07/18 00:45 Urine Bacteria OCCASIONAL /hpf (NONE SEEN) 06/07/18 00:45 Urine Mucus FEW /lpf (FEW) 06/07/18 00:45 Fluid Glucose 106.0 mg/dL 06/05/18 10:45 Fluid Total Protein 3.3 g/dL 06/05/18 10:45 Fluid LDH 579 U/L 06/05/18 10:45 Vancomycin Trough 16.1 ug/mL (5-10) H 06/06/18 09:00 Coccidioides Ab Negative (Neg:<1:2) 06/10/18 04:05 Hepatitis A IgM Ab Negative (Negative) 06/10/18 04:05 Hep Bs Antigen Negative (Negative) 06/10/18 04:05 Hep B Core IgM Ab Negative (Negative) 06/10/18 04:05 Hepatitis C Antibody <0.1 s/co ratio (0.0-0.9) 06/10/18 04:05 HIV 1&2 Antibody Screen NEGATIVE (NEG) 06/07/18 04:15 TB (QFT) Gold In Tube SEE ATTACHED RESULT 06/06/18 20:20 TB Test (QFT) Mitogen SEE ATTACHED RESULT 06/06/18 20:20 TB Test (QFT) Antigen SEE ATTACHED RESULT 06/06/18 20:20 TB Test TB - Nil SEE ATTACHED RESULT 06/06/18 20:20 TB Test (QFT) Interp SEE ATTACHED RESULT 06/06/18 20:20 - Physical Exam Vitals and I&O: Vital Signs Temp 99.2 F 06/20/18 16:00 Pulse 91 06/20/18 19:10 Resp 23 06/20/18 19:10 BP 113/72 06/20/18 18:00 Pulse Ox 95 06/20/18 19:10 Intake & Output 06/20/18 06/20/18 06/21/18 06:59 18:59 06:59 Intake Total 1811.667 750 Output Total 1000 1500 Balance 811.667 -750 Weight (lbs) 78.698 kg 79.832 kg Intake: Intake, IV Amount 1091.667 100 Piperacillin Sodium/ 200 100 Tazobact 4.5 gm In Sodium Chloride 0.9% 100 ml @ 100 mls/hr IV Q8HR [facility] Rx #:[id number] Oral 720 600 Other 50 Output: Urine 1000 1500 Other: # Bowel Movements 0 0 Weight Source Bedscale Bedscale Active Medications: Current Medications Acetaminophen (Tylenol Extra Strength) 500 mg PO Q6HR PRN PRN Reason: FEVER Stop: 07/29/18 17:21 Last Admin: 06/20/18 20:10 Dose: 500 mg Albuterol/Ipratropium (Duoneb Neb) 3 ml HHN Q6HRT ANANDA Stop: 07/31/18 18:59 Last Admin: 06/20/18 19:09 Dose: 3 ml Betamethasone/Clotrimazole (Lotrisone Cream) 1 appl TP BID PRN PRN Reason: Itching Stop: 06/23/18 11:29 Diphenhydramine HCl (Benadryl) 25 mg PO Q6HR PRN PRN Reason: Itching Stop: 08/06/18 17:21 Last Admin: 06/09/18 21:05 Dose: 25 mg Enoxaparin Sodium (Lovenox) 80 mg SUBQ Q12HR ANANDA Stop: 08/14/18 20:59 Last Admin: 06/20/18 20:10 Dose: 80 mg Piperacillin Sod/Tazobactam (Sod 4.5 gm/ Sodium Chloride) 100 mls @ 100 mls/hr IV Q8HR ANANDA Stop: 08/18/18 20:59 Last Admin: 06/20/18 20:10 Dose: 100 mls/hr Sodium Chloride (Nacl 0.9%) 1,000 mls @ 100 mls/hr IV .Q10H ONE Stop: 06/20/18 21:59 Last Admin: 06/20/18 12:19 Dose: 100 mls/hr Ibuprofen (Motrin) 800 mg PO TID PRN PRN Reason: MILD TO MOD. PAIN Stop: 07/29/18 17:16 Last Admin: 06/08/18 12:24 Dose: 800 mg Lactobacillus Rhamnosus (Culturelle 15b) 1 each PO DAILY ANANDA Stop: 08/04/18 08:59 Last Admin: 06/20/18 08:50 Dose: 1 each Lorazepam (Ativan) 1 mg PO Q6HR PRN; Protocol PRN Reason: Sleeplessness Stop: 08/17/18 17:07 Miscellaneous (Probiotic Screen) 1 ea MC PRN PRN PRN Reason: PROTOCOL Stop: 08/03/18 09:44 Miscellaneous (Lovenox Subq Per Pharmacy) 1 ea MC PRN ANANDA; Protocol Stop: 08/09/18 16:59 Ondansetron HCl (Zofran) 4 mg IV Q6H PRN PRN Reason: NAUSEA Stop: 07/29/18 17:29 Zolpidem Tartrate (Ambien) 10 mg PO HS PRN PRN Reason: Insomnia Stop: 08/10/18 14:43 General: Alert Cardiovascular: Regular rate Lungs: Clear to auscultation Abdomen: Soft, no Tender Extremities: no Edema Neurological: Other (non focal ) Skin: Rash (on the chest wall area) - Procedures Procedures: Procedures Procedure Code Date DRAINAGE OF RIGHT PLEURAL CAVITY, PERC APPROACH, DIAGN [id number] 05/30/18 DRAINAGE OF RIGHT UPPER LUNG LOBE, ENDO, DIAGN [id number] 05/30/18 Assessment/Plan - Assessment Assessment: Fever with hypotension r/o sepsis Bilateral PE pneumonia s/p Hemorrhagic pleural effusion s/p thoracentesis Right UE DVT on anticoagulation Dermatitis better M avium infection per sputum culture (sample 05/21/18) Insomnia - Plan Plan: Sepsis w/u Zosyn started IV fluids Monitor BP Case discussed with ID agreed with current treatment Nutritional Asmnt/Malnutr-PDOC - Dietary Evaluation Malnutrition Findings (Please click <Entered> for more info): Nutritional Asmnt/Malnutrition Start: 06/03/18 11: 57 Text: Status: Complete Freq: Protocol: Document 06/03/18 12:44 ELEONORA (Rec: 06/03/18 12:48 ELEONORA [place] [id number]) Nutritional Asmnt/Malnutrition Patient General Information Nutritional Screening Moderate Risk Pertinent Medical Hx/Surgical Hx no sig medical hx, appendectomy, smokes about 15 cigarettes a day Subjective Information Pt seen lying in bed at time of visit, stating appetite so so. Pt consumed few breakfast today, has no food preference to give. Per EMR, PO intake 25 -50%. Per nurse, pt has DVT to right arm. Current Diet Order/ Nutrition Support regular Pertinent Medications vancomycin Pertinent Labs 05/30 Na 134, glucose 145, Ca 8. 4 Nutritional Hx/Data Height 1.83 m Height (Calculated Centimeters) 182.9 Current Weight (lbs) 87.09 kg Weight (Calculated Kilograms) 87.1 Weight (Calculated Grams) 96477.7 [place] Body Weight 178 Body Mass Index (BMI) 26.0 Weight Status Overweight GI Symptoms GI Symptoms None Last BM not indicated Difficult in: None Skin Integrity/Comment: intact Current %PO Poor (25-49%) Estimated Nutritional Goals BEE in Kcals: Using Current wt Calories/Kcals/Kg 25-30 based IBW 81kg Kcals Calculated 0801-3130 Protein: Using Current wt Protein g/k Protein Calculated 81 Fluid: ml 2024-243ml (1ml/kcal) Nutritional Problem 1. Problem Problem inadequate food intake Etiology decreased appetite Signs/Symptoms: PO intake 25-30% Malnutrition Alert Is there a minimum of two criteria No selected? Query Text:Check all the applicable criteria. A minimum of two criteria are recommended for diagnosis of either severe or non-severe malnutrition. Malnutrition Related to Morbid Obesity Malnutrition related to morbid obesity No Intervention/Recommendation Comments 1. Continue with current diet as ordered. Encouraged oral intake. 2. Monitor PO intake, wt, labs and skin integrity 3. F/U as moderate risk in 3-5 days, 06/06-06/08, PO check Expected Outcomes/Goals Expected Outcomes/Goals 1. PO intake to meet at least 75% of nutritional needs. 2. Wt stability, skin to remain intact, labs to approach WNL.
[2018-06-21] MEDS: Albuterol/Ipratropium Neb 3 ML AERS HHN SCH ×4 (00:56→19:09)
[2018-06-21] MEDS: Betamethasone/Clotrimazole Cream 15 gm Tube TP PRN (02:13)
[2018-06-21 05:07] LABS: % BASOPHILS 1.2 % (0.0-2.0); % LYMPHOCYTES 23.9 % (20.0-50.0); % NEUTROPHILS 64.9 % (40.0-80.0); BASOPHILE ABSOLUTE 0.1 Th/cumm (0-0.2); EOSINOPHILE ABSOLUTE 0.2 Th/cmm (0.1-0.4); HEMATOCRIT 34.3 % (41.0-60); HEMOGLOBIN 11.5 gm/dL (12-16); LYMPHOCYTE ABSOLUTE 1.3 Th/cmm (1.5-3.0); MEAN CELL VOLUME 88.2 fl (80-99); MEAN CORPUSCULAR HEMOGLOBIN 29.6 pg (26.0-30.0); MEAN CORPUSCULAR HGB CONC 33.6 pg (28.0-36.0); MEAN PLATELET VOLUME 6.9 fl; MONOCYTE ABSOLUTE 0.4 Th/cmm (0.3-1.0); NEUTROPHILE ABSOLUTE 3.6 Th/cmm (1.8-8.0); PLATELET COUNT 371 Th/cmm (150-400); RED BLOOD COUNT 3.89 Mil/cmm (4.30-5.70); RED CELL DISTRIBUTION WIDTH 12.6 % (11.5-20.0); WHITE BLOOD COUNT 5.6 Th/cmm (4.8-10.8)
[2018-06-21 05:40] LABS: ANION GAP 9.9 (7.0-16.0); BUN - UREA NITROGEN 10 mg/dL (7-25); CALCIUM SERUM 8.7 mg/dL (8.6-10.3); CARBON DIOXIDE 26.9 mEq/L (21.0-31.0); CHLORIDE 103 mEq/L (98-107); CREATININE - SERUM 0.9 mg/dL (0.7-1.3); GFR AFRICAN-AMERICAN > 60.0 ml/min (>90); GFR NON AFRICAN-AMERICAN > 60.0 ml/min; GLUCOSE 112 mg/dL (70-105); POTASSIUM SERUM 3.8 mEq/L (3.5-5.1); SODIUM SERUM 136 mEq/L (136-145)
--- NOTE | 2018-06-21 08:21 | Diagnostic Imaging Report ---
CHEST X-RAY: AP view INDICATION: Pneumonia COMPARISON: 06/19/2018 FINDINGS: Persistent right upper lobe consolidative changes are seen in the right effusion. Heart size normal. IMPRESSION: Persistent right upper lobe consolidative changes and right effusion. Postobstructive pneumonia and positive neoplastic process should be considered. Clinical correlation is needed.
[2018-06-21] MEDS: Lactobacillus Rhamnosus GG 15 Billion CFU CAP.SPRINK PO SCH (09:09)
[2018-06-21] MEDS: Enoxaparin 80 mg/0.8 mL 0.8mL Syr SUBQ SCH ×2 (09:09→20:54)
--- NOTE | 2018-06-21 19:17 | Cardiology ---
06/20/[address] Pamela Hamlin. M-MODE ECHOCARDIOGRAM: Mitral valve, anterior leaflet of mitral valve shows normal excursion, EF velocity. Posterior leaflet of the mitral valve shows normal excursion. Left ventricular posterior wall shows increased thickness, normal excursion. Interventricular septum shows increased thickness, normal excursion, hypertrophy of the left ventricle, ejection fraction 60%. Left atrium normal. Aortic root shows normal dimension, normal excursion of aortic leaflets. CONCLUSION: Hypertrophy of the left ventricle, ejection fraction 60%. 2D ECHO: Long axis view showed normal sized left ventricle with hypertrophy of the left ventricle. Left atrium normal. Aortic root shows normal dimension, normal excursion of aortic leaflets. Short axis view of mitral valve normal. Short axis view of aortic valve normal. Apical four chamber view showed normal sized left ventricle with hypertrophy of the left ventricle. Left atrium normal. Right ventricular cavity, right atrium normal, no pericardial effusion. CONCLUSION: Hypertrophy of the left ventricle, ejection fraction 60%. Doppler study shows trace mitral regurgitation, mild tricuspid regurgitation, right ventricular systolic pressure 31 mmHg. CONCLUSION: Hypertrophy of the left ventricle, trace mitral regurgitation and mild tricuspid regurgitation. JOB# [id number]
--- NOTE | 2018-06-21 22:40 | General Progress Note ---
Subjective - Review of Systems Service Date: 06/21/18 Subjective: Patient seen and examined feels better afebrile Objective - Results Result Diagrams: 06/21/18 04:50 06/21/18 04:50 Recent Labs: Laboratory Last Values WBC 5.6 Th/cmm (4.8-10.8) 06/21/18 04:50 RBC 3.89 Mil/cmm (4.30-5.70) L 06/21/18 04:50 Hgb 11.5 gm/dL (12-16) L 06/21/18 04:50 Hct 34.3 % (41.0-60) L 06/21/18 04:50 MCV 88.2 fl (80-99) 06/21/18 04:50 MCH 29.6 pg (26.0-30.0) 06/21/18 04:50 MCHC Differential 33.6 pg (28.0-36.0) 06/21/18 04:50 RDW 12.6 % (11.5-20.0) 06/21/18 04:50 Plt Count 371 Th/cmm (150-400) 06/21/18 04:50 MPV 6.9 fl 06/21/18 04:50 Add Manual Diff YES 06/18/18 08:06 Neutrophils % 64.9 % (40.0-80.0) 06/21/18 04:50 Band Neutrophils % 1 % (0-10) 06/18/18 08:06 Lymphocytes % 23.9 % (20.0-50.0) 06/21/18 04:50 Monocytes % 7.0 % (2.0-10.0) 06/21/18 04:50 Eosinophils % 3.0 % (0.0-5.0) 06/21/18 04:50 Basophils % 1.2 % (0.0-2.0) 06/21/18 04:50 Neutrophils (Manual) 65 % (40-80) 06/18/18 08:06 Lymphocytes 30 % (20-50) 06/18/18 08:06 Monocytes 3 % (2-10) 06/18/18 08:06 Eosinophils 1 % (0-5) 06/18/18 08:06 Basophils 0 % (0-3) 06/18/18 08:06 Atypical Lymphocytes 5 % 06/14/18 04:40 Platelet Estimate INCREASED PLATELETS (NORMAL) 06/18/18 08:06 PT 10.8 SECONDS (9.5-11.5) 06/05/18 08:00 INR 1.04 (0.5-1.4) 06/05/18 08:00 PTT (Actin FS) 28.2 SECONDS (26.0-38.0) 06/05/18 08:00 D-Dimer 1240 ng/mL (100-400) H 05/30/18 10:00 Sodium 136 mEq/L (136-145) 06/21/18 04:50 Potassium 3.8 mEq/L (3.5-5.1) 06/21/18 04:50 Chloride 103 mEq/L (98-107) 06/21/18 04:50 Carbon Dioxide 26.9 mEq/L (21.0-31.0) 06/21/18 04:50 Anion Gap 9.9 (7.0-16.0) 06/21/18 04:50 BUN 10 mg/dL (7-25) 06/21/18 04:50 Creatinine 0.9 mg/dL (0.7-1.3) 06/21/18 04:50 Est GFR ( Amer) > 60.0 ml/min (>90) 06/21/18 04:50 Est GFR (Non-Af Amer) > 60.0 ml/min 06/21/18 04:50 BUN/Creatinine Ratio 11.1 06/21/18 04:50 Glucose 112 mg/dL (70-105) H 06/21/18 04:50 POC Glucose 134 MG/DL (70 - 105) H 06/19/18 12:38 Whole Bld Lactic Acid 0.88 mmol/L (0.60-1.99) 06/07/18 00:10 Calcium 8.7 mg/dL (8.6-10.3) 06/21/18 04:50 Total Bilirubin 0.3 mg/dL (0.3-1.0) 06/14/18 04:40 AST 24 U/L (13-39) 06/14/18 04:40 ALT 41 U/L (7-52) 06/14/18 04:40 Alkaline Phosphatase 72 U/L (34-104) 06/14/18 04:40 Troponin I < 0.01 ng/mL (0.01-0.05) L 06/19/18 13:29 C-Reactive Protein 6.2 mg/dL (0.0-0.9) H 06/21/18 04:50 Total Protein 6.1 gm/dL (6.0-8.3) 06/14/18 04:40 Albumin 2.9 gm/dL (4.2-5.5) L 06/14/18 04:40 Globulin 3.2 gm/dL 06/14/18 04:40 Albumin/Globulin Ratio 0.9 (1.0-1.8) L 06/14/18 04:40 Carcinoembryonic Ag 2.1 ng/mL (0.0-4.7) 06/20/18 15:08 Urine Source CLEAN C 06/07/18 00:45 Urine Color YELLOW 06/07/18 00:45 Urine Clarity CLEAR (CLEAR) 06/07/18 00:45 Urine pH 7.0 (4.6 - 8.0) 06/07/18 00:45 Ur Specific [place] 1.015 (1.005-1.030) 06/07/18 00:45 Urine Protein NEGATIVE mg/dL (NEGATIVE) 06/07/18 00:45 Urine Glucose (UA) NEGATIVE mg/dL (NEGATIVE) 06/07/18 00:45 Urine Ketones NEGATIVE mg/dL (NEGATIVE) 06/07/18 00:45 Urine Blood NEGATIVE (NEGATIVE) 06/07/18 00:45 Urine Nitrate NEGATIVE (NEGATIVE) 06/07/18 00:45 Urine Bilirubin NEGATIVE (NEGATIVE) 06/07/18 00:45 Urine Urobilinogen 0.2 E.U./dL (0.2 - 1.0) 06/07/18 00:45 Ur Leukocyte Esterase NEGATIVE (NEGATIVE) 06/07/18 00:45 Urine WBC 0-2 /hpf (0-5) 06/07/18 00:45 Ur Epithelial Cells OCCASIONAL /lpf (FEW) 06/07/18 00:45 Urine Bacteria OCCASIONAL /hpf (NONE SEEN) 06/07/18 00:45 Urine Mucus FEW /lpf (FEW) 18 00:45 Fluid Glucose 106.0 mg/dL 06/05/18 10:45 Fluid Total Protein 3.3 g/dL 08/15/18 10:45 Fluid LDH 579 U/L 06/05/18 10:45 Vancomycin Trough 16.1 ug/mL (5-10) H 06/06/18 09:00 Coccidioides Ab Negative (Neg:<1:2) 06/10/18 04:05 Hepatitis A IgM Ab Negative (Negative) 06/10/18 04:05 Hep Bs Antigen Negative (Negative) 06/10/18 04:05 Hep B Core IgM Ab Negative (Negative) 06/10/18 04:05 Hepatitis C Antibody <0.1 s/co ratio (0.0-0.9) 06/10/18 04:05 HIV 1&2 Antibody Screen NEGATIVE (NEG) 06/07/18 04:15 TB (QFT) Gold In Tube SEE ATTACHED RESULT 06/06/18 20:20 TB Test (QFT) Mitogen SEE ATTACHED RESULT 06/06/18 20:20 TB Test (QFT) Antigen SEE ATTACHED RESULT 06/06/18 20:20 TB Test TB - Nil SEE ATTACHED RESULT 06/06/18 20:20 TB Test (QFT) Interp SEE ATTACHED RESULT 06/06/18 20:20 - Physical Exam Vitals and I&O: Vital Signs Temp 99.8 F 06/21/18 19:00 Pulse 88 06/21/18 22:00 Resp 25 06/21/18 22:00 BP 107/65 06/21/18 22:00 Pulse Ox 93 06/21/18 22:00 Intake & Output 06/21/18 06/21/18 06/22/18 06:59 18:59 06:59 Intake Total 200 580 Output Total 1920 Balance 200 -1340 Weight (lbs) 78.018 kg Intake: Intake, IV Amount 200 100 Piperacillin Sodium/ 200 100 Tazobact 4.5 gm In Sodium Chloride 0.9% 100 ml @ 100 mls/hr IV Q8HR [facility] Rx #:[id number] Oral 480 Output: Urine 1920 Other: # Bowel Movements 1 Weight Source Bedscale Active Medications: Current Medications Acetaminophen (Tylenol Extra Strength) 500 mg PO Q6HR PRN PRN Reason: FEVER Stop: 07/29/18 17:21 Last Admin: 06/20/18 20:10 Dose: 500 mg Albuterol/Ipratropium (Duoneb Neb) 3 ml HHN Q6HRT NAANDA Stop: 07/31/18 18:59 Last Admin: 06/21/18 19:09 Dose: 3 ml Betamethasone/Clotrimazole (Lotrisone Cream) 1 appl TP BID PRN PRN Reason: Itching Stop: 06/23/18 11:29 Last Admin: 06/21/18 02:13 Dose: 1 appl Diphenhydramine HCl (Benadryl) 25 mg PO Q6HR PRN PRN Reason: Itching Stop: 08/06/18 17:21 Last Admin: 06/09/18 21:05 Dose: 25 mg Enoxaparin Sodium (Lovenox) 80 mg SUBQ Q12HR ANANDA Stop: 08/14/18 20:59 Last Admin: 06/21/18 20:54 Dose: 80 mg Fludrocortisone Acetate (Florinef) 0.1 mg PO DAILY [facility] Stop: 08/20/18 16:59 Last Admin: 06/21/18 17:18 Dose: 0.1 mg Piperacillin Sod/Tazobactam (Sod 4.5 gm/ Sodium Chloride) 100 mls @ 100 mls/hr IV Q8HR ANANDA Stop: 08/18/18 20:59 Last Admin: 06/21/18 20:53 Dose: 100 mls/hr Ibuprofen (Motrin) 800 mg PO TID PRN PRN Reason: MILD TO MOD. PAIN Stop: 07/29/18 17:16 Last Admin: 06/08/18 12:24 Dose: 800 mg Lactobacillus Rhamnosus (Culturelle 15b) 1 each PO DAILY ANANDA Stop: 08/04/18 08:59 Last Admin: 06/21/18 09:09 Dose: 1 each Lorazepam (Ativan) 1 mg PO Q6HR PRN; Protocol PRN Reason: Sleeplessness Stop: 08/17/18 17:07 Midodrine (Proamatine) 10 mg PO TID ANANDA Stop: 08/20/18 14:44 Last Admin: 06/21/18 20:55 Dose: 10 mg Miscellaneous (Probiotic Screen) 1 ea PRN PRN PRN Reason: PROTOCOL Stop: 08/03/18 09:44 Miscellaneous (Lovenox Subq Per Pharmacy) 1 ea PRN ANNADA; Protocol Stop: 08/09/18 16:59 Ondansetron HCl (Zofran) 4 mg IV Q6H PRN PRN Reason: NAUSEA Stop: 07/29/18 17:29 Zolpidem Tartrate (Ambien) 10 mg PO HS PRN PRN Reason: Insomnia Stop: 08/10/18 14:43 General: Alert Cardiovascular: Regular rate Lungs: Clear to auscultation Abdomen: Soft, no Tender Extremities: no Edema Neurological: Other (non focal ) Skin: Rash (on the chest wall area) - Procedures Procedures: Procedures Procedure Code Date DRAINAGE OF RIGHT PLEURAL CAVITY, PERC APPROACH, DIAGN [id number] 05/30/18 DRAINAGE OF RIGHT UPPER LUNG LOBE, ENDO, DIAGN [id number] 05/30/18 Assessment/Plan - Assessment Assessment: Fever with hypotension r/o sepsis Bilateral PE pneumonia s/p Hemorrhagic pleural effusion s/p thoracentesis Right UE DVT on anticoagulation Dermatitis better M avium infection per sputum culture (sample 05/21/18) Insomnia - Plan Plan: Sepsis w/u Zosyn started IV fluids Monitor BP PT OT Case discussed with ID agreed with current treatment Nutritional Asmnt/Malnutr-PDOC - Dietary Evaluation Malnutrition Findings (Please click <Entered> for more info): Nutritional Asmnt/Malnutrition Start: 06/03/18 11: 57 Text: Status: Complete Freq: Protocol: Document 06/03/18 12:44 ELEONORA (Rec: 06/03/18 12:48 ELEONORA [email or web address]) Nutritional Asmnt/Malnutrition Patient General Information Nutritional Screening Moderate Risk Pertinent Medical Hx/Surgical Hx no sig medical hx, appendectomy, smokes about 15 cigarettes a day Subjective Information Pt seen lying in bed at time of visit, stating appetite so so. Pt consumed few breakfast today, has no food preference to give. Per EMR, PO intake 25 -50%. Per nurse, pt has DVT to right arm. Current Diet Order/ Nutrition Support regular Pertinent Medications vancomycin Pertinent Labs 05/30 Na 134, glucose 145, Ca 8. 4 Nutritional Hx/Data Height 1.83 m Height (Calculated Centimeters) 182.9 Current Weight (lbs) 87.09 kg Weight (Calculated Kilograms) 87.1 Weight (Calculated Grams) 34646.7 [place] Body Weight 178 Body Mass Index (BMI) 26.0 Weight Status Overweight GI Symptoms GI Symptoms None Last BM not indicated Difficult in: None Skin Integrity/Comment: intact Current %PO Poor (25-49%) Estimated Nutritional Goals BEE in Kcals: Using Current wt Calories/Kcals/Kg 25-30 based IBW 81kg Kcals Calculated 8899-2792 Protein: Using Current wt Protein g/k Protein Calculated 81 Fluid: ml 2024-243ml (1ml/kcal) Nutritional Problem 1. Problem Problem inadequate food intake Etiology decreased appetite Signs/Symptoms: PO intake 25-30% Malnutrition Alert Is there a minimum of two criteria No selected? Query Text:Check all the applicable criteria. A minimum of two criteria are recommended for diagnosis of either severe or non-severe malnutrition. Malnutrition Related to Morbid Obesity Malnutrition related to morbid obesity No Intervention/Recommendation Comments 1. Continue with current diet as ordered. Encouraged oral intake. 2. Monitor PO intake, wt, labs and skin integrity 3. F/U as moderate risk in 3-5 days, 06/06-06/08, PO check Expected Outcomes/Goals Expected Outcomes/Goals 1. PO intake to meet at least 75% of nutritional needs. 2. Wt stability, skin to remain intact, labs to approach WNL.
--- NOTE | 2018-06-21 23:59 | Infectious Disease Prog Note ---
Infectious Disease Subjective - Review of Systems Service Date: 06/21/18 Subjective: One episode of fever. Hypotensive, IV fluid was started. Infectious Disease Objective - Results Result Diagrams: 06/21/18 04:50 06/21/18 04:50 Recent Labs: Laboratory Last Values WBC 5.6 Th/cmm (4.8-10.8) 06/21/18 04:50 RBC 3.89 Mil/cmm (4.30-5.70) L 06/21/18 04:50 Hgb 11.5 gm/dL (12-16) L 06/21/18 04:50 Hct 34.3 % (41.0-60) L 06/21/18 04:50 MCV 88.2 fl (80-99) 06/21/18 04:50 MCH 29.6 pg (26.0-30.0) 06/21/18 04:50 MCHC Differential 33.6 pg (28.0-36.0) 06/21/18 04:50 RDW 12.6 % (11.5-20.0) 06/21/18 04:50 Plt Count 371 Th/cmm (150-400) 06/21/18 04:50 MPV 6.9 fl 06/21/18 04:50 Add Manual Diff YES 06/18/18 08:06 Neutrophils % 64.9 % (40.0-80.0) 06/21/18 04:50 Band Neutrophils % 1 % (0-10) 06/18/18 08:06 Lymphocytes % 23.9 % (20.0-50.0) 06/21/18 04:50 Monocytes % 7.0 % (2.0-10.0) 06/21/18 04:50 Eosinophils % 3.0 % (0.0-5.0) 06/21/18 04:50 Basophils % 1.2 % (0.0-2.0) 06/21/18 04:50 Neutrophils (Manual) 65 % (40-80) 06/18/18 08:06 Lymphocytes 30 % (20-50) 06/18/18 08:06 Monocytes 3 % (2-10) 06/18/18 08:06 Eosinophils 1 % (0-5) 06/18/18 08:06 Basophils 0 % (0-3) 06/18/18 08:06 Atypical Lymphocytes 5 % 06/14/18 04:40 Platelet Estimate INCREASED PLATELETS (NORMAL) 06/18/18 08:06 PT 10.8 SECONDS (9.5-11.5) 06/05/18 08:00 INR 1.04 (0.5-1.4) 06/05/18 08:00 PTT (Actin FS) 28.2 SECONDS (26.0-38.0) 06/05/18 08:00 D-Dimer 1240 ng/mL (100-400) H 05/30/18 10:00 Sodium 136 mEq/L (136-145) 06/21/18 04:50 Potassium 3.8 mEq/L (3.5-5.1) 06/21/18 04:50 Chloride 103 mEq/L (98-107) 06/21/18 04:50 Carbon Dioxide 26.9 mEq/L (21.0-31.0) 06/21/18 04:50 Anion Gap 9.9 (7.0-16.0) 06/21/18 04:50 BUN 10 mg/dL (7-25) 06/21/18 04:50 Creatinine 0.9 mg/dL (0.7-1.3) 06/21/18 04:50 Est GFR ( Amer) > 60.0 ml/min (>90) 06/21/18 04:50 Est GFR (Non-Af Amer) > 60.0 ml/min 06/21/18 04:50 BUN/Creatinine Ratio 11.1 06/21/18 04:50 Glucose 112 mg/dL (70-105) H 06/21/18 04:50 POC Glucose 134 MG/DL (70 - 105) H 06/19/18 12:38 Whole Bld Lactic Acid 0.88 mmol/L (0.60-1.99) 06/07/18 00:10 Calcium 8.7 mg/dL (8.6-10.3) 06/21/18 04:50 Total Bilirubin 0.3 mg/dL (0.3-1.0) 06/14/18 04:40 AST 24 U/L (13-39) 06/14/18 04:40 ALT 41 U/L (7-52) 06/14/18 04:40 Alkaline Phosphatase 72 U/L (34-104) 06/14/18 04:40 Troponin I < 0.01 ng/mL (0.01-0.05) L 06/19/18 13:29 C-Reactive Protein 6.2 mg/dL (0.0-0.9) H 06/21/18 04:50 Total Protein 6.1 gm/dL (6.0-8.3) 06/14/18 04:40 Albumin 2.9 gm/dL (4.2-5.5) L 06/14/18 04:40 Globulin 3.2 gm/dL 06/14/18 04:40 Albumin/Globulin Ratio 0.9 (1.0-1.8) L 06/14/18 04:40 Carcinoembryonic Ag 2.1 ng/mL (0.0-4.7) 06/20/18 15:08 Urine Source CLEAN C 06/07/18 00:45 Urine Color YELLOW 06/07/18 00:45 Urine Clarity CLEAR (CLEAR) 06/07/18 00:45 Urine pH 7.0 (4.6 - 8.0) 06/07/18 00:45 Ur Specific [place] 1.015 (1.005-1.030) 06/07/18 00:45 Urine Protein NEGATIVE mg/dL (NEGATIVE) 06/07/18 00:45 Urine Glucose (UA) NEGATIVE mg/dL (NEGATIVE) 06/07/18 00:45 Urine Ketones NEGATIVE mg/dL (NEGATIVE) 06/07/18 00:45 Urine Blood NEGATIVE (NEGATIVE) 06/07/18 00:45 Urine Nitrate NEGATIVE (NEGATIVE) 06/07/18 00:45 Urine Bilirubin NEGATIVE (NEGATIVE) 06/07/18 00:45 Urine Urobilinogen 0.2 E.U./dL (0.2 - 1.0) 06/07/18 00:45 Ur Leukocyte Esterase NEGATIVE (NEGATIVE) 06/07/18 00:45 Urine WBC 0-2 /hpf (0-5) 06/07/18 00:45 Ur Epithelial Cells OCCASIONAL /lpf (FEW) 06/07/18 00:45 Urine Bacteria OCCASIONAL /hpf (NONE SEEN) 06/07/18 00:45 Urine Mucus FEW /lpf (FEW) 06/07/18 00:45 Fluid Glucose 106.0 mg/dL 06/05/18 10:45 Fluid Total Protein 3.3 g/dL 06/05/18 10:45 Fluid LDH 579 U/L 06/05/18 10:45 Vancomycin Trough 16.1 ug/mL (5-10) H 06/06/18 09:00 Coccidioides Ab Negative (Neg:<1:2) 06/10/18 04:05 Hepatitis A IgM Ab Negative (Negative) 06/10/18 04:05 Hep Bs Antigen Negative (Negative) 06/10/18 04:05 Hep B Core IgM Ab Negative (Negative) 06/10/18 04:05 Hepatitis C Antibody <0.1 s/co ratio (0.0-0.9) 06/10/18 04:05 HIV 1&2 Antibody Screen NEGATIVE (NEG) 06/07/18 04:15 TB (QFT) Gold In Tube SEE ATTACHED RESULT 06/06/18 20:20 TB Test (QFT) Mitogen SEE ATTACHED RESULT 06/06/18 20:20 TB Test (QFT) Antigen SEE ATTACHED RESULT 06/06/18 20:20 TB Test TB - Nil SEE ATTACHED RESULT 06/06/18 20:20 TB Test (QFT) Interp SEE ATTACHED RESULT 06/06/18 20:20 - Physical Exam Vitals and I&O: Vital Signs Temp 99.8 F 06/21/18 19:00 Pulse 88 06/21/18 22:00 Resp 25 06/21/18 22:00 BP 107/65 06/21/18 22:00 Pulse Ox 93 06/21/18 22:00 Intake & Output 06/21/18 06/21/18 06/22/18 06:59 18:59 06:59 Intake Total 200 580 Output Total 1920 Balance 200 -1340 Weight (lbs) 78.018 kg Intake: Intake, IV Amount 200 100 Piperacillin Sodium/ 200 100 Tazobact 4.5 gm In Sodium Chloride 0.9% 100 ml @ 100 mls/hr IV Q8HR A[facility] Rx #:[id number] Oral 480 Output: Urine 1920 Other: # Bowel Movements 1 Weight Source Bedscale Active Medications: Current Medications Acetaminophen (Tylenol Extra Strength) 500 mg PO Q6HR PRN PRN Reason: FEVER Stop: 07/29/18 17:21 Last Admin: 06/20/18 20:10 Dose: 500 mg Albuterol/Ipratropium (Duoneb Neb) 3 ml HHN Q6HRT ANANDA Stop: 07/31/18 18:59 Last Admin: 06/21/18 19:09 Dose: 3 ml Betamethasone/Clotrimazole (Lotrisone Cream) 1 appl TP BID PRN PRN Reason: Itching Stop: 06/23/18 11:29 Last Admin: 06/21/18 02:13 Dose: 1 appl Diphenhydramine HCl (Benadryl) 25 mg PO Q6HR PRN PRN Reason: Itching Stop: 08/06/18 17:21 Last Admin: 06/09/18 21:05 Dose: 25 mg Enoxaparin Sodium (Lovenox) 80 mg SUBQ Q12HR ANANDA Stop: 08/14/18 20:59 Last Admin: 06/21/18 20:54 Dose: 80 mg Fludrocortisone Acetate (Florinef) 0.1 mg PO DAILY ANAN[facility] Stop: 08/20/18 16:59 Last Admin: 06/21/18 17:18 Dose: 0.1 mg Piperacillin Sod/Tazobactam (Sod 4.5 gm/ Sodium Chloride) 100 mls @ 100 mls/hr IV Q8HR A[facility] Stop: 08/18/18 20:59 Last Admin: 06/21/18 20:53 Dose: 100 mls/hr Ibuprofen (Motrin) 800 mg PO TID PRN PRN Reason: MILD TO MOD. PAIN Stop: 07/29/18 17:16 Last Admin: 06/08/18 12:24 Dose: 800 mg Lactobacillus Rhamnosus (Culturelle 15b) 1 each PO DAILY ANANDA Stop: 08/04/18 08:59 Last Admin: 06/21/18 09:09 Dose: 1 each Lorazepam (Ativan) 1 mg PO Q6HR PRN; Protocol PRN Reason: Sleeplessness Stop: 08/17/18 17:07 Midodrine (Proamatine) 10 mg PO TID ANANDA Stop: 08/20/18 14:44 Last Admin: 06/21/18 20:55 Dose: 10 mg Miscellaneous (Probiotic Screen) 1 ea PRN PRN PRN Reason: PROTOCOL Stop: 08/03/18 09:44 Miscellaneous (Lovenox Subq Per Pharmacy) 1 ea PRN ANANDA; Protocol Stop: 08/09/18 16:59 Ondansetron HCl (Zofran) 4 mg IV Q6H PRN PRN Reason: NAUSEA Stop: 07/29/18 17:29 Zolpidem Tartrate (Ambien) 10 mg PO HS PRN PRN Reason: Insomnia Stop: 08/10/18 14:43 General: no acute distress HEENT: atraumatic, normocephalic, PERRLA, EOMI Neck: supple, no thyromegaly Cardiovascular: S1S2, regular Lungs: clear to auscultation bilaterally, clear to percussion Abdomen: soft, no tender, no distended, no mass Extremities: no cyanosis, no clubbing, no edema Neurological: awake, alert, oriented Skin: intact - Procedures Procedures: Procedures Procedure Code Date DRAINAGE OF RIGHT PLEURAL CAVITY, PERC APPROACH, DIAGN [id number] 05/30/18 DRAINAGE OF RIGHT UPPER LUNG LOBE, ENDO, DIAGN [id number] 05/30/18 Infectious Disease Assmt/Plan - Assessment Assessment: 1. Pneumonmia. RUL, one AFB smear positive on culture, smears are negative >2 weeks. it was finalized as M. avium. 2. PE. 3. DVT. 4. Hemorrhagic pleural effusion. 5. Rash. Resolved. 6. Hypotension. r/o sepsis - Plan Plan: Continue Zosyn. Patient does not meet criteria of MAC pneumonia at this time. TB is ruled out. May f/u cxr in one month or so, if there is no resolution. or pending culture grow same bacteria and meets criteria, then treat accordingly. May also consider Lung biopsy if infiltrates persists. Check sepsis w/u. Nutritional Asmnt/Malnutr-PDOC - Dietary Evaluation Malnutrition Findings (Please click <Entered> for more info): Nutritional Asmnt/Malnutrition Start: 06/03/18 11: 57 Text: Status: Complete Freq: Protocol: Document 06/03/18 12:44 ELEONORA (Rec: 06/03/18 12:48 ELEONORA [email or web address]) Nutritional Asmnt/Malnutrition Patient General Information Nutritional Screening Moderate Risk Pertinent Medical Hx/Surgical Hx no sig medical hx, appendectomy, smokes about 15 cigarettes a day Subjective Information Pt seen lying in bed at time of visit, stating appetite so so. Pt consumed few breakfast today, has no food preference to give. Per EMR, PO intake 25 -50%. Per nurse, pt has DVT to right arm. Current Diet Order/ Nutrition Support regular Pertinent Medications vancomycin Pertinent Labs 05/30 Na 134, glucose 145, Ca 8. 4 Nutritional Hx/Data Height 1.83 m Height (Calculated Centimeters) 182.9 Current Weight (lbs) 87.09 kg Weight (Calculated Kilograms) 87.1 Weight (Calculated Grams) 30036.7 [place] Body Weight 178 Body Mass Index (BMI) 26.0 Weight Status Overweight GI Symptoms GI Symptoms None Last BM not indicated Difficult in: None Skin Integrity/Comment: intact Current %PO Poor (25-49%) Estimated Nutritional Goals BEE in Kcals: Using Current wt Calories/Kcals/Kg 25-30 based IBW 81kg Kcals Calculated 3633-5225 Protein: Using Current wt Protein g/k Protein Calculated 81 Fluid: ml 2024-243ml (1ml/kcal) Nutritional Problem 1. Problem Problem inadequate food intake Etiology decreased appetite Signs/Symptoms: PO intake 25-30% Malnutrition Alert Is there a minimum of two criteria No selected? Query Text:Check all the applicable criteria. A minimum of two criteria are recommended for diagnosis of either severe or non-severe malnutrition. Malnutrition Related to Morbid Obesity Malnutrition related to morbid obesity No Intervention/Recommendation Comments 1. Continue with current diet as ordered. Encouraged oral intake. 2. Monitor PO intake, wt, labs and skin integrity 3. F/U as moderate risk in 3-5 days, 06/06-06/08, PO check Expected Outcomes/Goals Expected Outcomes/Goals 1. PO intake to meet at least 75% of nutritional needs. 2. Wt stability, skin to remain intact, labs to approach WNL.
[2018-06-22] MEDS: Albuterol/Ipratropium Neb 3 ML AERS HHN SCH ×4 (00:28→19:00)
[2018-06-22] MEDS: Acetaminophen 500 MG TAB PO PRN (03:02)
[2018-06-22] MEDS: Enoxaparin 80 mg/0.8 mL 0.8mL Syr SUBQ SCH (08:44)
[2018-06-22] MEDS: Lactobacillus Rhamnosus GG 15 Billion CFU CAP.SPRINK PO SCH (08:44)
[2018-06-23] MEDS: Albuterol/Ipratropium Neb 3 ML AERS HHN SCH ×4 (01:37→19:10)
[2018-06-23] MEDS: Betamethasone/Clotrimazole Cream 15 gm Tube TP PRN ×2 (04:12→10:34)
[2018-06-23] MEDS: Lactobacillus Rhamnosus GG 15 Billion CFU CAP.SPRINK PO SCH (09:10)
--- NOTE | 2018-06-23 18:39 | Infectious Disease Prog Note ---
Infectious Disease Subjective - Review of Systems Service Date: 06/23/18 Subjective: No fever. Blood pressure improved. No more dizziness. Infectious Disease Objective - Results Result Diagrams: 06/21/18 04:50 06/21/18 04:50 Recent Labs: Laboratory Last Values WBC 5.6 Th/cmm (4.8-10.8) 06/21/18 04:50 RBC 3.89 Mil/cmm (4.30-5.70) L 06/21/18 04:50 Hgb 11.5 gm/dL (12-16) L 06/21/18 04:50 Hct 34.3 % (41.0-60) L 06/21/18 04:50 MCV 88.2 fl (80-99) 06/21/18 04:50 MCH 29.6 pg (26.0-30.0) 06/21/18 04:50 MCHC Differential 33.6 pg (28.0-36.0) 06/21/18 04:50 RDW 12.6 % (11.5-20.0) 06/21/18 04:50 Plt Count 371 Th/cmm (150-400) 06/21/18 04:50 MPV 6.9 fl 06/21/18 04:50 Add Manual Diff YES 06/18/18 08:06 Neutrophils % 64.9 % (40.0-80.0) 06/21/18 04:50 Band Neutrophils % 1 % (0-10) 06/18/18 08:06 Lymphocytes % 23.9 % (20.0-50.0) 06/21/18 04:50 Monocytes % 7.0 % (2.0-10.0) 06/21/18 04:50 Eosinophils % 3.0 % (0.0-5.0) 06/21/18 04:50 Basophils % 1.2 % (0.0-2.0) 06/21/18 04:50 Neutrophils (Manual) 65 % (40-80) 06/18/18 08:06 Lymphocytes 30 % (20-50) 06/18/18 08:06 Monocytes 3 % (2-10) 06/18/18 08:06 Eosinophils 1 % (0-5) 06/18/18 08:06 Basophils 0 % (0-3) 06/18/18 08:06 Atypical Lymphocytes 5 % 06/14/18 04:40 Platelet Estimate INCREASED PLATELETS (NORMAL) 06/18/18 08:06 PT 10.8 SECONDS (9.5-11.5) 06/05/18 08:00 INR 1.04 (0.5-1.4) 06/05/18 08:00 PTT (Actin FS) 28.2 SECONDS (26.0-38.0) 06/05/18 08:00 D-Dimer 1240 ng/mL (100-400) H 05/30/18 10:00 Sodium 136 mEq/L (136-145) 06/21/18 04:50 Potassium 3.8 mEq/L (3.5-5.1) 06/21/18 04:50 Chloride 103 mEq/L (98-107) 06/21/18 04:50 Carbon Dioxide 26.9 mEq/L (21.0-31.0) 06/21/18 04:50 Anion Gap 9.9 (7.0-16.0) 06/21/18 04:50 BUN 10 mg/dL (7-25) 06/21/18 04:50 Creatinine 0.9 mg/dL (0.7-1.3) 06/21/18 04:50 Est GFR ( Amer) > 60.0 ml/min (>90) 06/21/18 04:50 Est GFR (Non-Af Amer) > 60.0 ml/min 06/21/18 04:50 BUN/Creatinine Ratio 11.1 06/21/18 04:50 Glucose 112 mg/dL (70-105) H 06/21/18 04:50 POC Glucose 134 MG/DL (70 - 105) H 06/19/18 12:38 Whole Bld Lactic Acid 0.88 mmol/L (0.60-1.99) 06/07/18 00:10 Calcium 8.7 mg/dL (8.6-10.3) 06/21/18 04:50 Total Bilirubin 0.3 mg/dL (0.3-1.0) 06/14/18 04:40 AST 24 U/L (13-39) 06/14/18 04:40 ALT 41 U/L (7-52) 06/14/18 04:40 Alkaline Phosphatase 72 U/L (34-104) 06/14/18 04:40 Troponin I < 0.01 ng/mL (0.01-0.05) L 06/19/18 13:29 C-Reactive Protein 6.2 mg/dL (0.0-0.9) H 06/21/18 04:50 Total Protein 6.1 gm/dL (6.0-8.3) 06/14/18 04:40 Albumin 2.9 gm/dL (4.2-5.5) L 06/14/18 04:40 Globulin 3.2 gm/dL 06/14/18 04:40 Albumin/Globulin Ratio 0.9 (1.0-1.8) L 06/14/18 04:40 Carcinoembryonic Ag 2.1 ng/mL (0.0-4.7) 06/20/18 15:08 Urine Source CLEAN C 06/07/18 00:45 Urine Color YELLOW 06/07/18 00:45 Urine Clarity CLEAR (CLEAR) 06/07/18 00:45 Urine pH 7.0 (4.6 - 8.0) 06/07/18 00:45 Ur Specific [place] 1.015 (1.005-1.030) 06/07/18 00:45 Urine Protein NEGATIVE mg/dL (NEGATIVE) 06/07/18 00:45 Urine Glucose (UA) NEGATIVE mg/dL (NEGATIVE) 06/07/18 00:45 Urine Ketones NEGATIVE mg/dL (NEGATIVE) 06/07/18 00:45 Urine Blood NEGATIVE (NEGATIVE) 06/07/18 00:45 Urine Nitrate NEGATIVE (NEGATIVE) 06/07/18 00:45 Urine Bilirubin NEGATIVE (NEGATIVE) 06/07/18 00:45 Urine Urobilinogen 0.2 E.U./dL (0.2 - 1.0) 06/07/18 00:45 Ur Leukocyte Esterase NEGATIVE (NEGATIVE) 06/07/18 00:45 Urine WBC 0-2 /hpf (0-5) 06/07/18 00:45 Ur Epithelial Cells OCCASIONAL /lpf (FEW) 06/07/18 00:45 Urine Bacteria OCCASIONAL /hpf (NONE SEEN) 06/07/18 00:45 Urine Mucus FEW /lpf (FEW) 06/07/18 00:45 Fluid Glucose 106.0 mg/dL 06/05/18 10:45 Fluid Total Protein 3.3 g/dL 06/05/18 10:45 Fluid LDH 579 U/L 06/05/18 10:45 Vancomycin Trough 16.1 ug/mL (5-10) H 06/06/18 09:00 Coccidioides Ab Negative (Neg:<1:2) 06/10/18 04:05 Hepatitis A IgM Ab Negative (Negative) 06/10/18 04:05 Hep Bs Antigen Negative (Negative) 06/10/18 04:05 Hep B Core IgM Ab Negative (Negative) 06/10/18 04:05 Hepatitis C Antibody <0.1 s/co ratio (0.0-0.9) 06/10/18 04:05 HIV 1&2 Antibody Screen NEGATIVE (NEG) 06/07/18 04:15 TB (QFT) Gold In Tube SEE ATTACHED RESULT 06/06/18 20:20 TB Test (QFT) Mitogen SEE ATTACHED RESULT 06/06/18 20:20 TB Test (QFT) Antigen SEE ATTACHED RESULT 06/06/18 20:20 TB Test TB - Nil SEE ATTACHED RESULT 06/06/18 20:20 TB Test (QFT) Interp SEE ATTACHED RESULT 06/06/18 20:20 - Physical Exam Vitals and I&O: Vital Signs Temp 97.8 F 06/23/18 18:00 Pulse 76 06/23/18 18:00 Resp 18 06/23/18 18:00 BP 98/61 06/23/18 18:00 Pulse Ox 97 06/23/18 18:00 Intake & Output 06/22/18 06/23/18 06/23/18 18:59 06:59 18:59 Intake Total 900 1050 1180 Output Total 600 750 650 Balance 300 300 530 Weight (lbs) 77.564 kg 77.564 kg 78.16 kg Intake: Intake, IV Amount 100 200 100 Piperacillin Sodium/ 100 200 100 Tazobact 4.5 gm In Sodium Chloride 0.9% 100 ml @ 100 mls/hr IV Q8HR [facility] Rx #:[id number] Oral 120 063 1599 Output: Urine 600 750 650 Other: # Bowel Movements 1 1 Stool Characteristics Soft Brown Weight Source Bedscale Bedscale Bedscale Active Medications: Current Medications Acetaminophen (Tylenol Extra Strength) 500 mg PO Q6HR PRN PRN Reason: FEVER Stop: 07/29/18 17:21 Last Admin: 06/22/18 03:02 Dose: 500 mg Albuterol/Ipratropium (Duoneb Neb) 3 ml HHN Q6HRT ANANDA Stop: 07/31/18 18:59 Last Admin: 06/23/18 12:32 Dose: 3 ml Diphenhydramine HCl (Benadryl) 25 mg PO Q6HR PRN PRN Reason: Itching Stop: 08/06/18 17:21 Last Admin: 06/09/18 21:05 Dose: 25 mg Fludrocortisone Acetate (Florinef) 0.1 mg PO DAILY ANANDA Stop: 08/20/18 16:59 Last Admin: 06/23/18 09:10 Dose: 0.1 mg Piperacillin Sod/Tazobactam (Sod 4.5 gm/ Sodium Chloride) 100 mls @ 100 mls/hr IV Q8HR ANANDA Stop: 08/18/18 20:59 Last Infusion: 06/23/18 13:15 Dose: Infused Ibuprofen (Motrin) 800 mg PO TID PRN PRN Reason: MILD TO MOD. PAIN Stop: 07/29/18 17:16 Last Admin: 06/08/18 12:24 Dose: 800 mg Lactobacillus Rhamnosus (Culturelle 15b) 1 each PO DAILY ANANDA Stop: 08/04/18 08:59 Last Admin: 06/23/18 09:10 Dose: 1 each Lorazepam (Ativan) 1 mg PO Q6HR PRN; Protocol PRN Reason: Sleeplessness Stop: 08/17/18 17:07 Midodrine (Proamatine) 10 mg PO TID ANANDA Stop: 08/20/18 14:44 Last Admin: 06/23/18 13:36 Dose: 10 mg Miscellaneous (Probiotic Screen) 1 ea MC PRN PRN PRN Reason: PROTOCOL Stop: 08/03/18 09:44 Ondansetron HCl (Zofran) 4 mg IV Q6H PRN PRN Reason: NAUSEA Stop: 07/29/18 17:29 Rivaroxaban (Xarelto) 10 mg PO DAILY [facility] Stop: 08/22/18 08:59 Last Admin: 06/23/18 09:10 Dose: 10 mg Zolpidem Tartrate (Ambien) 10 mg PO HS PRN PRN Reason: Insomnia Stop: 08/10/18 14:43 General: no acute distress HEENT: atraumatic, normocephalic, PERRLA, EOMI Neck: supple, no thyromegaly Cardiovascular: S1S2, regular Lungs: clear to auscultation bilaterally, clear to percussion Abdomen: soft, no tender, no distended, no mass Extremities: no cyanosis, no clubbing, no edema Neurological: awake, alert, oriented Skin: intact - Procedures Procedures: Procedures Procedure Code Date DRAINAGE OF RIGHT PLEURAL CAVITY, PERC APPROACH, DIAGN [id number] 05/30/18 DRAINAGE OF RIGHT UPPER LUNG LOBE, ENDO, DIAGN [id number] 05/30/18 Infectious Disease Assmt/Plan - Assessment Assessment: 1. Pneumonmia. RUL, one AFB smear positive on culture, smears are negative >2 weeks. it was finalized as M. avium. 2. PE. 3. DVT. 4. Hemorrhagic pleural effusion. 5. Rash. Resolved. 6. Hypotension. r/o sepsis - Plan Plan: Continue Zosyn. Patient does not meet criteria of MAC pneumonia at this time. TB is ruled out. May f/u cxr in one month or so, if there is no resolution. or pending culture grow same bacteria and meets criteria, then treat accordingly. May also consider Lung biopsy if infiltrates persists. Check sepsis w/u. Nutritional Asmnt/Malnutr-PDOC - Dietary Evaluation Malnutrition Findings (Please click <Entered> for more info): Nutritional Asmnt/Malnutrition Start: 06/03/18 11: 57 Text: Status: Complete Freq: Protocol: Document 06/03/18 12:44 ELEONORA (Rec: 06/03/18 12:48 LANA [email or web address]) Nutritional Asmnt/Malnutrition Patient General Information Nutritional Screening Moderate Risk Pertinent Medical Hx/Surgical Hx no sig medical hx, appendectomy, smokes about 15 cigarettes a day Subjective Information Pt seen lying in bed at time of visit, stating appetite so so. Pt consumed few breakfast today, has no food preference to give. Per EMR, PO intake 25 -50%. Per nurse, pt has DVT to right arm. Current Diet Order/ Nutrition Support regular Pertinent Medications vancomycin Pertinent Labs 05/30 Na 134, glucose 145, Ca 8. 4 Nutritional Hx/Data Height 1.83 m Height (Calculated Centimeters) 182.9 Current Weight (lbs) 87.09 kg Weight (Calculated Kilograms) 87.1 Weight (Calculated Grams) 83378.7 [place] Body Weight 178 Body Mass Index (BMI) 26.0 Weight Status Overweight GI Symptoms GI Symptoms None Last BM not indicated Difficult in: None Skin Integrity/Comment: intact Current %PO Poor (25-49%) Estimated Nutritional Goals BEE in Kcals: Using Current wt Calories/Kcals/Kg 25-30 based IBW 81kg Kcals Calculated 4137-5068 Protein: Using Current wt Protein g/k Protein Calculated 81 Fluid: ml 2024-243ml (1ml/kcal) Nutritional Problem 1. Problem Problem inadequate food intake Etiology decreased appetite Signs/Symptoms: PO intake 25-30% Malnutrition Alert Is there a minimum of two criteria No selected? Query Text:Check all the applicable criteria. A minimum of two criteria are recommended for diagnosis of either severe or non-severe malnutrition. Malnutrition Related to Morbid Obesity Malnutrition related to morbid obesity No Intervention/Recommendation Comments 1. Continue with current diet as ordered. Encouraged oral intake. 2. Monitor PO intake, wt, labs and skin integrity 3. F/U as moderate risk in 3-5 days, 06/06-06/08, PO check Expected Outcomes/Goals Expected Outcomes/Goals 1. PO intake to meet at least 75% of nutritional needs. 2. Wt stability, skin to remain intact, labs to approach WNL.
[2018-06-24] MEDS: Albuterol/Ipratropium Neb 3 ML AERS HHN SCH ×4 (01:53→19:19)
[2018-06-24] MEDS: Lactobacillus Rhamnosus GG 15 Billion CFU CAP.SPRINK PO SCH (09:10)
--- NOTE | 2018-06-24 18:15 | General Progress Note ---
Subjective - Review of Systems Service Date: 06/24/18 Subjective: Patient seen and examined doing better Objective - Results Result Diagrams: 06/21/18 04:50 06/21/18 04:50 Recent Labs: Laboratory Last Values WBC 5.6 Th/cmm (4.8-10.8) 06/21/18 04:50 RBC 3.89 Mil/cmm (4.30-5.70) L 06/21/18 04:50 Hgb 11.5 gm/dL (12-16) L 06/21/18 04:50 Hct 34.3 % (41.0-60) L 06/21/18 04:50 MCV 88.2 fl (80-99) 06/21/18 04:50 MCH 29.6 pg (26.0-30.0) 06/21/18 04:50 MCHC Differential 33.6 pg (28.0-36.0) 06/21/18 04:50 RDW 12.6 % (11.5-20.0) 06/21/18 04:50 Plt Count 371 Th/cmm (150-400) 06/21/18 04:50 MPV 6.9 fl 06/21/18 04:50 Add Manual Diff YES 06/18/18 08:06 Neutrophils % 64.9 % (40.0-80.0) 06/21/18 04:50 Band Neutrophils % 1 % (0-10) 06/18/18 08:06 Lymphocytes % 23.9 % (20.0-50.0) 06/21/18 04:50 Monocytes % 7.0 % (2.0-10.0) 06/21/18 04:50 Eosinophils % 3.0 % (0.0-5.0) 06/21/18 04:50 Basophils % 1.2 % (0.0-2.0) 06/21/18 04:50 Neutrophils (Manual) 65 % (40-80) 06/18/18 08:06 Lymphocytes 30 % (20-50) 06/18/18 08:06 Monocytes 3 % (2-10) 06/18/18 08:06 Eosinophils 1 % (0-5) 06/18/18 08:06 Basophils 0 % (0-3) 06/18/18 08:06 Atypical Lymphocytes 5 % 06/14/18 04:40 Platelet Estimate INCREASED PLATELETS (NORMAL) 06/18/18 08:06 PT 10.8 SECONDS (9.5-11.5) 06/05/18 08:00 INR 1.04 (0.5-1.4) 06/05/18 08:00 PTT (Actin FS) 28.2 SECONDS (26.0-38.0) 06/05/18 08:00 D-Dimer 1240 ng/mL (100-400) H 05/30/18 10:00 Sodium 136 mEq/L (136-145) 06/21/18 04:50 Potassium 3.8 mEq/L (3.5-5.1) 06/21/18 04:50 Chloride 103 mEq/L (98-107) 06/21/18 04:50 Carbon Dioxide 26.9 mEq/L (21.0-31.0) 06/21/18 04:50 Anion Gap 9.9 (7.0-16.0) 06/21/18 04:50 BUN 10 mg/dL (7-25) 06/21/18 04:50 Creatinine 0.9 mg/dL (0.7-1.3) 06/21/18 04:50 Est GFR ( Amer) > 60.0 ml/min (>90) 06/21/18 04:50 Est GFR (Non-Af Amer) > 60.0 ml/min 06/21/18 04:50 BUN/Creatinine Ratio 11.1 06/21/18 04:50 Glucose 112 mg/dL (70-105) H 06/21/18 04:50 POC Glucose 134 MG/DL (70 - 105) H 06/19/18 12:38 Whole Bld Lactic Acid 0.88 mmol/L (0.60-1.99) 06/07/18 00:10 Calcium 8.7 mg/dL (8.6-10.3) 06/21/18 04:50 Total Bilirubin 0.3 mg/dL (0.3-1.0) 06/14/18 04:40 AST 24 U/L (13-39) 06/14/18 04:40 ALT 41 U/L (7-52) 06/14/18 04:40 Alkaline Phosphatase 72 U/L (34-104) 06/14/18 04:40 Troponin I < 0.01 ng/mL (0.01-0.05) L 06/19/18 13:29 C-Reactive Protein 6.2 mg/dL (0.0-0.9) H 06/21/18 04:50 Total Protein 6.1 gm/dL (6.0-8.3) 06/14/18 04:40 Albumin 2.9 gm/dL (4.2-5.5) L 06/14/18 04:40 Globulin 3.2 gm/dL 06/14/18 04:40 Albumin/Globulin Ratio 0.9 (1.0-1.8) L 06/14/18 04:40 Carcinoembryonic Ag 2.1 ng/mL (0.0-4.7) 06/20/18 15:08 Urine Source CLEAN C 06/07/18 00:45 Urine Color YELLOW 06/07/18 00:45 Urine Clarity CLEAR (CLEAR) 06/07/18 00:45 Urine pH 7.0 (4.6 - 8.0) 06/07/18 00:45 Ur Specific [place] 1.015 (1.005-1.030) 06/07/18 00:45 Urine Protein NEGATIVE mg/dL (NEGATIVE) 06/07/18 00:45 Urine Glucose (UA) NEGATIVE mg/dL (NEGATIVE) 06/07/18 00:45 Urine Ketones NEGATIVE mg/dL (NEGATIVE) 06/07/18 00:45 Urine Blood NEGATIVE (NEGATIVE) 06/07/18 00:45 Urine Nitrate NEGATIVE (NEGATIVE) 06/07/18 00:45 Urine Bilirubin NEGATIVE (NEGATIVE) 06/07/18 00:45 Urine Urobilinogen 0.2 E.U./dL (0.2 - 1.0) 06/07/18 00:45 Ur Leukocyte Esterase NEGATIVE (NEGATIVE) 06/07/18 00:45 Urine WBC 0-2 /hpf (0-5) 06/07/18 00:45 Ur Epithelial Cells OCCASIONAL /lpf (FEW) 06/07/18 00:45 Urine Bacteria OCCASIONAL /hpf (NONE SEEN) 18 00:45 Urine Mucus FEW /lpf (FEW) 06/07/18 00:45 Fluid Glucose 106.0 mg/dL 06/05/18 10:45 Fluid Total Protein 3.3 g/dL 06/05/18 10:45 Fluid LDH 579 U/L 06/05/18 10:45 Vancomycin Trough 16.1 ug/mL (5-10) H 06/06/18 09:00 Coccidioides Ab Negative (Neg:<1:2) 06/10/18 04:05 Hepatitis A IgM Ab Negative (Negative) 06/10/18 04:05 Hep Bs Antigen Negative (Negative) 06/10/18 04:05 Hep B Core IgM Ab Negative (Negative) 06/10/18 04:05 Hepatitis C Antibody <0.1 s/co ratio (0.0-0.9) 06/10/18 04:05 HIV 1&2 Antibody Screen NEGATIVE (NEG) 06/07/18 04:15 TB (QFT) Gold In Tube SEE ATTACHED RESULT 06/06/18 20:20 TB Test (QFT) Mitogen SEE ATTACHED RESULT 06/06/18 20:20 TB Test (QFT) Antigen SEE ATTACHED RESULT 06/06/18 20:20 TB Test TB - Nil SEE ATTACHED RESULT 06/06/18 20:20 TB Test (QFT) Interp SEE ATTACHED RESULT 06/06/18 20:20 - Physical Exam Vitals and I&O: Vital Signs Temp 98.8 F 06/24/18 14:00 Pulse 86 06/24/18 14:00 Resp 14 06/24/18 14:00 BP 99/46 06/24/18 14:00 Pulse Ox 97 06/24/18 14:00 Intake & Output 06/23/18 06/24/18 06/24/18 18:59 06:59 18:59 Intake Total 9806 748 6329 Output Total 650 450 450 Balance 530 -50 670 Weight (lbs) 78.16 kg 79.832 kg 80.087 kg Intake: Intake, IV Amount 100 200 100 Piperacillin Sodium/ 100 200 100 Tazobact 4.5 gm In Sodium Chloride 0.9% 100 ml @ 100 mls/hr IV Q8HR [facility] Rx #:[id number] Oral 7793 970 1355 Output: Urine 650 450 450 Other: # Bowel Movements 1 1 Stool Characteristics Soft Soft Brown Brown Weight Source Bedscale Bedscale Bedscale Active Medications: Current Medications Acetaminophen (Tylenol Extra Strength) 500 mg PO Q6HR PRN PRN Reason: FEVER Stop: 07/29/18 17:21 Last Admin: 06/22/18 03:02 Dose: 500 mg Albuterol/Ipratropium (Duoneb Neb) 3 ml HHN Q6HRT ANANDA Stop: 07/31/18 18:59 Last Admin: 06/24/18 13:17 Dose: 3 ml Diphenhydramine HCl (Benadryl) 25 mg PO Q6HR PRN PRN Reason: Itching Stop: 08/06/18 17:21 Last Admin: 06/09/18 21:05 Dose: 25 mg Fludrocortisone Acetate (Florinef) 0.1 mg PO DAILY ANANDA Stop: 08/20/18 16:59 Last Admin: 06/24/18 09:10 Dose: 0.1 mg Piperacillin Sod/Tazobactam (Sod 4.5 gm/ Sodium Chloride) 100 mls @ 100 mls/hr IV Q8HR ANANDA Stop: 08/18/18 20:59 Last Infusion: 06/24/18 13:20 Dose: Infused Ibuprofen (Motrin) 800 mg PO TID PRN PRN Reason: MILD TO MOD. PAIN Stop: 07/29/18 17:16 Last Admin: 06/08/18 12:24 Dose: 800 mg Lactobacillus Rhamnosus (Culturelle 15b) 1 each PO DAILY ANANDA Stop: 08/04/18 08:59 Last Admin: 06/24/18 09:10 Dose: 1 each Lorazepam (Ativan) 1 mg PO Q6HR PRN; Protocol PRN Reason: Sleeplessness Stop: 08/17/18 17:07 Last Admin: 06/23/18 22:19 Dose: 1 mg Midodrine (Proamatine) 10 mg PO TID ANANDA Stop: 08/20/18 14:44 Last Admin: 06/24/18 14:03 Dose: 10 mg Miscellaneous (Probiotic Screen) 1 ea MC PRN PRN PRN Reason: PROTOCOL Stop: 08/03/18 09:44 Ondansetron HCl (Zofran) 4 mg IV Q6H PRN PRN Reason: NAUSEA Stop: 07/29/18 17:29 Rivaroxaban (Xarelto) 10 mg PO DAILY [facility] Stop: 08/22/18 08:59 Last Admin: 06/24/18 09:10 Dose: 10 mg Zolpidem Tartrate (Ambien) 10 mg PO HS PRN PRN Reason: Insomnia Stop: 08/10/18 14:43 General: Alert Cardiovascular: Regular rate Lungs: Clear to auscultation Abdomen: Soft, no Tender Extremities: no Edema Neurological: Other (non focal ) Skin: Rash (on the chest wall area) - Procedures Procedures: Procedures Procedure Code Date DRAINAGE OF RIGHT PLEURAL CAVITY, PERC APPROACH, DIAGN [id number] 05/30/18 DRAINAGE OF RIGHT UPPER LUNG LOBE, ENDO, DIAGN [id number] 05/30/18 Assessment/Plan - Assessment Assessment: Fever with hypotension r/o sepsis Bilateral PE pneumonia s/p Hemorrhagic pleural effusion s/p thoracentesis Right UE DVT on anticoagulation Dermatitis better M avium infection per sputum culture (sample 05/21/18) Insomnia - Plan Plan: Patient doing better Fever resolved Case discussed with ID Zosyn Monitor BP PT OT Nutritional Asmnt/Malnutr-PDOC - Dietary Evaluation Malnutrition Findings (Please click <Entered> for more info): Nutritional Asmnt/Malnutrition Start: 06/03/18 11: 57 Text: Status: Complete Freq: Protocol: Document 06/03/18 12:44 ELEONORA (Rec: 06/03/18 12:48 ELEONORA NORRIS-FN) Nutritional Asmnt/Malnutrition Patient General Information Nutritional Screening Moderate Risk Pertinent Medical Hx/Surgical Hx no sig medical hx, appendectomy, smokes about 15 cigarettes a day Subjective Information Pt seen lying in bed at time of visit, stating appetite so so. Pt consumed few breakfast today, has no food preference to give. Per EMR, PO intake 25 -50%. Per nurse, pt has DVT to right arm. Current Diet Order/ Nutrition Support regular Pertinent Medications vancomycin Pertinent Labs 05/30 Na 134, glucose 145, Ca 8. 4 Nutritional Hx/Data Height 1.83 m Height (Calculated Centimeters) 182.9 Current Weight (lbs) 87.09 kg Weight (Calculated Kilograms) 87.1 Weight (Calculated Grams) 03396.7 [place] Body Weight 178 Body Mass Index (BMI) 26.0 Weight Status Overweight GI Symptoms GI Symptoms None Last BM not indicated Difficult in: None Skin Integrity/Comment: intact Current %PO Poor (25-49%) Estimated Nutritional Goals BEE in Kcals: Using Current wt Calories/Kcals/Kg 25-30 based IBW 81kg Kcals Calculated Protein: Using Current wt Protein g/k Protein Calculated 81 Fluid: ml 2024-2430ml (1ml/kcal) Nutritional Problem 1. Problem Problem inadequate food intake Etiology decreased appetite Signs/Symptoms: PO intake 25-30% Malnutrition Alert Is there a minimum of two criteria No selected? Query Text:Check all the applicable criteria. A minimum of two criteria are recommended for diagnosis of either severe or non-severe malnutrition. Malnutrition Related to Morbid Obesity Malnutrition related to morbid obesity No Intervention/Recommendation Comments 1. Continue with current diet as ordered. Encouraged oral intake. 2. Monitor PO intake, wt, labs and skin integrity 3. F/U as moderate risk in 3-5 days, 06/06-06/08, PO check Expected Outcomes/Goals Expected Outcomes/Goals 1. PO intake to meet at least 75% of nutritional needs. 2. Wt stability, skin to remain intact, labs to approach WNL.
[2018-06-24] MEDS: Betamethasone/Clotrimazole Cream 15 gm Tube TP PRN (18:21)
--- NOTE | 2018-06-25 | Infectious Disease Prog Note ---
Infectious Disease Subjective - Review of Systems Service Date: 06/24/18 Subjective: No fever. Blood pressure improved. No more dizziness. Infectious Disease Objective - Results Result Diagrams: 06/21/18 04:50 06/21/18 04:50 Recent Labs: Laboratory Last Values WBC 5.6 Th/cmm (4.8-10.8) 06/21/18 04:50 RBC 3.89 Mil/cmm (4.30-5.70) L 06/21/18 04:50 Hgb 11.5 gm/dL (12-16) L 06/21/18 04:50 Hct 34.3 % (41.0-60) L 06/21/18 04:50 MCV 88.2 fl (80-99) 06/21/18 04:50 MCH 29.6 pg (26.0-30.0) 06/21/18 04:50 MCHC Differential 33.6 pg (28.0-36.0) 06/21/18 04:50 RDW 12.6 % (11.5-20.0) 06/21/18 04:50 Plt Count 371 Th/cmm (150-400) 06/21/18 04:50 MPV 6.9 fl 06/21/18 04:50 Add Manual Diff YES 06/18/18 08:06 Neutrophils % 64.9 % (40.0-80.0) 06/21/18 04:50 Band Neutrophils % 1 % (0-10) 06/18/18 08:06 Lymphocytes % 23.9 % (20.0-50.0) 06/21/18 04:50 Monocytes % 7.0 % (2.0-10.0) 06/21/18 04:50 Eosinophils % 3.0 % (0.0-5.0) 06/21/18 04:50 Basophils % 1.2 % (0.0-2.0) 06/21/18 04:50 Neutrophils (Manual) 65 % (40-80) 06/18/18 08:06 Lymphocytes 30 % (20-50) 06/18/18 08:06 Monocytes 3 % (2-10) 06/18/18 08:06 Eosinophils 1 % (0-5) 06/18/18 08:06 Basophils 0 % (0-3) 06/18/18 08:06 Atypical Lymphocytes 5 % 06/14/18 04:40 Platelet Estimate INCREASED PLATELETS (NORMAL) 06/18/18 08:06 PT 10.8 SECONDS (9.5-11.5) 06/05/18 08:00 INR 1.04 (0.5-1.4) 06/05/18 08:00 PTT (Actin FS) 28.2 SECONDS (26.0-38.0) 06/05/18 08:00 D-Dimer 1240 ng/mL (100-400) H 05/30/18 10:00 Sodium 136 mEq/L (136-145) 06/21/18 04:50 Potassium 3.8 mEq/L (3.5-5.1) 06/21/18 04:50 Chloride 103 mEq/L (98-107) 06/21/18 04:50 Carbon Dioxide 26.9 mEq/L (21.0-31.0) 06/21/18 04:50 Anion Gap 9.9 (7.0-16.0) 06/21/18 04:50 BUN 10 mg/dL (7-25) 06/21/18 04:50 Creatinine 0.9 mg/dL (0.7-1.3) 06/21/18 04:50 Est GFR ( Amer) > 60.0 ml/min (>90) 06/21/18 04:50 Est GFR (Non-Af Amer) > 60.0 ml/min 06/21/18 04:50 BUN/Creatinine Ratio 11.1 06/21/18 04:50 Glucose 112 mg/dL (70-105) H 06/21/18 04:50 POC Glucose 134 MG/DL (70 - 105) H 06/19/18 12:38 Whole Bld Lactic Acid 0.88 mmol/L (0.60-1.99) 06/07/18 00:10 Calcium 8.7 mg/dL (8.6-10.3) 06/21/18 04:50 Total Bilirubin 0.3 mg/dL (0.3-1.0) 06/14/18 04:40 AST 24 U/L (13-39) 06/14/18 04:40 ALT 41 U/L (7-52) 06/14/18 04:40 Alkaline Phosphatase 72 U/L (34-104) 06/14/18 04:40 Troponin I < 0.01 ng/mL (0.01-0.05) L 06/19/18 13:29 C-Reactive Protein 6.2 mg/dL (0.0-0.9) H 06/21/18 04:50 Total Protein 6.1 gm/dL (6.0-8.3) 06/14/18 04:40 Albumin 2.9 gm/dL (4.2-5.5) L 06/14/18 04:40 Globulin 3.2 gm/dL 06/14/18 04:40 Albumin/Globulin Ratio 0.9 (1.0-1.8) L 06/14/18 04:40 Carcinoembryonic Ag 2.1 ng/mL (0.0-4.7) 06/20/18 15:08 Urine Source CLEAN C 06/07/18 00:45 Urine Color YELLOW 06/07/18 00:45 Urine Clarity CLEAR (CLEAR) 06/07/18 00:45 Urine pH 7.0 (4.6 - 8.0) 06/07/18 00:45 Ur Specific [place] 1.015 (1.005-1.030) 06/07/18 00:45 Urine Protein NEGATIVE mg/dL (NEGATIVE) 06/07/18 00:45 Urine Glucose (UA) NEGATIVE mg/dL (NEGATIVE) 06/07/18 00:45 Urine Ketones NEGATIVE mg/dL (NEGATIVE) 06/07/18 00:45 Urine Blood NEGATIVE (NEGATIVE) 06/07/18 00:45 Urine Nitrate NEGATIVE (NEGATIVE) 06/07/18 00:45 Urine Bilirubin NEGATIVE (NEGATIVE) 06/07/18 00:45 Urine Urobilinogen 0.2 E.U./dL (0.2 - 1.0) 06/07/18 00:45 Ur Leukocyte Esterase NEGATIVE (NEGATIVE) 06/07/18 00:45 Urine WBC 0-2 /hpf (0-5) 06/07/18 00:45 Ur Epithelial Cells OCCASIONAL /lpf (FEW) 06/07/18 00:45 Urine Bacteria OCCASIONAL /hpf (NONE SEEN) 06/07/18 00:45 Urine Mucus FEW /lpf (FEW) 06/07/18 00:45 Fluid Glucose 106.0 mg/dL 06/05/18 10:45 Fluid Total Protein 3.3 g/dL 06/05/18 10:45 Fluid LDH 579 U/L 06/05/18 10:45 Vancomycin Trough 16.1 ug/mL (5-10) H 06/06/18 09:00 Coccidioides Ab Negative (Neg:<1:2) 06/10/18 04:05 Hepatitis A IgM Ab Negative (Negative) 06/10/18 04:05 Hep Bs Antigen Negative (Negative) 06/10/18 04:05 Hep B Core IgM Ab Negative (Negative) 06/10/18 04:05 Hepatitis C Antibody <0.1 s/co ratio (0.0-0.9) 06/10/18 04:05 HIV 1&2 Antibody Screen NEGATIVE (NEG) 06/07/18 04:15 TB (QFT) Gold In Tube SEE ATTACHED RESULT 06/06/18 20:20 TB Test (QFT) Mitogen SEE ATTACHED RESULT 06/06/18 20:20 TB Test (QFT) Antigen SEE ATTACHED RESULT 06/06/18 20:20 TB Test TB - Nil SEE ATTACHED RESULT 06/06/18 20:20 TB Test (QFT) Interp SEE ATTACHED RESULT 06/06/18 20:20 - Physical Exam Vitals and I&O: Vital Signs Temp 98.6 F 06/24/18 18:00 Pulse 74 06/24/18 22:00 Resp 14 06/24/18 22:00 BP 92/48 06/24/18 22:00 Pulse Ox 97 06/24/18 22:00 Intake & Output 06/24/18 06/24/18 06/25/18 06:59 18:59 06:59 Intake Total 400 1120 100 Output Total 450 450 Balance -50 670 100 Weight (lbs) 79.832 kg 80.087 kg Intake: Intake, IV Amount 200 100 100 Piperacillin Sodium/ 200 100 100 Tazobact 4.5 gm In Sodium Chloride 0.9% 100 ml @ 100 mls/hr IV Q8HR [facility] Rx #:[id number] Oral 200 1020 Output: Urine 450 450 Other: # Bowel Movements 1 Stool Characteristics Soft Brown Weight Source Bedscale Bedscale Active Medications: Current Medications Acetaminophen (Tylenol Extra Strength) 500 mg PO Q6HR PRN PRN Reason: FEVER Stop: 07/29/18 17:21 Last Admin: 06/22/18 03:02 Dose: 500 mg Albuterol/Ipratropium (Duoneb Neb) 3 ml HHN Q6HRT ANANDA Stop: 07/31/18 18:59 Last Admin: 06/24/18 19:19 Dose: 3 ml Diphenhydramine HCl (Benadryl) 25 mg PO Q6HR PRN PRN Reason: Itching Stop: 08/06/18 17:21 Last Admin: 06/09/18 21:05 Dose: 25 mg Fludrocortisone Acetate (Florinef) 0.1 mg PO DAILY A[facility] Stop: 08/20/18 16:59 Last Admin: 06/24/18 09:10 Dose: 0.1 mg Piperacillin Sod/Tazobactam (Sod 4.5 gm/ Sodium Chloride) 100 mls @ 100 mls/hr IV Q8HR ANANDA Stop: 08/18/18 20:59 Last Infusion: 06/24/18 22:15 Dose: Infused Ibuprofen (Motrin) 800 mg PO TID PRN PRN Reason: MILD TO MOD. PAIN Stop: 07/29/18 17:16 Last Admin: 06/08/18 12:24 Dose: 800 mg Lactobacillus Rhamnosus (Culturelle 15b) 1 each PO DAILY ANANDA Stop: 08/04/18 08:59 Last Admin: 06/24/18 09:10 Dose: 1 each Lorazepam (Ativan) 1 mg PO Q6HR PRN; Protocol PRN Reason: Sleeplessness Stop: 08/17/18 17:07 Last Admin: 06/24/18 21:12 Dose: 1 mg Midodrine (Proamatine) 10 mg PO TID ANANDA Stop: 08/20/18 14:44 Last Admin: 06/24/18 21:12 Dose: 10 mg Miscellaneous (Probiotic Screen) 1 ea MC PRN PRN PRN Reason: PROTOCOL Stop: 08/03/18 09:44 Ondansetron HCl (Zofran) 4 mg IV Q6H PRN PRN Reason: NAUSEA Stop: 07/29/18 17:29 Rivaroxaban (Xarelto) 10 mg PO DAILY [facility] Stop: 08/22/18 08:59 Last Admin: 06/24/18 09:10 Dose: 10 mg Zolpidem Tartrate (Ambien) 10 mg PO HS PRN PRN Reason: Insomnia Stop: 08/10/18 14:43 General: no acute distress, well developed, well nourished HEENT: atraumatic, normocephalic, PERRLA Neck: supple, no thyromegaly Cardiovascular: S1S2, regular Lungs: clear to auscultation bilaterally, clear to percussion Abdomen: soft, no tender, no distended Extremities: no cyanosis, no clubbing, no edema Neurological: awake, alert, oriented Skin: intact - Procedures Procedures: Procedures Procedure Code Date DRAINAGE OF RIGHT PLEURAL CAVITY, PERC APPROACH, DIAGN [id number] 05/30/18 DRAINAGE OF RIGHT UPPER LUNG LOBE, ENDO, DIAGN [id number] 05/30/18 Infectious Disease Assmt/Plan - Assessment Assessment: 1. Pneumonmia. RUL, one AFB smear positive on culture, smears are negative >2 weeks. it was finalized as M. avium. 2. PE. 3. DVT. 4. Hemorrhagic pleural effusion. 5. Rash. Resolved. 6. Hypotension. r/o sepsis - Plan Plan: Continue Zosyn. Patient does not meet criteria of MAC pneumonia at this time. TB is ruled out. May f/u cxr in one month or so, if there is no resolution. or pending culture grow same bacteria and meets criteria, then treat accordingly. May also consider Lung biopsy if infiltrates persists. Nutritional Asmnt/Malnutr-PDOC - Dietary Evaluation Malnutrition Findings (Please click <Entered> for more info): Nutritional Asmnt/Malnutrition Start: 06/03/18 11: 57 Text: Status: Complete Freq: Protocol: Document 06/03/18 12:44 LCHARJITG (Rec: 06/03/18 12:48 LANA [email or web address]) Nutritional Asmnt/Malnutrition Patient General Information Nutritional Screening Moderate Risk Pertinent Medical Hx/Surgical Hx no sig medical hx, appendectomy, smokes about 15 cigarettes a day Subjective Information Pt seen lying in bed at time of visit, stating appetite so so. Pt consumed few breakfast today, has no food preference to give. Per EMR, PO intake 25 -50%. Per nurse, pt has DVT to right arm. Current Diet Order/ Nutrition Support regular Pertinent Medications vancomycin Pertinent Labs 05/30 Na 134, glucose 145, Ca 8. 4 Nutritional Hx/Data Height 1.83 m Height (Calculated Centimeters) 182.9 Current Weight (lbs) 87.09 kg Weight (Calculated Kilograms) 87.1 Weight (Calculated Grams) 48187.7 [place] Body Weight 178 Body Mass Index (BMI) 26.0 Weight Status Overweight GI Symptoms GI Symptoms None Last BM not indicated Difficult in: None Skin Integrity/Comment: intact Current %PO Poor (25-49%) Estimated Nutritional Goals BEE in Kcals: Using Current wt Calories/Kcals/Kg 25-30 based IBW 81kg Kcals Calculated 3571-4532 Protein: Using Current wt Protein g/k Protein Calculated 81 Fluid: ml 2024-243ml (1ml/kcal) Nutritional Problem 1. Problem Problem inadequate food intake Etiology decreased appetite Signs/Symptoms: PO intake 25-30% Malnutrition Alert Is there a minimum of two criteria No selected? Query Text:Check all the applicable criteria. A minimum of two criteria are recommended for diagnosis of either severe or non-severe malnutrition. Malnutrition Related to Morbid Obesity Malnutrition related to morbid obesity No Intervention/Recommendation Comments 1. Continue with current diet as ordered. Encouraged oral intake. 2. Monitor PO intake, wt, labs and skin integrity 3. F/U as moderate risk in 3-5 days, 06/06-06/08, PO check Expected Outcomes/Goals Expected Outcomes/Goals 1. PO intake to meet at least 75% of nutritional needs. 2. Wt stability, skin to remain intact, labs to approach WNL.
[2018-06-25] MEDS: Albuterol/Ipratropium Neb 3 ML AERS HHN SCH ×3 (07:07→12:07)
[2018-06-25] MEDS: Lactobacillus Rhamnosus GG 15 Billion CFU CAP.SPRINK PO SCH (09:07)
--- NOTE | 2018-06-25 12:43 | Infectious Disease Prog Note ---
Infectious Disease Subjective - Review of Systems Service Date: 06/25/18 Subjective: No fever. Blood pressure improved. No more dizziness. Infectious Disease Objective - Results Result Diagrams: 06/21/18 04:50 06/21/18 04:50 Recent Labs: Laboratory Last Values WBC 5.6 Th/cmm (4.8-10.8) 06/21/18 04:50 RBC 3.89 Mil/cmm (4.30-5.70) L 06/21/18 04:50 Hgb 11.5 gm/dL (12-16) L 06/21/18 04:50 Hct 34.3 % (41.0-60) L 06/21/18 04:50 MCV 88.2 fl (80-99) 06/21/18 04:50 MCH 29.6 pg (26.0-30.0) 06/21/18 04:50 MCHC Differential 33.6 pg (28.0-36.0) 06/21/18 04:50 RDW 12.6 % (11.5-20.0) 06/21/18 04:50 Plt Count 371 Th/cmm (150-400) 06/21/18 04:50 MPV 6.9 fl 06/21/18 04:50 Add Manual Diff YES 06/18/18 08:06 Neutrophils % 64.9 % (40.0-80.0) 06/21/18 04:50 Band Neutrophils % 1 % (0-10) 06/18/18 08:06 Lymphocytes % 23.9 % (20.0-50.0) 06/21/18 04:50 Monocytes % 7.0 % (2.0-10.0) 06/21/18 04:50 Eosinophils % 3.0 % (0.0-5.0) 06/21/18 04:50 Basophils % 1.2 % (0.0-2.0) 06/21/18 04:50 Neutrophils (Manual) 65 % (40-80) 06/18/18 08:06 Lymphocytes 30 % (20-50) 06/18/18 08:06 Monocytes 3 % (2-10) 06/18/18 08:06 Eosinophils 1 % (0-5) 06/18/18 08:06 Basophils 0 % (0-3) 06/18/18 08:06 Atypical Lymphocytes 5 % 06/14/18 04:40 Platelet Estimate INCREASED PLATELETS (NORMAL) 06/18/18 08:06 PT 10.8 SECONDS (9.5-11.5) 06/05/18 08:00 INR 1.04 (0.5-1.4) 06/05/18 08:00 PTT (Actin FS) 28.2 SECONDS (26.0-38.0) 06/05/18 08:00 D-Dimer 1240 ng/mL (100-400) H 05/30/18 10:00 Sodium 136 mEq/L (136-145) 06/21/18 04:50 Potassium 3.8 mEq/L (3.5-5.1) 06/21/18 04:50 Chloride 103 mEq/L (98-107) 06/21/18 04:50 Carbon Dioxide 26.9 mEq/L (21.0-31.0) 06/21/18 04:50 Anion Gap 9.9 (7.0-16.0) 06/21/18 04:50 BUN 10 mg/dL (7-25) 06/21/18 04:50 Creatinine 0.9 mg/dL (0.7-1.3) 06/21/18 04:50 Est GFR ( Amer) > 60.0 ml/min (>90) 06/21/18 04:50 Est GFR (Non-Af Amer) > 60.0 ml/min 06/21/18 04:50 BUN/Creatinine Ratio 11.1 06/21/18 04:50 Glucose 112 mg/dL (70-105) H 06/21/18 04:50 POC Glucose 134 MG/DL (70 - 105) H 06/19/18 12:38 Whole Bld Lactic Acid 0.88 mmol/L (0.60-1.99) 06/07/18 00:10 Calcium 8.7 mg/dL (8.6-10.3) 06/21/18 04:50 Total Bilirubin 0.3 mg/dL (0.3-1.0) 06/14/18 04:40 AST 24 U/L (13-39) 06/14/18 04:40 ALT 41 U/L (7-52) 06/14/18 04:40 Alkaline Phosphatase 72 U/L (34-104) 06/14/18 04:40 Troponin I < 0.01 ng/mL (0.01-0.05) L 06/19/18 13:29 C-Reactive Protein 6.2 mg/dL (0.0-0.9) H 06/21/18 04:50 Total Protein 6.1 gm/dL (6.0-8.3) 06/14/18 04:40 Albumin 2.9 gm/dL (4.2-5.5) L 06/14/18 04:40 Globulin 3.2 gm/dL 06/14/18 04:40 Albumin/Globulin Ratio 0.9 (1.0-1.8) L 06/14/18 04:40 Carcinoembryonic Ag 2.1 ng/mL (0.0-4.7) 06/20/18 15:08 Urine Source CLEAN C 06/07/18 00:45 Urine Color YELLOW 06/07/18 00:45 Urine Clarity CLEAR (CLEAR) 06/07/18 00:45 Urine pH 7.0 (4.6 - 8.0) 06/07/18 00:45 Ur Specific [place] 1.015 (1.005-1.030) 06/07/18 00:45 Urine Protein NEGATIVE mg/dL (NEGATIVE) 06/07/18 00:45 Urine Glucose (UA) NEGATIVE mg/dL (NEGATIVE) 06/07/18 00:45 Urine Ketones NEGATIVE mg/dL (NEGATIVE) 06/07/18 00:45 Urine Blood NEGATIVE (NEGATIVE) 06/07/18 00:45 Urine Nitrate NEGATIVE (NEGATIVE) 06/07/18 00:45 Urine Bilirubin NEGATIVE (NEGATIVE) 06/07/18 00:45 Urine Urobilinogen 0.2 E.U./dL (0.2 - 1.0) 06/07/18 00:45 Ur Leukocyte Esterase NEGATIVE (NEGATIVE) 06/07/18 00:45 Urine WBC 0-2 /hpf (0-5) 06/07/18 00:45 Ur Epithelial Cells OCCASIONAL /lpf (FEW) 06/07/18 00:45 Urine Bacteria OCCASIONAL /hpf (NONE SEEN) 06/07/18 00:45 Urine Mucus FEW /lpf (FEW) 06/07/18 00:45 Fluid Glucose 106.0 mg/dL 06/05/18 10:45 Fluid Total Protein 3.3 g/dL 06/05/18 10:45 Fluid LDH 579 U/L 06/05/18 10:45 Vancomycin Trough 16.1 ug/mL (5-10) H 06/06/18 09:00 Coccidioides Ab Negative (Neg:<1:2) 06/10/18 04:05 Hepatitis A IgM Ab Negative (Negative) 06/10/18 04:05 Hep Bs Antigen Negative (Negative) 06/10/18 04:05 Hep B Core IgM Ab Negative (Negative) 06/10/18 04:05 Hepatitis C Antibody <0.1 s/co ratio (0.0-0.9) 06/10/18 04:05 HIV 1&2 Antibody Screen NEGATIVE (NEG) 06/07/18 04:15 TB (QFT) Gold In Tube SEE ATTACHED RESULT 06/06/18 20:20 TB Test (QFT) Mitogen SEE ATTACHED RESULT 06/06/18 20:20 TB Test (QFT) Antigen SEE ATTACHED RESULT 06/06/18 20:20 TB Test TB - Nil SEE ATTACHED RESULT 06/06/18 20:20 TB Test (QFT) Interp SEE ATTACHED RESULT 06/06/18 20:20 - Physical Exam Vitals and I&O: Vital Signs Temp 99.6 F 06/25/18 11:59 Pulse 84 06/25/18 12:07 Resp 18 06/25/18 12:07 BP 99/62 06/25/18 11:59 Pulse Ox 98 06/25/18 12:07 Intake & Output 06/24/18 06/25/18 06/25/18 18:59 06:59 18:59 Intake Total 1120 100 Output Total 450 Balance 670 100 Weight (lbs) 80.087 kg Intake: Intake, IV Amount 100 100 Piperacillin Sodium/ 100 100 Tazobact 4.5 gm In Sodium Chloride 0.9% 100 ml @ 100 mls/hr IV Q8HR [facility] Rx #:[id number] Oral 1020 Output: Urine 450 Other: # Bowel Movements 1 Stool Characteristics Soft Brown Weight Source Bedscale Active Medications: Current Medications Acetaminophen (Tylenol Extra Strength) 500 mg PO Q6HR PRN PRN Reason: FEVER Stop: 07/29/18 17:21 Last Admin: 06/22/18 03:02 Dose: 500 mg Albuterol/Ipratropium (Duoneb Neb) 3 ml HHN Q6HRT ANANDA Stop: 07/31/18 18:59 Last Admin: 06/25/18 12:07 Dose: 3 ml Diphenhydramine HCl (Benadryl) 25 mg PO Q6HR PRN PRN Reason: Itching Stop: 08/06/18 17:21 Last Admin: 06/09/18 21:05 Dose: 25 mg Fludrocortisone Acetate (Florinef) 0.1 mg PO DAILY [facility] Stop: 08/20/18 16:59 Last Admin: 06/25/18 09:06 Dose: 0.1 mg Piperacillin Sod/Tazobactam (Sod 4.5 gm/ Sodium Chloride) 100 mls @ 100 mls/hr IV Q8HR [facility] Stop: 08/18/18 20:59 Last Admin: 06/25/18 04:44 Dose: 100 mls/hr Ibuprofen (Motrin) 800 mg PO TID PRN PRN Reason: MILD TO MOD. PAIN Stop: 07/29/18 17:16 Last Admin: 06/08/18 12:24 Dose: 800 mg Lactobacillus Rhamnosus (Culturelle 15b) 1 each PO DAILY [facility] Stop: 08/04/18 08:59 Last Admin: 06/25/18 09:07 Dose: 1 each Lorazepam (Ativan) 1 mg PO Q6HR PRN; Protocol PRN Reason: Sleeplessness Stop: 08/17/18 17:07 Last Admin: 06/24/18 21:12 Dose: 1 mg Midodrine (Proamatine) 10 mg PO TID [facility] Stop: 08/20/18 14:44 Last Admin: 06/25/18 09:06 Dose: 10 mg Miscellaneous (Probiotic Screen) 1 ea MC PRN PRN PRN Reason: PROTOCOL Stop: 08/03/18 09:44 Ondansetron HCl (Zofran) 4 mg IV Q6H PRN PRN Reason: NAUSEA Stop: 07/29/18 17:29 Rivaroxaban (Xarelto) 10 mg PO DAILY [facility] Stop: 08/22/18 08:59 Last Admin: 06/25/18 09:07 Dose: 10 mg Zolpidem Tartrate (Ambien) 10 mg PO HS PRN PRN Reason: Insomnia Stop: 08/10/18 14:43 General: no acute distress, well developed, well nourished HEENT: atraumatic, normocephalic, PERRLA Neck: supple, no thyromegaly Cardiovascular: S1S2, regular Lungs: clear to auscultation bilaterally, clear to percussion Abdomen: soft, no tender, no distended Extremities: no cyanosis, no clubbing, no edema - Procedures Procedures: Procedures Procedure Code Date DRAINAGE OF RIGHT PLEURAL CAVITY, PERC APPROACH, DIAGN [id number] 05/30/18 DRAINAGE OF RIGHT UPPER LUNG LOBE, ENDO, DIAGN [id number] 05/30/18 Infectious Disease Assmt/Plan - Assessment Assessment: 1. Pneumonmia. RUL, one AFB smear positive on culture. it was finalized as M. avium. 2. PE. 3. DVT. 4. Hemorrhagic pleural effusion. treated. 5. Rash. Resolved. - Plan Plan: Continue Zosyn Change it to augmentin for 5 days. Patient does not meet criteria of MAC pneumonia at this time. TB is ruled out. May f/u cxr in one month or so, if there is no resolution. or pending culture grow same bacteria and meets criteria, then treat accordingly. May also consider Lung biopsy if infiltrates persists. Nutritional Asmnt/Malnutr-PDOC - Dietary Evaluation Malnutrition Findings (Please click <Entered> for more info): Nutritional Asmnt/Malnutrition Start: 06/03/18 11: 57 Text: Status: Complete Freq: Protocol: Document 06/03/18 12:44 LCHENG (Rec: 06/03/18 12:48 LCHENG [email or web address]) Nutritional Asmnt/Malnutrition Patient General Information Nutritional Screening Moderate Risk Pertinent Medical Hx/Surgical Hx no sig medical hx, appendectomy, smokes about 15 cigarettes a day Subjective Information Pt seen lying in bed at time of visit, stating appetite so so. Pt consumed few breakfast today, has no food preference to give. Per EMR, PO intake 25 -50%. Per nurse, pt has DVT to right arm. Current Diet Order/ Nutrition Support regular Pertinent Medications vancomycin Pertinent Labs 05/30 Na 134, glucose 145, Ca 8. 4 Nutritional Hx/Data Height 1.83 m Height (Calculated Centimeters) 182.9 Current Weight (lbs) 87.09 kg Weight (Calculated Kilograms) 87.1 Weight (Calculated Grams) 33519.7 [place] Body Weight 178 Body Mass Index (BMI) 26.0 Weight Status Overweight GI Symptoms GI Symptoms None Last BM not indicated Difficult in: None Skin Integrity/Comment: intact Current %PO Poor (25-49%) Estimated Nutritional Goals BEE in Kcals: Using Current wt Calories/Kcals/Kg 25-30 based IBW 81kg Kcals Calculated 9571-6799 Protein: Using Current wt Protein g/k Protein Calculated 81 Fluid: ml 2024-2430ml (1ml/kcal) Nutritional Problem 1. Problem Problem inadequate food intake Etiology decreased appetite Signs/Symptoms: PO intake 25-30% Malnutrition Alert Is there a minimum of two criteria No selected? Query Text:Check all the applicable criteria. A minimum of two criteria are recommended for diagnosis of either severe or non-severe malnutrition. Malnutrition Related to Morbid Obesity Malnutrition related to morbid obesity No Intervention/Recommendation Comments 1. Continue with current diet as ordered. Encouraged oral intake. 2. Monitor PO intake, wt, labs and skin integrity 3. F/U as moderate risk in 3-5 days, 06/06-06/08, PO check Expected Outcomes/Goals Expected Outcomes/Goals 1. PO intake to meet at least 75% of nutritional needs. 2. Wt stability, skin to remain intact, labs to approach WNL.
--- NOTE | 2018-06-25 21:47 | General Progress Note ---
Subjective - Review of Systems Service Date: 06/25/18 Subjective: late entry : Patient seen and examined doing better denied any complaints Objective - Results Result Diagrams: 06/21/18 04:50 06/21/18 04:50 Recent Labs: Laboratory Last Values WBC 5.6 Th/cmm (4.8-10.8) 06/21/18 04:50 RBC 3.89 Mil/cmm (4.30-5.70) L 06/21/18 04:50 Hgb 11.5 gm/dL (12-16) L 06/21/18 04:50 Hct 34.3 % (41.0-60) L 06/21/18 04:50 MCV 88.2 fl (80-99) 06/21/18 04:50 MCH 29.6 pg (26.0-30.0) 06/21/18 04:50 MCHC Differential 33.6 pg (28.0-36.0) 06/21/18 04:50 RDW 12.6 % (11.5-20.0) 06/21/18 04:50 Plt Count 371 Th/cmm (150-400) 06/21/18 04:50 MPV 6.9 fl 06/21/18 04:50 Add Manual Diff YES 06/18/18 08:06 Neutrophils % 64.9 % (40.0-80.0) 06/21/18 04:50 Band Neutrophils % 1 % (0-10) 06/18/18 08:06 Lymphocytes % 23.9 % (20.0-50.0) 06/21/18 04:50 Monocytes % 7.0 % (2.0-10.0) 06/21/18 04:50 Eosinophils % 3.0 % (0.0-5.0) 06/21/18 04:50 Basophils % 1.2 % (0.0-2.0) 06/21/18 04:50 Neutrophils (Manual) 65 % (40-80) 06/18/18 08:06 Lymphocytes 30 % (20-50) 06/18/18 08:06 Monocytes 3 % (2-10) 06/18/18 08:06 Eosinophils 1 % (0-5) 06/18/18 08:06 Basophils 0 % (0-3) 06/18/18 08:06 Atypical Lymphocytes 5 % 06/14/18 04:40 Platelet Estimate INCREASED PLATELETS (NORMAL) 06/18/18 08:06 PT 10.8 SECONDS (9.5-11.5) 06/05/18 08:00 INR 1.04 (0.5-1.4) 06/05/18 08:00 PTT (Actin FS) 28.2 SECONDS (26.0-38.0) 06/05/18 08:00 D-Dimer 1240 ng/mL (100-400) H 05/30/18 10:00 Sodium 136 mEq/L (136-145) 06/21/18 04:50 Potassium 3.8 mEq/L (3.5-5.1) 06/21/18 04:50 Chloride 103 mEq/L (98-107) 06/21/18 04:50 Carbon Dioxide 26.9 mEq/L (21.0-31.0) 06/21/18 04:50 Anion Gap 9.9 (7.0-16.0) 06/21/18 04:50 BUN 10 mg/dL (7-25) 06/21/18 04:50 Creatinine 0.9 mg/dL (0.7-1.3) 06/21/18 04:50 Est GFR ( Amer) > 60.0 ml/min (>90) 06/21/18 04:50 Est GFR (Non-Af Amer) > 60.0 ml/min 06/21/18 04:50 BUN/Creatinine Ratio 11.1 06/21/18 04:50 Glucose 112 mg/dL (70-105) H 06/21/18 04:50 POC Glucose 134 MG/DL (70 - 105) H 06/19/18 12:38 Whole Bld Lactic Acid 0.88 mmol/L (0.60-1.99) 06/07/18 00:10 Calcium 8.7 mg/dL (8.6-10.3) 06/21/18 04:50 Total Bilirubin 0.3 mg/dL (0.3-1.0) 06/14/18 04:40 AST 24 U/L (13-39) 06/14/18 04:40 ALT 41 U/L (7-52) 06/14/18 04:40 Alkaline Phosphatase 72 U/L (34-104) 06/14/18 04:40 Troponin I < 0.01 ng/mL (0.01-0.05) L 06/19/18 13:29 C-Reactive Protein 6.2 mg/dL (0.0-0.9) H 06/21/18 04:50 Total Protein 6.1 gm/dL (6.0-8.3) 06/14/18 04:40 Albumin 2.9 gm/dL (4.2-5.5) L 06/14/18 04:40 Globulin 3.2 gm/dL 06/14/18 04:40 Albumin/Globulin Ratio 0.9 (1.0-1.8) L 06/14/18 04:40 Carcinoembryonic Ag 2.1 ng/mL (0.0-4.7) 06/20/18 15:08 Urine Source CLEAN C 06/07/18 00:45 Urine Color YELLOW 06/07/18 00:45 Urine Clarity CLEAR (CLEAR) 06/07/18 00:45 Urine pH 7.0 (4.6 - 8.0) 06/07/18 00:45 Ur Specific [place] 1.015 (1.005-1.030) 06/07/18 00:45 Urine Protein NEGATIVE mg/dL (NEGATIVE) 06/07/18 00:45 Urine Glucose (UA) NEGATIVE mg/dL (NEGATIVE) 06/07/18 00:45 Urine Ketones NEGATIVE mg/dL (NEGATIVE) 06/07/18 00:45 Urine Blood NEGATIVE (NEGATIVE) 06/07/18 00:45 Urine Nitrate NEGATIVE (NEGATIVE) 06/07/18 00:45 Urine Bilirubin NEGATIVE (NEGATIVE) 06/07/18 00:45 Urine Urobilinogen 0.2 E.U./dL (0.2 - 1.0) 06/07/18 00:45 Ur Leukocyte Esterase NEGATIVE (NEGATIVE) 06/07/18 00:45 Urine WBC 0-2 /hpf (0-5) 06/07/18 00:45 Ur Epithelial Cells OCCASIONAL /lpf (FEW) 06/07/18 00:45 Urine Bacteria OCCASIONAL /hpf (NONE SEEN) 06/07/18 00:45 Urine Mucus FEW /lpf (FEW) 18 00:45 Fluid Glucose 106.0 mg/dL 06/05/18 10:45 Fluid Total Protein 3.3 g/dL 06/05/18 10:45 Fluid LDH 579 U/L 06/05/18 10:45 Vancomycin Trough 16.1 ug/mL (5-10) H 06/06/18 09:00 ANCA Screen Negative 06/21/18 04:50 Coccidioides Ab Negative (Neg:<1:2) 06/10/18 04:05 Hepatitis A IgM Ab Negative (Negative) 06/10/18 04:05 Hep Bs Antigen Negative (Negative) 06/10/18 04:05 Hep B Core IgM Ab Negative (Negative) 06/10/18 04:05 Hepatitis C Antibody <0.1 s/co ratio (0.0-0.9) 06/10/18 04:05 HIV 1&2 Antibody Screen NEGATIVE (NEG) 06/07/18 04:15 TB (QFT) Gold In Tube SEE ATTACHED RESULT 06/06/18 20:20 TB Test (QFT) Mitogen SEE ATTACHED RESULT 06/06/18 20:20 TB Test (QFT) Antigen SEE ATTACHED RESULT 06/06/18 20:20 TB Test TB - Nil SEE ATTACHED RESULT 06/06/18 20:20 TB Test (QFT) Interp SEE ATTACHED RESULT 06/06/18 20:20 - Physical Exam Vitals and I&O: Vital Signs Temp 99.6 F 06/25/18 14:41 Pulse 74 06/25/18 14:41 Resp 17 06/25/18 14:43 BP 99/62 06/25/18 14:41 Pulse Ox 98 06/25/18 14:41 Intake & Output 06/25/18 06/25/18 06/26/18 06:59 18:59 06:59 Intake Total 200 520 Output Total 300 Balance 200 220 Weight (lbs) 80.286 kg Intake: Intake, IV Amount 200 Piperacillin Sodium/ 200 Tazobact 4.5 gm In Sodium Chloride 0.9% 100 ml @ 100 mls/hr IV Q8HR ANANDA Rx #:[id number] Oral 520 Output: Urine 300 Other: # Bowel Movements 1 Weight Source Bedscale General: Alert Cardiovascular: Regular rate Lungs: Clear to auscultation Abdomen: Soft, no Tender Extremities: no Edema Neurological: Other (non focal ) Skin: Rash (on the chest wall area) - Procedures Procedures: Procedures Procedure Code Date DRAINAGE OF RIGHT PLEURAL CAVITY, PERC APPROACH, DIAGN [id number] 05/30/18 DRAINAGE OF RIGHT UPPER LUNG LOBE, ENDO, DIAGN [id number] 05/30/18 Assessment/Plan - Assessment Assessment: Fever resolved Bilateral PE pneumonia s/p Hemorrhagic pleural effusion s/p thoracentesis Right UE DVT on anticoagulation Dermatitis better M avium infection per sputum culture (sample 05/21/18) Insomnia - Plan Plan: Patient doing better Fever resolved Case discussed with ID who cleared patient for home discharge with oral antibiotics DC home today Patient was highly advised out patient follow up for open lung biopsy patient understood well Nutritional Asmnt/Malnutr-PDOC - Dietary Evaluation Malnutrition Findings (Please click <Entered> for more info): Nutritional Asmnt/Malnutrition Start: 06/03/18 11: 57 Text: Status: Complete Freq: Protocol: Document 06/03/18 12:44 ELEONORA (Rec: 06/03/18 12:48 ELEONORA NORRIS-[email or web address]) Nutritional Asmnt/Malnutrition Patient General Information Nutritional Screening Moderate Risk Pertinent Medical Hx/Surgical Hx no sig medical hx, appendectomy, smokes about 15 cigarettes a day Subjective Information Pt seen lying in bed at time of visit, stating appetite so so. Pt consumed few breakfast today, has no food preference to give. Per EMR, PO intake 25 -50%. Per nurse, pt has DVT to right arm. Current Diet Order/ Nutrition Support regular Pertinent Medications vancomycin Pertinent Labs 05/30 Na 134, glucose 145, Ca 8. 4 Nutritional Hx/Data Height 1.83 m Height (Calculated Centimeters) 182.9 Current Weight (lbs) 87.09 kg Weight (Calculated Kilograms) 87.1 Weight (Calculated Grams) 82023.7 Joes Body Weight 178 Body Mass Index (BMI) 26.0 Weight Status Overweight GI Symptoms GI Symptoms None Last BM not indicated Difficult in: None Skin Integrity/Comment: intact Current %PO Poor (25-49%) Estimated Nutritional Goals BEE in Kcals: Using Current wt Calories/Kcals/Kg 25-30 based IBW 81kg Kcals Calculated 6971-4201 Protein: Using Current wt Protein g/k Protein Calculated 81 Fluid: ml 2024-243ml (1ml/kcal) Nutritional Problem 1. Problem Problem inadequate food intake Etiology decreased appetite Signs/Symptoms: PO intake 25-30% Malnutrition Alert Is there a minimum of two criteria No selected? Query Text:Check all the applicable criteria. A minimum of two criteria are recommended for diagnosis of either severe or non-severe malnutrition. Malnutrition Related to Morbid Obesity Malnutrition related to morbid obesity No Intervention/Recommendation Comments 1. Continue with current diet as ordered. Encouraged oral intake. 2. Monitor PO intake, wt, labs and skin integrity 3. F/U as moderate risk in 3-5 days, 06/06-06/08, PO check Expected Outcomes/Goals Expected Outcomes/Goals 1. PO intake to meet at least 75% of nutritional needs. 2. Wt stability, skin to remain intact, labs to approach WNL.
--- NOTE | 2018-06-28 14:51 | Pathology Report ---
[id number] Collection Date: 06/05/2018 Surgeon: Dr. Yajaira Pearce Specimen Description: Right pleural fluid for cytology. Gross Description: Received in a large glass container is approximately 1500 mL of reddish-brown, watery fluid. The entire specimen is sent for cytology processing. Microscopic Description: Examination of two cytospins and one cell block shows mostly inflammatory cells, consisting of lymphocytes and neutrophils admixed with small numbers of mesothelial cells. The background contains abundant blood. There is no evidence for atypia. Diagnosis: No cytologic evidence for malignancy, right pleural fluid cytology. [facility]
--- NOTE | 2018-07-04 18:05 | Discharge Summary ---
DATE OF DISCHARGE: 06/25/2018 FINAL DIAGNOSES: 1. Bilateral pulmonary embolism, stable. 2. Pneumonia. 3. Mycobacterium avium infection. 4. Hemorrhagic pleural effusion, status post thoracentesis. 5. Right upper extremity deep venous thrombosis. 6. Dermatitis, better. 7. Insomnia, stable. HOSPITAL COURSE: This is a 57-year-old male who had a very prolonged hospital stay for complex medical issues. Initially, the patient was admitted for shortness of breath, diagnosed with pulmonary embolism and pneumonia. The patient was started on anticoagulation, IV antibiotics. ID and Pulmonology were consulted upon admission as well as liner checker. During the course of the hospital, since the patient had a sputum culture that came back positive, which was collected on the last admission about 2 weeks ago, came back positive for AFB, so the patient was put on airborne isolation. The patient was started on anti-tuberculosis medications and a TB workup was initiated per ID and Pulmonary recommendations. The patient had another 3 sputum collected, which came back negative for any tuberculosis. The patient's priorly positive sputum AFB was final report was came back Mycobacterium avium infection, so tuberculosis medications were discontinued. The patient's isolation was discontinued. Health Department was notified and they agreed with the discontinuation of isolations and discontinuation of the tuberculosis medications. In spite of all the aggressive antibiotic treatment, the patient's pneumonia was not clearing up, so Pulmonology recommended a bronchoscopy. The patient underwent bronchoscopy and biopsy and cultures that were negative for any malignancy or any bacterial growth. The patient also had large pleural effusions, for which he underwent a thoracentesis. The patient was continued on the anticoagulation off and on per Hematology recommendations. The patient also during hospitalization noted to have syncopal episode. The patient had Neurology and Cardiology was consulted and cardiac workup was negative. Cardiology reviewed the echocardiogram, no significant findings were reported CT head was negative. The patient's syncopal episode for most likely attributed to vasovagal episodes. The patient was treated with IV fluids, started on midodrine, the patient's blood pressure improved. The patient was finally cleared for discharge with the agreement of all specialty. The patient was highly advised to follow up with the outpatient Pul[facility]ology [facility] for a right lung biopsy for further evaluations of the patient's abnormal area of focus. The patient verbalized understanding and agreed with the plan. DISCHARGE CONDITION : Stable DISCHARGE MEDICATIONS: Please see medication reconciliation lsit DISCHARGE INSTRUCTION : patient was advised to follow up with primary care doctor as well as outpatient Pulmonology at a [facility] for further evaluation of underlying right-sided abnormal suspicious area for possible open lung biopsy. Patient understood discharge plan well. Patient was given all necessary prescriptions upon discharge. JOB# [id number] [facility]
== END 2018-06-25 15:07 | disposition home or self-care (01) | DRG 134 ==
LOC: ER 09:48 → TELE 13:44 → ICU 06-05 13:59 → MSI 06-14 19:17 → ICU 06-19 13:46 → MSI 06-25 06:46 → TELE 06-25 06:54
PROVIDERS: ADMIT Family Medicine; ATTEND Family Medicine
PROC: 0W993ZX Drainage of Right Pleural Cavity, Percutaneous Approach, Diagnostic (ICD-10-PCS; principal; 2018-06-05)
PROC: 0B9C8ZX Drainage of Right Upper Lung Lobe, Via Natural or Artificial Opening Endoscopic, Diagnostic (ICD-10-PCS; 2018-06-14)
DX: I26.99 Other pulmonary embolism without acute cor pulmonale (principal); J15.8 Pneumonia due to other specified bacteria; J90 Pleural effusion, not elsewhere classified; A31.0 Pulmonary mycobacterial infection; E87.1 Hypo-osmolality and hyponatremia; I82.621 Acute embolism and thrombosis of deep veins of right upper extremity; G47.00 Insomnia, unspecified; F17.210 Nicotine dependence, cigarettes, uncomplicated; J44.0 Chronic obstructive pulmonary disease with (acute) lower respiratory infection; L30.8 Other specified dermatitis; R21 Rash and other nonspecific skin eruption; I95.1 Orthostatic hypotension; Z83.3 Family history of diabetes mellitus; Z90.49 Acquired absence of other specified parts of digestive tract
CPT/HCPCS: 36415-UA; 70450-TC; 71045-TC; 71275-TC; 76942-TC; 80048-TC; 80053-TC; 80074-90; 80202-TC; 81001-TC; 82378-90; 82533-90; 82945-TC; 82948-90; 83605; 83615-TC; 84157-TC; 84484-TC; 85007-TC; 85025-TC; 85379-TC; 85610-TC; 85730-TC; 86021-90; 86141-TC; 86480-90; 86635-90; 86703-TC; 87070; 87070-90; 87075-90; 87086-90; 87102-90; 87116-90; 87205-90; 87206-90; 87556-90; 89051-TC; 90779; 93005; 93970-TC-50; 94640; 94760; 96374; J0456; J0696; J1200; J1650; J1885; J2060; J2250; J2270; J2405; J2543; J3370; J7040; J7613; Z7502; Z7506; Z7512; Z7610